=== PATIENT | male | born 1965 | race Caucasian/White ===

== ENCOUNTER 2020-06-22 07:13 | Inpatient (IN) | payer MEDICARE, MEDICAID, SELFPAY ==
[2020-06-22] VITALS (8 sets, daily range): BP systolic 101–136; BP diastolic 60–87; PULSE 72–104; RESP 16–34; TEMP 36.8–37.4; O2SAT 95–98; BMI 36.6
--- NOTE | 2020-06-22 | CT_ITS ---
EXAMINATION: CT ABDOMEN AND PELVIS WITH CONTRAST CLINICAL INFORMATION: Diffuse abdominal pain. History of diverticulosis COMPARISON: CT abdomen and pelvis 01/10/2014 and ultrasound abdomen 01/05/2014. TECHNIQUE: Multidetector volumetric images were obtained from the superior aspect of the liver through the pubic symphysis following administration 85 mL of Omnipaque 350 intravenous contrast. Sagittal and coronal reformatted images were obtained on the technologist's workstation. Oral contrast: No This CT examination was performed using dose optimization techniques as appropriate, variously including the following: *Automated exposure control *Adjustment of mA and/or kV according to patient size (this includes techniques or standardized protocols for targeted exams where dose is matched to indication/reason for exam; i.e. extremities or head) *Use of iterative reconstruction technique DLP: 841 mGy-cm FINDINGS: LUNG BASES: There is minimal bibasilar atelectasis LIVER, GALLBLADDER, AND BILIARY TREE: The liver is normal in size, shape, and attenuation. No focal hepatic lesion or biliary ductal dilatation is present. The gallbladder is distended with several septations seen 1.7 cm radiolucent calculi. A 2 mm radiolucency is seen in the fundus likely a small stone. PANCREAS: Unremarkable. SPLEEN: Unremarkable. ADRENAL GLANDS: Unremarkable. KIDNEYS AND URETERS: The kidneys are normal in size, shape, and attenuation. No hydronephrosis, hydroureter, or calculi seen. There is a 2.3 x 2.1 cm exophytic cyst upper/mid pole left kidney. There is mild bilateral perinephric stranding. BLADDER: Unremarkable. GASTROINTESTINAL TRACT: There is scattered stool and gas seen throughout the colon without any significant distention. The small bowel loops are normal caliber. The stomach there is mildly distended with oral fluid but appears unremarkable. ABDOMINAL WALL: No significant hernia is appreciated. LYMPH NODES: Normal. VASCULAR: Unremarkable. PELVIC VISCERA: There is moderate prostate enlargement extending into the base of bladder. OSSEOUS STRUCTURES: No lytic or sclerotic process seen. CT/CT abdomen pelvis w con IMPRESSION: No acute intra-abdominal process seen. Mild constipation. Moderate prostate enlargement extending into the base of bladder Radiolucent gallstones with the redundant gallbladder with septations. No radiopaque renal calculi or hydronephrosis. Bilateral perinephric stranding. Exophytic cyst upper mid pole left kidney.
--- NOTE | 2020-06-22 07:30 | XR_ITS ---
EXAMINATION: XR CHEST CLINICAL INFORMATION: Rule out free air.. Chest pain and abdominal pain. COMPARISON: None TECHNIQUE: Frontal view of the chest was obtained. FINDINGS: The lungs are hypoexpanded but clear of acute process. The heart size and pulmonary vascularity is normal. No gross bony abnormality seen. XR/XR chest 1V IMPRESSION: Hypoexpanded lungs without acute process.
--- NOTE | 2020-06-22 07:31 | ECG_ITS ---
Test Reason : ABDOMINAL PAIN Blood Pressure : / mmHG Vent. Rate : 077 BPM Atrial Rate : 077 BPM P-R Int : 172 ms QRS Dur : 096 ms QT Int : 374 ms P-R-T Axes : 050 -11 004 degrees QTc Int : 423 ms Normal sinus rhythm Normal ECG When compared with ECG of 14-MAY-2018 16:41, No significant change was found Referred By: Mary Christensen Electronically Signed By:Chico Roblero
--- NOTE | 2020-06-22 07:34 | ED_ITS ---
HPI - Abdominal Pain General Chief Complaint: Abdominal Pain Stated Complaint: ABD PAIN Time Seen by Provider: 06/22/20 07:25 Source: patient Mode of arrival: EMS Limitations: no limitations History of Present Illness HPI narrative: Patient comes to emergency room complaining of diffuse abdominal pain. Patient states he ate a soup at 23:00, since then he has been complaining of worsening pain. Patient states that his abdomen is very swollen, states he feels that there is a lot of air in it, unable to sit due to pain. Patient complaining of nausea, no vomiting or diarrhea, no fever. MD elicited complaint: abdominal pain Related Data Allergies Allergy/AdvReac Type Severity Reaction Status Date / Time olanzapine [From ZYPREXA] Allergy Unknown UNKNOWN Unverified 03/01/20 16:15 mirtazapine [From REMERON] AdvReac Unknown PAIN IN Unverified 03/01/20 16:15 LEGS sertraline [From ZOLOFT] AdvReac Unknown ANXIETY Unverified 03/01/20 16:15 Review of Systems Review of Systems Constitutional : No Weight loss, No Fever, No Chills, No Night Sweats, No Fatigue, No Malaise ENT/Mouth : No Hearing loss, No Ear Pain, No Nasal Congestion, No Sinus Pain, No Hoarseness, No sore throat, No Rhinorrhea, No Swallowing Difficulty Eyes: No Eye Pain, No Swelling, No Redness, No Foreign Body, No Discharge, No Vision Changes Cardiovascular : No Chest Pain, No SOB, No Dyspnea on Exertion, No Orthopnea, No Edema, No Palpitations Respiratory : No Cough, No Sputum, No Wheezing, No Smoke Exposure, No Dyspnea Gastrointestinal : Complaining of Nausea, No Vomiting, No Diarrhea, No Constipation, complaining of severe diffuse abdominal pain, No Hematochezia, No Melena Genitourinary : no irregular bleeding, No Dysuria, No Urinary Frequency, No Hematuria, No Urinary Incontinence, No Urgency, No Flank Pain, No Urinary Flow Changes, No Hesitancy Musculoskeletal : No joint pain, No Myalgias, No Joint Swelling Skin : No Skin Lesions, No rash Neuro : No Weakness, No Numbness, No Paresthesias, No Loss of Consciousness, No Dizziness, No Headache Psych : No Anxiety/Panic, No Depression, No SI/HI/AH/VH, No Social Issues, Heme/Lymph: No Bruising, No Bleeding,No Lymphadenopathy Endocrine : No Polyuria, No Polydipsia, No Temperature Intolerance Physical Exam Vital Signs: Vital Signs: Last Vital Signs Temp 98.5 F 06/22/20 10:33 Pulse 104 H 06/22/20 13:44 Resp 16 06/22/20 13:44 BP 101/68 06/22/20 13:44 Pulse Ox 96 06/22/20 13:44 Body Mass Index 36.6 Appearance: Alert. Oriented X3. Moderate distress due to pain Eyes: Pupils equal, round and reactive to light. ENT: Pharynx normal. Neck: Normal inspection. Neck supple. No lymph nodes noted. No crepitus CVS: Normal heart rate and rhythm. Pulses normal. Normal S1 and S2 Respiratory: No respiratory distress. Breath sounds normal. No Wheezing. No rales Abdomen: Soft, distended, diffuse tenderness in all quadrants Skin: Skin warm and dry. Mildly pale Extremities: No lower extremity edema. No lower extremity edema. No Lace rations. No Rash Neuro: Oriented X 3. No motor deficit. No sensory deficit. Moving all extermities. No slurred speech. Course Reevaluation(s) Reevaluation #1: Patient feeling much better at this time, still having mild diffuse abdominal pain. I discussed the patient with Dr. Ackerman, at this time, surgery is not indicated. Recommendations: Admission to the medical team I discussed the patient with CASIMIRO Lemon, patient being admitted Time: 10:49 [facility] - Abdominal Pain Lab Data Result diagrams: 06/22/20 07:40 06/22/20 07:40 Labs: Lab Results 06/22/20 06/22/20 06/22/20 Range/Units 07:40 07:40 07:40 WBC 10.3 (4.8-10.8) X10*3/uL RBC 4.94 (4.60-5.80) X10*6/uL Hgb 14.8 (14.0-18.0) g/dl Hct 45.4 (42-52) % MCV 91.9 (80-98) fL MCH 30.0 (27.0-33.0) pg MCHC 32.6 (31.0-36.0) g/dl RDW 11.9 (11.0-16.0) % Plt Count 222 (160-400) X10*3/uL MPV 10.0 (9.4-12.4) fL Immature Gran % (Auto) 0.4 (0.0-0.4) % Neut % (Auto) 66.1 (45-73) % Lymph % (Auto) 29.3 (20-40) % [place] % (Auto) 3.3 (2-11) % Eos % (Auto) 0.6 (0-4) % Baso % (Auto) 0.3 (0-2) % Lymph # (Auto) 3.0 (1.2-4.9) X10*3/uL [place] # (Auto) 0.3 (0.1-1.2) X10*3/uL Eos # (Auto) 0.1 (0.0-0.4) X10*3/uL Baso # (Auto) 0.0 (0.0-0.2) X10*3/uL Abs Immat Gran (auto) 0.04 H (0.00-0.03) X10*3/uL Absolute Neuts (auto) 6.8 (2.0-8.3) X10*3/uL Absolute Nucleated RBC 0.000 (0.0-0.012) X10*3/uL Nucleated RBC % (auto) 0.0 (0.0-0.2) /100WBC Sodium 139 (135-145) mmol/L Potassium 4.5 (3.3-5.1) mmol/l Chloride 103 (96-108) mmol/L Carbon Dioxide 26 (22-29) mmol/L Anion Gap 15 (12-20) BUN 14 (9-16) mg/dL Creatinine 1.07 (0.5-1.4) mg/dL Estim Creat Clear Calc 85.6 Estimated GFR > 60 Random Glucose 166 H (60-115) mg/dL Lactic Acid 1.6 (0.5-2.0) mmol/L Calcium 9.2 (8.4-10.2) mg/dL Total Bilirubin 1.1 H (0.0-1.0) mg/dL Direct Bilirubin 0.8 H (0.0-0.5) mg/dL AST 729 H (5-37) U/L ALT 352 H (0-40) U/L Alkaline Phosphatase 187 H (39-117) U/L Total Protein 7.3 (6.5-8.0) g/dL Albumin 4.4 (3.5-5.0) g/dL Lipase 32 (8-78) U/L Ethyl Alcohol mg/dL COVID-19 ([facility]) (Negative) COVID-19 Clin Com 06/22/20 06/22/20 Range/Units 07:40 08:19 WBC (4.8-10.8) X10*3/uL RBC (4.60-5.80) X10*6/uL Hgb (14.0-18.0) g/dl Hct (42-52) % MCV (80-98) fL MCH (27.0-33.0) pg MCHC (31.0-36.0) g/dl RDW (11.0-16.0) % Plt Count (160-400) X10*3/uL MPV (9.4-12.4) fL Immature Gran % (Auto) (0.0-0.4) % Neut % (Auto) (45-73) % Lymph % (Auto) (20-40) % [place] % (Auto) (2-11) % Eos % (Auto) (0-4) % Baso % (Auto) (0-2) % Lymph # (Auto) (1.2-4.9) X10*3/uL [place] # (Auto) (0.1-1.2) X10*3/uL Eos # (Auto) (0.0-0.4) X10*3/uL Baso # (Auto) (0.0-0.2) X10*3/uL Abs Immat Gran (auto) (0.00-0.03) X10*3/uL Absolute Neuts (auto) (2.0-8.3) X10*3/uL Absolute Nucleated RBC (0.0-0.012) X10*3/uL Nucleated RBC % (auto) (0.0-0.2) /100WBC Sodium (135-145) mmol/L Potassium (3.3-5.1) mmol/l Chloride (96-108) mmol/L Carbon Dioxide (22-29) mmol/L Anion Gap (12-20) BUN (9-16) mg/dL Creatinine (0.5-1.4) mg/dL Estim Creat Clear Calc Estimated GFR Random Glucose (60-115) mg/dL Lactic Acid (0.5-2.0) mmol/L Calcium (8.4-10.2) mg/dL Total Bilirubin (0.0-1.0) mg/dL Direct Bilirubin (0.0-0.5) mg/dL AST (5-37) U/L ALT (0-40) U/L Alkaline Phosphatase (39-117) U/L Total Protein (6.5-8.0) g/dL Albumin (3.5-5.0) g/dL Lipase (8-78) U/L Ethyl Alcohol < 10 mg/dL COVID-19 ([facility]HA) Negative (Negative) COVID-19 Clin Com See Note Imaging Data Chest x-ray: Radiologist's impression: FINDINGS: The lungs are hypoexpanded but clear of acute process. The heart size and pulmonary vascularity is normal. No gross bony abnormality seen. XR/XR chest 1V IMPRESSION: Hypoexpanded lungs without acute process. CT of the abdomen: Radiologist's impression: LUNG BASES: There is minimal bibasilar atelectasis LIVER, GALLBLADDER, AND BILIARY TREE: The liver is normal in size, shape, and attenuation. No focal hepatic lesion or biliary ductal dilatation is present. The gallbladder is distended with several septations seen 1.7 cm radiolucent calculi. A 2 mm radiolucency is seen in the fundus likely a small stone. PANCREAS: Unremarkable. SPLEEN: Unremarkable. ADRENAL GLANDS: Unremarkable. KIDNEYS AND URETERS: The kidneys are normal in size, shape, and attenuation. No hydronephrosis, hydroureter, or calculi seen. There is a 2.3 x 2.1 cm exophytic cyst upper/mid pole left kidney. There is mild bilateral perinephric stranding. BLADDER: Unremarkable. GASTROINTESTINAL TRACT: There is scattered stool and gas seen throughout the colon without any significant distention. The small bowel loops are normal caliber. The stomach there is mildly distended with oral fluid but appears unremarkable. ABDOMINAL WALL: No significant hernia is appreciated. LYMPH NODES: Normal. VASCULAR: Unremarkable. PELVIC VISCERA: There is moderate prostate enlargement extending into the base of bladder. OSSEOUS STRUCTURES: No lytic or sclerotic process seen. CT/CT abdomen pelvis w con IMPRESSION: No acute intra-abdominal process seen. Mild constipation. Moderate prostate enlargement extending into the base of bladder Radiolucent gallstones with the redundant gallbladder with septations. No radiopaque renal calculi or hydronephrosis. Bilateral perinephric stranding. Exophytic cyst upper mid pole left kidney. Abdominal ultrasound: Radiologist's impression: PANCREAS: Normal. LIVER: The liver is normal in size. The liver contour is normal. There is diffuse echogenic liver with areas of focal fatty sparing. There is mild intrahepatic biliary duct dilatation seen. GALLBLADDER: The gallbladder is moderately distended with echogenic stones and echogenic bile, but no wall thickening seen COMMON BILE DUCT: Normal in caliber measuring 0.42 cm in diameter. RIGHT KIDNEY: Normal. No hydronephrosis. No renal calculi or focal parenchymal lesions. The kidney measures 10.9 cm in maximum dimension. FREE FLUID: None. US/US abdomen limited IMPRESSION: Diffuse fatty infiltration of liver with areas of focal fatty sparing. Echogenic stones and echogenic bile but no wall thickening seen. CBD, right kidney and pancreas appears unremarkable. ECG Data Attestation: I personally reviewed and interpreted this ECG as follows: (Sinus rhythm, heart rate 77, no ST segment depressions or elevations, nonspecific T- wave inversions in lead III) Discharge Plan Discharge Clinical Impression: Abdominal pain, LFT elevation Patient Disposition: Admitted As Inpatient [facility] Past Medical History Medical History (Updated 06/22/20 @ 13:51 by Mary Christensen MD) Alcohol abuse Diverticulosis Suicidal ideation Social History Social History Smoked in Last 30 Days: No Use of substances other than those prescribed or required for medical reasons: No Advance Directives: No Advance Directives Information Provided: Yes
[2020-06-22] MEDS: HYDROmorphone HCl 1 MG/ML SYRINGE IVPUSH (07:46)
[2020-06-22] MEDS: ondansetron HCL 4 MG/2 ML VIAL IVPUSH (07:46)
[2020-06-22] MEDS: 0.9 % Sodium Chloride 1,000 ML 999 ML IVCONT (07:46)
[2020-06-22 07:47] LABS: Basophils Percent Auto 0.3 % (0-2); Eosinophils Absolute Auto 0.1 X10*3/uL (0.0-0.4); Eosinophils Percent Auto 0.6 % (0-4); Hematocrit 45.4 % (42-52); Hemoglobin 14.8 g/dl (14.0-18.0); Imm Gran Abs Auto 0.04 X10*3/uL (0.00-0.03); Imm Gran Pct Auto 0.4 % (0.0-0.4); Lymphocytes Percent Auto 29.3 % (20-40); MANUAL DIFF FLAG NO; Mean Corpuscular HGB Conc 32.6 g/dl (31.0-36.0); Mean Corpuscular Volume 91.9 fL (80-98); Monocytes Absolute Auto 0.3 X10*3/uL (0.1-1.2); Monocytes Percent Auto 3.3 % (2-11); Neutrophils Absolute Auto 6.8 X10*3/uL (2.0-8.3); Neutrophils Percent Auto 66.1 % (45-73); Platelet Count 222 X10*3/uL (160-400); Red Blood Count 4.94 X10*6/uL (4.60-5.80); Red Cell Distribution Width 11.9 % (11.0-16.0); White Blood Count 10.3 X10*3/uL (4.8-10.8)
[2020-06-22 08:06] LABS: Lactic Acid 1.6 mmol/L (0.5-2.0)
[2020-06-22 08:08] LABS: Ethanol < 10 mg/dL
[2020-06-22 08:14] LABS: Alanine Aminotransferase 352 U/L (0-40); Albumin Level 4.4 g/dL (3.5-5.0); Alkaline Phosphatase 187 U/L (39-117); Anion Gap 15 (12-20); Aspartate Amino Transferase 729 U/L (5-37); Bilirubin Direct 0.8 mg/dL (0.0-0.5); Bilirubin Total 1.1 mg/dL (0.0-1.0); Blood Urea Nitrogen 14 mg/dL (9-16); Calcium 9.2 mg/dL (8.4-10.2); Carbon Dioxide 26 mmol/L (22-29); Chloride 103 mmol/L (96-108); Creatinine Clr Calc Pharmacy 85.6; Estimated Glomerular Filt Rate > 60; Glucose Random 166 mg/dL (60-115); Lipase 32 U/L (8-78); Potassium 4.5 mmol/l (3.3-5.1); Sodium 139 mmol/L (135-145); Total Protein 7.3 g/dL (6.5-8.0)
[2020-06-22 08:38] LABS: COVID-19 Test Negative (Negative); IDNOW Serial# 9DD0AD1C
[2020-06-22] MEDS: iohexoL 350 MG/ML 100 ML INFUS..BTL 85 ML IV (09:36)
--- NOTE | 2020-06-22 09:53 | US_ITS ---
EXAMINATION: US ABDOMEN LIMITED CLINICAL INFORMATION: Right upper quadrant pain.. COMPARISON: None TECHNIQUE: Real-time imaging of the right upper quadrant abdominal viscera. FINDINGS: PANCREAS: Normal. LIVER: The liver is normal in size. The liver contour is normal. There is diffuse echogenic liver with areas of focal fatty sparing. There is mild intrahepatic biliary duct dilatation seen. GALLBLADDER: The gallbladder is moderately distended with echogenic stones and echogenic bile, but no wall thickening seen COMMON BILE DUCT: Normal in caliber measuring 0.42 cm in diameter. RIGHT KIDNEY: Normal. No hydronephrosis. No renal calculi or focal parenchymal lesions. The kidney measures 10.9 cm in maximum dimension. FREE FLUID: None. US/US abdomen limited IMPRESSION: Diffuse fatty infiltration of liver with areas of focal fatty sparing. Echogenic stones and echogenic bile but no wall thickening seen. CBD, right kidney and pancreas appears unremarkable.
[2020-06-22] MEDS: Prochlorperazine Edisylate 10 MG/2 ML VIAL IVPUSH (10:30)
--- NOTE | 2020-06-22 14:15 | PM.CNGS ---
History of Present Illness Consult details Consult date: 06/22/20 Narrative: 55M, here in the ED for abdominal pain. He says this started late yesterday afternoon. He described this near constant, mostly diffuse. He says this was not limited to the right upper quadrant or epigastric area. He says may have a little nausea. In view of the persistence of pain last night, he came to the ED. He says his pain has actually resolved. He says he no longer has abdominal pain. His AST and ALT were elevated here in the ED. Review of Systems Constitutional: Constitutional: Denies chills and Denies fever(s) Cardiovascular: Cardiovascular: Denies chest pain, Denies dyspnea and Denies dyspnea on exertion Respiratory: Respiratory: Denies cough, Denies dyspnea and Denies dyspnea on exertion Gastrointestinal: Gastrointestinal: Denies hematochezia and Denies change in bowel habits Genitourinary: Genitourinary: Denies hematuria and Denies difficulty urinating Musculoskeletal: Musculoskeletal: Denies back pain and Denies limited range of motion Neurologic: Denies focal weakness and Denies convulsions Psychiatric: Psychiatric: Denies depression and Denies mood swings PMF Past Medical History Medical History Alcohol abuse Diverticulosis Suicidal ideation Social History Social History Smoked in Last 30 Days: No Use of substances other than those prescribed or required for medical reasons: No Advance Directives: No Advance Directives Information Provided: Yes Meds Allergies Allergy/AdvReac Type Severity Reaction Status Date / Time olanzapine [From ZYPREXA] Allergy Unknown UNKNOWN Unverified 03/01/20 16:15 mirtazapine [From REMERON] AdvReac Unknown PAIN IN Unverified 03/01/20 16:15 LEGS sertraline [From ZOLOFT] AdvReac Unknown ANXIETY Unverified 03/01/20 16:15 Physical Exam Vital Signs: Vital Signs: Last Vital Signs Temp 98.5 F 06/22/20 10:33 Pulse 104 H 06/22/20 13:44 Resp 16 06/22/20 13:44 BP 101/68 06/22/20 13:44 Pulse Ox 96 06/22/20 13:44 Body Mass Index 36.6 Const: General: comfortable and no acute distress Orientation/consciousness: patient oriented x3 Neck: Neck: Yes no lymphadenopathy Resp: Auscultation: clear to auscultation bilaterally Cardio: Rhythm: regular rhythm GI: Palpation (GI): Soft to palpation, nontender and no guarding Neuro: General: patient oriented x3 Results Labs Result diagrams: 06/22/20 07:40 06/22/20 07:40 Labs: Abnormal lab results 06/22/20 06/22/20 Range/Units 07:40 07:40 Abs Immat Gran (auto) 0.04 H (0.00-0.03) X10*3/uL Random Glucose 166 H (60-115) mg/dL Total Bilirubin 1.1 H (0.0-1.0) mg/dL Direct Bilirubin 0.8 H (0.0-0.5) mg/dL AST 729 H (5-37) U/L ALT 352 H (0-40) U/L Alkaline Phosphatase 187 H (39-117) U/L Short CBC 06/22/20 Range/Units 07:40 WBC 10.3 (4.8-10.8) X10*3/uL Hgb 14.8 (14.0-18.0) g/dl Hct 45.4 (42-52) % Plt Count 222 (160-400) X10*3/uL BMP 06/22/20 07:40 Sodium 139 Potassium 4.5 Chloride 103 Carbon Dioxide 26 BUN 14 Creatinine 1.07 Calcium 9.2 Liver Function 06/22/20 Range/Units 07:40 Total Bilirubin 1.1 H (0.0-1.0) mg/dL Direct Bilirubin 0.8 H (0.0-0.5) mg/dL AST 729 H (5-37) U/L ALT 352 H (0-40) U/L Alkaline Phosphatase 187 H (39-117) U/L Albumin 4.4 (3.5-5.0) g/dL All other labs normal. Assessment and Plan (1) LFT elevation: Status: Acute Pattern of elevation suggestive more of liver parenchymal disease. The patient has gallstones but no cholecystitis. He currently does not have pain or tenderness anymore. I would recommend following his LFTs. He can have clear liquids and his diet may be advanced as tolerated. He looks well and has a very benign exam. He does not appear to require any surgical intervention at this time.
[2020-06-22 14:19] LABS: Acetaminophen LAB 2 mcg/mL (<30)
--- NOTE | 2020-06-22 15:16 | P.HPHOSP_ITS ---
History of Present Illness Date of Service: 06/22/20 <CASIMIRO Biggs - Last Filed: 06/22/20 15:28> Chief Complaint: Abdominal pain <CASIMIRO Biggs - Last Filed: 06/22/20 15:28> This is a 55-year-old Belarusian-speaking male who presents to the emergency department with abdominal pain. He reports this pain began last evening around 23:00 after eating Cream of Wheat. His pain was persistent and not localized to 1 specific area. He denies any associated nausea, vomiting, diarrhea, fever, chills. In the emergency department he received IV pain medication and his pain resolved. CT scan showed evidence of gallstones but no cholecystitis. He underwent ultrasound which again showed gallstones without cholecystitis as well as ICS fatty infiltration of the liver. LFTs were noted to be elevated. He was evaluated by General surgery who felt this elevation represented parenchymal disease and no urgent surgical intervention was required. Tylenol level was 2. Patient reports using Tylenol once last night otherwise does not use Tylenol on a regular basis. He drinks alcohol on the weekend but not during the week. He denies history of IV drug use or blood transfusion. <CASIMIRO Biggs - Last Filed: 06/22/20 15:28> Review of Systems Review of Systems: Yes all other systems are reviewed and are negative <CASIMIRO Biggs - Last Filed: 06/22/20 15:28> Constitutional: Constitutional: Denies chills and Denies fever(s) <CASIMIRO Biggs - Last Filed: 06/22/20 15:28> Cardiovascular: Cardiovascular: Denies chest pain <CASIMIRO Biggs Last Filed: 06/22/20 15:28> Respiratory: Respiratory: Denies cough <CASIMIRO Biggs Last Filed: 06/22/20 15:28> Gastrointestinal: Gastrointestinal: Reports abdominal pain, Denies diarrhea, Denies nausea and Denies vomiting <CASIMIRO Biggs Last Filed: 06/22/20 15:28> Neurologic: Denies focal weakness and Denies convulsions <CASIMIRO Biggs Last Filed: 06/22/20 15:28> [facility] Medical History: Medical History (Updated 06/23/20 @ 12:44 by CASIMIRO Ayala) Alcohol abuse Anxiety Asthma Diverticulosis GERD (gastroesophageal reflux disease) Hyperlipidemia Hypertension BRI (obstructive sleep apnea) Suicidal ideation <CASIMIRO Biggs - Last Filed: 06/22/20 15:28> Functional capacity: independent ambulation <CASIMIRO Biggs - Last Filed: 06/22/20 15:28> Family history: reviewed and not pertinent <CASIMIRO Biggs - Last Filed: 06/22/20 15:28> Social History: Social History (Updated 06/22/20 @ 15:22 by CASIMIRO Biggs) Household Members: Friend(s) Alcohol intake: current Alcohol intake frequency: does not drink Smoking Status: Former smoker Smoked in Last 30 Days: No Use of substances other than those prescribed or required for medical reasons: No Advance Directives: No Advance Directives Information Provided: Yes <CASIMIRO Biggs - Last Filed: 06/22/20 15:28> Meds Allergies/Adverse reactions: Allergies Allergy/AdvReac Type Severity Reaction Status Date / Time olanzapine [From ZYPREXA] Allergy Unknown UNKNOWN Unverified 03/01/20 16:15 mirtazapine [From REMERON] AdvReac Unknown PAIN IN Unverified 03/01/20 16:15 LEGS sertraline [From ZOLOFT] AdvReac Unknown ANXIETY Unverified 03/01/20 16:15 <CASIMIRO Biggs - Last Filed: 06/22/20 15:28> Home medications: Home Medications Medication Instructions Recorded Confirmed Type albuterol sulfate [Ventolin HFA] 2 puff INHALATION Q4H PRN 06/22/20 06/22/20 History budesonide-formoterol [Symbicort] 2 puff INHALATION BID 06/22/20 06/22/20 History clonazepam 2 mg PO BEDTIME 06/22/20 06/22/20 History dorzolamide-timolol [Cosopt] 1 drp OPHTHALMIC (EYE) BID 06/22/20 06/22/20 History duloxetine [Cymbalta] 60 mg PO DAILY 06/22/20 06/22/20 History glimepiride 1 mg PO DAILY 06/22/20 06/22/20 History ketoconazole 1 appl TOPICAL 2XW PRN 06/22/20 06/22/20 History loratadine 10 mg PO DAILY PRN 06/22/20 06/22/20 History montelukast [Singulair] 10 mg PO BEDTIME 06/22/20 06/22/20 History naltrexone 50 mg PO DAILY 06/22/20 06/22/20 History omeprazole [Prilosec] 20 mg PO BID 06/22/20 06/22/20 History rosuvastatin 40 mg PO DAILY 06/22/20 06/22/20 History tamsulosin [Flomax] 0.4 mg PO BEDTIME 06/22/20 06/22/20 History verapamil 100 mg PO BEDTIME 06/22/20 06/22/20 History <CASIMIRO Biggs - Last Filed: 06/22/20 15:28> Physical Exam Vital Signs and Narrative: Vital Signs: Last Vital Signs Temp 98.5 F 06/22/20 10:33 Pulse 104 H 06/22/20 13:44 Resp 20 06/22/20 14:54 BP 101/68 06/22/20 13:44 Pulse Ox 96 06/22/20 13:44 Body Mass Index 36.6 <CASIMIRO Biggs Last Filed: 06/22/20 15:28> Const: Nutritional Appearance: well nourished <CASIMIRO Biggs Last Filed: 06/22/20 15:28> Orientation/consciousness: patient oriented x3 <CASIMIRO Biggs Last Filed: 06/22/20 15:28> HENMT: Head: Yes normocephalic and Yes atraumatic <CASIMIRO Biggs Last Filed: 06/22/20 15:28> Eyes: Sclerae: sclerae normal <CASIMIRO Biggs Last Filed: 06/22/20 15:28> Chest: Chest palpation & inspection: normal inspection of the chest <CASIMIRO Biggs Last Filed: 06/22/20 15:28> Resp: Effort & Inspection: normal respiratory effort and no respiratory distress <CASIMIRO Biggs Last Filed: 06/22/20 15:28> Auscultation: clear to auscultation bilaterally <CASIMIRO Biggs - Last Filed: 06/22/20 15:28> Cardio: Rate: regular rate <CASIMIRO Biggs - Last Filed: 06/22/20 15:28> Rhythm: regular rhythm <CASIMIRO Biggs - Last Filed: 06/22/20 1 5:28> GI: Palpation (GI): Soft to palpation and nontender <CASIMIRO Biggs - Last Filed: 06/22/20 15:28> Skin: General skin exam: no rashes or lesions noted <CASIMIRO Biggs - Last Filed: 06/22/20 15:28> Neuro: General: patient oriented x3 <CASIMIRO Biggs - Last Filed: 06/22/20 15:28> Cranial nerves: Yes CN's II-XII intact bilaterally and Yes Bilaterally intact EOM present <CASIMIRO Biggs - Last Filed: 06/22/20 15:28> Extrem: General: Yes normal to inspection <CASIMIRO Biggs - Last Filed: 06/22/20 15:28> Results Labs CBC and Chem 7: : 06/22/20 07:40 06/23/20 06:05 <CASIMIRO Biggs - Last Filed: 06/22/20 15:28> Labs: Laboratory Results - last 24 hr 06/22/20 06/22/20 06/22/20 07:40 07:40 07:40 MCV 91.9 MCH 30.0 MCHC 32.6 RDW 11.9 Plt Count 222 MPV 10.0 Immature Gran % (Auto) 0.4 Neut % (Auto) 66.1 Lymph % (Auto) 29.3 [place] % (Auto) 3.3 Eos % (Auto) 0.6 Baso % (Auto) 0.3 Lymph # (Auto) 3.0 [place] # (Auto) 0.3 Eos # (Auto) 0.1 Baso # (Auto) 0.0 Abs Immat Gran (auto) 0.04 H Absolute Neuts (auto) 6.8 Absolute Nucleated RBC 0.000 Nucleated RBC % (auto) 0.0 Anion Gap 15 Estim Creat Clear Calc 85.6 Estimated GFR > 60 Random Glucose 166 H Lactic Acid 1.6 Calcium 9.2 Total Bilirubin 1.1 H Direct Bilirubin 0.8 H AST 729 H ALT 352 H Alkaline Phosphatase 187 H Total Protein 7.3 Albumin 4.4 Lipase 32 Acetaminophen Ethyl Alcohol COVID-19 ([facility]) COVID-19 Clin Com 06/22/20 06/22/20 06/22/20 07:40 08:19 13:51 MCV MCH MCHC RDW Plt Count MPV Immature Gran % (Auto) Neut % (Auto) Lymph % (Auto) [place] % (Auto) Eos % (Auto) Baso % (Auto) Lymph # (Auto) [place] # (Auto) Eos # (Auto) Baso # (Auto) Abs Immat Gran (auto) Absolute Neuts (auto) Absolute Nucleated RBC Nucleated RBC % (auto) Anion Gap Estim Creat Clear Calc Estimated GFR Random Glucose Lactic Acid Calcium Total Bilirubin Direct Bilirubin AST ALT Alkaline Phosphatase Total Protein Albumin Lipase Acetaminophen 2 Ethyl Alcohol < 10 COVID-19 ([facility]) Negative COVID-19 Clin Com See Note <CASIMIRO Biggs - Last Filed: 06/22/20 15:28> Imaging Radiologist's Impressions: Impressions Abdomen/Pelvis CT 06/22/20 00:00 IMPRESSION: No acute intra-abdominal process seen. Mild constipation. Moderate prostate enlargement extending into the base of bladder Radiolucent gallstones with the redundant gallbladder with septations. No radiopaque renal calculi or hydronephrosis. Bilateral perinephric stranding. Exophytic cyst upper mid pole left kidney. Chest X-Ray 06/22/20 07:30 IMPRESSION: Hypoexpanded lungs without acute process. Abdomen Ultrasound 06/22/20 09:53 IMPRESSION: Diffuse fatty infiltration of liver with areas of focal fatty sparing. Echogenic stones and echogenic bile but no wall thickening seen. CBD, right kidney and pancreas appears unremarkable. <CASIMIRO Biggs - Last Filed: 06/22/20 15:28> Assessment and Plan (1) LFT elevation: Problem details: No acute ABD pain. ABD soft, non, tender, no guarding. VSS. Tbili and ALT continue to elevate suggesting liver pathology. AST improving. <CASIMIRO Biggs - Last Filed: 06/22/20 15:28> Status: Acute <CASIMIRO Biggs - Last Filed: 06/22/20 15:28> This is a 55-year-old male with history of BRI, hypertension, dyslipidemia, anxiety, depression, asthma presents to the emergency department with abdominal pain found to have elevated LFTs Abdominal pain Resolved Elevated LFTs Gallstone seen on imaging but no obstruction evaluated by surgery who feels elevated LFTs are secondary to parenchymal disease Diffuse Fatty infiltration noted. Also reports alcohol use every weekend Tylenol level 2 Hepatitis panel pending -trend LFTs -clear liquid diet, advance as tolerated BRI CPAP The remainder of his home medications will be continued once med reconciliation has been completed DVT prophylaxis-Lovenox Code status-full code This case was discussed with Dr. Rivera <CASIMIRO Biggs - Last Filed: 06/22/20 15:28>
[2020-06-22] MEDS: Enoxaparin Sodium 40 MG/0.4 ML SYRINGE SUBCUT (18:45)
[2020-06-22] MEDS: 0.9 % Sodium Chloride Flush 3 ML SYRINGE IVFLUSH (18:45)
[2020-06-22 21:45] LABS: INTERNATIONAL NORM RATIO 1.1 (0.9-1.1); Prothrombin Time 13.2 SEC (10.8-13.0)
[2020-06-22 22:46] LABS: Glucose Urine UA NEG (NEG); Leukocyte Esterase Urine NEG (NEG); Nitrite Urine NEG (NEG); PH 6.5 (5.0-8.0); Urine Blood NEG (NEG); Urine Ketones NEG (NEG); Urine Protein NEG (NEG-TRACE)
[2020-06-22 22:55] LABS: Amphetamine Screen Urine Not Detected (Not Detect); Barbiturates, Urine Not Detected (Not Detect); Benzodiazepines Screen Urine Not Detected (Not Detect); Cannabinoid Screen Urine Not Detected (Not Detect); Cocaine Screen Urine Not Detected (Not Detect); Opiate Screen Urine Not Detected (Not Detect); Phencyclidine Screen Urine Not Detected (Not Detect)
[2020-06-22 23:33] LABS: Appearance Urine CLEAR; Color Urine YELLOW; UACC Culture Trigger NO
[2020-06-23] VITALS (8 sets, daily range): BP systolic 120–142; BP diastolic 73–90; PULSE 68–84; RESP 16–20; TEMP 36.7–37.2; O2SAT 96–98
[2020-06-23] MEDS: 0.9 % Sodium Chloride Flush 3 ML SYRINGE IVFLUSH ×4 (01:44→21:34)
[2020-06-23] MEDS: clonazePAM 1 MG TABLET PO ×2 (02:28→21:31)
[2020-06-23 06:40] LABS: Alanine Aminotransferase 528 U/L (0-40); Albumin Level 4.5 g/dL (3.5-5.0); Alkaline Phosphatase 185 U/L (39-117); Anion Gap 15 (12-20); Aspartate Amino Transferase 386 U/L (5-37); Bilirubin Direct 1.7 mg/dL (0.0-0.5); Bilirubin Total 2.6 mg/dL (0.0-1.0); Blood Urea Nitrogen 11 mg/dL (9-16); Carbon Dioxide 24 mmol/L (22-29); Chloride 104 mmol/L (96-108); Creatinine Clr Calc Pharmacy 105.3; Estimated Glomerular Filt Rate > 60; Glucose Random 110 mg/dL (60-115); Potassium 3.8 mmol/l (3.3-5.1); Sodium 139 mmol/L (135-145); Total Protein 7.2 g/dL (6.5-8.0)
[2020-06-23] MEDS: DULoxetine HCl 60 MG CAPSULE.DR PO (09:45)
[2020-06-23] MEDS: Naltrexone HCl 50 MG TABLET PO (09:45)
[2020-06-23] MEDS: Fluticasone/Vilanterol 100/25 BLST.W.DEV 1 PUFF INHALE (09:45)
[2020-06-23] MEDS: Dorzolamide/Timolo 2.23%/0.68% 10 ML DRBTL 1 DROP EYE-BOTH (09:45)
--- NOTE | 2020-06-23 11:26 | PM.PNGS ---
Subjective Subjective Date of Service: 06/23/20 <CASIMIRO Ayala - Last Filed: 06/23/20 14:16> 06/23/20 <Ann Marie Montero MD - Last Filed: 06/23/20 14:21> Patient reports: no new complaints <CASIMIRO Ayala - Last Filed: 06/23/20 14:16> Interval history: Patient seen in the ED. He is resting comfortably in bed. He denies any ongoing pain. No N/V/D. <CASIMIRO Ayala - Last Filed: 06/23/20 14:16> Physical Exam Vital Signs: Vital Signs: Last Vital Signs Temp 98.1 F 06/23/20 11:16 Pulse 68 06/23/20 11:16 Resp 17 06/23/20 11:16 BP 142/79 H 06/23/20 11:16 Pulse Ox 96 06/23/20 11:16 Body Mass Index 36.6 <CASIMIRO Ayala - Last Filed: 06/23/20 14:16> Const: General: no acute distress <CASIMIRO Ayala - Last Filed: 06/23/20 14:16> Nutritional Appearance: obese <CASIMIRO Ayala - Last Filed: 06/23/20 14:16> GI: Inspection: Yes normal to inspection and Yes Abdominal panniculus present <CASIMIRO Ayala - Last Filed: 06/23/20 14:16> Palpation (GI): Soft to palpation <CASIMIRO Ayala - Last Filed: 06/23/20 14:16> Skin: General skin exam: no rashes or lesions noted <CASIMIRO Ayala - Last Filed: 06/23/20 14:16> Extrem: General: Yes normal to inspection, Yes no clubbing, cyanosis or edema and Yes no calf tenderness <CASIMIRO Ayala - Last Filed: 06/23/20 14:16> Progress Note: A&P Assessment and plan (1) LFT elevation: Problem details: No acute ABD pain. ABD soft, non, tender, no guarding. VSS. Tbili and ALT continue to elevate suggesting liver pathology. AST improving. <CASIMIRO Ayala - Last Filed: 06/23/20 14:16> Status: Acute <CASIMIRO Ayala - Last Filed: 06/23/20 14:16> Assessment and Plan: Continue current care. Will continue to monitor No surgical intervention needed at this time Will consult GI for evaluation. <CASIMIRO Ayala - Last Filed: 06/23/20 14:16> . General Surgery Attending - Juwan Montero M.D. Patient was evaluated and examined at the bedside with Mr. Giorgio Jurado PA-C. I confirm above findings and plan as documented. He is comfortable today without abdominal pain. Non surgical as per DR. Ackerman. Will obtain GI consultation. <Ann Marie Montero MD - Last Filed: 06/23/20 14:21> Fall Risk Details Current Medications: Current Medications Generic Name Dose Route Start Last Admin Trade Name Freq PRN Reason Stop Dose Admin Clonazepam 1 mg 06/23/20 02:10 06/23/20 02:28 Clonazepam 1 Mg Tablet PO 1 mg BEDTIME HUMBERTO Administration Docusate Sodium 100 mg 06/22/20 15:13 Docusate Sodium 100 Mg Capsule PO DAILY PRN Constipation Dorzolamide/Timolol 1 drop 06/23/20 09:00 06/23/20 09:45 Dorzolamide/Timolo 2.23%/0.68% 10 Ml Drbtl EYE-BOTH 1 drop BID HUMBERTO Administration Duloxetine HCl 60 mg 06/23/20 09:00 06/23/20 09:45 Duloxetine Hcl 60 Mg Capsule.Dr PO 60 mg DAILY HUMBERTO Administration Enoxaparin Sodium 40 mg 06/22/20 15:15 06/22/20 18:45 Enoxaparin Sodium 40 Mg/0.4 Ml Syringe SUBCUT 40 mg Q24H HUMBERTO Administration Fluticasone/Vilanterol 1 puff 06/23/20 09:00 06/23/20 09:45 Fluticasone/Vilanterol 100/25 Blst.W.Dev INHALE 1 puff DAILY HUMBERTO Administration Montelukast Sodium 10 mg 06/23/20 21:00 Montelukast Sodium 10 Mg Tablet PO BEDTIME HUMBERTO Naltrexone HCl 50 mg 06/23/20 09:00 06/23/20 09:45 Naltrexone Hcl 50 Mg Tablet PO 50 mg DAILY HUMBERTO Administration Ondansetron HCl 4 mg 06/22/20 15:13 Ondansetron Hcl 4 Mg/2 Ml Vial IVPUSH Q8H PRN Nausea and Vomiting Pharmacy Consult 1 each 06/22/20 15:08 Consult Rx Perform Med Rec MISCELLANE ONCE PRN Consult order Sodium Chloride 3 ml 06/22/20 16:00 06/23/20 09:45 0.9 % Sodium Chloride Flush 3 Ml Syringe IVFLUSH 3 ml QSHIFT HUMBERTO Administration Tamsulosin HCl 0.4 mg 06/23/20 21:00 Tamsulosin Hcl 0.4 Mg Capsule PO BEDTIME HUMBERTO Verapamil HCl 100 mg 06/23/20 21:00 Verapamil Hcl Sr 100 Mg Cap24h.Pct PO BEDTIME HUMBERTO Protocol <CASIMIRO Ayala - Last Filed: 06/23/20 14:16> Time Spent With Patient Time: Total time spent is greater than 50% in coordination of care (as documented) at patient's floor/unit and/or counseling patient: <CASIMIRO Ayala - Last Filed: 06/23/20 14:16> Time with patient: less than 15 minutes <Ann Marie Montero MD - Last Filed: 06/23/20 14:21> Progress Note: Quality VTE Deep Vein Thrombosis/Pulmonary Embolism Present on Admission: No <CASIMIRO Ayala - Last Filed: 06/23/20 14:16>
--- NOTE | 2020-06-23 13:31 | P.CNGI_ITS ---
History of Present Illness Data of Consult Service Date: 06/23/20 Requesting physician: Giorgio Jurado Primary Care Provider: Unknown Physician HPI Reason for consult: Abdominal pain, elevated LFTs, gallstones. 55 year old Jordanian-speaking male [place] [facility] on morning of 06/22/2020 with 1 day history of sudden onset of diffuse abdominal pain: Patient comes to emergency room complaining of diffuse abdominal pain. Patient states he ate a soup at 23:00, since then he has been complaining of worsening pain. Patient states that his abdomen is very swollen, states he feels that there is a lot of air in it, unable to sit due to pain. Patient complaining of nausea, no vomiting or diarrhea, no fever. MD elicited complaint: abdominal pain Lab evaluation showed elevated LFTs. (of note patient had normal LFTs in Apr, 2018). IMAGING STUDIES: 06/22/[address] SCAN SHOWED: No acute intra-abdominal process seen. Mild constipation. Moderate prostate enlargement extending into the base of bladder Radiolucent gallstones with the redundant gallbladder with septations. No radiopaque renal calculi or hydronephrosis. Bilateral perinephric stranding. Exophytic cyst upper mid pole left kidney. 06/22/20 ABDOMINAL ULTRASOUND SHOWED: Diffuse fatty infiltration of liver with areas of focal fatty sparing. Echogenic stones and echogenic bile but no wall thickening seen. CBD, right kidney and pancreas appears unremarkable. Pt noted generalized abdominal pain 10-15 min after eating Cream of Wheat. Pain was throbbing in character and 10/10 in intensity. His pain was persistent and not localized to 1 specific area. He denies any associated nausea, vomiting, diarrhea, fever, chills or change in BMs. Patient denies symptoms of heartburn, dysphagia, recent change in appetite or weight. Denies recent change in bowel habits, constipation, diarrhea, black stools or rectal bleeding. Pain resolved after patient was given IV pain medication In the ER. Abd CT and US findings as noted above. Pt was evaluated by General surgery who felt this elevation represented parenchymal disease and no urgent surgical intervention was required. Tylenol level was 2. Patient reports using Tylenol once last night otherwise does not use Tylenol on a regular basis. He drinks alcohol on the weekend but not during the week. He denies history of IV drug use or blood transfusion. Patient denies major cardiac or pulmonary problems, He wears a CPAP machine at night for obstructive sleep apnea Denies problems with anesthesia in the past. Denies being on chronic anticoagulation. Patient denies known family history of liver disease, colon polyps, colon cancer or other GI malignancies. Pt has 3 children and is on disability. 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 PAST GI HISTORY BY REVIEW OF MEDICAL RECORDS: Jul 2012 colonoscopy was performed by Dr. Ackerman and showed internal and external hemorrhoids and no polyps Review of Systems Constitutional: Constitutional: Denies fever(s), Denies headache(s) and Denies weight loss Eyes: Eyes: Denies eye discharge and Denies irritation ENT: Reports Normal hearing present, Denies dysphagia, Denies dizziness and Denies headache(s) Cardiovascular: Cardiovascular: Denies chest pain, Denies leg edema, Reports dyspnea and Denies dyspnea on exertion Respiratory: Respiratory: Denies cough, Reports dyspnea and Denies dyspnea on exertion Gastrointestinal: Gastrointestinal: Reports abdominal pain, Denies change in bowel habits, Denies dysphagia and Denies heartburn Genitourinary: Genitourinary: Denies dysuria Musculoskeletal: Musculoskeletal: Denies back pain and Reports arthralgias Integumentary/Breasts: Skin/Breast: Denies pruritus, Denies rash and Denies jaundice Neurologic: Reports Normal hearing present, Denies dizziness, Denies headache(s), Denies focal weakness and Denies convulsions Psychiatric: Psychiatric: Denies anxiety, Reports depression and Denies panic attacks Endocrine: Endocrine: Denies cold intolerance, Denies flushing and Denies heat intolerance PMFSH Past Medical History Medical History Alcohol abuse Anxiety Asthma Diverticulosis GERD (gastroesophageal reflux disease) Hyperlipidemia Hypertension BRI (obstructive sleep apnea) Suicidal ideation Functional capacity: independent ambulation Family History Family history: reviewed and not pertinent Surgical History Surgical History History of laparoscopic cholecystectomy Social History Social History Household Members: Significant Other Housing: Apartment Alcohol intake: current Alcohol intake frequency: a few times a month Smoking Status: Former smoker service: No Current occupational status: disabled Meds Allergies Allergy/AdvReac Type Severity Reaction Status Date / Time olanzapine [From ZYPREXA] Allergy Unknown UNKNOWN Verified 07/04/20 11:28 mirtazapine [From REMERON] AdvReac Unknown PAIN IN Verified 07/04/20 11:28 LEGS sertraline [From ZOLOFT] AdvReac Unknown ANXIETY Verified 07/04/20 11:28 Home Medications Medication Instructions Recorded Confirmed Type albuterol sulfate [Ventolin HFA] 2 puff INHALATION Q4H PRN 06/22/20 07/04/20 History budesonide-formoterol [Symbicort] 2 puff INHALATION BID 06/22/20 07/04/20 Hi story clonazepam 2 mg PO BEDTIME 06/22/20 07/04/20 History dorzolamide-timolol [Cosopt] 1 drp OPHTHALMIC (EYE) BID 06/22/20 07/04/20 History duloxetine [Cymbalta] 60 mg PO DAILY 06/22/20 07/04/20 History glimepiride 1 mg PO DAILY 06/22/20 07/04/20 History ketoconazole 1 appl TOPICAL 2XW PRN 06/22/20 07/04/20 History loratadine 10 mg PO DAILY PRN 06/22/20 07/04/20 History montelukast [Singulair] 10 mg PO BEDTIME 06/22/20 07/04/20 History naltrexone 50 mg PO DAILY 06/22/20 07/04/20 History omeprazole 20 mg PO BID 06/22/20 07/04/20 History tamsulosin [Flomax] 0.4 mg PO BEDTIME 06/22/20 07/04/20 History verapamil 100 mg PO BEDTIME 06/22/20 07/04/20 History aripiprazole 2 mg PO DAILY 06/26/20 07/04/20 History aspirin 81 mg PO DAILY 06/26/20 07/04/20 History metformin 500 mg PO BID 06/26/20 07/04/20 History rosuvastatin 40 mg PO DAILY 06/26/20 07/04/20 History Physical Exam Vital Signs: Vital Signs: Last Vital Signs Temp 98.1 F 06/23/20 11:16 Pulse 68 06/23/20 11:16 Resp 17 06/23/20 11:16 BP 142/79 H 06/23/20 11:16 Pulse Ox 96 06/23/20 11:16 Body Mass Index 36.6 Const: General: no acute distress Nutritional Appearance: obese Orientation/consciousness: patient oriented x3 Limitations: no limitations HENMT: Head: Yes normal to inspection Ears: hearing grossly normal bilaterally Mouth: Normal oral and palatal mucosa present Eyes: Sclerae: sclerae normal Pupils: Equal, round and reactive pupils present Neck: Neck: Yes normal visual inspection Chest: Chest palpation & inspection: normal inspection of the chest Resp: Effort & Inspection: normal respiratory effort Auscultation: clear to auscultation bilaterally Cardio: Palpation: normal PMI Rate: regular rate Rhythm: regular rhythm Heart sounds: S1 normal heart sound present, S2 normal heart sound present and no murmurs GI: Inspection: Yes normal to inspection and Yes obesity Palpation (GI): Soft to palpation, nontender and No hepatosplenomegaly present Auscultation: normal bowel sounds Rectal Exam - Male: Yes deferred Skin: General skin exam: no rashes or lesions noted Neuro: General: patient oriented x3, gait normal and moves all extremities Cranial nerves: Yes Equal, round and reactive pupils present and Yes Normal hearing present Psych: Appearance: grossly normal Mental Status: mental status grossly normal Results Labs CBC & Chem 7: 06/25/20 09:52 06/23/20 06:05 Labs: BMP 06/23/20 06:05 Sodium 139 Potassium 3.8 Chloride 104 Carbon Dioxide 24 BUN 11 Creatinine 0.87 Calcium 9.0 Liver Function 06/23/20 Range/Units 06:05 Total Bilirubin 2.6 H (0.0-1.0) mg/dL Direct Bilirubin 1.7 H (0.0-0.5) mg/dL AST 386 H (5-37) U/L ALT 528 H (0-40) U/L Alkaline Phosphatase 185 H (39-117) U/L Albumin 4.5 (3.5-5.0) g/dL Urine 06/22/20 Range/Units 22:37 Urine Color YELLOW Urine Appearance CLEAR Urine pH 6.5 (5.0-8.0) Ur Specific [place] 1.020 (1.005-1.025) Urine Protein NEG (NEG-TRACE) MG/DL Urine Glucose (UA) NEG (NEG) MG/DL Microbiology Microbiology Results: Microbiology 06/22/20 07:52 Blood - Venous Blood Culture - Preliminary No growth after 24 hours. 06/22/20 07:40 Blood - Venous Blood Culture - Preliminary No growth after 24 hours. Assessment and Plan (1) Abdominal pain: Qualifiers: Abdominal location: unspecified location Qualified Code(s): R10.9 - Unspecified abdominal pain Status: Resolved (2) LFT elevation: Status: Acute (3) Gallstones: Status: Resolved 55 Jordanian-speaking male admitted with history of sudden onset generalized abdominal pain, elevated LFTs and gallstones on imaging studies without obvious biliary ductal dilation. His symptoms are suggestive of a biliary source of abd pain - likely due to passage of small stone or sludge into the bile duct. (CBD dilation may not be seen in early imaging studies) Acute viral hepatitis is less likely. RECOMMENDATIONS: 1. Monitor LFTs daily. 2. MRCP to rule out CBD stone or sludge. 3. Await results of hepatitis serologies. 4. If pt develops fever or chills, he can be started on IV antibiotics.
--- NOTE | 2020-06-23 13:45 | HO.PM.IMPN ---
Subjective Subjective Date of Service: 06/23/20 Interval History: Seen in f/u for abdominal pain and elevatd LFTs which seem worse today, and abdominal pain is better Constitutional Constitutional: Denies fever(s) Gastrointestinal Gastrointestinal: Reports abdominal pain, Denies diarrhea, Denies nausea and Denies vomiting Physical Exam Vital Signs: Vital Signs: Last Vital Signs Temp 98.1 F 06/23/20 11:16 Pulse 68 06/23/20 11:16 Resp 17 06/23/20 11:16 BP 142/79 H 06/23/20 11:16 Pulse Ox 96 06/23/20 11:16 Body Mass Index 36.6 Const: Nutritional Appearance: well nourished Orientation/consciousness: patient oriented x3 Eyes: Sclerae: sclerae normal Resp: Effort & Inspection: normal respiratory effort and no respiratory distress Auscultation: clear to auscultation bilaterally Cardio: Rate: regular rate Rhythm: regular rhythm GI: Palpation (GI): Soft to palpation and nontender Skin: General skin exam: no rashes or lesions noted Neuro: General: patient oriented x3 Objective Data Current Medications Generic Name Dose Route Start Last Admin Trade Name Freq PRN Reason Stop Dose Admin Clonazepam 1 mg 06/23/20 02:10 06/23/20 02:28 Clonazepam 1 Mg Tablet PO 1 mg BEDTIME HUMBERTO Administration Docusate Sodium 100 mg 06/22/20 15:13 Docusate Sodium 100 Mg Capsule PO DAILY PRN Constipation Dorzolamide/Timolol 1 drop 06/23/20 09:00 06/23/20 09:45 Dorzolamide/Timolo 2.23%/0.68% 10 Ml Drbtl EYE-BOTH 1 drop BID HUMBERTO Administration Duloxetine HCl 60 mg 06/23/20 09:00 06/23/20 09:45 Duloxetine Hcl 60 Mg Capsule.Dr PO 60 mg DAILY HUMBERTO Administration Enoxaparin Sodium 40 mg 06/22/20 15:15 06/22/20 18:45 Enoxaparin Sodium 40 Mg/0.4 Ml Syringe SUBCUT 40 mg Q24H HUMBERTO Administration Fluticasone/Vilanterol 1 puff 06/23/20 09:00 06/23/20 09:45 Fluticasone/Vilanterol 100/25 Blst.W.Dev INHALE 1 puff DAILY HUMBERTO Administration Montelukast Sodium 10 mg 06/23/20 21:00 Montelukast Sodium 10 Mg Tablet PO BEDTIME HUMBERTO Naltrexone HCl 50 mg 06/23/20 09:00 06/23/20 09:45 Naltrexone Hcl 50 Mg Tablet PO 50 mg DAILY HUMBERTO Administration Ondansetron HCl 4 mg 06/22/20 15:13 Ondansetron Hcl 4 Mg/2 Ml Vial IVPUSH Q8H PRN Nausea and Vomiting Pharmacy Consult 1 each 06/22/20 15:08 Consult Rx Perform Med Rec MISCELLANE ONCE PRN Consult order Sodium Chloride 3 ml 06/22/20 16:00 06/23/20 09:45 0.9 % Sodium Chloride Flush 3 Ml Syringe IVFLUSH 3 ml QSHIFT HUMBERTO Administration Tamsulosin HCl 0.4 mg 06/23/20 21:00 Tamsulosin Hcl 0.4 Mg Capsule PO BEDTIME HUMBERTO Verapamil HCl 100 mg 06/23/20 21:00 Verapamil Hcl Sr 100 Mg Cap24h.Pct PO BEDTIME [facility] Protocol Labs CBC & Chem 7: 06/22/20 07:40 06/23/20 06:05 Microbiology Microbiology Results: Microbiology 06/22/20 07:52 Blood - Venous Blood Culture - Preliminary No growth after 24 hours. 06/22/20 07:40 Blood - Venous Blood Culture - Preliminary No growth after 24 hours. Quality VTE Deep Vein Thrombosis/Pulmonary Embolism Present on Admission: No Assessment and Plan (1) LFT elevation: Problem details: No acute ABD pain. ABD soft, non, tender, no guarding. VSS. Tbili and ALT continue to elevate suggesting liver pathology. AST improving. Status: Acute Assessment and Plan: 55-year-old male with history of BRI, hypertension, dyslipidemia, anxiety, depression, asthma presents to the emergency department with abdominal pain found to have elevated LFTs Abdominal pain Resolved Elevated LFTs are worse, INR is within normal. Gallstone seen on imaging but no obstruction evaluated by surgery who feels elevated LFTs are secondary to parenchymal disease Diffuse Fatty infiltration noted. Also reports alcohol use every weekend up to 5 beers Tylenol level is within normal Hepatitis panel pending -trend LFTs -clear liquid diet, advance as tolerated -Seen by surgery and they are defering to GI, therefore GI consult BRI CPAP DVT prophylaxis-Lovenox Code status-full code This case was discussed with Dr. Rivera
[2020-06-23] MEDS: Enoxaparin Sodium 40 MG/0.4 ML SYRINGE SUBCUT (15:47)
--- NOTE | 2020-06-23 17:39 | PC.NURSE ---
Report called to [facility]. Nurse will call back for report on patient.
[2020-06-23 20:43] LABS: Glucose, Whole Blood 100 mg/dL (60-115)
[2020-06-23] MEDS: Tamsulosin HCL 0.4 MG CAPSULE PO (21:31)
[2020-06-23] MEDS: Montelukast Sodium 10 MG TABLET PO (21:31)
[2020-06-24] VITALS (8 sets, daily range): BP systolic 113–148; BP diastolic 73–96; PULSE 61–85; RESP 15–18; TEMP 36–36.9; O2SAT 94–97
[2020-06-24 08:40] LABS: Glucose, Whole Blood 107 mg/dL (60-115)
--- NOTE | 2020-06-24 09:01 | MHC.CM.PN ---
Addendum entered by Yesenia Medley 06/24/20 09:09: WITH ASSIST OF QUALITY CONTROL TESTER, PATIENT STATES THAT HE HAS NO FURTHER QUESTIONS. HE DOES TELL THIS AUT[employer]ICE C[employer] THAT HE DOES NOT DRIVE PROVIDES TRANSPORTATION WHERE NEEDED. Original Note: PATIENT LIVES WITH HIS /HCP (COPY NOW IN CHART) HILARIO MCCARTHY [phone] HE IS INDEPENDENT WITH HIS ADLS. NO DME OR VNA SERVICES. DISCHARGE PLAN TO BE DETERMINED CASE MANAGEMENT CURRENTLY AWAITING QUALITY CONTROL TESTER SERVICES
--- NOTE | 2020-06-24 09:15 | MHC.CM.PN ---
PATIENT STATES THAT HIS PCP IS AT THE [facility] LOCATION. UPDATE SENT TO CM OFFICE VIA [employer].
[2020-06-24] MEDS: 0.9 % Sodium Chloride Flush 3 ML SYRINGE IVFLUSH ×3 (09:18→23:23)
[2020-06-24] MEDS: DULoxetine HCl 60 MG CAPSULE.DR PO (09:18)
[2020-06-24] MEDS: Naltrexone HCl 50 MG TABLET PO (09:18)
[2020-06-24] MEDS: Dorzolamide/Timolo 2.23%/0.68% 10 ML DRBTL 1 DROP EYE-BOTH ×2 (09:18→19:47)
[2020-06-24] MEDS: Fluticasone/Vilanterol 100/25 BLST.W.DEV 1 PUFF INHALE (10:10)
--- NOTE | 2020-06-24 11:34 | HO.PM.IMPN ---
Subjective Subjective Date of Service: 06/24/20 Interval History: Seen in f/u for abdominal pain and elevatd LFTs which seem worse today, and abdominal pain is better Constitutional Constitutional: Denies fever(s) Gastrointestinal Gastrointestinal: Reports abdominal pain, Denies diarrhea, Denies nausea and Denies vomiting Physical Exam Vital Signs: Vital Signs: Last Vital Signs Temp 97.3 F 06/24/20 08:00 Pulse 85 06/24/20 08:00 Resp 16 06/24/20 07:28 BP 140/90 H 06/24/20 08:00 Pulse Ox 97 06/24/20 08:00 Body Mass Index 36.6 Const: Nutritional Appearance: well nourished Orientation/consciousness: patient oriented x3 Eyes: Sclerae: sclerae normal Resp: Effort & Inspection: normal respiratory effort and no respiratory distress Auscultation: clear to auscultation bilaterally Cardio: Rate: regular rate Rhythm: regular rhythm GI: Palpation (GI): Soft to palpation and nontender Skin: General skin exam: no rashes or lesions noted Neuro: General: patient oriented x3 Objective Data Current Medications Generic Name Dose Route Start Last Admin Trade Name Freq PRN Reason Stop Dose Admin Clonazepam 1 mg 06/23/20 02:10 06/23/20 21:31 Clonazepam 1 Mg Tablet PO 1 mg BEDTIME HUMBERTO Administration Docusate Sodium 100 mg 06/22/20 15:13 Docusate Sodium 100 Mg Capsule PO DAILY PRN Constipation Dorzolamide/Timolol 1 drop 06/23/20 09:00 06/24/20 09:18 Dorzolamide/Timolo 2.23%/0.68% 10 Ml Drbtl EYE-BOTH 1 drop BID HUMBERTO Administration Duloxetine HCl 60 mg 06/23/20 09:00 06/24/20 09:18 Duloxetine Hcl 60 Mg Capsule.Dr PO 60 mg DAILY HUMBERTO Administration Enoxaparin Sodium 40 mg 06/22/20 15:15 06/23/20 15:47 Enoxaparin Sodium 40 Mg/0.4 Ml Syringe SUBCUT 40 mg Q24H HUMBERTO Administration Fluticasone/Vilanterol 1 puff 06/23/20 09:00 06/24/20 10:10 Fluticasone/Vilanterol 100/25 Blst.W.Dev INHALE 1 puff DAILY HUMBERTO Administration Montelukast Sodium 10 mg 06/23/20 21:00 06/23/20 21:31 Montelukast Sodium 10 Mg Tablet PO 10 mg BEDTIME HUMBERTO Administration Naltrexone HCl 50 mg 06/23/20 09:00 06/24/20 09:18 Naltrexone Hcl 50 Mg Tablet PO 50 mg DAILY HUMBERTO Administration Ondansetron HCl 4 mg 06/22/20 15:13 Ondansetron Hcl 4 Mg/2 Ml Vial IVPUSH Q8H PRN Nausea and Vomiting Pharmacy Consult 1 each 06/22/20 15:08 Consult Rx Perform Med Rec MISCELLANE ONCE PRN Consult order Sodium Chloride 3 ml 06/22/20 16:00 06/24/20 09:18 0.9 % Sodium Chloride Flush 3 Ml Syringe IVFLUSH 3 ml QSHIFT HUMBERTO Administration Tamsulosin HCl 0.4 mg 06/23/20 21:00 06/23/20 21:31 Tamsulosin Hcl 0.4 Mg Capsule PO 0.4 mg BEDTIME HUMBERTO Administration Verapamil HCl 100 mg 06/23/20 21:00 06/23/20 21:31 Verapamil Hcl Sr 100 Mg Cap24h.Pct PO 100 mg BEDTIME HUMBERTO Administration Protocol Labs CBC & Chem 7: 06/22/20 07:40 06/23/20 06:05 Microbiology Microbiology Results: Microbiology 06/22/20 07:52 Blood - Venous Blood Culture - Preliminary No growth after 48 hours. 06/22/20 07:40 Blood - Venous Blood Culture - Preliminary No growth after 48 hours. Quality VTE Deep Vein Thrombosis/Pulmonary Embolism Present on Admission: No Assessment and Plan (1) LFT elevation: Status: Acute Assessment and Plan: 55-year-old male with history of BRI, hypertension, dyslipidemia, anxiety, depression, asthma presents to the emergency department with abdominal pain found to have elevated LFTs Abdominal pain Resolved Elevated LFTs are worse, INR is within normal. Gallstone seen on imaging but no obstruction evaluated by surgery who feels elevated LFTs are secondary to parenchymal disease Diffuse Fatty infiltration noted. Also reports alcohol use every weekend up to 5 beers Tylenol level is within normal Hepatitis panel pending -trend LFTs -clear liquid diet, advance as tolerated -GI recommend MRCP cannot be done till thursday -repeat LFTS BRI CPAP DVT prophylaxis-Lovenox Code status-full code This case was discussed with Dr. Rivera
[2020-06-24 13:21] LABS: Alanine Aminotransferase 338 U/L (0-40); Albumin Level 4.8 g/dL (3.5-5.0); Alkaline Phosphatase 165 U/L (39-117); Aspartate Amino Transferase 108 U/L (5-37); Bilirubin Direct 0.6 mg/dL (0.0-0.5); Bilirubin Total 1.2 mg/dL (0.0-1.0)
--- NOTE | 2020-06-24 14:47 | PM.PNGS ---
Subjective Subjective Date of Service: 06/24/20 Interval history: Patient without complaints. No abdominal complaint. Physical Exam Vital Signs: Vital Signs: Last Vital Signs Temp 96.8 F 06/24/20 12:00 Pulse 69 06/24/20 12:00 Resp 18 06/24/20 12:00 BP 147/96 H 06/24/20 12:00 Pulse Ox 97 06/24/20 12:00 Body Mass Index 36.6 GI: Inspection: Yes normal to inspection Palpation (GI): No hepatosplenomegaly present and Other GI palpation findings present (No tenderness on all four quadrants. RUQ without mass or tenderness.) Percussion: Yes tympanic to percussion Auscultation: normal bowel sounds Progress Note: A&P Assessment and plan (1) Abdominal pain: Status: Acute Assessment and Plan: Patient continues to show no signs of surgical condition on exam. GI has seen the patient and has recommended MRCP. Fall Risk Details Current Medications: Current Medications Generic Name Dose Route Start Last Admin Trade Name Freq PRN Reason Stop Dose Admin Clonazepam 1 mg 06/23/20 02:10 06/23/20 21:31 Clonazepam 1 Mg Tablet PO 1 mg BEDTIME HUMBERTO Administration Docusate Sodium 100 mg 06/22/20 15:13 Docusate Sodium 100 Mg Capsule PO DAILY PRN Constipation Dorzolamide/Timolol 1 drop 06/23/20 09:00 06/24/20 09:18 Dorzolamide/Timolo 2.23%/0.68% 10 Ml Drbtl EYE-BOTH 1 drop BID HUMBERTO Administration Duloxetine HCl 60 mg 06/23/20 09:00 06/24/20 09:18 Duloxetine Hcl 60 Mg Capsule.Dr PO 60 mg DAILY HUMBERTO Administration Enoxaparin Sodium 40 mg 06/22/20 15:15 06/23/20 15:47 Enoxaparin Sodium 40 Mg/0.4 Ml Syringe SUBCUT 40 mg Q24H HUMBERTO Administration Fluticasone/Vilanterol 1 puff 06/23/20 09:00 06/24/20 10:10 Fluticasone/Vilanterol 100/25 Blst.W.Dev INHALE 1 puff DAILY HUMBERTO Administration Montelukast Sodium 10 mg 06/23/20 21:00 06/23/20 21:31 Montelukast Sodium 10 Mg Tablet PO 10 mg BEDTIME HUMBERTO Administration Naltrexone HCl 50 mg 06/23/20 09:00 06/24/20 09:18 Naltrexone Hcl 50 Mg Tablet PO 50 mg DAILY HUMBERTO Administration Ondansetron HCl 4 mg 06/22/20 15:13 Ondansetron Hcl 4 Mg/2 Ml Vial IVPUSH Q8H PRN Nausea and Vomiting Pharmacy Consult 1 each 06/22/20 15:08 Consult Rx Perform Med Rec MISCELLANE ONCE PRN Consult order Sodium Chloride 3 ml 06/22/20 16:00 06/24/20 09:18 0.9 % Sodium Chloride Flush 3 Ml Syringe IVFLUSH 3 ml QSHIFT HUMBERTO Administration Tamsulosin HCl 0.4 mg 06/23/20 21:00 06/23/20 21:31 Tamsulosin Hcl 0.4 Mg Capsule PO 0.4 mg BEDTIME HUMBERTO Administration Verapamil HCl 100 mg 06/23/20 21:00 06/23/20 21:31 Verapamil Hcl Sr 100 Mg Cap24h.Pct PO 100 mg BEDTIME HUMBERTO Administration Protocol Time Spent With Patient Time: Total time spent is greater than 50% in coordination of care (as documented) at patient's floor/unit and/or counseling patient: Time with patient: less than 15 minutes Progress Note: Quality VTE Deep Vein Thrombosis/Pulmonary Embolism Present on Admission: No
[2020-06-24] MEDS: Enoxaparin Sodium 40 MG/0.4 ML SYRINGE SUBCUT (15:37)
[2020-06-24 16:28] LABS: Glucose, Whole Blood 110 mg/dL (60-115)
[2020-06-24] MEDS: Montelukast Sodium 10 MG TABLET PO (19:47)
[2020-06-24] MEDS: clonazePAM 1 MG TABLET PO (19:47)
[2020-06-24] MEDS: Tamsulosin HCL 0.4 MG CAPSULE PO (19:47)
[2020-06-24 20:59] LABS: Glucose, Whole Blood 125 mg/dL (60-115)
--- NOTE | 2020-06-25 | MR_ITS ---
EXAMINATION: MR ABDOMEN WITHOUT CONTRAST CLINICAL INFORMATION: Abdominal pain. Gallstones and elevated liver function tests. Evaluate for common bile duct stone. COMPARISON: Previous CT of the abdomen and pelvis and abdominal ultrasound 06/22/2019 TECHNIQUE: MR abdomen is performed without gadolinium contrast. MRCP sequences were also performed. FINDINGS: LUNG BASES: The visualized lung bases are unremarkable. LIVER, GALLBLADDER, AND BILIARY TREE: The liver is normal in size, smooth in contour, and normal in signal. No focal hepatic lesion. There is a large gallstone seen in the neck of the gallbladder. This measures 1.1 x 1.6 cm. The gallbladder is upper normal in size measuring 4 x 4.5 x 9.5 cm in dimension. There is a normal variant or phrygian cap. The gallbladder wall is slightly thickened measuring 5 mm and there is a question of mild increased signal in the gallbladder wall or gallbladder wall edema. There is no intra or extrahepatic biliary duct dilatation. No common bile duct stone is seen. PANCREAS: Unremarkable. The main pancreatic duct is normal. SPLEEN: Unremarkable. ADRENAL GLANDS: Unremarkable. KIDNEYS AND URETERS: The kidneys are normal in size and shape. There is a 2.2 cm cyst in the upper pole of the left kidney. No hydronephrosis. No perinephric stranding. GASTROINTESTINAL TRACT: No bowel obstruction. No ascites or fluid collection. ABDOMINAL WALL: No significant hernia is appreciated. LYMPH NODES: No lymphadenopathy. VASCULAR: Unremarkable. OSSEOUS STRUCTURES: Marrow signal normal. MR/MR MRCP IMPRESSION: Large gallstone in the neck of the gallbladder. Upper normal-size gallbladder. Mild gallbladder wall thickening and edema. Findings are questionable for acute cholecystitis. Normal caliber intrahepatic and extrahepatic bile ducts. No evidence of common bile duct stone. Left renal cyst.
[2020-06-25 03:58] VITALS: BP 139/86; PULSE 77; RESP 18; TEMP 36.5; O2SAT 96
[2020-06-25 04:07] LABS: HBS Num1 0.59 mIU/mL (0-7.99); HBc Num1 0.08 S/CO (0.00-0.79); Hepatitis B Core Antibody Nonreactive (Nonreactive); ~HepC Num1 0.09 S/CO (0.00-0.79); ~Hepatitis B Surface Antibody NONREACTIVE (Nonreactive); ~Hepatitis C Antibody Nonreactive (Nonreactive)
[2020-06-25 04:21] LABS: Hepatitis B Surface Antigen Negative (Negative)
[2020-06-25 07:32] VITALS: BP 122/86; PULSE 72; RESP 18; TEMP 36.8; O2SAT 94
[2020-06-25] MEDS: Fluticasone/Vilanterol 100/25 BLST.W.DEV 1 PUFF INHALE (07:49)
[2020-06-25 07:53] VITALS: PULSE 79; O2SAT 97
[2020-06-25] MEDS: Dorzolamide/Timolo 2.23%/0.68% 10 ML DRBTL 1 DROP EYE-BOTH (08:08)
[2020-06-25] MEDS: 0.9 % Sodium Chloride Flush 3 ML SYRINGE IVFLUSH (08:09)
--- NOTE | 2020-06-25 09:07 | PM.DS ---
DS: Providers Provider Date of Service: 07/16/20 Date of admission: 06/22/20 15:13 Primary care physician: Unknown Physician Consults: 06/23/20 12:45 Consult to Gastroenterology Routine Consulting Provider: [facility] Reason for consultation: Elevated EFT's. Has provider been notified: No 06/25/20 08:43 Consult to General Surgery Routine Consulting Provider: Kit Ackerman Reason for consultation: abdominal pain Has provider been notified: Yes DS: Diagnosis Discharge Diagnosis (1) Abdominal pain: Status: Resolved DS: Medications Discharge Medications Home Medications: Home Medications Medication Instructions Recorded Confirmed albuterol sulfate [Ventolin HFA] 2 puff INHALATION Q4H PRN 06/22/20 06/22/20 budesonide-formoterol [Symbicort] 2 puff INHALATION BID 06/22/20 06/22/20 clonazepam 2 mg PO BEDTIME 06/22/20 06/22/20 dorzolamide-timolol [Cosopt] 1 drp OPHTHALMIC (EYE) BID 06/22/20 06/22/20 duloxetine [Cymbalta] 60 mg PO DAILY 06/22/20 06/22/20 glimepiride 1 mg PO DAILY 06/22/20 06/22/20 ketoconazole 1 appl TOPICAL 2XW PRN 06/22/20 06/22/20 loratadine 10 mg PO DAILY PRN 06/22/20 06/22/20 montelukast [Singulair] 10 mg PO BEDTIME 06/22/20 06/22/20 naltrexone 50 mg PO DAILY 06/22/20 06/22/20 omeprazole [Prilosec] 20 mg PO BID 06/22/20 06/22/20 rosuvastatin 40 mg PO DAILY 06/22/20 06/22/20 tamsulosin [Flomax] 0.4 mg PO BEDTIME 06/22/20 06/22/20 verapamil 100 mg PO BEDTIME 06/22/20 06/22/20 DS: Summary Hospital Course Hospital Course: HPI:This is a 55-year-old Czech-speaking male who presents to the emergency department with abdominal pain. He reports this pain began last evening around 23:00 after eating Cream of [employer]. His pain was persistent and not localized to 1 specific area. He denies any associated nausea, vomiting, diarrhea, fever, chills. In the emergency department he received IV pain medication and his pain resolved. CT scan showed evidence of gallstones but no cholecystitis. He underwent ultrasound which again showed gallstones without cholecystitis as well as ICS fatty infiltration of the liver. LFTs were noted to be elevated. He was evaluated by General surgery who felt this elevation represented parenchymal disease and no urgent surgical intervention was required. Tylenol level was 2. Patient reports using Tylenol once last night otherwise does not use Tylenol on a regular basis. He drinks alcohol on the weekend but not during the week. He denies history of IV drug use or history of blood transfusion. HOspital course: Abdominal pain--Unclear etiology but likely related to inflmae liver and elevated LFTs. Pain has resolved Elevated LFTs etology unclear, Hepatitis B, C negative. Possible related to passed galstone. There are gallstone seen but no obstruction. LFTs peakd and are trending down. AST was 729 on June 22 and is 108 on June 24. Was 352 on June 22, 528 on June 23, and 338 on June 24. Alk phos was 187 on June 22 and now 165. Total bili was 1.1 peaked at 2.6 on June 23 and on June 24 T was 1.2. He likely had biliary coli. Will get surgery to see him for outpatient CCY.GI recommend MRCP which -- Time Spent with Patient Time attestation: Total time spent providing and/or coordinating discharge services: Discharge coordination time: Greater than 30 minutes Quality: VTE Deep Vein Thrombosis/Pulmonary Embolism Present on Admission: No Physical Exam Vital Signs: Vital Signs: Last Vital Signs Temp 98.3 F 06/25/20 07:32 Pulse 72 06/25/20 07:32 Resp 18 06/25/20 07:32 BP 122/86 06/25/20 07:32 Pulse Ox 94 06/25/20 07:32 Body Mass Index 36.6 DS: Data Data Completed and Pending Labs on day of discharge: Laboratory Tests 06/22/20 06/22/20 06/22/20 07:40 07:40 07:40 WBC 10.3 RBC 4.94 Hgb 14.8 Hct 45.4 MCV 91.9 MCH 30.0 MCHC 32.6 RDW 11.9 Plt Count 222 MPV 10.0 Immature Gran % (Auto) 0.4 Neut % (Auto) 66.1 Lymph % (Auto) 29.3 [place] % (Auto) 3.3 Eos % (Auto) 0.6 Baso % (Auto) 0.3 Lymph # (Auto) 3.0 [place] # (Auto) 0.3 Eos # (Auto) 0.1 Baso # (Auto) 0.0 Abs Immat Gran (auto) 0.04 H Absolute Neuts (auto) 6.8 Absolute Nucleated RBC 0.000 Nucleated RBC % (auto) 0.0 PT INR Sodium 139 Potassium 4.5 Chloride 103 Carbon Dioxide 26 Anion Gap 15 BUN 14 Creatinine 1.07 Estim Creat Clear Calc 85.6 Estimated GFR > 60 POC Glucose Random Glucose 166 H Lactic Acid 1.6 Calcium 9.2 Total Bilirubin 1.1 H Direct Bilirubin 0.8 H AST 729 H ALT 352 H Alkaline Phosphatase 187 H Total Protein 7.3 Albumin 4.4 Lipase 32 Urine Color Urine Appearance Urine pH Ur Specific [place] Urine Protein Urine Glucose (UA) Urine Ketones Urine Blood Urine Nitrite Ur Leukocyte Esterase Urine Opiates Screen Acetaminophen Ur Barbiturates Screen Ur Phencyclidine Scrn Ur Amphetamines Screen U Benzodiazepines Scrn Urine Cocaine Screen U Marijuana (THC) Screen Ethyl Alcohol COVID-19 (ALISHA) COVID-19 Clin Com Hep Bs Antigen Hep Bs Antibody Hep B Core Total Ab Hepatitis C Ab (EIA) 06/22/20 06/22/20 06/22/20 07:40 08:19 13:51 WBC RBC Hgb Hct MCV MCH MCHC RDW Plt Count MPV Immature Gran % (Auto) Neut % (Auto) Lymph % (Auto) [place] % (Auto) Eos % (Auto) Baso % (Auto) Lymph # (Auto) [place] # (Auto) Eos # (Auto) Baso # (Auto) Abs Immat Gran (auto) Absolute Neuts (auto) Absolute Nucleated RBC Nucleated RBC % (auto) PT INR Sodium Potassium Chloride Carbon Dioxide Anion Gap BUN Creatinine Estim Creat Clear Calc Estimated GFR POC Glucose Random Glucose Lactic Acid Calcium Total Bilirubin Direct Bilirubin AST ALT Alkaline Phosphatase Total Protein Albumin Lipase Urine Color Urine Appearance Urine pH Ur Specific [place] Urine Protein Urine Glucose (UA) Urine Ketones Urine Blood Urine Nitrite Ur Leukocyte Esterase Urine Opiates Screen Acetaminophen Ur Barbiturates Screen Ur Phencyclidine Scrn Ur Amphetamines Screen U Benzodiazepines Scrn Urine Cocaine Screen U Marijuana (THC) Screen Ethyl Alcohol < 10 COVID-19 (ALISHA) Negative COVID-19 Clin Com See Note Hep Bs Antigen Negative Hep Bs Antibody NONREACTIVE Hep B Core Total Ab Nonreactive Hepatitis C Ab (EIA) Nonreactive 06/22/20 06/22/20 06/22/20 13:51 21:29 22:37 WBC RBC Hgb Hct MCV MCH MCHC RDW Plt Count MPV Immature Gran % (Auto) Neut % (Auto) Lymph % (Auto) [place] % (Auto) Eos % (Auto) Baso % (Auto) Lymph # (Auto) [place] # (Auto) Eos # (Auto) Baso # (Auto) Abs Immat Gran (auto) Absolute Neuts (auto) Absolute Nucleated RBC Nucleated RBC % (auto) PT 13.2 H INR 1.1 Sodium Potassium Chloride Carbon Dioxide Anion Gap BUN Creatinine Estim Creat Clear Calc Estimated GFR POC Glucose Random Glucose Lactic Acid Calcium Total Bilirubin Direct Bilirubin AST ALT Alkaline Phosphatase Total Protein Albumin Lipase Urine Color YELLOW Urine Appearance CLEAR Urine pH 6.5 Ur Specific [place] 1.020 Urine Protein NEG Urine Glucose (UA) NEG Urine Ketones NEG Urine Blood NEG Urine Nitrite NEG Ur Leukocyte Esterase NEG Urine Opiates Screen Acetaminophen 2 Ur Barbiturates Screen Ur Phencyclidine Scrn Ur Amphetamines Screen U Benzodiazepines Scrn Urine Cocaine Screen U Marijuana (THC) Screen Ethyl Alcohol COVID-19 (ALISHA) COVID-19 Clin Com Hep Bs Antigen Hep Bs Antibody Hep B Core Total Ab Hepatitis C Ab (EIA) 06/22/20 06/23/20 06/23/20 22:37 06:05 20:34 WBC RBC Hgb Hct MCV MCH MCHC RDW Plt Count MPV Immature Gran % (Auto) Neut % (Auto) Lymph % (Auto) [place] % (Auto) Eos % (Auto) Baso % (Auto) Lymph # (Auto) [place] # (Auto) Eos # (Auto) Baso # (Auto) Abs Immat Gran (auto) Absolute Neuts (auto) Absolute Nucleated RBC Nucleated RBC % (auto) PT INR Sodium 139 Potassium 3.8 Chloride 104 Carbon Dioxide 24 Anion Gap 15 BUN 11 Creatinine 0.87 Estim Creat Clear Calc 105.3 Estimated GFR > 60 POC Glucose 100 Random Glucose 110 Lactic Acid Calcium 9.0 Total Bilirubin 2.6 H Direct Bilirubin 1.7 H AST 386 H ALT 528 H Alkaline Phosphatase 185 H Total Protein 7.2 Albumin 4.5 Lipase Urine Color Urine Appearance Urine pH Ur Specific [place] Urine Protein Urine Glucose (UA) Urine Ketones Urine Blood Urine Nitrite Ur Leukocyte Esterase Urine Opiates Screen Not Detected Acetaminophen Ur Barbiturates Screen Not Detected Ur Phencyclidine Scrn Not Detected Ur Amphetamines Screen Not Detected U Benzodiazepines Scrn Not Detected Urine Cocaine Screen Not Detected U Marijuana (THC) Screen Not Detected Ethyl Alcohol COVID-19 (ALISHA) COVID-19 Clin Com Hep Bs Antigen Hep Bs Antibody Hep B Core Total Ab Hepatitis C Ab (EIA) 06/24/20 06/24/20 06/24/20 07:27 12:26 16:24 WBC RBC Hgb Hct MCV MCH MCHC RDW Plt Count MPV Immature Gran % (Auto) Neut % (Auto) Lymph % (Auto) [place] % (Auto) Eos % (Auto) Baso % (Auto) Lymph # (Auto) [place] # (Auto) Eos # (Auto) Baso # (Auto) Abs Immat Gran (auto) Absolute Neuts (auto) Absolute Nucleated RBC Nucleated RBC % (auto) PT INR Sodium Potassium Chloride Carbon Dioxide Anion Gap BUN Creatinine Estim Creat Clear Calc Estimated GFR POC Glucose 107 110 Random Glucose Lactic Acid Calcium Total Bilirubin 1.2 H Direct Bilirubin 0.6 H AST 108 H ALT 338 H Alkaline Phosphatase 165 H Total Protein 8.0 Albumin 4.8 Lipase Urine Color Urine Appearance Urine pH Ur Specific [place] Urine Protein Urine Glucose (UA) Urine Ketones Urine Blood Urine Nitrite Ur Leukocyte Esterase Urine Opiates Screen Acetaminophen Ur Barbiturates Screen Ur Phencyclidine Scrn Ur Amphetamines Screen U Benzodiazepines Scrn Urine Cocaine Screen U Marijuana (THC) Screen Ethyl Alcohol COVID-19 (ALISHA) COVID-19 Clin Com Hep Bs Antigen Hep Bs Antibody Hep B Core Total Ab Hepatitis C Ab (EIA) 06/24/20 20:48 WBC RBC Hgb Hct MCV MCH MCHC RDW Plt Count MPV Immature Gran % (Auto) Neut % (Auto) Lymph % (Auto) [place] % (Auto) Eos % (Auto) Baso % (Auto) Lymph # (Auto) [place] # (Auto) Eos # (Auto) Baso # (Auto) Abs Immat Gran (auto) Absolute Neuts (auto) Absolute Nucleated RBC Nucleated RBC % (auto) PT INR Sodium Potassium Chloride Carbon Dioxide Anion Gap BUN Creatinine Estim Creat Clear Calc Estimated GFR POC Glucose 125 H Random Glucose Lactic Acid Calcium Total Bilirubin Direct Bilirubin AST ALT Alkaline Phosphatase Total Protein Albumin Lipase Urine Color Urine Appearance Urine pH Ur Specific [place] Urine Protein Urine Glucose (UA) Urine Ketones Urine Blood Urine Nitrite Ur Leukocyte Esterase Urine Opiates Screen Acetaminophen Ur Barbiturates Screen Ur Phencyclidine Scrn Ur Amphetamines Screen U Benzodiazepines Scrn Urine Cocaine Screen U Marijuana (THC) Screen Ethyl Alcohol COVID-19 (ALISHA) COVID-19 Clin Com Hep Bs Antigen Hep Bs Antibody Hep B Core Total Ab Hepatitis C Ab (EIA) Preliminary micro results at discharge 06/22/20 07:52 Blood Culture - Preliminary Blood - Venous No growth after 48 hours. 06/22/20 07:40 Blood Culture - Preliminary Blood - Venous No growth after 48 hours. Discharge Plan Discharge Anticipated Discharge Date/Time: 06/25/20 12:52 Patient Disposition: Home, Self-Care Referrals: Physician,Unknown [Primary Care Provider] - Discharge Medications: Continued glimepiride 1 mg Tablet 1 mg PO DAILY RF: 0 tamsulosin [Flomax] 0.4 mg Capsule 0.4 mg PO BEDTIME RF: 0 clonazepam 2 mg Tablet 2 mg PO BEDTIME RF: 0 omeprazole 20 mg Capsule,Delayed Release(Dr/Ec) 20 mg PO BID RF: 0 verapamil 100 mg Capsule, [address] 100 mg PO BEDTIME RF: 0 dorzolamide-timolol [Cosopt] 22.3-6.8 mg/mL Drops 1 drp OPHTHALMIC (EYE) BID RF: 0 montelukast [Singulair] 10 mg Tablet 10 mg PO BEDTIME RF: 0 albuterol sulfate [Ventolin HFA] 90 mcg/actuation Hfa Aerosol Inhaler 2 puff INHALATION Q4H PRN (Reason: Cough) RF: 0 duloxetine [Cymbalta] 60 mg Capsule,Delayed Release(Dr/Ec) 60 mg PO DAILY RF: 0 budesonide-formoterol [Symbicort] 80-4.5 mcg/actuation Hfa Aerosol Inhaler 2 puff INHALATION BID RF: 0 ketoconazole 2 % Shampoo 1 appl TOPICAL 2XW PRN (Reason: ITCHY SCALP) RF: 0 naltrexone 50 mg Tablet 50 mg PO DAILY RF: 0 Hold Instructions: Resume on 07/04/20. Until no longer requiring/taking percocet for pain. loratadine 10 mg Tablet 10 mg PO DAILY PRN (Reason: Allergy Symptoms) RF: 0 Discontinued rosuvastatin 40 mg Tablet 40 mg PO DAILY RF: 0 No Action oxycodone-acetaminophen [Percocet] 5-325 mg tablet 1 tab PO Q4-6H PRN (Reason: pain) Qty: 30 RF: 0 ibuprofen 600 mg tablet 600 mg PO TID PRN (Reason: pain) Qty: 30 RF: 1 metformin 500 mg tablet 500 mg PO BID RF: 0 aspirin 81 mg tablet,delayed release (DR/EC) 81 mg PO DAILY RF: 0 rosuvastatin 40 mg tablet 40 mg PO DAILY RF: 0 aripiprazole 2 mg tablet 2 mg PO DAILY RF: 0 oxycodone-acetaminophen [Percocet] 5-325 mg tablet 1 - 2 tab PO Q4-6H PRN (Reason: pain (scale score 7-10)) Qty: 16 RF: 0 Discharge Orders: Discharge Order (Routine); Ordered 06/25/20 Ordered By: Chris Rivera Diet: advance to usual diet and diabetic diet Activity on Discharge: As tolerated Visit Report Forms: Patient Portal Discharge page Care Plan Goals: Preventing rehospitalization. Health Concerns: Elevated liver enzymes and a gallstone. Plan of Treatment: Follow-up with Dr. Graff is to be evaluated for gallbladder surgery. Follow-up with your primary care doctor within a week. Call for appointment. Stop taking cholesterol medications such as rosuvastatin Discharge Date/Time: 06/25/20 15:10
[2020-06-25 10:18] LABS: Hematocrit 43.5 % (42-52); Hemoglobin 14.3 g/dl (14.0-18.0); Mean Corpuscular HGB Conc 32.9 g/dl (31.0-36.0); Mean Corpuscular Hemoglobin 29.7 pg (27.0-33.0); Mean Corpuscular Volume 90.4 fL (80-98); Mean Platelet Volume 10.2 fL (9.4-12.4); Platelet Count 212 X10*3/uL (160-400); Red Blood Count 4.81 X10*6/uL (4.60-5.80); Red Cell Distribution Width 12.1 % (11.0-16.0)
[2020-06-25 10:21] LABS: INTERNATIONAL NORM RATIO 1.1 (0.9-1.1); Prothrombin Time 12.7 SEC (10.8-13.0)
[2020-06-25 10:44] LABS: Alanine Aminotransferase 228 U/L (0-40); Albumin Level 4.3 g/dL (3.5-5.0); Alkaline Phosphatase 135 U/L (39-117); Aspartate Amino Transferase 52 U/L (5-37); Bilirubin Direct 0.5 mg/dL (0.0-0.5); Total Protein 7.1 g/dL (6.5-8.0)
--- NOTE | 2020-06-25 11:00 | MHC.CM.PN ---
PATIENT WILL DISCHARGE HOME WITH OUTPATIENT GASTRO. FOLLOW UP. TO PROVIDE TRANSPORT HOME. RN AWARE OF PLAN.
[2020-06-25 11:34] VITALS: BP 130/85; PULSE 70; RESP 18; TEMP 36.5; O2SAT 95
--- NOTE | 2020-06-25 13:29 | PM.PNGS ---
Subjective Subjective Date of Service: 06/25/20 Interval history: Denies any abdominal pain Tolerating diet Wants to go home No fever Physical Exam Vital Signs: Vital Signs: Last Vital Signs Temp 97.7 F 06/25/20 11:34 Pulse 70 06/25/20 11:34 Resp 18 06/25/20 11:34 BP 130/85 06/25/20 11:34 Pulse Ox 95 06/25/20 11:34 Body Mass Index 36.6 Const: General: comfortable and no acute distress Eyes: Sclerae: sclerae normal Resp: Effort & Inspection: normal respiratory effort Cardio: Rate: regular rate GI: Other: Protuberant, soft, no guarding, no rebound, tenderness, no Wilkins's sign Progress Note: A&P Assessment and plan (1) LFT elevation: Status: Acute Assessment and Plan: Abnormal LFTs, mostly AST and ALT Uncertain as to the etiology MRCP does not show CBD obstruction Okay to DC home Patient completely asymptomatic Clinical no cholecystitis Okay to follow up in the office as outpatient Fall Risk Details Current Medications: Current Medications Generic Name Dose Route Start Last Admin Trade Name Freq PRN Reason Stop Dose Admin Clonazepam 1 mg 06/23/20 02:10 06/24/20 19:47 Clonazepam 1 Mg Tablet PO 1 mg BEDTIME HUMBERTO Administration Docusate Sodium 100 mg 06/22/20 15:13 Docusate Sodium 100 Mg Capsule PO DAILY PRN Constipation Dorzolamide/Timolol 1 drop 06/23/20 09:00 06/25/20 08:08 Dorzolamide/Timolo 2.23%/0.68% 10 Ml Drbtl EYE-BOTH 1 drop BID HUMBERTO Administration Duloxetine HCl 60 mg 06/23/20 09:00 06/25/20 11:25 Duloxetine Hcl 60 Mg Capsule.Dr PO Not Given DAILY HUMBERTO Enoxaparin Sodium 40 mg 06/22/20 15:15 06/24/20 15:37 Enoxaparin Sodium 40 Mg/0.4 Ml Syringe SUBCUT 40 mg Q24H HUMBERTO Administration Fluticasone/Vilanterol 1 puff 06/23/20 09:00 06/25/20 07:49 Fluticasone/Vilanterol 100/25 Blst.W.Dev INHALE 1 puff DAILY HUMBERTO Administration Montelukast Sodium 10 mg 06/23/20 21:00 06/24/20 19:47 Montelukast Sodium 10 Mg Tablet PO 10 mg BEDTIME HUMBERTO Administration Naltrexone HCl 50 mg 06/23/20 09:00 06/25/20 11:25 Naltrexone Hcl 50 Mg Tablet PO Not Given DAILY HUMBERTO Ondansetron HCl 4 mg 06/22/20 15:13 Ondansetron Hcl 4 Mg/2 Ml Vial IVPUSH Q8H PRN Nausea and Vomiting Pharmacy Consult 1 each 06/22/20 15:08 Consult Rx Perform Med Rec MISCELLANE ONCE PRN Consult order Sodium Chloride 3 ml 06/22/20 16:00 06/25/20 08:09 0.9 % Sodium Chloride Flush 3 Ml Syringe IVFLUSH 3 ml QSHIFT HUMBERTO Administration Tamsulosin HCl 0.4 mg 06/23/20 21:00 06/24/20 19:47 Tamsulosin Hcl 0.4 Mg Capsule PO 0.4 mg BEDTIME HUMBERTO Administration Verapamil HCl 100 mg 06/23/20 21:00 06/24/20 19:46 Verapamil Hcl Sr 100 Mg Cap24h.Pct PO 100 mg BEDTIME HUMBERTO Administration Protocol Time Spent With Patient Time: Total time spent is greater than 50% in coordination of care (as documented) at patient's floor/unit and/or counseling patient: Time with patient: 15 - 24 minutes Progress Note: Quality VTE Deep Vein Thrombosis/Pulmonary Embolism Present on Admission: No
--- NOTE | 2020-06-25 14:42 | PC.NURSE ---
discharge instructions go over with girlfriend on phone. Pt okay with this. Awaiting mechanic recovery to give patient instructions.
[2020-06-27 07:32] LABS: HBsAGNum1 0.23 S/CO (0.00-0.99)
[2020-06-27 09:39] LABS: Hepatitis A Antibody IgM 0.45 Index (0-0.79); ~Hepatitis A Antibody IgM Nonreactive (Nonreactive)
== END 2020-06-25 15:10 | disposition home or self-care (01) | DRG 446 ==
LOC: HO.ED 13:50 → HO.S3 06-23 17:18
PROVIDERS: Physician Assistant Medical; Admitting Provider Internal Medicine; Emergency Provider Emergency Medicine; Visit Provider Internal Medicine
DX: K80.80 Other cholelithiasis without obstruction (principal); F41.9 Anxiety disorder, unspecified; K21.9 Gastro-esophageal reflux disease without esophagitis; E78.5 Hyperlipidemia, unspecified; G47.33 Obstructive sleep apnea (adult) (pediatric); Z99.89 Dependence on other enabling machines and devices; Z20.828 Contact with and (suspected) exposure to other viral communicable diseases; Z87.891 Personal history of nicotine dependence; Z79.899 Other long term (current) drug therapy
CPT/HCPCS: 36415; 71045; 74177; 74181; 76705; 80048; 80076; 80307; 80320; 81003; 82947; 83605; 83690; 85025; 85027; 85610; 86704; 86706; 86709; 86803; 87040; 87340; 87635; 93005; 96361; 96374; 96375; 99231; 99283; 99285; G0480; J1170; J1650; J2405; Q9967

== ENCOUNTER 2020-06-25 23:10 | Inpatient (IN) | payer MEDICARE, MEDICAID, SELFPAY ==
[2020-06-25 23:15] VITALS: PULSE 64; RESP 18; TEMP 37.1; O2SAT 98; BMI 38.7
[2020-06-26] VITALS (10 sets, daily range): BP systolic 114–162; BP diastolic 69–90; PULSE 18–129; RESP 16–20; TEMP 36.4–38.4; O2SAT 88–99; BMI 39.3
--- NOTE | 2020-06-26 02:36 | ED_ITS ---
HPI - Abdominal Pain General Chief Complaint: Abdominal Pain Stated Complaint: Abdominal Pain Time Seen by Provider: 06/26/20 02:27 Source: patient Mode of arrival: ambulatory Limitations: no limitations History of Present Illness HPI narrative: Patient comes to the emergency room complaining of abdominal pain. Patient states it is worse in the epigastric area. Patient was admitted from June 22 through yesterday, he was discharged home. When he arrived home, patient ate a burrito and 50 minutes later he started having excruciating pain in the epigastric area. Today prior to discharge, he had cholangiop ancreatography MRI that showed gallstone in the neck of the gallbladder, mild gallbladder wall thickening and edema findings questionable for acute cholecystitis. Denies vomiting, no diarrhea, complaining of nausea and epigastric pain MD elicited complaint: abdominal pain Related Data Home Medications Medication Instructions Recorded Confirmed albuterol sulfate [Ventolin HFA] 2 puff INHALATION Q4H PRN 06/22/20 06/22/20 budesonide-formoterol [Symbicort] 2 puff INHALATION BID 06/22/20 06/22/20 clonazepam 2 mg PO BEDTIME 06/22/20 06/22/20 dorzolamide-timolol [Cosopt] 1 drp OPHTHALMIC (EYE) BID 06/22/20 06/22/20 duloxetine [Cymbalta] 60 mg PO DAILY 06/22/20 06/22/20 glimepiride 1 mg PO DAILY 06/22/20 06/22/20 ketoconazole 1 appl TOPICAL 2XW PRN 06/22/20 06/22/20 loratadine 10 mg PO DAILY PRN 06/22/20 06/22/20 montelukast [Singulair] 10 mg PO BEDTIME 06/22/20 06/22/20 naltrexone 50 mg PO DAILY 06/22/20 06/22/20 omeprazole 20 mg PO BID 06/22/20 06/22/20 tamsulosin [Flomax] 0.4 mg PO BEDTIME 06/22/20 06/22/20 verapamil 100 mg PO BEDTIME 06/22/20 06/22/20 Allergies Allergy/AdvReac Type Severity Reaction Status Date / Time olanzapine [From ZYPREXA] Allergy Unknown UNKNOWN Verified 06/25/20 23:15 mirtazapine [From REMERON] AdvReac Unknown PAIN IN Verified 06/25/20 23:15 LEGS sertraline [From ZOLOFT] AdvReac Unknown ANXIETY Verified 06/25/20 23:15 Review of Systems Review of Systems Constitutional : No Weight loss, No Fever, No Chills, No Night Sweats, No Fatigue, No Malaise ENT/Mouth : No Hearing loss, No Ear Pain, No Nasal Congestion, No Sinus Pain, No Hoarseness, No sore throat, No Rhinorrhea, No Swallowing Difficulty Eyes: No Eye Pain, No Swelling, No Redness, No Foreign Body, No Discharge, No Vision Changes Cardiovascular : No Chest Pain, No SOB, No Dyspnea on Exertion, No Orthopnea, No Edema, No Palpitations Respiratory : No Cough, No Sputum, No Wheezing, No Smoke Exposure, No Dyspnea Gastrointestinal : Plan of nausea no vomiting no diarrhea, complaining of diffuse abdominal pain, worse in the epigastric area Genitourinary : no irregular bleeding, No Dysuria, No Urinary Frequency, No Hematuria, No Urinary Incontinence, No Urgency, No Flank Pain, No Urinary Flow Changes, No Hesitancy Musculoskeletal : No joint pain, No Myalgias, No Joint Swelling Skin : No Skin Lesions, No rash Neuro : No Weakness, No Numbness, No Paresthesias, No Loss of Consciousness, No Dizziness, No Headache Psych : No Anxiety/Panic, No Depression, No SI/HI/AH/VH, No Social Issues, Heme/Lymph: No Bruising, No Bleeding,No Lymphadenopathy Endocrine : No Polyuria, No Polydipsia, No Temperature Intolerance Physical Exam Vital Signs: Vital Signs: Last Vital Signs Temp 97.9 F 06/26/20 05:48 Pulse 53 06/26/20 05:48 Resp 16 06/26/20 05:48 BP 162/90 H 06/26/20 05:48 Pulse Ox 95 06/26/20 05:48 Body Mass Index 38.7 Appearance: Alert. Oriented X3. No acute distress. Eyes: Pupils equal, round and reactive to light. ENT: Pharynx normal. Neck: Normal inspection. Neck supple. No lymph nodes noted. No crepitus CVS: Normal heart rate and rhythm. Pulses normal. Normal S1 and S2 Respiratory: No respiratory distress. Breath sounds normal. No Wheezing. No rales Abdomen: Soft , tender to palpation over the epigastric area, + muphy's sign Skin: Skin warm and dry. Normal skin color. Normal skin turgor. Extremities: No lower extremity edema. No lower extremity edema. No Lacer ations. No Rash Neuro: Oriented X 3. No motor deficit. No sensory deficit. Moving all extermities. No slurred speech. Course Course Course Narrative: Patient continues having significant right upper quadrant pain. Patient had a positive sonographic Wilkins. I discussed the previous ultrasounds and MRI abdomen with Dr. Gaston from surgery. Patient will be admitted by the surgery team, states that she will inform Dr. Ackerman about the patient, I will go ahead and order a HIDA scan per Dr. Lyon recommendation MDM - Abdominal Pain Lab Data Result diagrams: 06/26/20 03:31 06/26/20 03:30 Labs: Lab Results 06/26/20 06/26/20 Range/Units 03:30 03:31 WBC 8.7 (4.8-10.8) X10*3/uL RBC 5.09 (4.60-5.80) X10*6/uL Hgb 14.9 (14.0-18.0) g/dl Hct 46.2 (42-52) % MCV 90.8 (80-98) fL MCH 29.3 (27.0-33.0) pg MCHC 32.3 (31.0-36.0) g/dl RDW 12.0 (11.0-16.0) % Plt Count 249 (160-400) X10*3/uL MPV 10.7 (9.4-12.4) fL Immature Gran % (Auto) 0.6 H (0.0-0.4) % Neut % (Auto) 59.8 (45-73) % Lymph % (Auto) 26.9 (20-40) % [place] % (Auto) 10.9 (2-11) % Eos % (Auto) 1.3 (0-4) % Baso % (Auto) 0.5 (0-2) % Lymph # (Auto) 2.4 (1.2-4.9) X10*3/uL [place] # (Auto) 1.0 (0.1-1.2) X10*3/uL Eos # (Auto) 0.1 (0.0-0.4) X10*3/uL Baso # (Auto) 0.0 (0.0-0.2) X10*3/uL Abs Immat Gran (auto) 0.05 H (0.00-0.03) X10*3/uL Absolute Neuts (auto) 5.2 (2.0-8.3) X10*3/uL Absolute Nucleated RBC 0.000 (0.0-0.012) X10*3/uL Nucleated RBC % (auto) 0.0 (0.0-0.2) /100WBC Sodium 141 (135-145) mmol/L Potassium 4.0 (3.3-5.1) mmol/l Chloride 103 (96-108) mmol/L Carbon Dioxide 26 (22-29) mmol/L Anion Gap 16 (12-20) BUN 13 (9-16) mg/dL Creatinine 0.97 (0.5-1.4) mg/dL Estim Creat Clear Calc 94.0 Estimated GFR > 60 Random Glucose 151 H D (60-115) mg/dL Calcium 9.5 (8.4-10.2) mg/dL Total Bilirubin 0.7 (0.0-1.0) mg/dL Direct Bilirubin 0.4 (0.0-0.5) mg/dL AST 39 H (5-37) U/L ALT 196 H (0-40) U/L Alkaline Phosphatase 136 H (39-117) U/L Total Protein 7.8 (6.5-8.0) g/dL Albumin 4.7 (3.5-5.0) g/dL Lipase 19 (8-78) U/L Discharge Plan Discharge Clinical Impression: Abdominal pain Patient Disposition: Admitted As Inpatient Prescriptions: No Action glimepiride 1 mg Tablet 1 mg PO DAILY RF: 0 tamsulosin [Flomax] 0.4 mg Capsule 0.4 mg PO BEDTIME RF: 0 clonazepam 2 mg Tablet 2 mg PO BEDTIME RF: 0 omeprazole 20 mg Capsule,Delayed Release(Dr/Ec) 20 mg PO BID RF: 0 verapamil 100 mg Capsule, [address] 100 mg PO BEDTIME RF: 0 dorzolamide-timolol [Cosopt] 22.3-6.8 mg/mL Drops 1 drp OPHTHALMIC (EYE) BID RF: 0 montelukast [Singulair] 10 mg Tablet 10 mg PO BEDTIME RF: 0 albuterol sulfate [Ventolin HFA] 90 mcg/actuation Hfa Aerosol Inhaler 2 puff INHALATION Q4H PRN (Reason: Cough) RF: 0 duloxetine [Cymbalta] 60 mg Capsule,Delayed Release(Dr/Ec) 60 mg PO DAILY RF: 0 budesonide-formoterol [Symbicort] 80-4.5 mcg/actuation Hfa Aerosol Inhaler 2 puff INHALATION BID RF: 0 ketoconazole 2 % Shampoo 1 appl TOPICAL 2XW PRN (Reason: ITCHY SCALP) RF: 0 naltrexone 50 mg Tablet 50 mg PO DAILY RF: 0 loratadine 10 mg Tablet 10 mg PO DAILY PRN (Reason: Allergy Symptoms) RF: 0 PMFSH Past Medical History Medical History Alcohol abuse Anxiety Asthma Diverticulosis GERD (gastroesophageal reflux disease) Hyperlipidemia Hypertension BRI (obstructive sleep apnea) Suicidal ideation Social History Social History Household Members: Friend(s) Alcohol intake: current Alcohol intake frequency: a few times a month Smoking Status: Former smoker Smoked in Last 30 Days: No Advance Directives: No service: No Current occupational status: unemployed
--- NOTE | 2020-06-26 02:40 | US_ITS ---
EXAMINATION: US ABDOMEN LIMITED CLINICAL INFORMATION: Possible acute cholecystitis on MRI from today.. COMPARISON: MRI dated 06/25/2020 and ultrasound from 06/22/2020 TECHNIQUE: Real-time imaging of the right upper quadrant abdominal viscera. FINDINGS: PANCREAS: Body and tail are largely obscured by bowel gas. Imaged portion of the pancreatic head and body are unremarkable. LIVER: Increased hepatic echogenicity is again noted, most consistent with steatosis. Focal hypoattenuation of the gallbladder fossa is most consistent with focal fatty sparing. No focal lesions are identified. No appreciable intrahepatic vessel dilatation. The liver is normal in size and contour. No focal lesions are identified. GALLBLADDER: Echogenic bile is seen within the gallbladder neck and is nonmobile. The gallstone seen on MRI is not well seen by ultrasound. The gallbladder is mildly distended with borderline wall thickening in a few areas. No pericholecystic fluid. No fluid within the wall. COMMON BILE DUCT: Borderline increased in caliber, measuring measured up to 0.66 cm in diameter. This was not apparent on the prior MRI and may be due to measuring of the cystic duct. RIGHT KIDNEY: Normal. No hydronephrosis. No renal calculi or focal parenchymal lesions. The kidney measures 11.9 cm in maximum dimension. FREE FLUID: None. US/US abdomen limited IMPRESSION: Mild nonspecific wall thickening at the gallbladder without additional sonographic findings of acute cholecystitis. The gallstone identified on MRI is not well seen by ultrasound, though a nonmobile focus of echogenic bile is seen. Overall, findings are not suggestive of acute cholecystitis. Consider correlation with a HIDA scan if there is a level of clinical concern.
[2020-06-26] MEDS: Morphine Sulfate 4 MG/ML CARTRIDGE IVPUSH ×2 (03:31→09:05)
[2020-06-26] MEDS: 0.9 % Sodium Chloride 1,000 ML 999 ML IVCONT (03:32)
[2020-06-26 04:28] LABS: MANUAL DIFF FLAG NO
[2020-06-26 04:29] LABS: Basophils Percent Auto 0.5 % (0-2); Eosinophils Absolute Auto 0.1 X10*3/uL (0.0-0.4); Eosinophils Percent Auto 1.3 % (0-4); Hematocrit 46.2 % (42-52); Hemoglobin 14.9 g/dl (14.0-18.0); Imm Gran Abs Auto 0.05 X10*3/uL (0.00-0.03); Imm Gran Pct Auto 0.6 % (0.0-0.4); Lymphocytes Absolute Auto 2.4 X10*3/uL (1.2-4.9); Lymphocytes Percent Auto 26.9 % (20-40); Mean Corpuscular HGB Conc 32.3 g/dl (31.0-36.0); Mean Corpuscular Hemoglobin 29.3 pg (27.0-33.0); Mean Corpuscular Volume 90.8 fL (80-98); Mean Platelet Volume 10.7 fL (9.4-12.4); Monocytes Percent Auto 10.9 % (2-11); Neutrophils Absolute Auto 5.2 X10*3/uL (2.0-8.3); Neutrophils Percent Auto 59.8 % (45-73); Platelet Count 249 X10*3/uL (160-400); Red Blood Count 5.09 X10*6/uL (4.60-5.80); White Blood Count 8.7 X10*3/uL (4.8-10.8)
[2020-06-26 04:55] LABS: Alanine Aminotransferase 196 U/L (0-40); Albumin Level 4.7 g/dL (3.5-5.0); Alkaline Phosphatase 136 U/L (39-117); Anion Gap 16 (12-20); Aspartate Amino Transferase 39 U/L (5-37); Bilirubin Direct 0.4 mg/dL (0.0-0.5); Bilirubin Total 0.7 mg/dL (0.0-1.0); Blood Urea Nitrogen 13 mg/dL (9-16); Calcium 9.5 mg/dL (8.4-10.2); Carbon Dioxide 26 mmol/L (22-29); Chloride 103 mmol/L (96-108); Estimated Glomerular Filt Rate > 60; Glucose Random 151 mg/dL (60-115); Lipase 19 U/L (8-78); Sodium 141 mmol/L (135-145); Total Protein 7.8 g/dL (6.5-8.0)
[2020-06-26] MEDS: HYDROmorphone HCl 1 MG/ML SYRINGE IVPUSH (05:54)
--- NOTE | 2020-06-26 06:04 | NM_ITS ---
EXAMINATION: BILIARY TRACT IMAGING STUDY CLINICAL INFORMATION: Rule out acute cholecystitis. Gallstones and abdominal pain and elevated LFT.. COMPARISON: No previous biliary scan is available for comparison. Abdominal ultrasound dated 06/26/2020, the same date as this lung scan, is available for comparison. The diagnostic CT scan of the abdomen and pelvis, dated 06/22/2020, is available for comparison.. TECHNIQUE: Serial gamma scintillation camera images were obtained over the abdomen for a total observation period 3.5 hours following the intravenous administration of 5 mCi Tc-99m Mebrofenin. FINDINGS: There is good concentration of activity in the liver by 5 minutes post injection. Biliary activity is visualized by 10 minutes. Small bowel is well visualized by 15 minutes. The gallbladder is is not visualized at any time during the study up to 3.5 hours post injection. At 1 hour there is good clearance of activity from the liver and a 3.5 hours the liver activity is not visualized. Diffuse small bowel activity is visualized at this time. NM/NM hepatobiliary wo pharm IMPRESSION: Nonvisualization the gallbladder is evidence of an obstructed cystic duct and strong evidence to suggest the diagnosis of acute cholecystitis. This can also be seen with chronic cholecystitis. The common bile duct is patent. Liver function appears normal.
--- NOTE | 2020-06-26 08:33 | P.HPGS_ITS ---
History of Present Illness History of Present Illness Date of Service: 06/26/20 <Tawny Delgado PA-C - Last Filed: 06/26/20 08:53> 06/26/20 <Kit Ackerman MD - Last Filed: 06/26/20 14:40> Chief complaint: Gallstones <Tawny Delgado PA-C - Last Filed: 06/26/20 08:53> Narrative: Milind Whitman is a 55 year old latvian speaking male with PMH including GERD, HLD, HTN, BRI, [place] the [place] [facility]. The patient was admitted 06/22/20 for abdominal pain, transaminitis. His abdominal pain resolved during the stay and his LFTs improved. Work up showed gallstones without signs of acute cholecystitis or biliary obstruction. His pain/transaminitis was felt to be parenchymal in nature or due to passed stone. Given his improvement and he was tolerating a solid diet, he was discharge to home yesterday with plan for outpatient surgical follow up. Last night, the patient ate soup and a burrito around 7pm and developed sharp, diffuse abdominal pain. He reports it is similar to the prior episode on Thursday. It is severe in nature. He denies nausea, vomiting, fevers or chills. Due to the severity and persistence of pain, he presented back to the ED for evaluation. ABD US was repeated and showed mild nonspecific wall thickening at the gallbladder without additional sonographic findings of acute cholecystitis, no gallstone seen but echogenic bile. LFTs continue to downtrend, alk phos remains around 137. WBC normal. <Tawny Delgado PA-C - Last Filed: 06/26/20 08:53> Review of Systems Constitutional: Constitutional: Denies fever(s) and Denies malaise <Tawny Delgado PA-C - Last Filed: 06/26/20 08:53> Eyes: Eyes: Denies blurry vision <ROMERO Ambrose Last Filed: 06/26/20 08:53> ENT: Denies dizziness <ROMERO Ambrose Last Filed: 06/26/20 08:53> Cardiovascular: Cardiovascular: Denies chest pain, Denies rapid heart rate and Denies dyspnea <Tawny Delgado PA-C Last Filed: 06/26/20 08:53> Respiratory: Respiratory: Denies cough and Denies dyspnea <Tawny Delgado PA-C Last Filed: 06/26/20 08:53> Gastrointestinal: Gastrointestinal: Reports abdominal pain, Denies diarrhea, Denies nausea and Denies vomiting <Tawny Delgado PA-C Last Filed: 06/26/20 08:53> Genitourinary: Genitourinary: Denies hematuria <Tawny Delgado PA-C Last Filed: 06/26/20 08:53> Musculoskeletal: Musculoskeletal: Denies back pain and Denies arthralgias <Tawny Delgado PA-C Last Filed: 06/26/20 08:53> Integumentary/Breasts: Skin/Breast: Denies jaundice <Tawny Delgado PA-C Last Filed: 06/26/20 08:53> Neurologic: Denies dizziness <Tawny Delgado PA-C Last Filed: 06/26/20 08:53> COUNT INCLUDES THE [facility] Past Medical History Medical History: Medical History Alcohol abuse Anxiety Asthma Diverticulosis GERD (gastroesophageal reflux disease) Hyperlipidemia Hypertension BRI (obstructive sleep apnea) Suicidal ideation <Tawny Delgado PA-C Last Filed: 06/26/20 08:53> Social History Social History: Social History Household Members: Friend(s) Alcohol intake: current Alcohol intake frequency: a few times a month Smoking Status: Former smoker Smoked in Last 30 Days: No Advance Directives: No service: No Current occupational status: disabled <ROMERO Ambrose Last Filed: 06/26/20 08:53> Meds Allergies/Adverse reactions: Allergies Allergy/AdvReac Type Severity Reaction Status Date / Time olanzapine [From ZYPREXA] Allergy Unknown UNKNOWN Verified 06/25/20 23:15 mirtazapine [From REMERON] AdvReac Unknown PAIN IN Verified 06/25/20 23:15 LEGS sertraline [From ZOLOFT] AdvReac Unknown ANXIETY Verified 06/25/20 23:15 <Tawny Delgado PA-C - Last Filed: 06/26/20 08:53> Home medications: Home Medications Medication Instructions Recorded Confirmed Type albuterol sulfate [Ventolin HFA] 2 puff INHALATION Q4H PRN 06/22/20 06/26/20 History budesonide-formoterol [Symbicort] 2 puff INHALATION BID 06/22/20 06/26/20 History clonazepam 2 mg PO BEDTIME 06/22/20 06/26/20 History dorzolamide-timolol [Cosopt] 1 drp OPHTHALMIC (EYE) BID 06/22/20 06/26/20 History duloxetine [Cymbalta] 60 mg PO DAILY 06/22/20 06/26/20 History glimepiride 1 mg PO DAILY 06/22/20 06/26/20 History ketoconazole 1 appl TOPICAL 2XW PRN 06/22/20 06/26/20 History loratadine 10 mg PO DAILY PRN 06/22/20 06/26/20 History montelukast [Singulair] 10 mg PO BEDTIME 06/22/20 06/26/20 History naltrexone 50 mg PO DAILY 06/22/20 06/26/20 History omeprazole 20 mg PO BID 06/22/20 06/26/20 History tamsulosin [Flomax] 0.4 mg PO BEDTIME 06/22/20 06/26/20 History verapamil 100 mg PO BEDTIME 06/22/20 06/26/20 History aripiprazole 2 mg PO DAILY 06/26/20 06/26/20 History aspirin 81 mg PO DAILY 06/26/20 06/26/20 History metformin 500 mg PO BID 06/26/20 06/26/20 History rosuvastatin 40 mg PO DAILY 06/26/20 06/26/20 History <Tawny Delgado PA-C - Last Filed: 06/26/20 08:53> Physical Exam Vital Signs: Vital Signs: Last Vital Signs Temp 97.9 F 06/26/20 05:48 Pulse 53 06/26/20 05:48 Resp 16 06/26/20 05:48 BP 162/90 H 06/26/20 05:48 Pulse Ox 95 06/26/20 05:48 Body Mass Index 38.7 <Tawny Perezdeau ROMERO Chaudhari Last Filed: 06/26/20 08:53> Const: General: no acute distress, alert and other (in pain) <Tawny RandleLORENA de guzmanYuki Chaudhari Last Filed: 06/26/20 08:53> Orientation/consciousness: patient oriented x3 <Tawny RandleCASIMIRO de guzmanYasmin Chaudhari Last Filed: 06/26/20 08:53> Eyes: Sclerae: sclerae normal <Tawny Perezdeau ROMERO Chaudhari Filed: 06/26/20 08:53> Resp: Effort & Inspection: normal respiratory effort <Tawny RandleCASIMIRO de guzmanYasmin Chaudhari Filed: 06/26/20 08:53> Auscultation: clear to auscultation bilaterally <Tawny RandleCASIMIRO de guzmanYasmin Chaudhari Filed: 06/26/20 08:53> Cardio: Rate: regular rate <Tawny RandleCASIMIRO de guzmanYasmin Chaduhari Filed: 06/26/20 08:53> Rhythm: regular rhythm <Tawny PerezdeauCASIMIROYasmin Chaudhari Last Filed: 06/26/20 08:53> GI: Inspection: No scar and Yes other (protuberant) <Tawny RandleCASIMIRO de guzmanYasmin Chaudhari Filed: 06/26/20 08:53> Palpation (GI): Soft to palpation, Tenderness to palpation present (GI) in the epigastrum, in the RUQ and Wilkins's sign positive; with no rebound tenderness and no guarding <Tawny RandleCASIMIRO de guzmanYasmin Chaudhari Last Filed: 06/26/20 08:53> Skin: Other: normal color, warm and dry <Tawny RandleCASIMIRO de guzmanYasmin Chaudhari Last Filed: 06/26/20 08:53> General skin exam: no rashes or lesions noted <Tawny RandleCASIMIRO de guzmanYasmin Chaudhari Filed: 06/26/20 08:53> Neuro: General: patient oriented x3 <Tawny RandleCASIMIRO de guzmanYasmin Chaudhari Last Filed: 06/26/20 08:53> Extrem: General: Yes no clubbing, cyanosis or edema <Tawny ROMERO Delgado - Last Filed: 06/26/20 08:53> Results Results Labs: Short CBC 06/26/20 Range/Units 03:31 WBC 8.7 (4.8-10.8) X10*3/uL Hgb 14.9 (14.0-18.0) g/dl Hct 46.2 (42-52) % Plt Count 249 (160-400) X10*3/uL BMP 06/26/20 03:30 Sodium 141 Potassium 4.0 Chloride 103 Carbon Dioxide 26 BUN 13 Creatinine 0.97 Calcium 9.5 Liver Function 06/26/20 Range/Units 03:30 Total Bilirubin 0.7 (0.0-1.0) mg/dL Direct Bilirubin 0.4 (0.0-0.5) mg/dL AST 39 H (5-37) U/L ALT 196 H (0-40) U/L Alkaline Phosphatase 136 H (39-117) U/L Albumin 4.7 (3.5-5.0) g/dL ABD US: Mild nonspecific wall thickening at the gallbladder without additional sonographic findings of acute cholecystitis. The gallstone identified on MRI is not well seen by ultrasound, though a nonmobile focus of echogenic bile is seen. Overall, findings are not suggestive of acute cholecystitis. <Tawny Delgado PA-C - Last Filed: 06/26/20 08:53> Assessment and Plan (1) Gallstones: Status: Acute <Tawny Delgado PA-C - Last Filed: 06/26/20 08:53> Mr. Whitman is a 55 year old male presenting with sharp, now diffuse abdominal pain following fatty food ingestion. ABD US shows echogenic bile, mild wall thickening of gallbladder without pericholecystic fluid. He will be admitted to the surgical service for further treatment of the symptomatic gallstones vs early acute cholecystitis. Given recurrence of pain, and nonspecific US findings, HIDA scan being obtained. Wall thickening without pericholecystic fluid suggestive of more chronic process. Await HIDA scan results. Likely benefit from CCY given severity of pain and recurrence. Will start on IVF, PRN analgesics. WBC normal therefore will hold off on antibiotics. Patient seen with mailing clerk. Case discussed with Dr. Ackerman. Will complete home medication resumption once reconciliation complete. <Tawny Delgado PA-C - Last Filed: 06/26/20 08:53> pt is wellknown to me admitted last Thursday for abnormal LFTs - mostly AST,ALT with episode of upper abdl pain gallstones on US w/o cholecystitis had been pain free over the weekend so discharged yesterday had burrito last night, subsequent RUQ pain no leukocytosis AST, ALT have continue to trend down HIDA started - GB not visualizing at this time but waiting for later films pain specific to RUQ MRI - no CBD obstruction, ? stone in neck no other identifiable etiology except for gallstone biliary colic vs cholecystitis? may have passed a small stone last week? explained pt option of proceeding with lap alison, poss. open reviewed technique explained risks incl but not limited to bleeding, infections, injury to bowel, liver, bile duct, retained stones, bile leak, as well as benefits and alternatives; small chance pain may persist plan to proceed with lap alison marivel follow LFTs <Kit Ackerman MD - Last Filed: 06/26/20 14:40> (2) Abdominal pain: Qualifiers: Abdominal location: right upper quadrant Qualified Code(s): R10.11 - Right upper quadrant pain <Tawny Delgado PA-C - Last Filed: 06/26/20 08:53> Status: Acute <Tawny Delgado PA-C - Last Filed: 06/26/20 08:53>
[2020-06-26] MEDS: 0.9 % Sodium Chloride 1,000 ML 100 ML IVCONT ×2 (11:27→22:41)
--- NOTE | 2020-06-26 12:50 | PC.NURSE ---
patient at [facility] scan
[2020-06-26] MEDS: Ketorolac Tromethamine 15 MG/ML VIAL 30 MG IV ×2 (13:30→20:30)
--- NOTE | 2020-06-26 14:12 | MHC.CM.PN ---
Met with patient and senior communications specialist in regards to discharge planning. Patient lives with his girlfriend, ambulates independently and had no services prior to coming to the hospital. No services anticipated to be needed because patient is not homebound. PCP verified as being at [facility]. HCP verified to be on file. IMM explained and signed. Patient's girlfriend will transport patient home when medically stable. Continue to monitor for d/c needs.
--- NOTE | 2020-06-26 14:24 | PC.NURSE ---
patient returned from HIDA scan, seen by Dr. Ackerman, patient given ice chips per Dr. Ackerman. continued abdominal pain. Patient going back to finish HIDA scan around 4pm, no narcotics to be given until later.
--- NOTE | 2020-06-26 15:57 | PC.NURSE ---
HUANG PAIGE AWARE OF PATIENT HIGH HEART RATE .
--- NOTE | 2020-06-26 18:11 | PC.NURSE ---
ADMITTING PROVIDER (CHET JASSO) THROUGH [employer] @[phone]. NO RESPONSE. SURGERY ON-CALL CONTACTED THROUGH [employer] @ [phone]. NO RESPONSE. SURGERY ON-CALL ANSWERING SERVICE CALLED AT [phone] @ [phone]. NO RESPONSE. SURGERY ON-CALL ANSWERING SERVICE CONTACTED AGAIN AT [phone] @[phone]. STILL AWAITING RESPONSE AT THIS TIME.
--- NOTE | 2020-06-26 18:26 | PC.NURSE ---
SURGEON ON-CALL (VIRIDIANA) CALLS BACK @ [phone]. CALL TRANSFERRED TO DR. RIOS.
[2020-06-26] MEDS: oxyCODONE HCl Immed Release 5 MG TABLET PO (18:52)
[2020-06-26] MEDS: 0.9 % Sodium Chloride Flush 3 ML SYRINGE IVFLUSH (18:53)
[2020-06-26 19:56] LABS: Glucose, Whole Blood 149 mg/dL (60-115)
[2020-06-26] MEDS: Tamsulosin HCL 0.4 MG CAPSULE PO (20:31)
[2020-06-26] MEDS: Montelukast Sodium 10 MG TABLET PO (20:31)
[2020-06-27] VITALS (16 sets, daily range): BP systolic 103–133; BP diastolic 61–79; PULSE 76–128; RESP 16–24; TEMP 36.4–37.6; O2SAT 92–96; BMI 39.3
--- NOTE | 2020-06-27 | ECG_ITS ---
Test Reason : PREOP Blood Pressure : / mmHG Vent. Rate : 120 BPM Atrial Rate : 120 BPM P-R Int : 150 ms QRS Dur : 092 ms QT Int : 284 ms P-R-T Axes : 041 -18 -18 degrees QTc Int : 401 ms Sinus tachycardia Possible Left atrial enlargement Left ventricular hypertrophy Nonspecific T wave abnormality Abnormal ECG When compared with ECG of 22-JUN-2020 07:37, Vent. rate has increased BY 43 BPM Nonspecific T wave abnormality, worse in Anterolateral leads Referred By: Tawny Delgado Electronically Signed By:ODIN CARBALLO MD
[2020-06-27] MEDS: Ketorolac Tromethamine 15 MG/ML VIAL 30 MG IV ×2 (00:57→07:15)
[2020-06-27] MEDS: Morphine Sulfate 4 MG/ML CARTRIDGE IVPUSH (04:22)
[2020-06-27] MEDS: 0.9 % Sodium Chloride 1,000 ML 100 ML IVCONT ×2 (05:41→16:30)
[2020-06-27] MEDS: Omeprazole 20 MG CAPSULE.DR PO ×2 (05:41→16:31)
[2020-06-27] MEDS: oxyCODONE HCl Immed Release 5 MG TABLET PO ×2 (07:15→20:27)
[2020-06-27] MEDS: 0.9 % Sodium Chloride Flush 3 ML SYRINGE IVFLUSH ×2 (07:15→16:30)
[2020-06-27 07:17] LABS: Alanine Aminotransferase 114 U/L (0-40); Alkaline Phosphatase 99 U/L (39-117); Anion Gap 17 (12-20); Aspartate Amino Transferase 24 U/L (5-37); Bilirubin Direct 0.9 mg/dL (0.0-0.5); Bilirubin Total 1.4 mg/dL (0.0-1.0); Blood Urea Nitrogen 9 mg/dL (9-16); Calcium 8.5 mg/dL (8.4-10.2); Carbon Dioxide 20 mmol/L (22-29); Chloride 108 mmol/L (96-108); Creatinine Clr Calc Pharmacy 82.1; Estimated Glomerular Filt Rate > 60; Glucose Fasting 122 mg/dL (60-99); Potassium 3.8 mmol/l (3.3-5.1); Sodium 141 mmol/L (135-145); Total Protein 6.7 g/dL (6.5-8.0)
[2020-06-27] MEDS: Piperacillin Sodium/Tazobactam 3.375 GM in 0.9 % Sodium Chloride 50 ML IV ×2 (08:15→16:30)
[2020-06-27] MEDS: DULoxetine HCl 60 MG CAPSULE.DR PO (08:16)
[2020-06-27] MEDS: ARIPiprazole 2 MG TABLET PO (08:16)
--- NOTE | 2020-06-27 08:19 | PM.EVENT ---
Event Note Date of Service: 06/27/20 Event Note: HIDA scan positive for acute cholecystitis. Plan for lap possible open CCY today. Plan discussed with patient and by Dr. Ackerman. Has been tachycardic, intermittently febrile overnight. IV zosyn initiated for acute cholecystitis. Will obtain pre op EKG. May be secondary to pain, infection or combination. On IVF.
--- NOTE | 2020-06-27 10:35 | P.CONAN_ITS ---
[facility] [place] Past Medical History Medical History Alcohol abuse Anxiety Asthma Diverticulosis GERD (gastroesophageal reflux disease) Hyperlipidemia Hypertension BRI (obstructive sleep apnea) Suicidal ideation Social History Social History Household Members: Significant Other Housing: Apartment Alcohol intake: current Alcohol intake frequency: a few times a month Smoking Status: Former smoker service: No Current occupational status: disabled Meds Allergies Allergy/AdvReac Type Severity Reaction Status Date / Time olanzapine [From ZYPREXA] Allergy Unknown UNKNOWN Verified 06/25/20 23:15 mirtazapine [From REMERON] AdvReac Unknown PAIN IN Verified 06/25/20 23:15 LEGS sertraline [From ZOLOFT] AdvReac Unknown ANXIETY Verified 06/25/20 23:15 Home Medications Medication Instructions Recorded Confirmed Type albuterol sulfate [Ventolin HFA] 2 puff INHALATION Q4H PRN 06/22/20 06/26/20 History budesonide-formoterol [Symbicort] 2 puff INHALATION BID 06/22/20 06/26/20 History clonazepam 2 mg PO BEDTIME 06/22/20 06/26/20 History dorzolamide-timolol [Cosopt] 1 drp OPHTHALMIC (EYE) BID 06/22/20 06/26/20 History duloxetine [Cymbalta] 60 mg PO DAILY 06/22/20 06/26/20 History glimepiride 1 mg PO DAILY 06/22/20 06/26/20 History ketoconazole 1 appl TOPICAL 2XW PRN 06/22/20 06/26/20 History loratadine 10 mg PO DAILY PRN 06/22/20 06/26/20 History montelukast [Singulair] 10 mg PO BEDTIME 06/22/20 06/26/20 History naltrexone 50 mg PO DAILY 06/22/20 06/26/20 History omeprazole 20 mg PO BID 06/22/20 06/26/20 History tamsulosin [Flomax] 0.4 mg PO BEDTIME 06/22/20 06/26/20 History verapamil 100 mg PO BEDTIME 06/22/20 06/26/20 History aripiprazole 2 mg PO DAILY 06/26/20 06/26/20 History aspirin 81 mg PO DAILY 06/26/20 06/26/20 History metformin 500 mg PO BID 06/26/20 06/26/20 History rosuvastatin 40 mg PO DAILY 06/26/20 06/26/20 History Exam Exam Date and Time: June 27, 2020 1035 Height,Weight and Vital Signs: Height 5 ft 5 in Weight 107.27 kg Last Vital Signs Temp 97.8 F 06/27/20 07:36 Pulse 128 H 06/27/20 07:36 Resp 24 H 06/27/20 07:36 BP 119/71 06/27/20 07:36 Pulse Ox 94 06/27/20 07:36 Pertinent Lab Results Pertinent Lab Results: Laboratory Tests 06/26/20 06/26/20 06/26/20 03:30 03:31 18:57 WBC 8.7 RBC 5.09 Hgb 14.9 Hct 46.2 MCV 90.8 MCH 29.3 MCHC 32.3 RDW 12.0 Plt Count 249 MPV 10.7 Immature Gran % (Auto) 0.6 H Neut % (Auto) 59.8 Lymph % (Auto) 26.9 Wells % (Auto) 10.9 Eos % (Auto) 1.3 Baso % (Auto) 0.5 Lymph # (Auto) 2.4 Wells # (Auto) 1.0 Eos # (Auto) 0.1 Baso # (Auto) 0.0 Abs Immat Gran (auto) 0.05 H Absolute Neuts (auto) 5.2 Absolute Nucleated RBC 0.000 Nucleated RBC % (auto) 0.0 Sodium 141 Potassium 4.0 Chloride 103 Carbon Dioxide 26 Anion Gap 16 BUN 13 Creatinine 0.97 Estim Creat Clear Calc 94.0 Estimated GFR > 60 POC Glucose 149 H Random Glucose 151 H D Fasting Glucose Calcium 9.5 Total Bilirubin 0.7 Direct Bilirubin 0.4 AST 39 H ALT 196 H Alkaline Phosphatase 136 H Total Protein 7.8 Albumin 4.7 Lipase 19 06/27/20 05:22 WBC RBC Hgb Hct MCV MCH MCHC RDW Plt Count MPV Immature Gran % (Auto) Neut % (Auto) Lymph % (Auto) Wells % (Auto) Eos % (Auto) Baso % (Auto) Lymph # (Auto) Wells # (Auto) Eos # (Auto) Baso # (Auto) Abs Immat Gran (auto) Absolute Neuts (auto) Absolute Nucleated RBC Nucleated RBC % (auto) Sodium 141 Potassium 3.8 Chloride 108 Carbon Dioxide 20 L Anion Gap 17 BUN 9 Creatinine 1.12 Estim Creat Clear Calc 82.1 Estimated GFR > 60 POC Glucose Random Glucose Fasting Glucose 122 H Calcium 8.5 D Total Bilirubin 1.4 H Direct Bilirubin 0.9 H AST 24 ALT 114 H Alkaline Phosphatase 99 D Total Protein 6.7 Albumin 4.0 Lipase Airway Mallampati Class: III TM Dist: >3cm Neck ROM: Full
[2020-06-27] MEDS: Lactated Ringers 1,000 ML 100 ML IVCONT (11:08)
--- NOTE | 2020-06-27 11:43 | MHC.SHP ---
Pre-Procedural Eval Section B Chief Complaint: Gallstones Allergies: Allergies Allergy/AdvReac Type Severity Reaction Status Date / Time olanzapine [From ZYPREXA] Allergy Unknown UNKNOWN Verified 06/25/20 23:15 mirtazapine [From REMERON] AdvReac Unknown PAIN IN Verified 06/25/20 23:15 LEGS sertraline [From ZOLOFT] AdvReac Unknown ANXIETY Verified 06/25/20 23:15 Plan I have reviewed the history and physical and performed a pertinent physical examination on my patient. No changes have occurred unless specified.
--- NOTE | 2020-06-27 14:13 | P.BOP_ITS ---
Brief Operative Note Date of Service: 06/27/20 Pre-op diagnosis: acute calculous cholecystitis Post-op diagnosis: same (gangrenous) Procedure: laparoscopic cholecystectomy Implants: No implants LIDA drain placed Surgeon: VICKI LYNN MD Anesthesia: ISABEL Mannequin Sander And Finisher: Tawny Delgado Estimated blood loss (mL): 100 Pathology: other (gallbladder) Condition: stable Disposition: PACU
--- NOTE | 2020-06-27 14:42 | MHC.CM.PN ---
dc plan [facility] no services
--- NOTE | 2020-06-27 14:46 | PC.NURSE ---
1440 DR LYNN SPEAKING WITH PT AT BS NO CONCERNS AT PRESENT FROM PT.
--- NOTE | 2020-06-27 15:37 | PM.EVENT ---
Event Note Date of Service: 06/27/20 Event Note: Seen postop Underwent laparoscopic cholecystectomy earlier, difficult in view of severe inflammation, induration and areas of gangrene on the wall of the gallbladder Looks comfortable Good pain control Stable vital signs Abdomen soft LIDA drain -minimal output, dark blood Pain management Antibiotics in view of presence of gallbladder wall gangrene Doing well otherwise Discussed with Ksenia
[2020-06-27] MEDS: Tamsulosin HCL 0.4 MG CAPSULE PO (20:24)
[2020-06-27] MEDS: Atorvastatin Calcium 80 MG TABLET PO (20:25)
[2020-06-27] MEDS: Montelukast Sodium 10 MG TABLET PO (20:25)
--- NOTE | 2020-06-27 21:22 | OP_ITS ---
SURGEON: Kit Ackerman MD INDICATIONS: The patient is a 55-year-old male, who was admitted yesterday because of episode of right upper quadrant pain. He had been admitted to the hospital the weekend because of elevated AST and ALT. He did not show any evidence of acute cholecystitis on imaging studies. However, he had another episode at home and was re-admitted yesterday morning. He was sent for a HIDA scan, which did show acute cholecystitis with non-visualizing gallbladder. I explained to the technique of laparoscopic cholecystectomy and possible open. I reviewed the risks including, but not limited to bleeding, infections, bowel injury, bile leak, retained stones, injury to the bile duct and liver, as well as benefits and alternatives and he had given consent. PREOPERATIVE DIAGNOSIS: Acute calculous cholecystitis. POSTOPERATIVE DIAGNOSIS: Acute calculous cholecystitis with gangrene with severe induration inflammation. PROCEDURE PERFORMED: Laparoscopic cholecystectomy. ESTIMATED BLOOD LOSS: COMPLICATIONS: ANESTHESIA: ASSISTANTS: Tawny Delgado PA-C. SPECIMENS: DESCRIPTION OF PROCEDURE: He was brought to the operating room, placed supine on the table under general anesthesia via endotracheal tube. The abdomen was prepped and draped in usual sterile fashion. A surgical time-out was done. The patient received Cefotan 2 g IV preoperatively. A small supraumbilical longitudinal incision was made in the skin using blade #15, this was carried down to full-thickness skin and subcutaneous fat down to the fascia. The fascia was incised. The peritoneum was entered and through this incision, a Kev port was introduced. Pneumoperitoneum was introduced to a pressure of 15 mmHg. From here on, the rest of procedure was done under vision with the laparoscope. We proceeded to then insert another 5/12 mm port in the epigastric area below the subcostal margin. 5 mm port was introduced through a small incision below the subcostal margin along the anterior axillary line and the midclavicular line. The patient was placed in head-up and [id number] position. Graspers were placed through the working ports. The examination of right upper quadrant revealed that the omentum was covering the entire subhepatic space. We had to do careful blunt dissection with the graspers to release this adherent omentum from the dome of the gallbladder and by doing so, we were able to at least visualize most of the top part of the gallbladder. The gallbladder was markedly distended and was tense with a very thickened wall, so we could not apply the graspers. We had to therefore decompress this using an aspirating needle from one of the epigastric ports. We decompressed the gallbladder and thick bile was evacuated. This allowed us to decompress the gallbladder enough and we were able to apply a grasper at the fundus. This was used to retract the the gallbladder cephalad. The rest of the gallbladder was covered with omentum and we could not visualize the anterior wall. We therefore proceeded to continue to separate omentum from the gallbladder gently using blunt dissection with the tip of the suction superannuation clerk as well as with the [place] dissector. We proceeded to continue to do this Dissect, but this did take a significant period of time before we were able to actually visualize the anterior wall. There was note of a very thickened, inflamed and severely edematous gallbladder wall. With retraction of the gallbladder cephalad, was able to apply another grasper at the anterior wall. This allowed us to retract the gallbladder into the field, but there was note of significant amount of thickened, adhered omentum towards the neck of the gallbladder. Furthermore, because of his habitus with morbid obesity, this did not allow us to get visualization with the flat scope, so we had to switch to a 30-degree 10 mm scope. This allowed us better visualization of the area of the neck of the gallbladder. Again, there was note of large amounts of omentum covering this area. We had to retract this to allow visualization, so we applied another 5 mm port on the left upper quadrant. We inserted a grasper through this and this grasper was used to retract the omentum away from the subhepatic space. By doing so, we had much better visualization of the approximate area of the neck of the gallbladder. Again, there was still a lot of densely adherent omentum, which we had to carefully dissect bluntly using the [place] dissector and after an extended period of time in dissection, we were able to eventually see what appeared to be the funneling of the neck of the gallbladder that represented the cystic duct. To be able to allow us to pull up the gallbladder into the field, we also had to do dissection of the medial aspect by removing all these thickened fibroareolar tissue using the [place] dissector. We stayed above the what appeared to be the lymph node of Calot and by staying above this, we continued to separate the gallbladder from the rest of the severely indurated fibroareolar tissue towards the neck. We were able to apply the other grasper more distal toward the neck and applied retraction laterally to put the approximate area of the cystic duct on stretch. We continued to bluntly dissect this area until we were able to see what appeared to be the transition of the neck toward the cystic duct. We continued to do a lot of gentle dissection with [place] dissector to carefully define this. We had to separate more of the thickened and inflamed fibroareolar tissue from the medial aspect to allow us good visualization of the triangle of Calot. We had to clip some of these bands as I was uncertain as to some of these were actually presented any of the cystic artery. It was difficult to clear the entire anterior wall and hepatocystic triangle in view of the severe induration, but eventually, Iwas able to expose the entire body and neck of gallbladder. The gallbladder was very long and markedly thickened. I continued to dissect the neck of the gallbladder until we were able to clearly define the funneling toward the cystic duct. I then proceeded to apply clips with 2 clips being applied distally and the cystic duct was transected between clips with Endo scissors. We proceeded to apply traction on the gallbladder away from the liver bed. We proceeded to continue to dissect all these fibrous bands and one of them appeared to be a remnant of the cystic artery, so this was carefully defined, and divided between the clips with Endo scissors as well. We continued to do dissection of the rest of the gallbladder off from the hilum and to ensure that we had good hemostasis, I had to apply clips multiple times and transected some of these fibrous bands with scissors to make sure that this area was hemostatic. Again, we stayed as close to the gallbladder as we could and we kept the dissection away from the portal structures. We continued to gently separate the gallbladder until we reached the interface of the gallbladder wall and the liver bed. At this point, I used the electrocautery spatula for the thickened peritoneum of the gallbladder. I gently cauterized the thickened gallbladder wall to define a plane of dissection between the gallbladder and liver bed. I had to alternate with an L-hook to separate the gallbladder wall from the liver bed. Again, the gallbladder had very poor planes because of this severe thickening and induration and there was a lot of oozing as well from the planes. Furthermore, as we dissected, we noted the posterior wall of the gallbladder had areas of gangrene. the gallbladder from the took an extended period of time because of the very poor planes, oozing, and thickening of the gallbladder wall. I proceeded to continue to dissect all the way to the fundus until the entire gallbladder was completely from the liver bed. The gallbladder was also intrahepatic towards the infundibulum and the fundus. The gallbladder was retrieved through an Endobag through the umbilical incision. There were large stones, so we had to lengthen the umbilical incision on the skin to allow us to retrieve the gallbladder. We reinserted the ports and re-insufflated. I did copious irrigation in view of some spillage of bile from the gallbladder. 2 L of irrigation fluid was done. I suctioned out the irrigant fluid. This was initially bloody, but there was note of significant oozing from the liver bed during the entire dissection. I therefore positioned a LIDA #7 drain through the epigastric port and this was pulled out through the one of the right-sided ports. We positioned the LIDA drain under the subhepatic space. I I then applied a Surgicel packing into the subhepatic space on the liver bed and observed for hemostasis. We observed for about 2 minutes after copious irrigation and suctioning. There was no pooling of blood and the subhepatic space now appeared hemostatic without significant bleeding. I observed all four quadrants and there was no other pathology or any evidence of any bowel injury or bile leak. We secured the LIDA drain to the skin with 3-0 nylon sutures. We then continued to observe the subhepatic space and this appeared hemostatic, so we desufflated the port sites and removed all ports under vision with the laparoscope. The umbilical port was removed last. The fascia of umbilical incision was closed with [id number] Dexon 0 stitch. Skin closure was achieved in all incisions using Dexon 4-0 subcuticular running sutures. Steri-Strips and dressings were applied. All incisions were infiltrated with Marcaine 0.5% for postop analgesia. The procedure was completed. The patient tolerated the procedure well. There were no complications noted. Initial and final counts of sponges and instruments were correct. Estimated blood loss about 200 mL. The patient was extubated without difficulty and transferred to recovery room with stable vital signs. MD LILLIAN Castillo/JEAN / [id number] SUNDEEP
[2020-06-27] MEDS: Dorzolamide/Timolo 2.23%/0.68% 10 ML DRBTL 1 DROP EYE-BOTH (21:51)
[2020-06-28] VITALS (9 sets, daily range): BP systolic 108–127; BP diastolic 66–75; PULSE 68–88; RESP 18–30; TEMP 36.2–37.1; O2SAT 90–96
[2020-06-28] MEDS: Piperacillin Sodium/Tazobactam 3.375 GM in 0.9 % Sodium Chloride 50 ML IV ×3 (00:21→15:42)
[2020-06-28] MEDS: oxyCODONE HCl Immed Release 5 MG TABLET PO ×3 (02:13→15:42)
[2020-06-28] MEDS: 0.9 % Sodium Chloride 1,000 ML 100 ML IVCONT (02:15)
[2020-06-28] MEDS: Omeprazole 20 MG CAPSULE.DR PO ×2 (06:31→15:42)
--- NOTE | 2020-06-28 07:55 | PM.PNGS ---
Subjective Subjective Date of Service: 06/28/20 <Tawny Delgado PA-C - Last Filed: 06/28/20 07:59> 06/28/20 <Kit Ackerman MD - Last Filed: 06/28/20 08:28> Interval history: Some incisional pain but feels much better. Tolerating clear liquids. <Tawny Delgado PA-C - Last Filed: 06/28/20 07:59> Physical Exam Vital Signs: Vital Signs: Last Vital Signs Temp 98.0 F 06/28/20 07:22 Pulse 75 06/28/20 07:22 Resp 30 H 06/28/20 07:22 BP 108/66 06/28/20 07:22 Pulse Ox 94 06/28/20 07:22 Body Mass Index 39.3 <ROMERO Ambrose Last Filed: 06/28/20 07:59> Const: General: comfortable, no acute distress and alert <Tawny Delgado PA-C - Last Filed: 06/28/20 07:59> Orientation/consciousness: patient oriented x3 <Tawny Delgado PA-C - Last Filed: 06/28/20 07:59> Eyes: Sclerae: sclerae normal <ROMERO Ambrose Last Filed: 06/28/20 07:59> Resp: Effort & Inspection: normal respiratory effort <Tawny Delgado PA-C - Last Filed: 06/28/20 07:59> Cardio: Rate: regular rate <ROMERO Ambrose Last Filed: 06/28/20 07:59> GI: Other: LIDA serosanguineous drainage <ROMERO Ambrose Last Filed: 06/28/20 07:59> Inspection: Yes incision (dressings clean) <ROMERO Ambrose Last Filed: 06/28/20 07:59> Palpation (GI): Soft to palpation, Tenderness to palpation present (GI) (mild, incisional), no guarding and not rigid <ROMERO Ambrose Last Filed: 06/28/20 07:59> Skin: General skin exam: no rashes or lesions noted <Tawny Delgado PA-C - Last Filed: 06/28/20 07:59> Neuro: General: patient oriented x3 <Tawny Delgado PA-C - Last Filed: 06/28/20 07:59> Extrem: General: Yes no clubbing, cyanosis or edema <Tawny Delgado PA-C - Last Filed: 06/28/20 07:59> Progress Note: A&P Assessment and plan (1) Acute cholecystitis due to biliary calculus: Status: Acute <Tawny Delgado PA-C - Last Filed: 06/28/20 07:59> Assessment and Plan: Status post lap cholecystectomy - difficult due to severe inflammation, patches of gangrene Feels much better Good pain control Abdomen soft LIDA scanty output with old blood Diet as tolerated Seen and examined - agree with CASIMIRO Delgado Marjorie updated <Kit Ackerman MD - Last Filed: 06/28/20 08:28> (2) S/P laparoscopic cholecystectomy: Problem details: POD #1 <Tawny Deglado PA-C - Last Filed: 06/28/20 07:59> Status: Acute <Tawny Delgado PA-C - Last Filed: 06/28/20 07:59> Assessment and Plan: Doing well post op, comfortable. VSS. Abd exam benign with appropriate post op tenderness, dressings C/D/I. LIDA drain serosanguineous, nonbilious output. Will advance to low fat diet today. Encouraged OOB/ambulation and IS use. D/c IVF. Home likely tomorrow if continues to do well. Keep LIDA in drain for now, possible removal tomorrow prior to d/c. Cont IV zosyn given gangrenous gallbladder. <ROMERO Ambrose Last Filed: 06/28/20 07:59> Fall Risk Details Current Medications: Current Medications Generic Name Dose Route Start Last Admin Trade Name Freq PRN Reason Stop Dose Admin Acetaminophen 650 mg 06/27/20 16:03 Acetaminophen 325 Mg Tablet PO Q6H PRN fever, abdominal pain Albuterol Sulfate 2 puff 06/26/20 08:24 Albuterol Sulfate 90 Mcg 8 Gm Inhaler INHALE Q4H PRN Shortness of Breath/Wheezing Aripiprazole 2 mg 06/27/20 09:00 06/27/20 08:16 Aripiprazole 2 Mg Tablet PO 2 mg DAILY HUMBERTO Administration Atorvastatin Calcium 80 mg 06/27/20 21:00 06/27/20 20:25 Atorvastatin Calcium 80 Mg Tablet PO 80 mg BEDTIME HUMBERTO Administration Docusate Sodium 100 mg 06/26/20 08:16 Docusate Sodium 100 Mg Capsule PO BID PRN Constipation Dorzolamide/Timolol 1 drop 06/27/20 09:00 06/27/20 21:51 Dorzolamide/Timolo 2.23%/0.68% 10 Ml Drbtl EYE-BOTH 1 drop BID HUMBERTO Administration Duloxetine HCl 60 mg 06/26/20 09:00 06/27/20 08:16 Duloxetine Hcl 60 Mg Capsule.Dr PO 60 mg DAILY HUMBERTO Administration Fluticasone/Vilanterol 1 puff 06/27/20 08:00 06/27/20 07:17 Fluticasone/Vilanterol 100/25 Blst.W.Dev INHALE Not Given RDAILY HUMBERTO Sodium Chloride 1,000 mls @ 100 mls/hr 06/26/20 08:30 06/28/20 02:15 Ns IVCONT 100 mls/hr .Q10H HUMBERTO Administration Piperacillin Sod/Tazobactam 50 mls @ 100 mls/hr 06/27/20 08:00 06/28/20 01:09 Sod 3.375 gm/ Sodium Chloride IV Infused Q8H HUMBERTO Infusion Montelukast Sodium 10 mg 06/26/20 21:00 06/27/20 20:25 Montelukast Sodium 10 Mg Tablet PO 10 mg BEDTIME HUMBERTO Administration Morphine Sulfate 4 mg 06/26/20 08:20 06/27/20 04:22 Morphine Sulfate 4 Mg/Ml Cartridge IVPUSH 4 mg Q4H PRN Administration Pain, Severe (Pain Scale 7-10) Omeprazole 20 mg 06/26/20 09:00 06/28/20 06:31 Omeprazole 20 Mg Capsule.Dr PO 20 mg BID@0630,1630 HUMBERTO Administration Ondansetron HCl 4 mg 06/26/20 08:16 Ondansetron Hcl 4 Mg/2 Ml Vial IVPUSH Q8H PRN Nausea and Vomiting Oxycodone HCl 5 mg 06/26/20 08:20 06/28/20 02:13 Oxycodone Hcl Immed Release 5 Mg Tablet PO 5 mg Q4H PRN Administration Pain, Moderate (Pain Scale 4-6 Oxycodone HCl 10 mg 06/27/20 16:03 Oxycodone Hcl Immed Release 5 Mg Tablet PO Q4H PRN Pain, Severe (Pain Scale 7-10) Sodium Chloride 3 ml 06/26/20 16:00 06/28/20 00:22 0.9 % Sodium Chloride Flush 3 Ml Syringe IVFLUSH Not Given QSHIFT HUMBERTO Tamsulosin HCl 0.4 mg 06/26/20 21:00 06/27/20 20:24 Tamsulosin Hcl 0.4 Mg Capsule PO 0.4 mg BEDTIME HUMBERTO Administration Verapamil HCl 100 mg 06/26/20 21:00 06/27/20 20:24 Verapamil Hcl Sr 100 Mg Cap24h.Pct PO 100 mg BEDTIME HUMBERTO Administration Protocol <Tawny Delgado PA-C - Last Filed: 06/28/20 07:59> Time Spent With Patient Time: Total time spent is greater than 50% in coordination of care (as documented) at patient's floor/unit and/or counseling patient: <Tawny Delgado PA-C - Last Filed: 06/28/20 07:59> Time with patient: 15 - 24 minutes <Tawny Delgado PA-C - Last Filed: 06/28/20 07:59>
[2020-06-28] MEDS: DULoxetine HCl 60 MG CAPSULE.DR PO (08:03)
[2020-06-28] MEDS: ARIPiprazole 2 MG TABLET PO (08:03)
[2020-06-28] MEDS: Fluticasone/Vilanterol 100/25 BLST.W.DEV 1 PUFF INHALE (08:17)
[2020-06-28] MEDS: Dorzolamide/Timolo 2.23%/0.68% 10 ML DRBTL 1 DROP EYE-BOTH ×2 (08:54→20:53)
--- NOTE | 2020-06-28 10:30 | HO.POSTANES ---
Post Anesthesia Evaluation Post Anesthesia Evaluation Vital Signs: Vital Signs Temp Pulse Resp BP Pulse Ox 06/28/20 07:22 98.0 F 75 30 H 108/66 94 06/28/20 03:46 97.1 F 80 18 120/71 96 06/27/20 23:48 98.2 F 76 24 H 117/66 96 Anesthesia: General Endotracheal-GETA Mental Status: Awake Pain Control: Satisfactory Nausea/Vomiting: None Hydration: Adequate Anesthesia-Related Issues: No Anes. Related Issues
--- NOTE | 2020-06-28 14:41 | P.DS_ITS ---
DS: Providers Provider Date of Service: 06/29/20 Date of admission: 06/26/20 08:17 Primary care physician: Unknown Physician DS: Diagnosis Discharge Diagnosis (1) Acute cholecystitis due to biliary calculus: Status: Acute (2) S/P laparoscopic cholecystectomy: Status: Acute Problem details: POD #2 DS: Medications Discharge Medications Home Medications: Home Medications Medication Instructions Recorded Confirmed albuterol sulfate [Ventolin HFA] 2 puff INHALATION Q4H PRN 06/22/20 06/26/20 budesonide-formoterol [Symbicort] 2 puff INHALATION BID 06/22/20 06/26/20 clonazepam 2 mg PO BEDTIME 06/22/20 06/26/20 dorzolamide-timolol [Cosopt] 1 drp OPHTHALMIC (EYE) BID 06/22/20 06/26/20 duloxetine [Cymbalta] 60 mg PO DAILY 06/22/20 06/26/20 glimepiride 1 mg PO DAILY 06/22/20 06/26/20 ketoconazole 1 appl TOPICAL 2XW PRN 06/22/20 06/26/20 loratadine 10 mg PO DAILY PRN 06/22/20 06/26/20 montelukast [Singulair] 10 mg PO BEDTIME 06/22/20 06/26/20 naltrexone 50 mg PO DAILY 06/22/20 06/26/20 omeprazole 20 mg PO BID 06/22/20 06/26/20 tamsulosin [Flomax] 0.4 mg PO BEDTIME 06/22/20 06/26/20 verapamil 100 mg PO BEDTIME 06/22/20 06/26/20 aripiprazole 2 mg PO DAILY 06/26/20 06/26/20 aspirin 81 mg PO DAILY 06/26/20 06/26/20 metformin 500 mg PO BID 06/26/20 06/26/20 rosuvastatin 40 mg PO DAILY 06/26/20 06/26/20 DS: Summary Hospital Course Hospital Course: BRIEF HPI: Milind Whitman is a 55 year old palauan speaking male with PMH including GERD, HLD, HTN, BRI, treated over the weekend at [facility] for abdominal pain. The patient was admitted 06/22/20 for abdominal pain, transaminitis. His abdominal pain resolved during the stay and his LFTs improved. Work up showed gallstones without signs of acute cholecystitis or biliary obstruction. His pain/transaminitis was felt to be parenchymal in nature or due to passed stone. Given his improvement and he was tolerating a solid diet, he was discharge to home yesterday with plan for outpatient surgical follow up. Last night, the patient ate soup and a burrito around 7pm and developed sharp, diffuse abdominal pain. He reports it is similar to the prior episode on Thursday. It is severe in nature. He denies nausea, vomiting, fevers or chills. Due to the severity and persistence of pain, he presented back to the ED for evaluation. ABD US was repeated and showed mild nonspecific wall thickening at the gallbladder without additional sonographic findings of acute cholecystitis, no gallstone seen but echogenic bile. LFTs continue to downtrend, alk phos remains around 137. WBC normal. HOSPITAL COURSE: The patient was admitted to the surgical service for further treatment of the symptomatic cholelithiasis versus acute cholecystitis. HIDA scan was obtained to further evaluate and showed nonvisualization the gallbladder consistent with acute cholecystitis. He was started on IV zosyn. It was recommended to proceed with laparoscopic cholecystectomy possible open given the HIDA scan results. He was added onto the OR schedule. On 06/27/20, a laparoscopic cholecystectomy was performed by Dr. Kit Ackerman without complication. The gallbladder had patches of gangrene and dense omental adhesions intraop. A jayant wells drain was placed. The patient tolerated the procedure well and was admitted back to [facility] for observation. He was continued on IV zosyn given the gangrene. The patient had an uncomplicated post operative course. He was doing well on POD #1. His pain had improved and he was comfortable. He was advanced to a solid diet. His LIDA drain was left in place. On POD #2, he continued to well and remained comfortable. He was tolerating a solid diet without nausea or vomiting. His abdominal exam was benign with clean incisions and appropriate post op tenderness. His LIDA drain had scanty serosanguineous drainage and was removed. He felt ready for discharge and was discharged to home on 06/29/20 in stable condition. He completed a 3 day course of IV zosyn. Status at Discharge Functional status at discharge: independent ambulation Overall status at discharge: patient is progressing back to baseline Time Spent with Patient Time attestation: Total time spent providing and/or coordinating discharge services: Discharge coordination time: Less than 30 minutes Physical Exam Vital Signs: Vital Signs: Last Vital Signs Temp 98.3 F 06/28/20 11:56 Pulse 78 06/28/20 11:56 Resp 28 H 06/28/20 11:56 BP 120/70 06/28/20 11:56 Pulse Ox 94 06/28/20 11:56 Body Mass Index 39.3 Const: General: comfortable, no acute distress and alert Orientation/consciousness: patient oriented x3 Eyes: Sclerae: sclerae normal Resp: Effort & Inspection: normal respiratory effort Cardio: Rate: regular rate GI: Inspection: Yes incision (clean) and Yes other (protuberant) Palpation (GI): Soft to palpation, Tenderness to palpation present (GI) (mild, incisional) and No Rebound tenderness present Skin: General skin exam: no rashes or lesions noted Neuro: General: patient oriented x3 Extrem: General: Yes no clubbing, cyanosis or edema DS: Data Data Completed and Pending Pending studies at discharge: Pending at discharge 06/27/20 14:00 Surgical [PTH] Routine Gallbladder, cholecystectomy: Acute gangrenous cholecystitis and cholelithiasis. Labs on day of discharge: Laboratory Tests 06/26/20 06/26/20 06/26/20 03:30 03:31 18:57 WBC 8.7 RBC 5.09 Hgb 14.9 Hct 46.2 MCV 90.8 MCH 29.3 MCHC 32.3 RDW 12.0 Plt Count 249 MPV 10.7 Immature Gran % (Auto) 0.6 H Neut % (Auto) 59.8 Lymph % (Auto) 26.9 [place] % (Auto) 10.9 Eos % (Auto) 1.3 Baso % (Auto) 0.5 Lymph # (Auto) 2.4 [place] # (Auto) 1.0 Eos # (Auto) 0.1 Baso # (Auto) 0.0 Abs Immat Gran (auto) 0.05 H Absolute Neuts (auto) 5.2 Absolute Nucleated RBC 0.000 Nucleated RBC % (auto) 0.0 Sodium 141 Potassium 4.0 Chloride 103 Carbon Dioxide 26 Anion Gap 16 BUN 13 Creatinine 0.97 Estim Creat Clear Calc 94.0 Estimated GFR > 60 POC Glucose 149 H Random Glucose 151 H D Fasting Glucose Calcium 9.5 Total Bilirubin 0.7 Direct Bilirubin 0.4 AST 39 H ALT 196 H Alkaline Phosphatase 136 H Total Protein 7.8 Albumin 4.7 Lipase 19 Blood Type Antibody Screen 06/27/20 06/27/20 05:22 09:50 WBC RBC Hgb Hct MCV MCH MCHC RDW Plt Count MPV Immature Gran % (Auto) Neut % (Auto) Lymph % (Auto) [place] % (Auto) Eos % (Auto) Baso % (Auto) Lymph # (Auto) [place] # (Auto) Eos # (Auto) Baso # (Auto) Abs Immat Gran (auto) Absolute Neuts (auto) Absolute Nucleated RBC Nucleated RBC % (auto) Sodium 141 Potassium 3.8 Chloride 108 Carbon Dioxide 20 L Anion Gap 17 BUN 9 Creatinine 1.12 Estim Creat Clear Calc 82.1 Estimated GFR > 60 POC Glucose Random Glucose Fasting Glucose 122 H Calcium 8.5 D Total Bilirubin 1.4 H Direct Bilirubin 0.9 H AST 24 ALT 114 H Alkaline Phosphatase 99 D Total Protein 6.7 Albumin 4.0 Lipase Blood Type O Positive Antibody Screen NEGATIVE Discharge Plan Discharge Anticipated Discharge Date/Time: 06/29/20 12:28 Patient Disposition: Home, Self-Care Referrals: Kit Ackerman MD [Physician] - 2 Weeks Physician,Unknown [Primary Care Provider] - Discharge Medications: New oxycodone-acetaminophen [Percocet] 5-325 mg tablet 1 - 2 tab PO Q4-6H PRN (Reason: pain (scale score 7-10)) Qty: 16 RF: 0 Continued metformin 500 mg tablet 500 mg PO BID RF: 0 aspirin 81 mg tablet,delayed release (DR/EC) 81 mg PO DAILY RF: 0 rosuvastatin 40 mg tablet 40 mg PO DAILY RF: 0 aripiprazole 2 mg tablet 2 mg PO DAILY RF: 0 glimepiride 1 mg Tablet 1 mg PO DAILY RF: 0 tamsulosin [Flomax] 0.4 mg Capsule 0.4 mg PO BEDTIME RF: 0 clonazepam 2 mg Tablet 2 mg PO BEDTIME RF: 0 omeprazole 20 mg Capsule,Delayed Release(Dr/Ec) 20 mg PO BID RF: 0 verapamil 100 mg Capsule, [address] 100 mg PO BEDTIME RF: 0 dorzolamide-timolol [Cosopt] 22.3-6.8 mg/mL Drops 1 drp OPHTHALMIC (EYE) BID RF: 0 montelukast [Singulair] 10 mg Tablet 10 mg PO BEDTIME RF: 0 albuterol sulfate [Ventolin HFA] 90 mcg/actuation Hfa Aerosol Inhaler 2 puff INHALATION Q4H PRN (Reason: Cough) RF: 0 duloxetine [Cymbalta] 60 mg Capsule,Delayed Release(Dr/Ec) 60 mg PO DAILY RF: 0 budesonide-formoterol [Symbicort] 80-4.5 mcg/actuation Hfa Aerosol Inhaler 2 puff INHALATION BID RF: 0 ketoconazole 2 % Shampoo 1 appl TOPICAL 2XW PRN (Reason: ITCHY SCALP) RF: 0 loratadine 10 mg Tablet 10 mg PO DAILY PRN (Reason: Allergy Symptoms) RF: 0 Held naltrexone 50 mg Tablet 50 mg PO DAILY RF: 0 Hold Instructions: Resume on 07/04/20. Until no longer requiring/taking percocet for pain. Discharge Orders: Discharge Order (Routine); Ordered 06/29/20 Ordered By: Tawny Delgado Diet: diabetic diet and low fat, low cholesterol Activity on Discharge: No heavy lifting Patient Instructions: Laparoscopic Cholecystectomy (DC) Activity Restrictions/Additional Instructions: If the incision area is tender, you may apply an ice pack for short intervals (No more than 20 minutes on, followed by at least 20 minutes off). Do not apply heat. Do not use creams, lotions, or topical antibiotics unless instructed to do so by your surgeon. These can cause infection or allergic reaction. Ok to shower. You have steri strips (small white cloth strips) covering your incision- these will fall off ~1 week. Call Your Doctor If: -Your temperature exceeds 101.5? F -You experience excessive pain or swelling -You have an unexpected reaction to medication -You have excessive bleeding -You experience continued vomiting/nausea -Your incision begins to separate -Your incision shows signs of infection such as increased redness, swelling, excessive pain, drainage (light blood or clear fluid is normal) or heat Visit Report Forms: Patient Portal Discharge page Care Plan Goals: Return to baseline health and activity following recovery period. Health Concerns: Hypertension, HLD, acute gangrenous cholecystitis s/p lap CCY Plan of Treatment: Discharge to home; f/u in office with Dr. Ackerman
[2020-06-28] MEDS: 0.9 % Sodium Chloride Flush 3 ML SYRINGE IVFLUSH ×2 (15:42→20:52)
[2020-06-28] MEDS: Montelukast Sodium 10 MG TABLET PO (20:53)
[2020-06-28] MEDS: Atorvastatin Calcium 80 MG TABLET PO (20:53)
[2020-06-28] MEDS: Tamsulosin HCL 0.4 MG CAPSULE PO (20:53)
[2020-06-29] MEDS: Piperacillin Sodium/Tazobactam 3.375 GM in 0.9 % Sodium Chloride 50 ML IV ×2 (00:23→09:03)
[2020-06-29] MEDS: oxyCODONE HCl Immed Release 5 MG TABLET PO (03:10)
[2020-06-29 03:44] VITALS: BP 132/76; PULSE 75; RESP 20; TEMP 37.3; O2SAT 94
[2020-06-29] MEDS: Omeprazole 20 MG CAPSULE.DR PO (05:19)
[2020-06-29 07:51] VITALS: BP 141/85; PULSE 81; RESP 18; TEMP 36.5; O2SAT 92
[2020-06-29 07:52] VITALS: PULSE 66; O2SAT 94
[2020-06-29] MEDS: Fluticasone/Vilanterol 100/25 BLST.W.DEV 1 PUFF INHALE (07:52)
[2020-06-29 07:54] LABS: Glucose, Whole Blood 130 mg/dL (60-115)
--- NOTE | 2020-06-29 08:08 | P.PNGS_ITS ---
Subjective Subjective Date of Service: 06/29/20 <Tawny Delgado PA-C - Last Filed: 06/29/20 08:15> 06/29/20 <Kit Ackerman MD - Last Filed: 06/29/20 13:26> Interval history: Feels better, pain well controlled. Tolerating solid diet. Wants to go home. <Tawny Delgado PA-C - Last Filed: 06/29/20 08:15> Physical Exam Vital Signs: Vital Signs: Last Vital Signs Temp 97.7 F 06/29/20 07:51 Pulse 81 06/29/20 07:51 Resp 18 06/29/20 07:51 BP 141/85 H 06/29/20 07:51 Pulse Ox 92 06/29/20 07:51 Body Mass Index 39.3 <ROMERO Ambrose Last Filed: 06/29/20 08:15> Const: General: comfortable, no acute distress and alert <Tawny Delgado PA-C - Last Filed: 06/29/20 08:15> Orientation/consciousness: patient oriented x3 <Tawny Delgado PA-C - Last Filed: 06/29/20 08:15> Eyes: Sclerae: sclerae normal <Tawny Delgado PA-C - Last Filed: 06/29/20 08:15> Resp: Effort & Inspection: normal respiratory effort <Tawny Delgado PA-C - Last Filed: 06/29/20 08:15> GI: Other: LIDA with scanty serosanguineous output- removed <Tawny Delgado PA-C - Last Filed: 06/29/20 08:15> Inspection: Yes incision (clean) and Yes other (protuberant) <ROMERO Corrigan Last Filed: 06/29/20 08:15> Palpation (GI): Soft to palpation, Tenderness to palpation present (GI) (mild, incisional), no guarding, not rigid and No Rebound tenderness present <ROMERO Ambrose Last Filed: 06/29/20 08:15> Skin: Other: normal color, warm and dry <ROMERO Ambrose Last Filed: 06/29/20 08:15> General skin exam: no rashes or lesions noted <Tawny Delgado PA-C - Last Filed: 06/29/20 08:15> Neuro: General: patient oriented x3 <Tawny Delgado PA-C - Last Filed: 06/29/20 08:15> Extrem: General: Yes no clubbing, cyanosis or edema <Tawny Delgado PA-C - Last Filed: 06/29/20 08:15> Progress Note: A&P Assessment and plan (1) Acute cholecystitis due to biliary calculus: Status: Acute <Tawny Delgado PA-C - Last Filed: 06/29/20 08:15> Assessment and Plan: S/P lap alison continues to do well tolerating diet no significant pain wants to go home LIDA dc'ed - scanty, old blood, no bile dc home seen and examined - agree with CASIMIRO Delgado <Kit Ackerman MD - Last Filed: 06/29/20 13:26> (2) S/P laparoscopic cholecystectomy: Problem details: POD #2 <Tawny Delgado PA-C - Last Filed: 06/29/20 08:15> Status: Acute <Tawny Delgado PA-C - Last Filed: 06/29/20 08:15> Assessment and Plan: Doing well, comfortable. VSS. Abd exam benign with appropriate post op tenderness. Incisions clean. LIDA scanty nonbilious drainage- removed. Patient stable and ready for discharge to home today. F/u in office with Dr. Ackerman in 2 weeks. <Tawny Delgado PA-C - Last Filed: 06/29/20 08:15> Fall Risk Details Current Medications: Current Medications Generic Name Dose Route Start Last Admin Trade Name Freq PRN Reason Stop Dose Admin Acetaminophen 650 mg 06/27/20 16:03 Acetaminophen 325 Mg Tablet PO Q6H PRN fever, abdominal pain Albuterol Sulfate 2 puff 06/26/20 08:24 Albuterol Sulfate 90 Mcg 8 Gm Inhaler INHALE Q4H PRN Shortness of Breath/Wheezing Aripiprazole 2 mg 06/27/20 09:00 06/28/20 08:03 Aripiprazole 2 Mg Tablet PO 2 mg DAILY HUMBERTO Administration Atorvastatin Calcium 80 mg 06/27/20 21:00 06/28/20 20:53 Atorvastatin Calcium 80 Mg Tablet PO 80 mg BEDTIME HUMBERTO Administration Docusate Sodium 100 mg 06/26/20 08:16 Docusate Sodium 100 Mg Capsule PO BID PRN Constipation Dorzolamide/Timolol 1 drop 06/27/20 09:00 06/28/20 20:53 Dorzolamide/Timolo 2.23%/0.68% 10 Ml Drbtl EYE-BOTH 1 drop BID HUMBERTO Administration Duloxetine HCl 60 mg 06/26/20 09:00 06/28/20 08:03 Duloxetine Hcl 60 Mg Capsule.Dr PO 60 mg DAILY HUMBERTO Administration Fluticasone/Vilanterol 1 puff 06/27/20 08:00 06/29/20 07:52 Fluticasone/Vilanterol 100/25 Blst.W.Dev INHALE 1 puff RDAILY HUMBERTO Administration Piperacillin Sod/Tazobactam 50 mls @ 100 mls/hr 06/27/20 08:00 06/29/20 01:08 Sod 3.375 gm/ Sodium Chloride IV Infused Q8H HUMBERTO Infusion Montelukast Sodium 10 mg 06/26/20 21:00 06/28/20 20:53 Montelukast Sodium 10 Mg Tablet PO 10 mg BEDTIME HUMBERTO Administration Morphine Sulfate 4 mg 06/26/20 08:20 06/27/20 04:22 Morphine Sulfate 4 Mg/Ml Cartridge IVPUSH 4 mg Q4H PRN Administration Pain, Severe (Pain Scale 7-10) Omeprazole 20 mg 06/26/20 09:00 06/29/20 05:19 Omeprazole 20 Mg Capsule.Dr PO 20 mg BID@0630,1630 HUMBERTO Administration Ondansetron HCl 4 mg 06/26/20 08:16 Ondansetron Hcl 4 Mg/2 Ml Vial IVPUSH Q8H PRN Nausea and Vomiting Oxycodone HCl 5 mg 06/26/20 08:20 06/29/20 03:10 Oxycodone Hcl Immed Release 5 Mg Tablet PO 5 mg Q4H PRN Administration Pain, Moderate (Pain Scale 4-6 Oxycodone HCl 10 mg 06/27/20 16:03 Oxycodone Hcl Immed Release 5 Mg Tablet PO Q4H PRN Pain, Severe (Pain Scale 7-10) Sodium Chloride 3 ml 06/26/20 16:00 06/28/20 20:52 0.9 % Sodium Chloride Flush 3 Ml Syringe IVFLUSH 3 ml QSHIFT HUMBERTO Administration Tamsulosin HCl 0.4 mg 06/26/20 21:00 06/28/20 20:53 Tamsulosin Hcl 0.4 Mg Capsule PO 0.4 mg BEDTIME HUMBERTO Administration Verapamil HCl 100 mg 06/26/20 21:00 06/28/20 20:53 Verapamil Hcl Sr 100 Mg Cap24h.Pct PO 100 mg BEDTIME HUMBERTO Administration Protocol <Tawny Delgado PA-C - Last Filed: 06/29/20 08:15> Time Spent With Patient Time: Total time spent is greater than 50% in coordination of care (as doc umented) at patient's floor/unit and/or counseling patient: <Tawny Delgado PA-C - Last Filed: 06/29/20 08:15> Time with patient: 15 - 24 minutes <Tawny Delgado PA-C - Last Filed: 06/29/20 08:15>
[2020-06-29] MEDS: DULoxetine HCl 60 MG CAPSULE.DR PO (09:03)
[2020-06-29] MEDS: ARIPiprazole 2 MG TABLET PO (09:04)
[2020-06-29] MEDS: 0.9 % Sodium Chloride Flush 3 ML SYRINGE IVFLUSH (09:04)
== END 2020-06-29 13:50 | disposition home or self-care (01) | DRG 419 ==
LOC: HO.ED 06-26 06:01 → HO.EDOVER 06-26 08:39 → HO.IMC 06-26 17:56
PROVIDERS: Physician Assistant Surgical; Admitting Provider Surgery; Emergency Provider Emergency Medicine; Visit Provider Surgery
PROC: 0FT44ZZ Resection of Gallbladder, Percutaneous Endoscopic Approach (ICD-10-PCS; CPT 47562; principal; 2020-06-27 11:30)
DX: K80.00 Calculus of gallbladder with acute cholecystitis without obstruction (principal); K82.8 Other specified diseases of gallbladder; K66.0 Peritoneal adhesions (postprocedural) (postinfection); K82.A1 Gangrene of gallbladder in cholecystitis; E66.01 Morbid (severe) obesity due to excess calories; Z68.39 Body mass index [BMI] 39.0-39.9, adult; Z79.82 Long term (current) use of aspirin; Z79.899 Other long term (current) drug therapy
CPT/HCPCS: 36415; 76705; 78226; 80048; 80076; 82947; 83690; 85025; 86850; 86900; 86901; 88304; 93005; 96361; 96374; 96375; 99285; A9537; J1100; J1170; J1885; J2250; J2270; J2405; J2543; J3010

== ENCOUNTER → 2020-07-04 10:49 | Outpatient (BNVA) | payer MEDICARE, MEDICAID, SELFPAY | PROVIDERS: Visit Provider Surgery | DX: Z90.49 Acquired absence of other specified parts of digestive tract (principal) | CPT/HCPCS: 99212 ==

== ENCOUNTER → 2020-08-06 13:31 | Outpatient (BNVA) | payer MEDICARE, MEDICAID, SELFPAY | PROVIDERS: Visit Provider Surgery | DX: Z90.49 Acquired absence of other specified parts of digestive tract (principal) | CPT/HCPCS: 99212 ==

== ENCOUNTER 2022-05-29 10:26 | Emergency (ER) | payer OTHER, SELFPAY ==
[2022-05-29 10:45] VITALS: BP 131/71; BP 133/81; PULSE 100; PULSE 110; RESP 34; TEMP 37.8; O2SAT 97; O2SAT 98; BMI 39.6
[2022-05-29 11:49] LABS: Influenza A PCR POSITIVE (Negative); Influenza B PCR NEGATIVE (Negative); Resp Syncy Virus RNA Qual PCR NEGATIVE (Negative); SARS COV2 PCR INHOUSE NEGATIVE (Negative)
--- NOTE | 2022-05-29 13:29 | ED.GENADULT ---
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 He reports positive sick contact from his kids. Patient does report that he went to stand up from bed and ?passed out? but did not hit his head. Related Data Home Medications Medication Instructions Recorded Confirmed albuterol sulfate 90 mcg/actuation 2 puff inhalation Q4H PRN Cough 06/22/20 04/23/22 aerosol inhaler (Ventolin HFA) budesonide-formoterol HFA 80 2 puff inhalation BID 06/22/20 04/23/22 mcg-4.5 mcg/actuation aerosol inhaler (Symbicort) clonazepam 2 mg tablet 2 mg PO BEDTIME 06/22/20 04/23/22 dorzolamide 22.3 mg-timolol 6.8 1 drp ophthalmic (eye) BID 06/22/20 04/23/22 mg/mL eye drops (Cosopt) duloxetine 60 mg capsule,delayed 60 mg PO DAILY 06/22/20 04/23/22 release (Cymbalta) glimepiride 1 mg tablet 1 mg PO DAILY 06/22/20 04/23/22 ketoconazole 2 % shampoo 1 appl topical 2XW PRN ITCHY SCALP 06/22/20 08/06/20 loratadine 10 mg tablet 10 mg PO DAILY PRN Allergy Symptoms 06/22/20 04/23/22 montelukast 10 mg tablet 10 mg PO BEDTIME 06/22/20 04/23/22 (Singulair) naltrexone 50 mg tablet 50 mg PO DAILY 06/22/20 08/06/20 omeprazole 20 mg capsule,delayed 20 mg PO BID 06/22/20 04/23/22 release tamsulosin 0.4 mg capsule (Flomax) 0.4 mg PO BEDTIME 06/22/20 04/23/22 verapamil 100 mg capsule 24hr 100 mg PO BEDTIME 06/22/20 04/23/[address],ext.release aripiprazole 2 mg tablet 2 mg PO DAILY 06/26/20 08/06/20 aspirin 81 mg tablet,delayed 81 mg PO DAILY 06/26/20 04/23/22 release metformin 500 mg tablet 500 mg PO BID 06/26/20 04/23/22 rosuvastatin 40 mg tablet 40 mg PO DAILY 06/26/20 04/23/22 fluticasone 250 mcg-salmeterol 50 1 inh inhalation BID 04/23/22 04/23/22 mcg/dose blistr powdr for inhalation ketorolac 0.5 % eye drops 1 drp ophthalmic (eye) BID 04/23/22 04/23/22 ropinirole 0.5 mg tablet 0.5 mg PO BEDTIME 04/23/22 04/23/22 trazodone 150 mg tablet 150 mg PO BEDTIME PRN 04/23/22 04/23/22 Previous Rx's Medication Instructions Recorded oxycodone-acetaminophen 5 mg-325 1 - 2 tab PO Q4-6H PRN pain (scale 06/29/20 mg tablet (Percocet) score 7-10) #16 tabs ibuprofen 600 mg tablet 600 mg PO TID PRN pain #30 tabs 07/02/20 oxycodone-acetaminophen 5 mg-325 1 tab PO Q4-6H PRN pain #30 tabs 07/02/20 mg tablet (Percocet) prednisone 20 mg tablet 60 mg PO DAILY #9 tabs 04/23/22 benzonatate 200 mg capsule 200 mg PO BID PRN cough #14 caps 05/29/22 Allergies Allergy/AdvReac Type Severity Reaction Status Date / Time olanzapine [From ZYPREXA] Allergy Unknown UNKNOWN Verified 04/23/22 16:29 mirtazapine [From REMERON] AdvReac Unknown PAIN IN Verified 04/23/22 16:29 LEGS sertraline [From ZOLOFT] AdvReac Unknown ANXIETY Verified 04/23/22 16:29 gabapentin AdvReac Unknown Verified 05/29/22 10:52 metformin AdvReac Unknown Verified 05/29/22 10:52 Review of Systems Review of Systems: Pertinent positives and negatives as stated in HPI 10 point review of systems is otherwise negative. [facility] Past Medical History Source: nursing notes reviewed Medical History Alcohol abuse Anxiety Asthma Diverticulosis GERD (gastroesophageal reflux disease) Hyperlipidemia Hypertension BRI (obstructive sleep apnea) Suicidal ideation Surgical History History of laparoscopic cholecystectomy Social History Social History Household Members: Significant Other Housing: Apartment Do you presently have visiting nurse or other home services: No Alcohol intake: current Alcohol intake frequency: a few times a month Advance Directives: No Advance Directives Information Provided: Yes service: No Current occupational status: disabled Physical Exam ED Vital Signs: Vital Signs - 24 hr 05/29/22 10:45 Temperature 100.1 F Pulse Rate 100 Respiratory Rate 34 H Blood Pressure 131/71 Pulse Oximetry 97 Oxygen Delivery Method Room Air BMI result Body Mass Index 39.6 VITAL SIGNS: Reviewed. GENERAL: Well developed, well nourished, in no acute distress. HEAD: Normocephalic/atraumatic EYES: PERRLA, EOMI EARS: Ext canals without abnormality, TMs non-bulging and non-erythematous NOSE: Nares patent bilateral OROPHARYNX: no oral lesions noted, posterior pharynx clear and non-erythematous without noted tonsillar enlargement/erythema/exudates NECK: Supple, no adenopathy LUNGS: Normal breath sounds, no wheeze/rhonchi/rales. SpO2<97> CARDIOVASCULAR: Regular rate and rhythm without noted murmurs, no JVD or lower extremity edema. ABDOMEN: Soft, non-tender, non-distended with bowel sounds. MUSCULOSKELETAL: No tenderness, deformities, or effusions noted on gross inspection. EXTREMITIES: No cyanosis, clubbing or edema. SKIN: Inspection of the skin reveals no rashes NEUROLOGIC: Alert and oriented x 4. Strength and sensation to light touch were grossly intact x 4. Course Course Course Narrative: 57-year-old male with history and clinical presentation inconsistent with syncopal episode, patient is oxygenating well and is afebrile. On review viral testing he is noted to be flu positive but is out of the window for initiation of Tamiflu. He is otherwise discharged home after receiving combination analgesics with instructions to remain well hydrated and continue with [id number] Tylenol/ibuprofen. Medical Decision Making Lab Data Labs: Lab Results 05/29/22 Range/Units 11:02 Influenza Type A (PCR) POSITIVE A (Negative) Influenza Type B (PCR) NEGATIVE (Negative) RSV RNA Qual (PCR) NEGATIVE (Negative) SARS-CoV-2 RNA (RT-PCR) NEGATIVE (Negative) Discharge Plan Discharge Clinical Impression: Viral syndrome, Influenza A Patient Disposition: Home, Self-Care Instructions: Influenza (ED), Viral Syndrome (ED) Additional Instructions: 1. Reanudar todos los medicamentos caseros seg?n lo prescrito. Mant?ngase ovidio hidratado con agua. Recomiende Tylenol/ibuprofeno de venta babak seg?n sea necesario para cale corporales, molestias en la pared tor?cica, cale de jennifer. 2. Le he dado kiley receta para medicamentos para la tos. 3. Seguimiento con craig proveedor de atenci?n primaria en los pr?ximos 1 a 2 d?as para kiley reevaluaci?n y manejo ambulatorio adicional Regrese a la sara de emergencias si los s?ntomas empeoran. 1. Resume all home medications as prescribed. Remain well hydrated with water. Recommend [id number] Tylenol/ibuprofen as needed for body aches, chest wall discomfort, headaches. 2. I have provided you with a prescription for cough medication. 3. Follow-up with your primary care provider in the next 1-2 days for re-evaluation and further outpatient management Return to the ER for worsening symptoms. Prescriptions: New benzonatate 200 mg capsule 200 mg PO BID PRN (Reason: cough) Qty: 14 0RF No Action oxycodone-acetaminophen [Percocet] 5-325 mg tablet 1 tab PO Q4-6H PRN (Reason: pain) Qty: 30 0RF ibuprofen 600 mg tablet 600 mg PO TID PRN (Reason: pain) Qty: 30 1RF metformin 500 mg tablet 500 mg PO BID aspirin 81 mg tablet,delayed release (DR/EC) 81 mg PO DAILY rosuvastatin 40 mg tablet 40 mg PO DAILY aripiprazole 2 mg tablet 2 mg PO DAILY oxycodone-acetaminophen [Percocet] 5-325 mg tablet 1 - 2 tab PO Q4-6H PRN (Reason: pain (scale score 7-10)) Qty: 16 0RF glimepiride 1 mg Tablet 1 mg PO DAILY tamsulosin [Flomax] 0.4 mg Capsule 0.4 mg PO BEDTIME clonazepam 2 mg Tablet 2 mg PO BEDTIME omeprazole 20 mg Capsule,Delayed Release(Dr/Ec) 20 mg PO BID verapamil 100 mg Capsule, [address] 100 mg PO BEDTIME dorzolamide-timolol [Cosopt] 22.3-6.8 mg/mL Drops 1 drp OPHTHALMIC (EYE) BID montelukast [Singulair] 10 mg Tablet 10 mg PO BEDTIME albuterol sulfate [Ventolin HFA] 90 mcg/actuation Hfa Aerosol Inhaler 2 puff INHALATION Q4H PRN (Reason: Cough) duloxetine [Cymbalta] 60 mg Capsule,Delayed Release(Dr/Ec) 60 mg PO DAILY budesonide-formoterol [Symbicort] 80-4.5 mcg/actuation Hfa Aerosol Inhaler 2 puff INHALATION BID ketoconazole 2 % Shampoo 1 appl TOPICAL 2XW PRN (Reason: ITCHY SCALP) naltrexone 50 mg Tablet 50 mg PO DAILY Hold Instructions: Resume on 07/04/20. Until no longer requiring/taking percocet for pain. loratadine 10 mg Tablet 10 mg PO DAILY PRN (Reason: Allergy Symptoms) ropinirole 0.5 mg tablet 0.5 mg PO BEDTIME Rx Instructions: administer 1-3 hours before bedtime trazodone 150 mg tablet 150 mg PO BEDTIME PRN fluticasone propion-salmeterol 250-50 mcg/dose blister with device 1 inh inhalation BID ketorolac 0.5 % drops 1 drp ophthalmic (eye) BID prednisone 20 mg tablet 60 mg PO DAILY Qty: 9 0RF Print Language: Cymraes
[2022-05-29] MEDS: Acetaminophen 325 MG TABLET 975 MG PO (13:37)
[2022-05-29] MEDS: Ibuprofen 400 MG TABLET PO (13:37)
[2022-05-29] MEDS: Benzonatate 100 MG CAPSULE 200 MG PO (13:37)
== END 2022-05-29 14:04 | disposition home or self-care (01) ==
PROVIDERS: Emergency Provider Student in an Organized Health Care Education/Training Program
DX: B34.9 Viral infection, unspecified (principal); R42 Dizziness and giddiness; J10.1 Influenza due to other identified influenza virus with other respiratory manifestations; R05.9 Cough, unspecified; M79.10 Myalgia, unspecified site; Z20.822 Contact with and (suspected) exposure to COVID-19; Z79.899 Other long term (current) drug therapy
CPT/HCPCS: 0241U; 99283; 99284

== ENCOUNTER 2023-01-20 01:35 | Emergency (ER) | payer OTHER, SELFPAY ==
[2023-01-20] VITALS (10 sets, daily range): BP systolic 121–170; BP diastolic 79–98; PULSE 78–105; RESP 16–18; TEMP 36.4–36.9; O2SAT 93–99; BMI 38.3
--- NOTE | 2023-01-20 02:20 | ED.PSYCH ---
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 He drank tonight and is asking for help. He has no medical complaints. MD complaint: suicidal ideation, feels depressed, homicidal ideation and anxiety Onset (ago): week(s) Duration: getting worse History of same: Yes Relieving factors: none Exacerbating factors: alcohol Context: recent alcohol abuse and significant life stressor Associated psychiatric symptoms: depression, suicidal ideation and homicidal ideation Associated symptoms: denies other symptoms Treatments prior to arrival: placed on mental health hold If self harm: admits thoughts of self harm Related Data Home Medications Medication Instructions Recorded Confirmed albuterol sulfate 90 mcg/actuation 2 puff inhalation Q4H PRN Cough 06/22/20 04/23/22 aerosol inhaler (Ventolin HFA) budesonide-formoterol HFA 80 2 puff inhalation BID 06/22/20 04/23/22 mcg-4.5 mcg/actuation aerosol inhaler (Symbicort) clonazepam 2 mg tablet 2 mg PO BEDTIME 06/22/20 04/23/22 dorzolamide 22.3 mg-timolol 6.8 1 drp ophthalmic (eye) BID 06/22/20 04/23/22 mg/mL eye drops (Cosopt) duloxetine 60 mg capsule,delayed 60 mg PO DAILY 06/22/20 04/23/22 release (Cymbalta) glimepiride 1 mg tablet 1 mg PO DAILY 06/22/20 04/23/22 ketoconazole 2 % shampoo 1 appl topical 2XW PRN ITCHY SCALP 06/22/20 08/06/20 loratadine 10 mg tablet 10 mg PO DAILY PRN Allergy Symptoms 06/22/20 04/23/22 montelukast 10 mg tablet 10 mg PO BEDTIME 06/22/20 04/23/22 (Singulair) naltrexone 50 mg tablet 50 mg PO DAILY 06/22/20 08/06/20 omeprazole 20 mg capsule,delayed 20 mg PO BID 06/22/20 04/23/22 release tamsulosin 0.4 mg capsule (Flomax) 0.4 mg PO BEDTIME 06/22/20 04/23/22 verapamil 100 mg capsule 24hr 100 mg PO BEDTIME 06/22/20 04/23/[address],ext[address]release aripiprazole 2 mg tablet 2 mg PO DAILY 06/26/20 08/06/20 aspirin 81 mg tablet,delayed 81 mg PO DAILY 06/26/20 04/23/22 release metformin 500 mg tablet 500 mg PO BID 06/26/20 04/23/22 rosuvastatin 40 mg tablet 40 mg PO DAILY 06/26/20 04/23/22 fluticasone 250 mcg-salmeterol 50 1 inh inhalation BID 04/23/22 04/23/22 mcg/dose blistr powdr for inhalation ketorolac 0.5 % eye drops 1 drp ophthalmic (eye) BID 04/23/22 04/23/22 ropinirole 0.5 mg tablet 0.5 mg PO BEDTIME 04/23/22 04/23/22 trazodone 150 mg tablet 150 mg PO BEDTIME PRN 04/23/22 04/23/22 Previous Rx's Medication Instructions Recorded oxycodone-acetaminophen 5 mg-325 1 - 2 tab PO Q4-6H PRN pain (scale 06/29/20 mg tablet (Percocet) score 7-10) #16 tabs ibuprofen 600 mg tablet 600 mg PO TID PRN pain #30 tabs 07/02/20 oxycodone-acetaminophen 5 mg-325 1 tab PO Q4-6H PRN pain #30 tabs 07/02/20 mg tablet (Percocet) prednisone 20 mg tablet 60 mg PO DAILY #9 tabs 04/23/22 benzonatate 200 mg capsule 200 mg PO BID PRN cough #14 caps 05/29/22 Allergies Allergy/AdvReac Type Severity Reaction Status Date / Time olanzapine [From ZYPREXA] Allergy Unknown UNKNOWN Verified 04/23/22 16:29 mirtazapine [From REMERON] AdvReac Unknown PAIN IN Verified 04/23/22 16:29 LEGS sertraline [From ZOLOFT] AdvReac Unknown ANXIETY Verified 04/23/22 16:29 gabapentin AdvReac Unknown Verified 05/29/22 10:52 metformin AdvReac Unknown Verified 05/29/22 10:52 Review of Systems Review of Systems: Constitutional : No Fever, No Chills ENT/Mouth : No Ear Pain, No Nasal Congestion, No sore throat Eyes: No Eye Pain, No Swelling, No Redness Cardiovascular : No Chest Pain, No SOB Respiratory : No Cough, No Sputum, No Dyspnea Gastrointestinal : No Nausea, No Vomiting, No Diarrhea, No Hematochezia, No Melena Genitourinary : No Dysuria, No Urinary Frequency, No Hematuria Musculoskeletal : No Myalgias Skin : No Skin Lesions, No rash Neuro : No Weakness, No Numbness, No Paresthesias, No Dizziness, No Headache Psych : positive Anxiety, positive Depression, positive SI/HI Heme/Lymph: No Lymphadenopathy Endocrine : No Polyuria, No Polydipsia All other systems reviewed and are negative [facility] Past Medical History Attestation statement: The following information was validated with the patient. Medical History Alcohol abuse Anxiety Asthma Diverticulosis GERD (gastroesophageal reflux disease) Hyperlipidemia Hypertension BRI (obstructive sleep apnea) Suicidal ideation Surgical History History of laparoscopic cholecystectomy Social History Social History Household Members: Significant Other Housing: Apartment Do you presently have visiting nurse or other home services: No Alcohol intake: current Alcohol intake frequency: a few times a month Advance Directives: No Advance Directives Information Provided: Yes service: No Current occupational status: disabled Physical Exam Vital Signs: Vital Signs: Last Vital Signs Temp 98.4 F 01/20/23 01:38 Pulse 105 H 01/20/23 01:38 Resp 16 01/20/23 01:38 BP 170/80 H 01/20/23 01:38 Pulse Ox 96 01/20/23 01:38 BMI result Body Mass Index 38.3 Appearance: Alert. Oriented X3. No acute distress. cooperative Eyes: Pupils equal, round and reactive to light. ENT: Pharynx normal. Neck: Normal inspection. Neck supple. CVS: Normal heart rate and rhythm. Pulses normal. Respiratory: No respiratory distress. Breath sounds normal. Abdomen: Soft and nontender. Skin: Skin warm and dry. Normal skin color. Normal skin turgor. Extremities: No lower extremity edema. Neuro: Oriented X 3. No motor deficit. No sensory deficit. CN2-12 intact Course Course Course Narrative: Physician observation started at 336am Patient placed in physician observation because the patient needed more time for CARE team to asses the need for psych admission. At the time observation was started the patient's vitals were stable, patient is alert and oriented, Neuro: nonfocal, CV RRR, Lungs clear Medications Administered Discontinued Medications Generic Name Dose Route Start Last Admin Trade Name Terrell PRN Reason Stop Dose Admin Lorazepam 2 mg 01/20/23 02:31 01/20/23 03:19 Lorazepam 1 Mg Tablet PO 01/20/23 02:32 2 mg ONCE ONE Administration Medical Decision Making Medical Decision Making MDM Narrative: 57 yo male with hx of DM, depression, HTN here with c/o SI and vague HI no medical complaints did drink tonight at this time given his threats of SI and passive HI will start on PO ativan for anxiety labs and S12 him until he sees care team. Differential Diagnosis Differential Diagnoses: The differential diagnosis associated with the presentation includes intoxication, SI/HI, depression Admission/Observation Consideration of admission/observation: Escalation of care including admission/observation considered Consult Healthcare Provider Management of the patient was discussed with: Behavioral Health Provider Lab Data [facility] Lab Attestation statement: I reviewed the patient's lab results. 01/20/23 03:05 01/20/23 03:05 Labs: Lab Results 01/20/23 01/20/23 Range/Units 03:05 03:05 WBC 5.6 (4.8-10.8) X10*3/uL RBC 4.90 (4.60-5.80) X10*6/uL Hgb 14.5 (14.0-18.0) g/dl Hct 43.3 (42.0-52.0) % MCV 88.4 (80.0-98.0) fL MCH 29.6 (27.0-33.0) pg MCHC 33.5 (31.0-36.0) g/dl RDW 12.7 (11.0-16.0) % Plt Count 265 (160-400) X10*3/uL MPV 9.5 (9.4-12.4) fL Immature Gran % (Auto) 0.4 (0.0-0.4) % Neut % (Auto) 21.9 L (45-73) % Lymph % (Auto) 64.1 H (20-40) % [place] % (Auto) 11.4 H (2-11) % Eos % (Auto) 1.1 (0-4) % Baso % (Auto) 1.1 (0-2) % Lymph # (Auto) 3.6 (1.2-4.9) X10*3/uL [place] # (Auto) 0.6 (0.1-1.2) X10*3/uL Eos # (Auto) 0.1 (0.0-0.4) X10*3/uL Baso # (Auto) 0.1 (0.0-0.2) X10*3/uL Abs Immat Gran (auto) 0.02 (0.00-0.03) X10*3/uL Absolute Neuts (auto) 1.2 L (2.0-8.3) x10*3/uL Absolute Nucleated RBC 0.000 (0.0-0.012) X10*3/uL Nucleated RBC % (auto) 0.0 (0.0-0.2) /100WBC Smear Tech's Comments VERIFIED Sodium 143 (135-145) mmol/L Potassium 4.2 (3.3-5.1) mmol/L Chloride 109 H (96-108) mmol/L Carbon Dioxide 24 (22-29) mmol/L Anion Gap 14 (12-20) BUN 10 (9-16) mg/dL Creatinine 1.05 (0.5-1.4) mg/dL Estim Creat Clear Calc 84.2 Estimated GFR > 60 Random Glucose 156 H (60-115) mg/dL Calcium 9.0 (8.4-10.2) mg/dL Magnesium 2.4 (1.6-2.6) mg/dL Total Bilirubin 0.3 (0.0-1.0) mg/dL Direct Bilirubin 0.2 (0.0-0.5) mg/dL AST 69 H (5-37) U/L ALT 53 H (0-40) U/L Alkaline Phosphatase 63 (39-117) U/L Total Protein 8.2 H (6.5-8.0) g/dL Albumin 4.6 (3.5-5.0) g/dL Ethyl Alcohol 261 mg/dL External Record Review External record reviewed: Inpatient record Social Determinants Patient?s care significantly limited by Social Determinants of Health including: Problems related to primary support group Discharge Plan Discharge Clinical Impression: Suicidal ideation, Alcohol intoxication Patient Disposition: Still a Patient Prescriptions: No Action oxycodone-acetaminophen [Percocet] 5-325 mg tablet 1 tab PO Q4-6H PRN (Reason: pain) Qty: 30 0RF ibuprofen 600 mg tablet 600 mg PO TID PRN (Reason: pain) Qty: 30 1RF metformin 500 mg tablet 500 mg PO BID aspirin 81 mg tablet,delayed release (DR/EC) 81 mg PO DAILY rosuvastatin 40 mg tablet 40 mg PO DAILY aripiprazole 2 mg tablet 2 mg PO DAILY oxycodone-acetaminophen [Percocet] 5-325 mg tablet 1 - 2 tab PO Q4-6H PRN (Reason: pain (scale score 7-10)) Qty: 16 0RF glimepiride 1 mg Tablet 1 mg PO DAILY tamsulosin [Flomax] 0.4 mg Capsule 0.4 mg PO BEDTIME clonazepam 2 mg Tablet 2 mg PO BEDTIME omeprazole 20 mg Capsule,Delayed Release(Dr/Ec) 20 mg PO BID verapamil 100 mg Capsule, [address] 100 mg PO BEDTIME dorzolamide-timolol [Cosopt] 22.3-6.8 mg/mL Drops 1 drp OPHTHALMIC (EYE) BID montelukast [Singulair] 10 mg Tablet 10 mg PO BEDTIME albuterol sulfate [Ventolin HFA] 90 mcg/actuation Hfa Aerosol Inhaler 2 puff INHALATION Q4H PRN (Reason: Cough) duloxetine [Cymbalta] 60 mg Capsule,Delayed Release(Dr/Ec) 60 mg PO DAILY budesonide-formoterol [Symbicort] 80-4.5 mcg/actuation Hfa Aerosol Inhaler 2 puff INHALATION BID ketoconazole 2 % Shampoo 1 appl TOPICAL 2XW PRN (Reason: ITCHY SCALP) naltrexone 50 mg Tablet 50 mg PO DAILY Hold Instructions: Resume on 07/04/20. Until no longer requiring/taking percocet for pain. loratadine 10 mg Tablet 10 mg PO DAILY PRN (Reason: Allergy Symptoms) benzonatate 200 mg capsule 200 mg PO BID PRN (Reason: cough) Qty: 14 0RF ropinirole 0.5 mg tablet 0.5 mg PO BEDTIME Rx Instructions: administer 1-3 hours before bedtime trazodone 150 mg tablet 150 mg PO BEDTIME PRN fluticasone propion-salmeterol 250-50 mcg/dose blister with device 1 inh inhalation BID ketorolac 0.5 % drops 1 drp ophthalmic (eye) BID prednisone 20 mg tablet 60 mg PO DAILY Qty: 9 0RF
--- NOTE | 2023-01-20 02:38 | PC.NURSE ---
Pt is a 57 y/o male who presents via EMS for evaluation of increasing anxiety and depression along with thoughts of harming himself and possibly others. Pt reports, if provoked, he will be violent. Pt is [place] speaking only and struggles significantly understanding, reading and writing Urdu. Pt presents calm and cooperative, but is very erratic with emotions and intermittently crying. Denies any other medical complaints, including recent illness/fever and any trauma. No abd pain, chest pain, or shortness of breath. Non compliant with all medications because he reports not understanding how to take them or when to take them. He reports feeling overwhelmed and lost with stuff. [place] living in [place] above [place] bar and never gets any piece, there is constant activity and noise. Food and fluid is WNL for pt and there is no problem with voiding. Was in-patient here approximately 1 month ago, and in-patient in [place] about 1 year ago. Does see a counselor and a Psychiatrist twice a month. Does consume alcohol occasionally, but denies any illicit drug use.
[2023-01-20 03:12] LABS: Basophils Absolute Auto 0.1 X10*3/uL (0.0-0.2); Basophils Percent Auto 1.1 % (0-2); Eosinophils Absolute Auto 0.1 X10*3/uL (0.0-0.4); Eosinophils Percent Auto 1.1 % (0-4); Hematocrit 43.3 % (42.0-52.0); Hemoglobin 14.5 g/dl (14.0-18.0); Imm Gran Abs Auto 0.02 X10*3/uL (0.00-0.03); Imm Gran Pct Auto 0.4 % (0.0-0.4); Lymphocytes Absolute Auto 3.6 X10*3/uL (1.2-4.9); Lymphocytes Percent Auto 64.1 % (20-40); MANUAL DIFF FLAG SCAN; Mean Corpuscular HGB Conc 33.5 g/dl (31.0-36.0); Mean Corpuscular Hemoglobin 29.6 pg (27.0-33.0); Mean Corpuscular Volume 88.4 fL (80.0-98.0); Mean Platelet Volume 9.5 fL (9.4-12.4); Monocytes Absolute Auto 0.6 X10*3/uL (0.1-1.2); Monocytes Percent Auto 11.4 % (2-11); Neutrophils Absolute Auto 1.2 x10*3/uL (2.0-8.3); Neutrophils Percent Auto 21.9 % (45-73); Platelet Count 265 X10*3/uL (160-400); Red Cell Distribution Width 12.7 % (11.0-16.0); SCAN SMEAR FLAG 1; White Blood Count 5.6 X10*3/uL (4.8-10.8)
[2023-01-20] MEDS: LORazepam 1 MG TABLET 2 MG PO ×2 (03:19→16:32)
[2023-01-20 03:24] LABS: Alanine Aminotransferase 53 U/L (0-40); Albumin Level 4.6 g/dL (3.5-5.0); Alkaline Phosphatase 63 U/L (39-117); Anion Gap 14 (12-20); Aspartate Amino Transferase 69 U/L (5-37); Bilirubin Direct 0.2 mg/dL (0.0-0.5); Bilirubin Total 0.3 mg/dL (0.0-1.0); Blood Urea Nitrogen 10 mg/dL (9-16); Carbon Dioxide 24 mmol/L (22-29); Chloride 109 mmol/L (96-108); Creatinine Clr Calc Pharmacy 84.2; Estimated Glomerular Filt Rate > 60; Ethanol 261 mg/dL; Glucose Random 156 mg/dL (60-115); Magnesium 2.4 mg/dL (1.6-2.6); Potassium 4.2 mmol/L (3.3-5.1); Sodium 143 mmol/L (135-145); Total Protein 8.2 g/dL (6.5-8.0)
[2023-01-20 03:31] LABS: SLIDE REVIEW VERIFIED
[2023-01-20] MEDS: HaloperidoL 5 MG TABLET PO ×2 (05:04→16:32)
[2023-01-20 08:06] LABS: Appearance Urine Clear; Color Urine Yellow; Glucose Urine UA Negative (Negative); Leukocyte Esterase Urine Negative (Negative); Nitrite Urine Negative (Negative); PH 5.5 (5.0-9.0); Urine Blood Negative (Negative); Urine Ketones Negative (Negative); Urine Protein Negative (Neg-Trace)
[2023-01-20 08:33] LABS: Amphetamine Screen Urine Not Detected (Not Detect); Barbiturates, Urine Not Detected (Not Detect); Benzodiazepines Screen Urine Not Detected (Not Detect); Cannabinoid Screen Urine Not Detected (Not Detect); Cocaine Screen Urine POSITIVE (Not Detect); Fentanyl, urine Not Detected (Not Detect); Opiate Screen Urine Not Detected (Not Detect); Phencyclidine Screen Urine Not Detected (Not Detect)
--- NOTE | 2023-01-20 10:00 | PC.NURSE ---
pt a&ox3, vss, pt verbalizing no pain. pt remaining calm and cooperative. resting with the lights dimmed. sitter present. call donahue placed within reach. will continue to monitor.
--- NOTE | 2023-01-20 11:50 | PC.NURSE ---
care team called about patient they were asked if they knew of a time that the patient will be seen by them, at this time they are unsure when they will be able to see him
--- NOTE | 2023-01-20 12:48 | PC.NURSE ---
pt requesting to go home but still has not seen care team.
--- NOTE | 2023-01-20 15:36 | PC.NURSE ---
pt a&ox3, vss, pt verbalizing 0/10 pain. denies SI/HI at this time. pt's daughter called on the phone to get an update on pt - daughter states that she will be visiting pt in the ED shortly. sitter present. call donahue placed within reach.
--- NOTE | 2023-01-20 16:34 | PC.NURSE ---
medication administered per provider order. tech/sitter states that pt became increasingly anxious and started having a panic attack. tech realized that pt was becoming increasingly shaky and started crying out of nowhere. tech also asked if there was something that triggered this feeling/sensation - pt denies. pt denies SI/HI at this time. call donahue placed within reach. 1:1 sitter present. will reassess anxiety level shortly and will continue to monitor.
--- NOTE | 2023-01-20 17:15 | PHA.MEDREC ---
Pharmacy Consult ? Medication Reconciliation Pharmacy has completed the medication reconciliation. patient unsure of medications. he was able to recognize the name of medications based off claim history. Joellen Ramon, TulioD
--- NOTE | 2023-01-20 17:53 | PC.NURSE ---
pt verbalizing that he wants to take a nap. pt states that he uses cpap machine at home. this nurse gave pt 2L O2 via nasal cannula for support.
--- NOTE | 2023-01-20 20:04 | PC.NURSE ---
pt a&ox3, vss, pt resting comfortably with the lights dimmed. 1:1 sitter present bedside. call donahue placed within reach. will continue to monitor.
[2023-01-20] MEDS: traZODone HCL 50 MG TABLET 150 MG PO (23:14)
[2023-01-20] MEDS: clonazePAM 1 MG TABLET 2 MG PO (23:15)
[2023-01-20] MEDS: Omeprazole 20 MG CAPSULE.DR PO (23:16)
[2023-01-20] MEDS: rOPINIRole HCL 0.5 MG TABLET PO (23:17)
[2023-01-20] MEDS: Montelukast Sodium 10 MG TABLET PO (23:17)
[2023-01-20] MEDS: Tamsulosin HCL 0.4 MG CAPSULE PO (23:17)
[2023-01-21 04:50] VITALS: BP 144/84; PULSE 82; RESP 17; TEMP 36.6; O2SAT 98
[2023-01-21] MEDS: Omeprazole 20 MG CAPSULE.DR PO (05:57)
--- NOTE | 2023-01-21 06:20 | PC.NURSE ---
pt slept during the shift, sitter present
[2023-01-21 07:51] VITALS: PULSE 81; RESP 16; TEMP 36.6; O2SAT 95
[2023-01-21] MEDS: Aspirin Enteric Coated 81 MG TABLET.DR PO (08:31)
[2023-01-21] MEDS: DULoxetine HCl 60 MG CAPSULE.DR PO (08:32)
[2023-01-21] MEDS: Cholecalciferol (Vitamin D3) 25 MCG TABLET 50 MCG PO (08:32)
[2023-01-21] MEDS: Atorvastatin Calcium 80 MG TABLET PO (08:32)
[2023-01-21] MEDS: Loratadine 10 MG TABLET PO (08:32)
--- NOTE | 2023-01-21 08:36 | PC.NURSE ---
alert and oriented, vss. patient observer at bedside. toast and coffee provider for pt, resting quietly in room watching tv with call donahue within reach. calm and cooperative at this time.
--- NOTE | 2023-01-21 09:05 | MHC.CM.ED ---
Received case management consult from Sharon KIRKPATRICK this morning. Patient came to the ER due to anxiety. Per Sharon KIRKPATRICK, patient was cleared by the Care Team and case management consult was recommended to arrange VNA. 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 Patient lives alone in an apartment above a bar. Patient had a walker/cane in the past. But no longer. Patient had no services prior to coming to the hospital PCP is at [facility]. Patient is in the process of trying to transfer to [facility] and is aware it will take 30 days. HCP verified to be on file. Patient received 4 Moderna vaccines and 1 Pfizer vaccine. Patient needs help with follow up for eye lid surgery and GI in regards to arranging appointemtns and transportation. Patient is active with [facility] [place]. T/W spoke with Aliza at [facility]. She will notify the patient's care aid about this. Patient's daughter will be at [facility] around 930 to transport patient home. Patient, Ada ENCINAS and Sharon KIRKPATRICK aware. Continue to monitor for d/c needs.
[2023-01-21] MEDS: glipiZIDE 5 MG TABLET 2.5 MG PO (09:08)
--- NOTE | 2023-01-21 09:11 | PC.NURSE ---
cleared by care team/case management. pt to be discharged home
== END 2023-01-21 09:35 | disposition home or self-care (01) ==
PROVIDERS: Emergency Provider Emergency Medicine
DX: F41.1 Generalized anxiety disorder (principal); F43.0 Acute stress reaction; R45.851 Suicidal ideations; F10.129 Alcohol abuse with intoxication, unspecified; Y90.8 Blood alcohol level of 240 mg/100 ml or more; Z79.899 Other long term (current) drug therapy
CPT/HCPCS: 36415; 80048; 80076; 80307; 81003; 83735; 85025; 99285; S9485

== ENCOUNTER 2023-01-23 15:08 | Outpatient (REF) | payer OTHER, MEDICAID, SELFPAY ==
--- NOTE | ~2023-01-23 | XR_ITS ---
EXAMINATION: XR ANKLE, RIGHT CLINICAL INFORMATION: Right ankle pain for one day COMPARISON: None available. TECHNIQUE: 4 views of the right ankle. FINDINGS: No fracture. Alignment is anatomic. No erosions. Joint spaces are maintained. Soft tissues are normal. Small plantar calcaneal spur. XR/XR ankle RT min 3V IMPRESSION: Normal right ankle.
== END 2023-01-23 15:09 | disposition home or self-care (01) ==
LOC: HO.HHCX 15:08
PROVIDERS: Visit Provider Optometrist
DX: M25.571 Pain in right ankle and joints of right foot (principal)
CPT/HCPCS: 73610

== ENCOUNTER 2023-02-09 12:44 | Emergency (ER) | payer OTHER, SELFPAY ==
[2023-02-09 12:56] VITALS: BP 160/80; PULSE 80; O2SAT 100
--- NOTE | 2023-02-09 12:58 | ED_ITS ---
HPI - General Adult General Chief complaint: Psychiatric Symptoms Stated complaint: ABD PAIN S/P TAKING MED WITHOUT FOOD PER EMS Time Seen by Provider: 02/09/23 13:25 Source: patient and RN notes reviewed Mode of arrival: ambulatory Limitations: no limitations History of Present Illness HPI narrative: This is a 58-year-old male, with a past medical history of diabetes, GERD, hyperlipidemia, hypertension, BRI, who presents to the emergency department for evaluation of worsening depression and epigastric pain. Patient reports that he took all of his normal medications on an empty stomach, and has had epigastric pain since. He describes this pain as a burning sensation. He also endorses worsening depression starting this morning. He states that he feels as though there is someone out to get him, and also endorses auditory hallucinations. Patient denies any headaches, dizziness, chest pain, shortness a breath, vomiting, diarrhea. He denies any suicidal or homicidal ideations. Denies visual hallucinations however endorses auditory hallucinations as stated above. Denies alcohol or drug use. No other complaints or concerns at this time. MD complaint: Epigastric pain, worsening depression Onset (ago): day(s) Severity: moderate Quality: aching Relieving factors: none Exacerbating factors: none Associated symptoms: denies other symptoms Treatments prior to arrival: none Related Data Home Medications Medication Instructions Recorded Confirmed albuterol sulfate 90 mcg/actuation 2 puff inhalation Q4H PRN 06/22/20 02/09/23 aerosol inhaler (Ventolin HFA) Shortness Of Breath clonazepam 2 mg tablet 2 mg PO BEDTIME 06/22/20 02/09/23 dorzolamide 22.3 mg-timolol 6.8 1 drp ophthalmic (eye) BID 06/22/20 02/09/23 mg/mL eye drops (Cosopt) duloxetine 60 mg capsule,delayed 60 mg PO DAILY 06/22/20 02/09/23 release (Cymbalta) glimepiride 1 mg tablet 1 mg PO DAILY 06/22/20 02/09/23 loratadine 10 mg tablet 10 mg PO DAILY 06/22/20 02/09/23 montelukast 10 mg tablet 10 mg PO BEDTIME 06/22/20 02/09/23 (Singulair) omeprazole 20 mg capsule,delayed 20 mg PO BID 06/22/20 02/09/23 release tamsulosin 0.4 mg capsule (Flomax) 0.4 mg PO BEDTIME 06/22/20 02/09/23 verapamil 100 mg capsule 24hr 100 mg PO BEDTIME 06/22/20 02/09/[address],ext.release aspirin 81 mg tablet,delayed 81 mg PO DAILY 06/26/20 02/09/23 release rosuvastatin 40 mg tablet 40 mg PO DAILY 06/26/20 02/09/23 ropinirole 0.5 mg tablet 0.5 mg PO BEDTIME 04/23/22 02/09/23 trazodone 150 mg tablet 150 mg PO BEDTIME 04/23/22 02/09/23 cholecalciferol (vitamin D3) 50 50 mcg PO DAILY 01/20/23 02/09/23 mcg (2,000 unit) capsule (Vitamin D3) fluticasone propionate 50 2 spray intranasal DAILY PRN 01/20/23 02/09/23 mcg/actuation nasal Allergy Symptoms spray,suspension Allergies Allergy/AdvReac Type Severity Reaction Status Date / Time olanzapine [From ZYPREXA] Allergy Unknown UNKNOWN Verified 02/09/23 13:00 mirtazapine [From REMERON] AdvReac Unknown PAIN IN Verified 02/09/23 13:00 LEGS sertraline [From ZOLOFT] AdvReac Unknown ANXIETY Verified 02/09/23 13:00 gabapentin AdvReac Unknown Verified 02/09/23 13:00 metformin AdvReac Unknown Verified 02/09/23 13:00 Review of Systems 2 Review of Systems: Yes all other systems are reviewed and are negative Constitutional: Constitutional: Reports as per [facility] Past Medical History Attestation statement: The following information was validated with the patient. Medical History Alcohol abuse Anxiety Asthma Diverticulosis GERD (gastroesophageal reflux disease) Hyperlipidemia Hypertension BRI (obstructive sleep apnea) Suicidal ideation Surgical History History of laparoscopic cholecystectomy Social History Social History Household Members: Significant Other Housing: Apartment Do you presently have visiting nurse or other home services: No Alcohol intake: current Alcohol intake frequency: a few times a month Advance Directives: No Advance Directives Information Provided: No service: No Current occupational status: disabled Physical Exam ED Vital Signs: Vital Signs - 24 hr 02/09/23 13:01 02/09/23 16:26 Temperature 98 F 97.4 F Pulse Rate 89 82 Respiratory Rate 18 18 Blood Pressure 150/92 H 158/86 H Pulse Oximetry 100 98 Oxygen Delivery Method Room Air Room Air BMI result Body Mass Index 36.1 Const General: cooperative, comfortable and no acute distress Orientation/consciousness: patient oriented x3 Limitations: no limitations HENMT Head: Yes normal to inspection, Yes normocephalic and Yes atraumatic Ears: hearing grossly normal bilaterally General nose exam: Normal external nose present Face and sinus: Yes normal facial exam Mouth: Normal oral and palatal mucosa present, oropharynx normal and moist mucous membranes Throat: Yes posterior oropharynx normal Eyes General: appearance normal, both eyes and all related structures Eyelids: Yes eyelids normal Conjunctivae: conjunctivae normal Sclerae: sclerae normal Pupils: Equal, round and reactive pupils present EOM: EOMs intact bilaterally Neck Neck: Yes normal visual inspection, Yes full ROM and Yes no lymphadenopathy Lymphatic: no lymphadenopathy noted Chest Chest palpation & inspection: normal inspection of the chest Resp Effort & Inspection: normal respiratory effort and able to speak in complete sentences Auscultation: clear to auscultation bilaterally, no crackles, no rales, no rhonchi and no wheezes Cardio Rate: regular rate Rhythm: regular rhythm Heart sounds: S1 normal heart sound present and S2 normal heart sound present GI Other: Abdomen is soft, nontender, nondistended, normoactive bowel sounds present in all 4 quadrants. Inspection: Yes normal to inspection Skin General skin exam: no rashes or lesions noted Trauma: no lacerations or abrasions Wounds: no wounds Neuro General: patient oriented x3 and moves all extremities Cranial nerves: Yes Equal, round and reactive pupils present Extrem General: Yes normal to inspection Right upper extremity: normal to inspection Left upper extremity: normal to inspection Right lower extremity: normal to inspection Left lower extremity: normal to inspection Psych Appearance: grossly normal Mental Status: mental status grossly normal Speech and movement: Normal speech and movement present Affect: Labile affect present and Sad affect present Attitude: Guarded attititude/behavior present and Avoids eye contact (attititude/behavior) Thought content: Paranoid delusions present Insight: Fair insight present (Psych) Judgement: Fair judgement present (Psych) Course Course Course Narrative: This is an RME: Additional HPI, ROS, PE not included below will be deferred to primary provider. Patient is a 58 year old male presenting with depression. Patient admits to intermittent suicidal ideations. Nauseous from anxiety and taking medications on an empty stomach. Reevaluation(s) Reevaluation #1: Patient was seen and evaluated, labs nondiagnostic. Abdomen is soft, nontender, nondistended. Patient will be medicated with GI cocktail. Time: 15:59 Reevaluation #2: A 58-year-old male came in for evaluation of depression, patient was evaluated by care team and patient is in a suicidal or homicidal with no visual or auditory hallucination patient be discharged home to his daughter, patient feels safe to be discharged no SI or HI at discharge. no CP, SOB, abdominal pain, nausea, vomiting, or diarrhea. Time: 21:11 Medications Administered Discontinued Medications Generic Name Dose Route Start Last Admin Trade Name Freq PRN Reason Stop Dose Admin Al Hydroxide/Mg Hydroxide 30 ml 02/09/23 15:52 02/09/23 16:28 Magnesium Hydrox/Alum Hydrox 30 Ml Oral.Susp PO 02/09/23 15:53 30 ml ONCE ONE Administration Lidocaine HCl 15 ml 02/09/23 15:52 02/09/23 16:28 Lidocaine Hcl Viscous 2 % 15 Ml Solution MUCOUS MEM 02/09/23 15:53 15 ml ONCE ONE Administration Lorazepam 1 mg 02/09/23 13:00 02/09/23 13:10 Lorazepam 1 Mg Tablet PO 02/09/23 13:01 1 mg ONCE ONE Administration Medical Decision Making Medical Decision Making [facility] Narrative: 58-year-old male presenting to the emergency department for evaluation of epigastric pain and worsening depression. Patient endorses epigastric pain which started after taking his medications on an empty stomach. On arrival, patient mildly hypertensive at 150/92. COVID negative. On examination, abdomen is soft, nontender, nondistended, no epigastric or right upper quadrant pain. Differential diagnoses include gastritis versus gastroenteritis versus GERD versus medication side effect. Less likely bowel obstruction, diverticulitis, diverticulosis. Plan: Labs, urine, COVID, Maalox and viscous lidocaine Differential Diagnosis Differential Diagnoses: The differential diagnosis associated with the presentation includes See above Lab Data [facility] Lab Attestation statement: I reviewed the patient's lab results. No leukocytosis, H and H stable. Point of care glucose mildly elevated 143, AST 66, ALT 60. 02/09/23 15:11 02/09/23 15:11 Labs: Lab Results 02/09/23 02/09/23 02/09/23 Range/Units 13:26 13:37 15:11 WBC 7.4 (4.8-10.8) X10*3/uL RBC 4.96 (4.60-5.80) X10*6/uL Hgb 14.6 (14.0-18.0) g/dl Hct 43.2 (42.0-52.0) % MCV 87.1 (80.0-98.0) fL MCH 29.4 (27.0-33.0) pg MCHC 33.8 (31.0-36.0) g/dl RDW 12.2 (11.0-16.0) % Plt Count 330 (160-400) X10*3/uL MPV 9.4 (9.4-12.4) fL Immature Gran % (Auto) 0.3 (0.0-0.4) % Neut % (Auto) 61.1 (45-73) % Lymph % (Auto) 26.3 (20-40) % [place] % (Auto) 11.5 H (2-11) % Eos % (Auto) 0.1 (0-4) % Baso % (Auto) 0.7 (0-2) % Lymph # (Auto) 1.9 (1.2-4.9) X10*3/uL [place]ama # (Auto) 0.9 (0.1-1.2) X10*3/uL Eos # (Auto) 0.0 (0.0-0.4) X10*3/uL Baso # (Auto) 0.1 (0.0-0.2) X10*3/uL Abs Immat Gran (auto) 0.02 (0.00-0.03) X10*3/uL Absolute Neuts (auto) 4.5 (2.0-8.3) x10*3/uL Absolute Nucleated RBC 0.000 (0.0-0.012) X10*3/uL Nucleated RBC % (auto) 0.0 (0.0-0.2) /100WBC Sodium (135-145) mmol/L Potassium (3.3-5.1) mmol/L Chloride (96-108) mmol/L Carbon Dioxide (22-29) mmol/L Anion Gap (12-20) BUN (9-16) mg/dL Creatinine (0.5-1.4) mg/dL Estim Creat Clear Calc Estimated GFR POC Glucose 143 H (60-115) mg/dL Random Glucose (60-115) mg/dL Calcium (8.4-10.2) mg/dL Total Bilirubin (0.0-1.0) mg/dL AST (5-37) U/L ALT (0-40) U/L Alkaline Phosphatase (39-117) U/L Total Protein (6.5-8.0) g/dL Albumin (3.5-5.0) g/dL Urine Color Urine Appearance Urine pH (5.0-9.0) Ur Specific [place] (1.005-1.025) Urine Protein (Neg-Trace) mg/dL Urine Glucose (UA) (Negative) mg/dL Urine Ketones (Negative) mg/dL Urine Blood (Negative) Urine Nitrite (Negative) Ur Leukocyte Esterase (Negative) Urine RBC (0-2) /HPF Urine WBC (0-5) /HPF Ur Squamous Epith Cells (0-2) /HPF Urine Bacteria (None Seen) Hyaline Casts (0-2) /LPF Salicylates (15-30) mg/dL Urine Opiates Screen (Not Detect) Urine Fentanyl Screen (Not Detect) Acetaminophen (<30) mcg/mL Ur Barbiturates Screen (Not Detect) Ur Phencyclidine Scrn (Not Detect) Ur Amphetamines Screen (Not Detect) U Benzodiazepines Scrn (Not Detect) Urine Cocaine Screen (Not Detect) U Marijuana (THC) Screen (Not Detect) Ethyl Alcohol mg/dL COVID-19 (ALISHA) Negative (Negative) COVID-19 Clin Com See Note 02/09/23 02/09/23 02/09/23 Range/Units 15:11 15:11 17:56 WBC (4.8-10.8) X10*3/uL RBC (4.60-5.80) X10*6/uL Hgb (14.0-18.0) g/dl Hct (42.0-52.0) % MCV (80.0-98.0) fL MCH (27.0-33.0) pg MCHC (31.0-36.0) g/dl RDW (11.0-16.0) % Plt Count (160-400) X10*3/uL MPV (9.4-12.4) fL Immature Gran % (Auto) (0.0-0.4) % Neut % (Auto) (45-73) % Lymph % (Auto) (20-40) % [place] % (Auto) (2-11) % Eos % (Auto) (0-4) % Baso % (Auto) (0-2) % Lymph # (Auto) (1.2-4.9) X10*3/uL [place]ama # (Auto) (0.1-1.2) X10*3/uL Eos # (Auto) (0.0-0.4) X10*3/uL Baso # (Auto) (0.0-0.2) X10*3/uL Abs Immat Gran (auto) (0.00-0.03) X10*3/uL Absolute Neuts (auto) (2.0-8.3) x10*3/uL Absolute Nucleated RBC (0.0-0.012) X10*3/uL Nucleated RBC % (auto) (0.0-0.2) /100WBC Sodium 140 (135-145) mmol/L Potassium 4.5 (3.3-5.1) mmol/L Chloride 105 (96-108) mmol/L Carbon Dioxide 26 (22-29) mmol/L Anion Gap 14 (12-20) BUN 8 L (9-16) mg/dL Creatinine 0.85 (0.5-1.4) mg/dL Estim Creat Clear Calc 99.6 Estimated GFR > 60 POC Glucose (60-115) mg/dL Random Glucose 133 H (60-115) mg/dL Calcium 9.2 (8.4-10.2) mg/dL Total Bilirubin 0.6 (0.0-1.0) mg/dL AST 66 H (5-37) U/L ALT 60 H (0-40) U/L Alkaline Phosphatase 75 (39-117) U/L Total Protein 7.7 (6.5-8.0) g/dL Albumin 4.3 (3.5-5.0) g/dL Urine Color Yellow Urine Appearance Clear Urine pH 7.0 (5.0-9.0) Ur Specific [place] 1.020 (1.005-1.025) Urine Protein Negative (Neg-Trace) mg/dL Urine Glucose (UA) Negative (Negative) mg/dL Urine Ketones Negative (Negative) mg/dL Urine Blood Negative (Negative) Urine Nitrite Negative (Negative) Ur Leukocyte Esterase Negative (Negative) Urine RBC 0-2 (0-2) /HPF Urine WBC 0-5 (0-5) /HPF Ur Squamous Epith Cells 0-2 (0-2) /HPF Urine Bacteria None Seen (None Seen) Hyaline Casts 0-2 (0-2) /LPF Salicylates < 5.0 L (15-30) mg/dL Urine Opiates Screen (Not Detect) Urine Fentanyl Screen (Not Detect) Acetaminophen < 17 (<30) mcg/mL Ur Barbiturates Screen (Not Detect) Ur Phencyclidine Scrn (Not Detect) Ur Amphetamines Screen (Not Detect) U Benzodiazepines Scrn (Not Detect) Urine Cocaine Screen (Not Detect) U Marijuana (THC) Screen (Not Detect) Ethyl Alcohol < 10 mg/dL COVID-19 (ALISHA) (Negative) COVID-19 Clin Com 02/09/23 Range/Units 17:56 WBC (4.8-10.8) X10*3/uL RBC (4.60-5.80) X10*6/uL Hgb (14.0-18.0) g/dl Hct (42.0-52.0) % MCV (80.0-98.0) fL MCH (27.0-33.0) pg MCHC (31.0-36.0) g/dl RDW (11.0-16.0) % Plt Count (160-400) X10*3/uL MPV (9.4-12.4) fL Immature Gran % (Auto) (0.0-0.4) % Neut % (Auto) (45-73) % Lymph % (Auto) (20-40) % [place] % (Auto) (2-11) % Eos % (Auto) (0-4) % Baso % (Auto) (0-2) % Lymph # (Auto) (1.2-4.9) X10*3/uL [place] # (Auto) (0.1-1.2) X10*3/uL Eos # (Auto) (0.0-0.4) X10*3/uL Baso # (Auto) (0.0-0.2) X10*3/uL Abs Immat Gran (auto) (0.00-0.03) X10*3/uL Absolute Neuts (auto) (2.0-8.3) x10*3/uL Absolute Nucleated RBC (0.0-0.012) X10*3/uL Nucleated RBC % (auto) (0.0-0.2) /100WBC Sodium (135-145) mmol/L Potassium (3.3-5.1) mmol/L Chloride (96-108) mmol/L Carbon Dioxide (22-29) mmol/L Anion Gap (12-20) BUN (9-16) mg/dL Creatinine (0.5-1.4) mg/dL Estim Creat Clear Calc Estimated GFR POC Glucose (60-115) mg/dL Random Glucose (60-115) mg/dL Calcium (8.4-10.2) mg/dL Total Bilirubin (0.0-1.0) mg/dL AST (5-37) U/L ALT (0-40) U/L Alkaline Phosphatase (39-117) U/L Total Protein (6.5-8.0) g/dL Albumin (3.5-5.0) g/dL Urine Color Urine Appearance Urine pH (5.0-9.0) Ur Specific [place] (1.005-1.025) Urine Protein (Neg-Trace) mg/dL Urine Glucose (UA) (Negative) mg/dL Urine Ketones (Negative) mg/dL Urine Blood (Negative) Urine Nitrite (Negative) Ur Leukocyte Esterase (Negative) Urine RBC (0-2) /HPF Urine WBC (0-5) /HPF Ur Squamous Epith Cells (0-2) /HPF Urine Bacteria (None Seen) Hyaline Casts (0-2) /LPF Salicylates (15-30) mg/dL Urine Opiates Screen Not Detected (Not Detect) Urine Fentanyl Screen POSITIVE H (Not Detect) Acetaminophen (<30) mcg/mL Ur Barbiturates Screen Not Detected (Not Detect) Ur Phencyclidine Scrn Not Detected (Not Detect) Ur Amphetamines Screen Not Detected (Not Detect) U Benzodiazepines Scrn Not Detected (Not Detect) Urine Cocaine Screen Not Detected (Not Detect) U Marijuana (THC) Screen Not Detected (Not Detect) Ethyl Alcohol mg/dL COVID-19 (ALISHA) (Negative) COVID-19 Clin Com Discharge Plan Discharge Clinical Impression: Acute anxiety, Depression Patient Disposition: Home, Self-Care Instructions: Anxiety (ED) Prescriptions: No Action aspirin 81 mg tablet,delayed release (DR/EC) 81 mg PO DAILY rosuvastatin 40 mg tablet 40 mg PO DAILY glimepiride 1 mg Tablet 1 mg PO DAILY tamsulosin [Flomax] 0.4 mg Capsule 0.4 mg PO BEDTIME clonazepam 2 mg Tablet 2 mg PO BEDTIME omeprazole 20 mg Capsule,Delayed Release(Dr/Ec) 20 mg PO BID verapamil 100 mg Capsule, [address] 100 mg PO BEDTIME dorzolamide-timolol [Cosopt] 22.3-6.8 mg/mL Drops 1 drp OPHTHALMIC (EYE) BID montelukast [Singulair] 10 mg Tablet 10 mg PO BEDTIME albuterol sulfate [Ventolin HFA] 90 mcg/actuation Hfa Aerosol Inhaler 2 puff INHALATION Q4H PRN (Reason: Shortness Of Breath) duloxetine [Cymbalta] 60 mg Capsule,Delayed Release(Dr/Ec) 60 mg PO DAILY loratadine 10 mg Tablet 10 mg PO DAILY fluticasone propionate 50 mcg/actuation spray,suspension 2 spray intranasal DAILY PRN (Reason: Allergy Symptoms) cholecalciferol (vitamin D3) [Vitamin D3] 50 mcg (2,000 unit) capsule 50 mcg PO DAILY ropinirole 0.5 mg tablet 0.5 mg PO BEDTIME Rx Instructions: administer 1-3 hours before bedtime trazodone 150 mg tablet 150 mg PO BEDTIME Interventions: [place]-Suicide Risk Severity Scale Last Done: 02/09/23 16:26 ED Discharge Assessment Last Done: 02/09/23 21:17 Discharge Date/Time: 02/09/23 21:26
[2023-02-09 13:01] VITALS: BP 150/92; PULSE 89; RESP 18; TEMP 36.6; O2SAT 100; BMI 36.1
[2023-02-09] MEDS: LORazepam 1 MG TABLET PO (13:10)
[2023-02-09 13:35] LABS: Glucose, Whole Blood 143 mg/dL (60-115)
[2023-02-09 14:02] LABS: COVID-19 Test Negative (Negative); IDNOW Serial# 08D9AD1C
[2023-02-09 15:17] LABS: MANUAL DIFF FLAG NO
[2023-02-09 15:18] LABS: Basophils Absolute Auto 0.1 X10*3/uL (0.0-0.2); Basophils Percent Auto 0.7 % (0-2); Eosinophils Percent Auto 0.1 % (0-4); Hematocrit 43.2 % (42.0-52.0); Hemoglobin 14.6 g/dl (14.0-18.0); Imm Gran Abs Auto 0.02 X10*3/uL (0.00-0.03); Imm Gran Pct Auto 0.3 % (0.0-0.4); Lymphocytes Absolute Auto 1.9 X10*3/uL (1.2-4.9); Lymphocytes Percent Auto 26.3 % (20-40); Mean Corpuscular HGB Conc 33.8 g/dl (31.0-36.0); Mean Corpuscular Hemoglobin 29.4 pg (27.0-33.0); Mean Corpuscular Volume 87.1 fL (80.0-98.0); Mean Platelet Volume 9.4 fL (9.4-12.4); Monocytes Absolute Auto 0.9 X10*3/uL (0.1-1.2); Monocytes Percent Auto 11.5 % (2-11); Neutrophils Absolute Auto 4.5 x10*3/uL (2.0-8.3); Neutrophils Percent Auto 61.1 % (45-73); Platelet Count 330 X10*3/uL (160-400); Red Blood Count 4.96 X10*6/uL (4.60-5.80); Red Cell Distribution Width 12.2 % (11.0-16.0); White Blood Count 7.4 X10*3/uL (4.8-10.8)
[2023-02-09 15:36] LABS: Acetaminophen LAB < 17 mcg/mL (<30); Alanine Aminotransferase 60 U/L (0-40); Albumin Level 4.3 g/dL (3.5-5.0); Alkaline Phosphatase 75 U/L (39-117); Anion Gap 14 (12-20); Aspartate Amino Transferase 66 U/L (5-37); Bilirubin Total 0.6 mg/dL (0.0-1.0); Blood Urea Nitrogen 8 mg/dL (9-16); Calcium 9.2 mg/dL (8.4-10.2); Carbon Dioxide 26 mmol/L (22-29); Chloride 105 mmol/L (96-108); Creatinine Clr Calc Pharmacy 99.6; Estimated Glomerular Filt Rate > 60; Ethanol < 10 mg/dL; Glucose Random 133 mg/dL (60-115); Potassium 4.5 mmol/L (3.3-5.1); Salicylate < 5.0 mg/dL (15-30); Sodium 140 mmol/L (135-145); Total Protein 7.7 g/dL (6.5-8.0)
[2023-02-09 16:26] VITALS: BP 158/86; PULSE 82; RESP 18; TEMP 36.3; O2SAT 98
[2023-02-09] MEDS: Magnesium Hydrox/Alum Hydrox 30 ML ORAL.SUSP PO (16:28)
[2023-02-09] MEDS: Lidocaine HCl Viscous 2 % 15 ML SOLUTION MUCOUS MEM (16:28)
--- NOTE | 2023-02-09 16:30 | PC.NURSE ---
patient has been resting in room, respirations equal and unlabored. patient having episodes of nausea and gagging
[2023-02-09 18:06] LABS: Appearance Urine Clear; Color Urine Yellow; Glucose Urine UA Negative (Negative); Leukocyte Esterase Urine Negative (Negative); Nitrite Urine Negative (Negative); Urine Blood Negative (Negative); Urine Ketones Negative (Negative); Urine Protein Negative (Neg-Trace)
[2023-02-09 18:08] LABS: Bacteria Urine None Seen (None Seen); Hyaline Casts Urine 0-2 /LPF (0-2); RBC Urine 0-2 /HPF (0-2); Squamous Epithelial Cell Urine 0-2 /HPF (0-2); WBC Urine 0-5 /HPF (0-5)
[2023-02-09 18:13] LABS: Amphetamine Screen Urine Not Detected (Not Detect); Barbiturates, Urine Not Detected (Not Detect); Benzodiazepines Screen Urine Not Detected (Not Detect); Cannabinoid Screen Urine Not Detected (Not Detect); Cocaine Screen Urine Not Detected (Not Detect); Fentanyl, urine POSITIVE (Not Detect); Opiate Screen Urine Not Detected (Not Detect); Phencyclidine Screen Urine Not Detected (Not Detect)
== END 2023-02-09 21:26 | disposition home or self-care (01) ==
PROVIDERS: Emergency Provider Emergency Medicine
DX: F33.1 Major depressive disorder, recurrent, moderate (principal); F41.1 Generalized anxiety disorder; F43.0 Acute stress reaction; Z20.822 Contact with and (suspected) exposure to COVID-19; Z20.828 Contact with and (suspected) exposure to other viral communicable diseases; Z79.899 Other long term (current) drug therapy
CPT/HCPCS: 36415; 80053; 80143; 80179; 80307; 81001; 82947; 85025; 87635; 99284; S9485

== ENCOUNTER 2023-03-26 02:08 | Emergency (ER) | payer OTHER, SELFPAY ==
[2023-03-26 02:17] VITALS: BP 160/82; PULSE 108; O2SAT 99
[2023-03-26 02:20] VITALS: BMI 33.3
[2023-03-26 03:04] LABS: Appearance Urine Clear; Color Urine Yellow; Glucose Urine UA Negative (Negative); Leukocyte Esterase Urine Negative (Negative); Nitrite Urine Negative (Negative); PH 5.5 (5.0-9.0); Specific Gravity - Urine <= 1.005 (1.005-1.025); Urine Blood Negative (Negative); Urine Ketones Negative (Negative); Urine Protein Negative (Neg-Trace)
[2023-03-26 03:16] LABS: Amphetamine Screen Urine Not Detected (Not Detect); Barbiturates, Urine Not Detected (Not Detect); Benzodiazepines Screen Urine Not Detected (Not Detect); Cannabinoid Screen Urine Not Detected (Not Detect); Cocaine Screen Urine Not Detected (Not Detect); Fentanyl, urine Not Detected (Not Detect); Opiate Screen Urine Not Detected (Not Detect); Phencyclidine Screen Urine Not Detected (Not Detect)
--- NOTE | 2023-03-26 03:22 | MHC.EDTECH ---
This tech assumed care of patient at 0300AM, patient already was in crisis attire and belongings list was completed by the previous tech and all belongings are in the Laundry Room in the pod. 1-1 sitter at bedside for safety
[2023-03-26 03:25] LABS: Basophils Absolute Auto 0.1 X10*3/uL (0.0-0.2); Basophils Percent Auto 0.9 % (0-2); Eosinophils Absolute Auto 0.1 X10*3/uL (0.0-0.4); Eosinophils Percent Auto 1.5 % (0-4); Hematocrit 44.8 % (42.0-52.0); Hemoglobin 15.6 g/dl (14.0-18.0); Imm Gran Abs Auto 0.03 X10*3/uL (0.00-0.03); Imm Gran Pct Auto 0.5 % (0.0-0.4); Lymphocytes Absolute Auto 3.4 X10*3/uL (1.2-4.9); Lymphocytes Percent Auto 53.1 % (20-40); MANUAL DIFF FLAG NO; Mean Corpuscular HGB Conc 34.8 g/dl (31.0-36.0); Mean Corpuscular Hemoglobin 29.6 pg (27.0-33.0); Mean Platelet Volume 9.1 fL (9.4-12.4); Monocytes Absolute Auto 0.7 X10*3/uL (0.1-1.2); Monocytes Percent Auto 10.2 % (2-11); Neutrophils Absolute Auto 2.2 x10*3/uL (2.0-8.3); Neutrophils Percent Auto 33.8 % (45-73); Platelet Count 308 X10*3/uL (160-400); Red Blood Count 5.27 X10*6/uL (4.60-5.80); Red Cell Distribution Width 12.3 % (11.0-16.0); White Blood Count 6.5 X10*3/uL (4.8-10.8)
--- NOTE | 2023-03-26 03:35 | ED.PSYCH ---
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 Related Data Home Medications Medication Instructions Recorded Confirmed albuterol sulfate 90 mcg/actuation 2 puff inhalation Q4H PRN 06/22/20 03/26/23 aerosol inhaler (Ventolin HFA) Shortness Of Breath omeprazole 20 mg capsule,delayed 20 mg PO BID 06/22/20 03/26/23 release tamsulosin 0.4 mg capsule (Flomax) 0.4 mg PO BEDTIME 06/22/20 03/26/23 clonazepam 2 mg tablet 2 mg PO BEDTIME 03/26/23 03/26/23 dorzolamide 22.3 mg-timolol 6.8 1 drp ophthalmic (eye) BID 03/26/23 03/26/23 mg/mL eye drops duloxetine 60 mg capsule,delayed 60 mg PO DAILY 03/26/23 03/26/23 release lisinopril 10 mg tablet 10 mg PO QAM 03/26/23 03/26/23 loratadine 10 mg tablet 10 mg PO QAM 03/26/23 03/26/23 trazodone 150 mg tablet 150 mg PO BEDTIME PRN insomnia 03/26/23 03/26/23 Allergies Allergy/AdvReac Type Severity Reaction Status Date / Time olanzapine [From ZYPREXA] Allergy Unknown UNKNOWN Verified 02/09/23 13:00 mirtazapine [From REMERON] AdvReac Unknown PAIN IN Verified 02/09/23 13:00 LEGS sertraline [From ZOLOFT] AdvReac Unknown ANXIETY Verified 02/09/23 13:00 gabapentin AdvReac Unknown Verified 02/09/23 13:00 metformin AdvReac Unknown Verified 02/09/23 13:00 Review of Systems Review of Systems: Pertinent positives and negatives as stated in HPI PMFSH Past Medical History Source: nursing notes reviewed Medical History GERD (gastroesophageal reflux disease) Asthma Anxiety Hyperlipidemia Hypertension BRI (obstructive sleep apnea) Alcohol abuse Suicidal ideation Diverticulosis Surgical History History of laparoscopic cholecystectomy Social History Social History Household Members: Significant Other Housing: Apartment Do you presently have visiting nurse or other home services: No Alcohol intake: current Alcohol intake frequency: a few times a month Advance Directives: No Advance Directives Information Provided: No service: No Current occupational status: disabled Physical Exam Vital Signs: Vital Signs: Last Vital Signs Temp 97.8 F 03/26/23 03:37 Pulse 105 H 03/26/23 03:37 Resp 18 03/26/23 03:37 BP 127/87 03/26/23 03:37 Pulse Ox 95 03/26/23 03:37 O2 Del Method Room Air 03/26/23 03:37 BMI result Body Mass Index 33.3 VITAL SIGNS: Reviewed. GENERAL: Well developed, well nourished, in no acute distress. HEAD: Normocephalic/atraumatic EYES: PERRLA, EOMI EARS: Ext canals without abnormality NOSE: Nares patent bilateral OROPHARYNX: no oral lesions noted, posterior pharynx clear NECK: Supple, no adenopathy LUNGS: Normal breath sounds. No adventitious sounds or accessory muscle use. SpO2<95> CARDIOVASCULAR: Regular rate and rhythm without noted murmurs ABDOMEN: Soft, non-tender, non-distended with bowel sounds. MUSCULOSKELETAL: No tenderness, deformities, or effusions noted on gross inspection. EXTREMITIES: No cyanosis, clubbing or edema. Bilateral upper extremities with superficial lacerations that are hemostatic. SKIN: Inspection of the skin reveals no rashes NEUROLOGIC: Alert and oriented x 4. Strength and sensation to light touch were grossly intact x 4, cranial nerves 2-12 are grossly intact. PSYCH: Tearful Medications Administered Discontinued Medications Generic Name Dose Route Start Last Admin Trade Name Freq PRN Reason Stop Dose Admin Lorazepam 0.5 mg 03/26/23 03:26 03/26/23 03:44 Lorazepam 0.5 Mg Tablet PO 03/26/23 03:27 0.5 mg ONCE ONE Administration Medical Decision Making Medical Decision Making [facility] Narrative: 58-year-old male with longstanding psychiatric history and presents with suicidal ideation depression with superficial lacerations. I reviewed all investigations and there is no leukocytosis or left shift, there is no anemia or thrombocytopenia. Chemistry indices are without evidence of IVETTE or electrolyte derangements. Patient has chronically elevated transaminases. Urinalysis negative for UTI or hematuria. Toxicology is negative for UDS and BAL-182. Patient is otherwise medically cleared for further evaluation by the care team. Patient placed in physician observation because the patient needed more time for evaluation by the care team. At the time observation was started the patient's vital signs were stable, patient is alert and oriented, neuro: Nonfocal, CV RRR, lungs clear Differential Diagnosis Differential Diagnoses: The differential diagnosis associated with the presentation includes Please see the discussion above Admission/Observation Consideration of admission/observation: Escalation of care including admission/observation considered Please see the discussion above Lab Data [facility] Lab Attestation statement: I reviewed the patient's lab results. Please see the discussion above 03/26/23 03:20 03/26/23 03:20 Labs: Lab Results 03/26/23 03/26/23 Range/Units 02:56 03:20 WBC 6.5 (4.8-10.8) X10*3/uL RBC 5.27 (4.60-5.80) X10*6/uL Hgb 15.6 (14.0-18.0) g/dl Hct 44.8 (42.0-52.0) % MCV 85.0 (80.0-98.0) fL MCH 29.6 (27.0-33.0) pg MCHC 34.8 (31.0-36.0) g/dl RDW 12.3 (11.0-16.0) % Plt Count 308 (160-400) X10*3/uL MPV 9.1 L (9.4-12.4) fL Immature Gran % (Auto) 0.5 H (0.0-0.4) % Neut % (Auto) 33.8 L (45-73) % Lymph % (Auto) 53.1 H (20-40) % Davis % (Auto) 10.2 (2-11) % Eos % (Auto) 1.5 (0-4) % Baso % (Auto) 0.9 (0-2) % Lymph # (Auto) 3.4 (1.2-4.9) X10*3/uL Davis # (Auto) 0.7 (0.1-1.2) X10*3/uL Eos # (Auto) 0.1 (0.0-0.4) X10*3/uL Baso # (Auto) 0.1 (0.0-0.2) X10*3/uL Abs Immat Gran (auto) 0.03 (0.00-0.03) X10*3/uL Absolute Neuts (auto) 2.2 (2.0-8.3) x10*3/uL Absolute Nucleated RBC 0.000 (0.0-0.012) X10*3/uL Nucleated RBC % (auto) 0.0 (0.0-0.2) /100WBC Sodium 139 (135-145) mmol/L Potassium 4.2 (3.3-5.1) mmol/L Chloride 105 (96-108) mmol/L Carbon Dioxide 20 L (22-29) mmol/L Anion Gap 18 (12-20) BUN 11 (9-16) mg/dL Creatinine 1.03 (0.5-1.4) mg/dL Estim Creat Clear Calc 78.9 Estimated GFR > 60 Random Glucose 145 H (60-115) mg/dL Calcium 9.7 (8.4-10.2) mg/dL Total Bilirubin 0.5 (0.0-1.0) mg/dL AST 56 H (5-37) U/L ALT 56 H (0-40) U/L Alkaline Phosphatase 72 (39-117) U/L Total Protein 8.6 H (6.5-8.0) g/dL Albumin 4.7 (3.5-5.0) g/dL Urine Color Yellow Urine Appearance Clear Urine pH 5.5 (5.0-9.0) Ur Specific [place] <= 1.005 (1.005-1.025) Urine Protein Negative (Neg-Trace) mg/dL Urine Glucose (UA) Negative (Negative) mg/dL Urine Ketones Negative (Negative) mg/dL Urine Blood Negative (Negative) Urine Nitrite Negative (Negative) Ur Leukocyte Esterase Negative (Negative) Urine Opiates Screen Not Detected (Not Detect) Urine Fentanyl Screen Not Detected (Not Detect) Ur Barbiturates Screen Not Detected (Not Detect) Ur Phencyclidine Scrn Not Detected (Not Detect) Ur Amphetamines Screen Not Detected (Not Detect) U Benzodiazepines Scrn Not Detected (Not Detect) Urine Cocaine Screen Not Detected (Not Detect) U Marijuana (THC) Screen Not Detected (Not Detect) Ethyl Alcohol 182 mg/dL External Record Review External record reviewed: Outpatient record, Prior outpatient labs and Prior outpatient radiology Chronic Conditions Patient?s care impacted by: Hypertension Critical Care Time Critical Care Time Critical Care Time: Yes Total Critical Care Time: 30 Attestation: I personally attest to this time spent taking care of the patient. Discharge Plan Discharge Clinical Impression: Suicidal ideation, Superficial laceration, Alcohol intoxication Patient Disposition: Still a Patient Prescriptions: No Action tamsulosin [Flomax] 0.4 mg Capsule 0.4 mg PO BEDTIME omeprazole 20 mg Capsule,Delayed Release(Dr/Ec) 20 mg PO BID albuterol sulfate [Ventolin HFA] 90 mcg/actuation Hfa Aerosol Inhaler 2 puff INHALATION Q4H PRN (Reason: Shortness Of Breath) trazodone 150 mg tablet 150 mg PO BEDTIME PRN (Reason: insomnia) clonazepam 2 mg tablet 2 mg PO BEDTIME duloxetine 60 mg capsule,delayed release(DR/EC) 60 mg PO DAILY lisinopril 10 mg tablet 10 mg PO QAM dorzolamide-timolol 22.3-6.8 mg/mL drops 1 drp ophthalmic (eye) BID loratadine 10 mg tablet 10 mg PO QAM Interventions: [place]-Suicide Risk Severity Scale Last Done: 03/26/23 04:44
[2023-03-26 03:37] VITALS: BP 127/87; PULSE 105; RESP 18; TEMP 36.6; O2SAT 95
[2023-03-26 03:39] LABS: Alanine Aminotransferase 56 U/L (0-40); Albumin Level 4.7 g/dL (3.5-5.0); Alkaline Phosphatase 72 U/L (39-117); Anion Gap 18 (12-20); Aspartate Amino Transferase 56 U/L (5-37); Bilirubin Total 0.5 mg/dL (0.0-1.0); Blood Urea Nitrogen 11 mg/dL (9-16); Calcium 9.7 mg/dL (8.4-10.2); Carbon Dioxide 20 mmol/L (22-29); Chloride 105 mmol/L (96-108); Creatinine Clr Calc Pharmacy 78.9; Estimated Glomerular Filt Rate > 60; Ethanol 182 mg/dL; Glucose Random 145 mg/dL (60-115); Potassium 4.2 mmol/L (3.3-5.1); Sodium 139 mmol/L (135-145); Total Protein 8.6 g/dL (6.5-8.0)
[2023-03-26] MEDS: LORazepam 0.5 MG TABLET PO (03:44)
--- NOTE | 2023-03-26 04:50 | MHC.EDTECH ---
Patient has superficial cuts to both arms,this tech provide wound care with normal saline and peroxide, telfa dressing applied with a cling wrap. bleeding is controlled
--- NOTE | 2023-03-26 04:56 | PC.NURSE ---
per provider pt can go to the pod.
--- NOTE | 2023-03-26 06:46 | PC.NURSE ---
pt no longer needs a 1:1.
--- NOTE | 2023-03-26 07:13 | PC.NURSE ---
Patient just got transferred from main ED, no distress observed/reported, mood depressed, care consult ordered/pending evaluation, med rec completed/pending provider's approval, lab completed/resulted, will continue to monitor.
--- NOTE | 2023-03-26 08:10 | PC.NURSE ---
Milind was OOB this morning and requested to be discharged as he has a cataract surgery scheduled for 3pm that he would like to be able to make. Milind denies SI/HI/AVH but is tearful reporting he is safe but sad. Care team notified and discharge entered.
== END 2023-03-26 08:50 | disposition home or self-care (01) ==
PROVIDERS: Emergency Provider Student in an Organized Health Care Education/Training Program
DX: R45.851 Suicidal ideations (principal); F10.10 Alcohol abuse, uncomplicated; Y90.6 Blood alcohol level of 120-199 mg/100 ml; S51.812A Laceration without foreign body of left forearm, initial encounter; S51.811A Laceration without foreign body of right forearm, initial encounter; F43.21 Adjustment disorder with depressed mood; F41.9 Anxiety disorder, unspecified; F32.A Depression, unspecified; Z91.52 Personal history of nonsuicidal self-harm; Z79.899 Other long term (current) drug therapy; E78.5 Hyperlipidemia, unspecified; X78.9XXA Intentional self-harm by unspecified sharp object, initial encounter; Y93.9 Activity, unspecified; Y92.9 Unspecified place or not applicable; Y99.9 Unspecified external cause status
CPT/HCPCS: 36415; 80053; 80307; 81003; 85025; 99285; S9485

== ENCOUNTER 2023-04-06 11:42 | Outpatient (REF) | payer OTHER, SELFPAY ==
--- NOTE | ~2023-04-06 | XR_ITS ---
EXAMINATION: XR RIBS, RIGHT CLINICAL INFORMATION: Fall 6 days ago. Right anterior chest wall pain. COMPARISON: Most recent chest radiograph dated 06/20/2020. TECHNIQUE: PA view of the chest as well as 3 views of the right ribs. FINDINGS: No airspace consolidation. No pleural effusion or pneumothorax. Stable cardiomediastinal silhouette. Mildly displaced, oblique fracture through the anterolateral aspect of the right 7th rib. No additional displaced fracture. No concerning lytic or blastic osseous lesion. No abnormal soft tissue calcification. XR/XR ribs RT min 3V w CXR1V IMPRESSION: Mildly displaced, oblique fracture through the anterolateral aspect of the right 7th rib.
== END 2023-04-06 11:43 | disposition home or self-care (01) ==
LOC: HO.HHCX 11:42
PROVIDERS: Visit Provider Emergency Medicine
DX: S29.9XXA Unspecified injury of thorax, initial encounter (principal)
CPT/HCPCS: 71101

== ENCOUNTER 2023-06-05 07:12 | Inpatient (IN) | payer OTHER, SELFPAY ==
--- NOTE | 2023-06-05 | ECG_ITS ---
Test Reason : check qt interval Blood Pressure : / mmHG Vent. Rate : 095 BPM Atrial Rate : 095 BPM P-R Int : 152 ms QRS Dur : 098 ms QT Int : 354 ms P-R-T Axes : 066 -08 -02 degrees QTc Int : 444 ms Normal sinus rhythm Normal ECG When compared with ECG of 27-JUN-2020 10:36, Nonspecific T wave abnormality no longer evident in Anterolateral leads Referred By: Rosario Sullivan Electronically Signed By:ODIN CARBALLO MD
[2023-06-05 07:31] VITALS: BP 150/81; BP 154/96; PULSE 108; PULSE 112; RESP 26; TEMP 36.8; O2SAT 100; O2SAT 96; BMI 37.4
--- NOTE | 2023-06-05 07:34 | ED_ITS ---
HPI - Psych General Chief Complaint: Psychiatric Symptoms Stated Complaint: SI Time Seen by Provider: 06/05/23 07:16 History of Present Illness HPI Narrative: Patient is a 58-year-old male presents today with having suicidal thoughts. Having thought about cutting his wrist. Positive history of EtOH. Positive auditory hallucination. Patient claims he is very anxious because he did not take any of his medications. No fever no chills no chest pain or shortness of breath no nausea no vomiting. No focal weakness. Related Data Home Medications Medication Instructions Recorded Confirmed albuterol sulfate 90 mcg/actuation 2 puff inhalation Q4H PRN 06/22/20 06/05/23 aerosol inhaler (Ventolin HFA) Shortness Of Breath omeprazole 20 mg capsule,delayed 20 mg PO BID@0630,1630 06/22/20 06/05/23 release tamsulosin 0.4 mg capsule (Flomax) 0.4 mg PO BEDTIME 06/22/20 06/05/23 clonazepam 2 mg tablet 2 mg PO BEDTIME 03/26/23 06/05/23 dorzolamide 22.3 mg-timolol 6.8 1 drp ophthalmic (eye) BID 03/26/23 06/05/23 mg/mL eye drops duloxetine 60 mg capsule,delayed 60 mg PO DAILY 03/26/23 06/05/23 release lisinopril 10 mg tablet 10 mg PO DAILY 03/26/23 06/05/23 loratadine 10 mg tablet 10 mg PO DAILY 03/26/23 06/05/23 trazodone 150 mg tablet 150 mg PO BEDTIME PRN insomnia 03/26/23 06/05/23 ascorbic acid (vitamin C) 1,000 mg 1,000 mg PO DAILY 06/05/23 06/05/23 tablet (Vitamin C) aspirin 81 mg tablet,delayed 81 mg PO DAILY 06/05/23 06/05/23 release cholecalciferol (vitamin D3) 50 50 mcg PO DAILY 06/05/23 06/05/23 mcg (2,000 unit) capsule (Vitamin D3) fluticasone 250 mcg-salmeterol 50 1 ea inhalation BID 06/05/23 06/05/23 mcg/dose blistr powdr for inhalation (Wixela Inhub) fluticasone propionate 50 2 spray intranasal DAILY PRN 06/05/23 06/05/23 mcg/actuation nasal Allergic Symptoms spray,suspension glimepiride 1 mg tablet 1 mg PO DAILY 06/05/23 06/05/23 montelukast 10 mg tablet 10 mg PO BEDTIME 06/05/23 06/05/23 ropinirole 0.5 mg tablet 0.5 mg PO BEDTIME 06/05/23 06/05/23 rosuvastatin 40 mg tablet 40 mg PO BEDTIME 06/05/23 06/05/23 verapamil 100 mg capsule 24hr 100 mg PO BEDTIME 06/05/23 06/05/[address],ext.release vitamin A 2,400 mcg capsule 2,400 mcg PO DAILY 06/05/23 06/05/23 vitamin E 268 mg (400 unit) capsule 268 mg PO DAILY 06/05/23 06/05/23 zinc acetate 50 mg (zinc) capsule 50 mg PO DAILY 06/05/23 06/05/23 Allergies Allergy/AdvReac Type Severity Reaction Status Date / Time olanzapine [From ZYPREXA] Allergy Unknown UNKNOWN Verified 06/05/23 07:24 mirtazapine [From REMERON] AdvReac Unknown PAIN IN Verified 06/05/23 07:24 LEGS sertraline [From ZOLOFT] AdvReac Unknown ANXIETY Verified 06/05/23 07:24 gabapentin AdvReac Unknown Verified 06/05/23 07:24 metformin AdvReac Unknown Verified 06/05/23 07:24 Review of Systems 2 Review of Systems: Positive suicidal thoughts Yes all other systems are reviewed and are negative PMFSH Past Medical History Attestation statement: The following information was validated with the patient. Medical History GERD (gastroesophageal reflux disease) Asthma Anxiety Hyperlipidemia Hypertension BRI (obstructive sleep apnea) Alcohol abuse Suicidal ideation Diverticulosis Surgical History History of laparoscopic cholecystectomy Social History Social History Household Members: Significant Other Housing: Apartment Do you presently have visiting nurse or other home services: No Alcohol intake: current Alcohol intake frequency: holidays/special occasions only Alcohol type: beer Comment: sleeping Patient Tobacco Use Status: Never used Tobacco Smoked in Last 30 Days: No Use of substances other than those prescribed or required for medical reasons: No Advance Directives: No Advance Directives Information Provided: No Healthcare Proxy: Yes (per record 07/06/12) Guardian: No Nutrition Risks: No Nutritional Risk service: No Current occupational status: disabled Physical Exam 2 Vital Signs: Vital Signs: Last Vital Signs Temp 98.2 F 06/05/23 13:06 Pulse 99 06/05/23 13:06 Resp 18 06/05/23 13:06 BP 142/87 H 06/05/23 13:06 Pulse Ox 99 06/05/23 13:06 O2 Del Method Room Air 06/05/23 13:06 BMI result Body Mass Index 37.4 Appearance: Alert. Oriented X3. No acute distress. Eyes: Pupils equal, round and reactive to light. ENT: Pharynx normal. Neck: Normal inspection. Neck supple. No lymph nodes noted. No crepitus CVS: Normal heart rate and rhythm. Pulses normal. Normal S1 and S2 Respiratory: No respiratory distress. Breath sounds normal. No Wheezing. No rales Abdomen: Soft and nontender. No rigidity. No distention. good BS x4 Skin: Skin warm and dry. Normal skin color. Normal skin turgor. Extremities: No lower extremity edema. Neurovascular intact to all extremities. No Lacerations. No Rash Neuro: Oriented X 3. No motor deficit. No sensory deficit. Moving all extermities. No slurred speech Medications Administered Discontinued Medications Generic Name Dose Route Start Last Admin Trade Name Freq PRN Reason Stop Dose Admin Clonazepam 2 mg 06/05/23 07:33 06/05/23 07:39 Clonazepam 1 Mg Tablet PO 06/05/23 07:34 2 mg ONCE ONE Administration Lorazepam 2 mg 06/05/23 13:22 06/05/23 13:37 Lorazepam 1 Mg Tablet PO 06/05/23 13:23 2 mg ONCE ONE Administration Ondansetron HCl 4 mg 06/05/23 08:46 06/05/23 08:53 Ondansetron Odt 4 Mg Tab.Rapdis TRANSLINGU 06/05/23 08:47 4 mg ONCE ONE Administration Ondansetron HCl 4 mg 06/05/23 13:22 06/05/23 13:37 Ondansetron Odt 4 Mg Tab.Rapdis TRANSLINGU 06/05/23 13:23 4 mg ONCE ONE Administration Medical Decision Making Medical Decision Making MDM Narrative: Patient awake alert oriented have thoughts about wanting to end his life. Has not been compliant with his medication. Came back in for further evaluation. Will get crisis to evaluate patient. 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 06/05/23 07:41 06/05/23 07:41 Labs: Lab Results 06/05/23 06/05/23 06/05/23 Range/Units 07:41 09:56 12:53 WBC 9.0 (4.8-10.8) X10*3/uL RBC 5.02 (4.60-5.80) X10*6/uL Hgb 14.8 (14.0-18.0) g/dl Hct 43.5 (42.0-52.0) % MCV 86.7 (80.0-98.0) fL MCH 29.5 (27.0-33.0) pg MCHC 34.0 (31.0-36.0) g/dl RDW 12.2 (11.0-16.0) % Plt Count 336 (160-400) X10*3/uL MPV 9.3 L (9.4-12.4) fL Immature Gran % (Auto) 0.4 (0.0-0.4) % Neut % (Auto) 38.0 L (45-73) % Lymph % (Auto) 47.7 H (20-40) % [place] % (Auto) 12.7 H (2-11) % Eos % (Auto) 0.6 (0-4) % Baso % (Auto) 0.6 (0-2) % Lymph # (Auto) 4.3 (1.2-4.9) X10*3/uL [place] # (Auto) 1.2 (0.1-1.2) X10*3/uL Eos # (Auto) 0.1 (0.0-0.4) X10*3/uL Baso # (Auto) 0.1 (0.0-0.2) X10*3/uL Abs Immat Gran (auto) 0.04 H (0.00-0.03) X10*3/uL Absolute Neuts (auto) 3.4 (2.0-8.3) x10*3/uL Absolute Nucleated RBC 0.000 (0.0-0.012) X10*3/uL Nucleated RBC % (auto) 0.0 (0.0-0.2) /100WBC Sodium 144 (135-145) mmol/L Potassium 3.9 (3.3-5.1) mmol/L Chloride 109 H (96-108) mmol/L Carbon Dioxide 23 (22-29) mmol/L Anion Gap 16 (12-20) BUN 14 (9-16) mg/dL Creatinine 1.26 (0.5-1.4) mg/dL Estim Creat Clear Calc 68.5 Estimated GFR 58 POC Glucose 127 H (60-115) mg/dL Random Glucose 164 H (60-115) mg/dL Calcium 9.4 (8.4-10.2) mg/dL Total Bilirubin 0.2 (0.0-1.0) mg/dL AST 41 H (5-37) U/L ALT 39 (0-40) U/L Alkaline Phosphatase 71 (39-117) U/L Total Protein 8.4 H (6.5-8.0) g/dL Albumin 4.7 (3.5-5.0) g/dL Urine Color Yellow Urine Appearance Clear Urine pH 7.5 (5.0-9.0) Ur Specific [place] 1.020 (1.005-1.025) Urine Protein Trace (Neg-Trace) mg/dL Urine Glucose (UA) Negative (Negative) mg/dL Urine Ketones Trace (Negative) mg/dL Urine Blood Negative (Negative) Urine Nitrite Negative (Negative) Ur Leukocyte Esterase Small (1+) H (Negative) Urine RBC 0-2 (0-2) /HPF Urine WBC 0-5 (0-5) /HPF Ur Squamous Epith Cells 0-2 (0-2) /HPF Urine Bacteria None Seen (None Seen) Hyaline Casts 0-2 (0-2) /LPF Urine Opiates Screen Not Detected (Not Detect) Urine Fentanyl Screen Not Detected (Not Detect) Ur Barbiturates Screen Not Detected (Not Detect) Ur Phencyclidine Scrn Not Detected (Not Detect) Ur Amphetamines Screen Not Detected (Not Detect) U Benzodiazepines Scrn Not Detected (Not Detect) Urine Cocaine Screen Not Detected (Not Detect) U Marijuana (THC) Screen Not Detected (Not Detect) Ethyl Alcohol 124 mg/dL COVID-19 (ALISHA) Negative (Negative) COVID-19 Clin Com See Note External Record Review External record reviewed: Inpatient record Previous inpatient record reviewed Chronic Conditions Depression anxiety alcohol abuse Social Determinants Patient?s care significantly limited by Social Determinants of Health including: Alcoholism and drug addiction in family Discharge Plan Discharge Clinical Impression: Depression, Anxiety Patient Disposition: Still a Patient Prescriptions: No Action tamsulosin [Flomax] 0.4 mg Capsule 0.4 mg PO BEDTIME omeprazole 20 mg Capsule,Delayed Release(Dr/Ec) 20 mg PO BID@0630,1630 albuterol sulfate [Ventolin HFA] 90 mcg/actuation Hfa Aerosol Inhaler 2 puff INHALATION Q4H PRN (Reason: Shortness Of Breath) trazodone 150 mg tablet 150 mg PO BEDTIME PRN (Reason: insomnia) clonazepam 2 mg tablet 2 mg PO BEDTIME duloxetine 60 mg capsule,delayed release(DR/EC) 60 mg PO DAILY lisinopril 10 mg tablet 10 mg PO DAILY dorzolamide-timolol 22.3-6.8 mg/mL drops 1 drp ophthalmic (eye) BID loratadine 10 mg tablet 10 mg PO DAILY fluticasone propion-salmeterol [Wixela Inhub] 250-50 mcg/dose blister with device 1 ea inhalation BID ascorbic acid (vitamin C) [Vitamin C] 1,000 mg Tablet 1,000 mg PO DAILY vitamin A 2,400 mcg Capsule 2,400 mcg PO DAILY zinc acetate 50 mg (zinc) Capsule 50 mg PO DAILY aspirin 81 mg tablet,delayed release (DR/EC) 81 mg PO DAILY glimepiride 1 mg tablet 1 mg PO DAILY ropinirole 0.5 mg tablet 0.5 mg PO BEDTIME verapamil 100 mg capsule, [address] 100 mg PO BEDTIME montelukast 10 mg tablet 10 mg PO BEDTIME fluticasone propionate 50 mcg/actuation spray,suspension 2 spray intranasal DAILY PRN (Reason: Allergic Symptoms) vitamin E 268 mg (400 unit) Capsule 268 mg PO DAILY rosuvastatin 40 mg tablet 40 mg PO BEDTIME cholecalciferol (vitamin D3) [Vitamin D3] 50 mcg (2,000 unit) capsule 50 mcg PO DAILY Interventions: [place]-Suicide Risk Severity Scale Last Done: 06/05/23 14:43
[2023-06-05] MEDS: clonazePAM 1 MG TABLET 2 MG PO ×2 (07:39→20:06)
[2023-06-05 07:45] LABS: MANUAL DIFF FLAG NO
[2023-06-05 07:47] LABS: Basophils Absolute Auto 0.1 X10*3/uL (0.0-0.2); Basophils Percent Auto 0.6 % (0-2); Eosinophils Absolute Auto 0.1 X10*3/uL (0.0-0.4); Eosinophils Percent Auto 0.6 % (0-4); Hematocrit 43.5 % (42.0-52.0); Hemoglobin 14.8 g/dl (14.0-18.0); Imm Gran Abs Auto 0.04 X10*3/uL (0.00-0.03); Imm Gran Pct Auto 0.4 % (0.0-0.4); Lymphocytes Absolute Auto 4.3 X10*3/uL (1.2-4.9); Lymphocytes Percent Auto 47.7 % (20-40); Mean Corpuscular Hemoglobin 29.5 pg (27.0-33.0); Mean Corpuscular Volume 86.7 fL (80.0-98.0); Mean Platelet Volume 9.3 fL (9.4-12.4); Monocytes Absolute Auto 1.2 X10*3/uL (0.1-1.2); Monocytes Percent Auto 12.7 % (2-11); Neutrophils Absolute Auto 3.4 x10*3/uL (2.0-8.3); Platelet Count 336 X10*3/uL (160-400); Red Blood Count 5.02 X10*6/uL (4.60-5.80); Red Cell Distribution Width 12.2 % (11.0-16.0)
--- NOTE | 2023-06-05 07:47 | PC.NURSE ---
patient a&o, speaking in full sentences, pt tearful upon speaking states he is very anxious and has not been taking his medication as he has a problem reading as well as vision issues. 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 pt medicated per order, labs drawn, covid swab obtained, rounding checks being performed, will continue to monitor.
[2023-06-05 08:01] LABS: Alanine Aminotransferase 39 U/L (0-40); Albumin Level 4.7 g/dL (3.5-5.0); Alkaline Phosphatase 71 U/L (39-117); Anion Gap 16 (12-20); Aspartate Amino Transferase 41 U/L (5-37); Bilirubin Total 0.2 mg/dL (0.0-1.0); Blood Urea Nitrogen 14 mg/dL (9-16); Calcium 9.4 mg/dL (8.4-10.2); Carbon Dioxide 23 mmol/L (22-29); Chloride 109 mmol/L (96-108); Creatinine Clr Calc Pharmacy 68.5; Estimated Glomerular Filt Rate 58; Ethanol 124 mg/dL; Glucose Random 164 mg/dL (60-115); Potassium 3.9 mmol/L (3.3-5.1); Sodium 144 mmol/L (135-145); Total Protein 8.4 g/dL (6.5-8.0)
[2023-06-05 08:05] LABS: COVID-19 Test Negative (Negative); IDNOW Serial# 6674DD1D
[2023-06-05] MEDS: Ondansetron ODT 4 MG TAB.RAPDIS TRANSLINGU ×2 (08:53→13:37)
--- NOTE | 2023-06-05 09:41 | PC.NURSE ---
patient is pacing throughout the unit and hyperventilating, dr meza was notified pt has not settled despite being medicated.
[2023-06-05 10:21] LABS: Amphetamine Screen Urine Not Detected (Not Detect); Barbiturates, Urine Not Detected (Not Detect); Benzodiazepines Screen Urine Not Detected (Not Detect); Cannabinoid Screen Urine Not Detected (Not Detect); Cocaine Screen Urine Not Detected (Not Detect); Fentanyl, urine Not Detected (Not Detect); Opiate Screen Urine Not Detected (Not Detect); Phencyclidine Screen Urine Not Detected (Not Detect)
[2023-06-05 10:22] LABS: Appearance Urine Clear; Color Urine Yellow; Glucose Urine UA Negative (Negative); Leukocyte Esterase Urine Small (1+) (Negative); Nitrite Urine Negative (Negative); PH 7.5 (5.0-9.0); UMIC TRIGGER UACC YES; Urine Blood Negative (Negative); Urine Ketones Trace mg/dL (Negative); Urine Protein Trace mg/dL (Neg-Trace)
--- NOTE | 2023-06-05 10:22 | PHA.MEDREC ---
Pharmacy Consult ? Medication Reconciliation Pharmacy has completed the medication reconciliation. List sent to pharmacy
[2023-06-05 10:34] LABS: Bacteria Urine None Seen (None Seen); Hyaline Casts Urine 0-2 /LPF (0-2); RBC Urine 0-2 /HPF (0-2); Squamous Epithelial Cell Urine 0-2 /HPF (0-2); UACC Culture Trigger YES; WBC Urine 0-5 /HPF (0-5)
--- NOTE | 2023-06-05 10:49 | PC.NURSE ---
care team spoke with patient, they requested an ekg for admission
--- NOTE | 2023-06-05 12:56 | MHC.EDTECH ---
pt refused lunch tray at this time stating I don't want it as the reason. HUANG Worley made aware
[2023-06-05 13:02] LABS: Glucose, Whole Blood 127 mg/dL (60-115)
[2023-06-05 13:06] VITALS: BP 142/87; PULSE 99; RESP 18; TEMP 36.8; O2SAT 99
[2023-06-05] MEDS: LORazepam 1 MG TABLET 2 MG PO (13:37)
--- NOTE | 2023-06-05 13:38 | PC.NURSE ---
pt medicated for ciwa of 14, pt willingly took medications to help, daughter briefly visited, pt became very tearful upon her leaving.
--- NOTE | 2023-06-05 14:42 | PC.NURSE ---
patient was moved from room 1 to room 8 for hospital convenience, pt calm and cooperative at this time.
--- NOTE | 2023-06-05 15:33 | PC.NURSE ---
report given to M3
[2023-06-05 16:15] VITALS: BP 158/82; PULSE 87; TEMP 36.2; O2SAT 97
--- NOTE | 2023-06-05 17:11 | PC.ADMIT ---
Addendum entered by Nuria Mcgee RN 06/05/23 17:59: CIWA assessed upon admission, pt scored a 6. Addendum entered by Nuria Mcgee RN 06/05/23 17:31: Pt denies alcohol use, states his last drink was 1-2 beers months ago. Pt was on a CIWA in the Pod and scored a 14. Original Note: Milind is a 58-year-old Syriac-speaking male admitted [place] [facility] to [facility] on a CV for treatment of SI with plan to cut himself. Tox screen negative, pt denies substance use. RN utilized bender machine for admission assessment. Pt is alert, oriented, pleasant and cooperative. Skin check complete, pt has superficial self-inflicted scars on his bilateral arms. Pt's mood is depressed with congruent affect and crying at times. Pt endorses both AH/VH of people who are passing by. Thought process is linear and organized. Pt currently denies SI/HI and feels safe on the unit but will reach out to staff if thoughts occur. Pt reports 29lb weight loss and did not want to order any food for his meals because I'm too anxious to eat. Pt reports medical hx of sleep apnea, asthma, diabetes, HTN, dizziness, and fell a month ago and fractured his ribs, pt still experiences chest discomfort. Pt placed on 15 minute safety checks.
--- NOTE | 2023-06-05 17:31 | PC.NURSE ---
Pt refused flu vaccine, stated he's already been vaccinated
--- NOTE | 2023-06-05 17:52 | PC.NURSE ---
Pt's daughter Eryn phone number: [phone]
[2023-06-05] MEDS: Omeprazole 20 MG CAPSULE.DR PO (18:34)
[2023-06-05 19:45] VITALS: BP 195/124; PULSE 97; TEMP 36.6; O2SAT 98
[2023-06-05] MEDS: Tamsulosin HCL 0.4 MG CAPSULE PO (20:06)
[2023-06-05] MEDS: Atorvastatin Calcium 80 MG TABLET PO (20:06)
[2023-06-05] MEDS: Montelukast Sodium 10 MG TABLET PO (20:06)
[2023-06-05] MEDS: rOPINIRole HCL 0.5 MG TABLET PO (20:06)
[2023-06-05 20:55] VITALS: BP 143/90; PULSE 68
[2023-06-05 23:32] VITALS: BP 138/81; PULSE 72; O2SAT 98
[2023-06-05 23:40] LABS: Glucose, Whole Blood 112 mg/dL (60-115)
[2023-06-05] MEDS: Albuterol Sulfate 90 MCG 8 GM INHALER 2 PUFF INHALE (23:42)
[2023-06-05] MEDS: traZODone HCL 50 MG TABLET 150 MG PO (23:43)
[2023-06-05] MEDS: Dorzolamide/Timolo 2.23%/0.68% 10 ML DRBTL 1 DROP EYE-BOTH (23:44)
[2023-06-06 03:05] VITALS: BP 139/79; PULSE 61; TEMP 36.3; O2SAT 95
[2023-06-06] MEDS: hydrOXYzine HCL 25 MG TABLET PO ×3 (03:07→22:31)
[2023-06-06] MEDS: traZODone HCL 50 MG TABLET PO (03:07)
[2023-06-06] MEDS: Acetaminophen 325 MG TABLET 650 MG PO ×2 (03:08→22:36)
[2023-06-06 07:56] LABS: Estimated Average Glucose 117 mg/dL; Hemoglobin A1c % 5.7 % (<6.0)
[2023-06-06 08:06] LABS: Cholesterol 132 mg/dL (<200); HDL Cholesterol 51 mg/dL (>40); LDL Cholesterol Calculated 56 mg/dL (<100); Triglycerides 126 mg/dL (<150)
[2023-06-06 08:24] LABS: Free T4 (Free Thyroxine) 0.77 ng/dL (0.71-1.85); Thyroid Stimulating Hormone 0.84 uIU/mL (0.32-4.0)
[2023-06-06 08:36] LABS: Folate 14.6 ng/mL (> or = 4.0); Vitamin B12 593 pg/mL (200-900)
[2023-06-06 09:14] LABS: Glucose, Whole Blood 143 mg/dL (60-115)
[2023-06-06 09:20] VITALS: BP 138/78; PULSE 76; RESP 16; TEMP 36.7; O2SAT 98
[2023-06-06] MEDS: lisinopriL 10 MG TABLET PO (09:22)
[2023-06-06] MEDS: DULoxetine HCl 60 MG CAPSULE.DR PO (09:22)
[2023-06-06] MEDS: Ascorbic Acid 500 MG TABLET 1000 MG PO (09:22)
[2023-06-06] MEDS: Cholecalciferol (Vitamin D3) 25 MCG TABLET 50 MCG PO (09:22)
[2023-06-06] MEDS: Loratadine 10 MG TABLET PO (09:22)
[2023-06-06] MEDS: Omeprazole 20 MG CAPSULE.DR PO ×2 (09:22→16:32)
[2023-06-06] MEDS: Aspirin Enteric Coated 81 MG TABLET.DR PO (09:23)
[2023-06-06] MEDS: glipiZIDE 5 MG TABLET 2.5 MG PO (09:23)
[2023-06-06] MEDS: Dorzolamide/Timolo 2.23%/0.68% 10 ML DRBTL 1 DROP EYE-BOTH ×2 (09:49→22:35)
[2023-06-06] MEDS: Fluticasone/Vilanterol 100/25 BLST.W.DEV 1 PUFF INHALE (09:49)
--- NOTE | 2023-06-06 12:08 | P.HPPS_ITS ---
HPI Date of Service: 06/06/23 Chief Complaint: Mental Health Crisis HPI Narrative: per CARE team eval, pt was BIBA from his apartment after c/o SI with plan to cut himself. he endorsed AVH, rib pain, worsened anxiety and depression in recent weeks, and lack of medication compliance for a month now. he had had a VNA, but she only spoke bangladeshi so he did not want her, and he recently lost his glasses so he is unable to read the prescription bottles. he described himself as a chronic worrier, with recent stressors of finding out his brother had been arrested and chronic conflict with his , from whom he is estranged; there are divorce proceedings scheduled for this October. he did acknowledge a specific trigger for his admission, but he was evasive in identifying it. he expressed the desire to get back on his prior medications regimen. pt seen with medical interpreter. on interview with MD, pt denied any alcohol use or any h/o alcohol use despite CARE team having documented h/o binge drinking. also, per ED records, pt's BAL in ED was 124 on presentation. just prior to interview he had experienced an episode of diarrhea, and his BPs had been elevated overnight. he was sparse in his answers and not forthcoming regarding traumatic experiences or his reported suicide attempts. on being asked his reason for asking for help in coming to the hospital, he variably said he had no problems to asking for help getting another VNA and new housing, to getting help with panic attacks and anxiety when he was focused to discuss symptom targets. he reported he is illiterate, and it appeared the gis scientist had some difficulty understanding his language at points. he requested to get back on his prior regimen, and plan was made to do so. Past Psychiatric History: hosps: 3 prior SA: x2 many years ago, declined to discuss method or circumstances SIB: h/o cutting. started a long time ago. HIB: denies outpt: reports treaters at [facility]. Dr. Buckley for meds (Q3m), radha for therapy (Q1-2 months). Medical Evaluation Reviewed: Yes [facility] Medical History (Updated 06/06/23 @ 21:52 by Ankit Leon MD) GERD (gastroesophageal reflux disease) Asthma Anxiety Hyperlipidemia Hypertension BRI (obstructive sleep apnea) Alcohol abuse Suicidal ideation Diverticulosis Surgical History History of laparoscopic cholecystectomy Family History: father - anxiety/depression. h/o inpatient care many times. brother - also like me Social History: lives alone in a room in a boarding home, where he shares a kitchen and bath with numerous other people. in the midst of divorce from his of 14 years, who reportedly left him about 5 months ago. hearing scheduled for Oct, 2023. has 3 adult children. his daughter brings him food at his boarding house. born in [place] and relocated to [facility] at 27 yo. has 16 brothers. reported good relationship with his parents and a good childhood. Substance History: tobacco - denies alcohol - h/o binge drinking, pt denies current consumption or any h/o problem. per ED notes, EtOH 124. cannabis - denies opioids - denies cocaine - denies denies the use of all substances Trauma History: no h/o physical or sexual abuse, no other traumas identified. he did describe learning of his nephew's being shot in [place] as being traumatic. Diagnostics Vital Signs (24Hr): Vital Signs - 24 hr 06/05/23 13:06 06/05/23 16:15 06/05/23 19:45 Temperature 98.2 F 97.1 F 97.8 F Pulse Rate 99 87 97 Respiratory Rate 18 Blood Pressure 142/87 H 158/82 H 195/124 H Pulse Oximetry 99 97 98 Oxygen Delivery Method Room Air Room Air Room Air 06/05/23 20:55 06/05/23 23:32 06/06/23 03:05 Temperature 97.4 F Pulse Rate 68 72 61 Respiratory Rate Blood Pressure 143/90 H 138/81 139/79 Pulse Oximetry 98 95 Oxygen Delivery Method Room Air Room Air 06/06/23 09:20 Temperature 98.0 F Pulse Rate 76 Respiratory Rate 16 Blood Pressure 138/78 Pulse Oximetry 98 Oxygen Delivery Method Room Air BMI result Body Mass Index 37.4 Labs 06/05/23 07:41 06/05/23 07:41 Labs: Laboratory Results - last 48 hr 06/05/23 06/05/23 06/05/23 07:41 09:56 12:53 WBC 9.0 RBC 5.02 Hgb 14.8 Hct 43.5 MCV 86.7 MCH 29.5 MCHC 34.0 RDW 12.2 Plt Count 336 MPV 9.3 L Immature Gran % (Auto) 0.4 Neut % (Auto) 38.0 L Lymph % (Auto) 47.7 H Am[place] % (Auto) 12.7 H Eos % (Auto) 0.6 Baso % (Auto) 0.6 Lymph # (Auto) 4.3 [place] # (Auto) 1.2 Eos # (Auto) 0.1 Baso # (Auto) 0.1 Abs Immat Gran (auto) 0.04 H Absolute Neuts (auto) 3.4 Absolute Nucleated RBC 0.000 Nucleated RBC % (auto) 0.0 Sodium 144 Potassium 3.9 Chloride 109 H Carbon Dioxide 23 Anion Gap 16 BUN 14 Creatinine 1.26 Estim Creat Clear Calc 68.5 Estimated GFR 58 POC Glucose 127 H Random Glucose 164 H Estimat Average Glucose Hemoglobin A1c % Calcium 9.4 Total Bilirubin 0.2 AST 41 H ALT 39 Alkaline Phosphatase 71 Total Protein 8.4 H Albumin 4.7 Triglycerides Cholesterol LDL Cholesterol, Calc HDL Cholesterol Vitamin B12 Folate TSH Free T4 Urine Color Yellow Urine Appearance Clear Urine pH 7.5 Ur Specific [place] 1.020 Urine Protein Trace Urine Glucose (UA) Negative Urine Ketones Trace Urine Blood Negative Urine Nitrite Negative Ur Leukocyte Esterase Small (1+) H Urine RBC 0-2 Urine WBC 0-5 Ur Squamous Epith Cells 0-2 Urine Bacteria None Seen Hyaline Casts 0-2 Urine Opiates Screen Not Detected Urine Fentanyl Screen Not Detected Ur Barbiturates Screen Not Detected Ur Phencyclidine Scrn Not Detected Ur Amphetamines Screen Not Detected U Benzodiazepines Scrn Not Detected Urine Cocaine Screen Not Detected U Marijuana (THC) Screen Not Detected Ethyl Alcohol 124 COVID-19 (ALISHA) Negative COVID-19 Clin Com See Note 06/05/23 06/06/23 06/06/23 23:35 07:24 09:09 WBC RBC Hgb Hct MCV MCH MCHC RDW Plt Count MPV Immature Gran % (Auto) Neut % (Auto) Lymph % (Auto) Am[place] % (Auto) Eos % (Auto) Baso % (Auto) Lymph # (Auto) [place] # (Auto) Eos # (Auto) Baso # (Auto) Abs Immat Gran (auto) Absolute Neuts (auto) Absolute Nucleated RBC Nucleated RBC % (auto) Sodium Potassium Chloride Carbon Dioxide Anion Gap BUN Creatinine Estim Creat Clear Calc Estimated GFR POC Glucose 112 143 H Random Glucose Estimat Average Glucose 117 Hemoglobin A1c % 5.7 Calcium Total Bilirubin AST ALT Alkaline Phosphatase Total Protein Albumin Triglycerides 126 Cholesterol 132 LDL Cholesterol, Calc 56 HDL Cholesterol 51 Vitamin B12 593 Folate 14.6 TSH 0.84 Free T4 0.77 Urine Color Urine Appearance Urine pH Ur Specific [place] Urine Protein Urine Glucose (UA) Urine Ketones Urine Blood Urine Nitrite Ur Leukocyte Esterase Urine RBC Urine WBC Ur Squamous Epith Cells Urine Bacteria Hyaline Casts Urine Opiates Screen Urine Fentanyl Screen Ur Barbiturates Screen Ur Phencyclidine Scrn Ur Amphetamines Screen U Benzodiazepines Scrn Urine Cocaine Screen U Marijuana (THC) Screen Ethyl Alcohol COVID-19 (ALISHA) COVID-19 Clin Com Meds/Allergies Meds Home Medications Medication Instructions Recorded Confirmed Type albuterol sulfate 90 mcg/actuation 2 puff inhalation Q4H PRN 06/22/20 06/05/23 History aerosol inhaler (Ventolin HFA) Shortness Of Breath omeprazole 20 mg capsule,delayed 20 mg PO BID@0630,1630 06/22/20 06/05/23 History release tamsulosin 0.4 mg capsule (Flomax) 0.4 mg PO BEDTIME 06/22/20 06/05/23 History clonazepam 2 mg tablet 2 mg PO BEDTIME 03/26/23 06/05/23 History dorzolamide 22.3 mg-timolol 6.8 1 drp ophthalmic (eye) BID 03/26/23 06/05/23 History mg/mL eye drops duloxetine 60 mg capsule,delayed 60 mg PO DAILY 03/26/23 06/05/23 History release lisinopril 10 mg tablet 10 mg PO DAILY 03/26/23 06/05/23 History loratadine 10 mg tablet 10 mg PO DAILY 03/26/23 06/05/23 History trazodone 150 mg tablet 150 mg PO BEDTIME PRN insomnia 03/26/23 06/05/23 History ascorbic acid (vitamin C) 1,000 mg 1,000 mg PO DAILY 06/05/23 06/05/23 History tablet (Vitamin C) aspirin 81 mg tablet,delayed 81 mg PO DAILY 06/05/23 06/05/23 History release cholecalciferol (vitamin D3) 50 50 mcg PO DAILY 06/05/23 06/05/23 History mcg (2,000 unit) capsule (Vitamin D3) fluticasone 250 mcg-salmeterol 50 1 ea inhalation BID 06/05/23 06/05/23 History mcg/dose blistr powdr for inhalation (Iman Inhub) fluticasone propionate 50 2 spray intranasal DAILY PRN 06/05/23 06/05/23 History mcg/actuation nasal Allergic Symptoms spray,suspension glimepiride 1 mg tablet 1 mg PO DAILY 06/05/23 06/05/23 History montelukast 10 mg tablet 10 mg PO BEDTIME 06/05/23 06/05/23 History ropinirole 0.5 mg tablet 0.5 mg PO BEDTIME 06/05/23 06/05/23 History rosuvastatin 40 mg tablet 40 mg PO BEDTIME 06/05/23 06/05/23 History verapamil 100 mg capsule 24hr 100 mg PO BEDTIME 06/05/23 06/05/[address],ext.release vitamin A 2,400 mcg capsule 2,400 mcg PO DAILY 06/05/23 06/05/23 History vitamin E 268 mg (400 unit) capsule 268 mg PO DAILY 06/05/23 06/05/23 History zinc acetate 50 mg (zinc) capsule 50 mg PO DAILY 06/05/23 06/05/23 History Allergies Allergies Allergy/AdvReac Type Severity Reaction Status Date / Time olanzapine [From ZYPREXA] Allergy Unknown UNKNOWN Verified 06/05/23 07:24 mirtazapine [From REMERON] AdvReac Unknown PAIN IN Verified 06/05/23 07:24 LEGS sertraline [From ZOLOFT] AdvReac Unknown ANXIETY Verified 06/05/23 07:24 gabapentin AdvReac Unknown Verified 06/05/23 07:24 metformin AdvReac Unknown Verified 06/05/23 07:24 Mental Status Exam Mental Status Exam Narrative: seen with medical interpreter. calm, cooperative. dressed in [facility]. cooperative, general PMR. speech decr in rate, amount, loudness. thoughts linear and logical. affect labile. mood better than yesterday. denies SI/HI/SIBI. endorses AVH of people he knows saying things he cannot understand. Assessment & Plan Assessment & Plan (1) Alcohol use disorder: Status: Acute Code(s): F10.90 - Alcohol use, unspecified, uncomplicated (2) Anxiety: Status: Acute Code(s): F41.9 - Anxiety disorder, unspecified (3) Depression: Status: Acute Code(s): F32.A - Depression, unspecified (4) BRI (obstructive sleep apnea): Status: Acute Code(s): G47.33 - Obstructive sleep apnea (adult) (pediatric) Plan restart home medications regimen, titrating up on meds as indicated. CIWA with ativan PRN for potential alcohol withdrawal syndrome. pt has not been at all forthcoming regarding his alcohol use. Patient educated on: diagnosis, medication risk/benefits and substance abuse Reason for continued inpatient stay Substantial Risk for: inability to function, rapid decompensation and med/psych decompensation Statement Statement: I have reviewed the history and physical and performed a pertinent examination on my patient. No changes have occurred unless specified. If the History and Physical was not performed prior to admission, the Hospitalist's service will be consulted for completing the admission physical. Time Spent With Patient Time: Total time managing care of this patient today __75__ minutes.
[2023-06-06 22:02] VITALS: BP 115/74; PULSE 71; RESP 16; TEMP 36.3; O2SAT 98
[2023-06-06 22:17] LABS: Glucose, Whole Blood 72 mg/dL (60-115)
[2023-06-06] MEDS: Montelukast Sodium 10 MG TABLET PO (22:30)
[2023-06-06] MEDS: rOPINIRole HCL 0.5 MG TABLET PO (22:30)
[2023-06-06] MEDS: Atorvastatin Calcium 80 MG TABLET PO (22:31)
[2023-06-06] MEDS: Tamsulosin HCL 0.4 MG CAPSULE PO (22:31)
[2023-06-06] MEDS: traZODone HCL 50 MG TABLET 150 MG PO (22:32)
[2023-06-06] MEDS: clonazePAM 1 MG TABLET 2 MG PO (22:32)
[2023-06-07] MEDS: Omeprazole 20 MG CAPSULE.DR PO ×2 (07:13→16:22)
[2023-06-07 08:05] LABS: Glucose, Whole Blood 127 mg/dL (60-115)
[2023-06-07 09:32] VITALS: BP 130/75; PULSE 67; RESP 16; TEMP 36.3; O2SAT 98
[2023-06-07] MEDS: Ascorbic Acid 500 MG TABLET 1000 MG PO (10:45)
[2023-06-07] MEDS: glipiZIDE 5 MG TABLET 2.5 MG PO (10:45)
[2023-06-07] MEDS: DULoxetine HCl 60 MG CAPSULE.DR PO (10:45)
[2023-06-07] MEDS: Cholecalciferol (Vitamin D3) 25 MCG TABLET 50 MCG PO (10:45)
[2023-06-07] MEDS: Aspirin Enteric Coated 81 MG TABLET.DR PO (10:45)
[2023-06-07] MEDS: Loratadine 10 MG TABLET PO (10:46)
[2023-06-07] MEDS: lisinopriL 10 MG TABLET PO (10:46)
[2023-06-07] MEDS: Dorzolamide/Timolo 2.23%/0.68% 10 ML DRBTL 1 DROP EYE-BOTH ×2 (10:46→20:40)
[2023-06-07] MEDS: Fluticasone/Vilanterol 100/25 BLST.W.DEV 1 PUFF INHALE (10:46)
[2023-06-07 10:52] VITALS: BP 124/78; PULSE 78
[2023-06-07 16:37] VITALS: BP 122/70; PULSE 67; O2SAT 98
--- NOTE | 2023-06-07 20:28 | P.PNPSI_ITS ---
Subjective Subjective Date of Service: 06/07/23 Reason For Visit: Mental Health Crisis Interim History: feeling good. denies SI/SIBI/AVH. would like to continue current mgmt. asks for CPAP. per staff, incontinent of stool yesterday. CIWAs 2, 3, 4. taking meds. dep 5, anx 7. no SI. isolative. slept 7-8 hrs. +AH eves, diminished. Mental Status Exam Mental Status Exam Narrative: seen with literature professor. calm, cooperative. dressed in [facility]. cooperative, general PMR. speech decr in rate, amount, loudness. thoughts linear and logical. affect labile. mood good. denies SI/HI/SIBI/AVH. Diagnostics Vital Signs (24Hr): Vital Signs - 24 hr 06/06/23 22:02 06/07/23 09:32 06/07/23 10:52 Temperature 97.3 F 97.4 F Pulse Rate 71 67 78 Respiratory Rate 16 16 Blood Pressure 115/74 130/75 124/78 Pulse Oximetry 98 98 Oxygen Delivery Method Room Air Room Air 06/07/23 16:37 Temperature Pulse Rate 67 Respiratory Rate Blood Pressure 122/70 Pulse Oximetry 98 Oxygen Delivery Method Room Air BMI result Body Mass Index 37.4 Labs 06/05/23 07:41 06/05/23 07:41 Labs: Laboratory Results - last 48 hr 06/05/23 06/06/23 06/06/23 23:35 07:24 09:09 POC Glucose 112 143 H Estimat Average Glucose 117 Hemoglobin A1c % 5.7 Triglycerides 126 Cholesterol 132 LDL Cholesterol, Calc 56 HDL Cholesterol 51 Vitamin B12 593 Folate 14.6 TSH 0.84 Free T4 0.77 06/06/23 06/07/23 22:06 07:21 POC Glucose 72 127 H Estimat Average Glucose Hemoglobin A1c % Triglycerides Cholesterol LDL Cholesterol, Calc HDL Cholesterol Vitamin B12 Folate TSH Free T4 Medications Medications Current Medications Acetaminophen (Acetaminophen 325 Mg Tablet) 650 mg PO Q6H PRN PRN Reason: Headache/Pain Mild Scale (1-3) Last Admin: 06/06/23 22:36 Dose: 650 mg Al Hydroxide/Mg Hydroxide (Magnesium Hydrox/Alum Hydrox 30 Ml Oral.Susp) 30 ml PO Q6H PRN PRN Reason: Heartburn/Nausea Albuterol Sulfate (Albuterol Sulfate 90 Mcg 8 Gm Inhaler) 2 puff INHALE Q4H PRN PRN Reason: Shortness Of Breath Last Admin: 06/05/23 23:42 Dose: 2 puff Ascorbic Acid (Ascorbic Acid 500 Mg Tablet) 1,000 mg PO DAILY [facility] Last Admin: 06/07/23 10:45 Dose: 1,000 mg Aspirin (Aspirin Enteric Coated 81 Mg Tablet.) 81 mg PO DAILY [facility] Last Admin: 06/07/23 10:45 Dose: 81 mg Atorvastatin Calcium (Atorvastatin Calcium 80 Mg Tablet) 80 mg PO BEDTIME [facility] Last Admin: 06/06/23 22:31 Dose: 80 mg Clonazepam (Clonazepam 1 Mg Tablet) 2 mg PO BEDTIME [facility] Last Admin: 06/06/23 22:32 Dose: 2 mg Dorzolamide/Timolol (Dorzolamide/Timolo 2.23%/0.68% 10 Ml Drbtl) 1 drop EYE- BOTH BID [facility] Last Admin: 06/07/23 10:46 Dose: 1 drop Duloxetine HCl (Duloxetine Hcl 60 Mg Capsule.) 60 mg PO DAILY [facility] Last Admin: 06/07/23 10:45 Dose: 60 mg Fluticasone Propionate (Fluticasone Propionate Nasal 16 Gm [place]) 2 spray NOSTRIL-B DAILY PRN PRN Reason: Allergic Symptoms Fluticasone/Vilanterol (Fluticasone/Vilanterol 100/25 Blst.W.Dev) 1 puff INHALE DAILY [facility] Last Admin: 06/07/23 10:46 Dose: 1 puff Glipizide (Glipizide 5 Mg Tablet) 2.5 mg PO DAILY [facility] Last Admin: 06/07/23 10:45 Dose: 2.5 mg Hydroxyzine HCl (Hydroxyzine Hcl 25 Mg Tablet) 25 mg PO Q6H PRN PRN Reason: Anxiety Last Admin: 06/06/23 22:31 Dose: 25 mg Lisinopril (Lisinopril 10 Mg Tablet) 10 mg PO DAILY [facility]; Protocol Last Admin: 06/07/23 10:46 Dose: 10 mg Loratadine (Loratadine 10 Mg Tablet) 10 mg PO DAILY [facility] Last Admin: 06/07/23 10:46 Dose: 10 mg Lorazepam (Lorazepam 1 Mg Tablet) 1 mg PO Q2H PRN PRN Reason: CIWA 8-11 Lorazepam (Lorazepam 1 Mg Tablet) 2 mg PO Q2H PRN PRN Reason: CIWA 12-15 Lorazepam (Lorazepam 1 Mg Tablet) 3 mg PO Q2H PRN PRN Reason: CIWA > 15; and call Magnesium Hydroxide (Milk Of Magnesia 30 Ml Oral.Susp) 30 ml PO DAILY PRN PRN Reason: Constipation Montelukast Sodium (Montelukast Sodium 10 Mg Tablet) 10 mg PO BEDTIME [facility] Last Admin: 06/06/23 22:30 Dose: 10 mg Nicotine Polacrilex (Nicotine Polacrilex 2 Mg Gum) 4 mg BUCCAL Q2H PRN PRN Reason: Nicotine Cravings Non-Formulary Medication (Vitamin A) 2,400 mcg PO DAILY [facility] Non-Formulary Medication (Vitamin E) 268 mg PO DAILY [facility] Non-Formulary Medication (Zinc Acetate) 50 mg PO DAILY [facility] Omeprazole (Omeprazole 20 Mg Capsule.Dr) 20 mg PO BID@0630,1630 [facility] Last Admin: 06/07/23 16:22 Dose: 20 mg Ropinirole HCl (Ropinirole Hcl 0.5 Mg Tablet) 0.5 mg PO BEDTIME [facility] Last Admin: 06/06/23 22:30 Dose: 0.5 mg Tamsulosin HCl (Tamsulosin Hcl 0.4 Mg Capsule) 0.4 mg PO BEDTIME [facility] Last Admin: 06/06/23 22:31 Dose: 0.4 mg Trazodone HCl (Trazodone Hcl 50 Mg Tablet) 150 mg PO BEDTIME PRN PRN Reason: insomnia Last Admin: 06/06/23 22:32 Dose: 150 mg Trazodone HCl (Trazodone Hcl 50 Mg Tablet) 50 mg PO BEDTIME MRX1 PRN PRN Reason: Insomnia Last Admin: 06/06/23 03:07 Dose: 50 mg Verapamil HCl (Verapamil Hcl Sr 100 Mg Cap24h.Pct) 100 mg PO BEDTIME [facility]; Protocol Last Admin: 06/06/23 22:31 Dose: 100 mg Vitamin D (Cholecalciferol (Vitamin D3) 25 Mcg Tablet) 50 mcg PO DAILY [facility] Last Admin: 06/07/23 10:45 Dose: 50 mcg Allergies Allergies Allergy/AdvReac Type Severity Reaction Status Date / Time olanzapine [From ZYPREXA] Allergy Unknown UNKNOWN Verified 06/05/23 07:24 mirtazapine [From REMERON] AdvReac Unknown PAIN IN Verified 06/05/23 07:24 LEGS sertraline [From ZOLOFT] AdvReac Unknown ANXIETY Verified 06/05/23 07:24 gabapentin AdvReac Unknown Verified 06/05/23 07:24 metformin AdvReac Unknown Verified 06/05/23 07:24 Assessment & Plan Assessment & Plan (1) Alcohol use disorder: Status: Acute Code(s): F10.90 - Alcohol use, unspecified, uncomplicated (2) Anxiety: Status: Acute Code(s): F41.9 - Anxiety disorder, unspecified (3) Depression: Status: Acute Code(s): F32.A - Depression, unspecified (4) BRI (obstructive sleep apnea): Status: Acute Code(s): G47.33 - Obstructive sleep apnea (adult) (pediatric) Plan 06/06: restart home medications regimen, titrating up on meds as indicated. CIWA with ativan PRN for potential alcohol withdrawal syndrome. pt has not been at all forthcoming regarding his alcohol use. 06/07: continue current mgmt. improving daily. CPAP at [facility]. Reason for continued inpatient stay Substantial Risk for: inability to function and rapid decompensation Time Spent With Patient Time: Total time managing care of this patient today ____ minutes.
[2023-06-07] MEDS: rOPINIRole HCL 0.5 MG TABLET PO (20:41)
[2023-06-07] MEDS: clonazePAM 1 MG TABLET 2 MG PO (20:41)
[2023-06-07] MEDS: hydrOXYzine HCL 25 MG TABLET PO (20:41)
[2023-06-07] MEDS: Montelukast Sodium 10 MG TABLET PO (20:41)
[2023-06-07] MEDS: Tamsulosin HCL 0.4 MG CAPSULE PO (20:41)
[2023-06-07] MEDS: Atorvastatin Calcium 80 MG TABLET PO (20:41)
[2023-06-07 20:45] VITALS: BP 126/69; PULSE 64; RESP 14; TEMP 36.2; O2SAT 99
[2023-06-07 21:11] LABS: Glucose, Whole Blood 87 mg/dL (60-115)
[2023-06-07 23:33] VITALS: PULSE 64; O2SAT 98
[2023-06-08] MEDS: Omeprazole 20 MG CAPSULE.DR PO ×2 (06:49→18:23)
[2023-06-08 08:55] VITALS: BP 123/73; PULSE 70; RESP 16; TEMP 36.1; O2SAT 98
[2023-06-08 08:59] LABS: Glucose, Whole Blood 118 mg/dL (60-115)
[2023-06-08] MEDS: DULoxetine HCl 60 MG CAPSULE.DR PO (09:06)
[2023-06-08] MEDS: Fluticasone/Vilanterol 100/25 BLST.W.DEV 1 PUFF INHALE (09:06)
[2023-06-08] MEDS: Cholecalciferol (Vitamin D3) 25 MCG TABLET 50 MCG PO (09:06)
[2023-06-08] MEDS: Dorzolamide/Timolo 2.23%/0.68% 10 ML DRBTL 1 DROP EYE-BOTH (09:06)
[2023-06-08] MEDS: Ascorbic Acid 500 MG TABLET 1000 MG PO (09:06)
[2023-06-08] MEDS: Aspirin Enteric Coated 81 MG TABLET.DR PO (09:07)
[2023-06-08] MEDS: glipiZIDE 5 MG TABLET 2.5 MG PO (09:07)
[2023-06-08] MEDS: Loratadine 10 MG TABLET PO (09:07)
[2023-06-08] MEDS: lisinopriL 10 MG TABLET PO (09:07)
--- NOTE | 2023-06-08 18:51 | P.PNPSI_ITS ---
Subjective Subjective Date of Service: 06/08/23 Reason For Visit: Mental Health Crisis Interim History: seen with film maker. calm, cooperative. denies safety concerns or psychotic Sx. states he feels ready to discharge tomorrow. used CPAP last night, which worked well. per staff, CIWA 3, 2, 4 yesterday, 1 yesterday ravinder. dep/anx 5. slept 6-7 hours. Mental Status Exam Mental Status Exam Narrative: seen with film maker. calm, cooperative. dressed in [facility]. cooperative, general PMR. speech decr in rate, amount, loudness. thoughts linear and logical. affect constricted, hypo-intense, non-labile. mood fine. denies SI/HI/SIBI/AVH. Diagnostics Vital Signs (24Hr): Vital Signs - 24 hr 06/07/23 20:45 06/08/23 08:55 Temperature 97.2 F 97.0 F Pulse Rate 64 70 Respiratory Rate 14 16 Blood Pressure 126/69 123/73 Pulse Oximetry 99 98 Oxygen Delivery Method Room Air Room Air BMI result Body Mass Index 37.4 Labs 06/05/23 07:41 06/05/23 07:41 Labs: Laboratory Results - last 48 hr 06/06/23 06/07/23 06/07/23 22:06 07:21 21:05 POC Glucose 72 127 H 87 06/08/23 08:53 POC Glucose 118 H Medications Medications Current Medications Acetaminophen (Acetaminophen 325 Mg Tablet) 650 mg PO Q6H PRN PRN Reason: Headache/Pain Mild Scale (1-3) Last Admin: 06/06/23 22:36 Dose: 650 mg Al Hydroxide/Mg Hydroxide (Magnesium Hydrox/Alum Hydrox 30 Ml Oral.Susp) 30 ml PO Q6H PRN PRN Reason: Heartburn/Nausea Albuterol Sulfate (Albuterol Sulfate 90 Mcg 8 Gm Inhaler) 2 puff INHALE Q4H PRN PRN Reason: Shortness Of Breath Last Admin: 06/05/23 23:42 Dose: 2 puff Ascorbic Acid (Ascorbic Acid 500 Mg Tablet) 1,000 mg PO DAILY [facility] Last Admin: 06/08/23 09:06 Dose: 1,000 mg Aspirin (Aspirin Enteric Coated 81 Mg Tablet.Dr) 81 mg PO DAILY [facility] Last Admin: 06/08/23 09:07 Dose: 81 mg Atorvastatin Calcium (Atorvastatin Calcium 80 Mg Tablet) 80 mg PO BEDTIME [facility] Last Admin: 06/07/23 20:41 Dose: 80 mg Clonazepam (Clonazepam 1 Mg Tablet) 2 mg PO BEDTIME [facility] Last Admin: 06/07/23 20:41 Dose: 2 mg Dorzolamide/Timolol (Dorzolamide/Timolo 2.23%/0.68% 10 Ml Drbtl) 1 drop EYE- BOTH BID [facility] Last Admin: 06/08/23 09:06 Dose: 1 drop Duloxetine HCl (Duloxetine Hcl 60 Mg Capsule.Dr) 60 mg PO DAILY [facility] Last Admin: 06/08/23 09:06 Dose: 60 mg Fluticasone Propionate (Fluticasone Propionate Nasal 16 Gm Zearing) 2 spray NOSTRIL-B DAILY PRN PRN Reason: Allergic Symptoms Fluticasone/Vilanterol (Fluticasone/Vilanterol 100/25 Blst.W.Dev) 1 puff INHALE DAILY [facility] Last Admin: 06/08/23 09:06 Dose: 1 puff Glipizide (Glipizide 5 Mg Tablet) 2.5 mg PO DAILY [facility] Last Admin: 06/08/23 09:07 Dose: 2.5 mg Hydroxyzine HCl (Hydroxyzine Hcl 25 Mg Tablet) 25 mg PO Q6H PRN PRN Reason: Anxiety Last Admin: 06/07/23 20:41 Dose: 25 mg Lisinopril (Lisinopril 10 Mg Tablet) 10 mg PO DAILY [facility]; Protocol Last Admin: 06/08/23 09:07 Dose: 10 mg Loratadine (Loratadine 10 Mg Tablet) 10 mg PO DAILY [facility] Last Admin: 06/08/23 09:07 Dose: 10 mg Magnesium Hydroxide (Milk Of Magnesia 30 Ml Oral.Susp) 30 ml PO DAILY PRN PRN Reason: Constipation Montelukast Sodium (Montelukast Sodium 10 Mg Tablet) 10 mg PO BEDTIME [facility] Last Admin: 06/07/23 20:41 Dose: 10 mg Nicotine Polacrilex (Nicotine Polacrilex 2 Mg Gum) 4 mg BUCCAL Q2H PRN PRN Reason: Nicotine Cravings Non-Formulary Medication (Vitamin A) 2,400 mcg PO DAILY [facility] Non-Formulary Medication (Vitamin E) 268 mg PO DAILY [facility] Non-Formulary Medication (Zinc Acetate) 50 mg PO DAILY [facility] Omeprazole (Omeprazole 20 Mg Capsule.Dr) 20 mg PO BID@0630,1630 HUMBERTO Last Admin: 06/08/23 18:23 Dose: 20 mg Ropinirole HCl (Ropinirole Hcl 0.5 Mg Tablet) 0.5 mg PO BEDTIME [facility]O Last Admin: 06/07/23 20:41 Dose: 0.5 mg Tamsulosin HCl (Tamsulosin Hcl 0.4 Mg Capsule) 0.4 mg PO BEDTIME [facility]ERT[facility] Last Admin: 06/07/23 20:41 Dose: 0.4 mg Trazodone HCl (Trazodone Hcl 50 Mg Tablet) 150 mg PO BEDTIME PRN PRN Reason: insomnia Last Admin: 06/06/23 22:32 Dose: 150 mg Trazodone HCl (Trazodone Hcl 50 Mg Tablet) 50 mg PO BEDTIME MRX1 PRN PRN Reason: Insomnia Last Admin: 06/06/23 03:07 Dose: 50 mg Verapamil HCl (Verapamil Hcl Sr 100 Mg Cap24h.Pct) 100 mg PO BEDTIME HUMBERTO; Protocol Last Admin: 06/07/23 20:40 Dose: 100 mg Vitamin D (Cholecalciferol (Vitamin D3) 25 Mcg Tablet) 50 mcg PO DAILY HUMBERTO Last Admin: 06/08/23 09:06 Dose: 50 mcg Allergies Allergies Allergy/AdvReac Type Severity Reaction Status Date / Time olanzapine [From ZYPREXA] Allergy Unknown UNKNOWN Verified 06/05/23 07:24 mirtazapine [From REMERON] AdvReac Unknown PAIN IN Verified 06/05/23 07:24 LEGS sertraline [From ZOLOFT] AdvReac Unknown ANXIETY Verified 06/05/23 07:24 gabapentin AdvReac Unknown Verified 06/05/23 07:24 metformin AdvReac Unknown Verified 06/05/23 07:24 Assessment & Plan Assessment & Plan (1) Alcohol use disorder: Status: Acute Code(s): F10.90 - Alcohol use, unspecified, uncomplicated (2) Anxiety: Status: Acute Code(s): F41.9 - Anxiety disorder, unspecified (3) Depression: Status: Acute Code(s): F32.A - Depression, unspecified (4) BRI (obstructive sleep apnea): Status: Acute Code(s): G47.33 - Obstructive sleep apnea (adult) (pediatric) Plan 06/06: restart home medications regimen, titrating up on meds as indicated. CIWA with ativan PRN for potential alcohol withdrawal syndrome. pt has not been at all forthcoming regarding his alcohol use. 06/07: continue current mgmt. improving daily. CPAP at [facility]. 06/08: reports he is fine and ready to discharge tomorrow. denies psychotic Sx. non-labile. CIWA DCed as pt was not scoring. plan to DC tomorrow or , once aftercare in place. Reason for continued inpatient stay Substantial Risk for: inability to function and rapid decompensation Time Spent With Patient Time: Total time managing care of this patient today ____ minutes.
[2023-06-08 20:00] VITALS: BP 124/67; PULSE 68; RESP 16; TEMP 36.2; O2SAT 97
[2023-06-08] MEDS: clonazePAM 1 MG TABLET 2 MG PO (20:35)
[2023-06-08] MEDS: Atorvastatin Calcium 80 MG TABLET PO (20:35)
[2023-06-08] MEDS: Tamsulosin HCL 0.4 MG CAPSULE PO (20:35)
[2023-06-08] MEDS: rOPINIRole HCL 0.5 MG TABLET PO (20:35)
[2023-06-08] MEDS: Montelukast Sodium 10 MG TABLET PO (20:35)
[2023-06-09] MEDS: Omeprazole 20 MG CAPSULE.DR PO ×2 (06:12→17:16)
[2023-06-09 07:41] LABS: Glucose, Whole Blood 101 mg/dL (60-115)
[2023-06-09 08:05] VITALS: BP 118/76; PULSE 84; RESP 16; TEMP 36.9
[2023-06-09] MEDS: Loratadine 10 MG TABLET PO (08:37)
[2023-06-09] MEDS: DULoxetine HCl 60 MG CAPSULE.DR PO (08:37)
[2023-06-09] MEDS: lisinopriL 10 MG TABLET PO (08:38)
[2023-06-09] MEDS: glipiZIDE 5 MG TABLET 2.5 MG PO (08:38)
[2023-06-09] MEDS: Cholecalciferol (Vitamin D3) 25 MCG TABLET 50 MCG PO (08:39)
[2023-06-09] MEDS: Ascorbic Acid 500 MG TABLET 1000 MG PO (08:39)
[2023-06-09] MEDS: Aspirin Enteric Coated 81 MG TABLET.DR PO (08:40)
[2023-06-09] MEDS: Fluticasone/Vilanterol 100/25 BLST.W.DEV 1 PUFF INHALE (08:41)
[2023-06-09] MEDS: Dorzolamide/Timolo 2.23%/0.68% 10 ML DRBTL 1 DROP EYE-BOTH ×2 (08:41→20:30)
[2023-06-09 12:38] LABS: COVID-19 Test Positive (Negative); IDNOW Serial# BCCEAD1C
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
[2023-06-09 20:15] VITALS: BP 118/78; PULSE 82; RESP 16; TEMP 37; O2SAT 97
[2023-06-09] MEDS: Montelukast Sodium 10 MG TABLET PO (20:29)
[2023-06-09] MEDS: Atorvastatin Calcium 80 MG TABLET PO (20:29)
[2023-06-09] MEDS: clonazePAM 1 MG TABLET 2 MG PO (20:29)
[2023-06-09] MEDS: Acetaminophen 325 MG TABLET 650 MG PO (20:29)
[2023-06-09] MEDS: Tamsulosin HCL 0.4 MG CAPSULE PO (20:29)
[2023-06-09] MEDS: rOPINIRole HCL 0.5 MG TABLET PO (20:29)
[2023-06-09 23:55] VITALS: PULSE 84; O2SAT 97
[2023-06-10 01:24] LABS: Glucose, Whole Blood 111 mg/dL (60-115)
[2023-06-10] MEDS: Acetaminophen 325 MG TABLET 650 MG PO ×2 (03:03→10:28)
[2023-06-10] MEDS: Omeprazole 20 MG CAPSULE.DR PO (06:22)
[2023-06-10 08:20] VITALS: BP 110/70; PULSE 82; RESP 18; TEMP 36; O2SAT 98
[2023-06-10 08:27] LABS: Glucose, Whole Blood 115 mg/dL (60-115)
[2023-06-10] MEDS: Albuterol Sulfate 90 MCG 8 GM INHALER 2 PUFF INHALE (09:06)
[2023-06-10] MEDS: Fluticasone Propionate Nasal 16 GM SPRAY 2 SPRAY NOSTRIL-B (09:06)
[2023-06-10] MEDS: Fluticasone/Vilanterol 100/25 BLST.W.DEV 1 PUFF INHALE (09:06)
[2023-06-10] MEDS: Dorzolamide/Timolo 2.23%/0.68% 10 ML DRBTL 1 DROP EYE-BOTH (09:06)
[2023-06-10] MEDS: Loratadine 10 MG TABLET PO (09:07)
[2023-06-10] MEDS: DULoxetine HCl 60 MG CAPSULE.DR PO (09:07)
[2023-06-10] MEDS: glipiZIDE 5 MG TABLET 2.5 MG PO (09:07)
[2023-06-10] MEDS: Cholecalciferol (Vitamin D3) 25 MCG TABLET 50 MCG PO (09:07)
[2023-06-10] MEDS: lisinopriL 10 MG TABLET PO (09:07)
[2023-06-10] MEDS: Ascorbic Acid 500 MG TABLET 1000 MG PO (09:07)
[2023-06-10] MEDS: Aspirin Enteric Coated 81 MG TABLET.DR PO (09:07)
== END 2023-06-10 10:50 | disposition home or self-care (01) | DRG 881 ==
LOC: HO.ED 15:48 → HO.PADLT16 15:49
PROVIDERS: Admitting Provider Psychiatry & Neurology Psychiatry; Emergency Provider Emergency Medicine Emergency Medical Services; Visit Provider Psychiatry & Neurology Psychiatry
DX: F32.A Depression, unspecified (principal); U07.1 COVID-19; R45.851 Suicidal ideations; E78.5 Hyperlipidemia, unspecified; F41.9 Anxiety disorder, unspecified; F10.10 Alcohol abuse, uncomplicated; Y90.6 Blood alcohol level of 120-199 mg/100 ml; Z91.148 Patient's other noncompliance with medication regimen for other reason; G47.33 Obstructive sleep apnea (adult) (pediatric); Z79.82 Long term (current) use of aspirin; Z79.51 Long term (current) use of inhaled steroids; Z79.84 Long term (current) use of oral hypoglycemic drugs; Z79.899 Other long term (current) drug therapy
CPT/HCPCS: 36415; 80053; 80061; 80307; 81001; 82607; 82746; 82947; 83036; 84439; 84443; 85025; 87086; 87147; 87635; 93005; 94660; 99285; S9485

== ENCOUNTER → 2023-06-05 11:02 | Outpatient (BNV) | payer OTHER, SELFPAY | PROVIDERS: Emergency Provider Emergency Medicine Emergency Medical Services; Visit Provider Internal Medicine Cardiovascular Disease | DX: I45.89 Other specified conduction disorders (principal) | CPT/HCPCS: 93010 ==

== ENCOUNTER → 2023-06-05 15:31 | Outpatient (BNV) | payer OTHER, SELFPAY | PROVIDERS: Admitting Provider Psychiatry & Neurology Psychiatry; Emergency Provider Emergency Medicine Emergency Medical Services; Visit Provider Psychiatry & Neurology Psychiatry | DX: F33.2 Major depressive disorder, recurrent severe without psychotic features (principal); F10.90 Alcohol use, unspecified, uncomplicated; F41.9 Anxiety disorder, unspecified; G47.33 Obstructive sleep apnea (adult) (pediatric) | CPT/HCPCS: 90792; 99231; 99239 ==

== ENCOUNTER 2023-06-18 13:24 | Outpatient (AMB) | payer OTHER, SELFPAY ==
[2023-06-18 14:07] VITALS: BP 120/84; PULSE 88; BMI 31.9
--- NOTE | 2023-06-18 14:07 | MHC.OFFVIS ---
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 [employer]/ [place]/ abnormal ekg Intake Note: New patient abnormal ekg feeling good Glass Block Installer Required: Yes Glass Block Installer Name: Ximena wise Allergies olanzapine [From ZYPREXA] Allergy (Unknown, Verified 06/05/23 07:24) UNKNOWN mirtazapine [From REMERON] Adverse Reaction (Unknown, Verified 06/05/23 07:24) PAIN IN LEGS sertraline [From ZOLOFT] Adverse Reaction (Unknown, Verified 06/05/23 07:24) ANXIETY gabapentin Adverse Reaction (Verified 06/05/23 07:24) Unknown metformin Adverse Reaction (Verified 06/05/23 07:24) Unknown Medication List - Last Reconciled 06/18/23 by Gavin Loera MD albuterol sulfate 90 mcg/actuation (Ventolin HFA) 2 puffs inhalation Q4H PRN ascorbic acid (vitamin C) (Vitamin C) 1,000 mg PO DAILY aspirin 81 mg PO DAILY cholecalciferol (vitamin D3) (Vitamin D3) 50 mcg PO DAILY clonazepam 2 mg PO BEDTIME dorzolamide-timolol 22.3-6.8 mg/mL 1 drp ophthalmic (eye) BID duloxetine 60 mg PO DAILY fluticasone propion-salmeterol 250-50 mcg/dose (Wixela Inhub) 1 ea inhalation BID fluticasone propionate 50 mcg/actuation 2 sprays intranasal DAILY PRN glipizide 2.5 mg (1/2 x 5 mg) PO DAILY 30 days lisinopril 10 mg PO DAILY loratadine 10 mg PO DAILY montelukast 10 mg PO BEDTIME omeprazole 20 mg PO BID@0630,1630 ropinirole 0.5 mg PO BEDTIME rosuvastatin 40 mg PO BEDTIME tamsulosin (Flomax) 0.4 mg PO BEDTIME trazodone 150 mg PO BEDTIME PRN verapamil ER 100 mg PO BEDTIME vitamin A 2,400 mcg PO DAILY vitamin E 268 mg PO DAILY zinc acetate 50 mg PO DAILY HPI HPI Comments History of Present Illness Details Milind as per the chart was referred here for abnormal EKG. History was obtained with help of print producer. After discussing patient patient not sure why he was referred here but he says to evaluate his heart. He is not sure to the exact reason. He has longstanding history of hypertension, alcohol use and obstructive sleep apnea. He also has history of question suicidal ideation and depression was admitted to the Behavioral Unit at [facility]. He had EKG done during the hospitalization which has shown no significant abnormality. Patient says he has had shortness of breath for many years. Says shortness of breath can happen with exertion and without exertion. Denies any chest pain. He denies any clear orthopnea, PND, leg edema. Takes all his medications. Blood pressure today is well controlled. [facility] Medical History GERD (gastroesophageal reflux disease) Asthma Anxiety Hyperlipidemia Hypertension BRI (obstructive sleep apnea) Alcohol abuse Suicidal ideation Diverticulosis Surgical History History of laparoscopic cholecystectomy Social History Household Members: None Housing: Apartment Do you presently have visiting nurse or other home services: No Alcohol intake: current Alcohol intake frequency: holidays/special occasions only Alcohol type: beer Comment: sleeping Patient Tobacco Use Status: Never used Tobacco service: No Current occupational status: disabled Sexual orientation: Straight/Heterosexual Review of Systems Const Denies chills, Denies daytime sleepiness, Denies fatigue, Denies fever(s), Denies frequent falls, Denies poor appetite, Denies snoring, Denies stops breathing during sleep, Denies weakness, Denies weight gain and Denies weight loss Eyes Denies loss of vision ENT Denies dizziness and Denies hearing loss Card Denies chest pain, Denies claudication, Denies leg edema, Denies lightheadedness, Denies palpitations, Denies dyspnea, Denies dyspnea on exertion and Denies orthopnea Resp Denies cough, Denies excessive phlegm production, Denies dyspnea, Denies dyspnea on exertion, Denies snoring and Denies wheezing GI Denies abdominal pain, Denies hematochezia, Denies change in bowel habits, Denies nausea and Denies vomiting Denies dysuria and Denies urinary frequency Musc Denies arthralgias, Denies muscle weakness, Denies numbness and Denies other (frequent falls) Skin/Breast Denies nail changes and Denies rash Neuro Denies Abnormal speech present, Denies dizziness, Denies frequent falls, Denies loss of vision, Denies memory loss, Denies numbness and Denies weakness Psych Denies depression and Denies memory loss Endo Denies fatigue and Denies palpitations Navneet/Lymph Reports easy bruising and Reports other (anemia) Aller/Immun Denies wheezing Physical Exam Vital Signs: Last Vital Signs Pulse 88 06/18/23 14:07 BP 120/84 06/18/23 14:07 BMI result Body Mass Index 31.9 Const General: cooperative, comfortable, no acute distress, alert and awake Nutritional Appearance: obese Orientation/consciousness: patient oriented x3 Limitations: no limitations HEENT Head: Yes normocephalic and Yes atraumatic Neck Neck: Yes trachea midline, Yes supple and Yes no JVD Resp Effort & Inspection: normal respiratory effort Auscultation: clear to auscultation bilaterally Cardio Jugular venous distension: no JVD Palpation: normal PMI Rate: regular rate Rhythm: regular rhythm Heart sounds: S1 normal heart sound present, S2 normal heart sound present, no click, no gallops and no murmurs GI Auscultation: normal bowel sounds Skin General skin exam: no rashes or lesions noted Neuro General: patient oriented x3 and no focal motor deficits Speech: No Abnormal speech present Extrem General: Yes no clubbing, cyanosis or edema Assessment & Plan Assessment & Plan (1) Hypertension: Code(s): I10 - Essential (primary) hypertension Plan: Patient with no significant abnormality of EKG. He does have longstanding history of hypertension symptoms of shortness of breath and also has prior history of alcohol use disorder and obstructive sleep apnea. Recommended echocardiogram to assess for LV systolic and diastolic function to evaluate for pulmonary hypertension as well as hypertensive heart disease. If the test is within acceptable limits, no further cardiac workup is indicated and continue treatment for his blood pressure. Discussed about complete cessation of alcohol use. Continue CPAP therapy for obstructive sleep apnea. Continue participate in regular physical activity and weight loss program. All findings were discussed with help of print producer. Will follow up in the clinic if need be. Thank you for allowing me to partake in his care Orders: Orders CA echo transthoracic complete Today I10 - Essential (primary) hypertension Coding Level of Care Code New Pt Level 3 (75001) Diagnoses Hypertension I10
== END 2023-06-18 14:37 | disposition home or self-care (01) ==
PROVIDERS: Visit Provider Internal Medicine Cardiovascular Disease
DX: I10 Essential (primary) hypertension (principal)
CPT/HCPCS: 99203

== ENCOUNTER → 2023-06-18 13:24 | Outpatient (BNVA) | payer OTHER, SELFPAY | PROVIDERS: Visit Provider Internal Medicine Cardiovascular Disease | DX: I10 Essential (primary) hypertension (principal) | CPT/HCPCS: 99202 ==

== ENCOUNTER 2023-06-25 10:29 | Outpatient (REF) | payer OTHER, SELFPAY ==
[2023-06-25 11:42] LABS: MANUAL DIFF FLAG NO
[2023-06-25 11:47] LABS: Basophils Absolute Auto 0.1 X10*3/uL (0.0-0.2); Basophils Percent Auto 1.7 % (0-2); Eosinophils Absolute Auto 0.1 X10*3/uL (0.0-0.4); Eosinophils Percent Auto 2.2 % (0-4); Hematocrit 44.5 % (42.0-52.0); Hemoglobin 14.5 g/dl (14.0-18.0); Imm Gran Abs Auto 0.01 X10*3/uL (0.00-0.03); Imm Gran Pct Auto 0.2 % (0.0-0.4); Lymphocytes Absolute Auto 1.6 X10*3/uL (1.2-4.9); Lymphocytes Percent Auto 38.7 % (20-40); Mean Corpuscular HGB Conc 32.6 g/dl (31.0-36.0); Mean Corpuscular Hemoglobin 29.1 pg (27.0-33.0); Mean Corpuscular Volume 89.2 fL (80.0-98.0); Mean Platelet Volume 10.1 fL (9.4-12.4); Monocytes Absolute Auto 0.5 X10*3/uL (0.1-1.2); Monocytes Percent Auto 11.9 % (2-11); Neutrophils Absolute Auto 1.8 x10*3/uL (2.0-8.3); Neutrophils Percent Auto 45.3 % (45-73); Platelet Count 253 X10*3/uL (160-400); Red Blood Count 4.99 X10*6/uL (4.60-5.80)
[2023-06-25 12:26] LABS: Alanine Aminotransferase 39 U/L (0-40); Albumin Level 4.3 g/dL (3.5-5.0); Alkaline Phosphatase 60 U/L (39-117); Anion Gap 11 (12-20); Aspartate Amino Transferase 35 U/L (5-37); Bilirubin Direct 0.2 mg/dL (0.0-0.5); Bilirubin Total 0.4 mg/dL (0.0-1.0); Blood Urea Nitrogen 15 mg/dL (9-16); Calcium 9.5 mg/dL (8.4-10.2); Carbon Dioxide 27 mmol/L (22-29); Chloride 107 mmol/L (96-108); Cholesterol 122 mg/dL (<200); Estimated Glomerular Filt Rate > 60; Glucose Random 112 mg/dL (60-115); HDL Cholesterol 50 mg/dL (>40); LDL Cholesterol Calculated 57 mg/dL (<100); Sodium 141 mmol/L (135-145); Total Protein 7.7 g/dL (6.5-8.0); Triglycerides 79 mg/dL (<150)
[2023-06-25 12:44] LABS: HIV AB/AG Nonreactive (Nonreactive); HIV Num 1 0.06 S/CO (0.00-0.99); ~HepC Num1 0.16 S/CO (0.00-0.79); ~Hepatitis C Antibody Nonreactive (Nonreactive)
[2023-06-25 12:52] LABS: Creatinine Urine 114.44 mg/dL; Microalbumin Urine < 5.0 mg/L
== END 2023-06-25 10:30 | disposition home or self-care (01) ==
LOC: HO.HHCL 10:29
PROVIDERS: Visit Provider Internal Medicine
DX: E11.65 Type 2 diabetes mellitus with hyperglycemia (principal); I10 Essential (primary) hypertension
CPT/HCPCS: 36415; 80048; 80061; 80076; 82043; 82570; 85025; 86803; 86901; 87389

== ENCOUNTER 2023-07-14 10:11 | Outpatient (REF) | payer OTHER, SELFPAY | END 2023-07-14 10:12 | disposition home or self-care (01) | LOC: HO.LAB 10:11 | PROVIDERS: Visit Provider Internal Medicine | DX: E11.65 Type 2 diabetes mellitus with hyperglycemia (principal) | CPT/HCPCS: 86900; 86901 ==

== ENCOUNTER 2023-07-18 02:41 | Emergency (ER) | payer OTHER, SELFPAY ==
[2023-07-18 03:26] VITALS: RESP 16; BMI 37.8
--- NOTE | 2023-07-18 03:31 | PC.NURSE ---
pt refusing to exchange operator completely; kept pants on. security able to empty pockets. belongings in linen closet. pt refusing vitals. took off hospital gown. pt refusing to stay in stretcher; standing beside stretcher. Dr. Ambrose aware.
--- NOTE | 2023-07-18 03:34 | ED.ALCOHOL ---
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 He finally gave his name. No SI does not want detox. He states he is fine and is upset he had to come here. He has been walking around talking and yelling steady gait. MD complaint: alcohol dependence Last drink: Hours (ago) Chronic alcohol use: Yes Previous visits for alcohol intoxication: Yes Recent trauma: No Associated symptoms: denies other symptoms Treatments prior to arrival: none Related Data Home Medications Medication Instructions Recorded Confirmed albuterol sulfate 90 mcg/actuation 2 puff inhalation Q4H PRN 06/22/20 06/18/23 aerosol inhaler (Ventolin HFA) Shortness Of Breath omeprazole 20 mg capsule,delayed 20 mg PO BID@0630,1630 06/22/20 06/18/23 release tamsulosin 0.4 mg capsule (Flomax) 0.4 mg PO BEDTIME 06/22/20 06/18/23 clonazepam 2 mg tablet 2 mg PO BEDTIME 03/26/23 06/18/23 dorzolamide 22.3 mg-timolol 6.8 1 drp ophthalmic (eye) BID 03/26/23 06/18/23 mg/mL eye drops duloxetine 60 mg capsule,delayed 60 mg PO DAILY 03/26/23 06/18/23 release lisinopril 10 mg tablet 10 mg PO DAILY 03/26/23 06/18/23 loratadine 10 mg tablet 10 mg PO DAILY 03/26/23 06/18/23 trazodone 150 mg tablet 150 mg PO BEDTIME PRN insomnia 03/26/23 06/18/23 ascorbic acid (vitamin C) 1,000 mg 1,000 mg PO DAILY 06/05/23 06/18/23 tablet (Vitamin C) aspirin 81 mg tablet,delayed 81 mg PO DAILY 06/05/23 06/18/23 release cholecalciferol (vitamin D3) 50 50 mcg PO DAILY 06/05/23 06/18/23 mcg (2,000 unit) capsule (Vitamin D3) fluticasone 250 mcg-salmeterol 50 1 ea inhalation BID 06/05/23 06/18/23 mcg/dose blistr powdr for inhalation (Iman Inhandra) fluticasone propionate 50 2 spray intranasal DAILY PRN 06/05/23 06/18/23 mcg/actuation nasal Allergic Symptoms spray,suspension montelukast 10 mg tablet 10 mg PO BEDTIME 06/05/23 06/18/23 ropinirole 0.5 mg tablet 0.5 mg PO BEDTIME 06/05/23 06/18/23 rosuvastatin 40 mg tablet 40 mg PO BEDTIME 06/05/23 06/18/23 verapamil 100 mg capsule 24hr 100 mg PO BEDTIME 06/05/23 06/18/[address],ext.release vitamin A 2,400 mcg capsule 2,400 mcg PO DAILY 06/05/23 06/18/23 vitamin E 268 mg (400 unit) capsule 268 mg PO DAILY 06/05/23 06/18/23 zinc acetate 50 mg (zinc) capsule 50 mg PO DAILY 06/05/23 06/18/23 Previous Rx's Medication Instructions Recorded glipizide 5 mg tablet 2.5 mg (1/2 x 5 mg) PO DAILY 30 06/09/23 days #15 tabs Allergies Allergy/AdvReac Type Severity Reaction Status Date / Time olanzapine [From ZYPREXA] Allergy Unknown UNKNOWN Verified 06/05/23 07:24 mirtazapine [From REMERON] AdvReac Unknown PAIN IN Verified 06/05/23 07:24 LEGS sertraline [From ZOLOFT] AdvReac Unknown ANXIETY Verified 06/05/23 07:24 gabapentin AdvReac Unknown Verified 06/05/23 07:24 metformin AdvReac Unknown Verified 06/05/23 07:24 Review of Systems Review of Systems: ROS unable to be obtained due to alcohol abuse FOR[facility]LY [facility], [facility] Past Medical History Attestation statement: The following information was validated with the patient. Source: old records reviewed Medical History GERD (gastroesophageal reflux disease) Asthma Anxiety Hyperlipidemia Hypertension BRI (obstructive sleep apnea) Alcohol abuse Suicidal ideation Diverticulosis Surgical History History of laparoscopic cholecystectomy Social History Social History Household Members: None Housing: Apartment Do you presently have visiting nurse or other home services: No Alcohol intake: current Alcohol intake frequency: holidays/special occasions only Alcohol type: beer Comment: sleeping Patient Tobacco Use Status: Never used Tobacco Advance Directives: No Advance Directives Information Provided: No service: No Current occupational status: disabled Sexual orientation: Straight/Heterosexual Physical Exam ED Vital Signs: Vital Signs - 24 hr 07/18/23 03:26 Respiratory Rate 16 BMI result Body Mass Index 37.8 Appearance: Alert. Oriented X3. No acute distress. steady gait does not appear intoxicated other than blood shot eyes, he is rude but having full conversations and walking around without issue Eyes: Pupils equal, round and reactive to light. injected sclera ENT: Pharynx normal. Atraumatic Neck: Normal inspection. Neck supple. CVS: Normal heart rate and rhythm. Pulses normal. Respiratory: No respiratory distress. Breath sounds normal. Abdomen: Soft and nontender. Skin: Skin warm and dry. Normal skin color. Normal skin turgor. Extremities: No lower extremity edema. No calf ttp Neuro: Oriented X 3. No motor deficit. No sensory deficit. Medical Decision Making Medical Decision Making MDM Narrative: 58 yo male with PMH of GERD, ETOh abuse here after given option for PC or ED he chose ED he is alert and oriented albeit rude and obnoxious but he has a steady gait and is not stumbling. He has no SI. He is refusing detox and will not stay in ED. No signs of head trauma at this time can be DC home Differential Diagnosis Differential Diagnoses: The differential diagnosis associated with the presentation includes ETOh abuse Admission/Observation Consideration of admission/observation: Escalation of care including admission/observation considered refuses Independent Historian Clinical information obtained from an independent historian. History obtained from or confirmed by: EMS External Record Review External record reviewed: Inpatient record Discharge Plan Discharge Clinical Impression: Alcohol use disorder Patient Disposition: Home, Self-Care Instructions: Abuse of Alcohol (ED) Additional Instructions: stop drinking. you are putting yourself at risk when you drink. follow up with your doctor luisanar flores. Te est?s poniendo en riesgo cuando bebes. vikas un seguimiento con craig m?dico Prescriptions: No Action tamsulosin [Flomax] 0.4 mg Capsule 0.4 mg PO BEDTIME omeprazole 20 mg Capsule,Delayed Release(Dr/Ec) 20 mg PO BID@0630,1630 albuterol sulfate [Ventolin HFA] 90 mcg/actuation Hfa Aerosol Inhaler 2 puff INHALATION Q4H PRN (Reason: Shortness Of Breath) trazodone 150 mg tablet 150 mg PO BEDTIME PRN (Reason: insomnia) clonazepam 2 mg tablet 2 mg PO BEDTIME duloxetine 60 mg capsule,delayed release(DR/EC) 60 mg PO DAILY lisinopril 10 mg tablet 10 mg PO DAILY dorzolamide-timolol 22.3-6.8 mg/mL drops 1 drp ophthalmic (eye) BID loratadine 10 mg tablet 10 mg PO DAILY fluticasone propion-salmeterol [Wixela Inhub] 250-50 mcg/dose blister with device 1 ea inhalation BID ascorbic acid (vitamin C) [Vitamin C] 1,000 mg Tablet 1,000 mg PO DAILY vitamin A 2,400 mcg Capsule 2,400 mcg PO DAILY zinc acetate 50 mg (zinc) Capsule 50 mg PO DAILY aspirin 81 mg tablet,delayed release (DR/EC) 81 mg PO DAILY ropinirole 0.5 mg tablet 0.5 mg PO BEDTIME verapamil 100 mg capsule, [address] 100 mg PO BEDTIME montelukast 10 mg tablet 10 mg PO BEDTIME fluticasone propionate 50 mcg/actuation spray,suspension 2 spray intranasal DAILY PRN (Reason: Allergic Symptoms) vitamin E 268 mg (400 unit) Capsule 268 mg PO DAILY rosuvastatin 40 mg tablet 40 mg PO BEDTIME cholecalciferol (vitamin D3) [Vitamin D3] 50 mcg (2,000 unit) capsule 50 mcg PO DAILY glipizide 5 mg Tablet 2.5 mg PO DAILY 30 Days Qty: 15 0RF
--- NOTE | 2023-07-18 04:48 | PC.NURSE ---
pt refusing to sign documents upon discharge. Notified HUANG Adams
== END 2023-07-18 04:59 | disposition home or self-care (01) ==
PROVIDERS: Emergency Provider Emergency Medicine
DX: F10.10 Alcohol abuse, uncomplicated (principal); Y90.9 Presence of alcohol in blood, level not specified; I10 Essential (primary) hypertension; E78.5 Hyperlipidemia, unspecified; Z79.82 Long term (current) use of aspirin; Z79.899 Other long term (current) drug therapy; Z79.02 Long term (current) use of antithrombotics/antiplatelets
CPT/HCPCS: 99282

== ENCOUNTER 2023-12-01 07:32 | Emergency (ER) | payer OTHER, SELFPAY ==
[2023-12-01 07:42] VITALS: BP 151/85; PULSE 85; RESP 16; TEMP 36.6; O2SAT 99
[2023-12-01 07:43] VITALS: BP 151/85; BP 200/110; PULSE 88; RESP 18; TEMP 36.6; O2SAT 97; O2SAT 99; BMI 31.7
--- NOTE | 2023-12-01 07:50 | ED.GENADULT ---
HPI - General Adult General Chief complaint: General Medical Stated complaint: SOB OVER NIGHT CPAP NOT ON IN AM PER EMS Time Seen by Provider: 12/01/23 07:34 Source: patient and EMS Mode of arrival: EMS Limitations: language barrier History of Present Illness HPI narrative: Patient is living in a hotel until he obtains housing. He lost his CPAP. last night he awoke anxious feeling short of breath. The ambulance found him to be anxious with stable vitals. Patient denies being suicidal or homicidal Onset (ago): hour(s) Related Data Home Medications ?Medication ?Instructions ?Recorded ?Confirmed albuterol sulfate 90 mcg/actuation 2 puff inhalation Q4H PRN 06/22/20 06/18/23 aerosol inhaler (Ventolin HFA) Shortness Of Breath omeprazole 20 mg capsule,delayed 20 mg PO BID@0630,1630 06/22/20 06/18/23 release tamsulosin 0.4 mg capsule (Flomax) 0.4 mg PO BEDTIME 06/22/20 06/18/23 clonazepam 2 mg tablet 2 mg PO BEDTIME 03/26/23 06/18/23 dorzolamide 22.3 mg-timolol 6.8 1 drp ophthalmic (eye) BID 03/26/23 06/18/23 mg/mL eye drops duloxetine 60 mg capsule,delayed 60 mg PO DAILY 03/26/23 06/18/23 release lisinopril 10 mg tablet 10 mg PO DAILY 03/26/23 06/18/23 loratadine 10 mg tablet 10 mg PO DAILY 03/26/23 06/18/23 trazodone 150 mg tablet 150 mg PO BEDTIME PRN insomnia 03/26/23 06/18/23 ascorbic acid (vitamin C) 1,000 mg 1,000 mg PO DAILY 06/05/23 06/18/23 tablet (Vitamin C) aspirin 81 mg tablet,delayed 81 mg PO DAILY 06/05/23 06/18/23 release cholecalciferol (vitamin D3) 50 50 mcg PO DAILY 06/05/23 06/18/23 mcg (2,000 unit) capsule (Vitamin D3) fluticasone 250 mcg-salmeterol 50 1 ea inhalation BID 06/05/23 06/18/23 mcg/dose blistr powdr for inhalation (Wixela Inhub) fluticasone propionate 50 2 spray intranasal DAILY PRN 06/05/23 06/18/23 mcg/actuation nasal Allergic Symptoms spray,suspension montelukast 10 mg tablet 10 mg PO BEDTIME 06/05/23 06/18/23 ropinirole 0.5 mg tablet 0.5 mg PO BEDTIME 06/05/23 06/18/23 rosuvastatin 40 mg tablet 40 mg PO BEDTIME 06/05/23 06/18/23 verapamil 100 mg capsule 24hr 100 mg PO BEDTIME 06/05/23 06/18/[address],ext.release vitamin A 2,400 mcg capsule 2,400 mcg PO DAILY 06/05/23 06/18/23 vitamin E 268 mg (400 unit) capsule 268 mg PO DAILY 06/05/23 06/18/23 zinc acetate 50 mg (zinc) capsule 50 mg PO DAILY 06/05/23 06/18/23 Previous Rx's ?Medication ?Instructions ?Recorded glipizide 5 mg tablet 2.5 mg (1/2 x 5 mg) PO DAILY 30 06/09/23 days #15 tabs Allergies Allergy/AdvReac Type Severity Reaction Status Date / Time olanzapine [From ZYPREXA] Allergy Unknown UNKNOWN Verified 12/01/23 07:49 mirtazapine [From REMERON] AdvReac Unknown PAIN IN Verified 12/01/23 07:49 LEGS sertraline [From ZOLOFT] AdvReac Unknown ANXIETY Verified 12/01/23 07:49 gabapentin AdvReac Unknown Verified 12/01/23 07:49 metformin AdvReac Unknown Verified 12/01/23 07:49 Review of Systems Review of Systems: Yes all other systems are reviewed and are negative Neurologic: Denies Sensory deficit (Neuro) [facility] Past Medical History Medical History GERD (gastroesophageal reflux disease) Asthma Anxiety Hyperlipidemia Hypertension BRI (obstructive sleep apnea) Alcohol abuse Suicidal ideation Diverticulosis Surgical History History of laparoscopic cholecystectomy Social History Social History Household Members: None Housing: Apartment Do you presently have visiting nurse or other home services: No Alcohol intake: current Alcohol intake frequency: holidays/special occasions only Alcohol type: beer Comment: sleeping Patient Tobacco Use Status: Never used Tobacco Advance Directives: No Advance Directives Information Provided: No Do you have a plan to hurt others: No Plan service: No Current occupational status: disabled Sexual orientation: Straight/Heterosexual Physical Exam ED Vital Signs: Vital Signs - 24 hr 12/01/23 07:42 12/01/23 07:43 12/01/23 10:46 Temperature 97.9 F 97.9 F Pulse Rate 85 88 73 Respiratory Rate 16 18 20 Blood Pressure 151/85 H 151/85 H 116/66 Pulse Oximetry 99 99 Oxygen Delivery Method Room Air Room Air Room Air 12/01/23 12:32 Temperature Pulse Rate 74 Respiratory Rate 20 Blood Pressure 128/75 Pulse Oximetry 97 Oxygen Delivery Method Room Air BMI result Body Mass Index 31.7 Const Other: anxious obese male in no acute distress Nutritional Appearance: obese Orientation/consciousness: oriented to person and patient oriented x3 Limitations: no limitations HENMT Head: Yes normal to inspection Ears: external ears normal General nose exam: Normal external nose present Mouth: Normal oral and palatal mucosa present and oropharynx normal Throat: Yes posterior oropharynx normal Eyes General: appearance normal, both eyes and all related structures Neck Neck: Yes normal visual inspection Chest Chest palpation & inspection: normal inspection of the chest Resp Auscultation: clear to auscultation bilaterally Cardio Jugular venous distension: no JVD Rate: regular rate Rhythm: regular rhythm Heart sounds: S1 normal heart sound present and S2 normal heart sound present GI Inspection: Yes normal to inspection Palpation (GI): Soft to palpation, nontender and No hepatosplenomegaly present Auscultation: normal bowel sounds General: Yes no CVA tenderness Back/Spine/Pelvis Back: no CVA tenderness Skin General skin exam: no rashes or lesions noted Neuro General: oriented to person and patient oriented x3 Cranial nerves: Yes CN's II-XII intact bilaterally Motor exam (neuro): 5/5 motor strength present throughout Sensory Exam: No Sensory deficit (Neuro) Extrem General: Yes normal to inspection Psych Appearance: grossly normal Course Reevaluation(s) Reevaluation #1: Held patient in order to try and obtain him a CPAP. Time: 13:05 Medications Administered Discontinued Medications Generic Name Dose Route Start Last Admin Trade Name Freq PRN Reason Stop Dose Admin Lorazepam 2 mg 06/18/24 07:50 12/01/23 08:13 Lorazepam 1 Mg Tablet PO 12/01/23 07:51 2 mg ONCE ONE Administration Medical Decision Making Differential Diagnosis Differential Diagnoses: The differential diagnosis associated with the presentation includes (anxiety, panic attack, sleep apnea) Independent Historian Clinical information obtained from an independent historian. History obtained from or confirmed by: EMS Tests considered The following testing was considered but not selected: Chest xray and EKG considered but patient symptom free and tearful Chronic Conditions Patient?s care impacted by: Other (anxiety and sleep apnea) Social Determinants Patient?s care significantly limited by Social Determinants of Health including: Inadequate housing and Low income Discharge Plan Discharge Clinical Impression: Anxiety Patient Disposition: Home, Self-Care Instructions: Anxiety (ED) Prescriptions: No Action tamsulosin [Flomax] 0.4 mg Capsule 0.4 mg PO BEDTIME omeprazole 20 mg Capsule,Delayed Release(Dr/Ec) 20 mg PO BID@0630,1630 albuterol sulfate [Ventolin HFA] 90 mcg/actuation Hfa Aerosol Inhaler 2 puff INHALATION Q4H PRN (Reason: Shortness Of Breath) trazodone 150 mg tablet 150 mg PO BEDTIME PRN (Reason: insomnia) clonazepam 2 mg tablet 2 mg PO BEDTIME duloxetine 60 mg capsule,delayed release(DR/EC) 60 mg PO DAILY lisinopril 10 mg tablet 10 mg PO DAILY dorzolamide-timolol 22.3-6.8 mg/mL drops 1 drp ophthalmic (eye) BID loratadine 10 mg tablet 10 mg PO DAILY fluticasone propion-salmeterol [Wixela Inhub] 250-50 mcg/dose blister with device 1 ea inhalation BID ascorbic acid (vitamin C) [Vitamin C] 1,000 mg Tablet 1,000 mg PO DAILY vitamin A 2,400 mcg Capsule 2,400 mcg PO DAILY zinc acetate 50 mg (zinc) Capsule 50 mg PO DAILY aspirin 81 mg tablet,delayed release (DR/EC) 81 mg PO DAILY ropinirole 0.5 mg tablet 0.5 mg PO BEDTIME verapamil 100 mg capsule, [address] 100 mg PO BEDTIME montelukast 10 mg tablet 10 mg PO BEDTIME fluticasone propionate 50 mcg/actuation spray,suspension 2 spray intranasal DAILY PRN (Reason: Allergic Symptoms) vitamin E 268 mg (400 unit) Capsule 268 mg PO DAILY rosuvastatin 40 mg tablet 40 mg PO BEDTIME cholecalciferol (vitamin D3) [Vitamin D3] 50 mcg (2,000 unit) capsule 50 mcg PO DAILY glipizide 5 mg Tablet 2.5 mg PO DAILY 30 Days Qty: 15 0RF Referrals: Physician,Unknown J [Primary Care Provider] - 5 days Print Language: Armenian
[2023-12-01] MEDS: LORazepam 1 MG TABLET 2 MG PO (08:13)
--- NOTE | 2023-12-01 08:18 | PC.NURSE ---
coming from [facility] where patient has been living while awaiting his housing. has been increasingly anxious, does not have access to his cpap machine. also reporting feeling stressed over potential court date. patient denies si/hi, awaiting consult from case management to see if they can assist with his cpap machine. patient was medicated per the MAR, resting in room with call donahue within reach.
[2023-12-01 10:46] VITALS: BP 116/66; PULSE 73; RESP 20
--- NOTE | 2023-12-01 11:50 | PC.NURSE ---
Spoke to patient with dramatic critic Luc, patient recently had left his home, the person he was living with put all his belongings on the curb, when the patient returned his CPAP machine was not there. Patient recently moved into a new apartment, did not have electricity until 5am this morning, does not know the company that services his CPAP, case management here in the ED does not facilitate oxygen related devices, [facility] does not give out new CPAP machines, called [facility], Aria at the [facility] will send message to Guerda relaying the message that the CPAP was lost, Guerda should reach back out to patient to follow up with him, provided Aria phone number of ED to give status update. Patient has no other medical complaints.
[2023-12-01 12:32] VITALS: BP 128/75; PULSE 74; RESP 20; O2SAT 97
--- NOTE | 2023-12-01 13:05 | MHC.CM.ED ---
Received case management consult from Dr Garcia. Patient came to the ER due to shortness of breath. Patient doesn't have his cpap. Patient is active with [facility]. Aliza from [facility] made aware and asked to notify patient's care consultant to assist patient in the community. Dr Garcia aware.
[2023-12-01 13:28] VITALS: BP 114/80; PULSE 82; RESP 20; TEMP 36.4; O2SAT 100
== END 2023-12-01 13:29 | disposition home or self-care (01) ==
PROVIDERS: Emergency Provider Emergency Medicine
DX: F41.9 Anxiety disorder, unspecified (principal); F32.A Depression, unspecified; I10 Essential (primary) hypertension; E78.5 Hyperlipidemia, unspecified; Z79.899 Other long term (current) drug therapy; Z79.02 Long term (current) use of antithrombotics/antiplatelets
CPT/HCPCS: 99284

== ENCOUNTER 2024-04-18 08:34 | Emergency (ER) | payer OTHER, SELFPAY ==
--- NOTE | 2024-04-18 08:47 | ED_ITS ---
HPI - General Adult General Chief complaint: General Medical Stated complaint: N/GUY/INSOMNIA PER EMS Time Seen by Provider: 04/18/24 08:47 Source: patient, EMS, RN notes reviewed and diplomatic interpreter Mode of arrival: EMS Limitations: language barrier History of Present Illness ED Provider: Miguel HPI narrative: Patient is a 59-year-old [place] Islander speaking male with history of schizophrenia, diabetes, GERD, hyperlipidemia, hypertension, BRI, asthma, LEEANNE, dissociative disorder, MDD, panic disorder presenting to the ED from [facility] housing with complaint of insomnia and anxiety for the past 5 days. He feels that he was given medications not belonging to him, but states that the name on the box said Milind Whitman. Patient has his medications shipped to him from [facility] in [place], [place]. He states that he does not read or speak Belarusian, so did not realize the medications were not his. He is somewhat of a poor historian, unable to state when he received the incorrect medications, or how he knew they were not his. His chief complaint is the insomnia and then states that he feeling anxious due to lack of sleep. MD complaint: insomnia, anxiety Onset (ago): day(s) Related Data Home Medications ?Medication ?Instructions ?Recorded ?Confirmed albuterol sulfate 90 mcg/actuation 2 puff inhalation Q4H PRN 06/22/20 06/18/23 aerosol inhaler (Ventolin HFA) Shortness Of Breath omeprazole 20 mg capsule,delayed 20 mg PO BID@0630,1630 06/22/20 06/18/23 release tamsulosin 0.4 mg capsule (Flomax) 0.4 mg PO BEDTIME 06/22/20 06/18/23 clonazepam 2 mg tablet 2 mg PO BEDTIME 03/26/23 06/18/23 dorzolamide 22.3 mg-timolol 6.8 1 drp ophthalmic (eye) BID 03/26/23 06/18/23 mg/mL eye drops duloxetine 60 mg capsule,delayed 60 mg PO DAILY 03/26/23 06/18/23 release lisinopril 10 mg tablet 10 mg PO DAILY 03/26/23 06/18/23 loratadine 10 mg tablet 10 mg PO DAILY 03/26/23 06/18/23 trazodone 150 mg tablet 150 mg PO BEDTIME PRN insomnia 03/26/23 06/18/23 ascorbic acid (vitamin C) 1,000 mg 1,000 mg PO DAILY 06/05/23 06/18/23 tablet (Vitamin C) aspirin 81 mg tablet,delayed 81 mg PO DAILY 06/05/23 06/18/23 release cholecalciferol (vitamin D3) 50 50 mcg PO DAILY 06/05/23 06/18/23 mcg (2,000 unit) capsule (Vitamin D3) fluticasone 250 mcg-salmeterol 50 1 ea inhalation BID 06/05/23 06/18/23 mcg/dose blistr powdr for inhalation (Wixela Inhub) fluticasone propionate 50 2 spray intranasal DAILY PRN 06/05/23 06/18/23 mcg/actuation nasal Allergic Symptoms spray,suspension montelukast 10 mg tablet 10 mg PO BEDTIME 06/05/23 06/18/23 ropinirole 0.5 mg tablet 0.5 mg PO BEDTIME 06/05/23 06/18/23 rosuvastatin 40 mg tablet 40 mg PO BEDTIME 06/05/23 06/18/23 verapamil 100 mg capsule 24hr 100 mg PO BEDTIME 06/05/23 06/18/[address],ext.release vitamin A 2,400 mcg capsule 2,400 mcg PO DAILY 06/05/23 06/18/23 vitamin E 268 mg (400 unit) capsule 268 mg PO DAILY 06/05/23 06/18/23 zinc acetate 50 mg (zinc) capsule 50 mg PO DAILY 06/05/23 06/18/23 Previous Rx's ?Medication ?Instructions ?Recorded glipizide 5 mg tablet 2.5 mg (1/2 x 5 mg) PO DAILY 30 06/09/23 days #15 tabs Allergies Allergy/AdvReac Type Severity Reaction Status Date / Time olanzapine [From ZYPREXA] Allergy Unknown UNKNOWN Verified 04/18/24 09:01 mirtazapine [From REMERON] AdvReac Unknown PAIN IN Verified 04/18/24 09:01 LEGS sertraline [From ZOLOFT] AdvReac Unknown ANXIETY Verified 04/18/24 09:01 gabapentin AdvReac Unknown Verified 04/18/24 09:01 metformin AdvReac Unknown Verified 04/18/24 09:01 Review of Systems 2 Review of Systems: As per HPI. Yes all other systems are reviewed and are negative Constitutional: Constitutional: Reports as per [facility] Past Medical History Medical History GERD (gastroesophageal reflux disease) Asthma Anxiety Hyperlipidemia Hypertension BRI (obstructive sleep apnea) Alcohol abuse Suicidal ideation Diverticulosis Surgical History History of laparoscopic cholecystectomy Social History Social History Household Members: None Housing: Apartment Do you presently have visiting nurse or other home services: No Alcohol intake: current Alcohol intake frequency: holidays/special occasions only Alcohol type: beer Comment: sleeping Patient Tobacco Use Status: Never used Tobacco Smoked in Last 30 Days: No Use of substances other than those prescribed or required for medical reasons: No Advance Directives: No Advance Directives Information Provided: Yes Do you have a plan to hurt others: No Plan service: No Current occupational status: disabled Sexual orientation: Straight/Heterosexual Physical Exam ED Vital Signs: Vital Signs - 24 hr 04/18/24 08:49 Temperature 98.5 F Pulse Rate 92 Respiratory Rate 18 Blood Pressure 143/87 H Pulse Oximetry 98 Oxygen Delivery Method Room Air BMI result Body Mass Index 37.4 Vital signs have been reviewed and appear to be correct. Blood pressure normal. Heart rate normal. Respiratory rate normal. Temperature normal. Oxygen saturation normal. Const General: cooperative, healthy appearing and no acute distress Orientation/consciousness: oriented to person, oriented to place, oriented to time and patient oriented x3 Limitations: no limitations [facility] Head: Yes normocephalic and Yes atraumatic Ears: external ears normal General nose exam: Normal external nose present Face and sinus: Yes face symmetric Mouth: oropharynx normal and moist mucous membranes Throat: Yes uvula midline Eyes Pupils: Equal, round and reactive pupils present Neck Neck: Yes normal visual inspection and Yes supple Resp Effort & Inspection: normal respiratory effort and able to speak in complete sentences Auscultation: clear to auscultation bilaterally Cardio Rate: regular rate Rhythm: regular rhythm Heart sounds: S1 normal heart sound present and S2 normal heart sound present GI Palpation (GI): Soft to palpation and nontender Auscultation: normoactive bowel sounds General: Yes no CVA tenderness Back/Spine/Pelvis Back: no CVA tenderness Skin General skin exam: elasticity normal and turgor normal Neuro General: oriented to person, oriented to place, oriented to time, patient oriented x3, moves all extremities, no focal motor deficits and CN's II-XI intact bilaterally Cranial nerves: Yes Equal, round and reactive pupils present Cognition (Neuro): normal cognition Extrem General: Yes full ROM, Yes no pedal edema and Yes no calf tenderness Psych Mental Status: mental status grossly normal Affect: normal affect Thought process: Normal thought process present Medications Administered Discontinued Medications Generic Name Dose Route Start Last Admin Trade Name Terrell PRN Reason Stop Dose Admin Acetaminophen 975 mg 04/18/24 11:17 04/18/24 11:26 Acetaminophen 325 Mg Tablet PO 04/18/24 11:18 975 mg ONCE ONE Administration Ibuprofen 600 mg 04/18/24 11:17 04/18/24 11:26 Ibuprofen 600 Mg Tablet PO 04/18/24 11:18 600 mg ONCE ONE Administration Medical Decision Making Medical Decision Making MDM Narrative: Patient is a 59-year-old [place] Islander speaking male with history of schizophrenia, diabetes, GERD, hyperlipidemia, hypertension, BRI, asthma, LEEANNE, dissociative disorder, MDD, panic disorder presenting to the ED from [facility] with complaint of insomnia and anxiety for the past 5 days. On exam patient is awake, A+Ox3, VS WNL, afebrile, normal neurological exam without focal deficits, physical exam findings as above. Given reported symptoms and physical exam findings, initial differential includes possible ingestion of unprescribed medications, electrolyte abnormality, cardiac arrhythmia, alcohol or drug ingestion. Labs notable for mildly elevated transaminases, negative ASA, tylenol levels. Urinalysis is without evidence of infection. Ethanol and urine drug screen negative. Called [facility], the company that fills patient's prescriptions and ships them to his home, spoke with [employer] who verified that patient has been receiving the same medications for several months. She does note that he received duloxetine from a different leasing machine tender than his box filled on 03/24, and that the capsules would have been a different color. Otherwise, all medications sent to the patient have been the same. In-person science interpreter was utilized for all interactions, assessments, and discussions. Differential Diagnosis Differential Diagnoses: The differential diagnosis associated with the presentation includes As per MDM Admission/Observation Consideration of admission/observation: Escalation of care including admission/observation considered Patient would have been admitted to the hospital had their work up had any findings where hospital admission was appropriate and their clinical presentation warranted hospital admission. Lab Data [facility] Lab Attestation statement: I reviewed the patient's lab results. As per [facility] 04/18/24 09:11 04/18/24 09:11 Labs: Lab Results 04/18/24 04/18/24 04/18/24 Range/Units 09:11 09:23 11:54 WBC 5.3 (4.8-10.8) X10*3/uL RBC 4.86 (4.60-5.80) X10*6/uL Hgb 14.9 (14.0-18.0) g/dl Hct 42.6 (42.0-52.0) % MCV 87.7 (80.0-98.0) fL MCH 30.7 (27.0-33.0) pg MCHC 35.0 (31.0-36.0) g/dl RDW 11.9 (11.0-16.0) % Plt Count 229 (160-400) X10*3/uL MPV 9.3 L (9.4-12.4) fL Immature Gran % (Auto) 0.4 (0.0-0.4) % Neut % (Auto) 37.5 L (45-73) % Lymph % (Auto) 47.8 H (20-40) % [place] % (Auto) 12.4 H (2-11) % Eos % (Auto) 1.1 (0-4) % Baso % (Auto) 0.8 (0-2) % Lymph # (Auto) 2.5 (1.2-4.9) X10*3/uL [place] # (Auto) 0.7 (0.1-1.2) X10*3/uL Eos # (Auto) 0.1 (0.0-0.4) X10*3/uL Baso # (Auto) 0.0 (0.0-0.2) X10*3/uL Abs Immat Gran (auto) 0.02 (0.00-0.03) X10*3/uL Absolute Neuts (auto) 2.0 (2.0-8.3) x10*3/uL Absolute Nucleated RBC 0.000 (0.0-0.012) X10*3/uL Nucleated RBC % (auto) 0.0 (0.0-0.2) /100WBC Sodium 137 (135-145) mmol/L Potassium 4.2 (3.3-5.1) mmol/L Chloride 105 (96-108) mmol/L Carbon Dioxide 23 (22-29) mmol/L Anion Gap 13 (12-20) BUN 14 (9-16) mg/dL Creatinine 1.02 (0.5-1.4) mg/dL Estim Creat Clear Calc 83.6 Estimated GFR > 60 Random Glucose 150 H (60-115) mg/dL Calcium 10.0 (8.4-10.2) mg/dL Total Bilirubin 0.6 (0.0-1.0) mg/dL AST 44 H (5-37) U/L ALT 63 H (0-40) U/L Alkaline Phosphatase 50 (39-117) U/L Total Protein 7.9 (6.5-8.0) g/dL Albumin 4.6 (3.5-5.0) g/dL Urine Color Yellow Urine Appearance Clear Urine pH 6.0 (5.0-9.0) Ur Specific [place] 1.015 (1.005-1.025) Urine Protein Negative (Neg-Trace) mg/dL Urine Glucose (UA) Negative (Negative) mg/dL Urine Ketones Negative (Negative) mg/dL Urine Blood Negative (Negative) Urine Nitrite Negative (Negative) Ur Leukocyte Esterase Negative (Negative) Salicylates < 5.0 L (15-30) mg/dL Urine Opiates Screen Not Detected (Not Detect) Ur Buprenorphine Scrn Not Detected (Not Detect) ng/mL Ur Oxycodone Screen Not Detected (Not Detect) ng/mL Urine Methadone Screen Not Detected (Not Detect) ng/mL Urine Fentanyl Screen Not Detected (Not Detect) Acetaminophen 3 (<30) mcg/mL Ur Barbiturates Screen Not Detected (Not Detect) Ur Phencyclidine Scrn Not Detected (Not Detect) Ur Amphetamines Screen Not Detected (Not Detect) U Benzodiazepines Scrn Not Detected (Not Detect) Urine Cocaine Screen Not Detected (Not Detect) U Marijuana (THC) Screen Not Detected (Not Detect) Ethyl Alcohol < 10 mg/dL Influenza Type A (PCR) NEGATIVE (Negative) Influenza Type B (PCR) NEGATIVE (Negative) RSV RNA Qual (PCR) NEGATIVE (Negative) SARS-CoV-2 RNA (RT-PCR) NEGATIVE (Negative) Independent Historian Clinical information obtained from an independent historian. History obtained from or confirmed by: Other (jacque Canrey tech from [facility]) External Record Review External record reviewed: Inpatient record, Office record and Outpatient record Discharge Plan Discharge Clinical Impression: Insomnia, Anxiety Patient Disposition: Home, Self-Care Instructions: Insomnia (ED), Anxiety (ED) Additional Instructions: You were evaluated in the emergency department today for insomnia, and anxiety related to concern that you were taking the wrong medications. Your medications were verified with the pharmacy to have been correct. One of your medications was filled from a different leasing machine tender, and was a different color than usual. This is likely why you thought they were not the correct medications. Your labs did not show evidence of any conditions requiring emergent treatment. Continue to take your medications as prescribed. Return with any new or concerning symptoms. Prescriptions: No Action tamsulosin [Flomax] 0.4 mg Capsule 0.4 mg PO BEDTIME omeprazole 20 mg Capsule,Delayed Release(Dr/Ec) 20 mg PO BID@0630,1630 albuterol sulfate [Ventolin HFA] 90 mcg/actuation Hfa Aerosol Inhaler 2 puff INHALATION Q4H PRN (Reason: Shortness Of Breath) trazodone 150 mg tablet 150 mg PO BEDTIME PRN (Reason: insomnia) clonazepam 2 mg tablet 2 mg PO BEDTIME duloxetine 60 mg capsule,delayed release(DR/EC) 60 mg PO DAILY lisinopril 10 mg tablet 10 mg PO DAILY dorzolamide-timolol 22.3-6.8 mg/mL drops 1 drp ophthalmic (eye) BID loratadine 10 mg tablet 10 mg PO DAILY fluticasone propion-salmeterol [Wixela Inhub] 250-50 mcg/dose blister with device 1 ea inhalation BID ascorbic acid (vitamin C) [Vitamin C] 1,000 mg Tablet 1,000 mg PO DAILY vitamin A 2,400 mcg Capsule 2,400 mcg PO DAILY zinc acetate 50 mg (zinc) Capsule 50 mg PO DAILY aspirin 81 mg tablet,delayed release (DR/EC) 81 mg PO DAILY ropinirole 0.5 mg tablet 0.5 mg PO BEDTIME verapamil 100 mg capsule, [address] 100 mg PO BEDTIME montelukast 10 mg tablet 10 mg PO BEDTIME fluticasone propionate 50 mcg/actuation spray,suspension 2 spray intranasal DAILY PRN (Reason: Allergic Symptoms) vitamin E 268 mg (400 unit) Capsule 268 mg PO DAILY rosuvastatin 40 mg tablet 40 mg PO BEDTIME cholecalciferol (vitamin D3) [Vitamin D3] 50 mcg (2,000 unit) capsule 50 mcg PO DAILY glipizide 5 mg Tablet 2.5 mg PO DAILY 30 Days Qty: 15 0RF Print Language: [place] Islander
[2024-04-18 08:48] VITALS: BP 154/73; PULSE 80; O2SAT 100
[2024-04-18 08:49] VITALS: BP 143/87; PULSE 92; RESP 18; TEMP 36.9; O2SAT 98; BMI 37.4
--- NOTE | 2024-04-18 09:11 | PC.NURSE ---
patient arrives via EMS from home, states he has been unable to sleep for the last 5 days, states he found out he picked up the wrong prescriptions at the pharmacy and has been taking them, patient states he has a nurse that is supposed to come help him once a week but he has not set up an appointment for him to come see him yet. patient states he has a headache and his eyes hurt secondary to no being able to sleep. he is alert and oriented, states he thinks he is nauseous due to taking the incorrect medications, but he is unable to tell this RN what medications he has been taking, and due to not speaking nepali has been unable to call the pharmacy to make them aware. patient ambulatory with steady gait to bathroom. calm and cooperative with plan of care at this time
[2024-04-18 09:16] LABS: MANUAL DIFF FLAG NO
[2024-04-18 09:18] LABS: Basophils Percent Auto 0.8 % (0-2); Eosinophils Absolute Auto 0.1 X10*3/uL (0.0-0.4); Eosinophils Percent Auto 1.1 % (0-4); Hematocrit 42.6 % (42.0-52.0); Hemoglobin 14.9 g/dl (14.0-18.0); Imm Gran Abs Auto 0.02 X10*3/uL (0.00-0.03); Imm Gran Pct Auto 0.4 % (0.0-0.4); Lymphocytes Absolute Auto 2.5 X10*3/uL (1.2-4.9); Lymphocytes Percent Auto 47.8 % (20-40); Mean Corpuscular Hemoglobin 30.7 pg (27.0-33.0); Mean Corpuscular Volume 87.7 fL (80.0-98.0); Mean Platelet Volume 9.3 fL (9.4-12.4); Monocytes Absolute Auto 0.7 X10*3/uL (0.1-1.2); Monocytes Percent Auto 12.4 % (2-11); Neutrophils Percent Auto 37.5 % (45-73); Platelet Count 229 X10*3/uL (160-400); Red Blood Count 4.86 X10*6/uL (4.60-5.80); Red Cell Distribution Width 11.9 % (11.0-16.0); White Blood Count 5.3 X10*3/uL (4.8-10.8)
[2024-04-18 09:33] LABS: Appearance Urine Clear; Color Urine Yellow; Glucose Urine UA Negative (Negative); Leukocyte Esterase Urine Negative (Negative); Nitrite Urine Negative (Negative); Specific Gravity - Urine 1.015 (1.005-1.025); Urine Blood Negative (Negative); Urine Ketones Negative (Negative); Urine Protein Negative (Neg-Trace)
[2024-04-18 09:40] LABS: Amphetamine Screen Urine Not Detected (Not Detect); Barbiturates, Urine Not Detected (Not Detect); Benzodiazepines Screen Urine Not Detected (Not Detect); Cannabinoid Screen Urine Not Detected (Not Detect); Cocaine Screen Urine Not Detected (Not Detect); Fentanyl, urine Not Detected (Not Detect); Methadone Screen, Urine Not Detected (Not Detect); Opiate Screen Urine Not Detected (Not Detect); Oxycodone Screen Urine Not Detected (Not Detect); Phencyclidine Screen Urine Not Detected (Not Detect)
[2024-04-18 09:41] LABS: Buprenorphine Scr Not Detected (Not Detect)
[2024-04-18 09:42] LABS: Alanine Aminotransferase 63 U/L (0-40); Albumin Level 4.6 g/dL (3.5-5.0); Alkaline Phosphatase 50 U/L (39-117); Anion Gap 13 (12-20); Aspartate Amino Transferase 44 U/L (5-37); Bilirubin Total 0.6 mg/dL (0.0-1.0); Blood Urea Nitrogen 14 mg/dL (9-16); Carbon Dioxide 23 mmol/L (22-29); Chloride 105 mmol/L (96-108); Creatinine Clr Calc Pharmacy 83.6; Estimated Glomerular Filt Rate > 60; Ethanol < 10 mg/dL; Glucose Random 150 mg/dL (60-115); Potassium 4.2 mmol/L (3.3-5.1); Sodium 137 mmol/L (135-145); Total Protein 7.9 g/dL (6.5-8.0)
[2024-04-18 10:01] LABS: Influenza A PCR NEGATIVE (Negative); Influenza B PCR NEGATIVE (Negative); Resp Syncy Virus RNA Qual PCR NEGATIVE (Negative); SARS COV2 PCR INHOUSE NEGATIVE (Negative)
[2024-04-18] MEDS: Ibuprofen 600 MG TABLET PO (11:26)
[2024-04-18] MEDS: Acetaminophen 325 MG TABLET 975 MG PO (11:26)
--- NOTE | 2024-04-18 11:53 | ECG_ITS ---
Test Reason : POSS INGESTION OF WRONG MEDICATION Blood Pressure : / mmHG Vent. Rate : 066 BPM Atrial Rate : 066 BPM P-R Int : 168 ms QRS Dur : 096 ms QT Int : 392 ms P-R-T Axes : 042 -18 -14 degrees QTc Int : 410 ms Normal sinus rhythm Minimal voltage criteria for LVH, may be normal variant ( R in aVL ) Nonspecific T wave abnormality Abnormal ECG When compared to the previous EKG of LVH is noted Referred By: Phuong Rivera Electronically Signed By:ODIN CARBALLO MD
[2024-04-18 12:28] LABS: Acetaminophen LAB 3 mcg/mL (<30); Salicylate < 5.0 mg/dL (15-30)
[2024-04-18 13:01] VITALS: BP 140/77; PULSE 71; RESP 18; TEMP 36.7; O2SAT 97
[2024-04-18 13:03] VITALS: BP 140/77; PULSE 71; RESP 18; TEMP 36.7; O2SAT 97
== END 2024-04-18 13:03 | disposition home or self-care (01) ==
PROVIDERS: Registered Nurse Emergency; Emergency Provider Student in an Organized Health Care Education/Training Program
DX: G47.00 Insomnia, unspecified (principal); F41.9 Anxiety disorder, unspecified; E11.9 Type 2 diabetes mellitus without complications; I10 Essential (primary) hypertension; E78.5 Hyperlipidemia, unspecified; F20.9 Schizophrenia, unspecified; Z79.899 Other long term (current) drug therapy; Z03.818 Encounter for observation for suspected exposure to other biological agents ruled out
CPT/HCPCS: 0241U; 36415; 80053; 80143; 80179; 80307; 81003; 85025; 93005; 99284; 99285

== ENCOUNTER → 2024-04-18 11:53 | Outpatient (BNV) | payer OTHER, SELFPAY | PROVIDERS: Emergency Provider Student in an Organized Health Care Education/Training Program; Visit Provider Internal Medicine Cardiovascular Disease | DX: R94.31 Abnormal electrocardiogram [ECG] [EKG] (principal); R51.9 Headache, unspecified | CPT/HCPCS: 93010 ==

== ENCOUNTER 2024-09-27 14:09 | Outpatient (REF) | payer OTHER, SELFPAY ==
[2024-09-27 16:13] LABS: MANUAL DIFF FLAG NO
[2024-09-27 16:31] LABS: Basophils Absolute Auto 0.1 X10*3/uL (0.0-0.2); Basophils Percent Auto 1.1 % (0-2); Eosinophils Absolute Auto 0.1 X10*3/uL (0.0-0.4); Eosinophils Percent Auto 1.1 % (0-4); Hematocrit 44.9 % (42.0-52.0); Hemoglobin 15.1 g/dl (14.0-18.0); Imm Gran Abs Auto 0.02 X10*3/uL (0.00-0.03); Imm Gran Pct Auto 0.4 % (0.0-0.4); Lymphocytes Percent Auto 34.8 % (20-40); Mean Corpuscular HGB Conc 33.6 g/dl (31.0-36.0); Mean Corpuscular Hemoglobin 30.1 pg (27.0-33.0); Mean Corpuscular Volume 89.4 fL (80.0-98.0); Mean Platelet Volume 10.9 fL (9.4-12.4); Monocytes Absolute Auto 0.6 X10*3/uL (0.1-1.2); Monocytes Percent Auto 11.4 % (2-11); Neutrophils Absolute Auto 2.9 x10*3/uL (2.0-8.3); Neutrophils Percent Auto 51.2 % (45-73); Platelet Count 281 X10*3/uL (160-400); Red Blood Count 5.02 X10*6/uL (4.60-5.80); Red Cell Distribution Width 11.9 % (11.0-16.0); White Blood Count 5.6 X10*3/uL (4.8-10.8)
--- OUTSIDE RECORDS SUMMARY | 2024-09-27 17:27 | XMS_ITS | Encounter Summary ---
Author Organization [employer] Address 75 [facility] 7t [place] [address] Care Team Providers Care Mesh Man Name Role Phone Kasey Rodriguez MD Primary Care Provide r Reason for Visit * Reason Onset Date Comments Care Coordination 09/27/2024 Encounter Details Date Type Department Care Team ([facility] st Contact Info) Description 09/27/2024 Telephone [facility] MEDICINE [address] [place] [address] Jennifer Quintero RN [address] [place] [address] Care Coordination Social History Tobacco Use Types Packs/Day Years Used Date Smoking Tobacco: Former Cigarettes Passive Smoke Exposure: Past Smokeless Tobacco: Never Alcohol Use Standard Drinks/Week Comments Never 0 (1 standard drink = 0.6 oz pur e alcohol) Depression Answer Date Recorded Patient Health Questionnaire-9 Score 4 03/16/2023 Housing Stability Answer Date Recorded What is your housing situation today? I do not have housing (Staying with others, in a hotel, in a retirement, living outside on the street, on a beach, in a car, or in a park 02/25/[address] you li ve. Do you have problems with any of the following? None of the above 02/25/2024 Food Insecurity Answer Date Recorded Within the past 12 months, y ou worried that your food would run out before you got money to buy more: Never True 04/01/2023 Within the past 12 months,th e food you bought just didn't last and you didn't have enough money to get more: Never True Transportation Answer Date Recorded In the past 12 months, has l ack of transportation kept you from medical appts, meetings, work or from getting things needed for daily living? No 02/25/2024 Utilities Answer Date Recorded In the past 12 months, has t he electric, gas, oil or water company threatened to shut off services in your home? No 04/01/2023 Depression Answer Date Recorded Patient Health Questionnaire-2 Score 2 03/16/2023 Internet Access Answer Date Recorded Internet Access Q1 Yes 02/25/2024 Internet Access Q2 Not on file 02/25/2024 Sex and Gender Information Value Date Recorded Sex Assigned at Male 04/14/2022 10:14 AM EDT Legal Sex Male 10:14 AM EDT Gender Identity Male 04/14/2022 10:14 AM EDT Sexual Orientation Straight 04/14/2022 10 :14 AM EDT documented as of this encounter Miscellaneous Notes * Telephone Encounter - Jennifer Quintero RN - 09/27/2024 2:51 PM EDT TC placed to pt.'s VNA agency and transferred to supervisor electronics assembly to request change to pt.'s VNA RN as ptreported during today's HDF that he does not always feel comfortable takings meds from his current nurse because she does not speak puerto rican. The supervisor electronics assembly reported that they do have some availability for pt. To see a puerto rican speaking nurse and they will work on having at least half of his visits with a nurse that speaks puerto rican. documented in this encounter Plan of Treatment Upcoming Encounters Date Type Department Care Team (Late st Contact Info) Description 10/10/2024 9:30 AM EDT Medication Management [facility] MEDICINE [address] [place] [address] 12/29/2024 9:15 AM EDT Office Visit [facility] MEDICINE [address] [place] [address] Kasey Rodriguez MD 230 [place] [address] 01/17/2025 1:00 PM EDT Office Visit [facility] ADULT DENTAL [address] [place] [address] Nupur Peraza documented as of this encounter Visit Diagnoses Not on filedocumented in this encounter Additional Health Concerns Assessment Noted Time PHQ-9 Depression Total Score: 4 03/16/20 23 9:21 AM EDT documented as of this encounter Care Teams Mesh Man Relationship Specialty Start Date End Date Kasey Rodriguez MD 230 [facility] [place] [address] PCP - General Internal Medicine 02/23/23 Robert [facility] 06/12/23 documented as of this encounter
--- OUTSIDE RECORDS SUMMARY | 2024-09-27 17:27 | XMS_ITS | Encounter Summary ---
Author Organization [employer] Address 75 [facility] 7t [place] [address] Care Team Providers Care Rn Clinical Documentation Name Role Phone Kasey Rodriguez MD Primary Care Provide r Reason for Visit * Reason Comments Med Refill Encounter Details Date Type Department Care Team ([facility] Contact Info) Description 09/21/2024 Refill [facility] MEDICINE [address] [place], [place] [phone] Kasey Rodriguez MD 230 [place], [place] [phone] Social History Tobacco Use Types Packs/Day Years [...] with others, in a hotel, in a senior living, living outside on the street, on a [...] AM EDT documented as of this encounter Plan of Treatment Upcoming Encounters Date Type Department Care Team (Late st Contact Info) Description 10/10/2024 9:30 AM EDT Medication Management [facility] MEDICINE [address] [place] [address] 12/29/2024 9:15 AM EDT Office Visit [facility] MEDICINE [address] [place] [address] Kasey Rodriguez MD [address] [place] [address] 01/17/2025 1:00 PM EDT Office Visit [facility] ADULT DENTAL [address] [place] [address] Nupur Peraza documented as of this encounter Visit Diagnoses Not on filedocumented in this encounter Additional Health Concerns Assessment Noted Time PHQ-9 Depression Total Score: 4 03/16/20 23 9:21 AM EDT documented as of this encounter Care Teams Rn Clinical Documentation Relationship Specialty Start Date End Date Kasey Rodriguez MD [address] [place] [address] PCP - General Internal Medicine 02/23/23 Robert Parkinson 06/12/23 documented as of this encounter
--- OUTSIDE RECORDS SUMMARY | 2024-09-27 17:27 | XMS_ITS | Encounter Summary ---
Author Organization [employer] Address 75 [facility] 7t [place] [address] Care Team Providers Care Stapler Machine Name Role Phone Kasey Rodriguez MD Primary Care Provide r Reason for Visit * Reason Comments Med Refill Encounter Details Date Type Department Care Team ([facility] Contact Info) Description 05/11/2024 Refill [facility] MEDICINE 230 [place], [place] [phone] Kasey Rodriguez MD 230 [place], [place] [phone] Type 2 diabetes mellitus with hyperglycemia, without long-term current use of insulin ([facility]); Chronic obstructive pulmonary disease, unspecified COPD type ([facility]/HCC) Social History Tobacco Use Types Packs/Day Years [...] with others, in a hotel, in a nursing home, living outside on the street, on a [...] 9:30 AM EDT Medication Management [facility] MEDICINE [address] [place] [address] 12/29/2024 9:15 AM EDT Office Visit [facility] MEDICINE [address] [place] [address] Kasey Rodriguez MD [address] [place] [address] 01/17/2025 1:00 PM EDT Office Visit [facility] ADULT DENTAL [address] [place] [address] Nupur Peraza documented as of this encounter Visit Diagnoses Diagnosis Type 2 diabetes mellitus with hyperglycemia, without long-term current use of insulin (CMS/HCC) Chronic obstructive pulmonary disease, unspecified COPD type (CMS/HCC) documented in this encounter Additional Health Concerns Assessment Noted Time PHQ-9 Depression Total Score: 4 03/16/20 23 9:21 AM EDT documented as of this encounter Care Teams Stapler Machine Relationship Specialty Start Date End Date Kasey Rodriguez MD [address] [place] [address] PCP - General Internal Medicine 02/23/23 Robert Parkinson 06/12/23 documented as of this encounter
--- OUTSIDE RECORDS SUMMARY | 2024-09-27 17:27 | XMS_ITS | Encounter Summary ---
Author Organization [employer] Address 75 [facility] 7t [place] [address] Care Team Providers Care Friction Welding Machine Operator Name Role Phone Kasey Rodriguez MD Primary Care Provide r Reason for Visit * Reason Comments Med Refill Encounter Details Date Type Department Care Team ([facility] Contact Info) Description 04/13/2024 Refill [facility] MEDICINE 230 [place], [place] [phone] Kasey Rodriguez MD 230 [place], [place] [phone] Social History Tobacco Use Types Packs/Day Years [...] with others, in a hotel, in a jail, living outside on the street, on a [...] Description 10/10/2024 9:30 AM EDT Medication Management [facility] MEDICINE [address] [place] [address] 12/29/2024 9:15 AM EDT Office Visit [facility] MEDICINE [address] [place] [address] Kasey Rodriguez MD 230 [place] [address] 01/17/2025 1:00 PM EDT Office Visit [facility] ADULT DENTAL [address] [place] [address] Nupur Peraza documented as of this encounter Visit Diagnoses Not on filedocumented in this encounter Additional Health Concerns Assessment Noted Time PHQ-9 Depression Total Score: 4 03/16/20 23 9:21 AM EDT documented as of this encounter Care Teams Friction Welding Machine Operator Relationship Specialty Start Date End Date Kasey Rodriguez MD [address] [place] [address] PCP - General Internal Medicine 02/23/23 Robert Parkinson 06/12/23 documented as of this encounter
--- OUTSIDE RECORDS SUMMARY | 2024-09-27 17:27 | XMS_ITS | Encounter Summary ---
Author Organization [employer] Address 75 [facility] 7t [place] [address] Care Team Providers Care Dinner Cook Name Role Phone Kasey Rodriguez MD Primary Care Provide r Reason for Visit * Reason Comments Med Refill Encounter Details Date Type Department Care Team ([facility] Contact Info) Description 04/15/[address] [facility] MEDICINE [address] [place], [place] [phone] Kasey Rodriguez MD 230 [place], [place] [phone] Social History Tobacco Use Types Packs/Day Years [...] with others, in a hotel, in a fci, living outside on the street, on a [...] Description 10/10/2024 9:30 AM EDT Medication Management [facility] MEDICINE [address] [place] [address] 12/29/2024 9:15 AM EDT Office Visit [facility] MEDICINE [address] [place] [address] Kasey Rodriguez MD [address] [place] [address] 01/17/2025 1:00 PM EDT Office Visit [facility] ADULT DENTAL [address] [place] [address] Nupur Peraza documented as of this encounter Visit Diagnoses Not on filedocumented in this encounter Additional Health Concerns Assessment Noted Time PHQ-9 Depression Total Score: 4 03/16/20 23 9:21 AM EDT documented as of this encounter Care Teams Dinner Cook Relationship Specialty Start Date End Date Kasey Rodriguez MD [address] [place] [address] PCP - General Internal Medicine 02/23/23 Robert Parkinson 06/12/23 documented as of this encounter
--- OUTSIDE RECORDS SUMMARY | 2024-09-27 17:27 | XMS_ITS ---
Author Organization [facility] Address [address] [place] [address] Care Team Providers Care Golf Ball Cover Treater Name Role Phone Chandni Ospina Primary Care Provider Torin Arroyo [phone] REASON FOR VISIT no show 07/08 Encounters Encounter Location Date Provider Diagnosis [facility] [address] [place] [address] 07/08/2023 Torin Jones Plan Of Treatment No Information Progress Notes * Claribel MITCHELLOB:1965 ( 58 yo M)Acc No.[id number]:07/08/2023 Patient:?Milind Mitchell :1965???Age:58 Y???Sex:Male Address:[address] [place] [address], [address] * true * Date:? Generated for Autumni shay/Ian/eTransmitting on:?09/27/2024 05:27 PM EDT
--- OUTSIDE RECORDS SUMMARY | 2024-09-27 17:27 | XMS_ITS | Encounter Summary ---
Author Organization [email or web address] Address [address] [facility] [address] 7t [place] [address] Care Team Providers Care Chemical Sales Representative Name Role Phone Kasey Rodriguez MD Primary Care Provide r Reason for Visit * Reason Comments Med Refill Encounter Details Date Type Department Care Team ([facility] Contact Info) Description 01/27/2024 Refill [facility] MEDICINE 230 [place], [place] [phone] Kasey Rodriguez MD 230 [place], [place] [phone] Chronic obstructive pulmonary disease, unspecified COPD type (CMS/HCC) Social History Tobacco Use Types Packs/Day Years Used Date Smoking Tobacco: Former Cigarettes Passive Smoke Exposure: Never Smokeless Tobacco: Never Depression Answer Date Recorded Patient Health Questionnaire-9 Score 4 03/16/2023 Housing Stability Answer Date Recorded What is your housing situation today? I have maryann espinoza 03/23/[address] you li ve. Do you have problems with any of the following? Oven or stove not working;Pests such as bugs, ants, or mice 03/23/2023 Food Insecurity Answer Date Recorded Within the [...] from getting things needed for daily living? Yes, it has kept me from medical appointments or getting medications. 03/23/2023 Utilities Answer Date Recorded In the past 12 months, has t he electric, gas, oil or water company threatened to shut off services in your home? No 04/01/2023 Depression Answer Date Recorded Patient Health Questionnaire-2 Score 2 03/16/2023 Sex and Gender Information Value Date Recorded Sex Assigned at Male 04/14/2022 10:14 AM EDT Legal Sex Male 10:14 AM EDT Gender Identity Male 04/14/2022 10:14 AM EDT Sexual Orientation Straight 04/14/2022 10 :14 AM EDT documented as of this encounter Plan of Treatment Upcoming Encounters Date Type Department Care Team (Late st Contact Info) Description 10/10/2024 9:30 AM EDT Medication Management [facility] MEDICINE [address] [place] [address] 12/29/2024 9:15 AM EDT Office Visit [facility] MEDICINE [address] [place] [address] Kasye Rodriguez MD [address] [place] [address] 01/17/2025 1:00 PM EDT Office Visit [facility] ADULT DENTAL [address] [place] [address] Nupur Peraza documented as of this encounter Visit Diagnoses Diagnosis Chronic obstructive pulmonary disease, unspecified COPD type (CMS/HCC) documented in this encounter Additional Health Concerns Assessment Noted Time PHQ-9 Depression Total Score: 4 03/16/20 23 9:21 AM EDT documented as of this encounter Care Teams Chemical Sales Representative Relationship Specialty Start Date End Date Kasey Rodriguez MD [address] [place] [address] PCP - General Internal Medicine 02/23/23 Robert Parkinson 06/12/23 documented as of this encounter
--- OUTSIDE RECORDS SUMMARY | 2024-09-27 17:27 | XMS_ITS | Encounter Summary ---
Author Organization [employer] Address 75 [facility] 7t [place] [address] Care Team Providers Care Apparatus Repair Mechanic Name Role Phone Kasey Rodriguez MD Primary Care Provide r Encounter Details Date Type Department Care Team (Latest Contact Info) Description 09/11/2021 Abstract [facility] CONVERSIONS Dental, Provider, DDS Social History Tobacco Use Types Packs/Day Years Used Date Smoking Tobacco: Never Assessed Sex and Gender Information Value Date Recorded Sex Assigned at Male 04/14/2022 10:14 AM EDT Legal Sex Male 10:14 AM EDT Gender Identity Male 04/14/2022 10:14 AM EDT Sexual Orientation Straight 04/14/2022 10 :14 AM EDT documented as of this encounter Plan of Treatment Upcoming Encounters Date Type Department Care Team (Late st Contact Info) Description 10/10/2024 9:30 AM EDT Medication Management [facility] MEDICINE [address] [place] [address] 12/29/2024 9:15 AM EDT Office Visit [facility] MEDICINE [address] [place] [address] Kasey Rodriguez MD [address] [place] [address] 01/17/2025 1:00 PM EDT Office Visit [facility] ADULT DENTAL [address] [place] [address] Nupur Peraza documented as of this encounter Procedures Procedure Name Priority Date/Time Associated Diagnosis Comments 2,3,5,8,9,12,14,15 PARTIAL DENTURE - CAST METAL Routine 09/11/2021 12:00 AM EDT documented in this encounter Visit Diagnoses Not on filedocumented in this encounter Care Teams Apparatus Repair Mechanic Relationship Specialty Start Date End Date Kasey Rodriguez MD [address] [place] [address] PCP - General Internal Medicine 02/23/23 Robert Parkinson 06/12/23 documented as of this encounter
--- OUTSIDE RECORDS SUMMARY | 2024-09-27 17:27 | XMS_ITS | Encounter Summary ---
Author Organization [employer] Address 75 [facility] 7t [place] [address] Care Team Providers Care Vp Software Support Name Role Phone Kasey Rodriguez MD Primary Care Provide r Reason for Visit * Reason Comments Med Refill Encounter Details Date Type Department Care Team ([facility] Contact Info) Description 04/13/2024 Refill [facility] MEDICINE 230 [place], [place] [phone] Kasey Rodriguez MD 230 [place], [place] [phone] Social History Tobacco Use Types Packs/Day Years [...] with others, in a hotel, in a skilled nursing, living outside on the street, on a [...] Description 10/10/2024 9:30 AM EDT Medication Management [facility] MEDICINE [address] [place] [address] 12/29/2024 9:15 AM EDT Office Visit [facility] MEDICINE [address] [place] [address] Kasey Rodriguez MD [address] [place] [address] 01/17/2025 1:00 PM EDT Office Visit [facility] ADULT DENTAL [address] [place] [address] Nupur Peraza documented as of this encounter Visit Diagnoses Not on filedocumented in this encounter Additional Health Concerns Assessment Noted Time PHQ-9 Depression Total Score: 4 03/16/20 23 9:21 AM EDT documented as of this encounter Care Teams Vp Software Support Relationship Specialty Start Date End Date Kasey Rodriguez MD [address] [place] [address] PCP - General Internal Medicine 02/23/23 Robert Parkinson 06/12/23 documented as of this encounter
--- OUTSIDE RECORDS SUMMARY | 2024-09-27 17:27 | XMS_ITS | Encounter Summary ---
Author Organization [employer] Address 75 [facility] 7t [place] [address] Care Team Providers Care Ferryboat Helper Name Role Phone Kasey Rodriguez MD Primary Care Provide r Encounter Details Date Type Department Care Team (Latest Contact Info) Description 10/22/2020 Abstract [facility] CONVERSIONS Dental, Provider, DDS Social History Tobacco [...] AM EDT Medication Management [facility] MEDICINE [address] [place] [address] 12/29/2024 9:15 AM EDT Office Visit [facility] MEDICINE [address] [place] [address] Kasey Rodriguez MD 230 [place] [address] 01/17/2025 1:00 PM EDT Office Visit [facility] ADULT DENTAL [address] [place] [address] Nupur Peraza documented as of this encounter Visit Diagnoses Not on filedocumented in this encounter Care Teams Ferryboat Helper Relationship Specialty Start Date End Date Kasey Rodriguez MD [address] [place] [address] PCP - General Internal Medicine 02/23/23 Robert Parkinson 06/12/23 documented as of this encounter
--- OUTSIDE RECORDS SUMMARY | 2024-09-27 17:27 | XMS_ITS | Encounter Summary ---
Author Organization [employer] Address [address] [facility] [address] 7t [place] [address] Care Team Providers Care Shopping Inspector Name Role Phone Kasey Rodriguez MD Primary Care Provide r Reason for Visit * Reason Comments Med Refill Encounter Details Date Type Department Care Team ([facility] Contact Info) Description 01/26/2024 Refill [facility] MEDICINE 230 [place], [place] [phone] Kasey Rodriguez MD 230 [place], [place] [phone] Chronic obstructive pulmonary disease, unspecified COPD type [...] Description 10/10/2024 9:30 AM EDT Medication Management [facility] MEDICINE [address] [place] [address] 12/29/2024 9:15 AM EDT Office Visit [facility] MEDICINE [address] [place] [address] Kasey Rodriguez MD [address] [place] [address] 01/17/2025 1:00 PM EDT Office Visit [facility] ADULT DENTAL [address] [place] [address] Nupur Peraza documented as of this encounter Visit Diagnoses Diagnosis Chronic obstructive pulmonary disease, unspecified COPD type (CMS/HCC) documented in this encounter Additional Health Concerns Assessment Noted Time PHQ-9 Depression Total Score: 4 03/16/20 23 9:21 AM EDT documented as of this encounter Care Teams Shopping Inspector Relationship Specialty Start Date End Date Kasey Rodriguez MD [address] [place] [address] PCP - General Internal Medicine 02/23/23 Robert Parkinson 06/12/23 documented as of this encounter
--- OUTSIDE RECORDS SUMMARY | 2024-09-27 17:27 | XMS_ITS | Encounter Summary ---
Author Organization [employer] Address 75 [facility] 7t [place] [address] Care Team Providers Care Academic Hospitalist Name Role Phone Kasey Rodriguez MD Primary Care Provide r Reason for Visit * Reason Comments Med Refill Encounter Details Date Type Department Care Team ([facility] Contact Info) Description 05/10/[address] [facility] MEDICINE [address] [place], [place] [phone] Kasey Rodriguez MD 230 [place], [place] [phone] Type 2 diabetes mellitus with hyperglycemia, without long-term current use of insulin ([facility]); Chronic obstructive pulmonary disease, unspecified COPD type ([facility]/HCC) Social History Tobacco Use Types Packs/Day Years [...] Description 10/10/2024 9:30 AM EDT Medication Management [facility] MEDICINE [address] [place] [address] 12/29/2024 9:15 AM EDT Office Visit [facility] MEDICINE [address] [place] [address] Kasey Rodriguez MD [address] [place] [address] 01/17/2025 1:00 PM EDT Office Visit [facility] ADULT DENTAL [address] [place] [address] 54775 Nupur Peraza documented as of this encounter Visit Diagnoses Diagnosis Type 2 diabetes mellitus with hyperglycemia, without long-term current use of insulin (CMS/HCC) Chronic obstructive pulmonary disease, unspecified COPD type (CMS/HCC) documented in this encounter Additional Health Concerns Assessment Noted Time PHQ-9 Depression Total Score: 4 03/16/20 23 9:21 AM EDT documented as of this encounter Care Teams Academic Hospitalist Relationship Specialty Start Date End Date Kasey Rodriguez MD [address] [place] [address] PCP - General Internal Medicine 02/23/23 Robert Parkinson 06/12/23 documented as of this encounter
--- OUTSIDE RECORDS SUMMARY | 2024-09-27 17:27 | XMS_ITS | Encounter Summary ---
Author Organization [employer] Address [address] [facility] [address] [place] [address] Care Team Providers Care Rooter Operator Name Role Phone Kasey Rodriguez MD Primary Care Provide r Encounter Details Date Type Department Care Team (Latest Contact Info) Description 10/01/2018 Abstract [facility] CONVERSIONS Dental, Provider, DDS Social History Tobacco [...] Upcoming Encounters Date Type Department Care Team ( st Contact Info) Description 10/10/2024 9:30 AM EDT Medication Management [facility] MEDICINE [address] [place] [phone] 12/29/2024 9:15 AM EDT Office Visit [facility] [address] [place] [phone] Kasey Rodriguez MD [address] [place] [phone] 01/17/2025 1:00 PM EDT Office Visit [facility] ADULT DENTAL [address] [place] [phone] Nupur Peraza documented as of this encounter Visit Diagnoses Not on filedocumented in this encounter Care Teams Rooter Operator Relationship Specialty Start Date End Date Kasey Rodriguez MD [address] [place] [phone] PCP - General Internal Medicine 02/23/23 Robert Parkinson 06/12/23 documented as of this encounter
--- OUTSIDE RECORDS SUMMARY | 2024-09-27 17:27 | XMS_ITS | Encounter Summary ---
Author Organization [employer] Address [address] [facility] [address] [place] [address] Care Team Providers Care Meal Packer Name Role Phone Kasey Rodriguez MD Primary Care Provide r Encounter Details Date Type Department Care Team ([facility] st Contact Info) Description 09/14/2024 Telephone [facility]INE [address] [place] [phone] Desiree Chan, PharmD [address] [place] [address] Social History Tobacco Use Types Packs/Day Years [...] with others, in a hotel, in a correction, living outside on the street, on a [...] Description 10/10/2024 9:30 AM EDT Medication Management [facility] [address] [place] [phone] 12/29/2024 9:15 AM EDT Office Visit [facility] [address] [place] [phone] Kasey Rodriguez MD [address] [place] [address] 01/17/2025 1:00 PM EDT Office Visit [facility] ADULT DENTAL [address] [place] [phone] Nupur Peraza documented as of this encounter Visit Diagnoses Not on filedocumented in this encounter Additional Health Concerns Assessment Noted Time PHQ-9 Depression Total Score: 4 03/16/20 23 9:21 AM EDT documented as of this encounter Care Teams Meal Packer Relationship Specialty Start Date End Date Kasey Rodriguez MD [address] [place] [address] PCP - General Internal Medicine 02/23/23 Robert Parkinson 06/12/23 documented as of this encounter
--- OUTSIDE RECORDS SUMMARY | 2024-09-27 17:27 | XMS_ITS | Clinical Summary ---
Author Organization [employer] Address [address] [place] [address] Care Team Providers Care Rodeo Clown Name Role Phone Kasey Rodriguez MD Primary Care Provide r Allergies Active Allergy Reactions Criticality Noted Date Comments Gabapentin 03/05/2023 Other reaction(s): Unknown Metformin 05/28/2020 Other reaction(s): OTHER Stomach ache and acid reflex Other reaction(s): Unknown Mirtazapine 08/12/2013 Other reaction(s): OTHER Pain in legs Other reaction(s): Unknown Olanzapine 08/12/2013 Other reaction(s): OTHER akathisia Other reaction(s): Unknown Sertraline Other 08/12/2013 Increase anxiety Other reaction(s): Unknown Medications clonazePAM (KlonoPIN) 2 MG tablet Take 2 mg by mouth at bedtime. 3 Active DULoxetine (Cymbalta) [address] capsule Take 60 mg by mouth in the morning. 3 Active montelukast (Singulair) 10 MG tablet Take 10 mg by mouth at bedtime. 2 Active omeprazole (PriLOSEC) [address] capsule Take 20 mg by mouth. 2 Active rOPINIRole (Requip) 0.5 MG tablet TAKE 1 TABLET BY MOUTH DAILY BEFORE DINNER 2 Active tamsulosin (Flomax) 0.4 MG 24 hr capsule TAKE 1 CAPSULE BY MOUTH EVERY DAY 30 MINUTES AFTER THE SAME MEAL 2 Active traZODone (Desyrel) 150 MG tablet Take 150 mg by mouth if needed at bedtime. 3 Active Blood Pressure Monitor kit Check blood pressure twice a wee. Dx hypertension 1 kit 3 Active Magdalena Delica Lancets 33G miscIndications: Type 2 diabetes mellitus with hyperglycemia, without long-term current use of insulin ([facility]) Use 1 lancet to monitor blood glucose twice daily 100 each 3 3 Active ibuprofen 400 MG tablet TAKE 1 TABLET BY MOUTH EVERY 6 HOURS NEEDED FOR PAIN OR FEVER 20 tablet 3 Active Blood Glucose Monitoring Suppl (ONE TOUCH ULTRA 2) w/Device kitIndications:T ype 2 diabetes mellitus with hyperglycemia, without long-term current use of insulin ([facility]) Use to test blood sugar two times daily 1 kit 3 Active dorzolamide-stephanie lol (Cosopt) 2-0.5 % ophthalmic solution INSTILL 1 DROP IN EACH EYE TWICE DAILY 3 Active fluticasone (Flonase) 50 MCG/ACT nasal spray INSTILL 2 SPRAYS IN EACH NOSTRIL ONCE DAILY NEEDED 3 Active verapamil ER (Verelan PM) 100 MG 24 hr capsule Take 1 capsule by mouth at bedtime. 3 Active D3 Super Strength 50 MCG (2000 UT) capsule TAKE 1 CAPSULE BY MOUTH EVERY DAY 90 capsule 4 Active loratadine (Claritin) 10 MG tablet TAKE ONE TABLET BY MOUTH EVERY MORNING ^1R1 90 tablet 3 4 Active rosuvastatin (Crestor) 40 MG tabletIndication s:Essential hypertension TAKE ONE TABLET BY MOUTH AT BEDTIME ^1R4 30 tablet 11 4 Active lisinopril 10 MG tabletIndication s:Essential hypertension TAKE ONE TABLET BY MOUTH EVERY MORNING ^1R1 30 tablet 11 4 Active Aspirin Low Dose 81 MG EC tablet TAKE ONE TABLET BY MOUTH EVERY DAY ^1R1 90 tablet 1 4 Active Ventolin HFA 108 (90 Base) MCG/ACT inhalerIndicatio ns:Asthma, unspecified asthma severity, unspecified whether complicated, unspecified whether persistent INHALE 2 PUFFS BY MOUTH EVERY 6 HOURS NEEDED FOR WHEEZING (BULK) 18 g 6 4 Active Fluticasone-Salm eterol 250-50 MCG/ACT aerosol powderIndication s:Chronic obstructive pulmonary disease, unspecified COPD type ([facility]) INHALE ONE PUFF BY MOUTH TWICE A DAY RINSE MOUTH AFTER USING (BULK) 60 each 11 4 Active glipiZIDE XL (Glucotrol XL) 2.5 MG 24 hr tabletIndication s:Type 2 diabetes mellitus with hyperglycemia, without long-term current use of insulin (CMS/HCC) TAKE ONE TABLET BY MOUTH EVERY MORNING DO NOT BREAK, CRUSH, DISSOLVE OR CHEW ^1R1 30 tablet 11 4 Active Lancets (OneTouch Delica Plus Dejqku50M) miscIndications: Type 2 diabetes mellitus with hyperglycemia, without long-term current use of insulin (CMS/HCC) USE DIRECTED TWO TIMES A DAY (BULK) 100 each 11 4 Active OneTouch Ultra Test test stripIndications :Type 2 diabetes mellitus with hyperglycemia, without long-term current use of insulin (CMS/HCC) USE DIRECTED TWO TIMES A DAY (BULK) 100 strip 11 4 Active QUEtiapine (SEROquel) 50 MG tablet Take 1 tablet by mouth at bedtime. 5 Active Diclofenac Sodium 1 % gelIndications:C hronic pain of both knees Apply 1 Application topically every 12 (twelve) hours if needed (apply on affected area). 150 g 1 5 Active Active Problems Problem Noted Date Diagnosed Date Major depressive disorder with current active ep isode 09/27/2024 Assessment & Plan (09/27/2024 2:53 PM EDT): Continue same medications prescribed Hospital discharge Do not miss appointment with psychiatrist Dr. Buckley, patient reports he has an appointment on September 29, 2024 Continue to follow-up with therapist Chronic pain of both knees 09/27/2024 Assessment & Plan (09/27/2024 2:52 PM EDT): I will prescribe diclofenac gel to apply twice daily if needed On combination antipsychotic drug therapy 2024 Assessment & Plan (09/27/2024 2:56 PM EDT): EKG done today in light patient is on trazodone and quetiapine Normal sinus rhythm, heart rate is 61, QTc is 406/409, ST inversions in aVF and III, no ST changes Erectile dysfunction 09/27/2024 Assessment & Plan (09/27/2024 2:56 PM EDT): I refer patient to urology History of psychosis 06/23/2024 Neutropenia 06/23/2024 Partial edentulism 06/23/2024 Missing teeth, acquired 06/14/2024 Periodontal disease 05/06/2023 Dental plaque 05/06/2023 Type 2 diabetes mellitus wit h hyperglycemia, without long-term current use of insulin 03/16/2023 Assessment & Plan (09/27/2024 2:53 PM EDT): Diabetes is: controlled - Lab Results Component Value Date HGBA1C 6.6 (A) 09/27/2024 HGBA1C 6.3 (A) 03/04/2024 HGBA1C 6.0 06/25/2023 - Lab Results Component Value Date MICROALBUR <5.0 06/25/2023 CREATININE 0.99 06/25/2023 -Changes: None - Diabetic eye exam: Up-to-date - Diabetic foot exam: Pending - Continue lifestyle modifications - Continue current medications - Follow up: 3 months Assessment & Plan (03/04/2024 10:50 AM EDT): Diabetes is: controlled - Lab Results Component Value Date HGBA1C 6.3 (A) 03/04/2024 HGBA1C 6.0 06/25/2023 HGBA1C 6.7 (A) 03/16/2023 - Lab Results Component Value Date MICROALBUR <5.0 06/25/2023 CREATININE 0.99 06/25/2023 -Changes: none - Diabetic eye exam:up to date - Diabetic foot exam:pending - Continue lifestyle modifications - Continue current medications - Follow up: 3 months Assessment & Plan (06/25/2023 12:16 PM EST): - Lab Results Component Value Date HGBA1C 6.0 06/25/2023 HGBA1C 6.7 (A) 03/16/2023 - Lab Results Component Value Date CREATININE 1.03 03/26/2023 - Diabetic eye exam:referral done - Diabetic foot exam:pending - Continue lifestyle modifications - Continue current medications Assessment & Plan (03/16/2023 9:58 AM EDT): - Lab Results Component Value Date HGBA1C 6.7 (A) 03/16/2023 -No results found for: GLUF, MICROALBUR, LDLCALC, CREATININE - Diabetic eye exam:Patient reports he is up to date and follow by ophthalmology - Diabetic foot exam: pending - Continue lifestyle modifications - Continue current medications - BRI (obstructive sleep apnea) 03/16/2023 Assessment & Plan (09/27/2024 2:51 PM EDT): I ordered for him again his sleep studies Assessment & Plan (03/04/2024 10:50 AM EDT): Information about sleep study for him to book it was given Assessment & Plan (12/05/2023 9:14 AM EDT): Not using CPAP for few months as it was stolen, needs a new CPAP. He needs to restart CPAP use to decrease sxs, decrease morbidity and mortality Order sleep study and fu w PCP Assessment & Plan (03/16/2023 9:55 AM EDT): Patient needs supplies for his CPAP machine, prescription will be generated Colon cancer screening 03/16/2023 Chest pain 03/06/2023 Assessment & Plan (03/06/2023 6:14 AM EDT): 3 wk of chest pain at rest, but worsened w movement of L arm. Pain is reproduced w palpation. -EKG done today - noted TWI in lead III and aVF, NSR, HR 83, qTC 449 ms. Current Sx seem to be related to musculoskeletal etiology. -Warm compresses advised. -Tylenol PRN. -Ibuprofen PRN for moderate pain. -Pt does have abnormal EKG - cannot find previous EKG to compare, but current Sx are not suggestive of cardiac etiology. However, I referred today to cardiology to address abnormal EKG findings. -Pt taking daily ASA. -Alarm signs and Sx discussed w pt. 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 -Prescribed Triamcinolone cream. -Loratadine PRN. Primary hypertension 01/23/2023 Assessment & Plan (03/04/2024 10:49 AM EDT): Slightly elevated today , I advise low Na diet and weight reduction Monitor blood pressure C/w lisinopril 10mg, verapamil 100mg Assessment & Plan (03/06/2023 6:16 AM EDT): Elevated BP today. Manually checked 160/90. -Pt reports being compliant w meds. -Prescribed today BP machine to check daily BP and bring readings to apt w PCP, already scheduled for 10 days to see if he needs to adjust meds. Assessment & Plan (01/23/2023 2:59 PM EDT): I advise low Na diet and weight reduction I went up on his verapamil form 100mg to 180mg daily F/u with PCP Acute right ankle pain 01/23/2023 Assessment & Plan (01/23/2023 3:04 PM EDT): Elevate ankle apply ice and rest Open-angle glaucoma 05/02/2021 Peripheral neuropathy 03/06/2021 Overview (06/23/2024): [facility] Aortic dilatation 06/21/2020 Overview (06/23/2024): 3.1 cm noted on echo 05/2020 DM (diabetes mellitus), type 2 with neurological complications 04/29/2019 Overview (06/23/2024): A1C on 04/29 7.3 Severe obesity with body mas s index (BMI) of 35.0 to 39.9 with comorbidity 03/11/2019 Restrictive pattern present on pulmonary functio n testing 10/28/2017 Recurrent major depressive disorder 05/05/2017 Suicidal ideation 05/05/2017 Nocturia 01/20/2017 Vitamin D deficiency 01/20/2017 Mild persistent asthma without complication 12/13 Leukopenia 05/03/2013 Overview (06/23/2024): S/p bone marrow biopsy was normal, followed by Dr Farrell Obstructive sleep apnea 03/25/2013 Overview (06/23/2024): [facility] Polysomnogram: Date 06/22/2013; Wt 225# SE 40%; SM 65%; REM 10%; RDI 9 HI 8, worse in REM (RDI 51 AHI 48) Central apneas 0 Obstructive apneas 0 Mixed apneas 0 hypopneas 22; RERAs 5 ;average oxygen saturation 95% (lowest 77% - without saturations <88% for 5% or more of study); PLMs 9. [facility] Polysomnogram treatment study. Date 07/21/2013. SE 61 % SM 71 %; spent 11 % of the study in REM. At the optimal pressure of 12; RDI 0 (AHI 0), average oxygen saturation was 93%. For the entire study, PLMs ~0. Hemorrhoids 10/12/2012 Adjustment disorder with depressed mood 05/21/20 12 Hyperlipidemia 05/21/2012 Essential hypertension, benign 05/21/2012 Allergic rhinitis 02/11/2012 Anxiety state 12/04/2011 Asthma 12/04/2011 Assessment & Plan (12/05/2023 9:15 AM EDT): Had a recent exacerbation, resolved now. Advised to use albuterol prn for acute episodes of OB, cough. Chronic obstructive lung disease 12/04/2011 Depressive disorder 12/04/2011 Assessment & Plan (06/25/2023 12:17 PM EST): Continue to follow with psychiatrist and therapist Gastroesophageal reflux disease 12/04/2011 Impotence of organic origin 12/04/2011 Essential hypertension 12/04/2011 Assessment & Plan (09/27/2024 2:51 PM EDT): Today his blood pressure is high, I advised low-sodium diet and to take his medications every day Advised to monitor his blood pressure at home and if it persists in the autoflow more than 140/90 to report back to me Assessment & Plan (06/25/2023 12:16 PM EST): Maintenance: BMP: labs reprint today Lipid Panel: as above ASCVD Risk:on rosuvastatin 40mg (today we talk abut importance of be compliant with medications) - Aerobic exercise to reduce BP. Initial goal of 30 min walk 3-5x/week. Increase as tolerated. - low-sodium diet (goal: <2g/day) and heart healthy diet such as DASH to reduce BP and prevent ASCVD. - Home BP monitoring 1-2 x day with goal of <140/90. - Seek immediate medical attention for chest pain, palpitations, SOB, syncope, or sudden changes in mental status. - Do not change or discontinue current prescriptions without first consulting health care provider Assessment & Plan (03/16/2023 9:57 AM EDT): Maintenance: BMP: ordered Lipid Panel: ordered ASCVD Risk: Calculate pending updated labs EKG:already done - I added today lisinopril 10mg plan is if BP not at goal at nurse visit to go up to 40mg - Aerobic exercise to reduce BP. Initial goal of 30 min walk 3-5x/week. Increase as tolerated. - low-sodium diet (goal: <2g/day) and heart healthy diet such as DASH to reduce BP and prevent ASCVD. - Home BP monitoring 1-2 x day with goal of <140/90. - Seek immediate medical attention for chest pain, palpitations, SOB, syncope, or sudden changes in mental status. - Do not change or discontinue current prescriptions without first consulting health care provider Pure hypercholesterolemia 12/04/2011 Encounters Date Type Department Care Team Description 09/27/2024 1:15 PM EDT Office Visit [facility] [address] [place] [id number] Kasey Rodriguez MD Type 2 diabetes mellitus with hyperglycemia, without long-term current use of insulin ([facility]); Major depressive disorder with current active episode, unspecified depression episode severity, unspecified whether recurrent; Essential hypertension; BRI (obstructive sleep apnea); Chronic pain of both knees; On combination antipsychotic drug therapy; Erectile dysfunction, unspecified erectile dysfunction type 09/27/2024 Telephone [facility] [address] [place] [address] Jennifer Quintero RN Care Coordination 09/27/2024 Travel 09/23/2024 Telephone [facility] [address] [place] [phone] Elizabeth Rob MD No Show 09/21/2024 Refill [facility] [address] [place] [address] Kasey Rodriguez MD 09/16/2024 3:30 PM EDT Office Visit [facility] [address] [place] [address] AmericoTiffany diaz, OD Diabetes type 2, no ocular involvement (CMS/HCC) (Primary Dx); 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, partial; Epiretinal membrane (ERM) of right eye; Right posterior capsular opacification; Combined forms of age-related cataract of left eye; Dry eye syndrome of both eyes; Presbyopia 09/16/2024 Travel 09/14/2024 Telephone [facility] [address] [place] [address] Desiree Chan, PharmD 09/09/2024 Patient Outreach [facility] [address] [place] [address] Kasey Rodriguez MD Transition Of Care (Tcm) (HDF-Scheduled (Direct)) 07/26/2024 Telephone [facility] [address] [place] [address] Kasey Rodriguez MD Med Refill from Last 3 Months Immunizations Name Administration Dates Next Due INFLUENZA INJECTABLE QUADRIV ALANT CCIIV4 MDCK Multi-dose vial 03/24/2018 Influenza Injectable Quadriv alant Preservative Free IIV4 MDCK 04/19/2021,04/17/2020,04/28/2019 Influenza injectable quadriv alent preservative free 03/16/2023,03/27/2017 Influenza, High Dose Seasona l, Preservative Free 03/21/2015,05/08/2014,04/01/2013,03/07,06/07/2005 Influenza, IIV3, injectable 04/19/2021,1 ,03/21/2015,05/08,04/01/2013,02/11/2012,03/07/2011 ,06/07/2005 Influenza, Split (incl. matteo fied surface antigen) 02/11/2012 Influenza, Unspecified 03/26/2017 Influenza, seasonal, injecta ble, preservative free 07/02/2012 Pfizer Covid-19 Vaccine 12+ 09/07/2023 Pfizer Covid-19 Vaccine 12+ Bivalent 03/28/2022 Pneumococcal Conjugate PCV 20 03/04/2024 Pneumococcal Polysaccharide PPSV23 03/27/2017,,07/24/2010 RSV Bivalent 06/24/2023 TD (adult), 2 Lf tetanus tox oid, preservative free, adsorbed 03/10/2008,12/21/1997 Td, Adsorbed, Preservative F ree, Adult Use, Lf Unspecified 03/10/2008,12/21/1997 Tdap 12/15/2023,10/10/2013 Zoster, Recombinant 07/18/2021,05/15/2021 Social History Tobacco Use Types Packs/Day Years Used Date Smoking Tobacco: Former Cigarettes Passive Smoke Exposure: Past Smokeless Tobacco: Never Tobacco Cessation:Counseling Given: Not Answered Alcohol Use Standard Drinks/Week Comments Never 0 (1 standard drink = 0.6 oz pur e alcohol) Depression Answer Date Recorded Patient Health Questionnaire-9 Score 4 03/16/2023 Housing Stability Answer Date Recorded What is your housing situation today? I do not have housing (Staying with others, in a hotel, in a half-way, living outside on the street, on a [...] Orientation Straight 04/14/2022 10 :14 AM EDT Last Filed Vital Signs Vital Sign Reading Time Taken Comments Blood Pressure 152/80 09/27/2024 2:17 PM EDT Pulse 65 09/27/2024 1:08 PM EDT Temperature 37.1 ??C (98.7 ??F) 09/27/2024 1:08 PM ED T Respiratory Rate 20 09/27/2024 1:08 PM EDT Oxygen Saturation 99% 09/27/2024 1:08 PM EDT Inhaled Oxygen Concentration - - Weight 102 kg (225 lb 6.4 oz) 09/27/2024 1:08 PM EDT Height 165.1 cm (5' 5 ) 09/27/2024 1:08 PM EDT Body Mass Index 37.51 09/27/2024 1:08 PM EDT Plan of Treatment Upcoming Encounters Date Type Department Care Team (Late st Contact Info) Description 10/10/2024 9:30 AM EDT Medication Management [facility] [address] [place] [phone] 12/29/2024 9:15 AM EDT Office Visit [facility] [address] [place] [phone] Kasey Rodriguez MD [address] [place] [phone] 01/17/2025 1:00 PM EDT Office Visit [facility] [address] [place] [phone] Nupur Peraza Health Maintenance Due Date Last Done Comments CT Colonography 1963 Colonoscopy 1963 Colorectal Cancer Screening 1963 FIT DNA/Cologuard 1963 FIT 1963 FOBT 1963 Sigmoidoscopy 1963 Diabetes: Foot Exam 1973 Alcohol/Substance Use Screening 1975 COVID-19 Vaccine ( season) 2024 09/07/2023, 03/28/2022, 10/30/2021, Additional history exists Influenza Vaccine (#1) 2024 , 04/19/2021, 04/19/2021, Additional history exists Depression Screening 03/16/2024 03/16/2023, 03/16/20 23 Diabetes: Urine Protein Screening 06/25/2024 06/25/2023 Lipid Panel 06/25/2024 06/25/2023 Dental X-Ray: Bitewings 11/12/2024 11/12/2023, 03/10 Dental Oral Exam 12/13/2024 06/14/2024, , 09/09/2022 Dental Prophylaxis 12/13/2024 06/14/2024, 0 11/12/2023, 09/09/2022 SDOH Screening 02/24/2025 02/25/2024 Diabetes: Hemoglobin A1C 03/29/2025 025, 03/04/2024, 06/25/2023, Additional history exists Tobacco Screening 09/27/2025 09/27/2024 Eye Exam 09/16/2026 09/16/2024, 04/0 09/2024, 09/16/2024, Additional history exists Dental X-Ray: Full Mouth 11/12/2026 11/12/2023, 10/14 DTaP/Tdap/Td Vaccines (3 - Td or Tdap) 12/14/2033 12/15/2023, 10/10/2013, 03/10/2008, Additional history exists Zoster Vaccines Completed 07/18/2021, 05/15/2021 RSV Patients and Patients Aged 60 years or older Completed 06/24/2023 HIV Screening Completed 06/25/2023 Hepatitis C Screening Completed 06/25/2023 Pneumococcal Vaccine: 50+ Years Completed 03/04/2024, 03/27/2017, 10/10/2013, Additional history exists HIB Vaccines Aged Out No longer eligi ble based on patient's age to complete this topic HPV Vaccines Aged Out No longer eligi ble based on patient's age to complete this topic Hepatitis A Vaccines Aged Out No long er eligible based on patient's age to complete this topic Hepatitis B Vaccines Aged Out No long er eligible based on patient's age to complete this topic IPV Vaccines Aged Out No longer eligi ble based on patient's age to complete this topic Meningococcal Vaccine Aged Out No anmol lisa eligible based on patient's age to complete this topic RSV under 20 months Aged Out No longe r eligible based on patient's age to complete this topic Rotavirus Vaccines Aged Out No longer eligible based on patient's age to complete this topic Procedures Procedure Name Priority Date/Time Associated Diagnosis Comments CBC WITH AUTO DIFFERENTIAL Routine 09/27/2024 2:12 PM EDT Type 2 diabetes mellitus with hyperglycemia, without long-term current use of insulin ([facility]) Major depressive disorder with current active episode, unspecified depression episode severity, unspecified whether recurrent POCT GLUCOSE Routine 09/27/2024 1:10 PM EDT Type 2 diabetes mellitus with hyperglycemia, without long-term current use of insulin ([facility]) POCT GLYCATED HEMOGLOBIN, TOTAL Routine 09/27/2024 1:10 PM EDT Type 2 diabetes mellitus with hyperglycemia, without long-term current use of insulin ([facility]) OCT, RETINA - OU - BOTH EYES Routine 09/16/2024 4:59 PM EDT Epiretinal membrane (ERM) of right eye PROPHYLAXIS - ADULT Routine 06/14/2024 8 :00 AM EST Dental calculus Dental plaque PERIODIC ORAL EVALUATION - ESTABLISHED PATIENT Routine 06/14/2024 8:00 AM EST INTRAORAL - COMPLETE SERIES OF RADIOGRAPHIC IMAGES Routine 11/12/2023 10:00 AM EDT ALBUMIN, RANDOM URINE W/CREATININE Routine 06/25/2023 10:37 AM EST HEPATITIS C AB W/REFL TO HCV RNA, QN, PCR Routine 06/25/2023 10:34 AM EST Essential hypertension HIV 1/2 ANTIGEN/ANTIBODY, FOURTH GENERATION W/RFL Routine 06/25/2023 10:34 AM EST Essential hypertension LIPID PANEL, STANDARD Routine 06/25/2023 10:34 AM EST Essential hypertension from Last 3 Months or Most Recently Relevant to Health Maintenance Results * (ABNORMAL) CBC auto differential (09/27/2024 2:12 PM EDT) White Blood Count 5.6 4.8 - 10.8 X10*3/uL [facility] Red Blood Count 5.02 4.60 - 5.80 X10*6/uL [facility] Hemoglobin 15.1 14.0 - 18.0 g/dl [facility] Hematocrit 44.9 42.0 - 52.0 % [facility] Mean Corpuscular Volume 89.4 80.0 - 98.0 fL [facility] Mean Corpuscular Hemoglobin 30.1 27.0 - 33.0 pg [facility] Mean Corpuscular HGB Conc 33.6 31.0 - 36.0 g/dl [facility] Red Cell Distribution Width 11.9 11.0 - 16.0 % [facility] Platelet Count 281 160 - 400 X10*3/uL [facility] Mean Platelet Volume 10.9 9.4 - 12.4 fL [facility] Neutrophils Percent Auto 51.2 45 - 73 % [facility] Imm Gran Pct Auto 0.4 0.0 - 0.4 % [facility] Lymphocytes Percent Auto 34.8 20 - 40 % [facility] Monocytes Percent Auto 11.4(H) 2 - 11 % [facility] Eosinophils Percent Auto 1.1 0 - 4 % [facility] Basophils Percent Auto 1.1 0 - 2 % [facility] NRBC Pct Auto 0.0 0.0 - 0.2 /100WBC [facility] Neutrophils Absolute Auto 2.9 2.0 - 8.3 x10*3/uL [facility] Imm Gran Abs Auto 0.02 0.00 - 0.03 X10*3/uL [facility] Lymphocytes Absolute Auto 2.0 1.2 - 4.9 X10*3/uL [facility] Monocytes Absolute Auto 0.6 0.1 - 1.2 X10*3/uL [facility] Eosinophils Absolute Auto 0.1 0.0 - 0.4 X10*3/uL [facility] Basophils Absolute Auto 0.1 0.0 - 0.2 X10*3/uL [facility] NRBC Abs Auto 0.000 0.0 - 0.012 X10*3/uL [facility] Blood Venous blood specimen / Unknown 09/27/2024 2:12 PM EDT 09/27/2024 4:10 PM EDT Kasey Menjivar MD LAB BLOOD ORDERABLES Final Result [facility] [address] [place] [phone] * (ABNORMAL) POCT HGB A1C (09/27/2024 1:10 PM EDT) Pathologist [facility] Hemoglobin A1C 6.6(A) 4.0 - 6.0 % QC Media Lot # [id number] Lot# Expiration Date Blood 09/27/2024 1:10 PM EDT us Kasey Menjivar MD POINT OF CARE TEST EN TER/EDIT ORDERABLES Final Result * POCT Glucose (09/27/2024 1:10 PM EDT) Glucose Blood, POC 120 60 - 200 mg/dL Blood Capillary blood specimen / Unknown 09/27/2024 1:10 PM EDT Kasey Menjivar MD POINT OF CARE TEST EN TER/EDIT ORDERABLES Final Result * Albumin, Random Urine W/Creatinine (06/25/2023 10:37 AM EST) Creatinine, Urine 114.44 mg/dL [facility] Microalbumin Urine <5.0 mg/L [facility] [facility] Microalbum Creatinine Ratio Ur TNP <30 ug/mg cr [facility] Comment:Unable to calculate albumin/creatinine ratio due to lowmicroalbumin or creatinine result. 06/25/2023 10:3 7 AM EST 06/25/2023 11:42 AM EST Kasey Menjivar MD LAB URINE ORDERABLES Final Result Performing Organization Address [facility] Co de Phone Number [facility] [address] [place] [phone] * Hepatitis C Antibody with Reflex to HCV, RNA, Quantitative, Real-Time PCR (06/25/2023 10:34 AM EST) Hepatitis C Antibody Nonreactive Nonreactive [facility] Comment:Antibodies to HCV no t detected; does not exclude early acuteHCV infection. Blood Venous blood specimen / Unknown 06/25/2023 10:34 AM EST 06/25/2023 11:39 AM EST Kasey Menjivar MD LAB BLOOD ORDERABLES Final Result Performing Organization Address [facility] Co de Phone Number [facility] [address] [place] [phone] * HIV-1/2 Antigen and Antibodies, Fourth Generation, with Reflexes (06/25/2023 10:34 AM EST) HIV AB/AG Nonreactive Nonreactive [facility] Comment:HIV-1 p24 Ag and/or HIV-1/HIV-2 Ab not detected.A test result that is nonreactive does not exclude thepossibility of exposure to or infection with HIV-1 and/orHIV-2. Nonreactive results in this assay for individualswith prior exposure to HIV-1 and/or HIV-2 may be due toantigen and antibody levels that are below the limit ofdetection of this assay.The [employer] HIV Ag/Ab Combo assay result andsupplemental assay results should be interpreted inconjunction with the patient's clinical presentation,history and other laboratory results. If the results areinconsistent with clinical evidence, additional testing issuggested to confirm the result. Blood Venous blood specimen / Unknown 06/25/2023 10:34 AM EST 06/25/2023 11:39 AM EST us Kasey Menjivar MD LAB BLOOD ORDERABLES Final Result [facility] [address] [place] [phone] * Lipid Panel, Standard (06/25/2023 10:34 AM EST) Triglycerides 79 <150 mg/dL [facility] Comment:Desirable Triglyceri de: less than 150 mg/dLBorderline High Triglyceride 150-199 mg/dLHigh Triglyceride: 200-499 mg/dLVery High Triglyceride: greater than or equal to 5OO mg/dL Cholesterol 122 <200 mg/dL [facility] Comment:Desirable Cholestero l: less than 200 mg/dLBorderline High Cholesterol: 200-239 mg/dLHigh Cholesterol: greater than 239 mg/dL LDL Cholesterol Calculated 57 <100 mg/dL [facility] Comment:Desirable LDL: less than 100 mg/dLNear Optimal/Above Optimal LDL: 110- 129 mg/dLBorderline High LDL: 130-159 mg/dLHigh LDL: 160-189 mg/dLVery High LDL: greater than or equal to 190 mg/dL HDL Cholesterol 50 >40 mg/dL [facility] Comment:Desirable HDL: great er than 40 mg/dL Note: This HDL assay may give artificially low results in patients with liver disease. Blood Venous blood specimen / Unknown 06/25/2023 10:34 AM EST 06/25/2023 11:39 AM EST Kasey Menjivar MD LAB BLOOD ORDERABLES Final Result [facility] [address] [place] [phone] from Last 3 Months or Most Recently Relevant to Health Maintenance Insurance [facility] [place] [place] [address] [employer]ANDARD [facility] CARE < 65 DENTAL - [facility] * Guarantor: Milind Whitman Account Type Relation to Patient Date of Phone Billing Address Personal/Family Self [facility] [address] Care Teams [employer] Relationship Specialty Start Date End Date Kasey Rodriguez MD [address] [place] [address] PCP - General Internal Medicine 02/23/23 Robert Parkinson 06/12/23
--- OUTSIDE RECORDS SUMMARY | 2024-09-27 17:27 | XMS_ITS ---
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 Medications Medication SIG (Take, Route, Frequency, Duration) Notes Start Date End Date Status clonazePAM 2 MG 1 tablet Orally Once a day Active Dorzolamide HCl 2 % 1 drop into affected eye Ophthalmic Three times a day Active DULoxetine HCl 60 MG 1 capsule Orally On ce a day for 30 day(s) Active Extra Depth Diabetic Shoes with 3 Pair Custom heat-molded multi-density innersoles for 1 year Dx: Active Dry Eye Relief Drops Active Night Splint AFO - L1930 as directed 01/23/2021 Active Custom Orthotics as directed A ctive Extra Depth Diabetic Shoes with 3 Pair Custom heat-molded multi-density innersoles for 1 year Dx: 01/23/2021 Not-Taking Aspir-81 Active Zinc Active Verapamil HCl Active Ventolin HFA 108 (90 Base) MCG/ACT 1 puff as needed Inhalation every 4 hrs Active Vitamin A Active Vitamin C Active Vitamin E Active Omeprazole 20 MG 1 capsule 30 minutes before morning meal Orally Once a day for 30 day(s) Active rOPINIRole HCl 0.5 MG 1 tablet 1 to 3 ho urs before bedtime Orally Once a day for 30 day(s) Active Rosuvastatin Calcium 40 MG 1 tablet Orally Once a day for 30 day(s) Active Tamsulosin HCl Activ e traZODone HCl 150 MG 1 tablet at bedtime Orally Once a day for 30 day(s) Active Loratadine 10 MG 1 tablet Orally Once a day for 30 day(s) Active Montelukast Sodium 10 MG 1 tablet Orally Once a day for 30 day(s) Active glipiZIDE Active Glimepiride 1 MG 1 tablet with breakf ast or the first main meal of the day Orally Once a day for 30 day(s) Active Ketoconazole 2 % as directed Externally Active Fish Oil Active Fluticasone Propionate 50 MCG/ACT 1 spray in each nostril Nasally Once a day for 30 day(s) Active Encounters Encounter Location Date Provider Diagnosis [facility] [address] [place] [address] 07/08/2023 Torin Jones Type 2 diabetes mellitus with diabetic polyneuropathy E11.42 ; Pain in right toe(s) M79.674 ; Tinea unguium B35.1 ; Pain in left toe(s) M79.675 ; Plantar fascial fibromatosis M72.2 ; Hallux valgus (acquired), left foot M20.12 and Hallux valgus (acquired), right foot M20.11 Assessments Encounter Date Diagnosis (ICD Code) Assessment Notes Treatment Notes Treatment Clinical Notes Section Notes 07/08/2023 Type 2 diabetes mellitus with diabetic polyneuropathy (ICD-10 - E11.42) 07/08/2023 Pain in right toe(s) (ICD-10 - M79.674) 07/08/2023 Tinea unguium (ICD-10 - B35.1) 07/08/2023 Pain in left toe(s) (ICD-10 - M79.675) 07/08/2023 Plantar fascial fibromatosis (ICD-10 - M72.2) 07/08/2023 Hallux valgus (acquired), left foot (ICD-10 - M20.12) 07/08/2023 Hallux valgus (acquired), right foot (ICD-10 - M20.11) Plan Of Treatment Medication Medication Name Sig Start Date Stop Date Notes Extra Depth Diabetic Shoes w ith 3 Pair Custom heat-molded multi-density innersoles for 1 year Dx: Next Appt Details Follow Up: 3 Months, Reason: Procedure Notes * Category Sub-Category Detail Notes Debride Nail 6-10 Nail debridement Nail debridem ent performed extensively to reduce/remove overall nail length and girth, subungual debris, and necrotic tissue, by manual and electrical means with use of a nail nipper and/or dremel, to more viable healthy nail plate or bed tissue 6-10. Silver nitrate used for any petechial bleeding as necessary. Patient chooses, no pharmaceutical tx (55238) Keratoma Treatment Parring or Cutting o f Benign Hyperkeratotic Lesion(s) 63146 ( >4 Lesions) - The Benign hyperkeratotic lesions, as described above were pared, and/or cut utilizing a sterile #15 blade, tissue nippers, and/or dremel Progress Notes * Ayuhs MITCHELLArnoldOB:1965 ( 59 yo M)Acc No.[id number]:07/08/2023 Progress Note Patient:?Milind MITCHELL Provider:?Torin Jones DPM :1965???Age:58 Y???Sex:Male Danyel e:07/08/2023 Address:[address] [place], [place] [id number] Pcp:Chandni Ospina Subjective: * Chief Complaints: * ???1. Painful nail(s) aggrev ated by shoes and causing difficulty standing/walking.. * HPI: ???At Risk footcare:?Pt States Last PCP Visit:?Date?07/16/2022 ???Heel pain:?Location:?Proximal plantar aspect of Heel, plantar, Arch, B/L.?Duration:?a year .?Onset/Cause:?unknown, denies trauma.?Course:?resolved.?Aggravated:?walking first thing in the morning/after rest.?Treatments:?AFO-nightsplint, innersoles/orthotics.?Severity/Quality:?considered 1 out of 10.? * ROS:?General/Constitutional:?Nausea?denies.?Vomiting?denies.?Hunger Thirst?denies.?Loss appetite?denies.?Chills?denies.?Fatigue?denies.?Fever?denies.?Night Sweats?denies.?Unexplained weight loss?denies.?Unexplained weight gain?denies.?HEENTM:?Dentures?denies.?Dizziness?denies.?Glasses/contacts?denies.?Retinopathy?de nies.?Blurred/double vision?denies.?TMJ?denies.?Discharge/drainage?denies.?Implants?denies.?Sore throat?denies.?Dental implants?denies.?Hard of hearing ?denies.?Difficulty chewing/swallowing/speaking?denies.?Nose bleeds?denies.?Sore mouth?denies.?Respiratory:?On Oxygen?denies.?Pneumonia/pleurisy?denies.?Bronchitis?denies.?Emphysema?denies.?C oughing?denies.?Cough blood?denies.?Shortness of breath?admits.?Wheezing?denies.?Cardiovascular:?Pacemaker?denies.?MVP?denies.?WPW?denies.?CHF?denies.?Heart attack?denies.?Septal defect?denies.?Rapid beat?denies.?Chest pain ?denies.?Atrial Fib.?denies.?Murmur/Palpitations?denies.?Gastrointestinal:?Hemorrhoids?denies.?Stomach/Abdominal pain?denies.?Dark blood stool?denies.?Irritable bowel ?denies.?Constipation?denies.?Diarrhea?denies.?Hematology:?Swelling?denies.?Clots?denies.?Varicose Veins?denies.?Bruising?denies.?Bleeding problem?denies.?Genitourinary:?Blood urine?denies.?Frequent/Painfu/urination/bladder control?denies.?Kidney stones?denies.?Infection (UTI)?denies.?Nephropathy?denies.?sex trans dis (STD)?denies.?Prostate?denies.?Musculoskeletal:?Hammertoes?denies.?Bunions?denies.?Back Pain?admits.?Muscle Cramps/ Resting?denies.?Muscle cramps / walking?admits.?Generalized aches and pains?denies.?Weakness?denies.?Integ.:?Wright?denies.?Scars?denies.?Corns/calluses?denies.?Ingrown nails?denies.?Painful nails?admits.?Open Sores?denies.?Rashes?denies.?Neurologic:?Difficulty sleeping?denies.?Brain disorder?denies.?Numbness?denies.?Balance trouble?admits.?Confusion?denies.?Fainting/blackouts?denies.?Tingling?denies.?Tr emors?denies.? * Medical History:? * Medications:?Taking Extra De pth Diabetic Shoes with 3 Pair Custom heat-molded multi-density innersoles for 1 year Dx: , Taking Aspir-81 , Taking clonazePAM 2 MG Tablet 1 tablet Orally Once a day , Taking Dorzolamide HCl 2 % Solution 1 drop into affected eye Ophthalmic Three times a day , Taking DULoxetine HCl 60 MG Capsule Delayed Release Sprinkle 1 capsule Orally Once a day , Taking Dry Eye Relief Drops , Taking Fish Oil , Taking Fluticasone Propionate 50 MCG/ACT Suspension 1 spray in each nostril Nasally Once a day , Taking glipiZIDE , Taking Glimepiride 1 MG Tablet 1 tablet with breakfast or the first main meal of the day Orally Once a day , Taking Ketoconazole 2 % Shampoo as directed Externally , Taking Loratadine 10 MG Tablet 1 tablet Orally Once a day , Taking Montelukast Sodium 10 MG Tablet 1 tablet Orally Once a day , Taking Omeprazole 20 MG Capsule Delayed Release 1 capsule 30 minutes before morning meal Orally Once a day , Taking rOPINIRole HCl 0.5 MG Tablet 1 tablet 1 to 3 hours before bedtime Orally Once a day , Taking Rosuvastatin Calcium 40 MG Tablet 1 tablet Orally Once a day , Taking Tamsulosin HCl , Taking traZODone HCl 150 MG Tablet 1 tablet at bedtime Orally Once a day , Taking Verapamil HCl , Taking Ventolin HFA 108 (90 Base) MCG/ACT Aerosol Solution 1 puff as needed Inhalation every 4 hrs , Taking Vitamin A , Taking Vitamin C , Taking Vitamin E , Taking Zinc , Taking Night Splint AFO - L1930 as directed , Taking Custom Orthotics as directed , Not-Taking/PRN Extra Depth Diabetic Shoes with 3 Pair Custom heat-molded multi-density innersoles for 1 year Dx: Objective: * Vitals:? * Examination: ???Ophthalmology Referral: ?DIABETES EYE EXAM?Diabetic Retinopathy Screening:?Yes 08/15/2021?Neurological: ?SENSORY:? Neurological exam demonstrates, reduced vibration sensation, B/L, at Forefoot, 5.07 monofilament test performed at plantar aspects of 5 varied sites per foot shows sensation, reduced , B/L, Neurological exam demonstrates pop of entire PF sheila feet.?TINEL'S COMPRESSION:?Negative tarsal tunnel, gokul pedis, and medial calcaneal nerves, B/L.?BABINSKI REFLEX:?Absent, B/L.?Vascular: ?DP PULSES (B):? 2/4, B/L.?PT PULSES (B):? 2/4, B/L.?CAPILLARY FILL TIME:?3 secs. per digit, B/L.?TROPHIC CONDITION-TEXTURE/ELASTICITY/TURGOR/HAIR GROWTH (B):?normal, B/L.?TEMPERTURE GRADIENT (C):?warm to cool, proximal to distal, B/L.?EDEMA (C):?no edema.?Nails: ?NAILS are:?Elongated, overgrown, dystrophic, lytic, greater than 3mm thick, discolored and friable with crumbly malodorous subungual debris, with dull to no pain on palpation due to neuropathy, 1-5 B/L.?Dermatologic: ?SKIN FINDINGS:? Skin exam reveals Keratotic lesion(s) located at, Medial plantar, IPJ, TA, T5, SUB MTH (s), 1, Heel(s), B/L .?General Examination: ?GENERAL APPEARANCE:?pleasant, alert, well nourished, well developed, well hydrated, with good attention to hygene/body habitus, and in no acute distress.?ORIENTED:?person,place, and time.?FOOT EXAM:?Lower Extremity Neurological Exam performed:?Yes ?Visual exam of foot performed:?Yes ?Date?01/07/2023 ?Sensory testing performed:?sensations diminished ?Pedal pulse taking performed:?2+?Orthopedic: ?MUSCLE STRENGTH:?5/5 all groups in a symmetrical fashion B/L.?FOOT MORPHOLOGY:? rf cavus with excess midfoot pronation.?BUNION:? Medially prominent 1st MPJ, B/L, Lateral tracking 1st MPJ incompletely reducable.? Assessment: * Assessment: 1.?Type 2 diabetes mellitus with diabetic polyneuropathy - E11.42???2.?Pain in right toe(s) - M79.674???3.?Tinea unguium - B35.1 (Primary)???4.?Pain in left toe(s) - M79.675???5.?Plantar fascial fibromatosis - M72.2???6.?Hallux valgus (acquired), left foot - M20.12???7.?Hallux valgus (acquired), right foot - M20.11??? Plan: * Treatment: * Procedures:?Debride Nail 6-10:?Nail debridement?Nail debridement performed extensively to reduce/remove overall nail length and girth, subungual debris, and necrotic tissue, by manual and electrical means with use of a nail nipper and/or dremel, to more viable healthy nail plate or bed tissue 6-10. Silver nitrate used for any petechial bleeding as necessary. Patient chooses, no pharmaceutical tx (38000).?Keratoma Treatment:?Parring or Cutting of Benign Hyperkeratotic Lesion(s)?73076 ( >4 Lesions) - The Benign hyperkeratotic lesions, as described above were pared, and/or cut utilizing a sterile #15 blade, tissue nippers, and/or dremel.? * Procedure Codes:?53642 DEBRI DE NAIL, 6 OR MORE, Modifiers: XS , 27396 TRIM SKIN LESIONS, OVER 4, Modifiers: XS * Follow Up:?3 Months * Images: * The named appointment provid er may or may not be the originator of this progress note, and it is not deemed complete until electronically signed by the appointment provider. Sign off status: Pending * Provider:?Torin Jones DPM Date:? 024 Generated for Hansa day/Ian/Izzy on:?09/27/2024 05:27 PM EDT History and Physical Notes * HPI (History of Present Illness) Category Sub-Category Detail Notes Category Not es Heel pain Duration: a year Severity/Quality: considered 1 out of 10 Location: Proximal plantar asp ect of Heel, plantar, Arch, B/L Onset/Cause: unknown, denies trau elliot Aggravated: walking first thing in the morning/after rest Course: resolved Treatments: AFO-nightsplint, inn ersoles/orthotics At Risk footcare Pt States Last PCP Visit: Date: 3 Examination Category Sub-Category Detail Notes Category Not es Neurological SENSORY: Neurological exa m demonstrates, reduced vibration sensation, B/L, at Forefoot, 5.07 monofilament test performed at plantar aspects of 5 varied sites per foot shows sensation, reduced , B/L, Neurological exam demonstrates pop of entire PF sheila feet BABINSKI REFLEX: Absent, B/L TINEL'S COMPRESSION: Negative tarsal [place] daksha, gokul pedis, and medial calcaneal nerves, B/L Dermatologic SKIN FINDINGS: Skin exam reveal s Keratotic lesion(s) located at, Medial plantar, IPJ, TA, T5, SUB MTH (s), 1, Heel(s), B/L Orthopedic FOOT MORPHOLOGY: rf cavus with excess mid foot pronation BUNION: Medially prominent 1 st MPJ, B/L, Lateral tracking 1st MPJ incompletely reducable MUSCLE STRENGTH: 5/5 all groups in a symmetrical fashion B/L General Examination GENERAL APPEARANCE: pleasant , alert, well nourished, well developed, well hydrated, with good attention to hygene/body habitus, and in no acute distress FOOT EXAM: Lower Extremity Neurological Exa m performed:: Yes Visual exam of foot performed:: Yes Date: 01/07/2023 Sensory testing performed:: sensations d iminished Pedal pulse taking performed:: 2+ ORIENTED: person,place, and ti me Ophthalmology Referral DIABETES EYE EXAM Diabeti c Retinopathy Screening:: Yes 08/15/2021 Vascular DP PULSES (B): 2/4, B/L PT PULSES (B): 2/4, B/L CAPILLARY FILL TIME: 3 secs. per digit, B/L TEMPERTURE GRADIENT (C): warm to cool, p roximal to distal, B/L TROPHIC CONDITION-TEXTURE/ELASTICITY/TURGOR/HAIR GROWTH (B): normal, B/L EDEMA (C): no edema Nails NAILS are: Elongated, overg rown, dystrophic, lytic, greater than 3mm thick, discolored and friable with crumbly malodorous subungual debris, with dull to no pain on palpation due to neuropathy, 1-5 B/L
--- OUTSIDE RECORDS SUMMARY | 2024-09-27 17:27 | XMS_ITS | Patient Health Record ---
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 Role Phone Chandni Ospina Primary Care Provider Torin Arroyo Unavailable [phone] Allergies Allergen (clinical drug ingredient) Drug/Non Drug Allergy documented on EMR Reaction Allergy Type Onset Date Status gabapentin Gabapentin Unknown Drug Allergy Activ e metformin Metformin Unknown Drug Allergy Active mirtazapine Mirtazapine Unknown Drug Allergy Act juan olanzapine Olanzapine Unknown Drug Allergy Activ e sertraline Sertraline Unknown Drug Allergy Activ e Reason For Referral No Information Medications Medication SIG (Take, Route, Frequency, Duration) Notes Start Date End Date Status Aspir-81 Active clonazePAM 2 MG 1 tablet Orally Once a day Active Dorzolamide HCl 2 % 1 drop into affected eye Ophthalmic Three times a day Active DULoxetine HCl 60 MG 1 capsule Orally On ce a day for 30 day(s) Active Night Splint AFO - L1930 as directed 01/23/2021 Active Custom Orthotics as directed A ctive Extra Depth Diabetic Shoes with 3 Pair Custom heat-molded multi-density innersoles for 1 year Dx: 01/23/2021 Not-Taking Dry Eye Relief Drops Active Fish Oil Active Fluticasone Propionate 50 MCG/ACT 1 spray in each nostril Nasally Once a day for 30 day(s) Active glipiZIDE Active Glimepiride 1 MG 1 tablet with breakf ast or the first main meal of the day Orally Once a day for 30 day(s) Active Ketoconazole 2 % as directed Externally Active Vitamin C Active Vitamin E Active Zinc Active Loratadine 10 MG 1 tablet Orally Once a day for 30 day(s) Active Montelukast Sodium 10 MG 1 tablet Orally Once a day for 30 day(s) Active Omeprazole 20 MG 1 capsule 30 minutes before morning meal Orally Once a day for 30 day(s) Active rOPINIRole HCl 0.5 MG 1 tablet 1 to 3 ho urs before bedtime Orally Once a day for 30 day(s) Active Rosuvastatin Calcium 40 MG 1 tablet Orally Once a day for 30 day(s) Active Extra Depth Diabetic Shoes with 3 Pair Custom heat-molded multi-density innersoles for 1 year Dx: Active Tamsulosin HCl Activ e traZODone HCl 150 MG 1 tablet at bedtime Orally Once a day for 30 day(s) Active Verapamil HCl Active Ventolin HFA 108 (90 Base) MCG/ACT 1 puff as needed Inhalation every 4 hrs Active Vitamin A Active Immunizations Vaccine Route Administration Date Status Comme nts COVID-19 Moderna Vaccine Unknown 05/10/2021 Administered 1st 10/08/20 4th 2021 2nd 11/05/20 3rd 05/08/21 Influenza Unknown 04/18/2022 Administered Social History Tobacco Use: Social History Observation Description Date Details (start date - stop date) Former Smoker NA - 06/15/1993 Tobacco Use/Smoking Question Answer Notes Are you a: former smoker When did you stop smoking? 06/15/1993 Additional Findings: Tobacco Non-User Ex-cigaret te smoker Alcohol Screen Question Answer Notes Did you have a drink containing alcohol in the p ast year? No Points 0 Interpretation Negative Tobacco use other than smoking: Question Answer Notes Are you an other tobacco user? No Problems Problem Type SNOMED Code ICD Code Onset Dates Problem Status W/U Status Risk Notes Problem Acquired hallux valgus (15122835) Hallux valgus (acquired), left foot (M20.12) Active confirmed Problem Acquired hallux valgus (83098414) Hallux valgus (acquired), right foot (M20.11) Active confirmed Problem Polyneuropathy due to type 2 diabetes mellitus (134299525) Type 2 diabetes mellitus with diabetic polyneuropathy (E11.42) Active confirmed Problem Polyneuropathy due to diabetes mellitus type I (976865145) Type 1 diabetes mellitus with diabetic polyneuropathy (E10.42) Active confirmed Plan Of Treatment Pending Test Test Name Order Date X ray : Foot, left 3V 01/23/2021 X ray : Foot, right 3V 01/23/2021 42885-[id number] SKIN LESIONS, OVER 4 01/24/20 21 [id number] SKIN LESIONS, OVER 4 05/13/20 21 89348-[id number] SKIN LESIONS, OVER 4 08/12/19 22 Insurance Providers Payer Name Payer Address Payer Phone Subscriber Number Group Number Insured Name Patient Relationship to Insured Coverage Start Date Coverage End Date [facility] [employer] Claims [address] [place] [phone] [id number] Milind Wihtman Self - patient is the insured Medical (General) History Medical History History ICD Code Anxiety Arthritis asthma Depression Gall bladder problems Glaucoma High blood pressure leg pain balance trouble type II diabetes Cataracts Surgical History Surgery Date(Month/Year) gall bladder removal 06/27/2020 R eye surgery cataract/glaucoma 09/2021 Hospitalization History Reason Date(Month/Year) Gall bladder 7 days stay 06/27/2020
--- OUTSIDE RECORDS SUMMARY | 2024-09-27 17:27 | XMS_ITS | Clinical Summary ---
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 Name Role Phone HOMAR BALLARD MD, SERJIO Unavailable Clover SALCIDO RN, ARIANNA Unavailable Unavailable Payers Payer Name Policy Type Policy Number Effective Date Expira tion Date [facility] [id number] MEDICAID [facility] [id number] MEDICARE - [facility] [id number] Problems Condition Name Condition Details Condition Category Status Onset Date Resolution Date Last Treatment Date Treating Clinician Comments ALCOHOL USE, UNSPECIFIED, UNCOMPLICATE D Active 2022-06 00:00: 00 ANXIETY DISORDER, UNSPECIFIED Active 2022-06 00:00: 00 DEPRESSION, UNSPECIFIED Active 2022-06 00:00: 00 TYPE 2 DIABETES MELLITUS WITH UNSPECIFIED COMPLICATION S Active 2022-06 00:00: 00 Allergies, Adverse Reactions, Alerts Allergy Name Allergy Type Status Severity Reaction(s) Onset Date Inactive Date Treating Clinician Comments ZOLOFT Propensity to adverse reactions Active 06-15 23:55: 16 REMERON Propensity to adverse reactions Active 06-15 23:55: 51 ZYPREXA Propensity to adverse reactions Active 06-15 23:56: 10 GABAPENTIN CONTAINING COMPOUND Propensity to adverse reactions Active 06-15 23:55: 00 METFORMIN HCL/ER Propensity to adverse reactions Active 06-15 23:54: 37 Medications Ordered Medication Name Filled Medication Name Start Date Stop Date Current Medication? Ordering Clinician Indication Dosage Frequency Signature (SIG) Comments Components dorzolamide 22.3 mg-timolol 6.8 mg/mL eye drops 2022-06 00:00: 00 Yes [id number] 1 drops TWICE DAILY 1 drops TWICE DAILY (route: ophthalmic (eye)) Med Classific ation: Ophthalmi c Agents Ventolin HFA 90 mcg/actuati on aerosol inhaler 2022-06 00:00: 00 Yes [id number] Unavailable 2 puff EVERY 4 HOURS 2 puff EVERY 4 HOURS (route: inhalation ) Med Classific ation: Respirato ry Therapy Agents lisinopril 10 mg tablet 2022-06 00:00: 00 Yes [id number] Unavailable 10 mg EVERY DAY 10 mg EVERY DAY (route: oral) Med Classific ation: Cardiovas cular Therapy Agents verapamil ER (PM) 100 mg capsule 24hr pellet CT,ext.rele ase 2022-06 00:00: 00 09-13 23:59 :00 No [id number] 100 mg AT BEDTIME 100 mg AT BEDTIME (route: oral) Med Classific ation: Cardiovas cular Therapy Agents clonazepam 2 mg tablet 2022-06 00:00: 00 Yes [id number] 2 mg AT BEDTIME 2 mg AT BEDTIME (route: oral) Med Classific ation: Central Nervous System Agents duloxetine 60 mg capsule,del ayed release 2022-06 00:00: 00 Yes [id number] 60 mg EVERY AM 60 mg EVERY AM (route: oral) Med Classific ation: Central Nervous System Agents trazodone 150 mg tablet 2022-06 00:00: 00 Yes [id number] 150 mg AT BEDTIME NEEDED 150 mg AT BEDTIME NEEDED (route: oral) Med Classific ation: Central Nervous System Agents aspirin 81 mg tablet,yaa yed release 2022-06 00:00: 00 Yes [id number] 81 mg EVERY AM 81 mg EVERY AM (route: oral) Med Classific ation: Hematolog ical Agents Flomax 0.4 mg capsule 2022-06 00:00: 00 Yes [id number] 0.4 mg BEDTIME 0.4 mg BEDTIME (route: oral) Med Classific ation: Genitouri nary Therapy Galzin 50 mg (zinc) capsule 2022-06 00:00: 00 09-13 23:59 :00 No [id number] 50 mg DAILY 50 mg DAILY (route: oral) Med Classific ation: Antidotes and other Reversal Agents glipizide 5 mg tablet 2022-06 00:00: 00 Yes [id number] 5 mg EVERY AM 5 mg EVER Y AM (route: oral) Med Classific ation: Endocrine loratadine 10 mg tablet 2022-06 00:00: 00 Yes [id number] 10 mg EVERY AM 10 mg EVERY AM (route: oral) Med Classific ation: Respirato ry Therapy Agents montelukast 10 mg tablet 2022-06 00:00: 00 09-13 23:59 :00 No [id number] 10 mg BEDTIME 10 mg BEDTIME (route: oral) Med Classific ation: Respirato ry Therapy Agents omeprazole 20 mg tablet,yaa yed release 2022-06 00:00: 00 09-13 23:59 :00 No [id number] 20 mg 2 TIMES DAILY 20 mg 2 TIMES DAILY (route: oral) Med Classific ation: Gastroint estinal Therapy Agents ropinirole 0.5 mg tablet 2022-06 00:00: 00 09-13 23:59 :00 No [id number] 0.5 mg BEDTIME 0.5 mg BEDTIME (route: oral) Med Classific ation: Central Nervous System Agents rosuvastati n 40 mg tablet 2022-06 00:00: 00 Yes [id number] 40 mg BEDTIME 40 mg BEDTIME (route: oral) Med Classific ation: Cardiovas cular Therapy Agents vitamin A 2,400 mcg capsule 2022-06 00:00: 00 09-13 23:59 :00 No [id number] 2400 mcg DAILY 2400 mcg DAILY (route: oral) Med Classific ation: Electroly te Balance-N utritiona l Products Vitamin C 1,000 mg tablet 2022-06 00:00: 00 09-13 23:59 :00 No [id number] 1000 mg EVERY AM 1000 mg EVERY AM (route: oral) Med Classific ation: Electroly te Balance-N utritiona l Products Vitamin D3 50 mcg (2,000 unit) capsule 2022-06 00:00: 00 09-13 23:59 :00 No [id number] 50 mcg EVERY AM 50 mcg EVERY AM (route: oral) Med Classific ation: Electroly te Balance-N utritiona l Products vitamin E 268 mg (400 unit) capsule 2022-06 00:00: 00 09-13 23:59 :00 No [id number] 268 mg DAILY 268 mg DAILY (route: oral) Med Classific ation: Electroly te Balance-N utritiona l Products quetiapine 50 mg tablet 09-13 00:00: 00 Yes [id number] 50 mg BEDTIME 50 mg BEDTIME (route: oral) Med Classific ation: Central Nervous System Agents Vital Signs Vital Name Observation Time Observation Value Commen ts Temperature 2024-09-26 10:19:00.000 98.1 [degF] Temperature 2024-09-25 09:46:00.000 97.8 [degF] Temperature 2024-09-24 10:33:00.000 98.2 [degF] Temperature 2024-09-23 10:22:00.000 97.5 [degF] Temperature 2024-09-22 09:26:00.000 97.5 [degF] Temperature 2024-09-21 23:04:00.000 97.4 [degF] Temperature 2024-09-20 09:57:00.000 98 [degF] Temperature 2024-09-19 10:17:00.000 97.5 [degF] Temperature 2024-09-18 09:38:00.000 97.5 [degF] Temperature 2024-09-17 09:30:00.000 97.6 [degF] Temperature 2024-09-16 10:23:00.000 97.5 [degF] Temperature 2024-09-15 12:36:00.000 97.5 [degF] Temperature 2024-09-15 10:11:00.000 97.4 [degF] Temperature 2024-09-14 12:21:00.000 97.5 [degF] Temperature 2024-09-02 10:24:00.000 98 [degF] Temperature 2024-09-02 10:24:00.000 98 [degF] Temperature 2024-09-01 10:25:00.000 98.1 [degF] Temperature 2024-08-31 10:36:00.000 97.5 [degF] Temperature 2024-08-30 09:56:00.000 97.7 [degF] Temperature 2024-08-29 10:43:00.000 98.1 [degF] Temperature 2024-08-28 08:45:00.000 97.5 [degF] Temperature 2024-08-27 10:07:00.000 98 [degF] Temperature 2024-08-26 11:02:00.000 98.1 [degF] Temperature 2024-08-25 10:13:00.000 98 [degF] Temperature 2024-08-24 10:05:00.000 98 [degF] Temperature 2024-08-23 10:38:00.000 98.1 [degF] Temperature 2024-08-22 10:24:00.000 97.5 [degF] Temperature 2024-08-21 09:59:00.000 97.7 [degF] Temperature 2024-08-20 09:33:00.000 98 [degF] Temperature 2024-08-19 10:00:00.000 97.8 [degF] Temperature 2024-08-18 10:11:00.000 98 [degF] Temperature 2024-08-17 10:26:00.000 98 [degF] Temperature 2024-08-16 10:48:00.000 97.5 [degF] Temperature 2024-08-15 10:09:00.000 98.1 [degF] Temperature 2024-08-14 09:48:00.000 98.1 [degF] Temperature 2024-08-13 10:46:00.000 98 [degF] Temperature 2024-08-12 10:01:00.000 97.4 [degF] Temperature 2024-08-11 09:45:00.000 98 [degF] Temperature 2024-08-10 10:17:00.000 97.4 [degF] Temperature 2024-08-09 09:33:00.000 98.1 [degF] Temperature 2024-08-08 09:38:00.000 98.1 [degF] Temperature 2024-08-07 10:06:00.000 98.4 [degF] Temperature 2024-08-06 09:53:00.000 98.1 [degF] Temperature 2024-08-05 10:15:00.000 98 [degF] BMI (%) 2024-09-13 13:50:55.000 31 kg/m2 Height 2024-09-13 13:50:46.000 65 [in_us] Pulse 2024-09-14 12:21:00.000 72 /min Respirations 2024-09-14 12:21:00.000 20 /min Weight (lbs) 2024-09-13 13:50:55.000 190 [lb_av] Systolic Blood Pressure 2024-09-14 12:21:00.000 122 mm [Hg] Diastolic Blood Pressure 2024-09-14 12:21:00.000 64 mm [Hg] Plan of Treatment Planned Activity Planned Date Details Comments Future Scheduled Test SKILLED NU RSE TO EVALUATE PATIENT, IDENTIFY PRIMARY AND CO-MORBID CONDITIONS CODED PER CODING GUIDELINES, AND DEVELOP PATIENT SPECIFIC PLAN OF CARE THAT INCLUDES PATIENT GOAL FOR HOME HEALTH. [code = SKILLED NURSE TO EVALUATE PATIENT, IDENTIFY PRIMARY AND CO-MORBID CONDITIONS CODED PER CODING GUIDELINES, AND DEVELOP PATIENT SPECIFIC PLAN OF CARE THAT INCLUDES PATIENT GOAL FOR HOME HEALTH.] Future Scheduled Test SKILLED NU RSE TO PERFORM HOME SAFETY AND FALL ASSESSMENT AND PROVIDE INSTRUCTION TO IMPLEMENT HOME SAFETY AND FALL PREVENTION STRATEGIES. [code = SKILLED NURSE TO PERFORM HOME SAFETY AND FALL ASSESSMENT AND PROVIDE INSTRUCTION TO IMPLEMENT HOME SAFETY AND FALL PREVENTION STRATEGIES.] Future Scheduled Test PATIENT GUY S A RISK OF HOSPITALIZATION AND ED USE. SKILLED NURSE TO ESTABLISH SUPPORT MEASURES TO MINIMIZE RISK OF HOSPITALIZATION AND ED USE, AND INSTRUCT PATIENT/CAREGIVER ON METHODS TO REDUCE AVOIDABLE HOSPITALIZATION AND ED USE. [code = PATIENT HAS A RISK OF HOSPITALIZATION AND ED USE. SKILLED NURSE TO ESTABLISH SUPPORT MEASURES TO MINIMIZE RISK OF HOSPITALIZATION AND ED USE, AND INSTRUCT PATIENT/CAREGIVER ON METHODS TO REDUCE AVOIDABLE HOSPITALIZATION AND ED USE.] Future Scheduled Test SKILLED NU RSE TO PROVIDE INSTRUCTION TO PATIENT/CAREGIVER RELATED TO DISCHARGE PLANNING. [code = SKILLED NURSE TO PROVIDE INSTRUCTION TO PATIENT/CAREGIVER RELATED TO DISCHARGE PLANNING.] Future Scheduled Test SKILLED NU RSE TO O/A OF PATIENTS MENTAL/BEHAVIORAL STATUS, ASSESS VITAL SIGNS DAILY [code = SKILLED NURSE TO O/A OF PATIENTS MENTAL/BEHAVIORAL STATUS, ASSESS VITAL SIGNS DAILY ] Future Scheduled Test CLINICAL S UMMARY (SOC/RECERT, 10 DAY, 60 DAY): THE PATIENT IS RECEIVING HOMECARE DUE TO NEW ONSET/EXACERBATION OF: YES RECENT HOSPITALIZATION/INPATIENT ADMISSION RELATED TO: NO NEW OR CHANGED MEDICATIONS PERTINENT TO THE PLAN OF CARE: YES PATIENT LIVING SITUATION/CAREGIVER STATUS: ALONE SUMMARIZE SKILLED NEED: MEDICATION MANAGEMENT, VITAL SIGN ASSESSMENT, MENTAL STATUS ASSESSMENT AND DIAGNOSIS MANAGEMENT [code = CLINICAL SUMMARY (SOC/RECERT, 10 DAY, 60 DAY): THE PATIENT IS RECEIVING HOMECARE DUE TO NEW ONSET/EXACERBATION OF: YES RECENT HOSPITALIZATION/INPATIENT ADMISSION RELATED TO: NO NEW OR CHANGED MEDICATIONS PERTINENT TO THE PLAN OF CARE: YES PATIENT LIVING SITUATION/CAREGIVER STATUS: ALONE SUMMARIZE SKILLED NEED: MEDICATION MANAGEMENT, VITAL SIGN ASSESSMENT, MENTAL STATUS ASSESSMENT AND DIAGNOSIS MANAGEMENT ] Future Scheduled Test SKILLED NU RSE WILL MAINTAIN SITUATIONAL AWARENESS FOR SAFETY AND WILL NOTIFY CLINICAL QUENCHING MACHINE OPERATOR AND PHYSICIAN/PROVIDER WITH ANY CHANGE IN CONDITION. [code = SKILLED NURSE WILL MAINTAIN SITUATIONAL AWARENESS FOR SAFETY AND WILL NOTIFY CLINICAL QUENCHING MACHINE OPERATOR AND PHYSICIAN/PROVIDER WITH ANY CHANGE IN CONDITION.] Future Scheduled Test SKILLED NU RSE FOR MEDICATION ADMINISTRATION PER MEDICATION LIST TO BE PERFORMED DAILY [code = SKILLED NURSE FOR MEDICATION ADMINISTRATION PER MEDICATION LIST TO BE PERFORMED DAILY ] Future Scheduled Test SKILLED NU RSE TO PRE-POUR MEDICATION PER MEDICATION LIST TILL NEXT LONG-TERM VISIT [code = SKILLED NURSE TO PRE-POUR MEDICATION PER MEDICATION LIST TILL NEXT LONG-TERM VISIT ] Future Scheduled Test SKILLED NU RSE FOR O/A AND SKILLED TEACHING RELATED TO MANAGEMENT OF DEPRESSIVE SYMPTOMS AND/OR DEPRESSION. SN TO REPORT SIGNIFICANT CHANGE IN DEPRESSIVE SYMPTOMS TO CLINICAL PROVIDER FOR EARLY INTERVENTION. [code = SKILLED NURSE FOR O/A AND SKILLED TEACHING RELATED TO MANAGEMENT OF DEPRESSIVE SYMPTOMS AND/OR DEPRESSION. SN TO REPORT SIGNIFICANT CHANGE IN DEPRESSIVE SYMPTOMS TO CLINICAL PROVIDER FOR EARLY INTERVENTION.] Future Scheduled Test SKILLED NU RSE FOR O/A OF PATIENT'S RISK FOR VIOLENCE (TOWARD SELF OR OTHERS) AND TO PROVIDE INTERVENTION TECHNIQUES TO PROMOTE SAFETY TO PATIENT AND OTHERS [code = SKILLED NURSE FOR O/A OF PATIENT'S RISK FOR VIOLENCE (TOWARD SELF OR OTHERS) AND TO PROVIDE INTERVENTION TECHNIQUES TO PROMOTE SAFETY TO PATIENT AND OTHERS] Future Scheduled Test SKILLED NU RSE FOR O/A AND SKILLED TEACHING OF COPING SKILLS TO MANAGE ANXIETY AND MAINTAIN SAFETY. [code = SKILLED NURSE FOR O/A AND SKILLED TEACHING OF COPING SKILLS TO MANAGE ANXIETY AND MAINTAIN SAFETY.] Future Scheduled Test SKILLED NU RSE FOR O/A OF ALTERED MOOD [code = SKILLED NURSE FOR O/A OF ALTERED MOOD] Future Scheduled Test SKILLED NU RSE TO ASSESS PATIENTS PSYCHOSOCIAL STATUS TO IDENTIFY POTENTIAL ISSUES THAT MAY COMPLICATE THE PROVISION OF THE PLAN OF CARE INCLUDING THE PATIENTS ABILITY TO ACCESS COMMUNITY RESOURCES AND PSYCHOSOCIAL SUPPORT SERVICES. [code = SKILLED NURSE TO ASSESS PATIENTS PSYCHOSOCIAL STATUS TO IDENTIFY POTENTIAL ISSUES THAT MAY COMPLICATE THE PROVISION OF THE PLAN OF CARE INCLUDING THE PATIENTS ABILITY TO ACCESS COMMUNITY RESOURCES AND PSYCHOSOCIAL SUPPORT SERVICES.] Future Scheduled Test SKILLED NU RSE FOR O/A OF CLIENT'S SOCIAL ISOLATION AND PROVIDE ASSISTANCE TO CLIENT IN DEVELOPMENT OF PLANNED ACTIVITIES [code = SKILLED NURSE FOR O/A OF CLIENT'S SOCIAL ISOLATION AND PROVIDE ASSISTANCE TO CLIENT IN DEVELOPMENT OF PLANNED ACTIVITIES] Goal 2023-08-06 Patient Goal - T AKING MY MEDS AND NO DRINKING ALCOHOL Goal 2023-10-05 Patient Goal - T AKING MY MEDS AND NO DRINKING ALCOHOL Goal 2023-12-04 Patient Goal - T AKING MY MEDS AND NO DRINKING ALCOHOL Goal 2024-02-02 Patient Goal - T AKING MY MEDS AND NO DRINKING ALCOHOL Goal 2024-04-04 Patient Goal - T AKING MY MEDS AND NO DRINKING ALCOHOL Goal 2024-06-01 Patient Goal - T AKING MY MEDS AND NO DRINKING ALCOHOL Goal 2024-08-01 Patient Goal - T AKING MY MEDS AND NO DRINKING ALCOHOL Goal Patient Goal - T AKING MY MEDS AND NO DRINKING ALCOHOL Goal Provider Goal - A PLAN OF CARE WILL BE ESTABLISHED THAT MEETS PATIENT'S LONG-TERM NEEDS AND INCLUDES PATIENT GOAL FOR HOME HEALTH. Goal Provider Goal - PATIENT/CAREGIVER WILL VERBALIZE/DEMONSTRATE EFFECTIVE HOME SAFETY AND FALL PREVENTION STRATEGIES THROUGHOUT CERTIFICATION PERIOD. Goal Provider Goal - PATIENT WILL HAVE SUPPORT MEASURES ESTABLISHED TO PREVENT HOSPITALIZATION AND ED USE AND PATIENT/CAREGIVER WILL VERBALIZE/DEMONSTRATE METHODS TO REDUCE AVOIDABLE HOSPITALIZATION AND ED USE BY END OF EPISODE. Goal Provider Goal - PATIENT/CAREGIVER WILL VERBALIZE UNDERSTANDING OF DISCHARGE PLANNING INSTRUCTIONS BY DATE OF DISCHARGE. Goal Provider Goal - ALTERED MENTAL/BEHAVIORAL STATUS WILL BE IDENTIFIED PROMPTLY AND INTERVENTION INITIATED QUICKLY TO MINIMIZE ASSOCIATED RISKS THROUGHOUT CERTIFICATION PERIOD. Goal Provider Goal - PATIENT WILL REMAIN SAFE, FREE FROM HOSPITALIZATION, AND ADHERE TO THE SKILLED NURSES PLAN OF CARE THROUGHOUT THE CERTIFICATION PERIOD. Goal Provider Goal - PATIENT WILL REMAIN SAFE IN THE COMMUNITY AND WILL BE FREE OF DANGER TO SELF AND OTHERS THROUGHOUT THE CERTIFICATION PERIOD. Goal Provider Goal - PATIENT WILL COMPLY WITH MEDICATION WHEN NURSE ADMINISTERS THROUGHOUT CERTIFICATION PERIOD. Goal Provider Goal - PATIENT WILL COMPLY WITH MEDICATION WHEN SKILLED NURSE PRE-POURS MEDICATION THROUGHOUT CERTIFICATION PERIOD. Goal Provider Goal - PATIENT WILL REMAIN SAFE WITHOUT DECOMPENSATION IN DEPRESSIVE CONDITION, WHILE MAINTAINING OPTIMAL LEVEL OF MENTAL HEALTH AND WELL BEING THROUGHOUT CERTIFICATION PERIOD. Goal Provider Goal - PATIENT WILL REMAIN SAFE IN COMMUNITY WITHOUT EVIDENCE OF INJURY/HARM TO SELF OR OTHERS THROUGHOUT CERTIFICATION PERIOD. Goal Provider Goal - PATIENT WILL BE ABLE TO PERFORM DAILY FUNCTIONS AND HAVE OPTIMAL IMPROVEMENT IN LEVEL OF ANXIETY THROUGHOUT CERTIFICATION PERIOD. Goal Provider Goal - PATIENT WILL BE ABLE TO PERFORM DAILY FUNCTIONS AND HAVE OPTIMAL IMPROVEMENT IN MOOD STABILITY THROUGHOUT CERTIFICATION PERIOD. Goal Provider Goal - PSYCHOSOCIAL NEEDS WILL BE IDENTIFIED AND PLAN IMPLEMENTED TO MINIMIZE RISK THROUGHOUT CERTIFICATION PERIOD. Goal Provider Goal - PATIENT WILL DEMONSTRATE AN INCREASED INTEREST IN SOCIALIZATION AND ACTIVITIES BY THE END OF THE CERTIFICATION PERIOD. Progress Notes Progress Notes <paragraph>[Visit Date: 2024 by ARIANNA SALCIDO RN]:</paragraph><paragraph>PATIENT EDUCATED ABOUT IMPORTANCE OF DENTAL CARE, INCLUDING BRUSHING TEETH/FLOSSING DAILY AND HAVING ROUTINE CLEANINGS TO PROMOTE HEALTH, PATIENT VERBALIZED UNDERSTANDING.</paragraph> <paragraph>[Visit Date: 2024 by ARIANNA SALCIDO RN]:</paragraph><paragraph>SN EDUCATED PATIENT THAT WAYS TO PROMOTE SLEEP INCLUDE NOT WATCHING TV/USING CELL PHONE WHILE IN BED, PRACTICING MEDITATION/RELAXING ACTIVITIES PRIOR TO GOING TO BED, AND NOT EATING/DRINKING A FEW HOURS BEFORE BED TO REDUCE THE RISK OF NEEDING TO USE THE BATHROOM THROUGHOUT THE NIGHT, PATIENT VERBALIZED UNDERSTANDING.</paragraph> <paragraph>[Visit Date: 2024 by ARIANNA SALCIDO RN]:</paragraph><paragraph>PATIENT EDUCATED ON IMPORTANCE OF HAVING A HEALTH CARE PROXY; A HEALTH CARE PROXY ALLOWS YOU TO DECIDE WHO WILL MAKE DECISIONS FOR YOU IF AN ACCIDENT OR ILLNESS PREVENTED YOU FROM BEING UNABLE TO, PATIENT VERBALIZED UNDERSTANDING.</paragraph> <paragraph>[Visit Date: 2024 by ARIANNA SALCIDO RN]:</paragraph><paragraph>PATIENT EDUCATED THAT LACK OF AMBULATION/ACTIVITY INCREASES THE RISK FOR SKIN BREAKDOWN/OPEN AREAS, WAYS TO REDUCE SKIN IMPAIRMENT INCLUDE CHANGING POSITIONS OFTEN, SUPPORTING SELF WITH PILLOWS, AND EATING A WELL BALANCED DIET, PATIENT VERBALIZED UNDERSTANDING.</paragraph> <paragraph>[Visit Date: 2024 by ARIANNA SALCIDO RN]:</paragraph><paragraph>SN EDUCATED PATIENT ABOUT REMOVING/USING CAUTION AROUND FALL HAZARDS FROM AROUND THE HOME, FALL HAZARDS INCLUDE CLUTTER IN THE WALK WAY, OVERLAPPING RUGS, AND STAIRS, PATIENT VERBALIZED UNDERSTANDING.</paragraph> <paragraph>[Visit Date: 2024 by ARIANNA SALCIDO RN]:</paragraph><paragraph>PATIENT EDUCATED ABOUT A WELL BALANCED DIET INCLUDING FRESH FRUITS/VEGETABLES, WHOLE GRAINS, AND LIMITING FRIED/SUGARY FOODS, A BALANCED DIET PREVENTS OR TREATS OTHER DISEASE PROCESSES SUCH DIABETES OR HYPERTENSION, PATIENT VERBALIZED UNDERSTANDING.</paragraph> Encounters Start Date/Time End Date/Time Encounter Type Admission Type Attending [facility] Care Department Encounter ID Discharge Date Discharge Status Discharge Condition Discharge Reason Percent Goals Met 2023-06-12 00:00:00 2024-10-03 00:00:00 Outpatient RECERTIFIC ARIANNA [facility] [id number]
--- OUTSIDE RECORDS SUMMARY | 2024-09-27 17:27 | XMS_ITS | Encounter Summary ---
Author Organization [employer] Address [address] [facility] [address] [place] [address] Care Team Providers Care Sewing Machines Salesperson Name Role Phone Kasey Rodriguez MD Primary Care Provide r Reason for Referral * Consultation (Routine) - Authorized Specialty Diagnoses / Procedures Referred By Mike mckinley Referred To Contact Pharmacy Diagnoses Type 2 diabetes mellitus with hyperglycemia, without long-term current use of insulin (CMS/[facility]) Major depressive disorder with current active episode, unspecified depression episode severity, unspecified whether recurrent Essential hypertension Kasey Rodriguez MD [address] [place] [address] Phone: tel: fax: Referral ID Status Reason Start Date Expiration Date Visits Requested Visits Authorized [id number] Authorized Continuity of Care 09/27/2024 09/27/2025 6 6 * Consultation (Routine) - Pending Review Specialty Diagnoses / Procedures Referred By Mike mckinley Referred To Contact Urology Diagnoses Erectile dysfunction, unspecified erectile dysfunction type Kasey Rodriguez MD [address] [place] [phone] Phone: tel: fax: Referral ID Status Reason Start Date Expiration Date Visits Requested Visits Authorized [id number] Pending Review Specialty Services Required 09/27/2024 09/27/2025 1 1 * Hospital - Outpatient (Routine) - Pending Review Specialty Diagnoses / Procedures Referred By Contac t Referred To Contact Diagnoses BRI (obstructive sleep apnea) Procedures Polysomnography Kasey Rodriguez MD [address] [place] [address] Phone: tel: fax: [address] Phone: tel: fax: Referral ID Status Reason Start Date Expiration Date V isits Requested Visits Authorized [id number] Pending Review 09/27/2024 09/27/2025 1 1 Reason for Visit * Reason Comments Hospital follow up Encounter Details Date Type Department Care Team (Latest Contact Info) Description 09/27/2024 1:15 PM EDT Office Visit [facility] [address] [place] [address] Kasey Rodriguez MD [address] [place] [address] Type 2 diabetes mellitus with hyperglycemia, without long-term current use of insulin ([facility]); Major depressive disorder with current active episode, unspecified depression episode severity, unspecified whether recurrent; Essential hypertension; BRI (obstructive sleep apnea); Chronic pain of both knees; On combination antipsychotic drug therapy; Erectile dysfunction, unspecified erectile dysfunction type Social History Tobacco Use Types Packs/Day Years [...] AM EDT documented as of this encounter Last Filed Vital Signs Vital Sign Reading [...] Mass Index 37.51 09/27/2024 1:08 PM EDT documented in this encounter Progress Notes * Kasey Menjivar MD - 09/27/2024 1:15 PM EDT SUBJECTIVE: Milind Whitman is a 59 y.o. year old male who presents for [facility] (09/04/2024 - 09/13/2024) Patient presented for admission following being found in the community with AMS. Patient reported auditory hallucinations which have been ongoing for an indeterminate amount of time. Treatment focused on decreasing depression and SI ideation, as well as symptoms of withdrawal. Once stable discharged home. Medication changes that occurred during hospitalization include: Added Quetiapine 50 mg by mouth at bedtime (for depression) Changed: none Discontinued: none Acute Concerns: Patient continues to complain of insomnia, reports he only slept today 2 hours, he has VNA servicesbut he only speak [place] and he cannot communicate with them regarding which medications are for sleeping, he would like for me to let them know that if it is possible for him to have to [place]-speaking visiting nurse Patient reports he still has not being called for his sleep studies and he has not been able to usehis CPAP machine because of this Patient today also complains of erectile dysfunction, he reports he does not have any erections in the mornings, he would like to be seen by a specialist Social History Social History Narrative Not on file Patient Active Problem List Diagnosis Primary hypertension Acute right ankle pain Chest pain Skin rash Allergic rhinitis Anxiety state Asthma Chronic obstructive lung disease (CMS/HCC) Depressive disorder Gastroesophageal reflux disease Hemorrhoids Impotence of organic origin Essential hypertension Type 2 diabetes mellitus with hyperglycemia, without long-term current use of insulin (CMS/HCC) BRI (obstructive sleep apnea) Colon cancer screening Periodontal disease Dental plaque Missing teeth, acquired Aortic dilatation (CMS/HCC) Adjustment disorder with depressed mood History of psychosis Hyperlipidemia Leukopenia Mild persistent asthma without complication Neutropenia (CMS/HCC) Nocturia Open-angle glaucoma Peripheral neuropathy Pure hypercholesterolemia Recurrent major depressive disorder (CMS/HCC) Restrictive pattern present on pulmonary function testing Severe obesity with body mass index (BMI) of 35.0 to 39.9 with comorbidity (CMS/HCC) Suicidal ideation Essential hypertension, benign Vitamin D deficiency Obstructive sleep apnea DM (diabetes mellitus), type 2 with neurological complications (CMS/HCC) Partial edentulism Major depressive disorder with current active episode Chronic pain of both knees On combination antipsychotic drug therapy Erectile dysfunction No family history on file. Review of Systems Constitutional: Negative. HENT: Negative. Respiratory: Negative. Cardiovascular: Negative. Psychiatric/Behavioral: Positive for sleep disturbance. The patient is nervous/anxious. Patient OBJECTIVE: Vitals: 09/27/24 1308 09/27/24 1417 BP: (!) 148/85 (!) 152/80 BP Location: Left arm Patient Position: Sitting BP Cuff Size: Large adult Pulse: 65 Resp: 20 Temp: 98.7 ??F (37.1 ??C) TempSrc: Temporal SpO2: 99% Weight: 225 lb 6.4 oz (102 kg) Height: 5' 5 (1.651 m) Physical Exam Constitutional: Appearance: Normal appearance. Cardiovascular: Rate and Rhythm: Normal rate and regular rhythm. Pulmonary: Effort: Pulmonary effort is normal. Breath sounds: Normal breath sounds. Abdominal: General: Abdomen is flat. Palpations: Abdomen is soft. Musculoskeletal: Right lower leg: No edema. Left lower leg: No edema. Neurological: Mental Status: He is alert. Follow Up: Follow up in about 3 months (around 12/27/2024) for Chronic conditions. Current Outpatient Medications on File Prior to Visit Medication Sig Dispense Refill Aspirin Low Dose 81 MG EC tablet TAKE ONE TABLET BY MOUTH EVERY DAY ^1R1 90 tablet 1 Blood Glucose Monitoring Suppl ([employer] ULTRA 2) w/Device kit Use to test blood sugar two times daily 1 kit 0 Blood Pressure Monitor kit Check blood pressure twice a wee. Dx hypertension 1 kit 0 clonazePAM (KlonoPIN) 2 MG tablet Take 2 mg by mouth at bedtime. D3 Super Strength 50 MCG (2000 UT) capsule TAKE 1 CAPSULE BY MOUTH EVERY DAY 90 capsule 0 dorzolamide-timolol (Cosopt) 2-0.5 % ophthalmic solution INSTILL 1 DROP IN EACH EYE TWICE DAILY DULoxetine (Cymbalta) [address] capsule Take 60 mg by mouth in the morning. fluticasone (Flonase) 50 MCG/ACT nasal spray INSTILL 2 SPRAYS IN EACH NOSTRIL ONCE DAILY NEEDED Fluticasone-Salmeterol 250-50 MCG/ACT aerosol powder INHALE ONE PUFF BY MOUTH TWICE A DAY RINSE MOUTH AFTER USING (BULK) 60 each 11 glipiZIDE XL (Glucotrol XL) 2.5 MG 24 hr tablet TAKE ONE TABLET BY MOUTH EVERY MORNING DO NOT BREAK, CRUSH, DISSOLVE OR CHEW ^1R1 30 tablet 11 ibuprofen 400 MG tablet TAKE 1 TABLET BY MOUTH EVERY 6 HOURS NEEDED FOR PAIN OR FEVER 20 tablet 0 Lancets ([employer]uch Del[employer] Innovate Plus Vitwiv14T) misc USE DIRECTED TWO TIMES A DAY (BULK) 100 each 11 lisinopril 10 MG tablet TAKE ONE TABLET BY MOUTH EVERY MORNING ^1R1 30 tablet 11 loratadine (Claritin) 10 MG tablet TAKE ONE TABLET BY MOUTH EVERY MORNING ^1R1 90 tablet 3 montelukast (Singulair) 10 MG tablet Take 10 mg by mouth at bedtime. omeprazole (PriLOSEC) [address] capsule Take 20 mg by mouth. OneTouch Delica Lancets 33G [facility] Use 1 lancet to monitor blood glucose twice daily 100 each 3 OneTouch Ultra Test test strip USE DIRECTED TWO TIMES A DAY (BULK) 100 strip 11 QUEtiapine (SEROquel) 50 MG tablet Take 1 tablet by mouth at bedtime. rOPINIRole (Requip) 0.5 MG tablet TAKE 1 TABLET BY MOUTH DAILY BEFORE DINNER rosuvastatin (Crestor) 40 MG tablet TAKE ONE TABLET BY MOUTH AT BEDTIME ^1R4 30 tablet 11 tamsulosin (Flomax) 0.4 MG 24 hr capsule TAKE 1 CAPSULE BY MOUTH EVERY DAY 30 MINUTES AFTER THE SAME MEAL traZODone (Desyrel) 150 MG tablet Take 150 mg by mouth if needed at bedtime. Ventolin HFA 108 (90 Base) MCG/ACT inhaler INHALE 2 PUFFS BY MOUTH EVERY 6 HOURS NEEDED FOR WHEEZING (BULK) 18 g 6 verapamil ER (Verelan PM) 100 MG 24 hr capsule Take 1 capsule by mouth at bedtime. No current facility-administered medications on file prior to visit. Problem List Items Addressed This Visit Type 2 diabetes mellitus with hyperglycemia, without long-term current use of insulin ([facility]) Diabetes is: controlled - Lab Results Component Value Date HGBA1C 6.6 (A) 09/27/2024 HGBA1C 6.3 (A) 03/04/2024 HGBA1C 6.0 06/25/2023 - Lab Results Component Value Date MICROALBUR <5.0 06/25/2023 CREATININE 0.99 06/25/2023 -Changes: None - Diabetic eye exam: Up-to-date - Diabetic foot exam: Pending - Continue lifestyle modifications - Continue current medications - Follow up: 3 months Relevant Orders POCT HGB A1C (Completed) POCT Glucose (Completed) CBC auto differential Comprehensive Metabolic Panel HIV-1/2 Antigen and Antibodies, Fourth Generation, with Reflexes Hepatitis C Antibody with Reflex to HCV, RNA, Quantitative, Real-Time PCR Lipid Panel, Standard Vitamin D, 25-Hydroxy, Total, Immunoassay TSH with Reflex to Free T4 Referral to Pharmacy [place] Major depressive disorder with current active episode Continue same medications prescribed Hospital discharge Do not miss appointment with psychiatrist Dr. Buckley, patient reports he has an appointment on September 29, 2024 Continue to follow-up with therapist Relevant Orders CBC auto differential Comprehensive Metabolic Panel HIV-1/2 Antigen and Antibodies, Fourth Generation, with Reflexes Hepatitis C Antibody with Reflex to HCV, RNA, Quantitative, Real-Time PCR Lipid Panel, Standard Vitamin D, 25-Hydroxy, Total, Immunoassay TSH with Reflex to Free T4 Referral to Pharmacy [place] Essential hypertension Today his blood pressure is high, I advised low-sodium diet and to take his medications every day Advised to monitor his blood pressure at home and if it persists in the autoflow more than 140/90 to report back to me Relevant Orders Referral to Pharmacy [place] BRI (obstructive sleep apnea) I ordered for him again his sleep studies Relevant Orders Polysomnography Chronic pain of both knees I will prescribe diclofenac gel to apply twice daily if needed Relevant Medications Diclofenac Sodium 1 % gel On combination antipsychotic drug therapy EKG done today in light patient is on trazodone and quetiapine Normal sinus rhythm, heart rate is 61, QTc is 406/409, ST inversions in aVF and III, no ST changes Relevant Orders ECG 12 lead Erectile dysfunction I refer patient to urology Relevant Orders Referral to Urology documented in this encounter Miscellaneous Notes * Assessment & Plan Note - Kasey Menjivar MD - 09/27/2024 2:56 PM EDT Associated Problem(s): On combination antipsychotic drug therapy EKG done today in light patient is on trazodone and quetiapine Normal sinus rhythm, heart rate is 61, QTc is 406/409, ST inversions in aVF and III, no ST changes * Assessment & Plan Note - Kasey Menjivar MD - 09/27/2024 2:53 PM EDT Associated Problem(s): Major depressive disorder with current active episode Continue same medications prescribed Hospital discharge Do not miss appointment with psychiatrist Dr. Buckley, patient reports he has an appointment on September 29, 2024 Continue to follow-up with therapist * Assessment & Plan Note - Kasey Menjivar MD - 09/27/2024 2:53 PM EDT Associated Problem(s): Type 2 diabetes mellitus with hyperglycemia, without long-term current use of insulin ([facility]) Diabetes is: controlled - Lab Results Component Value Date HGBA1C 6.6 (A) 09/27/2024 HGBA1C 6.3 (A) 03/04/2024 HGBA1C 6.0 06/25/2023 - Lab Results Component Value Date MICROALBUR <5.0 06/25/2023 CREATININE 0.99 06/25/2023 -Changes: None - Diabetic eye exam: Up-to-date - Diabetic foot exam: Pending - Continue lifestyle modifications - Continue current medications - Follow up: 3 months * Assessment & Plan Note - Kasey Menjivar MD - 09/27/2024 2:52 PM EDT Associated Problem(s): Chronic pain of both knees I will prescribe diclofenac gel to apply twice daily if needed * Assessment & Plan Note - Kasey Menjivar MD - 09/27/2024 2:51 PM EDT Associated Problem(s): Erectile dysfunction I refer patient to urology * Assessment & Plan Note - Kasey Menjivar MD - 09/27/2024 2:51 PM EDT Associated Problem(s): Essential hypertension Today his blood pressure is high, I advised low-sodium diet and to take his medications every day Advised to monitor his blood pressure at home and if it persists in the autoflow more than 140/90 to report back to me * Assessment & Plan Note - Kasey Menjivar MD - 09/27/2024 2:51 PM EDT Associated Problem(s): BRI (obstructive sleep apnea) I ordered for him again his sleep studies documented in this encounter Plan of Treatment Upcoming Encounters Date Type Department Care Team (Late st Contact Info) Description 10/10/2024 9:30 AM EDT Medication Management [facility] [address] [place] [address] 12/29/2024 9:15 AM EDT Office Visit [facility] [address] [place] [phone] Kasey Rodriguez MD [address] [place] [address] 01/17/2025 1:00 PM EDT Office Visit [facility] [address] [place] [address] Nupur Peraza Pending Results Name Type Priority Associated Diagnoses Date /Time ECG 12 lead ECG Routine On combination antipsychotic drug therapy 09/27/2024 3:56 PM EDT Scheduled Orders Name Type Priority Associated Diagnoses Orde r Schedule Comprehensive Metabolic Panel Lab Routine Type 2 diabetes mellitus with hyperglycemia, without long-term current use of insulin ([facility]) Major depressive disorder with current active episode, unspecified depression episode severity, unspecified whether recurrent Expected: 09/27/2024 (Approximate), Expires: 09/27/2025 HIV-1/2 Antigen and Antibodies, Fourth Generation, with Reflexes Lab Routine Type 2 diabetes mellitus with hyperglycemia, without long-term current use of insulin ([facility]) Major depressive disorder with current active episode, unspecified depression episode severity, unspecified whether recurrent Expected: 09/27/2024 (Approximate), Expires: 09/27/2025 Hepatitis C Antibody with Reflex to HCV, RNA, Quantitative, Real-Time PCR Lab Routine Type 2 diabetes mellitus with hyperglycemia, without long-term current use of insulin ([facility]) Major depressive disorder with current active episode, unspecified depression episode severity, unspecified whether recurrent Expected: 09/27/2024, Expires: 09/27/2025 Lipid Panel, Standard Lab Routine Type 2 diabetes mellitus with hyperglycemia, without long-term current use of insulin ([facility]) Major depressive disorder with current active episode, unspecified depression episode severity, unspecified whether recurrent Expected: 09/27/2024 (Approximate), Expires: 09/27/2025 Vitamin D, 25-Hydroxy, Total, Immunoassay Lab Routine Type 2 diabetes mellitus with hyperglycemia, without long-term current use of insulin ([facility]) Major depressive disorder with current active episode, unspecified depression episode severity, unspecified whether recurrent Expected: 09/27/2024 (Approximate), Expires: 09/27/2025 TSH with Reflex to Free T4 Lab Routine Type 2 diabetes mellitus with hyperglycemia, without long-term current use of insulin ([facility]) Major depressive disorder with current active episode, unspecified depression episode severity, unspecified whether recurrent Expected: 09/27/2024 (Approximate), Expires: 09/27/2025 Polysomnography [facility] Routine BRI (obstructive sleep apnea) Expected: 09/27/2024 (Approximate), Expires: 09/27/2025 Scheduled Referrals Name Type Priority Associated Diagnoses Orde r Schedule Referral to Urology Outpatient Referral Routine Erectile dysfunction, unspecified erectile dysfunction type Expected: 09/27/2024 (Approximate), Expires: 09/27/2025 Referral to Pharmacy [place] Outpatient Referral Routine Type 2 diabetes mellitus with hyperglycemia, without long-term current use of insulin ([facility]) Major depressive disorder with current active episode, unspecified depression episode severity, unspecified whether recurrent Essential hypertension Ordered: 09/27/2024 documented as of this encounter Procedures Procedure Name Priority Date/Time Associated Diagnosis Comments CBC WITH AUTO DIFFERENTIAL Routine 09/27/2024 2:12 PM EDT Type 2 diabetes mellitus with hyperglycemia, without long-term current use of insulin ([facility]) Major depressive disorder with current active episode, unspecified depression episode severity, unspecified whether recurrent POCT GLYCATED HEMOGLOBIN, TOTAL Routine 09/27/2024 1:10 PM EDT Type 2 diabetes mellitus with hyperglycemia, without long-term current use of insulin ([facility]) POCT GLUCOSE Routine 09/27/2024 1:10 PM EDT Type 2 diabetes mellitus with hyperglycemia, without long-term current use of insulin ([facility]) documented in this encounter Results * (ABNORMAL) CBC auto differential (09/27/2024 2:12 PM EDT) White Blood Count 5.6 4.8 - 10.8 X10*3/uL [facility] Red Blood Count 5.02 4.60 - 5.80 X10*6/uL [facility] Hemoglobin 15.1 14.0 - 18.0 g/dl [facility] Hematocrit 44.9 42.0 - 52.0 % [facility] Mean Corpuscular Volume 89.4 80.0 - 98.0 fL [facility] Mean Corpuscular Hemoglobin 30.1 27.0 - 33.0 pg [facility] Mean Corpuscular HGB Conc 33.6 31.0 - 36.0 g/dl [facility] Red Cell Distribution Width 11.9 11.0 - 16.0 % [facility] Platelet Count 281 160 - 400 X10*3/uL [facility] Mean Platelet Volume 10.9 9.4 - 12.4 fL [facility] Neutrophils Percent Auto 51.2 45 - 73 % [facility] Imm Gran Pct Auto 0.4 0.0 - 0.4 % [facility] Lymphocytes Percent Auto 34.8 20 - 40 % [facility] Monocytes Percent Auto 11.4(H) 2 - 11 % [facility] Eosinophils Percent Auto 1.1 0 - 4 % [facility] Basophils Percent Auto 1.1 0 - 2 % [facility] NRBC Pct Auto 0.0 0.0 - 0.2 /100WBC [facility] Neutrophils Absolute Auto 2.9 2.0 - 8.3 x10*3/uL [facility] Imm Gran Abs Auto 0.02 0.00 - 0.03 X10*3/uL [facility] Lymphocytes Absolute Auto 2.0 1.2 - 4.9 X10*3/uL [facility] Monocytes Absolute Auto 0.6 0.1 - 1.2 X10*3/uL [facility] Eosinophils Absolute Auto 0.1 0.0 - 0.4 X10*3/uL [facility] Basophils Absolute Auto 0.1 0.0 - 0.2 X10*3/uL [facility] NRBC Abs Auto 0.000 0.0 - 0.012 X10*3/uL [facility] Blood Venous blood specimen / Unknown 09/27/2024 2:12 PM EDT 09/27/2024 4:10 PM EDT Kasey Menjivar MD LAB BLOOD ORDERABLES Final Result Performing Organization Address City/State/[facility] Co de Phone Number [facility] [address] [place] [phone] * POCT Glucose (09/27/2024 1:10 PM EDT) Glucose Blood, POC 120 60 - 200 mg/dL Blood Capillary blood specimen / Unknown 09/27/2024 1:10 PM EDT Kasey Menjivar MD POINT OF CARE TEST EN TER/EDIT ORDERABLES Final Result * (ABNORMAL) POCT HGB A1C (09/27/2024 1:10 PM EDT) Hemoglobin A1C 6.6(A) 4.0 - 6.0 % QC Media Lot # [id number] Lot# Expiration Date Blood 09/27/2024 1:10 PM EDT Kasey Menjivar MD POINT OF CARE TEST EN TER/EDIT ORDERABLES Final Result documented in this encounter Visit Diagnoses Diagnosis Type 2 diabetes mellitus with hyperglycemia, without long-term current use of insulin ([facility]) Major depressive disorder with current active episode, unspecified depression episode severity, unspecified whether recurrent Essential hypertension Unspecified essential hypertension BRI (obstructive sleep apnea) Obstructive sleep apnea (adult) (pediatric) Chronic pain of both knees On combination antipsychotic drug therapy Erectile dysfunction, unspecified erectile dysfunction type documented in this encounter Additional Health Concerns Assessment Noted Time PHQ-9 Depression Total Score: 4 03/16/20 23 9:21 AM EDT documented as of this encounter Care Teams Sewing Machines Salesperson Relationship Specialty Start Date End Date Kasey Rodriguez MD [address] [place] [address] PCP - General Internal Medicine 02/23/23 Robert Parkinson 06/12/23 documented as of this encounter
--- OUTSIDE RECORDS SUMMARY | 2024-09-27 17:27 | XMS_ITS | Encounter Summary ---
Author Organization [employer] Address [address] [place] [address] Care Team Providers Care Business Development Professional Name Role Phone Kasey Rodriguez MD Primary Care Provide r Encounter Details Date Type Department Care Team (Latest Contact Info) Description 09/27/2024 Travel Social History Tobacco Use Types Packs/Day Years [...] Description 10/10/2024 9:30 AM EDT Medication Management [facility] [address] [place] [phone] 12/29/2024 9:15 AM EDT Office Visit [facility] [address] [place] [phone] Kasey Rodriguez MD [address] [place] [phone] 01/17/2025 1:00 PM EDT Office Visit [facility] AD[facility] [address] [place] [phone] Nupur Peraza documented as of this encounter Visit Diagnoses Not on filedocumented in this encounter Additional Health Concerns Assessment Noted Time PHQ-9 Depression Total Score: 4 03/16/20 23 9:21 AM EDT documented as of this encounter Care Teams Business Development Professional Relationship Specialty Start Date End Date Kasey Rodriguez MD [address] [place] [phone] PCP - General Internal Medicine 02/23/23 Robert Caring 06/12/23 documented as of this encounter
--- OUTSIDE RECORDS SUMMARY | 2024-09-27 17:27 | XMS_ITS ---
Author Organization [facility] Address [address] [place] [phone] Care Team Providers Care Photoengraving Proofer Name Role Phone Chandni Ospina Primary Care Provider Torin Arroyo [phone] REASON FOR VISIT for sooner apt Encounters Encounter Location Date Provider Diagnosis [address] [id number] 01/11/2024 Torin Jones Plan Of Treatment No Information Progress Notes * Ayush MITCHELLArnoldOB:1965 ( 59 yo M)Acc No.[id number]:01/11/2024 Progress Note Patient:?Milind MITCHELL Provider:Manolo Jones DPM :1965???Age:58 Y???Sex:Male Danyel e:01/11/2024 Address:[address] [place], [place] [id number] Pcp:Chandni Ospina Subjective: * Chief Complaints: * ???1. For sooner apt. * Medical History:? Objective: * Vitals:? Assessment: Plan: * Treatment: * Images: * The named appointment provid er may or may not be the originator of this progress note, and it is not deemed complete until electronically signed by the appointment provider. Sign off status: Pending * Provider:Manolo Jones DPM Date:? 024 Generated for Printi ng/Faxing/eTransmitting on:?09/27/2024 12:48 PM EDT
--- OUTSIDE RECORDS SUMMARY | 2024-09-27 17:27 | XMS_ITS | Encounter Summary ---
Author Organization [employer] Address [address] [facility] 7t [place] [address] Care Team Providers Care Photoresist Contact Printer Name Role Phone Kasey Rodriguez MD Primary Care Provide r Reason for Visit * Reason Comments Med Refill Encounter Details Date Type Department Care Team ([facility] Contact Info) Description 04/14/2024 Refill [facility] [address] [place], [place] [phone] Kasey Rodriguez MD [address] [place], [place] [phone] Social History Tobacco Use Types Packs/Day Years [...] with others, in a hotel, in a penitentiary, living outside on the street, on a [...] 10/10/2024 9:30 AM EDT Medication Management [facility] [address] [place] [phone] 12/29/2024 9:15 AM EDT Office Visit [facility] [address] [place] [address] Kasey Rodriguez MD [address] [place] [address] 01/17/2025 1:00 PM EDT Office Visit [facility] ADULT DENTAL [address] [place] [address] Nupur Peraza documented as of this encounter Visit Diagnoses Not on filedocumented in this encounter Additional Health Concerns Assessment Noted Time PHQ-9 Depression Total Score: 4 03/16/20 23 9:21 AM EDT documented as of this encounter Care Teams Photoresist Contact Printer Relationship Specialty Start Date End Date Kasey Rodriguez MD [address] [place] [phone] PCP - General Internal Medicine 02/23/23 Robert Parkinson 06/12/23 documented as of this encounter
--- OUTSIDE RECORDS SUMMARY | 2024-09-27 17:27 | XMS_ITS | Encounter Summary ---
Author Organization [employer] Address [address] [facility] 7t [place] [address] Care Team Providers Care Division Operations Manager Name Role Phone Kasey Rodriguez MD Primary Care Provide r Reason for Visit * Reason Onset Date Comments No Show 09/23/2024 Encounter Details Date Type Department Care Team ([facility] st Contact Info) Description 09/23/2024 Telephone [facility] [address] [place], [place] [phone] Elizabeth Rob MD [address] [place], [place] [phone] No Show Social History Tobacco Use Types Packs/Day Years [...] with others, in a hotel, in a prison, living outside on the street, on a [...] Telephone Encounter - Jennifer Quintero RN - 09/23/2024 2:02 PM EDT TC placed to pt., pt. Reports today's appt. Conflicted with another one he had, but agrees to r/s to 09/27/24 at 1:15pm with PCP * Telephone Encounter - Viridiana Martínez - 09/23/2024 1:30 PM EDT Pt no showed to appt on 09/23/24 hospital fu documented in this encounter Plan of Treatment Upcoming Encounters Date Type Department Care Team (Late st Contact Info) Description 10/10/2024 9:30 AM EDT Medication Management [facility] [address] [place] [address] 12/29/2024 9:15 AM EDT Office Visit [facility] [address] [place] [address] Kasey Rodriguez MD [address] [place] [address] 01/17/2025 1:00 PM EDT Office Visit [facility] ADULT DENTAL [address] [place] [address] Nupur Peraza documented as of this encounter Visit Diagnoses Not on filedocumented in this encounter Additional Health Concerns Assessment Noted Time PHQ-9 Depression Total Score: 4 03/16/20 23 9:21 AM EDT documented as of this encounter Care Teams Division Operations Manager Relationship Specialty Start Date End Date Kasey Rodriguez MD [address] [place] [address] PCP - General Internal Medicine 02/23/23 Robert Parkinson 06/12/23 documented as of this encounter
--- OUTSIDE RECORDS SUMMARY | 2024-09-27 17:28 | XMS_ITS | Encounter Summary ---
Author Organization [employer] Address [address] [facility] [address] 7[address] [place] [address] Care Team Providers Care Recovery Operator Name Role Phone Kasey Rodriguez MD Primary Care Provide r Reason for Visit * Reason Comments Med Refill Encounter Details Date Type Department Care Team ([facility] Contact Info) Description 01/03/2024 Refill [facility] [address] [place], [place] [phone] Kasey Rodriguez MD [address] [place], [place] [phone] Chronic obstructive pulmonary disease, unspecified COPD type [...] Description 10/10/2024 9:30 AM EDT Medication Management [facility] [address] [place] [phone] 12/29/2024 9:15 AM EDT Office Visit [facility] [address] [place] [phone] Kasey Rodriguez MD [address] [place] [address] 01/17/2025 1:00 PM EDT Office Visit [facility] ADULT DENTAL [address] [place] [address] Nupur Peraza documented as of this encounter Visit Diagnoses Diagnosis Chronic obstructive pulmonary disease, unspecified COPD type (CMS/HCC) documented in this encounter Additional Health Concerns Assessment Noted Time PHQ-9 Depression Total Score: 4 03/16/20 23 9:21 AM EDT documented as of this encounter Care Teams Recovery Operator Relationship Specialty Start Date End Date Kasey Rodriguez MD [address] [place] [phone] PCP - General Internal Medicine 02/23/23 Robert Parkinson 06/12/23 documented as of this encounter
--- OUTSIDE RECORDS SUMMARY | 2024-09-27 17:28 | XMS_ITS | Encounter Summary ---
Author Organization [employer] Address [address] [facility] [address] 7t [place] [address] Care Team Providers Care Machine Operator Hop Worker Name Role Phone Kasey Rodriguez MD Primary Care Provide r Reason for Visit * Reason Comments Med Refill Encounter Details Date Type Department Care Team ([facility] st Contact Info) Description 03/16/2024 Refill [facility] [address] [place], [place] [phone] Kasey Rodriguez MD [address] [place], [place] [phone] Essential hypertension Social History Tobacco Use Types Packs/Day Years [...] 10/10/2024 9:30 AM EDT Medication Management [facility] [address] [place] [address] 12/29/2024 9:15 AM EDT Office Visit [facility] [address] [place] [address] Kasey Rodriguez MD [address] [place] [address] 01/17/2025 1:00 PM EDT Office Visit [facility] ADULT DENTAL [address] [place] [address] Nupur Peraza documented as of this encounter Visit Diagnoses Diagnosis Essential hypertension Unspecified essential hypertension documented in this encounter Additional Health Concerns Assessment Noted Time PHQ-9 Depression Total Score: 4 03/16/20 23 9:21 AM EDT documented as of this encounter Care Teams Machine Operator Hop Worker Relationship Specialty Start Date End Date Kasey Rodriguez MD [address] [place] [phone] PCP - General Internal Medicine 02/23/23 Robert Parkinson 06/12/23 documented as of this encounter
[2024-09-27 18:03] LABS: Alanine Aminotransferase 55 U/L (0-40); Albumin Level 4.8 g/dL (3.5-5.0); Alkaline Phosphatase 57 U/L (39-117); Anion Gap 13 (12-20); Aspartate Amino Transferase 34 U/L (5-37); Bilirubin Total 0.5 mg/dL (0.0-1.0); Blood Urea Nitrogen 11 mg/dL (9-16); Calcium 10.2 mg/dL (8.4-10.2); Carbon Dioxide 26 mmol/L (22-29); Chloride 108 mmol/L (96-108); Cholesterol 99 mg/dL (<200); Estimated Glomerular Filt Rate > 60; Glucose Random 109 mg/dL (60-115); HDL Cholesterol 40 mg/dL (>40); LDL Cholesterol Calculated 43 mg/dL (<100); Potassium 4.2 mmol/L (3.3-5.1); Sodium 143 mmol/L (135-145); TSH reflex Free T4 0.88 uIU/mL (0.32-4.0); Total Protein 7.9 g/dL (6.5-8.0); Triglycerides 84 mg/dL (<150)
[2024-09-28 08:18] LABS: HIV AB/AG Nonreactive (Nonreactive); HIV Num 1 0.07 S/CO (0.00-0.99); ~HepC Num1 0.18 S/CO (0.00-0.79); ~Hepatitis C Antibody Nonreactive (Nonreactive)
== END 2024-09-27 14:10 | disposition home or self-care (01) ==
LOC: HO.HHCL 14:09
PROVIDERS: Visit Provider Internal Medicine
DX: F32.9 Major depressive disorder, single episode, unspecified (principal); E11.65 Type 2 diabetes mellitus with hyperglycemia
CPT/HCPCS: 36415; 80053; 80061; 82306; 84443; 85025; 86803; 87389

== ENCOUNTER → 2024-10-20 19:30 | Outpatient (REF) | payer OTHER, SELFPAY | LOC: HO.SL 19:30 | PROVIDERS: PCP Internal Medicine; Visit Provider Internal Medicine | DX: Z13.89 Encounter for screening for other disorder (principal) ==

== ENCOUNTER 2024-12-23 22:46 | Emergency (ER) | payer OTHER, SELFPAY ==
[2024-12-23 22:58] VITALS: BP 143/62; BP 144/80; PULSE 74; PULSE 76; RESP 16; TEMP 36.6; O2SAT 98; BMI 31.4
--- OUTSIDE RECORDS SUMMARY | 2024-12-24 02:00 | XMS_ITS | Encounter Summary ---
Author Organization [facility] [employer] Address [address] [facility] 7t [place] [address] Care Team Providers Care Supervisor Trust Accounts Name Role Phone Kasey Rodriguez MD Primary Care Provide r Reason for Visit * Reason Comments Med Refill Encounter Details Date Type Department Care Team ([facility] Contact Info) Description 04/14/[address] [facility] [address] [place], [place] [phone] Kasey Rodriguez MD 230 [place], [place] [phone] Social History Tobacco Use Types Packs/Day Years [...] with others, in a hotel, in a custodial, living outside on the street, on a [...] Care Team (Late st Contact Info) Description 12/29/2024 9:15 AM EDT Office Visit [facility] [address] [place] [address] Kasey Rodriguez MD [address] [place] [address] 01/17/2025 1:00 PM EDT Office Visit [facility] ADULT DENTAL [address] [place] [address] Nupur Peraza documented as of this encounter Visit Diagnoses Not on filedocumented in this encounter Additional Health Concerns Assessment Noted Time PHQ-9 Depression Total Score: 4 03/16/20 23 9:21 AM EDT documented as of this encounter Care Teams Supervisor Trust Accounts Relationship Specialty Start Date End Date Kasey Rodriguez MD [address] [place] [address] PCP - General Internal Medicine 02/23/23 Robert Parkinson 06/12/23 documented as of this encounter
--- NOTE | 2024-12-24 02:01 | ED.GENADULT ---
HPI - General Adult General Chief complaint: General Medical Stated complaint: Pins & needles feeling on top of head Time Seen by Provider: 12/24/24 01:51 Source: patient Mode of arrival: ambulatory Limitations: no limitations History of Present Illness ED Provider: Dr. Mary Christensen HPI narrative: patient comes to the emergency room complaining of 1 month and 2 days of itching around his head neck shoulders arms and unable to sleep. Patient denies any actual rash. Related Data Home Medications ?Medication ?Instructions ?Recorded ?Confirmed albuterol sulfate 90 mcg/actuation 2 puff inhalation Q4H PRN 06/22/20 06/18/23 aerosol inhaler (Ventolin HFA) Shortness Of Breath omeprazole 20 mg capsule,delayed 20 mg PO BID@0630,1630 06/22/20 06/18/23 release tamsulosin 0.4 mg capsule (Flomax) 0.4 mg PO BEDTIME 06/22/20 06/18/23 clonazepam 2 mg tablet 2 mg PO BEDTIME 03/26/23 06/18/23 dorzolamide 22.3 mg-timolol 6.8 1 drp ophthalmic (eye) BID 03/26/23 06/18/23 mg/mL eye drops duloxetine 60 mg capsule,delayed 60 mg PO DAILY 03/26/23 06/18/23 release lisinopril 10 mg tablet 10 mg PO DAILY 03/26/23 06/18/23 loratadine 10 mg tablet 10 mg PO DAILY 03/26/23 06/18/23 trazodone 150 mg tablet 150 mg PO BEDTIME PRN insomnia 03/26/23 06/18/23 ascorbic acid (vitamin C) 1,000 mg 1,000 mg PO DAILY 06/05/23 06/18/23 tablet (Vitamin C) aspirin 81 mg tablet,delayed 81 mg PO DAILY 06/05/23 06/18/23 release cholecalciferol (vitamin D3) 50 50 mcg PO DAILY 06/05/23 06/18/23 mcg (2,000 unit) capsule (Vitamin D3) fluticasone 250 mcg-salmeterol 50 1 ea inhalation BID 06/05/23 06/18/23 mcg/dose blistr powdr for inhalation (Wixela Inhub) fluticasone propionate 50 2 spray intranasal DAILY PRN 06/05/23 06/18/23 mcg/actuation nasal Allergic Symptoms spray,suspension montelukast 10 mg tablet 10 mg PO BEDTIME 06/05/23 06/18/23 ropinirole 0.5 mg tablet 0.5 mg PO BEDTIME 06/05/23 06/18/23 rosuvastatin 40 mg tablet 40 mg PO BEDTIME 06/05/23 06/18/23 verapamil 100 mg capsule 24hr 100 mg PO BEDTIME 06/05/23 06/18/[address],ext.release vitamin A 2,400 mcg capsule 2,400 mcg PO DAILY 06/05/23 06/18/23 vitamin E 268 mg (400 unit) capsule 268 mg PO DAILY 06/05/23 06/18/23 zinc acetate 50 mg (zinc) capsule 50 mg PO DAILY 06/05/23 06/18/23 Previous Rx's ?Medication ?Instructions ?Recorded glipizide 5 mg tablet 2.5 mg (1/2 x 5 mg) PO DAILY 30 06/09/23 days #15 tabs diphenhydramine HCl 25 mg tablet 25 mg PO BEDTIME PRN itching #14 12/24/24 (Benadryl Allergy) tabs hydroxyzine HCl 25 mg tablet 25 mg PO BID PRN itching #14 tabs 12/24/24 Allergies Allergy/AdvReac Type Severity Reaction Status Date / Time olanzapine (From ZYPREXA) Allergy Unknown UNKNOWN Verified 12/23/24 23:02 mirtazapine (From REMERON) AdvReac Unknown PAIN IN Verified 12/23/24 23:02 LEGS sertraline (From ZOLOFT) AdvReac Unknown ANXIETY Verified 12/23/24 23:02 gabapentin AdvReac Unknown Verified 12/23/24 23:02 metformin AdvReac Unknown Verified 12/23/24 23:02 Review of Systems Review of Systems: Constitutional : No Weight loss, No Fever, No Chills, No Night Sweats, No Fatigue, No Malaise ENT/Mouth : No Hearing loss, No Ear Pain, No Nasal Congestion, No Sinus Pain, No Hoarseness, No sore throat, No Rhinorrhea, No Swallowing Difficulty Eyes: No Eye Pain, No Swelling, No Redness, No Foreign Body, No Discharge, No Vision Changes Cardiovascular : No Chest Pain, No SOB, No Dyspnea on Exertion, No Orthopnea, No Edema, No Palpitations Respiratory : No Cough, No Sputum, No Wheezing, No Smoke Exposure, No Dyspnea Gastrointestinal : No Nausea, No Vomiting, No Diarrhea, No Constipation, No abdominal Pain, No Hematochezia, No Melena Genitourinary : no irregular bleeding, No Dysuria, No Urinary Frequency, No Hematuria, No Urinary Incontinence, No Urgency, No Flank Pain, No Urinary Flow Changes, No Hesitancy Musculoskeletal : No joint pain, No Myalgias, No Joint Swelling Skin : Complaining of itchy skin for 1 month and 2 days Neuro : No Weakness, No Numbness, No Paresthesias, No Loss of Consciousness, No Dizziness, No Headache Psych : No Anxiety/Panic, No Depression, No SI/HI/AH/VH, No Social Issues, Heme/Lymph: No Bruising, No Bleeding,No Lymphadenopathy Endocrine : No Polyuria, No Polydipsia, No Temperature Intolerance [facility] Past Medical History Medical History GERD (gastroesophageal reflux disease) Asthma Anxiety Hyperlipidemia Hypertension BRI (obstructive sleep apnea) Alcohol abuse Suicidal ideation Diverticulosis Surgical History History of laparoscopic cholecystectomy Social History Social History Household Members: None Housing: Apartment Do you presently have visiting nurse or other home services: No Alcohol intake: current Alcohol intake frequency: holidays/special occasions only Alcohol type: beer Comment: sleeping Patient Tobacco Use Status: Never used Tobacco Advance Directives: No Advance Directives Information Provided: Yes service: No Current occupational status: disabled Sexual orientation: Straight/Heterosexual Physical Exam ED Vital Signs: Vital Signs - 24 hr 12/23/24 22:58 Temperature 97.9 F Pulse Rate 74 Respiratory Rate 16 Blood Pressure 143/62 H Pulse Oximetry 98 Oxygen Delivery Method Room Air BMI result Body Mass Index 31.4 Const Other: Appearance: Alert. Oriented X3. No acute distress. Eyes: Pupils equal, round and reactive to light. ENT: Pharynx normal. Neck: Normal inspection. Neck supple. No lymph nodes noted. No crepitus CVS: Normal heart rate and rhythm. Pulses normal. Normal S1 and S2 Respiratory: No respiratory distress. Breath sounds normal. No Wheezing. No rales Abdomen: Soft and nontender. No rigidity. No distention. Skin: Skin warm and dry. Normal skin color. Normal skin turgor. Extremities: No lower extremity edema. No Lacerations. No Rash Neuro: Oriented X 3. No motor deficit. No sensory deficit. Moving all extremities. No slurred speech. CN 2 through 12 grossly intact Psych: calm, cooperative, normal affect Medical Decision Making Medical Decision Making MDM Narrative: I discussed the patient's physical exam with the. No obvious rash. Patient asked to try hydroxyzine during the day p.r.n.. Benadryl PRN at bedtime. Discharge Plan Discharge Clinical Impression: Itchy skin Patient Disposition: Home, Self-Care Instructions: Itchy Skin (ED) Additional Instructions: Please follow-up with your primary care physician tomorrow. If you have any worsening or new symptoms, please return to the emergency room or call 911 Prescriptions: New hydroxyzine HCl 25 mg tablet 25 mg PO BID PRN (Reason: itching) Qty: 14 0RF diphenhydramine HCl [Benadryl Allergy] 25 mg tablet 25 mg PO BEDTIME PRN (Reason: itching) Qty: 14 0RF No Action tamsulosin [Flomax] 0.4 mg Capsule 0.4 mg PO BEDTIME omeprazole 20 mg Capsule,Delayed Release(Dr/Ec) 20 mg PO BID@0630,1630 albuterol sulfate [Ventolin HFA] 90 mcg/actuation Hfa Aerosol Inhaler 2 puff INHALATION Q4H PRN (Reason: Shortness Of Breath) trazodone 150 mg tablet 150 mg PO BEDTIME PRN (Reason: insomnia) clonazepam 2 mg tablet 2 mg PO BEDTIME duloxetine 60 mg capsule,delayed release(DR/EC) 60 mg PO DAILY lisinopril 10 mg tablet 10 mg PO DAILY dorzolamide-timolol 22.3-6.8 mg/mL drops 1 drp ophthalmic (eye) BID loratadine 10 mg tablet 10 mg PO DAILY fluticasone propion-salmeterol [Wixela Inhub] 250-50 mcg/dose blister with device 1 ea inhalation BID ascorbic acid (vitamin C) [Vitamin C] 1,000 mg Tablet 1,000 mg PO DAILY vitamin A 2,400 mcg Capsule 2,400 mcg PO DAILY zinc acetate 50 mg (zinc) Capsule 50 mg PO DAILY aspirin 81 mg tablet,delayed release (DR/EC) 81 mg PO DAILY ropinirole 0.5 mg tablet 0.5 mg PO BEDTIME verapamil 100 mg capsule, [address] 100 mg PO BEDTIME montelukast 10 mg tablet 10 mg PO BEDTIME fluticasone propionate 50 mcg/actuation spray,suspension 2 spray intranasal DAILY PRN (Reason: Allergic Symptoms) vitamin E 268 mg (400 unit) Capsule 268 mg PO DAILY rosuvastatin 40 mg tablet 40 mg PO BEDTIME cholecalciferol (vitamin D3) [Vitamin D3] 50 mcg (2,000 unit) capsule 50 mcg PO DAILY glipizide 5 mg Tablet 2.5 mg PO DAILY 30 Days Qty: 15 0RF Print Language: Estonian
[2024-12-24 02:36] VITALS: BP 132/79; PULSE 83; RESP 16; TEMP 36.8; O2SAT 97
--- OUTSIDE RECORDS SUMMARY | 2025-01-30 20:00 | XMS_ITS | Clinical Summary ---
Author Organization Unknown Care Team Providers Care Reviewer Sales Name Role Phone HOMAR BALLARD MD, SERJIO Unavailable Clover SALCIDO RN, ARIANNA Unavailable Unavailable STEPHEN ENCINAS, DAVID Unavailable Unavailable Payers Payer Name Policy Type Policy Number Effective Date Expira tion Date [facility] [id number] [place] [id number] MEDICARE - [facility] - [facility] [id number] Problems Condition Name Condition Details Condition Category [...] mg/mL eye drops 2022-06 00:00: 00 Yes [id number] 1 drops TWICE DAILY 1 drops TWICE DAILY (route: ophthalmic (eye)) Med Classific ation: Ophthalmi c Agents Ventolin HFA 90 mcg/actuati on aerosol inhaler 2022-06 00:00: 00 Yes [id number] Unavailable 2 puff EVERY 4 HOURS 2 puff EVERY 4 HOURS (route: inhalation ) Med Classific ation: Respirato ry Therapy Agents lisinopril 10 mg tablet 2022-06 00:00: 00 Yes [id number] Unavailable 10 mg EVERY DAY 10 mg EVERY DAY (route: oral) Med Classific ation: Cardiovas cular Therapy Agents verapamil ER (PM) 100 mg capsule 24hr pellet CT,ext.rele ase 2022-06 00:00: 00 09-13 23:59 :00 No [id number] 100 mg AT BEDTIME 100 mg AT BEDTIME (route: oral) Med Classific ation: Cardiovas cular Therapy Agents clonazepam 2 mg tablet 2022-06 00:00: 00 Yes [id number] 2 mg AT BEDTIME 2 mg AT BEDTIME (route: oral) Med Classific ation: Central Nervous System Agents duloxetine 60 mg capsule,del ayed release 2022-06 00:00: 00 Yes [id number] 60 mg EVERY AM 60 mg EVERY AM (route: oral) Med Classific ation: Central Nervous System Agents trazodone 150 mg tablet 2022-06 00:00: 00 Yes [id number] 150 mg AT BEDTIME NEEDED 150 mg AT BEDTIME NEEDED (route: oral) Med Classific ation: Central Nervous System Agents aspirin 81 mg tablet,yaa yed release 2022-06 00:00: 00 Yes [id number] 81 mg EVERY AM 81 mg EVERY AM (route: oral) Med Classific ation: Hematolog ical Agents Flomax 0.4 mg capsule 2022-06 00:00: 00 Yes [id number] 0.4 mg BEDTIME 0.4 mg BEDTIME (route: oral) Med Classific ation: Genitouri nary Therapy Galzin 50 mg (zinc) capsule 2022-06 00:00: 00 09-13 23:59 :00 No [id number] 50 mg DAILY 50 mg DAILY (route: oral) Med Classific ation: Antidotes and other Reversal Agents glipizide 5 mg tablet 2022-06 00:00: 00 Yes [id number] 5 mg EVERY AM 5 mg EVER Y AM (route: oral) Med Classific ation: Endocrine loratadine 10 mg tablet 2022-06 00:00: 00 Yes [id number] 10 mg EVERY AM 10 mg EVERY AM (route: oral) Med Classific ation: Respirato ry Therapy Agents montelukast 10 mg tablet 2022-06 00:00: 00 09-13 23:59 :00 No [id number] 10 mg BEDTIME 10 mg BEDTIME (route: oral) Med Classific ation: Respirato ry Therapy Agents omeprazole 20 mg tablet,yaa yed release 2022-06 00:00: 00 09-13 23:59 :00 No [id number] 20 mg 2 TIMES DAILY 20 mg 2 TIMES DAILY (route: oral) Med Classific ation: Gastroint estinal Therapy Agents ropinirole 0.5 mg tablet 2022-06 00:00: 00 09-13 23:59 :00 No [id number] 0.5 mg BEDTIME 0.5 mg BEDTIME (route: oral) Med Classific ation: Central Nervous System Agents rosuvastati n 40 mg tablet 2022-06 00:00: 00 Yes [id number] 40 mg BEDTIME 40 mg BEDTIME (route: oral) Med Classific ation: Cardiovas cular Therapy Agents vitamin A 2,400 mcg capsule 2022-06 00:00: 00 09-13 23:59 :00 No [id number] 2400 mcg DAILY 2400 mcg DAILY (route: oral) Med Classific ation: Electroly te Balance-N utritiona l Products Vitamin C 1,000 mg tablet 2022-06 00:00: 00 09-13 23:59 :00 No [id number] 1000 mg EVERY AM 1000 mg EVERY AM (route: oral) Med Classific ation: Electroly te Balance-N utritiona l Products Vitamin D3 50 mcg (2,000 unit) capsule 2022-06 00:00: 00 09-13 23:59 :00 No [id number] 50 mcg EVERY AM 50 mcg EVERY AM (route: oral) Med Classific ation: Electroly te Balance-N utritiona l Products vitamin E 268 mg (400 unit) capsule 2022-06 00:00: 00 09-13 23:59 :00 No [id number] 268 mg DAILY 268 mg DAILY (route: oral) Med Classific ation: Electroly te Balance-N utritiona l Products quetiapine 50 mg tablet 09-13 00:00: 00 Yes [id number] 50 mg BEDTIME 50 mg BEDTIME (route: oral) Med Classific ation: Central Nervous System Agents Vital Signs Vital Name Observation Time Observation Value Commen ts Temperature 2024-12-23 17:48:00.000 98.6 [degF] Temperature 2024-12-22 [...] [degF] Temperature 2024-12-05 10:14:00.000 98.6 [degF] Pulse 2024-12-23 17:48:00.000 88 /min Pulse 2024-12-22 [...] 82 /min Pulse 2024-12-05 10:14:00.000 82 /min Respirations 2024-12-23 17:48:00.000 20 /min Respirations [...] 2024-12-05 10:14:00.000 20 /min Systolic Blood Pressure 2024-12-23 17:48:00.000 140 mm [...] 10:14:00.000 129 mm [Hg] Diastolic Blood Pressure 2024-12-23 17:48:00.000 [...] AWARENESS FOR SAFETY AND WILL NOTIFY CLINICAL TOOLING SUPERVISOR AND PHYSICIAN/PROVIDER WITH ANY CHANGE IN CONDITION. [code = SKILLED NURSE WILL MAINTAIN SITUATIONAL AWARENESS FOR SAFETY AND WILL NOTIFY CLINICAL TOOLING SUPERVISOR AND PHYSICIAN/PROVIDER WITH ANY CHANGE IN CONDITION.] [...] CARE WILL BE ESTABLISHED THAT MEETS PATIENT'S [facility] NEEDS AND INCLUDES PATIENT GOAL FOR HOME [...] End Date/Time Encounter Type Admission Type Attending [facility] Care Department Encounter ID Discharge Date Discharge Status Discharge Condition Discharge Reason Percent Goals Met 2024-12-03 00:00:00 2025-01-31 00:00:00 Outpatient RECERTIFIC DAVID GENTILE [facility] [id number] .00
== END 2024-12-24 02:37 | disposition home or self-care (01) ==
PROVIDERS: Emergency Provider Emergency Medicine
DX: L29.9 Pruritus, unspecified (principal)
CPT/HCPCS: 99283; 99284

== ENCOUNTER 2024-12-29 10:03 | Outpatient (REF) | payer OTHER, SELFPAY ==
--- OUTSIDE RECORDS SUMMARY | 2024-01-11 05:00 | XMS_ITS ---
Author Organization [facility] Address [address] [place] [phone] Care Team Providers Care Improvement Lead Name Role Phone Chandni Ospina Primary Care Provider Torin Arroyo [phone] REASON FOR VISIT for sooner apt Encounters Encounter Location Date Provider Diagnosis [address] [address] 01/11/2024 Torin Jones Plan Of Treatment No Information Progress Notes * Claribel MITCHELLOB:1965 ( 59 yo M)Acc No.[id number]:01/11/2024 Progress Note Patient: Germán GANDHImael Provider: Georgina Jones DPM :1965 A ge:58 Y S ex:Male Date:01/11/2024 Address:[address] [place], [place] [phone] Pcp:Chandni Ospina Subjective: * Chief Complaints: * [...] Jones DPM Date: 01/11/2024 Generated for Autumni shay/Faamandag/eTransmitting on: 12/29/2024 09:02 AM EDT
--- OUTSIDE RECORDS SUMMARY | 2024-12-29 10:29 | XMS_ITS | Encounter Summary ---
Author Organization [employer] Address [address] [facility] 7t [place] [address] Care Team Providers Care Carton Stenciler Name Role Phone Kasey Rodriguez MD Primary Care Provide r Reason for Visit * Reason Comments Med Refill Encounter Details Date Type Department Care Team ([facility] Contact Info) Description 04/14/2024 Refill [facility] MED[facility]INE [address] [place], [place] [phone] Kasey Rodriguez MD [address] [place], [place] [phone] Social History Tobacco Use Types Packs/Day Years [...] Care Team (Late st Contact Info) Description 01/17/2025 1:00 PM EDT Office Visit [facility] ADULT DENTAL [address] [place] [address] Nupur Peraza documented as of this encounter Visit Diagnoses Not on filedocumented in this encounter Additional Health Concerns Assessment Noted Time PHQ-9 Depression Total Score: 4 03/16/20 23 9:21 AM EDT documented as of this encounter Care Teams Carton Stenciler Relationship Specialty Start Date End Date Kasey Rodriguez MD [address] [place] [address] PCP - General Internal Medicine 02/23/23 Robert Parkinson 06/12/23 documented as of this encounter
[2024-12-29 11:38] LABS: Alanine Aminotransferase 58 U/L (0-40); Albumin Level 4.8 g/dL (3.5-5.0); Alkaline Phosphatase 58 U/L (39-117); Anion Gap 11 (12-20); Aspartate Amino Transferase 39 U/L (5-37); Blood Urea Nitrogen 11 mg/dL (9-16); Calcium 9.4 mg/dL (8.4-10.2); Carbon Dioxide 26 mmol/L (22-29); Chloride 106 mmol/L (96-108); Estimated Glomerular Filt Rate > 60; Potassium 4.4 mmol/L (3.3-5.1); Sodium 139 mmol/L (135-145); Total Protein 7.7 g/dL (6.5-8.0)
[2024-12-29 12:05] LABS: Microalbum/Creatinine Ratio Ur 10.6 ug/mg cr (<30)
--- OUTSIDE RECORDS SUMMARY | 2025-01-30 20:00 | XMS_ITS | Clinical Summary ---
Author Organization Unknown Care Team Providers Care Termite Control Representative Name Role Phone HOMAR BALLARD MD, SERJIO Unavailable Clover SALCIDO RN, ARIANNA Unavailable Unavailable STEPHEN ENCINAS, DAVID Unavailable Unavailable Payers Payer Name Policy Type Policy Number Effective Date Expira tion Date [facility] [id number] [place] [id number] MEDICARE - [facility]/OR - [facility] [id number] Problems Condition Name Condition Details Condition Category [...] mg/mL eye drops 2022-06 00:00: 00 Yes [id number] 1 drops TWICE DAILY 1 drops TWICE DAILY (route: ophthalmic (eye)) Med Classific ation: Ophthalmi c Agents Ventolin HFA 90 mcg/actuati on aerosol inhaler 2022-06 00:00: 00 Yes [id number] Unavailable 2 puff EVERY 4 HOURS 2 puff EVERY 4 HOURS (route: inhalation ) Med Classific ation: Respirato ry Therapy Agents lisinopril 10 mg tablet 2022-06 00:00: 00 Yes [id number] Unavailable 10 mg EVERY DAY 10 mg EVERY DAY (route: oral) Med Classific ation: Cardiovas cular Therapy Agents verapamil ER (PM) 100 mg capsule 24hr pellet CT,ext.rele ase 2022-06 00:00: 00 09-13 23:59 :00 No [id number] 100 mg AT BEDTIME 100 mg AT BEDTIME (route: oral) Med Classific ation: Cardiovas cular Therapy Agents clonazepam 2 mg tablet 2022-06 00:00: 00 Yes [id number] 2 mg AT BEDTIME 2 mg AT BEDTIME (route: oral) Med Classific ation: Central Nervous System Agents duloxetine 60 mg capsule,del ayed release 2022-06 00:00: 00 Yes [id number] 60 mg EVERY AM 60 mg EVERY AM (route: oral) Med Classific ation: Central Nervous System Agents trazodone 150 mg tablet 2022-06 00:00: 00 Yes [id number] 150 mg AT BEDTIME NEEDED 150 mg AT BEDTIME NEEDED (route: oral) Med Classific ation: Central Nervous System Agents aspirin 81 mg tablet,yaa yed release 2022-06 00:00: 00 Yes [id number] 81 mg EVERY AM 81 mg EVERY AM (route: oral) Med Classific ation: Hematolog ical Agents Flomax 0.4 mg capsule 2022-06 00:00: 00 Yes [id number] 0.4 mg BEDTIME 0.4 mg BEDTIME (route: oral) Med Classific ation: Genitouri nary Therapy Galzin 50 mg (zinc) capsule 2022-06 00:00: 00 09-13 23:59 :00 No [id number] 50 mg DAILY 50 mg DAILY (route: oral) Med Classific ation: Antidotes and other Reversal Agents glipizide 5 mg tablet 2022-06 00:00: 00 Yes [id number] 5 mg EVERY AM 5 mg EVER Y AM (route: oral) Med Classific ation: Endocrine loratadine 10 mg tablet 2022-06 00:00: 00 Yes [id number] 10 mg EVERY AM 10 mg EVERY AM (route: oral) Med Classific ation: Respirato ry Therapy Agents montelukast 10 mg tablet 2022-06 00:00: 00 09-13 23:59 :00 No [id number] 10 mg BEDTIME 10 mg BEDTIME (route: oral) Med Classific ation: Respirato ry Therapy Agents omeprazole 20 mg tablet,yaa yed release 2022-06 00:00: 00 09-13 23:59 :00 No [id number] 20 mg 2 TIMES DAILY 20 mg 2 TIMES DAILY (route: oral) Med Classific ation: Gastroint estinal Therapy Agents ropinirole 0.5 mg tablet 2022-06 00:00: 00 09-13 23:59 :00 No [id number] 0.5 mg BEDTIME 0.5 mg BEDTIME (route: oral) Med Classific ation: Central Nervous System Agents rosuvastati n 40 mg tablet 2022-06 00:00: 00 Yes [id number] 40 mg BEDTIME 40 mg BEDTIME (route: oral) Med Classific ation: Cardiovas cular Therapy Agents vitamin A 2,400 mcg capsule 2022-06 00:00: 00 09-13 23:59 :00 No [id number] 2400 mcg DAILY 2400 mcg DAILY (route: oral) Med Classific ation: Electroly te Balance-N utritiona l Products Vitamin C 1,000 mg tablet 2022-06 00:00: 00 09-13 23:59 :00 No [id number] 1000 mg EVERY AM 1000 mg EVERY AM (route: oral) Med Classific ation: Electroly te Balance-N utritiona l Products Vitamin D3 50 mcg (2,000 unit) capsule 2022-06 00:00: 00 09-13 23:59 :00 No [id number] 50 mcg EVERY AM 50 mcg EVERY AM (route: oral) Med Classific ation: Electroly te Balance-N utritiona l Products vitamin E 268 mg (400 unit) capsule 2022-06 00:00: 00 09-13 23:59 :00 No [id number] 268 mg DAILY 268 mg DAILY (route: oral) Med Classific ation: Electroly te Balance-N utritiona l Products quetiapine 50 mg tablet 09-13 00:00: 00 Yes [id number] 50 mg BEDTIME 50 mg BEDTIME (route: oral) Med Classific ation: Central Nervous System Agents Vital Signs Vital Name Observation Time Observation Value Commen ts Temperature 2024-12-28 11:32:00.000 98.6 [degF] Temperature 2024-12-27 21:19:00.000 98.6 [degF] Temperature 2024-12-26 11:31:00.000 98.6 [degF] Temperature 2024-12-23 17:48:00.000 98.6 [degF] Temperature 2024-12-22 12:40:00.000 98.6 [degF] Temperature 2024-12-21 13:20:00.000 98 [degF] Temperature 2024-12-20 13:53:00.000 98.6 [degF] Temperature 2024-12-19 09:11:00.000 98.6 [degF] Temperature 2024-12-15 13:13:00.000 98.6 [degF] Temperature 2024-12-14 19:49:00.000 98.6 [degF] Temperature 2024-12-13 10:30:00.000 98.6 [degF] Temperature 2024-12-12 15:51:00.000 98.7 [degF] Temperature 2024-12-09 14:36:00.000 98.6 [degF] Temperature 2024-12-08 10:18:00.000 98.6 [degF] Temperature 2024-12-07 09:54:00.000 98.6 [degF] Temperature 2024-12-06 08:27:00.000 98.6 [degF] Temperature 2024-12-05 10:14:00.000 98.6 [degF] Pulse 2024-12-28 11:32:00.000 82 /min Pulse 2024-12-27 21:19:00.000 82 /min Pulse 2024-12-26 11:31:00.000 82 /min Pulse 2024-12-23 17:48:00.000 88 /min Pulse 2024-12-22 12:40:00.000 82 /min Pulse 2024-12-21 13:20:00.000 82 /min Pulse 2024-12-20 13:53:00.000 72 /min Pulse 2024-12-19 09:11:00.000 87 /min Pulse 2024-12-15 13:13:00.000 82 /min Pulse 2024-12-14 19:49:00.000 82 /min Pulse 2024-12-13 10:30:00.000 82 /min Pulse 2024-12-12 15:51:00.000 82 /min Pulse 2024-12-09 14:36:00.000 82 /min Pulse 2024-12-08 10:18:00.000 85 /min Pulse 2024-12-07 09:54:00.000 82 /min Pulse 2024-12-06 08:27:00.000 82 /min Pulse 2024-12-05 10:14:00.000 82 /min O2 Saturation (%) 2024-12-28 11:33:00.000 98 % Respirations 2024-12-28 11:32:00.000 20 /min Respirations 2024-12-27 21:19:00.000 20 /min Respirations 2024-12-26 11:31:00.000 20 /min Respirations 2024-12-23 17:48:00.000 20 /min Respirations 2024-12-22 12:40:00.000 20 /min Respirations 2024-12-21 13:20:00.000 20 /min Respirations 2024-12-20 13:53:00.000 20 /min Respirations 2024-12-19 09:11:00.000 20 /min Respirations 2024-12-15 13:13:00.000 20 /min Respirations 2024-12-14 19:49:00.000 20 /min Respirations 2024-12-13 10:30:00.000 20 /min Respirations 2024-12-12 15:51:00.000 20 /min Respirations 2024-12-09 14:36:00.000 20 /min Respirations 2024-12-08 10:18:00.000 20 /min Respirations 2024-12-07 09:54:00.000 20 /min Respirations 2024-12-06 08:27:00.000 20 /min Respirations 2024-12-05 10:14:00.000 20 /min Systolic Blood Pressure 2024-12-28 11:32:00.000 132 mm [Hg] Systolic Blood Pressure 2024-12-27 21:19:00.000 142 mm [Hg] Systolic Blood Pressure 2024-12-26 11:31:00.000 132 mm [Hg] Systolic Blood Pressure 2024-12-23 17:48:00.000 140 mm [Hg] Systolic Blood Pressure 2024-12-22 12:40:00.000 130 mm [Hg] Systolic Blood Pressure 2024-12-21 13:20:00.000 132 mm [Hg] Systolic Blood Pressure 2024-12-20 13:53:00.000 118 mm [Hg] Systolic Blood Pressure 2024-12-19 09:11:00.000 137 mm [Hg] Systolic Blood Pressure 2024-12-15 13:13:00.000 129 mm [Hg] Systolic Blood Pressure 2024-12-14 19:49:00.000 142 mm [Hg] Systolic Blood Pressure 2024-12-13 10:30:00.000 142 mm [Hg] Systolic Blood Pressure 2024-12-12 15:51:00.000 139 mm [Hg] Systolic Blood Pressure 2024-12-09 14:36:00.000 142 mm [Hg] Systolic Blood Pressure 2024-12-08 10:18:00.000 138 mm [Hg] Systolic Blood Pressure 2024-12-07 09:54:00.000 142 mm [Hg] Systolic Blood Pressure 2024-12-06 08:27:00.000 135 mm [Hg] Systolic Blood Pressure 2024-12-05 10:14:00.000 129 mm [Hg] Diastolic Blood Pressure 2024-12-28 11:32:00.000 76 mm [Hg] Diastolic Blood Pressure 2024-12-27 21:19:00.000 88 mm [Hg] Diastolic Blood Pressure 2024-12-26 11:31:00.000 78 mm [Hg] Diastolic Blood Pressure 2024-12-23 17:48:00.000 88 mm [Hg] Diastolic Blood Pressure 2024-12-22 12:40:00.000 88 mm [Hg] Diastolic Blood Pressure 2024-12-21 13:20:00.000 79 mm [Hg] Diastolic Blood Pressure 2024-12-20 13:53:00.000 70 mm [Hg] Diastolic Blood Pressure 2024-12-19 09:11:00.000 82 mm [Hg] Diastolic Blood Pressure 2024-12-15 13:13:00.000 72 mm [Hg] Diastolic Blood Pressure 2024-12-14 19:49:00.000 78 mm [Hg] Diastolic Blood Pressure 2024-12-13 10:30:00.000 78 mm [Hg] Diastolic Blood Pressure 2024-12-12 15:51:00.000 81 mm [Hg] Diastolic Blood Pressure 2024-12-09 14:36:00.000 72 mm [Hg] Diastolic Blood Pressure 2024-12-08 10:18:00.000 87 mm [Hg] Diastolic Blood Pressure 2024-12-07 09:54:00.000 78 mm [Hg] Diastolic Blood Pressure 2024-12-06 08:27:00.000 72 mm [Hg] Diastolic Blood Pressure 2024-12-05 10:14:00.000 82 mm [Hg] Plan of Treatment Planned Activity [...] AND FALL PREVENTION STRATEGIES.] Future Scheduled Test SKILLED NU RSE TO O/A OF PATIENTS MENTAL/BEHAVIORAL STATUS, ASSESS VITAL SIGNS EVERY VISIT ALLOW 2 PRNS FOR MEDICATION MANAGEMENT. [code = SKILLED NURSE TO O/A OF PATIENTS MENTAL/BEHAVIORAL STATUS, ASSESS VITAL SIGNS EVERY VISIT ALLOW 2 PRNS FOR MEDICATION MANAGEMENT.] Future Scheduled Test SKILLED NU RSE FOR [...] SAFETY.] Future Scheduled Test SKILLED NU RSE MAY PICKUP AND TRANSPORT MEDICATIONS [code = SKILLED NURSE MAY PICKUP AND TRANSPORT MEDICATIONS] Future Scheduled Test SKILLED NU RSE FOR O/A AND TEACHING OF ENDOCRINE SYSTEM TO IDENTIFY CHANGES ASSOCIATED WITH EXACERBATION FOR EARLY INTERVENTION OF COMPLICATIONS. [code = SKILLED NURSE FOR O/A AND TEACHING OF ENDOCRINE SYSTEM TO IDENTIFY CHANGES ASSOCIATED WITH EXACERBATION FOR EARLY INTERVENTION OF COMPLICATIONS.] Future Scheduled Test SKILLED NU RSE FOR O/A AND TEACHING OF DIABETIC MANAGEMENT INCLUDING BLOOD SUGAR MONITORING/USE OF GLUCOMETER, DIABETIC DIET, LOWER EXTREMITY SKIN INSPECTION, PROPER SKIN/FOOT CARE, AND SIGNS AND SYMPTOMS HYPO/HYPERGLYCEMIA TO REPORT. [code = SKILLED NURSE FOR O/A AND TEACHING OF DIABETIC MANAGEMENT INCLUDING BLOOD SUGAR MONITORING/USE OF GLUCOMETER, DIABETIC DIET, LOWER EXTREMITY SKIN INSPECTION, PROPER SKIN/FOOT CARE, AND SIGNS AND SYMPTOMS HYPO/HYPERGLYCEMIA TO REPORT.] Future Scheduled Test SKILLED NU RSE TO PERFORM AND RECORD BLOOD SUGAR READING , AND PRN FOR SIGNS AND SYMPTOMS OF HYPO/HYPERGLYCEMIA. [code = SKILLED NURSE TO PERFORM AND RECORD BLOOD SUGAR READING , AND PRN FOR SIGNS AND SYMPTOMS OF HYPO/HYPERGLYCEMIA.] Future Scheduled Test SKILLED NU RSE FOR O/A OF ALTERED THOUGHT PROCESS AND/OR DISRUPTION IN COGNITIVE OPERATIONS AND ACTIVITIES [code = SKILLED NURSE FOR O/A OF ALTERED THOUGHT PROCESS AND/OR DISRUPTION IN COGNITIVE OPERATIONS AND ACTIVITIES ] Future Scheduled Test SKILLED NU RSE TO REVIEW PATIENT MEDICATIONS. INSTRUCT PATIENT/CAREGIVER ON MONITORING OF EFFECTIVENESS, ADVERSE DRUG REACTIONS, SIDE EFFECTS OF ALL MEDICATIONS (PRESCRIPTION/-OTC), AND HOW AND WHEN TO REPORT PROBLEMS. [code = SKILLED NURSE TO REVIEW PATIENT MEDICATIONS. INSTRUCT PATIENT/CAREGIVER ON MONITORING OF EFFECTIVENESS, ADVERSE DRUG REACTIONS, SIDE EFFECTS OF ALL MEDICATIONS (PRESCRIPTION/-OTC), AND HOW AND WHEN TO REPORT PROBLEMS.] Future Scheduled Test SKILLED NU RSE FOR O/A OF GENERAL HEALTH STATUS OF PAIN, CARDIAC, RESPIRATORY, GASTROINTESTINAL, GENITOURINARY, SKIN, NEUROLOGIC, ENDOCRINE SYSTEMS TO IDENTIFY CHANGES ASSOCIATED WITH EXACERBATION FOR EARLY INTERVENTION OF COMPLICATIONS . [code = SKILLED NURSE FOR O/A OF GENERAL HEALTH STATUS OF PAIN, CARDIAC, RESPIRATORY, GASTROINTESTINAL, GENITOURINARY, SKIN, NEUROLOGIC, ENDOCRINE SYSTEMS TO IDENTIFY CHANGES ASSOCIATED WITH EXACERBATION FOR EARLY INTERVENTION OF COMPLICATIONS .] Future Scheduled Test SKILLED NU RSE FOR O/A AND SKILLED TEACHING RELATED TO SIGNS AND SYMPTOMS AND MANAGEMENT OF DIABETIC NUEROPATHIES AFFECT MUSCULOSKELETAL SYSTEM. [code = SKILLED NURSE FOR O/A AND SKILLED TEACHING RELATED TO SIGNS AND SYMPTOMS AND MANAGEMENT OF DIABETIC NUEROPATHIES AFFECT MUSCULOSKELETAL SYSTEM. ] Future Scheduled Test SKILLED NU RSE [...] SERVICES.] Future Scheduled Test SKILLED NU RSE WILL MAINTAIN SITUATIONAL AWARENESS FOR SAFETY AND WILL NOTIFY CLINICAL KEYBOARDING CLERK AND PHYSICIAN/PROVIDER WITH ANY CHANGE IN CONDITION. [code = SKILLED NURSE WILL MAINTAIN SITUATIONAL AWARENESS FOR SAFETY AND WILL NOTIFY CLINICAL KEYBOARDING CLERK AND PHYSICIAN/PROVIDER WITH ANY CHANGE IN CONDITION.] Goal 2023-08-06 Patient Goal - T AKING [...] MY MEDS AND NO DRINKING ALCOHOL Goal 2024-09-29 Patient Goal - T AKING MY MEDS AND NO DRINKING ALCOHOL Goal 2024-11-28 Patient Goal - T AKING MY MEDS AND NO DRINKING ALCOHOL Goal Patient Goal - T AKING MY MEDS AND NO DRINKING ALCOHOL Goal Provider Goal - A PLAN OF CARE WILL BE ESTABLISHED THAT MEETS PATIENT'S INTERMEDIATE NEEDS AND INCLUDES PATIENT GOAL FOR HOME HEALTH. Goal Provider Goal - PATIENT/CAREGIVER WILL VERBALIZE/DEMONSTRATE EFFECTIVE HOME SAFETY AND FALL PREVENTION STRATEGIES THROUGHOUT CERTIFICATION PERIOD. Goal Provider Goal - ALTERED MENTAL/BEHAVIORAL STATUS [...] THROUGHOUT CERTIFICATION PERIOD. Goal Provider Goal - SKILLED NURSE PICKED UP AND TRANSPORTED MEDICATIONS FOR SAFETY. Goal Provider Goal - PATIENT/CAREGIVER WILL VERBALIZE SIGNS AND SYMPTOMS OF EXACERBATION OF HYPO/HYPERGLYCEMIA TO REPORT TO NURSE/PHYSICIAN THROUGHOUT THE CERTIFICATION PERIOD. Goal Provider Goal - PATIENT/CAREGIVER WILL VERBALIZE/DEMONSTRATE KNOWLEDGE OF DIABETIC MANAGEMENT. CHANGES IN DIABETIC STATUS WILL BE IDENTIFIED AND REPORTED TO PHYSICIAN FOR PROMPT INTERVENTION THROUGHOUT THE CERTIFICATION PERIOD. Goal Provider Goal - BLOOD SUGAR READING WILL BE OBTAINED ORDERED THROUGHOUT CERTIFICATION PERIOD. Goal Provider Goal - PATIENT WILL BE ABLE TO PERFORM DAILY FUNCTIONS AND HAVE OPTIMAL IMPROVEMENT IN THOUGHT PROCESS THROUGHOUT CERTIFICATION PERIOD. Goal Provider Goal - PATIENT/CAREGIVER WILL VERBALIZE UNDERSTANDING OF EDUCATION PROVIDED ON MEDICATIONS BY THE END OF THE CERTIFICATION PERIOD. Goal Provider Goal - CHANGE IN GENERAL HEALTH STATUS WILL BE IDENTIFIED AND REPORTED TO PHYSICIAN FOR PROMPT INTERVENTION TO MINIMIZE ASSOCIATED RISKS THROUGHOUT CERTIFICATION PERIOD. Goal Provider Goal - PATIENT/CAREGIVER WILL VERBALIZE UNDERSTANDING OF MUSCULOSKELETAL DISEASE INCLUDING SIGNS AND SYMPTOMS, MANAGEMENT, AND PRESCRIBED TREATMENT REGIMEN BY END OF EPISODE. Goal Provider Goal - PSYCHOSOCIAL NEEDS WILL BE IDENTIFIED AND PLAN IMPLEMENTED TO MINIMIZE RISK THROUGHOUT CERTIFICATION PERIOD. Goal Provider Goal - PATIENT WILL REMAIN SAFE IN THE COMMUNITY AND WILL BE FREE OF DANGER TO SELF AND OTHERS THROUGHOUT THE CERTIFICATION PERIOD. Encounters Start Date/Time End Date/Time Encounter Type Admission Type Attending [facility] Care Facility Care Department Encounter ID Discharge Date Discharge Status Discharge Condition Discharge Reason Percent Goals Met 2024-12-03 00:00:00 2025-01-31 00:00:00 Outpatient RECERTIFIC DAVID GENTILE [facility] [id number] .00
== END 2024-12-29 10:04 | disposition home or self-care (01) ==
LOC: HO.HHCL 10:03
PROVIDERS: PCP Internal Medicine; Visit Provider Internal Medicine
DX: E11.49 Type 2 diabetes mellitus with other diabetic neurological complication (principal)
CPT/HCPCS: 36415; 80053; 82043; 82570

== ENCOUNTER 2025-03-09 08:29 | Outpatient (AMB) | payer OTHER, SELFPAY ==
--- OUTSIDE RECORDS SUMMARY | 2024-01-11 05:00 | XMS_ITS ---
Author Organization [facility] Address [address] [place] [phone] Care Team Providers Care Bread And Pastry Baker Name Role Phone Chandni Ospina Primary Care Provider Torin Arroyo [phone] REASON FOR VISIT for sooner apt Encounters Encounter Location Date Provider Diagnosis [address] [address] 01/11/2024 Torin Jones Plan Of Treatment No Information Progress Notes * Claribel MITCHELLOB:1965 ( 60 yo M)Acc No.[id number]:01/11/2024 Progress Note Patient: Ayush GANDHIel Provider: Georgina Jones DPM :1965 A ge:58 Y S ex:Male Date:01/11/2024 Address:[address] [place], [place] [phone] Pcp:Chandni Ospina Subjective: * Chief Complaints: * [...] Pending * Provider: Georgina Jones DPM Date: 01/11/2024 Generated for Autumni ng/Faamandag/eTransmitting on: 03/09/2025 09:01 AM EDT
--- NOTE | 2025-03-09 08:35 | MHC.OFFVIS ---
Intake Visit Reasons: Erectile dysfunction Intake Note: Patient is present for ERECTILE DYSFUNCTION Urology Medication:TAMSULSOIN Antibiotic Allergy:GABAPENTIN Blood Thinner:ASPIRIN Seed Service Advisor Required: No Seed Service Advisor Services: Seed Service Advisor Present Seed Service Advisor Name: JESSICA ARTISFara HEADLEY Allergies olanzapine (From ZYPREXA) Allergy (Unknown, Verified 03/09/25 10:43) UNKNOWN mirtazapine (From REMERON) Adverse Reaction (Unknown, Verified 03/09/25 10:43) PAIN IN LEGS sertraline (From ZOLOFT) Adverse Reaction (Unknown, Verified 03/09/25 10:43) ANXIETY gabapentin Adverse Reaction (Verified 03/09/25 10:43) Unknown metformin Adverse Reaction (Verified 03/09/25 10:43) Unknown Medication List - Last Reconciled 03/09/25 by MARTIN Naranjo albuterol sulfate 90 mcg/actuation (Ventolin HFA) 2 puffs inhalation Q4H PRN ascorbic acid (vitamin C) (Vitamin C) 1,000 mg PO DAILY aspirin 81 mg PO DAILY cholecalciferol (vitamin D3) (Vitamin D3) 50 mcg PO DAILY clonazepam 2 mg PO BEDTIME diphenhydramine HCl (Benadryl Allergy) 25 mg PO BEDTIME PRN dorzolamide-timolol 22.3-6.8 mg/mL 1 drp ophthalmic (eye) BID duloxetine 60 mg PO DAILY fluticasone propion-salmeterol 250-50 mcg/dose (Wixela Inhub) 1 ea inhalation BID fluticasone propionate 50 mcg/actuation 2 sprays intranasal DAILY PRN glipizide 2.5 mg (1/2 x 5 mg) PO DAILY 30 days hydroxyzine HCl 25 mg PO BID PRN lisinopril 10 mg PO DAILY loratadine 10 mg PO DAILY montelukast 10 mg PO BEDTIME omeprazole 20 mg PO BID@0630,1630 ropinirole 0.5 mg PO BEDTIME rosuvastatin 40 mg PO BEDTIME tamsulosin (Flomax) 0.4 mg PO BEDTIME trazodone 150 mg PO BEDTIME PRN verapamil ER 100 mg PO BEDTIME vitamin A 2,400 mcg PO DAILY vitamin E 268 mg PO DAILY zinc acetate 50 mg PO DAILY HPI Comments Details: Milind is a 60-year-old Fijian-speaking male patient of Dr. Menjivar. He has a past medical history of GERD, asthma, anxiety, hyperlipidemia, hypertension, obstructive sleep apnea, alcohol abuse, suicidal ideation, and diverticulosis. He presents to the office today as a new patient for erectile dysfunction. He reports having followed up with his PCP in discussing his ongoing issues with erectile dysfunction at which time urology referral was made for further assessment evaluation. In discussion with the patient today he reports symptoms of erectile dysfunction have been present for over a year. He is able to obtain an erection however feels maintaining erections adequate for penetration is difficult. We did discussed at length potential causes of ED as well as further treatment options and risks and benefits of these treatment options. He discusses having previously had a sleep apnea machine however moved in some how misplaced his machine. He reports having had a recent sleep study however does not recall where and or results of sleep study. He reports having followed up with his PCP regarding this issue and recommendations were made for referral to sleep medicine however he continues to await call for appointment. He also reports having followed up with ophthalmology. He denies any bothersome urinary issues. He denies urinary urgency, urinary frequency, incontinence, nocturia, hematuria, dysuria, foul smelling urine, changes to urinary stream, flank pain, fever, and or chills. He is happy with his current voiding parameters. Unable to obtain urine for urinalysis as patient unable to void. We did discuss importance of lifestyle modifications to assist with ED as well as overall health and well-being. All questions were answered. He otherwise offers no other issues or concerns at this time. [facility] Medical History GERD (gastroesophageal reflux disease) Asthma Anxiety Hyperlipidemia Hypertension BRI (obstructive sleep apnea) Alcohol abuse Suicidal ideation Diverticulosis Surgical History History of laparoscopic cholecystectomy Social History Household Members: None Housing: Apartment Do you presently have visiting nurse or other home services: No Alcohol intake: current Alcohol intake frequency: holidays/special occasions only Alcohol type: beer Comment: sleeping Patient Tobacco Use Status: Never used Tobacco service: No Current occupational status: disabled Sexual orientation: Straight/Heterosexual Review of Systems Const All systems reviewed & are unremarkable except as noted in HPI and below Physical Exam Const General: cooperative, healthy appearing, comfortable, no acute distress, well developed, alert and awake Nutritional Appearance: overweight Orientation/consciousness: patient oriented x3 Limitations: language barrier HEENT Head: Yes normal to inspection, Yes normocephalic and Yes atraumatic Ears: hearing grossly normal bilaterally Eyes General: appearance normal, both eyes and all related structures Neck Neck: Yes normal visual inspection and Yes trachea midline Chest Chest palpation & inspection: normal inspection of the chest Resp Effort & Inspection: normal respiratory effort and able to speak in complete sentences Cardio Rate: regular rate GI Inspection: Yes normal to inspection General: Yes no CVA tenderness Back/Spine/Pelvis Back: no CVA tenderness Skin General skin exam: no rashes or lesions noted Neuro General: patient oriented x3 Extrem General: Yes normal to inspection Psych Appearance: grossly normal and well kempt Mental Status: mental status grossly normal Speech and movement: Normal speech and movement present and Clear speech present Affect: normal affect Attitude: cooperative Thought process: Normal thought process present Thought content: Normal thought content present Assessment & Plan Assessment & Plan (1) Erectile dysfunction: Code(s): N52.9 - Male erectile dysfunction, unspecified Category: Medical Plan Unable to obtain urine for urinalysis as patient unable to void. We did discussed at length potential causes of ED as well as further treatment options and risks and benefits of these treatment options. He currently denies any bothersome urinary issues or concerns. He reports be happy with current voiding parameters. We discussed the importance of lifestyle modifications to assist with ED as well as overall health and well-being. Start low-dose Cialis as discussed and prescribed. Prescription provided for p.r.n. dosing prior to sexual activity. Will refer to sleep medicine. All questions were answered. Will obtain PSA and testosterone for further assessment evaluation Follow-up in 3 months with labs; or sooner with any issues, concerns, and or questions. Orders: Referrals Sleep Medicine Referral G47.00 - Insomnia, unspecified Medications: New tadalafil (Cialis) [id number] [facility] Group[facility] Member [id number] 5 mg PO DAILY 90 tabs 0RF 90 days tadalafil Take 1 tablet 1 hour prior to sexual activity not to exceed more than 3 times per week [id number] [facility] Group[facility] Member [id number] 10 mg PO .on demand PRN 10 tabs 3RF sexual activity 30 days N52.9 - Male erectile dysfunction, unspecified Patient Instructions: The patient had an opportunity to ask questions regarding the treatment plan. All questions were answered. Physical exam, labs, and imaging were discussed and reviewed in detail. As well as risks, benefits, and discussion of treatment choices. No major barriers to understanding were identified. The patient expressed understanding and agreement with the above treatment plan. The patient was made aware they should contact our office by phone for worsening of their current condition, the appearance of new symptoms, or with any questions or concerns. Compliance is encouraged with any medications and follow up testing that is ordered. It is a privilege to be allowed the opportunity to participate in? your urological care.? Again, if you have any questions or concerns If you have any questions or concerns please do not hesitate to contact me. The office is [phone]. This note is constructed using voice recognition software. While every effort has been made to ensure accuracy hands parter errors may have been included. Yours sincerely, MARTIN Naranjo Coding Level of Care Code New Pt Level 4 (49384) Diagnoses Erectile dysfunction N52.9
--- OUTSIDE RECORDS SUMMARY | 2025-03-09 09:02 | XMS_ITS | Encounter Summary ---
Author Organization [employer] Address [address] [facility] 7t [place] [address] Care Team Providers Care Traffic Court Magistrate Name Role Phone Kasey Rodriguez MD Primary Care Provide r Reason for Visit * Reason Comments Med Refill Encounter Details Date Type Department Care Team ([facility] st Contact Info) Description 09/21/2024 Refill [facility] MEDICINE [address] [place], [place] [phone] Kasey Rodriguez MD [address] [place], [place] [phone] Social History Tobacco Use Types Packs/Day Years [...] Care Team (Late st Contact Info) Description 04/11/2025 9:00 AM EDT Office Visit [facility] MEDICINE [address] [place] [address] Kasey Rodriguez MD [address] [place] [address] documented as of this encounter Visit Diagnoses Not on filedocumented in this encounter Additional Health Concerns Assessment Noted Time PHQ-9 Depression Total Score: 4 03/16/20 23 9:21 AM EDT documented as of this encounter Care Teams Traffic Court Magistrate Relationship Specialty Start Date End Date Kasey Rodriguez MD [address] [place] [id number] PCP - General Internal Medicine 02/23/23 Robert Caring 06/12/23 documented as of this encounter
--- OUTSIDE RECORDS SUMMARY | 2025-03-09 09:02 | XMS_ITS | Encounter Summary ---
Author Organization [employer] Address [address] [facility] 7t [place] [address] Care Team Providers Care Material Cutter Name Role Phone Kasey Rodriguez MD Primary Care Provide r Reason for Visit * Reason Comments Med Refill Encounter Details Date Type Department Care Team ([facility] Contact Info) Description 04/13/2024 Refill [facility] MEDICINE [address] [place], [place] [phone] Kasey Rodriguez MD [address] [place], [place] [phone] Social History Tobacco Use Types Packs/Day Years [...] Description 04/11/2025 9:00 AM EDT Office Visit [facility] MEDICINE [address] [place] [address] Kasey Rodriguez MD [address] [place] [address] documented as of this encounter Visit Diagnoses Not on filedocumented in this encounter Additional Health Concerns Assessment Noted Time PHQ-9 Depression Total Score: 4 03/16/20 23 9:21 AM EDT documented as of this encounter Care Teams Material Cutter Relationship Specialty Start Date End Date Kasey Rodriguez MD [address] [place] [id number] PCP - General Internal Medicine 02/23/23 Robert Caring 06/12/23 documented as of this encounter
--- OUTSIDE RECORDS SUMMARY | 2025-03-09 09:02 | XMS_ITS | Patient Health Record ---
Author Organization [facility] Address [address] [place] [address] Care Team Providers Care Scallop Cutter Machine Name Role Phone Chandni Ospina Primary Care Provider Torin Arroyo Unavailable [phone] Allergies Allergen (clinical drug ingredient) Drug/Non Drug [...] MG 1 capsule Orally On ce a day; Duration: 30 day(s) Active Night Splint AFO - L1930 as directed 01/23/2021 Active Custom Orthotics as directed A ctive Extra Depth Diabetic Shoes with 3 Pair Custom heat-molded multi-density innersoles for 1 year Dx: 01/23/2021 Not-Taking Dry Eye Relief Drops Active Fish Oil Active Fluticasone Propionate 50 MCG/ACT 1 spray in each nostril Nasally Once a day; Duration: 30 day(s) Active glipiZIDE Active Glimepiride 1 MG 1 tablet with breakf ast or the first main meal of the day Orally Once a day; Duration: 30 day(s) Active Ketoconazole 2 % as directed Externally Active Vitamin C Active Vitamin E Active Zinc Active Loratadine 10 MG 1 tablet Orally Once a day; Duration: 30 day(s) Active Montelukast Sodium 10 MG 1 tablet Orally Once a day; Duration: 30 day(s) Active Omeprazole 20 MG 1 capsule 30 minutes before morning meal Orally Once a day; Duration: 30 day(s) Active rOPINIRole HCl 0.5 MG 1 tablet 1 to 3 ho urs before bedtime Orally Once a day; Duration: 30 day(s) Active Rosuvastatin Calcium 40 MG 1 tablet Orally Once a day; Duration: 30 day(s) Active Extra Depth Diabetic Shoes with 3 Pair Custom heat-molded multi-density innersoles for 1 year Dx: Active Tamsulosin HCl Activ e traZODone HCl 150 MG 1 tablet at bedtime Orally Once a day; Duration: 30 day(s) Active Verapamil HCl Active Ventolin HFA 108 (90 Base) MCG/ACT 1 puff as needed Inhalation every 4 hrs Active Vitamin A Active Immunizations Vaccine Route Administration Date Status Comme nts Influenza Unknown 04/18/2022 Administered COVID-19 Moderna Vaccine Unknown 05/10/2021 Administered 1st 10/08/202021 2nd 11/05/20 3rd 05/08/21 Social History Tobacco Use: Social History Observation [...] Status Risk Notes Problem Acquired hallux valgus (72123587) Hallux valgus (acquired), left foot (M20.12) Active confirmed Problem Acquired hallux valgus (48198224) Hallux valgus (acquired), right foot (M20.11) Active confirmed Problem Polyneuropathy due to type 2 diabetes mellitus (330387337) Type 2 diabetes mellitus with diabetic polyneuropathy (E11.42) Active confirmed Problem Polyneuropathy due to diabetes mellitus type I (494807231) Type 1 diabetes mellitus with diabetic polyneuropathy (E10.42) Active confirmed Plan Of Treatment Pending Test Test Name Order Date X ray : Foot, left 3V 01/23/2021 X ray : Foot, right 3V 01/23/2021 [id number] SKIN LESIONS, OVER 4 01/24/20 21 [id number] SKIN LESIONS, OVER 4 05/13/20 21 [id number] SKIN LESIONS, OVER 4 08/12/19 22 Insurance Providers Payer Name Payer Address Payer Phone Subscriber Number Group Number Insured Name Patient Relationship to Insured Coverage Start Date Coverage End Date [facility] [employer] Claims [address] [place] [id number] Milind Whitman Self - patient is the insured Medical (General) History Medical History History ICD Code Anxiety Arthritis asthma Depression Gall bladder problems Glaucoma High blood pressure leg pain balance trouble type II diabetes Cataracts Surgical History Surgery Date(Month/Year) gall bladder removal 06/27/2020 R eye surgery cataract/glaucoma 09/2021 Hospitalization History Reason Date(Month/Year) Gall bladder 7 days stay 06/27/2020
--- OUTSIDE RECORDS SUMMARY | 2025-03-09 09:02 | XMS_ITS | Encounter Summary ---
Author Organization [facility] Address [address] [facility] 7t [place] [address] Care Team Providers Care Head Knitting Machine Fixer Name Role Phone Kasey Rodriguez MD Primary Care Provide r Encounter Details Date Type Department Care Team (Latest Contact Info) Description 10/22/2020 Abstract [facility] CONVERSIONS Dental, Provider, DDS Social History Tobacco [...] Description 04/11/2025 9:00 AM EDT Office Visit [facility] MEDICINE [address] [place] [address] Kasey Rodriguez MD [address] [place] [address] documented as of this encounter Visit Diagnoses Not on filedocumented in this encounter Care Teams Head Knitting Machine Fixer Relationship Specialty Start Date End Date Kasey Rodriguez MD [address] [place] [address] [phone] PCP - General Internal Medicine 02/23/23 Robert Parkinson 06/12/23 documented as of this encounter
--- OUTSIDE RECORDS SUMMARY | 2025-03-09 09:02 | XMS_ITS | Encounter Summary ---
Author Organization [employer] Address [address] [facility] 7t [place] [address] Care Team Providers Care Driveway Attendant Name Role Phone Kasey Rodriguez MD Primary Care Provide r Reason for Visit * Reason Comments Med Refill Encounter Details Date Type Department Care Team ([facility] Contact Info) Description 05/11/2024 Refill [facility] MEDICINE [address] [place], [place] [phone] Kasey Rodriguez MD [address] [place], [place] [phone] Type 2 diabetes mellitus with hyperglycemia, without long-term current use of insulin ([facility]); Chronic obstructive pulmonary disease, unspecified COPD type ([facility]) Social History Tobacco Use Types Packs/Day Years [...] with others, in a hotel, in a assisted, living outside on the street, on a [...] Description 04/11/2025 9:00 AM EDT Office Visit [facility] MEDICINE [address] [place] [address] Kasey Rodriguez MD [address] [place] [address] documented as of this encounter Visit Diagnoses Diagnosis Type 2 diabetes mellitus with hyperglycemia, without long-term current use of insulin (CMS/HCC) Chronic obstructive pulmonary disease, unspecified COPD type (CMS/HCC) documented in this encounter Additional Health Concerns Assessment Noted Time PHQ-9 Depression Total Score: 4 03/16/20 23 9:21 AM EDT documented as of this encounter Care Teams Driveway Attendant Relationship Specialty Start Date End Date Kasey Rodriguez MD [address] [place] [address] PCP - General Internal Medicine 02/23/23 Robert Parkinson 06/12/23 documented as of this encounter
--- OUTSIDE RECORDS SUMMARY | 2025-03-09 09:02 | XMS_ITS | Encounter Summary ---
Author Organization [employer] Address [address] [facility] 7t [place] [address] Care Team Providers Care Warehouse Shipping Receiving Clerk Name Role Phone Kasey Rodriguez MD Primary Care Provide r Encounter Details Date Type Department Care Team ([facility] st Contact Info) Description 09/14/2024 Telephone [facility] MEDICINE [address] [place] [address] Desiree Chan, PharmD [address] [place] [address] Social History Tobacco Use Types Packs/Day Years [...] with others, in a hotel, in a intermediate, living outside on the street, on a [...] Upcoming Encounters Date Type Department Care Team ([facility] st Contact Info) Description 04/11/2025 9:00 AM EDT Office Visit [facility] MEDICINE [address] [place] [phone] Kasey Rodriguez MD [address] [place] [phone] documented as of this encounter Visit Diagnoses Not on filedocumented in this encounter Additional Health Concerns Assessment Noted Time PHQ-9 Depression Total Score: 4 03/16/20 23 9:21 AM EDT documented as of this encounter Care Teams Warehouse Shipping Receiving Clerk Relationship Specialty Start Date End Date Kasey Rodriguez MD [address] [place] [phone] PCP - General Internal Medicine 02/23/23 Robert Caring 06/12/23 documented as of this encounter
--- OUTSIDE RECORDS SUMMARY | 2025-03-09 09:02 | XMS_ITS | Encounter Summary ---
Author Organization [facility] Address [address] [facility] 7t [place] [address] Care Team Providers Care Thermoscrew Operator Name Role Phone Kasey Rodriguez MD Primary Care Provide r Encounter Details Date Type Department Care Team (Latest Contact Info) Description 10/01/2018 Abstract [facility] CONVERSIONS Dental, Provider, DDS Social History [...] Description 04/11/2025 9:00 AM EDT Office Visit [facility] MEDICINE [address] [place] [address] Kasey Rodriguez MD [address] [place] [address] documented as of this encounter Visit Diagnoses Not on filedocumented in this encounter Care Teams Thermoscrew Operator Relationship Specialty Start Date End Date Kasey Rodriguez MD [address] [place] [address] [phone] PCP - General Internal Medicine 02/23/23 Robert Parkinson 06/12/23 documented as of this encounter
--- OUTSIDE RECORDS SUMMARY | 2025-03-09 09:02 | XMS_ITS | Encounter Summary ---
Author Organization [employer] [facility] Address [address] [facility] 7t [place] [address] Care Team Providers Care Biological Lab Technician Name Role Phone Kasey Rodriguez MD Primary Care Provide r Encounter Details Date Type Department Care Team (Latest Contact Info) Description 09/11/2021 Abstract [facility] CONVERSIONS Dental, Provider, DDS Social History Tobacco [...] Description 04/11/2025 9:00 AM EDT Office Visit [facility] MEDICINE [address] [place] [address] Kasey Rodriguez MD [address] [place] [address] documented as of this encounter Procedures Procedure Name Priority Date/Time Associated Diagnosis Comments 2,3,5,8,9,12,14,15 PARTIAL DENTURE - CAST METAL Routine 09/11/2021 12:00 AM EDT documented in this encounter Visit Diagnoses Not on filedocumented in this encounter Care Teams Biological Lab Technician Relationship Specialty Start Date End Date Kasey Rodriguez MD [address] [place] [address] [phone] PCP - General Internal Medicine 02/23/23 Robert Parkinson 06/12/23 documented as of this encounter
--- OUTSIDE RECORDS SUMMARY | 2025-03-09 09:02 | XMS_ITS | Encounter Summary ---
Author Organization [employer] Address [address] [facility] 7t [place] [address] Care Team Providers Care Lab Support Technician Name Role Phone Kasey Rodriguez MD Primary Care Provide r Reason for Visit * Reason Comments Med Refill Encounter Details Date Type Department Care Team ([facility] Contact Info) Description 04/15/2024 Refill [facility] MEDICINE [address] [place], [place] [phone] Kasey Rodriguez MD [address] [place], [place] [phone] Social History Tobacco Use Types Packs/Day Years [...] Description 04/11/2025 9:00 AM EDT Office Visit [facility] MEDICINE [address] [place] [address] Kasey Rodriguez MD [address] [place] [address] documented as of this encounter Visit Diagnoses Not on filedocumented in this encounter Additional Health Concerns Assessment Noted Time PHQ-9 Depression Total Score: 4 03/16/20 23 9:21 AM EDT documented as of this encounter Care Teams Lab Support Technician Relationship Specialty Start Date End Date Kasey Rodriguez MD [address] [place] [phone] PCP - General Internal Medicine 02/23/23 Robert Caring 06/12/23 documented as of this encounter
--- OUTSIDE RECORDS SUMMARY | 2025-03-09 09:02 | XMS_ITS | Encounter Summary ---
Author Organization [employer] Address [address] [facility] 7t [place] [address] Care Team Providers Care Pre Press Operator Name Role Phone Kasey Rodriguez MD Primary Care Provide r Reason for Visit * Reason Comments Med Refill Encounter Details Date Type Department Care Team ([facility] Contact Info) Description 04/13/2024 Refill [facility] MEDICINE [address] [place], [place] [phone] Kasey Rodriguez MD [address] [place], [place] [phone] Social History Tobacco Use Types Packs/Day Years [...] Description 04/11/2025 9:00 AM EDT Office Visit [facility] MEDICINE [address] [place] [address] Kasey Rodriguez MD [address] [place] [address] documented as of this encounter Visit Diagnoses Not on filedocumented in this encounter Additional Health Concerns Assessment Noted Time PHQ-9 Depression Total Score: 4 03/16/20 23 9:21 AM EDT documented as of this encounter Care Teams Pre Press Operator Relationship Specialty Start Date End Date Kasey Rodriguez MD [address] [place] [id number] PCP - General Internal Medicine 02/23/23 Robert Caring 06/12/23 documented as of this encounter
--- OUTSIDE RECORDS SUMMARY | 2025-03-09 09:02 | XMS_ITS | Encounter Summary ---
Author Organization [employer] Address [address] [facility] [address] [place] [address] Care Team Providers Care Power Generation Plant Operator Name Role Phone Kasey Rodriguez MD Primary Care Provide r Reason for Visit * Reason Comments Med Refill Encounter Details Date Type Department Care Team ([facility] Contact Info) Description 04/14/2024 Refill [facility] MEDICINE [address] [place], [place] [phone] Kasey Rodriguez MD [address] [place], [place] [phone] Social History Tobacco Use Types Packs/Day Years [...] with others, in a hotel, in a usp, living outside on the street, on a [...] Description 04/11/2025 9:00 AM EDT Office Visit [facility] [address] [place] [address] Kasey Rodriguez MD [address] [place] [address] documented as of this encounter Visit Diagnoses Not on filedocumented in this encounter Additional Health Concerns Assessment Noted Time PHQ-9 Depression Total Score: 4 03/16/20 23 9:21 AM EDT documented as of this encounter Care Teams Power Generation Plant Operator Relationship Specialty Start Date End Date Kasey Rodriguez MD [address] [place] [id number] PCP - General Internal Medicine 02/23/23 Robert Caring 06/12/23 documented as of this encounter
--- OUTSIDE RECORDS SUMMARY | 2025-03-09 09:02 | XMS_ITS | Encounter Summary ---
Author Organization [employer] Address [address] [facility] 7t [place] [address] Care Team Providers Care Hand Upper And Bottom Lacer Name Role Phone Kasey Rodriguez MD Primary Care Provide r Reason for Visit * Reason Comments Med Refill Encounter Details Date Type Department Care Team ([facility] Contact Info) Description 05/10/2024 Refill [facility] MEDICINE [address] [place], [place] [phone] Kasey Rodriguez MD [address] [place], [place] [phone] Type 2 diabetes mellitus with hyperglycemia, without long-term current use of insulin ([facility]); Chronic obstructive pulmonary disease, unspecified COPD type ([facility]) Social History Tobacco Use Types Packs/Day [...] with others, in a hotel, in a [facility], living outside on the street, on a [...] Description 04/11/2025 9:00 AM EDT Office Visit [facility] MEDICINE [address] [place] [address] Kasey Rodriguez MD [address] [place] [address] documented as of this encounter Visit Diagnoses Diagnosis Type 2 diabetes mellitus with hyperglycemia, without long-term current use of insulin (CMS/HCC) Chronic obstructive pulmonary disease, unspecified COPD type (CMS/HCC) documented in this encounter Additional Health Concerns Assessment Noted Time PHQ-9 Depression Total Score: 4 03/16/20 23 9:21 AM EDT documented as of this encounter Care Teams Hand Upper And Bottom Lacer Relationship Specialty Start Date End Date Kasey Rodriguez MD [address] [place] [address] PCP - General Internal Medicine 02/23/23 Robert Parkinson 06/12/23 documented as of this encounter
--- OUTSIDE RECORDS SUMMARY | 2025-03-09 09:03 | XMS_ITS | Encounter Summary ---
Author Organization [employer] Address [address] [facility] 7t [place] [address] Care Team Providers Care Supervisor Conditioning Yard Name Role Phone Kasey Rodriguez MD Primary Care Provide r Reason for Visit * Reason Comments Med Refill Encounter Details Date Type Department Care Team ([facility] Contact Info) Description 01/03/2024 Refill [facility] [address] [place], [place] [phone] Kasey Rodriguez MD [address] [place], [place] [phone] Chronic obstructive pulmonary disease, unspecified COPD type [...] 9:00 AM EDT Office Visit [facility] MED[facility]INE [address] [place] [address] Kasey Rodriguez MD [address] [place] [address] documented as of this encounter Visit Diagnoses Diagnosis Chronic obstructive pulmonary disease, unspecified COPD type (CMS/HCC) documented in this encounter Additional Health Concerns Assessment Noted Time PHQ-9 Depression Total Score: 4 03/16/20 9:21 AM EDT documented as of this encounter Care Teams Supervisor Conditioning Yard Relationship Specialty Start Date End Date Kasey Rodriguez MD [address] [place] [id number] PCP - General Internal Medicine 02/23/23 Robert Parkinson 06/12/23 documented as of this encounter
--- OUTSIDE RECORDS SUMMARY | 2025-03-09 09:03 | XMS_ITS | Encounter Summary ---
Author Organization [employer] Address [address] [facility] [address] [place] [address] Care Team Providers Care Balance And Hairspring Assembler Name Role Phone Kasey Rodriguez MD Primary Care Provide r Reason for Visit * Reason Comments Med Refill Encounter Details Date Type Department Care Team ([facility] Contact Info) Description 01/27/2024 Refill [facility] MEDICINE [address] [place], [place] [phone] Kasey Rodriguez MD [address] [place], [place] [phone] Chronic obstructive pulmonary disease, unspecified COPD type [...] Description 04/11/2025 9:00 AM EDT Office Visit [facility] MED[facility]INE [address] [place] [address] Kasey Rodriguez MD [address] [place] [address] documented as of this encounter Visit Diagnoses Diagnosis Chronic obstructive pulmonary disease, unspecified COPD type (CMS/HCC) documented in this encounter Additional Health Concerns Assessment Noted Time PHQ-9 Depression Total Score: 4 03/16/20 9:21 AM EDT documented as of this encounter Care Teams Balance And Hairspring Assembler Relationship Specialty Start Date End Date Kasey Rodriguez MD [address] [place] [id number] PCP - General Internal Medicine 02/23/23 Robert Parkinson 06/12/23 documented as of this encounter
--- OUTSIDE RECORDS SUMMARY | 2025-03-09 09:03 | XMS_ITS | Clinical Summary ---
Author Organization [employer] Address [address] [facility] 7t [place] [address] Care Team Providers Care Diesel Plant Operator Name Role Phone Kasey Rodriguez [...] 08/12/2013 Increase anxiety Other reaction(s): Unknown Medications DULoxetine (Cymbalta) [address] capsule Take 60 mg by mouth in the morning. 023 Active traZODone (Desyrel) 150 MG tablet Take 150 mg by mouth if needed at bedtime. 023 Active Blood Pressure Monitor kit Check blood pressure twice a wee. Dx hypertension 1 kit 023 Active OneTouch Delica Lancets 33G miscIndications :Type 2 diabetes mellitus with hyperglycemia, without long-term current use of insulin ([facility]) Use 1 lancet to monitor blood glucose twice daily 100 each 3 023 Active ibuprofen 400 MG tablet TAKE 1 TABLET BY MOUTH EVERY 6 HOURS NEEDED FOR PAIN OR FEVER 20 tablet 023 Active Blood Glucose Monitoring Suppl (ONE TOUCH ULTRA 2) w/Device kitIndications: Type 2 diabetes mellitus with hyperglycemia, without long-term current use of insulin ([facility]) Use to test blood sugar two times daily 1 kit 023 Active Fluticasone-Ben meterol 250-50 MCG/ACT aerosol powderIndicatio ns:Chronic obstructive pulmonary disease, unspecified COPD type ([facility]/HCC) INHALE ONE PUFF BY MOUTH TWICE A DAY RINSE MOUTH AFTER USING (BULK) 60 each 11 024 Active glipiZIDE XL (Glucotrol XL) 2.5 MG 24 hr tabletIndicatio ns:Type 2 diabetes mellitus with hyperglycemia, without long-term current use of insulin ([facility]) TAKE ONE TABLET BY MOUTH EVERY MORNING DO NOT BREAK, CRUSH, DISSOLVE OR CHEW ^1R1 30 tablet 11 024 Active Lancets (My Point...ExactlyTouch Delica Plus [id number]) miscIndications :Type 2 diabetes mellitus with hyperglycemia, without long-term current use of insulin ([facility]) USE DIRECTED TWO TIMES A DAY (BULK) 100 each 11 024 Active OneTouch Ultra Test test stripIndication s:Type 2 diabetes mellitus with hyperglycemia, without long-term current use of insulin ([facility]) USE DIRECTED TWO TIMES A DAY (BULK) 100 strip 11 024 Active Diclofenac Sodium 1 % gelIndications: Chronic pain of both knees Apply 1 Application topically every 12 (twelve) hours if needed (apply on affected area). 150 g 1 025 Active aspirin (Aspirin Low Dose) 81 MG EC tablet TAKE ONE TABLET BY MOUTH EVERY DAY 90 tablet 3 025 Active Ventolin HFA 108 (90 Base) MCG/ACT inhalerIndicati ons:Asthma, unspecified asthma severity, unspecified whether complicated, unspecified whether persistent INHALE 2 PUFFS BY MOUTH EVERY 6 HOURS NEEDED FOR WHEEZING (BULK) 18 g 6 025 Active loratadine (Claritin) 10 MG tablet TAKE ONE TABLET BY MOUTH EVERY MORNING ^1R1 90 tablet 3 025 Active fluticasone (Flonase) 50 MCG/ACT nasal sprayIndication s:Allergic rhinitis, unspecified seasonality, unspecified trigger Administer 1-2 sprays into each nostril Once per day. Shake gently. Before first use, prime pump. After use, clean tip and replace cap. 16 g 2 025 08/29/ 2026 Active rosuvastatin (Crestor) 40 MG tabletIndicatio ns:Essential hypertension TAKE ONE TABLET BY MOUTH AT BEDTIME 30 tablet 11 025 Active lisinopril 10 MG tabletIndicatio ns:Essential hypertension TAKE ONE TABLET BY MOUTH EVERY MORNING 30 tablet 11 025 Active rosuvastatin (Crestor) 40 MG tabletIndicatio ns:Essential hypertension TAKE ONE TABLET BY MOUTH AT BEDTIME ^1R4 30 tablet 11 024 2024 Discontinued(R eorder (will not trigger notification to Pharmacy)) lisinopril 10 MG tabletIndicatio ns:Essential hypertension TAKE ONE TABLET BY MOUTH EVERY MORNING ^1R1 30 tablet 11 024 2024 Discontinued(R eorder (will not trigger notification to Pharmacy)) Active Problems Problem Noted Date Diagnosed Date [...] 05/02/2021 Peripheral neuropathy 03/06/2021 Overview (06/23/2024): Of feet, [facility] Aortic dilatation 06/21/2020 Overview (06/23/2024): 3.1 cm noted on echo 05/2020 DM (diabetes mellitus), type 2 with neurological complications 04/29/2019 Overview (06/23/2024): A1C on 04/29 7.3 Assessment & Plan (12/29/2024 12:08 PM EDT): Diabetes is: almost at goal - Lab Results Component Value Date HGBA1C 7.3 (A) 12/29/2024 HGBA1C 6.6 (A) 09/27/2024 HGBA1C 6.3 (A) 03/04/2024 - Lab Results Component Value Date MICROALBUR 15.0 12/29/2024 CREATININE 1.05 12/29/2024 -Changes: Counseling about frequent meals high in protein and vegetables and low in carbs and sugars was done today to prevent hypoglycemia - Diabetic eye exam: Up-to-date - Diabetic foot exam: Pending - Continue lifestyle modifications - Continue current medications - Follow up: 3 months Severe obesity with body mas s index (BMI) of 35.0 to 39.9 with comorbidity 03/11/2019 Assessment & Plan (12/29/2024 12:09 PM EDT): Extensive counseling about healthy diet and exercise done today Restrictive pattern present on pulmonary functio n testing 10/28/2017 Recurrent major depressive disorder 05/05/2017 Suicidal ideation 05/05/2017 Nocturia 01/20/2017 Vitamin D deficiency 01/20/2017 Mild persistent asthma without complication 12/13 Leukopenia 05/03/2013 Overview (06/23/2024): S/p bone marrow biopsy was normal, followed by Dr Farrell Obstructive sleep apnea 03/25/2013 Overview (06/23/2024): [facility]: Date 06/22/2013; Wt 225# SE 40%; SM 65%; REM 10%; RDI 9 HI 8, worse in REM (RDI 51 AHI 48) Central apneas 0 Obstructive apneas 0 Mixed apneas 0 hypopneas 22; RERAs 5 ;average oxygen saturation 95% (lowest 77% - without saturations <88% for 5% or more of study); PLMs 9. [facility] Polysomnogram treatment study. Date 07/21/2013. SE 61 [...] OB, cough. Chronic obstructive lung disease 12/04/2011 Assessment & Plan (12/29/2024 12:11 PM EDT): Stable continue with same interventions Depressive disorder 12/04/2011 Assessment & Plan (06/25/2023 12:17 PM EST): Continue to follow with psychiatrist and therapist Gastroesophageal reflux disease 12/04/2011 Impotence of organic origin 12/04/2011 Essential hypertension 12/04/2011 Assessment & Plan (12/29/2024 12:07 PM EDT): Advised: - Aerobic exercise to reduce BP. Initial [...] consulting health care provider Assessment & Plan (09/27/2024 2:51 PM EDT): [...] Encounters Date Type Department Care Team Description 02/28/2025 Refill [facility] [address] [place] [address] Kasey Rodriguez MD Essential hypertension 02/10/2025 Orders Only [facility] [address] [place] [phone] Kasey Rodriguez MD Allergic rhinitis, unspecified seasonality, unspecified trigger (Primary Dx) 02/10/2025 Telephone [facility] [address] [place] [address] Kasey Rodriguez MD Med Refill 02/07/2025 Refill [facility] [address] [place] [address] Kasey Rodriguez MD Essential hypertension 01/26/2025 Telephone [facility] [address] [place], [place] [phone] Kasey Rodriguez MD OCT RECALL 01/17/2025 Telephone [facility] [address] [place] [address] Kasey Rodriguez MD FYI 01/11/2025 Telephone [facility] [address] [place] [address] Nupur Peraza 01/09/2025 Orders Only [facility] [address] [place] [address] Kasey Rodriguez MD Loud snoring (Primary Dx) 01/03/[address] [address] Kasey Rodriguez MD 01/02/[address] [phone] Kasey Rodriguez MD Durable Medical Equipment 12/30/2024 Patient Outreach [address] [phone] Kasey Rodriguez MD Care Coordination (CHW outreach for SDOH housing search-referral completed ) 12/29/2024 9:15 AM EDT Office Visit [address] [address] Kasey Rodriguez MD Essential hypertension (Primary Dx); Chronic obstructive pulmonary disease, unspecified COPD type (CMS/HCC); Severe obesity with body mass index (BMI) of 35.0 to 39.9 with comorbidity (CMS/HCC); DM (diabetes mellitus), type 2 with neurological complications (CMS/HCC) 12/29/2024 Travel 12/20/2024 Patient Outreach [address] [phone] Kasey Rodriguez MD Care Coordination (CHW outreach for SDOH housing search-referral completed ) 12/20/2024 Patient Outreach [address] [phone] Kasey Rodriguez MD Pre-visit Planning (SDOH screening negative and tobacco screening negative) 12/13/2024 Travel from Last 3 Months Immunizations Immunization Administration Dates Next Due HepB-CpG 12/13/2024,10/31/2024 INFLUENZA INJECTABLE QUADRIV ALANT CCIIV4 MDCK Multi-dose [...] Answer Date Recorded Patient Health Questionnaire-9 Score 2 12/29/2024 Patient Health Questionnaire-9 Score 2 12/29/2024 Last PHQ-9: Questionnaire Data Not on file 0 12/29/2024 Housing Stability Answer Date Recorded What is your housing situati on today? I have housing today, but I am worried about losing housing in the future 12/29/[address] you li ve. Do you have problems with any of the following? No or not working smoke detectors 12/29/2024 Food Insecurity Answer Date Recorded Within the past 12 months, y ou worried that your food would run out before you got money to buy more: Often true 2024 Within the past 12 months,th e food you bought just didn't last and you didn't have enough money to get more: Sometimes True 12/29/2024 Transportation Answer Date Recorded In the past 12 months, has l ack of transportation kept you from medical appts, meetings, work or from getting things needed for daily living? Yes, it has kept me from medical appointments or getting medications. 12/29/2024 Utilities Answer Date Recorded In the past 12 months, has t he electric, gas, oil or water company threatened to shut off services in your home? No 04/01/2023 Depression Answer Date Recorded Patient Health Questionnaire-2 Score 0 12/29/2024 Internet Access Answer Date Recorded Internet Access Q1 I am not sure 12/29/2024 Internet Access Q2 I do not want or need it 12/13 Sex and Gender Information Value Date Recorded Sex Assigned at Male 04/14/2022 10:14 AM EDT Legal Sex Male 10:14 AM EDT Gender Identity Male 04/14/2022 10:14 AM EDT Sexual Orientation Straight 04/14/2022 10 :14 AM EDT Last Filed Vital Signs Vital Sign Reading Time Taken Comments Blood Pressure 128/80 12/29/2024 9:17 AM EDT Pulse 96 12/29/2024 9:17 AM EDT Temperature 36.2 C (97.2 F) 12/29/2024 9:17 AM EDT Respiratory Rate 19 12/29/2024 9:17 AM EDT Oxygen Saturation 99% 09/27/2024 1:08 PM EDT Inhaled Oxygen Concentration - - Weight 102 kg (224 lb 2 oz) 12/29/2024 9:17 AM E DT Height 165.1 cm (5' 5 ) 12/29/2024 9:17 AM EDT Body Mass Index 37.3 12/29/2024 9:17 AM EDT Plan of Treatment Upcoming Encounters Date Type Department Care Team (Late st Contact Info) Description 04/11/2025 9:00 AM EDT Office Visit [facility] [address] [place] [address] Kasey Rodriguez MD [address] [place] [phone] Health Maintenance Due Date Last Done Comments CT Colonography 1963 Colonoscopy 1963 Colorectal Cancer Screening 1963 FIT DNA/Cologuard 1963 FIT 1963 FOBT 1963 Sigmoidoscopy 1963 Diabetes: Foot Exam 1973 Dental X-Ray: Bitewings 11/12/2024 11/12/2023, 03/10 Dental Oral Exam 12/13/2024 06/14/2024, , 09/09/2022 Dental Prophylaxis 12/13/2024 06/14/2024, 0 11/12/2023, 09/09/2022 COVID-19 Vaccine ( season) 2025 09/07/2023, 03/28/2022, 10/30/2021, Additional history exists Influenza Vaccine (#1) 2025 , 04/19/2021, 04/19/2021, Additional history exists Diabetes: Hemoglobin A1C 03/31/2025 025, 09/27/2024, 03/04/2024, Additional history exists Lipid Panel 09/27/2025 09/27/2024, 06/25/2023 Alcohol/Substance Use Screening 12/29/2025 12/29/2024 Depression Screening 12/29/2025 12/29/2024, 12/30/19 Diabetes: Urine Protein Screening 12/29/2025 12/29/2024, 06/25/2023 Disability Screening 12/29/2025 12/29/2024 SDOH Screening 12/29/2025 12/29/2024 Tobacco Screening 12/29/2025 12/29/2024 Eye Exam 09/16/2026 09/16/2024, 04/0 09/2024, 09/16/2024, Additional history exists Dental X-Ray: Full Mouth 11/12/2026 11/12/2023, 10/14 DTaP/Tdap/Td Vaccines (3 - Td or Tdap) 12/14/2033 12/15/2023, 10/10/2013, 03/10/2008, Additional history exists Zoster Vaccines Completed 07/18/2021, 05/15/2021 RSV Patients and Patients Aged 60 years or older Completed 06/24/2023 Pneumococcal Vaccine: 50+ Years Completed 03/04/2024, 03/27/2017, 10/10/2013, Additional history exists HIV Screening Completed 09/27/2024, 06/25/2023 Hepatitis C Screening Completed 09/27/2024, 024 Hepatitis B Vaccines Completed 12/13/2024, 11/01/19 25 HIB Vaccines Aged Out No longer eligi [...] patient's age to complete this topic Meningococcal B Vaccine Aged Out No l onger eligible based on patient's age to complete [...] Procedure Name Priority Date/Time Associated Diagnosis Comments COMPREHENSIVE METABOLIC PANEL Routine 12/29/2024 10:18 AM EDT DM (diabetes mellitus), type 2 with neurological complications (CMS/HCC) ALBUMIN, RANDOM URINE W/CREATININE Routine 12/29/2024 10:18 AM EDT DM (diabetes mellitus), type 2 with neurological complications (CMS/HCC) POCT GLYCATED HEMOGLOBIN, TOTAL Routine 12/29/2024 9:26 AM EDT DM (diabetes mellitus), type 2 with neurological complications (CMS/HCC) POCT GLUCOSE Routine 12/29/2024 9:25 AM EDT DM (diabetes mellitus), type 2 with neurological complications (CMS/HCC) HEPATITIS C AB W/REFL TO HCV RNA, QN, PCR Routine 09/27/2024 2:12 PM EDT Type 2 diabetes mellitus with hyperglycemia, without long-term current use of insulin (CMS/HCC) Major depressive disorder with current active episode, unspecified depression episode severity, unspecified whether recurrent HIV 1/2 ANTIGEN/ANTIBODY, FOURTH GENERATION W/RFL Routine 09/27/2024 2:12 PM EDT Type 2 diabetes mellitus with hyperglycemia, without long-term current use of insulin ([facility]) Major depressive disorder with current active episode, unspecified depression episode severity, unspecified whether recurrent LIPID PANEL, STANDARD Routine 09/27/2024 2:12 PM EDT Type 2 diabetes mellitus with hyperglycemia, without long-term current use of insulin ([facility]) Major depressive disorder with current active episode, unspecified depression episode severity, unspecified whether recurrent PROPHYLAXIS - ADULT Routine 06/14/2024 8 :00 AM EST Dental calculus Dental plaque PERIODIC ORAL EVALUATION - ESTABLISHED PATIENT Routine 06/14/2024 8:00 AM EST INTRAORAL - COMPLETE SERIES OF RADIOGRAPHIC IMAGES Routine 11/12/2023 10:00 AM EDT from Last 3 Months or Most Recently Relevant to Health Maintenance Results * Albumin, Random Urine W/Creatinine (12/29/2024 10:18 AM EDT) Creatinine, Urine 141.17 mg/dL [facility] Microalbumin Urine 15.0 mg/L [facility] Microalbum Creatinine Ratio Ur 10.6 <30 ug/mg cr [facility] Comment:Albumin/Creatinine R atio Reference Ranges: Normal: < 30 ug/mg creatinine Microalbuminuria: 30 - 300 ug/mg creatinineClinical Albuminuria: > 300 ug/mg creatinine Urine (Urine, Random) 12/29/2024 10:18 AM EDT 12/29/2024 11:17 AM EDT us Kasey Menjivar MD LAB URINE ORDERABLES Final Result [facility] [address] [place] [phone] * (ABNORMAL) Comprehensive Metabolic Panel (12/29/2024 10:18 AM EDT) Sodium 139 135 - 145 mmol/L [facility] Potassium 4.4 3.3 - 5.1 mmol/L [facility] Chloride 106 96 - 108 mmol/L [facility] Carbon Dioxide 26 22 - 29 mmol/L [facility] Anion Gap 11(L) 12 - 20 [facility] Urea Nitrogen (BUN) 11 9 - 16 mg/dL [facility] Creatinine, Serum 1.05 0.5 - 1.4 mg/dL [facility] Estimated Glomerular Filt Rate >60 [facility] Comment:Chronic Kidney Disea se: Estimated GFR < 60 mL/min/1.05q4Juyyhd Kidney Disease: Estimated GFR < 15 mL/min/1.73m2 Glucose 185(H) 60 - 115 mg/dL [facility] Calcium 9.4 8.4 - 10.2 mg/dL [facility] Bilirubin, Total 0.4 0.0 - 1.0 mg/dL [facility] Aspartate Amino Transferase 39(H) 5 - 37 U/L [facility] Alanine Aminotransferase 58(H) 0 - 40 U/L [facility] Total Protein 7.7 6.5 - 8.0 g/dL [facility] Albumin Level 4.8 3.5 - 5.0 g/dL [facility] Alkaline Phosphatase 58 39 - 117 U/L [facility] Blood Venous blood specimen / Unknown 12/29/2024 10:18 AM EDT 12/29/2024 11:09 AM EDT us Kasey Menjivar MD LAB BLOOD ORDERABLES Final Result [facility] [address] [place] [phone] * (ABNORMAL) POCT HGB A1C (12/29/2024 9:26 AM EDT) Pathologist [facility] Hemoglobin A1C 7.3(A) 4.0 - 5.7 % QC Media Lot # [id number] Lot# Expiration Date Blood 12/29/2024 9:26 AM EDT Result Zana Menjivar MD POINT OF CARE TEST ENTER/EDIT ORDERABLES Edited Result - Final * (ABNORMAL) POCT Glucose (12/29/2024 9:25 AM EDT) Pathologist [facility] Glucose Blood, POC 236(A) 60 - 200 mg/dL Comment:Fasting QC Media Lot # [id number] Lot# Expiration Date Blood Capillary blood specimen / Unknown 12/29/2024 9:25 AM EDT us Kasey Menjivar MD POINT OF CARE TEST ENTER/EDIT ORDERABLES Edited Result - Final * Hepatitis C Antibody with Reflex to HCV, RNA, Quantitative, Real-Time PCR (09/27/2024 2:12 PM EDT) [facility] Hepatitis C Antibody Nonreactive Nonreactive [facility] Comment:Antibodies to HCV no t detected; does not exclude early acuteHCV infection. Blood Venous blood specimen / Unknown 09/27/2024 2:12 PM EDT 09/27/2024 4:10 PM EDT Result Zana Menjivar MD LAB BLOOD ORDERABLES Final Result [facility] [address] [place] [phone] * HIV-1/2 Antigen and Antibodies, Fourth Generation, with Reflexes (09/27/2024 2:12 PM EDT) [facility] HIV AB/AG Nonreactive Nonreactive [facility] Comment:HIV-1 p24 Ag and/or HIV-1/HIV-2 Ab not detected.A test result that is nonreactive does not exclude thepossibility of exposure to or infection with HIV-1 and/orHIV-2. Nonreactive results in this assay for individualswith prior exposure to HIV-1 and/or HIV-2 may be due toantigen and antibody levels that are below the limit ofdetection of this assay.The [employer] HIV Ag/Ab Combo assay result andsupplemental assay results should be interpreted inconjunction with the patient's clinical presentation,history and other laboratory results. If the results areinconsistent with clinical evidence, additional testing issuggested to confirm the result. Blood Venous blood specimen / Unknown 09/27/2024 2:12 PM EDT 09/27/2024 4:10 PM EDT us Kasey Menjivar MD LAB BLOOD ORDERABLES Final Result [facility] [address] [place] [phone] * (ABNORMAL) Lipid Panel, Standard (09/27/2024 2:12 PM EDT) Triglycerides 84 <150 mg/dL [facility] Comment:Desirable Triglyceri de: less than 150 mg/dLBorderline High Triglyceride 150-199 mg/dLHigh Triglyceride: 200-499 mg/dLVery High Triglyceride: greater than or equal to 5OO mg/dL Cholesterol 99 <200 mg/dL [facility] Comment:Desirable Cholestero l: less than 200 mg/dLBorderline High Cholesterol: 200-239 mg/dLHigh Cholesterol: greater than 239 mg/dL LDL Cholesterol Calculated 43 <100 mg/dL [facility] Comment:Desirable LDL: less than 100 mg/dLNear Optimal/Above Optimal LDL: 110- 129 mg/dLBorderline High LDL: 130-159 mg/dLHigh LDL: 160-189 mg/dLVery High LDL: greater than or equal to 190 mg/dL HDL Cholesterol 40(L) >40 mg/dL [facility] Comment:Desirable HDL: great er than 40 mg/dL Note: This HDL assay may give artificially low results in patients with liver disease. Blood Venous blood specimen / Unknown 09/27/2024 2:12 PM EDT 09/27/2024 4:10 PM EDT Kasey Menjivar MD LAB BLOOD ORDERABLES Final Result [facility] [address] [place] [phone] from Last 3 Months or Most Recently Relevant to Health Maintenance Insurance [facility] < 65 [facility] Care Teams Diesel Plant Operator Relationship Specialty Start Date End Date Kaesy Rodriguez MD [address] [place] [address] PCP - General Internal Medicine 02/23/23 Robert Parkinson 06/12/23
--- OUTSIDE RECORDS SUMMARY | 2025-03-09 09:03 | XMS_ITS | Encounter Summary ---
Author Organization [employer] Address [address] [facility] [address] [place] [address] Care Team Providers Care Materials Planner Name Role Phone Kasey Rodriguez MD Primary Care Provide r Reason for Visit * Reason Comments Med Refill Encounter Details Date Type Department Care Team ([facility] Contact Info) Description 01/26/2024 Refill [facility] [address] [place], [place] [phone] Kasey Rodriguez MD [address] [place], [place] [phone] Chronic obstructive pulmonary disease, unspecified COPD type [...] Description 04/11/2025 9:00 AM EDT Office Visit [facility] [address] [place] [address] Kasey Rodriguez MD [address] [place] [address] documented as of this encounter Visit Diagnoses Diagnosis Chronic obstructive pulmonary disease, unspecified COPD type (CMS/HCC) documented in this encounter Additional Health Concerns Assessment Noted Time PHQ-9 Depression Total Score: 4 03/16/20 9:21 AM EDT documented as of this encounter Care Teams Materials Planner Relationship Specialty Start Date End Date Kasey Rodriguez MD [address] [place] [phone] PCP - General Internal Medicine 02/23/23 Robert Parkinson 06/12/23 documented as of this encounter
--- OUTSIDE RECORDS SUMMARY | 2025-03-09 09:03 | XMS_ITS | Encounter Summary ---
Author Organization [employer] Address [address] [facility] [address] [place] [address] Care Team Providers Care Gospel Worker Name Role Phone Kasey Rodriguez MD Primary Care Provide r Reason for Visit * Reason Comments Med Refill Encounter Details Date Type Department Care Team ([facility] Contact Info) Description 02/07/2025 Refill [facility] [address] [place], [place] [phone] Kasey Rodriguez MD [address] [place], [place] [phone] Essential hypertension Social History Tobacco Use Types [...] Description 04/11/2025 9:00 AM EDT Office Visit [facility] [address] [place] [address] Kasey Rodriguez MD [address] [place] [address] documented as of this encounter Visit Diagnoses Diagnosis Essential hypertension Unspecified essential hypertension documented in this encounter Additional Health Concerns Assessment Noted Time PHQ-9 Depression Total Score: 2 12/30/19 25 9:22 AM EDT documented as of this encounter Care Teams Gospel Worker Relationship Specialty Start Date End Date Kasey Rodriguez MD [address] [place] [address] PCP - General Internal Medicine 02/23/23 Robert Parkinson 06/12/23 documented as of this encounter
--- OUTSIDE RECORDS SUMMARY | 2025-03-09 09:03 | XMS_ITS | Encounter Summary ---
Author Organization [employer] Address [address] [facility] 7t [place] [address] Care Team Providers Care Maintenance Of Way Foreman Name Role Phone aKsey Rodriguez MD Primary Care Provide r Reason for Visit * Reason Onset Date Comments Med Refill 02/10/2025 Encounter Details Date Type Department Care Team ([facility] st Contact Info) Description 02/10/2025 Telephone [facility] MEDICINE [address] [place], [place] [phone] Kasey Rodriguez MD [address] [place] [address] Med Refill Social History Tobacco Use Types Packs/Day Years [...] encounter Miscellaneous Notes * Telephone Encounter - Patricia Hebert LPN - 02/10/2025 12:01 PM EDT Please review request medication not on active med list. * Telephone Encounter - Marilee Dial - 02/10/2025 11:55 AM EDT TC from pt requesting medication refill. Medications needing refill : - Flupcasone prop 50 mcg nasal pray To be sent to: - [facility] - [place], [place] - [address] [place] [address] [facility] contact at [phone] documented in this encounter Plan of Treatment Upcoming Encounters Date Type Department Care Team ([facility] st Contact Info) Description 04/11/2025 9:00 AM EDT Office Visit [facility] MEDICINE [address] [place] [phone] Kasey Rodriguez MD [address] [place] [address] documented as of this encounter Visit Diagnoses Not on filedocumented in this encounter Additional Health Concerns Assessment Noted Time PHQ-9 Depression Total Score: 2 12/30/19 25 9:22 AM EDT documented as of this encounter Care Teams Maintenance Of Way Foreman Relationship Specialty Start Date End Date Kasey Rodriguez MD [address] [place] [address] PCP - General Internal Medicine 02/23/23 Robert Parkinson 06/12/23 documented as of this encounter
--- OUTSIDE RECORDS SUMMARY | 2025-03-09 09:03 | XMS_ITS | Encounter Summary ---
Author Organization [employer] Address [address] [facility] 7t [place] [address] Care Team Providers Care Sub Assembly Team Worker Name Role Phone Kasey Rodriguez MD Primary Care Provide r Reason for Visit * Reason Comments Med Refill Encounter Details Date Type Department Care Team ([facility] st Contact Info) Description 03/16/2024 Refill [facility] MEDICINE [address] [place], [place] [phone] Kasey Rodriguez MD [address] [place], [place] [phone] Essential hypertension Social History Tobacco Use Types [...] Description 04/11/2025 9:00 AM EDT Office Visit [facility] MEDICINE [address] [place] [address] Kasey Rodriguez MD [address] [place] [address] documented as of this encounter Visit Diagnoses Diagnosis Essential hypertension Unspecified essential hypertension documented in this encounter Additional Health Concerns Assessment Noted Time PHQ-9 Depression Total Score: 4 03/16/20 23 9:21 AM EDT documented as of this encounter Care Teams Sub Assembly Team Worker Relationship Specialty Start Date End Date Kasey Rodriguez MD [address] [place] [id number] PCP - General Internal Medicine 02/23/23 Robert Caring 06/12/23 documented as of this encounter
--- OUTSIDE RECORDS SUMMARY | 2025-03-31 20:00 | XMS_ITS | Clinical Summary ---
Author Organization Unknown Care Team Providers Care Step Finisher Name Role Phone HOMAR BALLARD MD, SERJIO Unavailable Clover SALCIDO RN, ARIANNA Unavailable Unavailable STEPHEN ENCINAS, DAVID Unavailable Unavailable Payers Payer Name Policy Type Policy Number Effective Date Expira tion Date [facility] [id number] MEDICAID [place] - AB[place] [id number] MEDICARE - [facility]/[place] - [facility] [id number] Problems Condition Name Condition Details Condition Category [...] mg/mL eye drops 2022-06 00:00: 00 Yes [id number] 1 drops TWICE DAILY 1 drops TWICE DAILY (route: ophthalmic (eye)) Med Classific ation: Ophthalmi c Agents Ventolin HFA 90 mcg/actuati on aerosol inhaler 2022-06 00:00: 00 Yes [id number] Unavailable 2 puff EVERY 4 HOURS 2 puff EVERY 4 HOURS (route: inhalation ) Med Classific ation: Respirato ry Therapy Agents lisinopril 10 mg tablet 2022-06 00:00: 00 Yes [id number] Unavailable 10 mg EVERY DAY 10 mg EVERY DAY (route: oral) Med Classific ation: Cardiovas cular Therapy Agents verapamil ER (PM) 100 mg capsule 24hr pellet CT,ext.rele ase 2022-06 00:00: 00 09-13 23:59 :00 No [id number] 100 mg AT BEDTIME 100 mg AT BEDTIME (route: oral) Med Classific ation: Cardiovas cular Therapy Agents clonazepam 2 mg tablet 2022-06 00:00: 00 01-30 23:59 :00 No [id number] 2 mg AT BEDTIME 2 mg AT BEDTIME (route: oral) Med Classific ation: Central Nervous System Agents duloxetine 60 mg capsule,del ayed release 2022-06 00:00: 00 Yes [id number] 60 mg EVERY AM 60 mg EVERY AM (route: oral) Med Classific ation: Central Nervous System Agents trazodone 150 mg tablet 2022-06 00:00: 00 Yes [id number] 150 mg AT BEDTIME NEEDED 150 mg AT BEDTIME NEEDED (route: oral) Med Classific ation: Central Nervous System Agents aspirin 81 mg tablet,yaa yed release 2022-06 00:00: 00 Yes [id number] 81 mg EVERY AM 81 mg EVERY AM (route: oral) Med Classific ation: Hematolog ical Agents Flomax 0.4 mg capsule 2022-06 00:00: 00 01-30 23:59 :00 No [id number] 0.4 mg BEDTIME 0.4 mg BEDTIME (route: oral) Med Classific ation: Genitouri nary Therapy Galzin 50 mg (zinc) capsule 2022-06 00:00: 00 09-13 23:59 :00 No [id number] 50 mg DAILY 50 mg DAILY (route: oral) Med Classific ation: Antidotes and other Reversal Agents glipizide 5 mg tablet 2022-06 00:00: 00 Yes [id number] 5 mg EVERY AM 5 mg EVER Y AM (route: oral) Med Classific ation: Endocrine loratadine 10 mg tablet 2022-06 00:00: 00 Yes [id number] 10 mg EVERY AM 10 mg EVERY AM (route: oral) Med Classific ation: Respirato ry Therapy Agents montelukast 10 mg tablet 2022-06 00:00: 00 09-13 23:59 :00 No [id number] 10 mg BEDTIME 10 mg BEDTIME (route: oral) Med Classific ation: Respirato ry Therapy Agents omeprazole 20 mg tablet,yaa yed release 2022-06 00:00: 00 09-13 23:59 :00 No [id number] 20 mg 2 TIMES DAILY 20 mg 2 TIMES DAILY (route: oral) Med Classific ation: Gastroint estinal Therapy Agents ropinirole 0.5 mg tablet 2022-06 00:00: 00 09-13 23:59 :00 No [id number] 0.5 mg BEDTIME 0.5 mg BEDTIME (route: oral) Med Classific ation: Central Nervous System Agents rosuvastati n 40 mg tablet 2022-06 00:00: 00 Yes [id number] 40 mg BEDTIME 40 mg BEDTIME (route: oral) Med Classific ation: Cardiovas cular Therapy Agents vitamin A 2,400 mcg capsule 2022-06 00:00: 00 09-13 23:59 :00 No [id number] 2400 mcg DAILY 2400 mcg DAILY (route: oral) Med Classific ation: Electroly te Balance-N utritiona l Products Vitamin C 1,000 mg tablet 2022-06 00:00: 00 09-13 23:59 :00 No [id number] 1000 mg EVERY AM 1000 mg EVERY AM (route: oral) Med Classific ation: Electroly te Balance-N utritiona l Products Vitamin D3 50 mcg (2,000 unit) capsule 2022-06 00:00: 09-13 23:59 :00 No [id number] 50 mcg EVERY AM 50 mcg EVERY AM (route: oral) Med Classific ation: Electroly te Balance-N utritiona l Products vitamin E 268 mg (400 unit) capsule 2022-06 00:00: 00 09-13 23:59 :00 No [id number] 268 mg DAILY 268 mg DAILY (route: oral) Med Classific ation: Electroly te Balance-N utritiona l Products quetiapine 50 mg tablet 09-13 00:00: 00 01-30 23:59 :00 No [id number] 50 mg BEDTIME 50 mg BEDTIME (route: oral) Med Classific ation: Central Nervous System Agents fluticasone propionate 250 mcg/actuati on blister powder for inhalation 02-28 00:00: 00 Yes [id number] 1 inhalat ion 2 TIMES DAILY 1 inhalation 2 TIMES DAILY (route: inhalation ) Med Classific ation: Respirato ry Therapy Agents Vital Signs Vital Name Observation Time Observation Value Commen ts Temperature 2025-03-08 09:09:00.000 98.6 [degF] Temperature 2025-03-07 09:09:00.000 98.6 [degF] Temperature 2025-03-06 17:38:00.000 98.6 [degF] Temperature 2025-03-03 16:18:00.000 98.6 [degF] Temperature 2025-03-02 11:18:00.000 98.6 [degF] Temperature 2025-03-01 10:49:00.000 98.6 [degF] Temperature 2025-02-28 08:40:00.000 98.6 [degF] Temperature 2025-02-27 09:42:00.000 98.6 [degF] Temperature 2025-02-24 21:19:00.000 98.6 [degF] Temperature 2025-02-23 17:42:00.000 98.6 [degF] Temperature 2025-02-22 12:29:00.000 98.6 [degF] Temperature 2025-02-21 12:05:00.000 98.6 [degF] Temperature 2025-02-20 12:46:00.000 98.6 [degF] Temperature 2025-02-17 11:21:00.000 98.6 [degF] Temperature 2025-02-16 12:01:00.000 98.6 [degF] Temperature 2025-02-15 12:41:00.000 98.6 [degF] Temperature 2025-02-14 14:52:00.000 98.6 [degF] Temperature 2025-02-10 11:42:00.000 98.6 [degF] Temperature 2025-02-09 11:22:00.000 98.6 [degF] Temperature 2025-02-08 11:06:00.000 98.6 [degF] Temperature 2025-02-07 11:05:00.000 98.6 [degF] Temperature 2025-02-06 11:07:00.000 98.6 [degF] Temperature 2025-02-03 11:16:00.000 98.6 [degF] Temperature 2025-02-02 19:56:00.000 98.6 [degF] Temperature 2025-02-01 11:17:00.000 98.6 [degF] Pulse 2025-03-08 09:09:00.000 79 /min Pulse 2025-03-07 09:09:00.000 88 /min Pulse 2025-03-06 17:38:00.000 82 /min Pulse 2025-03-03 16:18:00.000 81 /min Pulse 2025-03-02 11:18:00.000 72 /min Pulse 2025-03-01 10:49:00.000 82 /min Pulse 2025-02-28 08:40:00.000 82 /min Pulse 2025-02-27 09:42:00.000 82 /min Pulse 2025-02-24 21:19:00.000 82 /min Pulse 2025-02-23 17:42:00.000 82 /min Pulse 2025-02-22 12:29:00.000 82 /min Pulse 2025-02-21 12:05:00.000 88 /min Pulse 2025-02-20 12:46:00.000 82 /min Pulse 2025-02-17 11:21:00.000 82 /min Pulse 2025-02-16 12:01:00.000 88 /min Pulse 2025-02-15 12:41:00.000 78 /min Pulse 2025-02-14 14:52:00.000 82 /min Pulse 2025-02-10 11:42:00.000 82 /min Pulse 2025-02-09 11:22:00.000 76 /min Pulse 2025-02-08 11:06:00.000 82 /min Pulse 2025-02-07 11:05:00.000 82 /min Pulse 2025-02-06 11:07:00.000 82 /min Pulse 2025-02-03 11:16:00.000 82 /min Pulse 2025-02-02 19:56:00.000 82 /min Pulse 2025-02-01 11:17:00.000 73 /min O2 Saturation (%) 2025-03-03 16:18:00.000 98 % O2 Saturation (%) 2025-02-27 09:42:00.000 98 % Respirations 2025-03-08 09:09:00.000 20 /min Respirations 2025-03-07 09:09:00.000 20 /min Respirations 2025-03-06 17:38:00.000 20 /min Respirations 2025-03-03 16:18:00.000 20 /min Respirations 2025-03-02 11:18:00.000 20 /min Respirations 2025-03-01 10:49:00.000 20 /min Respirations 2025-02-28 08:40:00.000 20 /min Respirations 2025-02-27 09:42:00.000 20 /min Respirations 2025-02-24 21:19:00.000 20 /min Respirations 2025-02-23 17:43:00.000 20 /min Respirations 2025-02-22 12:29:00.000 20 /min Respirations 2025-02-21 12:05:00.000 20 /min Respirations 2025-02-20 12:46:00.000 20 /min Respirations 2025-02-17 11:21:00.000 20 /min Respirations 2025-02-16 12:02:00.000 20 /min Respirations 2025-02-15 12:41:00.000 20 /min Respirations 2025-02-14 14:52:00.000 20 /min Respirations 2025-02-10 11:42:00.000 20 /min Respirations 2025-02-09 11:22:00.000 20 /min Respirations 2025-02-08 11:06:00.000 20 /min Respirations 2025-02-07 11:05:00.000 20 /min Respirations 2025-02-06 11:07:00.000 20 /min Respirations 2025-02-03 11:16:00.000 20 /min Respirations 2025-02-02 19:56:00.000 20 /min Respirations 2025-02-01 11:17:00.000 20 /min Weight (lbs) 2025-02-27 09:42:00.000 224 [lb_av] Weight (lbs) 2025-02-21 12:13:00.000 224 [lb_av] Weight (lbs) 2025-02-01 11:20:00.000 224 [lb_av] Systolic Blood Pressure 2025-03-08 09:09:00.000 122 mm [Hg] Systolic Blood Pressure 2025-03-07 09:09:00.000 142 mm [Hg] Systolic Blood Pressure 2025-03-06 17:38:00.000 142 mm [Hg] Systolic Blood Pressure 2025-03-03 16:18:00.000 127 mm [Hg] Systolic Blood Pressure 2025-03-02 11:18:00.000 119 mm [Hg] Systolic Blood Pressure 2025-03-01 10:49:00.000 138 mm [Hg] Systolic Blood Pressure 2025-02-28 08:40:00.000 117 mm [Hg] Systolic Blood Pressure 2025-02-27 09:42:00.000 119 mm [Hg] Systolic Blood Pressure 2025-02-24 21:19:00.000 142 mm [Hg] Systolic Blood Pressure 2025-02-23 17:42:00.000 142 mm [Hg] Systolic Blood Pressure 2025-02-22 12:29:00.000 138 mm [Hg] Systolic Blood Pressure 2025-02-21 12:05:00.000 127 mm [Hg] Systolic Blood Pressure 2025-02-20 12:46:00.000 142 mm [Hg] Systolic Blood Pressure 2025-02-17 11:21:00.000 142 mm [Hg] Systolic Blood Pressure 2025-02-16 12:01:00.000 140 mm [Hg] Systolic Blood Pressure 2025-02-15 12:41:00.000 120 mm [Hg] Systolic Blood Pressure 2025-02-14 14:52:00.000 142 mm [Hg] Systolic Blood Pressure 2025-02-10 11:42:00.000 172 mm [Hg] Systolic Blood Pressure 2025-02-09 11:22:00.000 172 mm [Hg] Systolic Blood Pressure 2025-02-08 11:06:00.000 142 mm [Hg] Systolic Blood Pressure 2025-02-07 11:05:00.000 142 mm [Hg] Systolic Blood Pressure 2025-02-06 11:07:00.000 128 mm [Hg] Systolic Blood Pressure 2025-02-03 11:16:00.000 172 mm [Hg] Systolic Blood Pressure 2025-02-02 19:56:00.000 142 mm [Hg] Systolic Blood Pressure 2025-02-01 11:17:00.000 136 mm [Hg] Diastolic Blood Pressure 2025-03-08 09:09:00.000 76 mm [Hg] Diastolic Blood Pressure 2025-03-07 09:09:00.000 89 mm [Hg] Diastolic Blood Pressure 2025-03-06 17:38:00.000 88 mm [Hg] Diastolic Blood Pressure 2025-03-03 16:18:00.000 74 mm [Hg] Diastolic Blood Pressure 2025-03-02 11:18:00.000 78 mm [Hg] Diastolic Blood Pressure 2025-03-01 10:49:00.000 78 mm [Hg] Diastolic Blood Pressure 2025-02-28 08:40:00.000 75 mm [Hg] Diastolic Blood Pressure 2025-02-27 09:42:00.000 74 mm [Hg] Diastolic Blood Pressure 2025-02-24 21:19:00.000 82 mm [Hg] Diastolic Blood Pressure 2025-02-23 17:42:00.000 82 mm [Hg] Diastolic Blood Pressure 2025-02-22 12:29:00.000 88 mm [Hg] Diastolic Blood Pressure 2025-02-21 12:05:00.000 76 mm [Hg] Diastolic Blood Pressure 2025-02-20 12:46:00.000 88 mm [Hg] Diastolic Blood Pressure 2025-02-17 11:21:00.000 78 mm [Hg] Diastolic Blood Pressure 2025-02-16 12:01:00.000 78 mm [Hg] Diastolic Blood Pressure 2025-02-15 12:41:00.000 75 mm [Hg] Diastolic Blood Pressure 2025-02-14 14:52:00.000 78 mm [Hg] Diastolic Blood Pressure 2025-02-10 11:42:00.000 72 mm [Hg] Diastolic Blood Pressure 2025-02-09 11:22:00.000 78 mm [Hg] Diastolic Blood Pressure 2025-02-08 11:06:00.000 78 mm [Hg] Diastolic Blood Pressure 2025-02-07 11:05:00.000 82 mm [Hg] Diastolic Blood Pressure 2025-02-06 11:07:00.000 78 mm [Hg] Diastolic Blood Pressure 2025-02-03 11:16:00.000 78 mm [Hg] Diastolic Blood Pressure 2025-02-02 19:56:00.000 88 mm [Hg] Diastolic Blood Pressure 2025-02-01 11:17:00.000 80 mm [Hg] Plan of Treatment Planned Activity [...] SKILLED NU RSE TO PRE-POUR MEDICATION PER MD MEDICATION LIST. [code = SKILLED NURSE TO PRE-POUR MEDICATION PER MD MEDICATION LIST.] Future Scheduled Test SKILLED NU RSE TO O/A OF PATIENTS MENTAL/BEHAVIORAL STATUS, ASSESS VITAL SIGNS EVERY VISIT ALLOW 2 PRNS FOR MEDICATION MANAGEMENT. [code = SKILLED NURSE TO O/A OF PATIENTS MENTAL/BEHAVIORAL STATUS, ASSESS VITAL SIGNS EVERY VISIT ALLOW 2 PRNS FOR MEDICATION MANAGEMENT.] Future Scheduled Test SKILLED NU RSE FOR O/A OF ALTERED THOUGHT PROCESS AND/OR DISRUPTION IN COGNITIVE OPERATIONS AND ACTIVITIES. [code = SKILLED NURSE FOR O/A OF ALTERED THOUGHT PROCESS AND/OR DISRUPTION IN COGNITIVE OPERATIONS AND ACTIVITIES.] Future Scheduled Test SKILLED NU RSE FOR O/A OF GENERAL HEALTH STATUS OF PAIN, CARDIAC, RESPIRATORY, GASTROINTESTINAL, GENITOURINARY, SKIN, NEUROLOGIC, ENDOCRINE SYSTEMS TO IDENTIFY CHANGES ASSOCIATED WITH EXACERBATION FOR EARLY INTERVENTION OF COMPLICATIONS EVERY VISIT [code = SKILLED NURSE FOR O/A OF GENERAL HEALTH STATUS OF PAIN, CARDIAC, RESPIRATORY, GASTROINTESTINAL, GENITOURINARY, SKIN, NEUROLOGIC, ENDOCRINE SYSTEMS TO IDENTIFY CHANGES ASSOCIATED WITH EXACERBATION FOR EARLY INTERVENTION OF COMPLICATIONS EVERY VISIT] Future Scheduled Test SKILLED NU RSE FOR [...] REPORT.] Future Scheduled Test SKILLED NU RSE FOR O/A OF RESPIRATORY SYSTEM TO IDENTIFY CHANGES ASSOCIATED WITH EXACERBATION AND TO PROVIDE SKILLED TEACHING ON MANAGEMENT OF ASTHMA RESPIRATORY DISEASE PROCESS. [code = SKILLED NURSE FOR O/A OF RESPIRATORY SYSTEM TO IDENTIFY CHANGES ASSOCIATED WITH EXACERBATION AND TO PROVIDE SKILLED TEACHING ON MANAGEMENT OF ASTHMA RESPIRATORY DISEASE PROCESS.] Future Scheduled Test SKILLED NU RSE FOR O/A, TEACHING RELATED TO GERD CONSTIPATION(SPECIFY GASTROINTESTINAL DISEASE) FOR EARLY IDENTIFICATION OF EXACERBATION OF DISEASE PROCESS. [code = SKILLED NURSE FOR O/A, TEACHING RELATED TO GERD CONSTIPATION(SPECIFY GASTROINTESTINAL DISEASE) FOR EARLY IDENTIFICATION OF EXACERBATION OF DISEASE PROCESS.] Future Scheduled Test PATIENT GUY S A [...] PROBLEMS.] Future Scheduled Test SKILLED NU RSE TO ASSESS PATIENT S PSYCHOSOCIAL STATUS TO IDENTIFY POTENTIAL ISSUES THAT MAY COMPLICATE THE PROVISION OF THE PLAN OF CARE INCLUDING THE PATIENT S ABILITY TO ACCESS COMMUNITY RESOURCES AND PSYCHOSOCIAL SUPPORT SERVICES. [code = SKILLED NURSE TO ASSESS PATIENT S PSYCHOSOCIAL STATUS TO IDENTIFY POTENTIAL ISSUES THAT MAY COMPLICATE THE PROVISION OF THE PLAN OF CARE INCLUDING THE PATIENT S ABILITY TO ACCESS COMMUNITY RESOURCES AND PSYCHOSOCIAL SUPPORT SERVICES.] Future Scheduled Test SKILLED NU RSE WILL MAINTAIN SITUATIONAL AWARENESS FOR SAFETY AND WILL NOTIFY CLINICAL VICE PRESIDENT CORPORATE COMMUNICATIONS AND PHYSICIAN/PROVIDER WITH ANY CHANGE IN CONDITION. [code = SKILLED NURSE WILL MAINTAIN SITUATIONAL AWARENESS FOR SAFETY AND WILL NOTIFY CLINICAL VICE PRESIDENT CORPORATE COMMUNICATIONS AND PHYSICIAN/PROVIDER WITH ANY CHANGE IN CONDITION.] Future Scheduled Test MEDICATION S WILL BE HELD AND STORED IN MEDICATION SAFE. [code = MEDICATIONS WILL BE HELD AND STORED IN MEDICATION SAFE.] Goal 2023-08-06 Patient Goal - T AKING [...] MY MEDS AND NO DRINKING ALCOHOL Goal 2025-01-30 Patient Goal - T AKING MY MEDS [...] CARE WILL BE ESTABLISHED THAT MEETS PATIENT'S ASSISTED NEEDS AND INCLUDES PATIENT GOAL FOR HOME HEALTH. Goal Provider Goal - PATIENT WILL COMPLY [...] THROUGHOUT CERTIFICATION PERIOD. Goal Provider Goal - CHANGE [...] Goal Provider Goal - PATIENT/CAREGIVER WILL VERBALIZE/DEMONSTRATE MANAGEMENT OF RESPIRATORY DISEASE PROCESS. CHANGES IN RESPIRATORY STATUS WILL BE IDENTIFIED AND REPORTED TO PHYSICIAN FOR PROMPT INTERVENTION THROUGHOUT THE CERTIFICATION PERIOD. Goal Provider Goal - EXACERBATIONS OF GASTROINTESTINAL DISEASE WILL BE PROMPTLY IDENTIFIED AND INTERVENTIONS IMPLEMENTED TO MINIMIZE RISKS TO PATIENT BY END OF EPISODE. Goal Provider Goal - PATIENT WILL HAVE SUPPORT MEASURES ESTABLISHED TO PREVENT HOSPITALIZATION AND ED USE AND PATIENT/CAREGIVER WILL VERBALIZE/DEMONSTRATE METHODS TO REDUCE AVOIDABLE HOSPITALIZATION AND ED USE BY END OF EPISODE. Goal Provider Goal - PATIENT/CAREGIVER WILL VERBALIZE UNDERSTANDING OF EDUCATION PROVIDED ON MEDICATIONS BY THE END OF THE CERTIFICATION PERIOD. Goal Provider Goal - PSYCHOSOCIAL NEEDS WILL BE IDENTIFIED AND PLAN IMPLEMENTED TO MINIMIZE RISK THROUGHOUT CERTIFICATION PERIOD. Goal Provider Goal - PATIENT WILL REMAIN SAFE IN THE COMMUNITY AND WILL BE FREE OF DANGER TO SELF AND OTHERS THROUGHOUT THE CERTIFICATION PERIOD. Goal Provider Goal - MEDICATIONS WILL BE STORED IN MEDICATION SAFE FOR SAFETY. Encounters Start Date/Time End Date/Time Encounter Type Admission Type Attending [facility] Care Department Encounter ID Discharge Date Discharge Status Discharge Condition Discharge Reason Percent Goals Met 2025-02-01 00:00:00 2025-04-01 00:00:00 Outpatient RECERTIFIC [facility] [id number] [id number]
== END 2025-03-09 09:12 | disposition home or self-care (01) ==
LOC: HO.HUSH 08:29
PROVIDERS: PCP Internal Medicine; Visit Provider Nurse Practitioner Family
DX: N52.9 Male erectile dysfunction, unspecified (principal)
CPT/HCPCS: 99204

== ENCOUNTER → 2025-03-09 08:29 | Outpatient (BNVA) | payer OTHER, SELFPAY | PROVIDERS: PCP Internal Medicine; Visit Provider Nurse Practitioner Family | DX: N52.9 Male erectile dysfunction, unspecified (principal) | CPT/HCPCS: 99202 ==

== ENCOUNTER 2025-04-17 07:32 | Outpatient (AMB) | payer OTHER, SELFPAY ==
--- OUTSIDE RECORDS SUMMARY | 2024-01-11 04:00 | XMS_ITS ---
Author Organization [facility] Address [address] [place] [phone] Care Team Providers Care Cheese Weigher Name Role Phone Chandni Ospina Primary Care Provider Torin Sarmiento Unavailable [phone] REASON FOR VISIT for sooner apt Encounters Encounter Location Date Provider Diagnosis [address] [address] 01/11/2024 Torin Acosta Plan Of Treatment No Information Progress Notes * Claribel MITCHELLOB:1965 ( 60 yo M)Acc No.[id number]:01/11/2024 Progress Note Patient: Milind GANDHI Provider: Georgina Jones DPM :1965 A ge:58 Y S ex:Male Date:01/11/2024 Address:[address] [place], [place] [id number] Pcp:Chandni Ospina Subjective: * Chief Complaints: * [...] 0 01/11/2024 Generated for Autumni ng/Faamandag/eTransmitting on: 06/17/2024 07:34 AM EST
--- OUTSIDE RECORDS SUMMARY | 2025-04-17 07:34 | XMS_ITS | Encounter Summary ---
Author Organization [email or web address] [facility] Address [address] [facility] 7t [place] [address] Care Team Providers Care Supervisor Beam Department Name Role Phone Kasey Rodriguez MD Primary Care Provide r Encounter Details Date Type Department Care Team (Latest Contact Info) Description 10/22/2020 Abstract [facility] CONVERSIONS Dental, Provider, DDS Social History Tobacco [...] Care Team (Late st Contact Info) Description 07/05/2025 9:00 AM EST Office Visit [facility] MEDICINE [address] [place] [address] Kasey Rodriguez MD [address] [place] [address] documented as of this encounter Visit Diagnoses Not on filedocumented in this encounter Care Teams Supervisor Beam Department Relationship Specialty Start Date End Date Kasey Rodriguez MD [address] [place] [address] [phone] PCP - General Internal Medicine 02/23/23 Robert Parkinson 06/12/23 documented as of this encounter
--- OUTSIDE RECORDS SUMMARY | 2025-04-17 07:34 | XMS_ITS | Encounter Summary ---
Author Organization [employer] [facility] Address [address] [facility] 7t [place] [address] Care Team Providers Care Buggyman Name Role Phone Kasey Rodriguez MD Primary Care Provide r Encounter Details Date Type Department Care Team (Latest Contact Info) Description 10/01/2018 Abstract [facility] CONVERSIONS Dental, Provider, DDS Social History Tobacco [...] Description 07/05/2025 9:00 AM EST Office Visit [facility] MEDICINE [address] [place] [address] Kasey Rodriguez MD [address] [place] [address] documented as of this encounter Visit Diagnoses Not on filedocumented in this encounter Care Teams Buggyman Relationship Specialty Start Date End Date Kasey Rodriguez MD [address] [place] [address] [phone] PCP - General Internal Medicine 02/23/23 Robert Parkinson 06/12/23 documented as of this encounter
--- OUTSIDE RECORDS SUMMARY | 2025-04-17 07:34 | XMS_ITS | Encounter Summary ---
Author Organization [email or web address] Address [address] [facility] [address] [facility] [address] [place] [address] Care Team Providers Care Book Agent Name Role Phone Kasey Rodriguez MD Primary Care Provide r Reason for Visit * Reason Comments [facility] Encounter Details Date Type Department Care Team ([facility] st Contact Info) Description 04/13/2025 Patient Outreach [facility] MEDICINE [address] [place] [address] Kavon Trejo Recovery Supports Social History Tobacco Use Types Packs/Day Years [...] AM EDT documented as of this encounter Progress Notes * Kavon Trejo - 04/13/2025 2:24 PM EDT I met with Milind today. Setting: in person at [facility] Recovery Wellness Goals worked on: Social Stability Action taken/next steps: Attended alcohol and drug free activity Additional comments: Kavon Trejo documented in this encounter Plan of Treatment Upcoming Encounters Date Type Department Care Team (Late st Contact Info) Description 07/05/2025 9:00 AM EST Office Visit [facility] MEDICINE [address] [place] [phone] Kasey Rodriguez MD [address] [place] [address] documented as of this encounter Visit Diagnoses Not on filedocumented in this encounter Additional Health Concerns Assessment Noted Time PHQ-9 Depression Total Score: 2 12/30/19 25 9:22 AM EDT documented as of this encounter Care Teams Book Agent Relationship Specialty Start Date End Date Kasey Rodriguez MD [address] [place] [phone] PCP - General Internal Medicine 02/23/23 Robert Parkinson 06/12/23 documented as of this encounter
--- OUTSIDE RECORDS SUMMARY | 2025-04-17 07:34 | XMS_ITS | Encounter Summary ---
Author Organization [employer] Address [address] [facility] 7t [place] [address] Care Team Providers Care Log Deck Tender Name Role Phone Kasey Rodriguez MD Primary Care Provide r Reason for Visit * Reason Comments Med Refill Encounter Details Date Type Department Care Team ([facility] Contact Info) Description 05/10/[address] [facility] MEDICINE [address] [place], [place] [phone] Kasey Rodriguez MD [address] [place], [place] [phone] Type 2 diabetes mellitus with hyperglycemia, without long-term current use of insulin ([facility]); Chronic obstructive pulmonary disease, unspecified COPD type ([facility]) Social History Tobacco Use Types Packs/Day Years [...] with others, in a hotel, in a chcf, living outside on the street, on a [...] Description 07/05/2025 9:00 AM EST Office Visit [facility] MEDICINE [address] [place] [address] Kasey Rodriguez MD [address] [place] [address] documented as of this encounter Visit Diagnoses Diagnosis Type 2 diabetes mellitus with hyperglycemia, without long-term current use of insulin (HCC) Chronic obstructive pulmonary disease, unspecified COPD type (CMS/HCC) (HCC) documented in this encounter Additional Health Concerns Assessment Noted Time PHQ-9 Depression Total Score: 4 03/16/20 23 9:21 AM EDT documented as of this encounter Care Teams Log Deck Tender Relationship Specialty Start Date End Date Kasey Rodriguez MD [address] [place] [address] PCP - General Internal Medicine 02/23/23 Robert Parkinson 06/12/23 documented as of this encounter
--- OUTSIDE RECORDS SUMMARY | 2025-04-17 07:34 | XMS_ITS | Encounter Summary ---
Author Organization [employer] Address [address] [facility] 7t [place] [address] Care Team Providers Care Sealing Machine Operator Name Role Phone Kasey Rodriguez MD Primary Care Provide r Reason for Visit * Reason Comments Med Refill Encounter Details Date Type Department Care Team ([facility] Contact Info) Description 05/11/2024 Refill [facility] MEDICINE [address] [place], [place] [phone] Kasey Rodriguez MD [address] [place], [place] [phone] Type 2 diabetes mellitus with hyperglycemia, without long-term current use of insulin ([facility]); Chronic obstructive pulmonary disease, unspecified COPD type ([facility]) Social History Tobacco Use Types Packs/Day Years [...] Description 07/05/2025 9:00 AM EST Office Visit [facility] MEDICINE [address] [place] [address] Kasey Rodriguez MD [address] [place] [address] documented as of this encounter Visit Diagnoses Diagnosis Type 2 diabetes mellitus with hyperglycemia, without long-term current use of insulin (HCC) Chronic obstructive pulmonary disease, unspecified COPD type (CMS/HCC) (HCC) documented in this encounter Additional Health Concerns Assessment Noted Time PHQ-9 Depression Total Score: 4 03/16/20 23 9:21 AM EDT documented as of this encounter Care Teams Sealing Machine Operator Relationship Specialty Start Date End Date Kasey Rodriguez MD [address] [place] [address] PCP - General Internal Medicine 02/23/23 Robert Parkinson 06/12/23 documented as of this encounter
--- OUTSIDE RECORDS SUMMARY | 2025-04-17 07:34 | XMS_ITS | Encounter Summary ---
Author Organization [employer] Address [address] [facility] 7t [place] [address] Care Team Providers Care Geriatric Care Manager Name Role Phone Kasey Rodriguez MD Primary Care Provide r Reason for Visit * Reason Comments Med Refill Encounter Details Date Type Department Care Team ([facility] Contact Info) Description 04/15/2024 Refill [facility] MEDICINE [address] [place], [place] [phone] Kasey Rodriguez MD [address] [place], [place] [phone] Social History Tobacco Use Types Packs/Day Years [...] Description 07/05/2025 9:00 AM EST Office Visit [facility] MEDICINE [address] [place] [phone] Ksaey Rodriguez MD [address] [place] [address] documented as of this encounter Visit Diagnoses Not on filedocumented in this encounter Additional Health Concerns Assessment Noted Time PHQ-9 Depression Total Score: 4 03/16/20 23 9:21 AM EDT documented as of this encounter Care Teams Geriatric Care Manager Relationship Specialty Start Date End Date Kasey Rodriguez MD [address] [place] [id number] PCP - General Internal Medicine 02/23/23 Robert Parkinson 06/12/23 documented as of this encounter
--- OUTSIDE RECORDS SUMMARY | 2025-04-17 07:34 | XMS_ITS | Encounter Summary ---
Author Organization [employer] Address [address] [facility] 7t [place] [address] Care Team Providers Care Puff Iron Operator Name Role Phone Kasey Rodriguez MD Primary Care Provide r Reason for Visit * Reason Comments Med Refill Encounter Details Date Type Department Care Team ([facility] Contact Info) Description 04/13/2024 Refill [facility] MEDICINE [address] [place], [place] [phone] Kasey Rodriguez MD [address] [place], [place] [phone] Social History Tobacco Use Types Packs/Day Years [...] with others, in a hotel, in a residential, living outside on the street, on a [...] Description 07/05/2025 9:00 AM EST Office Visit [facility] MEDICINE [address] [place] [phone] Kasey Rodriguez MD [address] [place] [address] documented as of this encounter Visit Diagnoses Not on filedocumented in this encounter Additional Health Concerns Assessment Noted Time PHQ-9 Depression Total Score: 4 03/16/20 23 9:21 AM EDT documented as of this encounter Care Teams Puff Iron Operator Relationship Specialty Start Date End Date Kasey Rodriguez MD [address] [place] [id number] PCP - General Internal Medicine 02/23/23 Robert Parkinson 06/12/23 documented as of this encounter
--- OUTSIDE RECORDS SUMMARY | 2025-04-17 07:34 | XMS_ITS | Encounter Summary ---
Author Organization [employer] Address [address] [facility] 7t [place] [address] Care Team Providers Care Supervisor Customer Complaint Service Name Role Phone Kasey Rodriguez MD Primary Care Provide r Reason for Visit * Reason Comments Med Refill Encounter Details Date Type Department Care Team ([facility] Contact Info) Description 04/13/2024 Refill [facility] MEDICINE [address] [place], [place] [phone] Kasey Rodriguez MD [address] [place], [place] [phone] Social History Tobacco Use Types Packs/Day Years [...] with others, in a hotel, in a long term, living outside on the street, on a [...] Description 07/05/2025 9:00 AM EST Office Visit [facility] MEDICINE [address] [place] [address] Kasey Rodriguez MD [address] [place] [address] documented as of this encounter Visit Diagnoses Not on filedocumented in this encounter Additional Health Concerns Assessment Noted Time PHQ-9 Depression Total Score: 4 03/16/20 23 9:21 AM EDT documented as of this encounter Care Teams Supervisor Customer Complaint Service Relationship Specialty Start Date End Date Kasey Rodriguez MD [address] [place] [phone] PCP - General Internal Medicine 02/23/23 Robert Parkinson 06/12/23 documented as of this encounter
--- OUTSIDE RECORDS SUMMARY | 2025-04-17 07:34 | XMS_ITS | Encounter Summary ---
Author Organization [employer] Address [address] [facility] 7t [place] [address] Care Team Providers Care Screen Printing Stencil Preparer Name Role Phone Kasey Rodriguez MD Primary Care Provide r Reason for Visit * Reason Comments Med Refill Encounter Details Date Type Department Care Team ([facility] Contact Info) Description 04/14/2024 Refill [facility] MEDICINE [address] [place], [place] [phone] Kasey Rodriguez MD [address] [place], [place] [phone] Social History Tobacco Use Types Packs/Day Years [...] others, in a hotel, in a senior care, living outside on the street, on a [...] Description 07/05/2025 9:00 AM EST Office Visit [facility] MEDICINE [address] [place] [phone] Kasey Rodriguez MD [address] [place] [address] documented as of this encounter Visit Diagnoses Not on filedocumented in this encounter Additional Health Concerns Assessment Noted Time PHQ-9 Depression Total Score: 4 03/16/20 23 9:21 AM EDT documented as of this encounter Care Teams Screen Printing Stencil Preparer Relationship Specialty Start Date End Date Kasey Rodriguez MD [address] [place] [phone] PCP - General Internal Medicine 02/23/23 Robert Parkinson 06/12/23 documented as of this encounter
--- OUTSIDE RECORDS SUMMARY | 2025-04-17 07:35 | XMS_ITS | Encounter Summary ---
Author Organization [employer] Address [address] [facility] 7t [place] [address] Care Team Providers Care Soybean Grower Name Role Phone Kasey Rodriguez MD Primary Care Provide r Reason for Visit * Reason Comments Med Refill Encounter Details Date Type Department Care Team ([facility] Contact Info) Description 01/27/2024 Refill [facility] MEDICINE [address] [place], [place] [phone] Kasey Rodriguez MD [address] [place], [place] [phone] Chronic obstructive pulmonary disease, unspecified COPD type [...] Description 07/05/2025 9:00 AM EST Office Visit [facility] MEDICINE [address] [place] [phone] Kasey Rodriguez MD [address] [place] [address] documented as of this encounter Visit Diagnoses Diagnosis Chronic obstructive pulmonary disease, unspecified COPD type (CMS/HCC) (HCC) documented in this encounter Additional Health Concerns Assessment Noted Time PHQ-9 Depression Total Score: 4 03/16/20 23 9:21 AM EDT documented as of this encounter Care Teams Soybean Grower Relationship Specialty Start Date End Date Kasey Rodriguez MD [address] [place] [id number] PCP - General Internal Medicine 02/23/23 Robert Parkinson 06/12/23 documented as of this encounter
--- OUTSIDE RECORDS SUMMARY | 2025-04-17 07:35 | XMS_ITS | Encounter Summary ---
Author Organization [employer] [facility] Address [address] [facility] 7t [place] [address] Care Team Providers Care Fishing Gear Mechanic Name Role Phone Kasey Rodriguez MD Primary Care Provide r Encounter Details Date Type Department Care Team (Latest Contact Info) Description 09/11/2021 Abstract [facility] CONVERSIONS Dental, Provider, DDS Social [...] Description 07/05/2025 9:00 AM EST Office Visit [facility] MEDICINE [address] [place] [address] Kasey Rodriguez MD [address] [place] [address] documented as of this encounter Procedures Procedure Name Priority Date/Time Associated Diagnosis Comments 2,3,5,8,9,12,14,15 PARTIAL DENTURE - CAST METAL Routine 09/11/2021 12:00 AM EDT documented in this encounter Visit Diagnoses Not on filedocumented in this encounter Care Teams Fishing Gear Mechanic Relationship Specialty Start Date End Date Kasey Rodriguez MD [address] [place] [phone] PCP - General Internal Medicine 02/23/23 Robert Parkinson 06/12/23 documented as of this encounter
--- OUTSIDE RECORDS SUMMARY | 2025-04-17 07:35 | XMS_ITS | Patient Health Record ---
Author Organization [facility] Address [address] [place] [address] Care Team Providers Care Data Warehousing Engineer Name Role Phone Chandni Ospina Primary Care Provider Torin Sarmiento Unavailable [phone] Allergies Allergen (clinical drug ingredient) Drug/Non Drug [...] Duration) Notes Start Date End Date Status -81 Active clonazePAM 2 MG 1 tablet Orally [...] Status Risk Notes Problem Acquired hallux valgus (92216177) Hallux valgus (acquired), left foot (M20.12) Active confirmed Problem Acquired hallux valgus (07594874) Hallux valgus (acquired), right foot (M20.11) Active confirmed Problem Polyneuropathy due to type 2 diabetes mellitus (497931066) Type 2 diabetes mellitus with diabetic polyneuropathy (E11.42) Active confirmed Problem Polyneuropathy due to diabetes mellitus type I (442041956) Type 1 diabetes mellitus with diabetic polyneuropathy (E10.42) Active confirmed Plan Of Treatment Pending Test Test Name Order Date X ray : Foot, left 3V 01/23/2021 X ray : Foot, right 3V 01/23/2021 [id number] SKIN LESIONS, OVER 4 01/24/20 21 [id number] SKIN LESIONS, OVER 4 05/13/20 21 [id number] SKIN LESIONS, OVER 4 08/12/19 22 Insurance Providers Payer Name Payer Address Payer Phone Subscriber Number Group Number Insured Name Patient Relationship to Insured Coverage Start Date Coverage End Date [facility] S[employer] Claims [address] [place] [id number] Milind Whitman Self - patient is the [...]
--- OUTSIDE RECORDS SUMMARY | 2025-04-17 07:35 | XMS_ITS | Clinical Summary ---
Author Organization [employer] Address [address] [facility] 7t [place] [address] Care Team Providers Care Supervisor Hanging And Trimming Name Role Phone Kasey Rodriguez MD Primary [...] by mouth in the morning. 3 Active traZODone (Desyrel) 150 MG tablet Take 150 mg by mouth if needed at bedtime. 3 Active Blood Pressure Monitor kit Check blood pressure twice a wee. Dx hypertension 1 kit 3 Active OneTouch Delica Lancets 33G miscIndications: Type 2 diabetes mellitus with hyperglycemia, without long-term current use of insulin (HCC) Use 1 lancet to monitor blood glucose twice daily 100 each 3 3 Active ibuprofen 400 MG tablet TAKE 1 TABLET BY MOUTH EVERY 6 HOURS NEEDED FOR PAIN OR FEVER 20 tablet 3 Active Blood Glucose Monitoring Suppl (ONE TOUCH ULTRA 2) w/Device kitIndications:T ype 2 diabetes mellitus with hyperglycemia, without long-term current use of insulin (HCC) Use to test blood sugar two times daily 1 kit 3 Active Fluticasone-Salm eterol 250-50 MCG/ACT aerosol powderIndication s:Chronic obstructive pulmonary disease, unspecified COPD type (CMS/HCC) (HCC) INHALE ONE PUFF BY MOUTH TWICE A DAY RINSE MOUTH AFTER USING (BULK) 60 each 11 4 Active glipiZIDE XL (Glucotrol XL) 2.5 MG 24 hr tabletIndication s:Type 2 diabetes mellitus with hyperglycemia, without long-term current use of insulin ([facility]) TAKE ONE TABLET BY MOUTH EVERY MORNING DO NOT BREAK, CRUSH, DISSOLVE OR CHEW ^1R1 30 tablet 11 4 Active Lancets (OneTouch Delica Plus [id number]) miscIndications: Type 2 diabetes mellitus with hyperglycemia, without long-term current use of insulin ([facility]) USE DIRECTED TWO TIMES A DAY (BULK) 100 each 11 4 Active OneTouch Ultra Test test stripIndications :Type 2 diabetes mellitus with hyperglycemia, without long-term current use of insulin ([facility]) USE DIRECTED TWO TIMES A DAY (BULK) 100 strip 11 4 Active Diclofenac Sodium 1 % gelIndications:C hronic pain of both knees Apply 1 Application topically every 12 (twelve) hours if needed (apply on affected area). 150 g 1 5 Active aspirin (Aspirin Low Dose) 81 MG EC tablet TAKE ONE TABLET BY MOUTH EVERY DAY 90 tablet 3 5 Active Ventolin HFA 108 (90 Base) MCG/ACT inhalerIndicatio ns:Asthma, unspecified asthma severity, unspecified whether complicated, unspecified whether persistent INHALE 2 PUFFS BY MOUTH EVERY 6 HOURS NEEDED FOR WHEEZING (BULK) 18 g 6 5 Active loratadine (Claritin) 10 MG tablet TAKE ONE TABLET BY MOUTH EVERY MORNING ^1R1 90 tablet 3 5 Active fluticasone (Flonase) 50 MCG/ACT nasal sprayIndications :Allergic rhinitis, unspecified seasonality, unspecified trigger Administer 1-2 sprays into each nostril Once per day. Shake gently. Before first use, prime pump. After use, clean tip and replace cap. 16 g 2 5 026 Active rosuvastatin (Crestor) 40 MG tabletIndication s:Essential hypertension TAKE ONE TABLET BY MOUTH AT BEDTIME 30 tablet Active lisinopril 10 MG tabletIndication s:Essential hypertension TAKE ONE TABLET BY MOUTH EVERY MORNING 30 tablet Active Tirzepatide (Mounjaro) 2.5 MG/0.5ML solution auto-injectorInd ications:Type 2 diabetes mellitus with hyperglycemia, without long-term current use of insulin (HCC) Inject 2.5 mg under the skin 1 (one) time per week. 2 mL 2 Active Active Problems Problem Noted Date Diagnosed Date Onychomycosis 04/11/2025 Major depressive disorder with current active ep [...] Peripheral neuropathy 03/06/2021 Overview (06/23/2024): Of feet, [facility] Aortic dilatation 06/21/2020 Overview (06/23/2024): [...] Farrell Obstructive sleep apnea 03/25/2013 [place] (06/23/2024[place] [facility]: Date 06/22/2013; Wt 225# SE 40%; SM 65%; REM 10%; RDI 9 HI 8, worse in REM (RDI 51 AHI 48) Central apneas 0 Obstructive apneas 0 Mixed apneas 0 hypopneas 22; RERAs 5 ;average oxygen saturation 95% (lowest 77% - without saturations <88% for 5% or more of study); PLMs 9. [facility] Polysomnogram treatment study. Date 07/21/2013. SE 61 [...] Encounters Date Type Department Care Team Description 04/13/2025 Patient Outreach [address] [address] Kavon Trejo Recovery Supports 04/11/2025 9:00 AM EDT Office Visit [address] [address] Kasey Rodriguez MD Type 2 diabetes mellitus with hyperglycemia, without long-term current use of insulin (HCC) (Primary Dx); Essential hypertension; Severe obesity with body mass index (BMI) of 35.0 to 39.9 with comorbidity (HCC); Screening for colon cancer; Onychomycosis; Dietary counseling; Exercise counseling; Encounter for immunization; Encounter for vaccination 04/11/2025 Travel 04/10/[address] [address] Kasey Rodriguez MD Chart Prep 04/04/2025 Refill [facility] [address] [place] [address] [phone] Kasey Rodriguez MD Allergic rhinitis, unspecified seasonality, unspecified trigger; Type 2 diabetes mellitus with hyperglycemia, without long-term current use of insulin (HCC) 02/28/2025 Refill [facility] [address] [place] [address] [phone] Kasey Rodriguez MD Essential hypertension 02/10/2025 Orders Only [facility] [address] [place] [phone] Kasey Rodriguez MD Allergic rhinitis, unspecified seasonality, unspecified trigger (Primary Dx) 02/10/[address] [place] [address] Kasey Rodriguez MD Med Refill 02/07/2025 Refill [facility] [address] [place] [address] Kasey Rodriguez MD Essential hypertension 01/26/2025 Telephone [facility] [address] [place] [address] Kasey Rodriguez MD OCT RECALL 01/17/2025 Telephone [facility] [address] [place] [address] Kasey Rodriguez MD FYI from Last 3 Months Immunizations Immunization Administration [...] 03/26/2017 Influenza, seasonal, injecta ble, preservative free 04/11/2025,07/02/2012 Pfizer Covid-19 Vaccine 12+ 04/11/2025, Pfizer Covid-19 Vaccine 12+ Bivalent 03/28/2022 Pneumococcal [...] the past 12 months, has t he [employer], gas, oil or water [employer] threatened to shut off services in your [...] Sign Reading Time Taken Comments Blood Pressure 120/74 04/11/2025 8:59 AM EDT Pulse 64 04/11/2025 8:59 AM EDT Temperature 36.3 C (97.3 F) 04/11/2025 8:59 AM EDT Respiratory Rate 19 04/11/2025 8:59 AM EDT Oxygen Saturation 99% 09/27/2024 1:08 PM EDT Inhaled Oxygen Concentration - - Weight 102 kg (224 lb 2 oz) 04/11/2025 8:59 AM E DT Height 165.1 cm (5' 5 ) 04/11/2025 8:59 AM EDT Body Mass Index 37.3 04/11/2025 8:59 AM EDT Plan of Treatment Upcoming Encounters Date Type Department Care Team (Late st Contact Info) Description 07/05/2025 9:00 AM EST Office Visit [facility] [address] [place] [address] Kasey Rodriguez MD [address] [place] [address] Health Maintenance Due Date Last Done Comments CT Colonography 1963 Colonoscopy 1963 Colorectal Cancer Screening 1963 FIT DNA/Cologuard 1963 FIT 1963 FOBT 1963 Sigmoidoscopy 1963 Diabetes: Foot Exam 1973 Dental X-Ray: [facility]wings 11/12/2024 11/12/2023, 03/10 Dental Oral Exam 12/13/2024 06/14/2024, , 09/09/2022 Dental Prophylaxis 12/13/2024 06/14/2024, 0 11/12/2023, 09/09/2022 Diabetes: Hemoglobin A1C 07/12/202504/11/ 025, 12/29/2024, 09/27/2024, Additional history exists Lipid Panel 09/27/2025 09/27/2024, 06/25/2023 Alcohol/Substance Use Screening 12/29/2025 12/29/2024 Depression Screening 12/29/2025 12/29/2024, 12/30/19 Diabetes: Urine Protein Screening 12/29/2025 12/29/2024, 06/25/2023 Disability Screening 12/29/2025 12/29/2024 SDOH Screening 12/29/2025 12/29/2024 Tobacco Screening 04/11/2026 04/11/2025 Eye Exam 09/16/2026 09/16/2024, 09/2024, 09/16/2024, Additional history exists Dental X-Ray: [...] Hepatitis B Vaccines Completed 12/13/2024, 11/01/19 25 COVID-19 Vaccine Completed 04/11/2025, , 03/28/2022, Additional history exists Influenza Vaccine Completed 04/11/2025, , 04/19/2021, Additional history exists HIB Vaccines Aged Out [...] Procedure Name Priority Date/Time Associated Diagnosis Comments POCT GLYCATED HEMOGLOBIN, TOTAL Routine 04/11/2025 9:03 AM EDT Type 2 diabetes mellitus with hyperglycemia, without long-term current use of insulin (HCC) POCT GLUCOSE Routine 04/11/2025 9:01 AM EDT Type 2 diabetes mellitus with hyperglycemia, without long-term current use of insulin (HCC) ALBUMIN, RANDOM URINE W/CREATININE Routine 12/29/2024 10:18 AM EDT DM (diabetes mellitus), type 2 with neurological complications (CMS/HCC) HEPATITIS C AB W/REFL TO HCV RNA, QN, PCR Routine 09/27/2024 2:12 PM EDT Type 2 diabetes mellitus with hyperglycemia, without long-term current use of insulin ([facility]/HCC) Major depressive disorder with current active episode, [...] hyperglycemia, without long-term current use of insulin ([facility]/HCC) Major depressive disorder with current active episode, [...] Relevant to Health Maintenance Results * (ABNORMAL) POCT Hgb A1c (04/11/2025 9:03 AM EDT) Hemoglobin A1C 9.4(A) 4.0 - 5.7 % QC Media Lot # [id number] Lot# Expiration Date ,027 Blood 04/11/2025 9:03 AM EDT Kasey Menjivar MD POINT OF CARE TEST EN TER/EDIT ORDERABLES Final Result * (ABNORMAL) POCT Glucose (04/11/2025 9:01 AM EDT) [facility] Glucose Blood, POC 334(A) 60 - 200 mg/dL QC Media Lot # [id number] Lot# Expiration Date Blood Capillary blood specimen / Unknown 04/11/2025 9:01 AM EDT Kasey Menjivar MD POINT OF CARE TEST EN TER/EDIT ORDERABLES Final Result * Albumin, Random Urine W/Creatinine (12/29/2024 10:18 AM EDT) [facility] Creatinine, Urine 141.17 mg/dL [facility] Microalbumin Urine 15.0 mg/L [facility] Microalbum Creatinine Ratio Ur 10.6 <30 ug/mg cr [facility] Comment:Albumin/Creatinine R atio Reference Ranges: Normal: < 30 ug/mg creatinine Microalbuminuria: 30 - 300 ug/mg creatinineClinical Albuminuria: > 300 ug/mg creatinine Urine (Urine, Random) 12/29/2024 10:18 AM EDT 12/29/2024 11:17 AM EDT Kasey Menjivar MD LAB URINE ORDERABLES Final Result [facility] [address] [place] [phone] * Hepatitis C Antibody with Reflex to HCV, RNA, Quantitative, Real-Time PCR (09/27/2024 2:12 PM EDT) [facility] Hepatitis C Antibody Nonreactive Nonreactive [facility] Comment:Antibodies to HCV no t detected; does not exclude early acuteHCV infection. Blood Venous blood specimen / Unknown 09/27/2024 2:12 PM EDT 09/27/2024 4:10 PM EDT Kasey Menjivar MD LAB BLOOD ORDERABLES Final Result Performing Organization Address City/[facility]/ZIP Co de Phone Number [facility] [address] [place] [phone] * HIV-1/2 Antigen and Antibodies, Fourth Generation, with Reflexes (09/27/2024 2:12 PM EDT) [facility] HIV AB/AG Nonreactive Nonreactive [facility] Comment:HIV-1 p24 Ag and/or HIV-1/HIV-2 Ab not detected.A test result that is nonreactive does not exclude thepossibility of exposure to or infection with HIV-1 and/orHIV-2. Nonreactive results in this assay for individualswith prior exposure to HIV-1 and/or HIV-2 may be due toantigen and antibody levels that are below the limit ofdetection of this assay.The [employer] HIV Ag/Ab Combo assay result andsupplemental assay results should be interpreted inconjunction with the patient's clinical presentation,history and other laboratory results. If the results areinconsistent with clinical evidence, additional testing issuggested to confirm the result. Blood Venous blood specimen / Unknown 09/27/2024 2:12 PM EDT 09/27/2024 4:10 PM EDT us Kasey Menjivar MD LAB BLOOD ORDERABLES Final Result Performing Organization Address City/[facility]/ZIP Co de Phone Number [facility] [address] [place] [phone] * (ABNORMAL) Lipid Panel, Standard (09/27/2024 2:12 PM EDT) [facility] Triglycerides 84 <150 mg/dL [facility] Comment:Desirable Triglyceri de: less than 150 mg/dLBorderline High Triglyceride 150-199 mg/dLHigh Triglyceride: 200-499 mg/dLVery High Triglyceride: greater than or equal to 5OO mg/dL Cholesterol 99 <200 mg/dL [facility] Comment:Desirable Cholestero l: less than 200 mg/dLBorderline High Cholesterol: 200-239 mg/dLHigh Cholesterol: greater than 239 mg/dL LDL Cholesterol Calculated 43 <100 mg/dL [facility] Comment:Desirable LDL: less than 100 mg/dLNear Optimal/Above Optimal LDL: 110- 129 mg/dLBorderline High LDL: 130-159 mg/dLHigh LDL: 160-189 mg/dLVery High LDL: greater than or equal to 190 mg/dL HDL Cholesterol 40(L) >40 mg/dL [facility] Comment:Desirable HDL: great er than 40 mg/dL Note: This HDL assay may give artificially low results in patients with liver disease. Blood Venous blood specimen / Unknown 09/27/2024 2:12 PM EDT 09/27/2024 4:10 PM EDT us Kasey Menjivar MD LAB BLOOD ORDERABLES Final Result [facility] [address] [place] [phone] from Last 3 Months or Most Recently Relevant to Health Maintenance [place] [address] [place] [address] STANDARD [facility] ONE CARE < 65 DENTAL - [facility] Care Teams Supervisor Hanging And Trimming Relationship Specialty Start Date End Date Kasey Rodriguez MD [address] [place] [address] PCP - General Internal Medicine 02/23/23 Robert Parkinson 06/12/23
--- OUTSIDE RECORDS SUMMARY | 2025-04-17 07:35 | XMS_ITS | Encounter Summary ---
Author Organization [employer] Address [address] [facility] 7t [place] [address] Care Team Providers Care Edge Bander Operator Name Role Phone Kasey Rodriguez MD Primary Care Provide r Reason for Visit * Reason Comments Med Refill Encounter Details Date Type Department Care Team ([facility] Contact Info) Description 01/26/2024 Refill [facility] [address] [place], [place] [phone] Kasey Rodriguez MD [address] [place], [place] [phone] Chronic obstructive pulmonary disease, unspecified COPD type [...] Description 07/05/2025 9:00 AM EST Office Visit [facility] [address] [place] [address] [phone] Kasey Rodriguez MD [address] [place] [address] documented as of this encounter Visit Diagnoses Diagnosis Chronic obstructive pulmonary disease, unspecified COPD type (CMS/HCC) (HCC) documented in this encounter Additional Health Concerns Assessment Noted Time PHQ-9 Depression Total Score: 4 03/16/20 23 9:21 AM EDT documented as of this encounter Care Teams Edge Bander Operator Relationship Specialty Start Date End Date Kasey Rodriguez MD [address] [place] [phone] PCP - General Internal Medicine 02/23/23 Robert Parkinson 06/12/23 documented as of this encounter
--- OUTSIDE RECORDS SUMMARY | 2025-04-17 07:35 | XMS_ITS | Encounter Summary ---
Author Organization [employer] Address [address] [facility] 7t [place] [address] Care Team Providers Care Business Coordinator Name Role Phone Kasey Rodriguez MD Primary Care Provide r Reason for Visit * Reason Comments Med Refill Encounter Details Date Type Department Care Team ([facility] st Contact Info) Description 03/16/2024 Refill [facility] [address] [place], [place] [phone] Kasey Rodriguez MD [address] [place], [place] [phone] Essential hypertension Social History Tobacco Use Types [...] Description 07/05/2025 9:00 AM EST Office Visit [facility] [address] [place] [address] Kasey Rodriguez MD [address] [place] [address] documented as of this encounter Visit Diagnoses Diagnosis Essential hypertension Unspecified essential hypertension documented in this encounter Additional Health Concerns Assessment Noted Time PHQ-9 Depression Total Score: 4 03/16/20 23 9:21 AM EDT documented as of this encounter Care Teams Business Coordinator Relationship Specialty Start Date End Date Kasey Rodriguez MD [address] [place] [phone] PCP - General Internal Medicine 02/23/23 Robert Caring 06/12/23 documented as of this encounter
--- OUTSIDE RECORDS SUMMARY | 2025-04-17 07:35 | XMS_ITS | Encounter Summary ---
Author Organization [employer] Address [address] [facility] [address] 7t [place] [address] Care Team Providers Care Cps Team Lead Name Role Phone Kasey Rodriguez MD Primary Care Provide r Reason for Visit * Reason Comments Med Refill Encounter Details Date Type Department Care Team ([facility] Contact Info) Description 02/07/2025 Refill [facility] [address] [place], [place] [phone] Kasey Rodriguez MD [address] [place], [place] [phone] Essential hypertension Social History Tobacco Use Types [...] Description 07/05/2025 9:00 AM EST Office Visit [facility] [address] [place] [phone] Kasey Rodriguez MD [address] [place] [address] documented as of this encounter Visit Diagnoses Diagnosis Essential hypertension Unspecified essential hypertension documented in this encounter Additional Health Concerns Assessment Noted Time PHQ-9 Depression Total Score: 2 12/30/19 25 9:22 AM EDT documented as of this encounter Care Teams Cps Team Lead Relationship Specialty Start Date End Date Kasey Rodriguez MD [address] [place] [phone] PCP - General Internal Medicine 02/23/23 Robert Parkinson 06/12/23 documented as of this encounter
--- OUTSIDE RECORDS SUMMARY | 2025-04-17 07:35 | XMS_ITS | Encounter Summary ---
Author Organization [employer] Address [address] [facility] 7t [place] [address] Care Team Providers Care Site Physician Name Role Phone Kasey Rodriguez MD Primary Care Provide r Reason for Visit * Reason Comments Med Refill Encounter Details Date Type Department Care Team ([facility] st Contact Info) Description 09/21/2024 Refill [facility] [address] [place], [place] [phone] Kasey Rodriguez MD [address] [place], [place] [phone] Social History Tobacco Use Types Packs/Day Years [...] Description 07/05/2025 9:00 AM EST Office Visit [facility] [address] [place] [phone] Kasey Rodriguez MD [address] [place] [address] documented as of this encounter Visit Diagnoses Not on filedocumented in this encounter Additional Health Concerns Assessment Noted Time PHQ-9 Depression Total Score: 4 03/16/20 23 9:21 AM EDT documented as of this encounter Care Teams Site Physician Relationship Specialty Start Date End Date Kasey Rodriguez MD [address] [place] [phone] PCP - General Internal Medicine 02/23/23 Robert Parkinson 06/12/23 documented as of this encounter
--- OUTSIDE RECORDS SUMMARY | 2025-04-17 07:35 | XMS_ITS | Encounter Summary ---
Author Organization [employer] Address [address] [facility] 7t [place] [address] Care Team Providers Care Corrosion Control Fitter Name Role Phone Kasey Rodriguez MD Primary Care Provide r Encounter Details Date Type Department Care Team ([facility] st Contact Info) Description 09/14/2024 Telephone [facility] [address] [place] [address] Desiree Chan, PharmD [address] [place] [address] Social History Tobacco Use Types Packs/Day Years [...] 9:00 AM EST Office Visit [facility] [address] [place] [phone] Kasey Rodriguez MD [address] [place] [phone] documented as of this encounter Visit Diagnoses Not on filedocumented in this encounter Additional Health Concerns Assessment Noted Time PHQ-9 Depression Total Score: 4 03/16/20 23 9:21 AM EDT documented as of this encounter Care Teams Corrosion Control Fitter Relationship Specialty Start Date End Date Kasey Rodriguez MD [address] [place] [phone] PCP - General Internal Medicine 02/23/23 Robert Parkinson 06/12/23 documented as of this encounter
--- OUTSIDE RECORDS SUMMARY | 2025-04-17 07:35 | XMS_ITS | Encounter Summary ---
Author Organization [employer] Address [address] [facility] 7t [place] [address] Care Team Providers Care Gericare Aide Teacher Name Role Phone Kasey Rodriguez MD Primary Care Provide r Reason for Visit * Reason Comments Med Refill Encounter Details Date Type Department Care Team ([facility] Contact Info) Description 01/03/2024 Refill [facility] [address] [place], [place] [phone] Kasey Rodriguez MD [address] [place], [place] [phone] Chronic obstructive pulmonary disease, unspecified COPD type [...] Description 07/05/2025 9:00 AM EST Office Visit [facility] [address] [place] [address] [phone] Kasey Rodriguez MD [address] [place] [address] documented as of this encounter Visit Diagnoses Diagnosis Chronic obstructive pulmonary disease, unspecified COPD type (CMS/HCC) (HCC) documented in this encounter Additional Health Concerns Assessment Noted Time PHQ-9 Depression Total Score: 4 03/16/20 23 9:21 AM EDT documented as of this encounter Care Teams Gericare Aide Teacher Relationship Specialty Start Date End Date Kasey Rodriguez MD [address] [place] [phone] PCP - General Internal Medicine 02/23/23 Robert Parkinson 06/12/23 documented as of this encounter
--- OUTSIDE RECORDS SUMMARY | 2025-04-17 07:35 | XMS_ITS | Encounter Summary ---
Author Organization [employer] Address [address] [facility] [address] 7[address] [place] [address] Care Team Providers Care Dinkey Motor Operator Name Role Phone Kasey Rodriguez MD Primary Care Provide r Reason for Visit * Reason Comments Med Refill Encounter Details Date Type Department Care Team ([facility] st Contact Info) Description 04/04/2025 Refill [facility] [address] [place], [place] [phone] Kasey Rodriguez MD [address] [place], [place] [phone] Allergic rhinitis, unspecified seasonality, unspecified trigger; Type 2 diabetes mellitus with hyperglycemia, without long-term current use of insulin (HCC) Social History Tobacco Use Types Packs/Day Years [...] 9:00 AM EST Office Visit [facility] [address] [place] [phone] Kasey Rodriguez MD [address] [place] [address] documented as of this encounter Visit Diagnoses Diagnosis Allergic rhinitis, unspecified seasonality, unspecified trigger Type 2 diabetes mellitus with hyperglycemia, without long-term current use of insulin (HCC) documented in this encounter Additional Health Concerns Assessment Noted Time PHQ-9 Depression Total Score: 2 12/30/19 25 9:22 AM EDT documented as of this encounter Care Teams Dinkey Motor Operator Relationship Specialty Start Date End Date Kasey Rodriguez MD [address] [place] [phone] PCP - General Internal Medicine 02/23/23 Robert Parkinson 06/12/23 documented as of this encounter
--- NOTE | 2025-04-17 07:57 | MHC.OFFVIS ---
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 Previously had a sleep apnea machine however moved and some how misplaced his machine. He reports having had a recent sleep study however does not recall where and or results of sleep study(PSG done through us 10/2024-results in chart) Creative Guru Required: Yes Creative Guru Services: Creative Guru Offered & Declined Creative Guru Name: friend Information Interpreted: non-clinical & clinical Accompanied by: Friend Allergies olanzapine (From ZYPREXA) Allergy (Unknown, Verified 04/17/25 08:05) UNKNOWN mirtazapine (From REMERON) Adverse Reaction (Unknown, Verified 04/17/25 08:05) PAIN IN LEGS sertraline (From ZOLOFT) Adverse Reaction (Unknown, Verified 04/17/25 08:05) ANXIETY gabapentin Adverse Reaction (Verified 04/17/25 08:05) Unknown metformin Adverse Reaction (Verified 04/17/25 08:05) Unknown HPI Comments Details: 60 year old Bengali speaking male is referred to us for evalauation of BRI. His friend Guadalupe helps with history taking and interpretation today. PSG c/w 874 Primary Limb Movements for an index of 176/hr. Snoring is 79% of sleep with oxygen desaturation to 80% and REM AHI is 45.7/hr. His sleep efficiency is 56% and the study may be under estimated due to poor sleep efficiency. Total REM sleep is 3.5% will refer him to ENT for snoring and evaluation of obstruction or h/o deviated septum. He does not know how to read and write, so he describes medications with color shape and size. He goes to bed at 11pm and it takes about 2 hours for him to fall asleep after taking trazadone. Pt had a [facility]ap machine and [facility], he does not know what happened to his machine some where and has never found it. He has morning headaches daily. He snores loudly, gasps for air has frequent arousals. He has bruxism, wakes up clenching his jaw. He moves his feet all night long with entire body jumping. He has fallen out of the bed. He yells and screams at night. He denies parasomnia. He has depression and anxiety so gets overwhelmed easily. His daughters visit at least once a week and bring him groceries. His memory is poor, he forgets many tasks, forgets to turn the microwave after placing coffee cup inside. He walks daily, diet is good, drinks plenty of water. He does not smoke cigarette and does not drink alcohol. His fh + for dad having dementia at an early age of 43. [facility] Medical History GERD (gastroesophageal reflux disease) Asthma Anxiety Hyperlipidemia Hypertension BRI (obstructive sleep apnea) Alcohol abuse Suicidal ideation Diverticulosis Surgical History History of laparoscopic cholecystectomy Social History Household Members: None Housing: Apartment Do you presently have visiting nurse or other home services: No Alcohol intake: current Alcohol intake frequency: holidays/special occasions only Alcohol type: beer Comment: sleeping Patient Tobacco Use Status: Never used Tobacco service: No Current occupational status: disabled Sexual orientation: Straight/Heterosexual Physical Exam Vital Signs: Last Vital Signs Pulse 64 04/17/25 07:58 BP 110/66 04/17/25 07:58 Pulse Ox 97 04/17/25 07:58 Oxygen Delivery Method Room Air 04/17/25 07:58 BMI result Body Mass Index 37.3 Const General: cooperative, comfortable and no acute distress Nutritional Appearance: obese and overweight Orientation/consciousness: patient oriented x3 Limitations: language barrier HEENT Face and sinus: Yes face symmetric Teeth and gingiva: other (mallampti score is 4) Eyes Pupils: Equal, round and reactive pupils present Neck Neck: Yes full ROM Resp Effort & Inspection: normal respiratory effort and able to speak in complete sentences Neuro General: patient oriented x3 and moves all extremities Cranial nerves: Yes Equal, round and reactive pupils present, Yes Normal accommodation reflex present, Yes Normal facial strength present, Yes Midline tongue present, Yes Ability to bilaterally rotate head present and Yes Ability to bilaterally elevate shoulders present Cognition (Neuro): normal cognition Gait exam (Neuro): Normal gait present Motor exam (neuro): 5/5 motor strength present throughout and Normal motor muscle tone present throughout Deep tendon reflexes (DTR's): Right triceps reflex intensity grade: 2+, Left triceps reflex intensity grade: 2+, Rt Biceps (C5, C6): 2+, Left biceps reflex intensity grade: 2+, Right brachioradialis reflex intensity grade: 2+, Left brachioradialis reflex intensity grade: 2+, Right patellar reflex intensity grade: 2+, Left patellar reflex intensity grade: 2+, Right ankle reflex intensity grade: 2+ and Left ankle reflex intensity grade: 2+ Psych Appearance: grossly normal Affect: normal affect Thought process: Normal thought process present Thought content: Normal thought content present Insight: Good insight present (Psych) Results Reviewed Results Reviewed: PSG reviewed with pt labs reviewed with pt Assessment & Plan Assessment & Plan (1) Excessive daytime sleepiness: Code(s): G47.19 - Other hypersomnia Category: Medical (2) Loud snoring: Code(s): R06.83 - Snoring Category: Medical (3) History of deviated nasal septum: Code(s): Z87.09 - Personal history of other diseases of the respiratory system Category: Medical (4) Periodic limb movements of sleep: Code(s): G47.61 - Periodic limb movement disorder Category: Medical (5) RLS (restless legs syndrome): Code(s): G25.81 - Restless legs syndrome Category: Medical (6) Anemia: Code(s): D64.9 - Anemia, unspecified Category: Medical Qualifiers: Anemia type: iron deficiency Iron deficiency anemia type: unspecified iron deficiency Qualified Code(s): D50.9 - Iron deficiency anemia, unspecified Plan Excessive Daytime Sleepiness PSG c/w REM AHI is 45.7 and 79% of sleep c/w snoring start cpap therapy at [id number] and f/u for compliance, [facility] and thinks [facility] stole his machine. PLMD with index of 176 /hr with RLS magnesium 400mg po daily at bedtime- allergies to Gabapentin H/O Deviated Septum ENT referral Labs to r/o deficiencies F/u in 3 months Orders: Orders Ferritin Today D64.9 - Anemia, unspecified Methylmalonic Acid Today D64.9 - Anemia, unspecified, G47.9 - Sleep disorder, unspecified, R53.83 - Other fatigue Homocysteine Today D64.9 - Anemia, unspecified, G47.9 - Sleep disorder, unspecified, R53.83 - Other fatigue Vitamin B12 and Folate Today D64.9 - Anemia, unspecified Referrals Ear/Nose/Throat Referral R06.83 - Snoring, Z87.09 - Personal history of other diseases of the respiratory system Medications: New magnesium 200 mg PO DAILY 90 tabs 3RF restless legs 3 months MDD 200mg po G25.81 - Restless legs syndrome, G47.19 - Other hypersomnia Patient Instructions: Sleep Hygiene provided: set a scheduled bedtime and wake time to help regulate the circadian rhythm and balance the release of pituitary hormones. Sleep in a dark room, temperatures below 68 degrees, and no devices n bed. Limit caffeinated products 6 hours prior to bed, and limit fluids 2-4 hours prior to bed. Gentle night yoga, diffusing essential oils, and playing soft music can be relaxing. Ask pt if he would like a dopamine agonist to help with PLMD index is 176/hr. Coding Level of Care Code New Pt Level 4 (40468) Diagnoses Excessive daytime sleepiness G47.19 Loud snoring R06.83 History of deviated nasal septum Z87.09 Periodic limb movements of sleep G47.61 RLS (restless legs syndrome) G25.81 Iron deficiency anemia, unspecified iron deficiency anemia type D50.9 Anemia type: iron deficiency Iron deficiency anemia type: unspecified iron deficiency
[2025-04-17 07:58] VITALS: BP 110/66; PULSE 64; O2SAT 97; BMI 37.3
--- OUTSIDE RECORDS SUMMARY | 2025-05-30 19:00 | XMS_ITS | Clinical Summary ---
Author Organization Unknown Care Team Providers Care Steel Post Installer Name Role Phone HOMAR BALLARD MD, SERJIO Unavailable Clover SALCIDO RN, ARIANNA Unavailable Unavailable STEPHEN ENCINAS, DAIVD Unavailable Unavailable Payers Payer Name Policy Type Policy Number Effective Date Expira tion Date [facility] [id number] [place] [id number] MEDICARE - [facility] [facility] [id number] Problems Condition Name Condition Details Condition Category [...] 2022-06 00:00: 00 04-11 23:59 :00 No [id number] 1 drops TWICE DAILY 1 drops TWICE DAILY (route: ophthalmic (eye)) Med Classific ation: Ophthalmi c Agents Ventolin HFA 90 mcg/actuati on aerosol inhaler 2022-06 00:00: 00 04-11 23:59 :00 No [id number] Unavailable 2 puff EVERY 4 HOURS 2 puff EVERY 4 HOURS (route: inhalation ) Med Classific ation: Respirato ry Therapy Agents lisinopril 10 mg tablet 2022-06 00:00: 00 04-11 23:59 :00 No [id number] Unavailable 10 mg EVERY DAY 10 mg EVERY DAY (route: oral) Med Classific ation: Cardiovas cular Therapy Agents verapamil ER (PM) 100 mg capsule 24hr pellet CT,ext.rele ase 2022-06 00:00: 00 09-13 23:59 :00 No [id number] 100 mg AT BEDTIME 100 mg AT BEDTIME (route: oral) Med Classific ation: Cardiovas cular Therapy Agents clonazepam 2 mg tablet 2022-06 00:00: 00 01-30 23:59 :00 No [id number] 2 mg AT BEDTIME 2 mg AT BEDTIME (route: oral) Med Classific ation: Central Nervous System Agents duloxetine 60 mg capsule,del ayed release 2022-06 00:00: 00 04-11 23:59 :00 No [id number] 60 mg EVERY AM 60 mg EVERY AM (route: oral) Med Classific ation: Central Nervous System Agents trazodone 150 mg tablet 2022-06 00:00: 00 04-11 23:59 :00 No [id number] 150 mg AT BEDTIME NEEDED 150 mg AT BEDTIME NEEDED (route: oral) Med Classific ation: Central Nervous System Agents aspirin 81 mg tablet,yaa yed release 2022-06 00:00: 00 04-11 23:59 :00 No [id number] 81 mg EVERY AM 81 mg EVERY AM (route: oral) Med Classific ation: Hematolog ical Agents Flomax 0.4 mg capsule 2022-06 00:00: 00 01-30 23:59 :00 No [id number] 0.4 mg BEDTIME 0.4 mg BEDTIME (route: oral) Med Classific ation: Genitouri nary Therapy Galzin 50 mg (zinc) capsule 2022-06 00:00: 00 09-13 23:59 :00 No [id number] 50 mg DAILY 50 mg DAILY (route: oral) Med Classific ation: Antidotes and other Reversal Agents glipizide 5 mg tablet 2022-06 00:00: 00 04-11 23:59 :00 No [id number] 5 mg EVERY AM 5 mg EVERY AM (route: oral) Med Classific ation: Endocrine loratadine 10 mg tablet 2022-06 00:00: 00 04-11 23:59 :00 No [id number] 10 mg EVERY AM 10 mg EVERY AM (route: oral) Med Classific ation: Respirato ry Therapy Agents montelukast 10 mg tablet 2022-06 00:00: 00 09-13 23:59 :00 No [id number] 10 mg BEDTIME 10 mg BEDTIME (route: oral) Med Classific ation: Respirato ry Therapy Agents omeprazole 20 mg tablet,yaa yed release 2022-06 00:00: 00 09-13 23:59 :00 No [id number] 20 mg 2 TIMES DAILY 20 mg 2 TIMES DAILY (route: oral) Med Classific ation: Gastroint estinal Therapy Agents ropinirole 0.5 mg tablet 2022-06 00:00: 00 09-13 23:59 :00 No [id number] 0.5 mg BEDTIME 0.5 mg BEDTIME (route: oral) Med Classific ation: Central Nervous System Agents rosuvastati n 40 mg tablet 2022-06 00:00: 00 04-11 23:59 :00 No [id number] 40 mg BEDTIME 40 mg BEDTIME (route: oral) Med Classific ation: Cardiovas cular Therapy Agents vitamin A 2,400 mcg capsule 2022-06 00:00: 00 09-13 23:59 :00 No [id number] 2400 mcg DAILY 2400 mcg DAILY (route: oral) Med Classific ation: Electroly te Balance-N utritiona l Products Vitamin C 1,000 mg tablet 2022-06 00:00: 00 09-13 23:59 :00 No [id number] 1000 mg EVERY AM 1000 mg EVERY AM (route: oral) Med Classific ation: Electroly te Balance-N utritiona l Products Vitamin D3 50 mcg (2,000 unit) capsule 2022-06 00:00: 00 09-13 23:59 :00 No [id number] 50 mcg EVERY AM 50 mcg EVERY AM (route: oral) Med Classific ation: Electroly te Balance-N utritiona l Products vitamin E 268 mg (400 unit) capsule 2022-06 00:00: 00 09-13 23:59 :00 No [id number] 268 mg DAILY 268 mg DAILY (route: oral) Med Classific ation: Electroly te Balance-N utritiona l Products quetiapine 50 mg tablet 09-13 00:00: 00 01-30 23:59 :00 No [id number] 50 mg BEDTIME 50 mg BEDTIME (route: oral) Med Classific ation: Central Nervous System Agents fluticasone propionate 250 mcg/actuati on blister powder for inhalation 02-28 00:00: 00 04-11 23:59 :00 No [id number] 1 inhalat ion 2 TIMES DAILY 1 inhalation 2 TIMES DAILY (route: inhalation ) Med Classific ation: Respirato ry Therapy Agents aspirin 81 mg tablet,yaa yed release 2024-06 00:00: 00 Yes [id number] 81 mg EVERY AM 81 mg EVERY AM (route: oral) Med Classific ation: Hematolog ical Agents dorzolamide 22.3 mg-timolol 6.8 mg/mL eye drops 2024-06 00:00: 00 Yes [id number] 1 drops EVERY AM 1 drops EVERY AM (route: ophthalmic (eye)) Med Classific ation: Ophthalmi c Agents duloxetine 60 mg capsule,del ayed release 2024-06 00:00: 00 Yes [id number] 60 mg BEDTIME 60 mg BEDTIME (route: oral) Med Classific ation: Central Nervous System Agents fluticasone propionate 250 mcg/actuati on blister powder for inhalation 2024-06 00:00: 00 Yes [id number] 1 inhalat ion 2 TIMES DAILY 1 inhalation 2 TIMES DAILY (route: inhalation ) Med Classific ation: Respirato ry Therapy Agents glipizide 5 mg tablet 2024-06 00:00: 00 Yes [id number] 5 mg EVERY AM 5 mg EVER Y AM (route: oral) Med Classific ation: Endocrine lisinopril 10 mg tablet 2024-06 00:00: 00 Yes [id number] 10 mg EVERY AM 10 mg EVERY AM (route: oral) Med Classific ation: Cardiovas cular Therapy Agents loratadine 10 mg tablet 2024-06 00:00: 00 Yes [id number] 10 mg EVERY AM 10 mg EVERY AM (route: oral) Med Classific ation: Respirato ry Therapy Agents rosuvastati n 40 mg tablet 2024-06 00:00: 00 Yes [id number] 40 mg BEDTIME 40 mg BEDTIME (route: oral) Med Classific ation: Cardiovas cular Therapy Agents trazodone 150 mg tablet 2024-06 00:00: 00 Yes [id number] 150 mg BEDTIME 150 mg BEDTIME (route: oral) Med Classific ation: Central Nervous System Agents Ventolin HFA 90 mcg/actuati on aerosol inhaler 2024-06 00:00: 00 Yes [id number] 2 puff EVERY 4-6 HOURS NEEDED 2 puff EVERY 4-6 HOURS NEEDED (route: inhalation ) Med Classific ation: Respirato ry Therapy Agents Vital Signs Vital Name Observation Time Observation Value Commen ts Temperature 2025-04-14 07:43:00.000 98.6 [degF] Temperature 2025-04-13 07:57:00.000 98.6 [degF] Temperature 2025-04-12 07:41:00.000 98.6 [degF] Temperature 2025-04-11 08:15:00.000 98.6 [degF] Temperature 2025-04-10 07:53:00.000 98.6 [degF] Temperature 2025-04-07 07:38:00.000 98.6 [degF] Temperature 2025-04-06 08:07:00.000 98.6 [degF] Temperature 2025-04-05 08:05:00.000 98.6 [degF] Temperature 2025-04-04 07:35:00.000 98.6 [degF] Temperature 2025-04-03 08:03:00.000 98.6 [degF] Pulse 2025-04-14 07:43:00.000 82 /min Pulse 2025-04-13 07:57:00.000 82 /min Pulse 2025-04-12 07:41:00.000 82 /min Pulse 2025-04-11 08:15:00.000 82 /min Pulse 2025-04-10 07:53:00.000 82 /min Pulse 2025-04-07 07:38:00.000 88 /min Pulse 2025-04-06 08:07:00.000 69 /min Pulse 2025-04-05 08:05:00.000 82 /min Pulse 2025-04-04 07:35:00.000 69 /min Pulse 2025-04-03 08:03:00.000 78 /min O2 Saturation (%) 2025-04-12 07:47:00.000 98 % O2 Saturation (%) 2025-04-07 07:38:00.000 95 % O2 Saturation (%) 2025-04-06 08:08:00.000 98 % O2 Saturation (%) 2025-04-05 08:06:00.000 98 % O2 Saturation (%) 2025-04-03 08:04:00.000 98 % Respirations 2025-04-14 07:43:00.000 20 /min Respirations 2025-04-13 [...] 2025-04-05 08:06:00.000 224 [lb_av] Systolic Blood Pressure 2025-04-14 07:43:00.000 138 mm [...] 08:03:00.000 142 mm [Hg] Diastolic Blood Pressure 2025-04-14 07:43:00.000 [...] AWARENESS FOR SAFETY AND WILL NOTIFY CLINICAL COMMUNICATION CENTER COORDINATOR AND PHYSICIAN/PROVIDER WITH ANY CHANGE IN CONDITION. [code = SKILLED NURSE WILL MAINTAIN SITUATIONAL AWARENESS FOR SAFETY AND WILL NOTIFY CLINICAL COMMUNICATION CENTER COORDINATOR AND PHYSICIAN/PROVIDER WITH ANY CHANGE IN CONDITION.] [...] CARE WILL BE ESTABLISHED THAT MEETS PATIENT'S FCI NEEDS AND INCLUDES PATIENT GOAL FOR HOME [...] End Date/Time Encounter Type Admission Type Attending [facility] Care Department Encounter ID Discharge Date Discharge Status Discharge Condition Discharge Reason Percent Goals Met 2025-04-02 00:00:00 2025-05-31 00:00:00 Outpatient RECERTIFIC DAVID GENTILE [facility] [id number] 0.00
== END 2025-04-17 09:12 | disposition home or self-care (01) ==
PROVIDERS: PCP Internal Medicine; Visit Provider Physician Assistant Medical
DX: G47.19 Other hypersomnia (principal); R06.83 Snoring; Z87.09 Personal history of other diseases of the respiratory system; G47.61 Periodic limb movement disorder; G25.81 Restless legs syndrome; D50.9 Iron deficiency anemia, unspecified
CPT/HCPCS: 99204

== ENCOUNTER → 2025-04-17 07:32 | Outpatient (BNVA) | payer OTHER, SELFPAY | PROVIDERS: PCP Internal Medicine; Visit Provider Physician Assistant Medical | DX: G47.19 Other hypersomnia (principal); R06.83 Snoring; G47.61 Periodic limb movement disorder; G25.81 Restless legs syndrome; D50.9 Iron deficiency anemia, unspecified; Z87.09 Personal history of other diseases of the respiratory system; Z55.0 Illiteracy and low-level literacy | CPT/HCPCS: 99202 ==

== ENCOUNTER 2025-04-18 08:29 | Outpatient (REF) | payer OTHER, SELFPAY ==
--- OUTSIDE RECORDS SUMMARY | 2024-01-11 04:00 | XMS_ITS ---
Author Organization [facility] Address [address] [place] [phone] Care Team Providers Care Hospital Plan Administrator Name Role Phone Chandni Ospina Primary Care Provider Torin Sarmiento Unavailable [phone] REASON FOR VISIT for sooner apt Encounters Encounter Location Date Provider Diagnosis [address] [address] 01/11/2024 Torin Acosta Plan Of Treatment No Information Progress Notes * Claribel MITCHELLOB:1965 ( 60 yo M)Acc No.[id number]:01/11/2024 Progress Note Patient: Milind GANDHI Provider: Georgina Jones DPM :1965 A ge:58 Y S ex:Male Date:01/11/2024 Address:[address] [place], [place] [id number] Pcp:Chandni Ospina Subjective: * Chief Complaints: * [...] Jones DPM Date: 0 01/11/2024 Generated for Autumni ng/Faamandag/eTransmitting on: 06/18/2024 08:54 AM EST
--- OUTSIDE RECORDS SUMMARY | 2025-04-18 08:54 | XMS_ITS | Encounter Summary ---
Author Organization [employer] Address [address] [facility] 7t [place] [address] Care Team Providers Care Hospice Volunteer Coordinator Name Role Phone Kasey Rodriguez MD Primary Care Provide r Reason for Visit * Reason Comments Med Refill Encounter Details Date Type Department Care Team ([facility] Contact Info) Description 04/14/2024 Refill [facility] MEDICINE [address] [place], [place] [phone] Kasey Rodriguez MD 230 [place], [place] [phone] Social History Tobacco Use Types Packs/Day Years [...] with others, in a hotel, in a [place], living outside on the street, on a [...] Description 07/05/2025 9:00 AM EST Office Visit [facility] [address] [place] [phone] Kasey Rodriguez MD 230 [place] [address] documented as of this encounter Visit Diagnoses Not on filedocumented in this encounter Additional Health Concerns Assessment Noted Time PHQ-9 Depression Total Score: 4 03/16/20 23 9:21 AM EDT documented as of this encounter Care Teams Hospice Volunteer Coordinator Relationship Specialty Start Date End Date Kasey Rodriguez MD [address] [place] [phone] PCP - General Internal Medicine 02/23/23 Robert Parkinson 06/12/23 documented as of this encounter
--- OUTSIDE RECORDS SUMMARY | 2025-04-18 08:54 | XMS_ITS | Encounter Summary ---
Author Organization [employer] Address [address] 7t [place] [address] Care Team Providers Care Investment Associate Name Role Phone Kasey Rodriguez MD Primary Care Provide r Reason for Visit * Reason Comments [facility] Recovery Supports Encounter Details Date Type Department Care Team ([facility] st Contact Info) Description 04/13/2025 Patient Outreach [facility] MEDICINE [address] [place] [address] Kavon Trejo Recovery Supports Social History Tobacco [...] with Milind today. Setting: in person at [facility] Recovery Wellness Goals worked on: Social Stability Action taken/next steps: Attended alcohol and drug free activity Additional comments: Kavon Trejo documented in this encounter Plan of Treatment Upcoming Encounters Date Type Department Care Team (Late st Contact Info) Description 07/05/2025 9:00 AM EST Office Visit [facility] MED[facility]INE [address] [place] [address] Kasey Rodriguez MD 230 [place] [address] documented as of this encounter Visit Diagnoses Not on filedocumented in this encounter Additional Health Concerns Assessment Noted Time PHQ-9 Depression Total Score: 2 12/30/19 25 9:22 AM EDT documented as of this encounter Care Teams Investment Associate Relationship Specialty Start Date End Date Kasey Rodriguez MD [address] [place] [phone] PCP - General Internal Medicine 02/23/23 Robert Parkinson 06/12/23 documented as of this encounter
--- OUTSIDE RECORDS SUMMARY | 2025-04-18 08:54 | XMS_ITS | Encounter Summary ---
Author Organization [employer] Address [address] [facility] 7t [place] [address] Care Team Providers Care Wood Sawyer Name Role Phone Kasey Rodriguez MD Primary Care Provide r Reason for Visit * Reason Comments Med Refill Encounter Details Date Type Department Care Team ([facility] Contact Info) Description 04/15/2024 Refill [facility] MED[facility]INE 230 [place], [place] [phone] Kasey Rodriguez MD 230 [place], [place] [phone] Social History Tobacco Use Types Packs/Day Years [...] EST Office Visit [facility] [address] [place] [phone] Kasey Rodriguez MD 230 [place] [address] documented as of this encounter Visit Diagnoses Not on filedocumented in this encounter Additional Health Concerns Assessment Noted Time PHQ-9 Depression Total Score: 4 03/16/20 23 9:21 AM EDT documented as of this encounter Care Teams Wood Sawyer Relationship Specialty Start Date End Date Kasey Rodriguez MD [address] [place] [phone] PCP - General Internal Medicine 02/23/23 Robert Parkinson 06/12/23 documented as of this encounter
--- OUTSIDE RECORDS SUMMARY | 2025-04-18 08:55 | XMS_ITS | Encounter Summary ---
Author Organization [employer] Address [address] [facility] 7t [place] [address] Care Team Providers Care Potable Water Treatment Operator Name Role Phone Kasey Rodriguez MD Primary Care Provide r Encounter Details Date Type Department Care Team ([facility] st Contact Info) Description 09/14/2024 Telephone [facility] MED[facility]INE 230 [place] [address] Desiree Chan, PharmD 230 [place] [address] Social History Tobacco Use Types Packs/Day Years [...] Description 07/05/2025 9:00 AM EST Office Visit [facility] [address] [place] [phone] Kasey Rodriguez MD [address] [place] [phone] documented as of this encounter Visit Diagnoses Not on filedocumented in this encounter Additional Health Concerns Assessment Noted Time PHQ-9 Depression Total Score: 4 03/16/20 23 9:21 AM EDT documented as of this encounter Care Teams Potable Water Treatment Operator Relationship Specialty Start Date End Date Kasey Rodriguez MD [address] [place] [phone] PCP - General Internal Medicine 02/23/23 Robert Parkinson 06/12/23 documented as of this encounter
--- OUTSIDE RECORDS SUMMARY | 2025-04-18 08:55 | XMS_ITS | Encounter Summary ---
Author Organization [id number] Address [address] [facility] [address] 7t [place] [address] Care Team Providers Care Chemical Preparer Name Role Phone Kasey Rodriguez MD Primary Care Provide r Reason for Visit * Reason Comments Med Refill Encounter Details Date Type Department Care Team ([facility] Contact Info) Description 02/07/2025 Refill [facility] 230 [place], [place] [phone] Kasey Rodriguez MD 230 [place], [place] [phone] Essential hypertension Social History Tobacco Use Types [...] Description 07/05/2025 9:00 AM EST Office Visit [facility] [address] [place] [address] Kasey Rodriguez MD 230 [place] [address] documented as of this encounter Visit Diagnoses Diagnosis Essential hypertension Unspecified essential hypertension documented in this encounter Additional Health Concerns Assessment Noted Time PHQ-9 Depression Total Score: 2 12/30/19 25 9:22 AM EDT documented as of this encounter Care Teams Chemical Preparer Relationship Specialty Start Date End Date Kasey Rodriguez MD [address] [place] [phone] PCP - General Internal Medicine 02/23/23 Robert Parkinson 06/12/23 documented as of this encounter
--- OUTSIDE RECORDS SUMMARY | 2025-04-18 08:55 | XMS_ITS | Encounter Summary ---
Author Organization [employer] Address [address] [facility] 7t [place] [address] Care Team Providers Care Account Consultant Name Role Phone Kasey Rodriguez MD Primary Care Provide r Reason for Visit * Reason Comments Med Refill Encounter Details Date Type Department Care Team ([facility] Contact Info) Description 04/13/2024 Refill [facility]INE 230 [place], [place] [phone] Kasey Rodriguez MD 230 [place], [place] [phone] Social History Tobacco Use Types Packs/Day Years [...] with others, in a hotel, in a long-term, living outside on the street, on a [...] 9:00 AM EST Office Visit [facility] [address] [place] [phone] Kasey Rodriguez MD 230 [place] [address] documented as of this encounter Visit Diagnoses Not on filedocumented in this encounter Additional Health Concerns Assessment Noted Time PHQ-9 Depression Total Score: 4 03/16/20 23 9:21 AM EDT documented as of this encounter Care Teams Account Consultant Relationship Specialty Start Date End Date Kasey Rodriguez MD [address] [place] [phone] PCP - General Internal Medicine 02/23/23 Robert Parkinson 06/12/23 documented as of this encounter
--- OUTSIDE RECORDS SUMMARY | 2025-04-18 08:55 | XMS_ITS | Encounter Summary ---
Author Organization [employer] [facility] Address [address] [facility] 7t [place] [address] Care Team Providers Care Printmaker Name Role Phone Kasey Rodriguez MD Primary Care Provide r Encounter Details Date Type Department Care Team (Latest Contact Info) Description 09/11/2021 Abstract [facility] CONVERSIONS Dental, Provider, DDS Social History [...] Description 07/05/2025 9:00 AM EST Office Visit [facility] MEDICINE [address] [place] [address] Kasey Rodriguez MD 230 [place] [address] documented as of this encounter Procedures Procedure Name Priority Date/Time Associated Diagnosis Comments 2,3,5,8,9,12,14,15 PARTIAL DENTURE - CAST METAL Routine 09/11/2021 12:00 AM EDT documented in this encounter Visit Diagnoses Not on filedocumented in this encounter Care Teams Printmaker Relationship Specialty Start Date End Date Kasey Rodriguez MD [address] [place] [address] [phone] PCP - General Internal Medicine 02/23/23 Robert Parkinson 06/12/23 documented as of this encounter
--- OUTSIDE RECORDS SUMMARY | 2025-04-18 08:55 | XMS_ITS | Encounter Summary ---
Author Organization [employer] Address [address] [facility] 7t [place] [address] Care Team Providers Care Brim Pouncer Name Role Phone Kasey Rodriguez MD Primary Care Provide r Reason for Visit * Reason Comments Med Refill Encounter Details Date Type Department Care Team ([facility] st Contact Info) Description 03/16/2024 Refill [facility] MEDICINE 230 [place], [place] [phone] Kasey Rodriguez MD [address] [place], [place] [phone] Essential hypertension Social History Tobacco Use Types [...] with others, in a hotel, in a group home, living outside on the street, on [...] 07/05/2025 9:00 AM EST Office Visit [facility] MEDICINE [address] [place] [address] Kasey Rodriguez MD 230 [place] [address] documented as of this encounter Visit Diagnoses Diagnosis Essential hypertension Unspecified essential hypertension documented in this encounter Additional Health Concerns Assessment Noted Time PHQ-9 Depression Total Score: 4 03/16/20 23 9:21 AM EDT documented as of this encounter Care Teams Brim Pouncer Relationship Specialty Start Date End Date Kasey Rodriguez MD [address] [place] [phone] PCP - General Internal Medicine 02/23/23 Robert Caring 06/12/23 documented as of this encounter
--- OUTSIDE RECORDS SUMMARY | 2025-04-18 08:55 | XMS_ITS | Encounter Summary ---
Author Organization [employer] Address [address] [facility] 7t [place] [address] Care Team Providers Care Call Specialist Name Role Phone Kasey Rodriguez MD Primary Care Provide r Reason for Visit * Reason Comments Med Refill Encounter Details Date Type Department Care Team ([facility] st Contact Info) Description 09/21/2024 Refill [facility] MEDICINE 230 [place], [place] [phone] Kasey Rodriguez MD 230 [place], [place] [phone] Social History Tobacco Use Types Packs/Day Years [...] with others, in a hotel, in a detention, living outside on the street, on a [...] Description 07/05/2025 9:00 AM EST Office Visit [facility] MEDICINE [address] [place] [phone] Kasey Rodriguez MD [address] [place] [address] documented as of this encounter Visit Diagnoses Not on filedocumented in this encounter Additional Health Concerns Assessment Noted Time PHQ-9 Depression Total Score: 4 03/16/20 23 9:21 AM EDT documented as of this encounter Care Teams Call Specialist Relationship Specialty Start Date End Date Kasey Rodriguez MD [address] [place] [phone] PCP - General Internal Medicine 02/23/23 Robert Parkinson 06/12/23 documented as of this encounter
--- OUTSIDE RECORDS SUMMARY | 2025-04-18 08:55 | XMS_ITS | Encounter Summary ---
Author Organization [employer] Address [address] [facility] 7t [place] [address] Care Team Providers Care Public Health Microbiologist Name Role Phone Kasey Rodriguez MD Primary Care Provide r Reason for Visit * Reason Comments Med Refill Encounter Details Date Type Department Care Team ([facility] Contact Info) Description 01/03/2024 Refill [facility]INE 230 [place], [place] [phone] Kasey Rodriguez MD 230 [place], [place] [phone] Chronic obstructive pulmonary disease, unspecified COPD type [...] 9:00 AM EST Office Visit [facility] MEDICINE [address] [place] [address] [phone] Kasey Rodriguez MD 230 [place] [address] documented as of this encounter Visit Diagnoses Diagnosis Chronic obstructive pulmonary disease, unspecified COPD type (CMS/HCC) (HCC) documented in this encounter Additional Health Concerns Assessment Noted Time PHQ-9 Depression Total Score: 4 03/16/20 23 9:21 AM EDT documented as of this encounter Care Teams Public Health Microbiologist Relationship Specialty Start Date End Date Kasey Rodriguez MD [address] [place] [phone] PCP - General Internal Medicine 02/23/23 Robert Parkinson 06/12/23 documented as of this encounter
--- OUTSIDE RECORDS SUMMARY | 2025-04-18 08:55 | XMS_ITS | Encounter Summary ---
Author Organization [employer] [facility] Address [address] [facility] 7t [place] [address] Care Team Providers Care Funeral Home Associate Name Role Phone Kasey Rodriguez MD Primary Care Provide r Encounter Details Date Type Department Care Team (Latest Contact Info) Description 10/01/2018 Abstract [facility] CONVERSIONS Dental, Provider, DDS Social History [...] Description 07/05/2025 9:00 AM EST Office Visit [facility] MEDICINE 230 [place] [address] Kasey Rodriguez MD 230 [place] [address] documented as of this encounter Visit Diagnoses Not on filedocumented in this encounter Care Teams Funeral Home Associate Relationship Specialty Start Date End Date Kasey Rodriguez MD [address] [place] [address] [phone] PCP - General Internal Medicine 02/23/23 Robert Parkinson 06/12/23 documented as of this encounter
--- OUTSIDE RECORDS SUMMARY | 2025-04-18 08:55 | XMS_ITS | Encounter Summary ---
Author Organization [employer] Address [address] [facility] 7t [place] [address] Care Team Providers Care Animal Herder Name Role Phone Kasey Rodriguez MD Primary Care Provide r Reason for Visit * Reason Comments Med Refill Encounter Details Date Type Department Care Team ([facility] Contact Info) Description 01/27/2024 Refill [facility] MEDICINE 230 [place], [place] [phone] Kasey Rodriguez MD 230 [place], [place] [phone] Chronic obstructive pulmonary disease, unspecified COPD type [...] Description 07/05/2025 9:00 AM EST Office Visit [facility] MED[facility]INE [address] [place] [address] [phone] Kasey Rodriguez MD 230 [place] [address] documented as of this encounter Visit Diagnoses Diagnosis Chronic obstructive pulmonary disease, unspecified COPD type (CMS/HCC) (HCC) documented in this encounter Additional Health Concerns Assessment Noted Time PHQ-9 Depression Total Score: 4 03/16/20 23 9:21 AM EDT documented as of this encounter Care Teams Animal Herder Relationship Specialty Start Date End Date Kasey Rodriguez MD [address] [place] [phone] PCP - General Internal Medicine 02/23/23 Robert Parkinson 06/12/23 documented as of this encounter
--- OUTSIDE RECORDS SUMMARY | 2025-04-18 08:55 | XMS_ITS | Clinical Summary ---
Author Organization [employer] Address [address] [facility] 7t [place] [address] Care Team Providers Care Engine Head Repairer Name Role Phone Kasey Rodriguez MD Primary [...] hyperglycemia, without long-term current use of insulin ([facility]) TAKE ONE TABLET BY MOUTH EVERY MORNING DO NOT BREAK, CRUSH, DISSOLVE OR CHEW ^1R1 30 tablet 11 4 Active Lancets (OneTouch Delica Plus [id number]) miscIndications: Type 2 diabetes mellitus with hyperglycemia, without long-term current use of insulin ([facility]) USE DIRECTED TWO TIMES A DAY (BULK) 100 each 11 4 Active OneTouch Ultra Test test stripIndications :Type 2 diabetes mellitus with hyperglycemia, without long-term current use of insulin ([facility]) USE DIRECTED TWO TIMES A DAY (BULK) [...] Peripheral neuropathy 03/06/2021 Overview (06/23/2024): Of feet, [facility] Aortic dilatation 06/21/2020 Overview (06/23/2024): [...] Farrell Obstructive sleep apnea 03/25/2013 Overview (06/23/2024): [facility] Polysomnogram: Date 06/22/2013; Wt 225# SE 40%; SM 65%; REM 10%; RDI 9 HI 8, worse in REM (RDI 51 AHI 48) Central apneas 0 Obstructive apneas 0 Mixed apneas 0 hypopneas 22; RERAs 5 ;average oxygen saturation 95% (lowest 77% - without saturations <88% for 5% or more of study); PLMs 9. [facility] Polysomnogram treatment study. Date 07/21/2013. SE 61 [...] Department Care Team Description 04/13/2025 Patient Outreach [address] [address] Kavon Trejo Recovery Supports 04/11/2025 9:00 AM EDT Office Visit [address] [address] Kasey Rodriguez MD Type 2 diabetes mellitus with hyperglycemia, without long-term current use of insulin (HCC) (Primary Dx); Essential hypertension; Severe obesity with body mass index (BMI) of 35.0 to 39.9 with comorbidity (HCC); Screening for colon cancer; Onychomycosis; Dietary counseling; Exercise counseling; Encounter for immunization; Encounter for vaccination 04/11/2025 Travel 04/10/[address] [address] Kasey Rodriguez MD Chart Prep 04/04/2025 Refill [facility] MEDICINE [address] [place] [address] [phone] Kasey Rodriguez MD Allergic rhinitis, unspecified seasonality, unspecified trigger; Type 2 diabetes mellitus with hyperglycemia, without long-term current use of insulin (HCC) 02/28/2025 Refill [facility] MEDICINE [address] [place] [address] [phone] Kasey Rodriguez MD Essential hypertension 02/10/2025 Orders Only [facility] MEDICINE [address] [place] [phone] Kasey Rodriguez MD Allergic rhinitis, unspecified seasonality, unspecified trigger (Primary Dx) 02/10/[address] [place] [address] Kasey Rodriguez MD Med Refill 02/07/2025 Refill [facility] MEDICINE [address] [place] [address] Kasey Rodriguez MD Essential hypertension 01/26/2025 Telephone [facility] MED & PEDS [address] [place] [address] Kasey Rodriguez MD OCT RECALL 01/17/2025 Telephone [facility] MEDICINE [address] [place] [address] Kasey Rodriguez MD FYI from Last 3 [...] the past 12 months, has t he [employer], gas, oil or water [employer] threatened to shut off services in your [...] 9:00 AM EST Office Visit [facility] MEDICINE [address] [place] [address] Kasey Rodriguez MD [address] [place] [address] Health Maintenance Due Date Last Done Comments [...] of insulin ([facility]/HCC) Major depressive disorder with current active episode, [...] of insulin ([facility]/HCC) Major depressive disorder with current active episode, [...] [facility] Creatinine, Urine 141.17 mg/dL [facility] Microalbumin Urine 15.0 mg/L [facility] Microalbum Creatinine Ratio Ur 10.6 <30 ug/mg cr [facility] Comment:Albumin/Creatinine R atio Reference Ranges: Normal: < 30 ug/mg creatinine Microalbuminuria: 30 - 300 ug/mg creatinineClinical Albuminuria: > 300 ug/mg creatinine Urine (Urine, Random) 12/29/2024 10:18 AM EDT 12/29/2024 11:17 AM EDT Kasey Menjivar MD LAB URINE ORDERABLES Final Result [facility] [address] [place] [phone] * Hepatitis C Antibody with Reflex to HCV, RNA, Quantitative, Real-Time PCR (09/27/2024 2:12 PM EDT) [facility] Hepatitis C Antibody Nonreactive Nonreactive [facility] Comment:Antibodies to HCV no t detected; does not exclude early acuteHCV infection. Blood Venous blood specimen / Unknown 09/27/2024 2:12 PM EDT 09/27/2024 4:10 PM EDT Kasey Menjivar MD LAB BLOOD ORDERABLES Final Result Performing Organization Address City/[facility]/ZIP Co de Phone Number [facility] [address] [place] [phone] * HIV-1/2 Antigen and Antibodies, Fourth Generation, with Reflexes (09/27/2024 2:12 PM EDT) [facility] HIV AB/AG Nonreactive Nonreactive [facility] Comment:HIV-1 p24 Ag and/or HIV-1/HIV-2 Ab not detected.A test result that is nonreactive does not exclude thepossibility of exposure to or infection with HIV-1 and/orHIV-2. Nonreactive results in this assay for individualswith prior exposure to HIV-1 and/or HIV-2 may be due toantigen and antibody levels that are below the limit ofdetection of this assay.The [employer] HIV Ag/Ab Combo assay result andsupplemental assay results should be interpreted inconjunction with the patient's clinical presentation,history and other laboratory results. If the results areinconsistent with clinical evidence, additional testing issuggested to confirm the result. Blood Venous blood specimen / Unknown 09/27/2024 2:12 PM EDT 09/27/2024 4:10 PM EDT us Kasey Menjivar MD LAB BLOOD ORDERABLES Final Result Performing Organization Address City/[facility]/ZIP Co de Phone Number [facility] [address] [place] [phone] * (ABNORMAL) Lipid Panel, Standard (09/27/2024 2:12 PM EDT) [facility] Triglycerides 84 <150 mg/dL [facility] Comment:Desirable Triglyceri de: less than 150 mg/dLBorderline High Triglyceride 150-199 mg/dLHigh Triglyceride: 200-499 mg/dLVery High Triglyceride: greater than or equal to 5OO mg/dL Cholesterol 99 <200 mg/dL [facility] Comment:Desirable Cholestero l: less than 200 mg/dLBorderline High Cholesterol: 200-239 mg/dLHigh Cholesterol: greater than 239 mg/dL LDL Cholesterol Calculated 43 <100 mg/dL [facility] Comment:Desirable LDL: less than 100 mg/dLNear Optimal/Above Optimal LDL: 110- 129 mg/dLBorderline High LDL: 130-159 mg/dLHigh LDL: 160-189 mg/dLVery High LDL: greater than or equal to 190 mg/dL HDL Cholesterol 40(L) >40 mg/dL [facility] Comment:Desirable HDL: great er than 40 mg/dL Note: This HDL assay may give artificially low results in patients with liver disease. Blood Venous blood specimen / Unknown 09/27/2024 2:12 PM EDT 09/27/2024 4:10 PM EDT us Kasey Menjivar MD LAB BLOOD ORDERABLES Final Result [facility] [address] [place] [phone] from Last 3 Months or Most Recently Relevant to Health Maintenance [place] [address] [place] [address] STANDARD [facility] ONE CARE < 65 DENTAL - [facility] Care Teams Engine Head Repairer Relationship Specialty Start Date End Date Kasey Rodriguez MD [address] [place] [address] PCP - General Internal Medicine 02/23/23 Robert Parkinson 06/12/23
--- OUTSIDE RECORDS SUMMARY | 2025-04-18 08:55 | XMS_ITS | Encounter Summary ---
Author Organization [employer] Address [address] [facility] [address] 7t [place] [address] Care Team Providers Care Garment Parts Cutter Hand Name Role Phone Kasey Rodriguez MD Primary Care Provide r Reason for Visit * Reason Comments Med Refill Encounter Details Date Type Department Care Team ([facility] st Contact Info) Description 04/04/2025 Refill [facility] MEDICINE [address] [place], [place] [phone] Kasey Rodriguez MD 230 [place], [place] [phone] Allergic rhinitis, unspecified seasonality, unspecified trigger; Type [...] Description 07/05/2025 9:00 AM EST Office Visit [facility] MEDICINE [address] [place] [phone] Kasey Rodriguez MD 230 [place] [address] documented as of this encounter Visit Diagnoses Diagnosis Allergic rhinitis, unspecified seasonality, unspecified trigger Type 2 diabetes mellitus with hyperglycemia, without long-term current use of insulin (HCC) documented in this encounter Additional Health Concerns Assessment Noted Time PHQ-9 Depression Total Score: 2 12/30/19 25 9:22 AM EDT documented as of this encounter Care Teams Garment Parts Cutter Hand Relationship Specialty Start Date End Date Kasey Rodriguez MD [address] [place] [phone] PCP - General Internal Medicine 02/23/23 Robert Parkinson 06/12/23 documented as of this encounter
--- OUTSIDE RECORDS SUMMARY | 2025-04-18 08:55 | XMS_ITS | Encounter Summary ---
Author Organization [employer] Address [address] [facility] 7t [place] [address] Care Team Providers Care Fast Food Worker Name Role Phone Kasey Rodriguez MD Primary Care Provide r Reason for Visit * Reason Comments Med Refill Encounter Details Date Type Department Care Team ([facility] Contact Info) Description 05/10/2024 Refill [facility] MEDICINE [address] [place], [place] [phone] Kasey Rodriguez MD 230 [place], [place] [phone] Type 2 diabetes mellitus with hyperglycemia, without long-term current use of insulin ([facility]); Chronic obstructive pulmonary disease, unspecified COPD type ([facility]) Social History Tobacco Use Types Packs/Day [...] Description 07/05/2025 9:00 AM EST Office Visit [facility] MEDICINE [address] [place] [address] Kasey Rodriguez MD [address] [place] [address] documented as of this encounter Visit Diagnoses Diagnosis Type 2 diabetes mellitus with hyperglycemia, without long-term current use of insulin (HCC) Chronic obstructive pulmonary disease, unspecified COPD type (CMS/HCC) (HCC) documented in this encounter Additional Health Concerns Assessment Noted Time PHQ-9 Depression Total Score: 4 03/16/20 23 9:21 AM EDT documented as of this encounter Care Teams Fast Food Worker Relationship Specialty Start Date End Date Kasey Rodriguez MD [address] [place] [address] PCP - General Internal Medicine 02/23/23 Robert Parkinson 06/12/23 documented as of this encounter
--- OUTSIDE RECORDS SUMMARY | 2025-04-18 08:55 | XMS_ITS | Patient Health Record ---
Author Organization [facility] Address [address] [place] [address] Care Team Providers Care Pharmacist In Charge Owner Name Role Phone Chandni Ospina Primary Care Provider Torin Sarmiento Unavailable [phone] Allergies Allergen (clinical drug ingredient) Drug/Non Drug [...] Status Risk Notes Problem Acquired hallux valgus (70754439) Hallux valgus (acquired), left foot (M20.12) Active confirmed Problem Acquired hallux valgus (70611984) Hallux valgus (acquired), right foot (M20.11) Active confirmed Problem Polyneuropathy due to type 2 diabetes mellitus (267464972) Type 2 diabetes mellitus with diabetic polyneuropathy (E11.42) Active confirmed Problem Polyneuropathy due to diabetes mellitus type I (532461049) Type 1 diabetes mellitus with diabetic polyneuropathy (E10.42) Active confirmed Plan Of Treatment Pending Test Test Name Order Date X ray : Foot, left 3V 01/23/2021 X ray : Foot, right 3V 01/23/2021 [id number] SKIN LESIONS, OVER 4 01/24/20 21 [id number] SKIN LESIONS, OVER 4 05/13/20 21 [id number] SKIN LESIONS, OVER 4 08/12/19 22 Insurance Providers Payer Name Payer Address Payer Phone Subscriber Number Group Number Insured Name Patient Relationship to Insured Coverage Start Date Coverage End Date [facility] [employer] Claims [address] [place] [id number] Milind Whitman Self - patient is the [...]
--- OUTSIDE RECORDS SUMMARY | 2025-04-18 08:55 | XMS_ITS | Encounter Summary ---
Author Organization [employer] Address [address] [facility] 7t [place] [address] Care Team Providers Care Emergency Medicine Name Role Phone Kasey Rodriguez MD Primary Care Provide r Reason for Visit * Reason Comments Med Refill Encounter Details Date Type Department Care Team ([facility] Contact Info) Description 05/11/2024 Refill [facility] MEDICINE [address] [place], [place] [phone] Kasey Rodriguez MD [address] [place], [place] [phone] Type 2 diabetes mellitus with hyperglycemia, without long-term current use of insulin ([facility]); Chronic obstructive pulmonary disease, unspecified COPD type ([facility]) Social History Tobacco Use Types Packs/Day Years [...] EST Office Visit [facility] MEDICINE [address] [place] [address] Kasey Rodriguez MD [address] [place] [address] documented as of this encounter Visit Diagnoses Diagnosis Type 2 diabetes mellitus with hyperglycemia, without long-term current use of insulin (HCC) Chronic obstructive pulmonary disease, unspecified COPD type (CMS/HCC) (HCC) documented in this encounter Additional Health Concerns Assessment Noted Time PHQ-9 Depression Total Score: 4 03/16/20 23 9:21 AM EDT documented as of this encounter Care Teams Emergency Medicine Relationship Specialty Start Date End Date Kasey Rodriguez MD [address] [place] [address] PCP - General Internal Medicine 02/23/23 Robert Parkinson 06/12/23 documented as of this encounter
--- OUTSIDE RECORDS SUMMARY | 2025-04-18 08:55 | XMS_ITS | Encounter Summary ---
Author Organization [employer] [facility] Address [address] [facility] 7t [place] [address] Care Team Providers Care Floating Labor Gang Supervisor Name Role Phone Kasey Rodriguez MD Primary Care Provide r Encounter Details Date Type Department Care Team (Latest Contact Info) Description 10/22/2020 Abstract [facility] CONVERSIONS Dental, Provider, DDS Social History Tobacco [...] Description 07/05/2025 9:00 AM EST Office Visit [facility] MEDICINE [address] [place] [address] Kasey Rodriguez MD 230 [place] [address] documented as of this encounter Visit Diagnoses Not on filedocumented in this encounter Care Teams Floating Labor Gang Supervisor Relationship Specialty Start Date End Date Kasey Rodriguez MD [address] [place] [address] [phone] PCP - General Internal Medicine 02/23/23 Robert Parkinson 06/12/23 documented as of this encounter
--- OUTSIDE RECORDS SUMMARY | 2025-04-18 08:55 | XMS_ITS | Encounter Summary ---
Author Organization [employer] Address [address] [facility] 7t [place] [address] Care Team Providers Care Behavioral Therapist Name Role Phone Kasey Rodriguez MD Primary Care Provide r Reason for Visit * Reason Comments Med Refill Encounter Details Date Type Department Care Team ([facility] Contact Info) Description 01/26/2024 Refill [facility] MEDICINE [address] [place], [place] [phone] Kasey Rodriguez MD 230 [place], [place] [phone] Chronic obstructive pulmonary disease, unspecified COPD type [...] Description 07/05/2025 9:00 AM EST Office Visit [facility] MEDICINE [address] [place] [address] [phone] Kasey Rodriguez MD [address] [place] [address] documented as of this encounter Visit Diagnoses Diagnosis Chronic obstructive pulmonary disease, unspecified COPD type (CMS/HCC) (HCC) documented in this encounter Additional Health Concerns Assessment Noted Time PHQ-9 Depression Total Score: 4 03/16/20 23 9:21 AM EDT documented as of this encounter Care Teams Behavioral Therapist Relationship Specialty Start Date End Date Kasey Rodriguez MD [address] [place] [phone] PCP - General Internal Medicine 02/23/23 Robert Parkinson 06/12/23 documented as of this encounter
--- OUTSIDE RECORDS SUMMARY | 2025-04-18 08:55 | XMS_ITS | Encounter Summary ---
Author Organization [employer] Address [address] [facility] 7t [place] [address] Care Team Providers Care Scarfer Operator Name Role Phone Kasey Rodriguez MD Primary Care Provide r Reason for Visit * Reason Comments Med Refill Encounter Details Date Type Department Care Team ([facility] Contact Info) Description 04/13/2024 Refill [facility] MEDICINE [address] [place], [place] [phone] Kasey Rodriguez MD 230 [place], [place] [phone] Social History Tobacco Use Types Packs/Day Years [...] Description 07/05/2025 9:00 AM EST Office Visit [facility] MEDICINE [address] [place] [phone] Kasey Rodriguez MD [address] [place] [address] documented as of this encounter Visit Diagnoses Not on filedocumented in this encounter Additional Health Concerns Assessment Noted Time PHQ-9 Depression Total Score: 4 03/16/20 23 9:21 AM EDT documented as of this encounter Care Teams Scarfer Operator Relationship Specialty Start Date End Date Kasey Rodriguez MD [address] [place] [phone] PCP - General Internal Medicine 02/23/23 Robert Parkinson 06/12/23 documented as of this encounter
[2025-04-18 09:18] LABS: Ferritin 164 ng/mL (20-250)
[2025-04-18 09:33] LABS: Folate 10.7 ng/mL (> or = 4.0); Vitamin B12 537 pg/mL (200-900)
--- OUTSIDE RECORDS SUMMARY | 2025-05-30 19:00 | XMS_ITS | Clinical Summary ---
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 Name Role Phone HOMAR BALLARD MD, SERJIO Unavailable Clover SALCIDO RN, ARIANNA Unavailable Unavailable STEPHEN ENCINAS, DAVID Unavailable Unavailable Payers Payer Name Policy Type Policy Number Effective Date Expira tion Date [facility] [id number] MEDICAID [place] - [place] [id number] MEDICARE - [facility] - [facility] [id number] Problems Condition Name Condition Details Condition Category [...] 6.8 mg/mL eye drops 2022-06 00:00: 00 04-11 23:59 :00 No [id number] 1 drops TWICE DAILY 1 drops TWICE DAILY (route: ophthalmic (eye)) Med Classific ation: Ophthalmi c Agents Ventolin HFA 90 mcg/actuati on aerosol inhaler 2022-06 00:00: 00 04-11 23:59 :00 No [id number] Unavailable 2 puff EVERY 4 HOURS 2 puff EVERY 4 HOURS (route: inhalation ) Med Classific ation: Respirato ry Therapy Agents lisinopril 10 mg tablet 2022-06 00:00: 00 04-11 23:59 :00 No [id number] Unavailable 10 mg EVERY DAY 10 mg EVERY DAY (route: oral) Med Classific ation: Cardiovas cular Therapy Agents verapamil ER (PM) 100 mg capsule 24hr pellet CT,ext.rele ase 2022-06 00:00: 00 09-13 23:59 :00 No [id number] 100 mg AT BEDTIME 100 mg AT BEDTIME (route: oral) Med Classific ation: Cardiovas cular Therapy Agents clonazepam 2 mg tablet 2022-06 00:00: 00 01-30 23:59 :00 No [id number] 2 mg AT BEDTIME 2 mg AT BEDTIME (route: oral) Med Classific ation: Central Nervous System Agents duloxetine 60 mg capsule,del ayed release 2022-06 00:00: 00 04-11 23:59 :00 No [id number] 60 mg EVERY AM 60 mg EVERY AM (route: oral) Med Classific ation: Central Nervous System Agents trazodone 150 mg tablet 2022-06 00:00: 00 04-11 23:59 :00 No [id number] 150 mg AT BEDTIME NEEDED 150 mg AT BEDTIME NEEDED (route: oral) Med Classific ation: Central Nervous System Agents aspirin 81 mg tablet,yaa yed release 2022-06 00:00: 00 04-11 23:59 :00 No [id number] 81 mg EVERY AM 81 mg EVERY AM (route: oral) Med Classific ation: Hematolog ical Agents Flomax 0.4 mg capsule 2022-06 00:00: 00 01-30 23:59 :00 No [id number] 0.4 mg BEDTIME 0.4 mg BEDTIME (route: oral) Med Classific ation: Genitouri nary Therapy Galzin 50 mg (zinc) capsule 2022-06 00:00: 00 09-13 23:59 :00 No [id number] 50 mg DAILY 50 mg DAILY (route: oral) Med Classific ation: Antidotes and other Reversal Agents glipizide 5 mg tablet 2022-06 00:00: 00 04-11 23:59 :00 No [id number] 5 mg EVERY AM 5 mg EVERY AM (route: oral) Med Classific ation: Endocrine loratadine 10 mg tablet 2022-06 00:00: 00 04-11 23:59 :00 No [id number] 10 mg EVERY AM 10 mg EVERY AM (route: oral) Med Classific ation: Respirato ry Therapy Agents montelukast 10 mg tablet 2022-06 00:00: 00 09-13 23:59 :00 No [id number] 10 mg BEDTIME 10 mg BEDTIME (route: oral) Med Classific ation: Respirato ry Therapy Agents omeprazole 20 mg tablet,yaa yed release 2022-06 00:00: 00 09-13 23:59 :00 No [id number] 20 mg 2 TIMES DAILY 20 mg 2 TIMES DAILY (route: oral) Med Classific ation: Gastroint estinal Therapy Agents ropinirole 0.5 mg tablet 2022-06 00:00: 00 09-13 23:59 :00 No [id number] 0.5 mg BEDTIME 0.5 mg BEDTIME (route: oral) Med Classific ation: Central Nervous System Agents rosuvastati n 40 mg tablet 2022-06 00:00: 00 04-11 23:59 :00 No [id number] 40 mg BEDTIME 40 mg BEDTIME (route: oral) Med Classific ation: Cardiovas cular Therapy Agents vitamin A 2,400 mcg capsule 2022-06 00:00: 00 09-13 23:59 :00 No [id number] 2400 mcg DAILY 2400 mcg DAILY (route: oral) Med Classific ation: Electroly te Balance-N utritiona l Products Vitamin C 1,000 mg tablet 2022-06 00:00: 00 09-13 23:59 :00 No [id number] 1000 mg EVERY AM 1000 mg EVERY AM (route: oral) Med Classific ation: Electroly te Balance-N utritiona l Products Vitamin D3 50 mcg (2,000 unit) capsule 2022-06 00:00: 00 09-13 23:59 :00 No [id number] 50 mcg EVERY AM 50 mcg EVERY AM (route: oral) Med Classific ation: Electroly te Balance-N utritiona l Products vitamin E 268 mg (400 unit) capsule 2022-06 00:00: 00 09-13 23:59 :00 No [id number] 268 mg DAILY 268 mg DAILY (route: oral) Med Classific ation: Electroly te Balance-N utritiona l Products quetiapine 50 mg tablet 09-13 00:00: 00 01-30 23:59 :00 No [id number] 50 mg BEDTIME 50 mg BEDTIME (route: oral) Med Classific ation: Central Nervous System Agents fluticasone propionate 250 mcg/actuati on blister powder for inhalation 02-28 00:00: 00 04-11 23:59 :00 No [id number] 1 inhalat ion 2 TIMES DAILY 1 inhalation 2 TIMES DAILY (route: inhalation ) Med Classific ation: Respirato ry Therapy Agents aspirin 81 mg tablet,yaa yed release 2024-06 00:00: 00 Yes [id number] 81 mg EVERY AM 81 mg EVERY AM (route: oral) Med Classific ation: Hematolog ical Agents dorzolamide 22.3 mg-timolol 6.8 mg/mL eye drops 2024-06 00:00: 00 Yes [id number] 1 drops EVERY AM 1 drops EVERY AM (route: ophthalmic (eye)) Med Classific ation: Ophthalmi c Agents duloxetine 60 mg capsule,del ayed release 2024-06 00:00: 00 Yes [id number] 60 mg BEDTIME 60 mg BEDTIME (route: oral) Med Classific ation: Central Nervous System Agents fluticasone propionate 250 mcg/actuati on blister powder for inhalation 2024-06 00:00: 00 Yes [id number] 1 inhalat ion 2 TIMES DAILY 1 inhalation 2 TIMES DAILY (route: inhalation ) Med Classific ation: Respirato ry Therapy Agents glipizide 5 mg tablet 2024-06 00:00: 00 Yes [id number] 5 mg EVERY AM 5 mg EVER Y AM (route: oral) Med Classific ation: Endocrine lisinopril 10 mg tablet 2024-06 00:00: 00 Yes [id number] 10 mg EVERY AM 10 mg EVERY AM (route: oral) Med Classific ation: Cardiovas cular Therapy Agents loratadine 10 mg tablet 2024-06 00:00: 00 Yes [id number] 10 mg EVERY AM 10 mg EVERY AM (route: oral) Med Classific ation: Respirato ry Therapy Agents rosuvastati n 40 mg tablet 2024-06 00:00: 00 Yes [id number] 40 mg BEDTIME 40 mg BEDTIME (route: oral) Med Classific ation: Cardiovas cular Therapy Agents trazodone 150 mg tablet 2024-06 00:00: 00 Yes [id number] 150 mg BEDTIME 150 mg BEDTIME (route: oral) Med Classific ation: Central Nervous System Agents Ventolin HFA 90 mcg/actuati on aerosol inhaler 2024-06 00:00: 00 Yes [id number] 2 puff EVERY 4-6 HOURS NEEDED 2 puff EVERY 4-6 HOURS NEEDED (route: inhalation ) Med Classific ation: Respirato ry Therapy Agents Vital Signs Vital Name Observation Time Observation Value Commen ts Temperature 2025-04-17 18:56:00.000 98.6 [degF] Temperature 2025-04-14 07:43:00.000 98.6 [degF] Temperature 2025-04-13 07:57:00.000 98.6 [degF] Temperature 2025-04-12 07:41:00.000 98.6 [degF] Temperature 2025-04-11 08:15:00.000 98.6 [degF] Temperature 2025-04-10 07:53:00.000 98.6 [degF] Temperature 2025-04-07 07:38:00.000 98.6 [degF] Temperature 2025-04-06 08:07:00.000 98.6 [degF] Temperature 2025-04-05 08:05:00.000 98.6 [degF] Temperature 2025-04-04 07:35:00.000 98.6 [degF] Temperature 2025-04-03 08:03:00.000 98.6 [degF] Pulse 2025-04-17 18:56:00.000 85 /min Pulse 2025-04-14 07:43:00.000 82 /min Pulse 2025-04-13 07:57:00.000 82 /min Pulse 2025-04-12 07:41:00.000 82 /min Pulse 2025-04-11 08:15:00.000 82 /min Pulse 2025-04-10 07:53:00.000 82 /min Pulse 2025-04-07 07:38:00.000 88 /min Pulse 2025-04-06 08:07:00.000 69 /min Pulse 2025-04-05 08:05:00.000 82 /min Pulse 2025-04-04 07:35:00.000 69 /min Pulse 2025-04-03 08:03:00.000 78 /min O2 Saturation (%) 2025-04-17 19:02:00.000 98 % O2 Saturation (%) 2025-04-12 07:47:00.000 98 % O2 Saturation (%) 2025-04-07 07:38:00.000 95 % O2 Saturation (%) 2025-04-06 08:08:00.000 98 % O2 Saturation (%) 2025-04-05 08:06:00.000 98 % O2 Saturation (%) 2025-04-03 08:04:00.000 98 % Respirations 2025-04-17 18:56:00.000 20 /min Respirations 2025-04-14 07:43:00.000 20 /min Respirations 2025-04-13 07:57:00.000 20 /min Respirations 2025-04-12 07:41:00.000 20 /min Respirations 2025-04-11 08:15:00.000 20 /min Respirations 2025-04-10 07:53:00.000 20 /min Respirations 2025-04-07 07:38:00.000 20 /min Respirations 2025-04-06 08:07:00.000 20 /min Respirations 2025-04-05 08:05:00.000 20 /min Respirations 2025-04-04 07:35:00.000 20 /min Respirations 2025-04-03 08:03:00.000 20 /min Weight (lbs) 2025-04-12 07:47:00.000 224 [lb_av] Weight (lbs) 2025-04-07 07:38:00.000 224 [lb_av] Weight (lbs) 2025-04-06 08:08:00.000 224 [lb_av] Weight (lbs) 2025-04-05 08:06:00.000 224 [lb_av] Systolic Blood Pressure 2025-04-17 18:56:00.000 132 mm [Hg] Systolic Blood Pressure 2025-04-14 07:43:00.000 138 mm [Hg] Systolic Blood Pressure 2025-04-13 07:57:00.000 130 mm [Hg] Systolic Blood Pressure 2025-04-12 07:41:00.000 127 mm [Hg] Systolic Blood Pressure 2025-04-11 08:15:00.000 140 mm [Hg] Systolic Blood Pressure 2025-04-10 07:53:00.000 138 mm [Hg] Systolic Blood Pressure 2025-04-07 07:38:00.000 138 mm [Hg] Systolic Blood Pressure 2025-04-06 08:07:00.000 130 mm [Hg] Systolic Blood Pressure 2025-04-05 08:05:00.000 148 mm [Hg] Systolic Blood Pressure 2025-04-04 07:35:00.000 123 mm [Hg] Systolic Blood Pressure 2025-04-03 08:03:00.000 142 mm [Hg] Diastolic Blood Pressure 2025-04-17 18:56:00.000 88 mm [Hg] Diastolic Blood Pressure 2025-04-14 07:43:00.000 72 mm [Hg] Diastolic Blood Pressure 2025-04-13 07:57:00.000 85 mm [Hg] Diastolic Blood Pressure 2025-04-12 07:41:00.000 77 mm [Hg] Diastolic Blood Pressure 2025-04-11 08:15:00.000 78 mm [Hg] Diastolic Blood Pressure 2025-04-10 07:53:00.000 78 mm [Hg] Diastolic Blood Pressure 2025-04-07 07:38:00.000 72 mm [Hg] Diastolic Blood Pressure 2025-04-06 08:07:00.000 77 mm [Hg] Diastolic Blood Pressure 2025-04-05 08:05:00.000 72 mm [Hg] Diastolic Blood Pressure 2025-04-04 07:35:00.000 75 mm [Hg] Diastolic Blood Pressure 2025-04-03 08:03:00.000 78 mm [Hg] Plan of Treatment Planned Activity [...] GOAL FOR HOME HEALTH.] Future Scheduled Test PATIENT GUY S A [...] MANAGEMENT.] Future Scheduled Test SKILLED NU RSE WILL MAINTAIN SITUATIONAL AWARENESS FOR SAFETY AND WILL NOTIFY CLINICAL OUTSOLE COMPRESSOR AND PHYSICIAN/PROVIDER WITH ANY CHANGE IN CONDITION. [code = SKILLED NURSE WILL MAINTAIN SITUATIONAL AWARENESS FOR SAFETY AND WILL NOTIFY CLINICAL OUTSOLE COMPRESSOR AND PHYSICIAN/PROVIDER WITH ANY CHANGE IN CONDITION.] Future Scheduled Test SKILLED NU RSE FOR O/A OF GENERAL HEALTH STATUS OF PAIN, CARDIAC, RESPIRATORY, GASTROINTESTINAL, GENITOURINARY, SKIN, NEUROLOGIC, ENDOCRINE SYSTEMS TO IDENTIFY CHANGES ASSOCIATED WITH EXACERBATION FOR EARLY INTERVENTION OF COMPLICATIONS. [code = SKILLED NURSE FOR O/A OF GENERAL HEALTH STATUS OF PAIN, CARDIAC, RESPIRATORY, GASTROINTESTINAL, GENITOURINARY, SKIN, NEUROLOGIC, ENDOCRINE SYSTEMS TO IDENTIFY CHANGES ASSOCIATED WITH EXACERBATION FOR EARLY INTERVENTION OF COMPLICATIONS.] Future Scheduled Test SKILLED NU RSE TO PRE-POUR MEDICATION PER MEDICATION LIST [code = SKILLED NURSE TO PRE-POUR MEDICATION PER MEDICATION LIST] Future Scheduled Test SKILLED NU RSE FOR [...] PROCESS AND/OR DISRUPTION IN COGNITIVE OPERATIONS AND ACTIVITIES] Future Scheduled Test SKILLED NU RSE FOR [...] SYSTEM TO IDENTIFY CHANGES ASSOCIATED WITH EXACERBATION OF DIABETES) FOR EARLY INTERVENTION OF COMPLICATIONS. [code = SKILLED NURSE FOR O/A AND TEACHING OF ENDOCRINE SYSTEM TO IDENTIFY CHANGES ASSOCIATED WITH EXACERBATION OF DIABETES) FOR EARLY INTERVENTION OF COMPLICATIONS.] Future Scheduled [...] ACCESS COMMUNITY RESOURCES AND PSYCHOSOCIAL SUPPORT SERVICES.] Goal 2023-08-06 Patient Goal - T AKING [...] Patient Goal - T AKING MY MEDS KNOWLEDGE ABOUT MEDICATION AND IDENTIFIED HEALTH ISSUES Goal 2025-03-28 Patient Goal - T AKING MY MEDS [...] CARE WILL BE ESTABLISHED THAT MEETS PATIENT'S [facility] NEEDS AND INCLUDES PATIENT GOAL FOR HOME HEALTH. Goal Provider Goal - PATIENT WILL HAVE SUPPORT MEASURES ESTABLISHED TO PREVENT HOSPITALIZATION AND ED USE AND PATIENT/CAREGIVER WILL VERBALIZE/DEMONSTRATE METHODS TO REDUCE AVOIDABLE HOSPITALIZATION AND ED USE BY END OF EPISODE. Goal Provider Goal - ALTERED MENTAL/BEHAVIORAL STATUS [...] Goal - PATIENT/CAREGIVER WILL VERBALIZE/DEMONSTRATE MANAGEMENT OF ASTHMA RESPIRATORY DISEASE PROCESS. CHANGES IN RESPIRATORY STATUS WILL BE IDENTIFIED AND REPORTED TO PHYSICIAN FOR PROMPT INTERVENTION THROUGHOUT THE CERTIFICATION PERIOD. Goal Provider Goal - PATIENT/CAREGIVER WILL VERBALIZE SIGNS AND SYMPTOMS OF EXACERBATION OF DIABETES ENDOCRINE DIAGNOSIS) TO REPORT TO NURSE/PHYSICIAN THROUGHOUT THE CERTIFICATION PERIOD. Goal Provider Goal - PATIENT/CAREGIVER WILL VERBALIZE/DEMONSTRATE KNOWLEDGE OF DIABETIC MANAGEMENT. CHANGES IN DIABETIC STATUS WILL BE IDENTIFIED AND REPORTED TO PHYSICIAN FOR PROMPT INTERVENTION THROUGHOUT THE CERTIFICATION PERIOD. Goal Provider Goal - PSYCHOSOCIAL NEEDS WILL BE IDENTIFIED AND PLAN IMPLEMENTED TO MINIMIZE RISK THROUGHOUT CERTIFICATION PERIOD. Encounters Start Date/Time End Date/Time Encounter Type Admission Type Attending [facility] Care Department Encounter ID Discharge Date Discharge Status Discharge Condition Discharge Reason Percent Goals Met 2025-04-02 00:00:00 2025-05-31 00:00:00 Outpatient RECERTIFIC DAVID GENT[facility] [id number] [id number]
--- OUTSIDE RECORDS SUMMARY | 2025-05-30 19:00 | XMS_ITS | Clinical Summary ---
Author Organization Unknown Care Team Providers Care Senior Mobile Solutions Architect Name Role Phone HOMAR BALLARD MD, SERJIO Unavailable Clover SALCIDO RN, ARIANNA Unavailable Unavailable STEPHEN ENCINAS, DAVID Unavailable Unavailable Payers Payer Name Policy Type Policy Number Effective Date Expira tion Date [facility] [id number] [place] [id number] MEDIC[place] - [facility] [facility] [id number] Problems Condition Name Condition Details Condition Category [...] 2022-06 00:00: 00 04-11 23:59 :00 No [id number] 1 drops TWICE DAILY 1 drops TWICE DAILY (route: ophthalmic (eye)) Med Classific ation: Ophthalmi c Agents Ventolin HFA 90 mcg/actuati on aerosol inhaler 2022-06 00:00: 00 04-11 23:59 :00 No [id number] Unavailable 2 puff EVERY 4 HOURS 2 puff EVERY 4 HOURS (route: inhalation ) Med Classific ation: Respirato ry Therapy Agents lisinopril 10 mg tablet 2022-06 00:00: 00 04-11 23:59 :00 No [id number] Unavailable 10 mg EVERY DAY 10 mg EVERY DAY (route: oral) Med Classific ation: Cardiovas cular Therapy Agents verapamil ER (PM) 100 mg capsule 24hr pellet CT,ext.rele ase 2022-06 00:00: 00 09-13 23:59 :00 No [id number] 100 mg AT BEDTIME 100 mg AT BEDTIME (route: oral) Med Classific ation: Cardiovas cular Therapy Agents clonazepam 2 mg tablet 2022-06 00:00: 00 01-30 23:59 :00 No [id number] 2 mg AT BEDTIME 2 mg AT BEDTIME (route: oral) Med Classific ation: Central Nervous System Agents duloxetine 60 mg capsule,del ayed release 2022-06 00:00: 00 04-11 23:59 :00 No [id number] 60 mg EVERY AM 60 mg EVERY AM (route: oral) Med Classific ation: Central Nervous System Agents trazodone 150 mg tablet 2022-06 00:00: 00 04-11 23:59 :00 No [id number] 150 mg AT BEDTIME NEEDED 150 mg AT BEDTIME NEEDED (route: oral) Med Classific ation: Central Nervous System Agents aspirin 81 mg tablet,yaa yed release 2022-06 00:00: 00 04-11 23:59 :00 No [id number] 81 mg EVERY AM 81 mg EVERY AM (route: oral) Med Classific ation: Hematolog ical Agents Flomax 0.4 mg capsule 2022-06 00:00: 00 01-30 23:59 :00 No [id number] 0.4 mg BEDTIME 0.4 mg BEDTIME (route: oral) Med Classific ation: Genitouri nary Therapy Galzin 50 mg (zinc) capsule 2022-06 00:00: 00 09-13 23:59 :00 No [id number] 50 mg DAILY 50 mg DAILY (route: oral) Med Classific ation: Antidotes and other Reversal Agents glipizide 5 mg tablet 2022-06 00:00: 00 04-11 23:59 :00 No [id number] 5 mg EVERY AM 5 mg EVERY AM (route: oral) Med Classific ation: Endocrine loratadine 10 mg tablet 2022-06 00:00: 00 04-11 23:59 :00 No [id number] 10 mg EVERY AM 10 mg EVERY AM (route: oral) Med Classific ation: Respirato ry Therapy Agents montelukast 10 mg tablet 2022-06 00:00: 00 09-13 23:59 :00 No [id number] 10 mg BEDTIME 10 mg BEDTIME (route: oral) Med Classific ation: Respirato ry Therapy Agents omeprazole 20 mg tablet,yaa yed release 2022-06 00:00: 00 09-13 23:59 :00 No [id number] 20 mg 2 TIMES DAILY 20 mg 2 TIMES DAILY (route: oral) Med Classific ation: Gastroint estinal Therapy Agents ropinirole 0.5 mg tablet 2022-06 00:00: 00 09-13 23:59 :00 No [id number] 0.5 mg BEDTIME 0.5 mg BEDTIME (route: oral) Med Classific ation: Central Nervous System Agents rosuvastati n 40 mg tablet 2022-06 00:00: 00 04-11 23:59 :00 No [id number] 40 mg BEDTIME 40 mg BEDTIME (route: oral) Med Classific ation: Cardiovas cular Therapy Agents vitamin A 2,400 mcg capsule 2022-06 00:00: 00 09-13 23:59 :00 No [id number] 2400 mcg DAILY 2400 mcg DAILY (route: oral) Med Classific ation: Electroly te Balance-N utritiona l Products Vitamin C 1,000 mg tablet 2022-06 00:00: 00 09-13 23:59 :00 No [id number] 1000 mg EVERY AM 1000 mg EVERY AM (route: oral) Med Classific ation: Electroly te Balance-N utritiona l Products Vitamin D3 50 mcg (2,000 unit) capsule 2022-06 00:00: 00 09-13 23:59 :00 No [id number] 50 mcg EVERY AM 50 mcg EVERY AM (route: oral) Med Classific ation: Electroly te Balance-N utritiona l Products vitamin E 268 mg (400 unit) capsule 2022-06 00:00: 00 09-13 23:59 :00 No [id number] 268 mg DAILY 268 mg DAILY (route: oral) Med Classific ation: Electroly te Balance-N utritiona l Products quetiapine 50 mg tablet 09-13 00:00: 00 01-30 23:59 :00 No [id number] 50 mg BEDTIME 50 mg BEDTIME (route: oral) Med Classific ation: Central Nervous System Agents fluticasone propionate 250 mcg/actuati on blister powder for inhalation 02-28 00:00: 00 04-11 23:59 :00 No [id number] 1 inhalat ion 2 TIMES DAILY 1 inhalation 2 TIMES DAILY (route: inhalation ) Med Classific ation: Respirato ry Therapy Agents aspirin 81 mg tablet,yaa yed release 2024-06 00:00: 00 Yes [id number] 81 mg EVERY AM 81 mg EVERY AM (route: oral) Med Classific ation: Hematolog ical Agents dorzolamide 22.3 mg-timolol 6.8 mg/mL eye drops 2024-06 00:00: 00 Yes [id number] 1 drops EVERY AM 1 drops EVERY AM (route: ophthalmic (eye)) Med Classific ation: Ophthalmi c Agents duloxetine 60 mg capsule,del ayed release 2024-06 00:00: 00 Yes [id number] 60 mg BEDTIME 60 mg BEDTIME (route: oral) Med Classific ation: Central Nervous System Agents fluticasone propionate 250 mcg/actuati on blister powder for inhalation 2024-06 00:00: 00 Yes [id number] 1 inhalat ion 2 TIMES DAILY 1 inhalation 2 TIMES DAILY (route: inhalation ) Med Classific ation: Respirato ry Therapy Agents glipizide 5 mg tablet 2024-06 00:00: 00 Yes [id number] 5 mg EVERY AM 5 mg EVER Y AM (route: oral) Med Classific ation: Endocrine lisinopril 10 mg tablet 2024-06 00:00: 00 Yes [id number] 10 mg EVERY AM 10 mg EVERY AM (route: oral) Med Classific ation: Cardiovas cular Therapy Agents loratadine 10 mg tablet 2024-06 00:00: 00 Yes [id number] 10 mg EVERY AM 10 mg EVERY AM (route: oral) Med Classific ation: Respirato ry Therapy Agents rosuvastati n 40 mg tablet 2024-06 00:00: 00 Yes [id number] 40 mg BEDTIME 40 mg BEDTIME (route: oral) Med Classific ation: Cardiovas cular Therapy Agents trazodone 150 mg tablet 2024-06 00:00: 00 Yes [id number] 150 mg BEDTIME 150 mg BEDTIME (route: oral) Med Classific ation: Central Nervous System Agents Ventolin HFA 90 mcg/actuati on aerosol inhaler 2024-06 00:00: 00 Yes [id number] 2 puff EVERY 4-6 HOURS NEEDED 2 [...] AWARENESS FOR SAFETY AND WILL NOTIFY CLINICAL INSPECTOR AIDE AND PHYSICIAN/PROVIDER WITH ANY CHANGE IN CONDITION. [code = SKILLED NURSE WILL MAINTAIN SITUATIONAL AWARENESS FOR SAFETY AND WILL NOTIFY CLINICAL INSPECTOR AIDE AND PHYSICIAN/PROVIDER WITH ANY CHANGE IN CONDITION.] [...] CARE WILL BE ESTABLISHED THAT MEETS PATIENT'S PENITENTIARY NEEDS AND INCLUDES PATIENT GOAL FOR HOME [...] End Date/Time Encounter Type Admission Type Attending [facility] Care Department Encounter ID Discharge Date Discharge Status Discharge Condition Discharge Reason Percent Goals Met 2025-04-02 00:00:00 2025-05-31 00:00:00 Outpatient RECERTIFIC DAVID GENTILE [facility] [id number] 0.00
== END 2025-04-18 08:30 | disposition home or self-care (01) ==
LOC: HO.LAB 08:29
PROVIDERS: PCP Internal Medicine; Visit Provider Physician Assistant Medical
DX: R53.83 Other fatigue (principal); D64.9 Anemia, unspecified; G47.9 Sleep disorder, unspecified
CPT/HCPCS: 36415; 82607; 82728; 82746; 83090; 83921

== ENCOUNTER 2025-05-15 08:23 | Outpatient (REF) | payer OTHER, SELFPAY ==
--- OUTSIDE RECORDS SUMMARY | 2024-01-11 04:00 | XMS_ITS ---
Author Organization [facility] Address [address] [place] [phone] Care Team Providers Care Echocardiograph Technician Name Role Phone Chandni Ospina Primary Care Provider Torin Sarmiento Unavailable [phone] REASON FOR VISIT for sooner apt Encounters Encounter Location Date Provider Diagnosis [address] [address] 01/11/2024 Torin Acosta Plan Of Treatment No Information Progress Notes * Claribel MITCHELLOB:1965 ( 60 yo M)Acc No.[id number]:01/11/2024 Progress Note Patient: Milind GANDHI Provider: Georgina Jones DPM :1965 A ge:58 Y S ex:Male Date:01/11/2024 Address:[address] [place], [place] [phone] Pcp:Chandni Ospina Subjective: * Chief Complaints: * [...] 0 01/11/2024 Generated for Autumni ng/Faamandag/eTransmitting on: 07/16/2024 08:40 AM EST
--- OUTSIDE RECORDS SUMMARY | 2025-05-15 08:40 | XMS_ITS | Encounter Summary ---
Author Organization [employer] Address [address] [facility] 7t [place] [address] Care Team Providers Care Sales Associate Cashier Name Role Phone Kasey Rodriguez MD Primary Care Provide r Reason for Visit * Reason Comments Med Refill Encounter Details Date Type Department Care Team ([facility] Contact Info) Description 04/14/2024 Refill [facility] MEDICINE [address] [place], [place] [phone] Kasey Rodriguez MD [address] [place], [place] [phone] Social History Tobacco Use Types Packs/Day Years [...] Description 07/05/2025 9:00 AM EST Office Visit [facility] MEDICINE [address] [place] [phone] Kasey Rodriguez MD 230 [place] [address] documented as of this encounter Visit Diagnoses Not on filedocumented in this encounter Additional Health Concerns Assessment Noted Time PHQ-9 Depression Total Score: 4 03/16/20 23 9:21 AM EDT documented as of this encounter Care Teams Sales Associate Cashier Relationship Specialty Start Date End Date Kasey Rodriguez MD [address] [place] [phone] PCP - General Internal Medicine 02/23/23 Robret Parkinson 06/12/23 documented as of this encounter
--- OUTSIDE RECORDS SUMMARY | 2025-05-15 08:40 | XMS_ITS | Encounter Summary ---
Author Organization [employer] [facility] Address [address] [facility] 7t [place] [address] Care Team Providers Care Tape Weaver Name Role Phone Kasey Rodriguez MD Primary Care Provide r Encounter Details Date Type Department Care Team (Latest Contact Info) Description 10/01/2018 Abstract [facility] CONVERSIONS Dental, Provider, DDS Social History Tobacco [...] 9:00 AM EST Office Visit [facility] MEDICINE [address] [place] [address] Kasey Rodriguez MD [address] [place] [address] documented as of this encounter Visit Diagnoses Not on filedocumented in this encounter Care Teams Tape Weaver Relationship Specialty Start Date End Date Kasey Rodriguez MD [address] [place] [address] [phone] PCP - General Internal Medicine 02/23/23 Robert Parkinson 06/12/23 documented as of this encounter
--- OUTSIDE RECORDS SUMMARY | 2025-05-15 08:40 | XMS_ITS | Encounter Summary ---
Author Organization [employer] Address [address] [facility] 7t [place] [address] Care Team Providers Care Application Counselor Name Role Phone Kasey Rodriguez MD Primary Care Provide r Reason for Visit * Reason Comments Med Refill Encounter Details Date Type Department Care Team ([facility] Contact Info) Description 05/11/2024 Refill [facility] MEDICINE 230 [place], [place] [phone] Kasey Rodriguez MD 230 [place], [place] [phone] Type 2 diabetes mellitus with hyperglycemia, without long-term current use of insulin ([facility]); Chronic obstructive pulmonary disease, unspecified COPD type ([facility]) Social History Tobacco Use Types Packs/Day Years [...] with others, in a hotel, in a snf, living outside on the street, on a [...] Description 07/05/2025 9:00 AM EST Office Visit [facility] MEDICINE [address] [place] [address] Kasey Rodriguez MD [address] [place] [address] documented as of this encounter Visit Diagnoses Diagnosis Type 2 diabetes mellitus with hyperglycemia, without long-term current use of insulin (HCC) Chronic obstructive pulmonary disease, unspecified COPD type (CMS/HCC) (HCC) documented in this encounter Additional Health Concerns Assessment Noted Time PHQ-9 Depression Total Score: 4 03/16/20 23 9:21 AM EDT documented as of this encounter Care Teams Application Counselor Relationship Specialty Start Date End Date Kasey Rodriguez MD [address] [place] [address] PCP - General Internal Medicine 02/23/23 Robert Parkinson 06/12/23 documented as of this encounter
--- OUTSIDE RECORDS SUMMARY | 2025-05-15 08:40 | XMS_ITS | Encounter Summary ---
Author Organization [employer] [facility] Address [address] [facility] 7t [place] [address] Care Team Providers Care Shaker Repairer Name Role Phone Kasey Rodriguez MD Primary Care Provide r Encounter Details Date Type Department Care Team (Latest Contact Info) Description 09/11/2021 Abstract [facility] CONVERSIONS Dental, Provider, DDS Social History Tobacco [...] Office Visit [facility] MEDICINE [address] [place] [address] Kasey Rodriguez MD [address] [place] [address] documented as of this encounter Procedures Procedure Name Priority Date/Time Associated Diagnosis Comments 2,3,5,8,9,12,14,15 PARTIAL DENTURE - CAST METAL Routine 09/11/2021 12:00 AM EDT documented in this encounter Visit Diagnoses Not on filedocumented in this encounter Care Teams Shaker Repairer Relationship Specialty Start Date End Date Kasey Rodriguez MD [address] [place] [address] [phone] PCP - General Internal Medicine 02/23/23 Robert Parkinson 06/12/23 documented as of this encounter
--- OUTSIDE RECORDS SUMMARY | 2025-05-15 08:40 | XMS_ITS | Encounter Summary ---
Author Organization [employer] [facility] Address [address] [facility] 7t [place] [address] Care Team Providers Care Named Account Executive Name Role Phone Kasey Rodriguez MD Primary Care Provide r Encounter Details Date Type Department Care Team (Latest Contact Info) Description 10/22/2020 Abstract [facility] CONVERSIONS Dental, Provider, DDS [...] 9:00 AM EST Office Visit [facility] [address] [place] [address] Kasey Rodriguez MD [address] [place] [address] documented as of this encounter Visit Diagnoses Not on filedocumented in this encounter Care Teams Named Account Executive Relationship Specialty Start Date End Date Kasey Rodriguez MD [address] [place] [address] [phone] PCP - General Internal Medicine 02/23/23 Robert Parkinson 06/12/23 documented as of this encounter
--- OUTSIDE RECORDS SUMMARY | 2025-05-15 08:40 | XMS_ITS | Encounter Summary ---
Author Organization [employer] Address 75 [facility] 7t [place] [address] Care Team Providers Care Tableau Developer Name Role Phone Kasey Rodriguez MD Primary Care Provide r Reason for Visit * Reason Comments Med Refill Encounter Details Date Type Department Care Team ([facility] Contact Info) Description 04/13/2024 Refill [facility] MEDICINE [address] [place], [place] [phone] Kasey Rodriguez MD 230 [place], [place] [phone] Social History Tobacco Use Types Packs/Day Years [...] Description 07/05/2025 9:00 AM EST Office Visit [facility] MEDICINE [address] [place] [phone] Kasey Rodriguez MD 230 [place] [address] documented as of this encounter Visit Diagnoses Not on filedocumented in this encounter Additional Health Concerns Assessment Noted Time PHQ-9 Depression Total Score: 4 03/16/20 23 9:21 AM EDT documented as of this encounter Care Teams Tableau Developer Relationship Specialty Start Date End Date Kasey Rodriguez MD [address] [place] [id number] PCP - General Internal Medicine 02/23/23 Robert Parkinson 06/12/23 documented as of this encounter
--- OUTSIDE RECORDS SUMMARY | 2025-05-15 08:40 | XMS_ITS | Encounter Summary ---
Author Organization [employer] Address 75 [facility] 7t [place] [address] Care Team Providers Care Pharmacognosy Teacher Name Role Phone Kasey Rodriguez MD Primary Care Provide r Reason for Visit * Reason Comments Med Refill Encounter Details Date Type Department Care Team ([facility] Contact Info) Description 04/15/2024 Refill [facility] MEDICINE 230 [place], [place] [phone] Kasey Rodriguez MD 230 [place], [place] [phone] Social History Tobacco Use Types Packs/Day Years [...] with others, in a hotel, in a fdc, living outside on the street, on a [...] Description 07/05/2025 9:00 AM EST Office Visit [facility] MEDICINE [address] [place] [phone] Kasey Rodriguez MD 230 [place] [address] documented as of this encounter Visit Diagnoses Not on filedocumented in this encounter Additional Health Concerns Assessment Noted Time PHQ-9 Depression Total Score: 4 03/16/20 23 9:21 AM EDT documented as of this encounter Care Teams Pharmacognosy Teacher Relationship Specialty Start Date End Date Kasey Rodriguez MD [address] [place] [id number] PCP - General Internal Medicine 02/23/23 Robert Parkinson 06/12/23 documented as of this encounter
--- OUTSIDE RECORDS SUMMARY | 2025-05-15 08:40 | XMS_ITS | Encounter Summary ---
Author Organization [employer] Address 75 [facility] 7t [place] [address] Care Team Providers Care Supervisor White Sugar Name Role Phone Kasey Rodriguez MD Primary Care Provide r Reason for Visit * Reason Comments Med Refill Encounter Details Date Type Department Care Team ([facility] Contact Info) Description 04/13/2024 Refill [facility] MEDICINE [address] [place], [place] [phone] Kasey Rodriguez MD 230 [place], [place] [phone] Social History Tobacco Use Types Packs/Day Years [...] Description 07/05/2025 9:00 AM EST Office Visit [facility] MEDICINE [address] [place] [phone] Kasey Rodriguez MD 230 [place] [address] documented as of this encounter Visit Diagnoses Not on filedocumented in this encounter Additional Health Concerns Assessment Noted Time PHQ-9 Depression Total Score: 4 03/16/20 23 9:21 AM EDT documented as of this encounter Care Teams Supervisor White Sugar Relationship Specialty Start Date End Date Kaesy Rodriguez MD [address] [place] [phone] PCP - General Internal Medicine 02/23/23 Robert Parkinson 06/12/23 documented as of this encounter
--- OUTSIDE RECORDS SUMMARY | 2025-05-15 08:40 | XMS_ITS | Encounter Summary ---
Author Organization [employer] Address 75 [facility] 7t [place] [address] Care Team Providers Care Castings Trimmer Name Role Phone Kasey Rodriguez MD Primary Care Provide r Reason for Visit * Reason Comments Med Refill Encounter Details Date Type Department Care Team ([facility] Contact Info) Description 05/05/2025 Refill [facility] MEDICINE 230 [place], [place] [phone] Kasey Rodriguez MD 230 [place], [place] [phone] Chronic obstructive pulmonary disease, unspecified COPD type (CMS/HCC) (HCC); Asthma, unspecified asthma severity, unspecified whether complicated, unspecified whether persistent Social History Tobacco Use Types Packs/Day Years [...] 07/05/2025 9:00 AM EST Office Visit [facility] MEDICINE [address] [place] [address] Kasey Rodriguez MD 230 [place] [address] documented as of this encounter Visit Diagnoses Diagnosis Chronic obstructive pulmonary disease, unspecified COPD type (CMS/HCC) ([facility]) Asthma, unspecified asthma severity, unspecified whether complicated, unspecified whether persistent documented in this encounter Additional Health Concerns Assessment Noted Time PHQ-9 Depression Total Score: 2 12/30/19 25 9:22 AM EDT documented as of this encounter Care Teams Castings Trimmer Relationship Specialty Start Date End Date Kasey Rodriguez MD 230 [place] [address] PCP - General Internal Medicine 02/23/23 Robert Parkinson 06/12/23 documented as of this encounter
--- OUTSIDE RECORDS SUMMARY | 2025-05-15 08:40 | XMS_ITS | Encounter Summary ---
Author Organization [employer] Address [address] [facility] [address] 7t [place] [address] Care Team Providers Care Ophthalmologist Name Role Phone Kasey Rodriguez MD Primary Care Provide r Reason for Visit * Reason Comments Med Refill Encounter Details Date Type Department Care Team ([facility] st Contact Info) Description 04/04/2025 Refill [facility] MEDICINE 230 [place], [place] [phone] Kasey Rodriguez MD 230 [place], [place] [phone] Allergic rhinitis, unspecified seasonality, unspecified trigger; Type [...] 9:00 AM EST Office Visit [facility] MEDICINE [address] [place] [phone] Kasey Rodriguez MD 230 [place] [address] documented as of this encounter Visit Diagnoses Diagnosis Allergic rhinitis, unspecified seasonality, unspecified trigger Type 2 diabetes mellitus with hyperglycemia, without long-term current use of insulin (HCC) documented in this encounter Additional Health Concerns Assessment Noted Time PHQ-9 Depression Total Score: 2 12/30/19 25 9:22 AM EDT documented as of this encounter Care Teams Ophthalmologist Relationship Specialty Start Date End Date Kasey Rodriguez MD [address] [place] [id number] PCP - General Internal Medicine 02/23/23 Robert Parkinson 06/12/23 documented as of this encounter
--- OUTSIDE RECORDS SUMMARY | 2025-05-15 08:40 | XMS_ITS | Encounter Summary ---
Author Organization [employer] Address 75 [facility] 7t [place] [address] Care Team Providers Care Steamtable Worker Name Role Phone Kasey Rodriguez MD Primary Care Provide r Reason for Visit * Reason Comments Med Refill Encounter Details Date Type Department Care Team ([facility] Contact Info) Description 05/10/2024 Refill [facility] MEDICINE 230 [place], [place] [phone] Kasey Rodriguez MD 230 [place], [place] [phone] Type 2 diabetes mellitus with hyperglycemia, without long-term current use of insulin ([facility]); Chronic obstructive pulmonary disease, unspecified COPD type ([facility]) Social History Tobacco Use Types Packs/Day Years [...] [facility] [address] [place] [address] Kasey Rodriguez MD 230 [place] [address] documented as of this encounter Visit Diagnoses Diagnosis Type 2 diabetes mellitus with hyperglycemia, without long-term current use of insulin (HCC) Chronic obstructive pulmonary disease, unspecified COPD type (CMS/HCC) (HCC) documented in this encounter Additional Health Concerns Assessment Noted Time PHQ-9 Depression Total Score: 4 03/16/20 23 9:21 AM EDT documented as of this encounter Care Teams Steamtable Worker Relationship Specialty Start Date End Date Kasey Rodriguez MD 230 [place] [address] PCP - General Internal Medicine 02/23/23 Robert Parkinson 06/12/23 documented as of this encounter
--- OUTSIDE RECORDS SUMMARY | 2025-05-15 08:41 | XMS_ITS | Encounter Summary ---
Author Organization [employer] Address 75 [facility] 7t [place] [address] Care Team Providers Care Upholstery Covers Inspector Name Role Phone Kasey Rodriguez MD Primary Care Provide r Reason for Visit * Reason Comments Med Refill Encounter Details Date Type Department Care Team ([facility] Contact Info) Description 01/03/2024 Refill [facility] MEDICINE 230 [place], [place] [phone] Kasey Rodriguez MD 230 [place], [place] [phone] Chronic obstructive pulmonary disease, unspecified COPD type [...] Description 07/05/2025 9:00 AM EST Office Visit [facility] MEDICINE [address] [place] [address] [phone] Kasey Rodriguez MD 230 [place] [address] documented as of this encounter Visit Diagnoses Diagnosis Chronic obstructive pulmonary disease, unspecified COPD type (CMS/HCC) (HCC) documented in this encounter Additional Health Concerns Assessment Noted Time PHQ-9 Depression Total Score: 4 03/16/20 23 9:21 AM EDT documented as of this encounter Care Teams Upholstery Covers Inspector Relationship Specialty Start Date End Date Kasey Rodriguez MD [address] [place] [address] PCP - General Internal Medicine 02/23/23 Robert Parkinson 06/12/23 documented as of this encounter
--- OUTSIDE RECORDS SUMMARY | 2025-05-15 08:41 | XMS_ITS | Encounter Summary ---
Author Organization [employer] Address 75 [facility] 7t [place] [address] Care Team Providers Care Chief Maintenance Supervisor Name Role Phone Kasey Rodriguez MD Primary Care Provide r Encounter Details Date Type Department Care Team ([facility] st Contact Info) Description 09/14/2024 Telephone [facility] MEDICINE 230 [place] [address] Desiree Chan, PharmD 230 [place] [address] Social History Tobacco Use Types Packs/Day Years [...] 9:00 AM EST Office Visit [facility] MED[facility] [address] [place] [phone] Kasey Rodriguez MD [address] [place] [address] documented as of this encounter Visit Diagnoses Not on filedocumented in this encounter Additional Health Concerns Assessment Noted Time PHQ-9 Depression Total Score: 4 03/16/20 23 9:21 AM EDT documented as of this encounter Care Teams Chief Maintenance Supervisor Relationship Specialty Start Date End Date Kasey Rodriguez MD [address] [place] [phone] PCP - General Internal Medicine 02/23/23 Robert Parkinson 06/12/23 documented as of this encounter
--- OUTSIDE RECORDS SUMMARY | 2025-05-15 08:41 | XMS_ITS | Encounter Summary ---
Author Organization [employer] Address [address] [facility] [address] 7t [place] [address] Care Team Providers Care Carbon Furnace Operator Name Role Phone Kasey Rodriguez MD Primary Care Provide r Reason for Visit * Reason Comments Med Refill Encounter Details Date Type Department Care Team ([facility] Contact Info) Description 02/07/2025 Refill [facility] MEDICINE 230 [place], [place] [phone] Kasey Rodriguez MD 230 [place], [place] [phone] Essential hypertension Social History Tobacco Use Types [...] 07/05/2025 9:00 AM EST Office Visit [facility] MEDICINE 230 [place] [address] Kasey Rodirguez MD 230 [place] [address] documented as of this encounter Visit Diagnoses Diagnosis Essential hypertension Unspecified essential hypertension documented in this encounter Additional Health Concerns Assessment Noted Time PHQ-9 Depression Total Score: 2 12/30/19 25 9:22 AM EDT documented as of this encounter Care Teams Carbon Furnace Operator Relationship Specialty Start Date End Date Kasey Rodriguez MD [address] [place] [address] PCP - General Internal Medicine 02/23/23 Robert Parkinson 06/12/23 documented as of this encounter
--- OUTSIDE RECORDS SUMMARY | 2025-05-15 08:41 | XMS_ITS | Patient Health Record ---
Author Organization [facility] Address [address] [place] [address] Care Team Providers Care Field Installer Name Role Phone Chandni Ospina Primary Care Provider Torin Sarmiento Unavailable [phone] Allergies Allergen (clinical drug ingredient) Drug/Non Drug [...] Status Risk Notes Problem Acquired hallux valgus (51365568) Hallux valgus (acquired), left foot (M20.12) Active confirmed Problem Acquired hallux valgus (79008787) Hallux valgus (acquired), right foot (M20.11) Active confirmed Problem Polyneuropathy due to type 2 diabetes mellitus (046829440) Type 2 diabetes mellitus with diabetic polyneuropathy (E11.42) Active confirmed Problem Polyneuropathy due to diabetes mellitus type I (022739552) Type 1 diabetes mellitus with diabetic polyneuropathy (E10.42) Active confirmed Plan Of Treatment Pending Test Test Name Order Date X ray : Foot, left 3V 01/23/2021 X ray : Foot, right 3V 01/23/2021 [id number] SKIN LESIONS, OVER 4 01/24/20 21 [id number] SKIN LESIONS, OVER 4 05/13/20 21 [id number] SKIN LESIONS, OVER 4 08/12/19 22 Insurance Providers Payer Name Payer Address Payer Phone Subscriber Number Group Number Insured Name Patient Relationship to Insured Coverage Start Date Coverage End Date [facility] [employer] Claims [address] [place] [id number] Milind Whitman Self - patient is the [...]
--- OUTSIDE RECORDS SUMMARY | 2025-05-15 08:41 | XMS_ITS | Encounter Summary ---
Author Organization [employer] Address 75 [facility] 7t [place] [address] Care Team Providers Care Tombstone Carver Name Role Phone Kasey Rodriguez MD Primary Care Provide r Reason for Visit * Reason Comments Med Refill Encounter Details Date Type Department Care Team ([facility] st Contact Info) Description 09/21/2024 Refill [facility] MEDICINE 230 [place], [place] [phone] Kasey Rodriguez MD 230 [place], [place] [phone] Social History Tobacco Use Types Packs/Day Years [...] Description 07/05/2025 9:00 AM EST Office Visit [facility] MEDICINE [address] [place] [address] Kasey Rodriguez MD 230 [place] [address] documented as of this encounter Visit Diagnoses Not on filedocumented in this encounter Additional Health Concerns Assessment Noted Time PHQ-9 Depression Total Score: 4 03/16/20 23 9:21 AM EDT documented as of this encounter Care Teams Tombstone Carver Relationship Specialty Start Date End Date Kasey Rodriguez MD [address] [place] [address] PCP - General Internal Medicine 02/23/23 Robert Parkinson 06/12/23 documented as of this encounter
--- OUTSIDE RECORDS SUMMARY | 2025-05-15 08:41 | XMS_ITS | Encounter Summary ---
Author Organization [employer] Address 75 [facility] 7t [place] [address] Care Team Providers Care German Instructor Name Role Phone Kasey Rodriguez MD Primary Care Provide r Reason for Visit * Reason Comments Med Refill Encounter Details Date Type Department Care Team ([facility] Contact Info) Description 01/26/2024 Refill [facility] MEDICINE 230 [place], [place] [phone] Kasey Rodriguez MD 230 [place], [place] [phone] Chronic obstructive pulmonary disease, unspecified COPD type [...] [facility] [address] [place] [address] [phone] Kasey Rodriguez MD 230 [place] [address] documented as of this encounter Visit Diagnoses Diagnosis Chronic obstructive pulmonary disease, unspecified COPD type (CMS/HCC) (HCC) documented in this encounter Additional Health Concerns Assessment Noted Time PHQ-9 Depression Total Score: 4 03/16/20 23 9:21 AM EDT documented as of this encounter Care Teams German Instructor Relationship Specialty Start Date End Date Kasey Rodriguez MD [address] [place] [address] PCP - General Internal Medicine 02/23/23 Robert Parkinson 06/12/23 documented as of this encounter
--- OUTSIDE RECORDS SUMMARY | 2025-05-15 08:41 | XMS_ITS | Clinical Summary ---
Author Organization [employer] Address [address] [facility] 7[address] [place] [address] Care Team Providers Care Semiconductor Wafers Saw Operator Name Role Phone Kasey Rodriguez MD [...] ns:Chronic obstructive pulmonary disease, unspecified COPD type (CMS/HCC) (HCC) INHALE ONE PUFF BY MOUTH TWICE A DAY RINSE MOUTH AFTER USING (BULK) 60 each 11 024 Active Lancets (OneTouch Delica Plus [id number]) miscIndications :Type 2 diabetes mellitus with hyperglycemia, without long-term current use of insulin ([facility]) USE DIRECTED TWO TIMES A DAY (BULK) 100 each 11 024 Active OneTouch Ultra Test test stripIndication s:Type 2 diabetes mellitus with hyperglycemia, without long-term current use of insulin ([facility]) USE DIRECTED TWO TIMES A DAY [...] MORNING ^1R1 90 tablet 3 025 Active rosuvastatin (Crestor) 40 MG tabletIndicatio ns:Essential hypertension TAKE ONE TABLET BY MOUTH AT BEDTIME 30 tablet 11 025 Active lisinopril 10 MG tabletIndicatio ns:Essential hypertension TAKE ONE TABLET BY MOUTH EVERY MORNING 30 tablet 11 025 Active fluticasone (Flonase) 50 MCG/ACT nasal sprayIndication s:Allergic rhinitis, unspecified seasonality, unspecified trigger Administer 1-2 sprays into each nostril Once per day. Shake gently. Before first use, prime pump. After use, clean tip and replace cap. 16 g 2 025 2025 Active glipiZIDE XL (Glucotrol XL) 2.5 MG 24 hr tabletIndicatio ns:Type 2 diabetes mellitus with hyperglycemia, without long-term current use of insulin ([facility]) Take 1 tablet (2.5 mg) by mouth Once per day. Do not crush, chew, or split.TAKE ONE TABLET BY MOUTH EVERY MORNING DO NOT BREAK, CRUSH, DISSOLVE OR CHEW ^1R1 30 tablet 11 025 Active Mounjaro 5 MG/0.5ML solution auto-injectorIn dications:Type 2 diabetes mellitus with hyperglycemia, without long-term current use of insulin ([facility]) INJECT 5MG UNDER THE SKIN ONCE PER WEEK; START AFTER FINISHING 4 WEEKS OF 2.5MG DOSE 2 mL 2 Active glipiZIDE XL (Glucotrol XL) 2.5 MG 24 hr tabletIndicatio ns:Type 2 diabetes mellitus with hyperglycemia, without long-term current use of insulin (HCC) TAKE ONE TABLET BY MOUTH EVERY MORNING DO NOT BREAK, CRUSH, DISSOLVE OR CHEW ^1R1 30 tablet 11 024 2024 Discontinued(R eorder (will not trigger notification to Pharmacy)) fluticasone (Flonase) 50 MCG/ACT nasal sprayIndication s:Allergic rhinitis, unspecified seasonality, unspecified trigger Administer 1-2 sprays into each nostril Once per day. Shake gently. Before first use, prime pump. After use, clean tip and replace cap. 16 g 2 025 2024 Discontinued(R eorder (will not trigger notification to Pharmacy)) Tirzepatide (Mounjaro) 2.5 MG/0.5ML solution auto-injectorIn dications:Type 2 diabetes mellitus with hyperglycemia, without long-term current use of insulin ([facility]) Inject 2.5 mg under the skin 1 (one) time per week. 2 mL 2 025 2024 Discontinued Active Problems Problem Noted Date Diagnosed Date [...] Peripheral neuropathy 03/06/2021 Overview (06/23/2024): Of feet, [facility] Aortic dilatation 06/21/2020 Overview (06/23/2024): [...] 5% or more of study); [facility]. Date 07/21/2013. SE [address] [...] Encounters Date Type Department Care Team Description 05/08/2025 Telephone [facility] OPTOMETRY [address] [place] [address] Tiffany Driscoll, KENNA 05/05/2025 Refill [facility] MEDICINE [address] [place] [address] Kasey Rodriguez MD Chronic obstructive pulmonary disease, unspecified COPD type ([facility]/HCC) (HCC); Asthma, unspecified asthma severity, unspecified whether complicated, unspecified whether persistent 05/02/2025 Refill [facility] MEDICINE [address] [place] [phone] Kasey Rodriguez MD Type 2 diabetes mellitus with hyperglycemia, without long-term current use of insulin (HCC) 04/20/2025 Refill [facility] MEDICINE [address] [place] [phone] Kasey Rodriguez MD Allergic rhinitis, unspecified seasonality, unspecified trigger; Type 2 diabetes mellitus with hyperglycemia, without long-term current use of insulin (HCC) 04/18/2025 Orders Only GENERIC EXTERNAL DATA DEPARTMENT Provider, Generic External Data 04/13/2025 Patient Outreach [address] [address] Kavon Trejo Recovery Supports 04/11/2025 9:00 AM EDT Office Visit [address] [address] Kasey Rodriguez MD Type 2 diabetes mellitus with hyperglycemia, without long-term current use of insulin (HCC) (Primary Dx); Essential hypertension; Severe obesity with body mass index (BMI) of 35.0 to 39.9 with comorbidity (HCC); Screening for colon cancer; Onychomycosis; Dietary counseling; Exercise counseling; Encounter for immunization; Encounter for vaccination 04/11/2025 Travel 04/10/2025 Telephone [facility] MEDICINE [address] [place] [phone] Kasey Rodriguez MD Chart Prep 04/04/2025 Refill [facility] MED[facility]INE [address] [place] [phone] Kasey Rodriguez MD Allergic rhinitis, unspecified seasonality, unspecified trigger; Type 2 diabetes mellitus with hyperglycemia, without long-term current use of insulin (HCC) 02/28/2025 Refill [facility] MEDICINE [address] [place] [address] Kasey Rodriguez MD Essential hypertension from Last 3 Months Immunizations Immunization Administration [...] Description 07/05/2025 9:00 AM EST Office Visit [facility] [address] [facility] [place] [address] Kasey Rdoriguez MD [address] [place] [address] Health Maintenance Due Date Last Done Comments CT Colonography 1963 Colonoscopy 1963 FIT 1963 Sigmoidoscopy 1963 Diabetes: Foot Exam 1973 Dental X-Ray: Bitewings 11/12/2024 11/12/2023, 03/10 Dental Oral Exam 12/13/2024 06/14/2024, , 09/09/2022 Dental Prophylaxis 12/13/2024 06/14/2024, 0 11/12/2023, 09/09/2022 Diabetes: Hemoglobin A1C 07/12/2025 025, 12/29/2024, 09/27/2024, Additional history exists Lipid Panel 09/27/2025 09/27/2024, 06/25/2023 Alcohol/Substance Use Screening 12/29/2025 12/29/2024 Depression Screening 12/29/2025 12/29/2024, 12/30/19 25 Diabetes: Urine Protein Screening 12/29/2025 12/29/2024, 06/25/2023 Disability Screening 12/29/2025 12/29/2024 SDOH Screening 12/29/2025 12/29/2024 Tobacco Screening 04/11/2026 04/11/2025 FOBT 04/17/2026 04/17/2025 Eye Exam 09/16/2026 09/16/2024, 04/0 09/2024, 09/16/2024, Additional history exists Dental X-Ray: Full Mouth 11/12/2026 11/12/2023, 10/14 Colorectal Cancer Screening 04/17/2028 FIT DNA/Cologuard 04/17/2028 04/17/2025 DTaP/Tdap/Td Vaccines (3 - Td or Tdap) 12/14/2033 12/15/2023, 10/10/2013, 03/10/2008, Additional history exists Zoster Vaccines Completed 07/18/2021, 05/15/2021 RSV Patients and Patients Aged 60 years or older Completed 06/24/2023 Pneumococcal Vaccine: 50+ Years Completed 03/04/2024, 03/27/2017, 10/10/2013, Additional history exists HIV Screening Completed 09/27/2024, 06/25/2023 Hepatitis C Screening Completed 09/27/2024, 024 Hepatitis B Vaccines Completed 12/13/2024, 11/01/19 COVID-19 Vaccine Completed 04/11/2025, , 03/28/2022, Additional [...] on patient's age to complete this topic Goals Goal Patient Goal Type Associated Problems Recent Progress Patient-Stated? Author Help patients manage their type 2 diabetes Care Plan Help patients manage their type 2 diabetes No Yesenia Jeffery Weekly blood pressure task Care Plan Weekly blood pressure task No Yesenia Jeffery Help patients manage their type 2 diabetes Care Plan Help patients manage their type 2 diabetes No Yesenia Jeffery Patient has chronic kidney disease Care Plan Patient has chronic kidney disease No Yesenia Jeffery Weekly blood pressure task Care Plan Weekly blood pressure task No Yesenia Jeffery Patient has chronic kidney disease Care Plan Patient has chronic kidney disease No Yesenia Jeffery Procedures Procedure Name Priority Date/Time Associated Diagnosis Comments METHYLMALONIC ACID Routine 04/18/2025 8: 34 AM EST HOMOCYSTEINE Routine 04/18/2025 8:34 AM EST VITAMIN B12/FOLATE, SERUM PANEL Routine 04/18/2025 8:34 AM EST FERRITIN Routine 04/18/2025 8:34 AM EST LAB COLOGUARD COLON CANCER SCREEN Routine 04/17/2025 9:39 AM EST Screening for colon cancer POCT GLYCATED HEMOGLOBIN, TOTAL Routine 04/11/2025 9:03 [...] Recently Relevant to Health Maintenance Results * Vitamin B12 (Cobalamin) and Folate Panel, Serum (04/18/2025 8:34 AM EST) Vitamin B12 537 200 - 900 pg/mL [facility] Comment:NORMAL 200-900 PG/ML INDETERMINATE 160-199 PG/ML DEFICIENT < 160 PG/ML Folate 10.7 > or = 4.0 ng/mL [facility] Comment:Reference Values:> o r = 4.0 ng/mL< 4.0 ng/mL suggests folate deficiency Methotrexate, aminopterin and folinic acid(leucovorin) are chemotherapeutic agents whose molecularstructures are similar to folate; therefore, the Architectfolate assay cannot be used for patients using these drugs. 04/18/2025 8:34 AM EST 04/18/2025 8:40 AM EST us Generic External Data Provider LAB BLOOD ORDERAB LES Final Result [facility] [address] [place] [phone] * Methylmalonic Acid (04/18/2025 8:34 AM EST) Methylmalonic Acid 141 69 - 390 nmol/L [facility] Comment: Serum methylmalonic acid (MMA) levels are used todiagnose and monitor several rare inborn errors ofmetabolism, including methylmalonic aciduria. Theenzymatic conversion of MMA to succinic acid requiresvitamin B12 (adenosyl-cobalamin) as a cofactor. SerumMMA levels are also used for assessing functionalvitamin B12 deficiency. Vitamin B12 is essential forfetal neurodevelopment, particularly early inpregnancy. Undiagnosed maternal vitamin B12 deficiencymay be associated with adverse / outcomes,such as neural tube defects and intrauterine growthrestriction.[facility] utilized Multi-Modal Decomposition(MMD) analysis to establish first and second trimester-specific MMA reference intervals in , as givenbelow:MMA, First trimester (<13 wks gestation): 58-167 nmol/LMMA, Second trimester (13-23 wks gestation):63-241 nmol/LThis test was developed and its analytical performancecharacteristics have been determined by [employer]. It has not been cleared or approved by theA. This assay has been validated pursuant to the CLIAregulations and is used for clinical purposes.THIS TEST WAS PERFORMED AT:[facility]/[id number] [place] [address]PJTXYWLHERNANDEZ CASEY MD,PHD 04/18/2025 8:34 AM EST 04/18/2025 8:40 AM EST Generic External Data Provider LAB BLOOD ORDERAB LES Final Result Performing Organization Address [facility] de Phone Number [facility] [address] [place] [phone] * Homocysteine (04/18/2025 8:34 AM EST) Homocysteine 10.5 < or = 15.2 umol/L [facility] Comment:Homocysteine is incr eased by functional deficiency offolate or vitamin B12. Testing for methylmalonic aciddifferentiates between these deficiencies. Other causesof increased homocysteine include renal failure, folateantagonists such as methotrexate and phenytoin, andexposure to nitrous oxide.Cassi Sloan, et al., Claudia [facility] Hand Med. 1999;131(5):331-9.THIS TEST WAS PERFORMED AT:[facility] [address] [id number] MENG MD 04/18/2025 8:34 AM EST 04/18/2025 8:40 AM EST us Generic External Data Provider LAB BLOOD ORDERAB LES Final Result Performing Organization Address [facility] Co de Phone Number [facility] [address] [place] [address] [phone] * Ferritin (04/18/2025 8:34 AM EST) Ferritin 164 20 - 250 ng/mL [facility] 04/18/2025 8:34 AM EST 04/18/2025 8:40 AM EST us Generic External Data Provider LAB BLOOD ORDERAB LES Final Result [facility] [address] [place] [phone] * Cologuard?? colon cancer screening (04/17/2025 9:39 AM EST) Cologuard Result Negative Negative 04/21/20 7:58 AM EST [facility] [facility] (CLIA #:[id number]) Comment: The Cologuard (TM) test was performed on this specimen. NEGATIVE TEST RESULT. A negative Cologuard result indicates a low likelihood that a colorectal cancer (CRC) or advanced adenoma (adenomatous polyps with more advanced pre-malignant features) is present. The chance that a person with a negative Cologuard test has a colorectal cancer is less than 1 in 1500 (negative predictive value >99.9%) or has an advanced adenoma is less than 5.3% (negative predictive value 94.7%). These data are based on a prospective cross-sectional study of 10,000 individuals at average risk for colorectal cancer who were screened with both Cologuard and colonoscopy. (Toyin Morris al, N Engl J Med 2014;370(14):1286- 1297) The normal value (reference range) for this assay is negative. COLOGUARD RE-SCREENING RECOMMENDATION: Periodic colorectal cancer screening is an important part of preventive healthcare for asymptomatic individuals at average risk for colorectal cancer. Following a negative Cologuard result, the [employer] Cancer Society and U.S. Multi-Society Task Force screening guidelines recommend a Cologuard re-screening interval of 3 years. References: [employer] Cancer Society Guideline for Colorectal Cancer Screening: https://www.cancer.org/cancer/kmzrg-ycuzdg-tredku/qgvykhhrk-pjjqmwqes-tanrptt/ac s-rec ommendations.html.; Sandeep DK, Giselle CR, Saskia SloanK, Colorectal Cancer Screening: Recommendations for Physicians and Patients from the U.S. Multi-Society Task Force on Colorectal Cancer Screening , Am J Gastroenterology 2017; 112:2310-6409. TEST DESCRIPTION: Composite algorithmic analysis of stool DNA-biomarkers with hemoglobin immunoassay. Quantitative values of individual biomarkers are not reportable and are not associated with individual biomarker result reference ranges. Cologuard is intended for colorectal cancer screening of adults of either sex, 45 years or older, who are at average-risk for colorectal cancer (CRC). Cologuard has been approved for use by the U.S. FDA. The performance of Cologuard was established in a cross sectional study of average-risk adults aged 50-84. Cologuard performance in patients ages 45 to 49 years was estimated by sub-group analysis of near-age groups. Colonoscopies performed for a positive result may find as the most clinically significant lesion: colorectal cancer [4.0%], advanced adenoma (including sessile serrated polyps greater than or equal to 1cm diameter) [20%] or non- advanced adenoma [31%]; or no colorectal neoplasia [45%]. These estimates are derived from a prospective cross-sectional screening study of 10,000 individuals at average risk for colorectal cancer who were screened with both Cologuard and colonoscopy. (Toyin Ruiz et al, N Engl J Med 2014;370(14):6408-4453.) Cologuard may produce a false negative or false positive result (no colorectal cancer or precancerous polyp present at colonoscopy follow up). A negative Cologuard test result does not guarantee the absence of CRC or advanced adenoma (pre-cancer). The current Cologuard screening interval is every 3 years. ([employer] Cancer Society and U.S. Multi-Society Task Force). Cologuard performance data in a 10,000 patient pivotal study using colonoscopy as the reference method can be accessed at the following location: [email or web address].CruiseWise/results. Additional description of the Cologuard test process, warnings and precautions can be found at [email or web address].com. Stool specimen (specimen) 04/17/2025 9:39 AM EST 04/18/2025 10:49 AM EST us Kasey Menjivar MD LAB MOLECULAR DIAGNOS TICS ORDERABLES Final Result [facility] [facility] (CLIA #:[id number]) [address] [place] [address], * (ABNORMAL) POCT Hgb A1c (04/11/2025 9:03 AM EDT) Hemoglobin A1C 9.4(A) 4.0 - 5.7 % QC Media Lot # [id number] Lot# Expiration Date Blood 04/11/2025 9:03 AM EDT us Kasey Menjivar MD POINT OF CARE TEST EN TER/EDIT ORDERABLES Final Result * (ABNORMAL) POCT Glucose (04/11/2025 9:01 AM EDT) Glucose Blood, POC 334(A) 60 - 200 mg/dL QC Media Lot # [id number] Lot# Expiration Date Blood Capillary blood specimen / Unknown 04/11/2025 9:01 AM EDT us Kasey Menjivar MD POINT OF CARE TEST EN TER/EDIT ORDERABLES Final Result * Albumin, Random Urine W/Creatinine (12/29/2024 10:18 AM EDT) Creatinine, Urine 141.17 mg/dL [facility] Microalbumin Urine 15.0 mg/L [facility] Microalbum Creatinine Ratio Ur 10.6 <30 ug/mg cr [facility] Comment:Albumin/Creatinine R atio Reference Ranges: Normal: < 30 ug/mg creatinine Microalbuminuria: 30 - 300 ug/mg creatinineClinical Albuminuria: > 300 ug/mg creatinine Urine (Urine, Random) 12/29/2024 10:18 AM EDT 12/29/2024 11:17 AM EDT Kasey Menjivar MD LAB URINE ORDERABLES Final Result Performing Organization Address [facility]/ZIP Co de Phone Number [facility] [address] [place] [phone] * Hepatitis C Antibody with Reflex to HCV, RNA, Quantitative, Real-Time PCR (09/27/2024 2:12 PM EDT) Hepatitis C Antibody Nonreactive Nonreactive [facility] Comment:Antibodies to HCV no t detected; does not exclude early acuteHCV infection. Blood Venous blood specimen / Unknown 09/27/2024 2:12 PM EDT 09/27/2024 4:10 PM EDT Kasey Menjivar MD LAB BLOOD ORDERABLES Final Result Performing Organization Address [facility] Co de Phone Number [facility] [address] [place] [phone] [phone] * HIV-1/2 Antigen and Antibodies, Fourth Generation, with Reflexes (09/27/2024 2:12 PM EDT) HIV AB/AG Nonreactive Nonreactive [facility] Comment:HIV-1 p24 Ag and/or HIV-1/HIV-2 Ab not detected.A test result that is nonreactive does not exclude thepossibility of exposure to or infection with HIV-1 and/orHIV-2. Nonreactive results in this assay for individualswith prior exposure to HIV-1 and/or HIV-2 may be due toantigen and antibody levels that are below the limit ofdetection of this assay.The [email or web address] HIV Ag/Ab Combo assay result andsupplemental assay results should be interpreted inconjunction with the patient's clinical presentation,history and other laboratory results. If the results areinconsistent with clinical evidence, additional testing issuggested to confirm the result. Blood Venous blood specimen / Unknown 09/27/2024 2:12 PM EDT 09/27/2024 4:10 PM EDT us Kasey Menjivar MD LAB BLOOD ORDERABLES Final Result Performing Organization Address [facility] Co de Phone Number [facility] [address] [place] [phone] * (ABNORMAL) Lipid Panel, Standard (09/27/2024 2:12 PM EDT) Triglycerides 84 <150 mg/dL [facility] Comment:Desirable Triglyceri de: less than 150 mg/dLBorderline High Triglyceride 150-199 mg/dLHigh Triglyceride: 200-499 mg/dLVery High Triglyceride: greater than or equal to 5OO mg/dL Cholesterol 99 <200 mg/dL [facility] Comment:Desirable Cholestero l: less than 200 mg/dLBorderline High Cholesterol: 200-239 mg/dLHigh Cholesterol: greater than 239 mg/dL LDL Cholesterol Calculated 43 <100 mg/dL [facility] Comment:Desirable LDL: less than 100 mg/dLNear Optimal/Above Optimal LDL: 110- 129 mg/dLBorderline High LDL: 130-159 mg/dLHigh LDL: 160-189 mg/dLVery High LDL: greater than or equal to 190 mg/dL HDL Cholesterol 40(L) >40 mg/dL [facility] Comment:Desirable HDL: great er than 40 mg/dL Note: This HDL assay may give artificially low results in patients with liver disease. Blood Venous blood specimen / Unknown 09/27/2024 2:12 PM EDT 09/27/2024 4:10 PM EDT us Kasey Menjivar MD LAB BLOOD ORDERABLES Final Result Performing Organization Address [facility]/ZIP Co de Phone Number [facility] [address] [place] [phone] from Last 3 Months or Most Recently Relevant to Health Maintenance Additional Health Concerns Active Problems Noted Date Diagnosed Date Help patients manage their type 2 diabetes 05/08 Weekly blood pressure task 05/08/2025 Help patients manage their type 2 diabetes 05/08 Patient has chronic kidney disease 05/08/2025 Weekly blood pressure task 05/08/2025 Patient has chronic kidney disease 05/08/2025 Insurance [facility] [id number] [facility] Care Teams Semiconductor Wafers Saw Operator Relationship Specialty Start Date End Date Kasey Rodriguez MD [address] [place] [address] PCP - General Internal Medicine 02/23/23 Robert Parkinson 06/12/23
--- OUTSIDE RECORDS SUMMARY | 2025-05-15 08:41 | XMS_ITS | Encounter Summary ---
Author Organization [employer] Address [address] [facility] [address] [place] [address] Care Team Providers Care Labor Operator Name Role Phone Kasey Rodriguez MD Primary Care Provide r Reason for Visit * Reason Comments Med Refill Encounter Details Date Type Department Care Team ([facility] st Contact Info) Description 03/16/2024 Refill [facility] MEDICINE [address] [place], [place] [phone] Kasey Rodriguez MD [address] [place], [place] [phone] Essential hypertension Social History Tobacco Use Types [...] Visit [facility] MEDICINE [address] [place] [address] Kasey Rodriguez MD [address] [place] [address] documented as of this encounter Visit Diagnoses Diagnosis Essential hypertension Unspecified essential hypertension documented in this encounter Additional Health Concerns Assessment Noted Time PHQ-9 Depression Total Score: 4 03/16/20 23 9:21 AM EDT documented as of this encounter Care Teams Labor Operator Relationship Specialty Start Date End Date Kasey Rodriguez MD [address] [place] [phone] PCP - General Internal Medicine 02/23/23 Robert Caring 06/12/23 documented as of this encounter
--- OUTSIDE RECORDS SUMMARY | 2025-05-15 08:41 | XMS_ITS | Encounter Summary ---
Author Organization [employer] Address [address] [facility] [address] [place] [address] Care Team Providers Care Weigher Operator Name Role Phone Kasey Rodriguez MD Primary Care Provide r Reason for Visit * Reason Comments Med Refill Encounter Details Date Type Department Care Team ([facility] Contact Info) Description 01/27/2024 Refill [facility] MEDICINE [address] [place], [place] [phone] Kasey Rodriguez MD [address] [place], [place] [phone] Chronic obstructive pulmonary disease, unspecified COPD type [...] Description 07/05/2025 9:00 AM EST Office Visit [facility] MED[facility]INE [address] [place] [address] [phone] Kasey Rodriguez MD [address] [place] [address] documented as of this encounter Visit Diagnoses Diagnosis Chronic obstructive pulmonary disease, unspecified COPD type (CMS/HCC) (HCC) documented in this encounter Additional Health Concerns Assessment Noted Time PHQ-9 Depression Total Score: 4 03/16/20 23 9:21 AM EDT documented as of this encounter Care Teams Weigher Operator Relationship Specialty Start Date End Date Kasey Rodriguez MD [address] [place] [phone] PCP - General Internal Medicine 02/23/23 Robert Parkinson 06/12/23 documented as of this encounter
[2025-05-15 09:57] LABS: Prostate Specific Antigen 1.18 ng/mL (<0.05-4.0)
[2025-05-20 16:08] LABS: Testosterone, Free 49.1 pg/mL (35.0-155.0)
== END 2025-05-15 08:24 | disposition home or self-care (01) ==
LOC: HO.LAB 08:23
PROVIDERS: PCP Internal Medicine; Visit Provider Nurse Practitioner Family
DX: Z12.5 Encounter for screening for malignant neoplasm of prostate (principal); N52.9 Male erectile dysfunction, unspecified
CPT/HCPCS: 36415; 84153; 84402; 84403

== ENCOUNTER 2025-06-01 07:34 | Outpatient (AMB) | payer OTHER, SELFPAY ==
--- OUTSIDE RECORDS SUMMARY | 2024-01-11 04:00 | XMS_ITS ---
Author Organization [facility] Address [address] [place] [id number] Care Team Providers Care Hairspring Ii Inspector Name Role Phone Chandni Ospina Primary Care Provider Torin Sarmiento Unavailable [phone] REASON FOR VISIT for sooner apt Encounters Encounter Location Date Provider Diagnosis [address] [address] 01/11/2024 Torin Acosta Plan Of Treatment No Information Progress Notes * STEPHEN ClaribelOB:1965 ( 60 yo M)Acc No.[id number]:01/11/2024 Progress Note Patient: Milind GANDHI Provider: Georgina Jones DPM :1965 A ge:58 Y S ex:Male Date:01/11/2024 Address:[address] [place], [place] [id number] Pcp:Chandni Ospina Subjective: * Chief Complaints: * 1 . For sooner apt. * Medical History: Objective: * Vitals: Assessment: Plan: * Treatment: * Images: * The named appointment provid er may or may not be the originator of this progress note, and it is not deemed complete until electronically signed by the appointment provider. Sign off status: Pending * Provider: Georgina Jones DPM Date: 0 01/11/2024 Generated for Printi ng/Faxing/eTransmitting on: 1 08/02/2024 07:35 AM EST
--- OUTSIDE RECORDS SUMMARY | 2025-05-30 19:00 | XMS_ITS | Clinical Summary ---
Author Organization Unknown Care Team Providers Care Take Up Operator Name Role Phone HOMAR BALLARD MD, SERJIO Unavailable Clover SALCIDO RN, ARIANNA Unavailable Unavailable STEPHEN ENCINAS, DAVID Unavailable Unavailable Payers Payer Name Policy Type Policy Number Effective Date Expira tion Date [facility] [id number] MEDICA[place] [id number] MEDICARE - [facility] - [facility] [id number] Problems Condition Name Condition Details Condition Category [...] 2022-06 00:00: 00 04-11 23:59 :00 No [id number] 1 drops TWICE DAILY 1 drops TWICE DAILY (route: ophthalmic (eye)) Med Classific ation: Ophthalmi c Agents Ventolin HFA 90 mcg/actuati on aerosol inhaler 2022-06 00:00: 00 04-11 23:59 :00 No [id number] Unavailable 2 puff EVERY 4 HOURS 2 puff EVERY 4 HOURS (route: inhalation ) Med Classific ation: Respirato ry Therapy Agents lisinopril 10 mg tablet 2022-06 00:00: 00 04-11 23:59 :00 No [id number] Unavailable 10 mg EVERY DAY 10 mg EVERY DAY (route: oral) Med Classific ation: Cardiovas cular Therapy Agents verapamil ER (PM) 100 mg capsule 24hr pellet CT,ext.rele ase 2022-06 00:00: 00 09-13 23:59 :00 No [id number] 100 mg AT BEDTIME 100 mg AT BEDTIME (route: oral) Med Classific ation: Cardiovas cular Therapy Agents clonazepam 2 mg tablet 2022-06 00:00: 00 01-30 23:59 :00 No [id number] 2 mg AT BEDTIME 2 mg AT BEDTIME (route: oral) Med Classific ation: Central Nervous System Agents duloxetine 60 mg capsule,del ayed release 2022-06 00:00: 00 04-11 23:59 :00 No [id number] 60 mg EVERY AM 60 mg EVERY AM (route: oral) Med Classific ation: Central Nervous System Agents trazodone 150 mg tablet 2022-06 00:00: 00 04-11 23:59 :00 No [id number] 150 mg AT BEDTIME NEEDED 150 mg AT BEDTIME NEEDED (route: oral) Med Classific ation: Central Nervous System Agents aspirin 81 mg tablet,yaa yed release 2022-06 00:00: 00 04-11 23:59 :00 No [id number] 81 mg EVERY AM 81 mg EVERY AM (route: oral) Med Classific ation: Hematolog ical Agents Flomax 0.4 mg capsule 2022-06 00:00: 00 01-30 23:59 :00 No [id number] 0.4 mg BEDTIME 0.4 mg BEDTIME (route: oral) Med Classific ation: Genitouri nary Therapy Galzin 50 mg (zinc) capsule 2022-06 00:00: 00 09-13 23:59 :00 No [id number] 50 mg DAILY 50 mg DAILY (route: oral) Med Classific ation: Antidotes and other Reversal Agents glipizide 5 mg tablet 2022-06 00:00: 00 04-11 23:59 :00 No [id number] 5 mg EVERY AM 5 mg EVERY AM (route: oral) Med Classific ation: Endocrine loratadine 10 mg tablet 2022-06 00:00: 00 04-11 23:59 :00 No [id number] 10 mg EVERY AM 10 mg EVERY AM (route: oral) Med Classific ation: Respirato ry Therapy Agents montelukast 10 mg tablet 2022-06 00:00: 00 09-13 23:59 :00 No [id number] 10 mg BEDTIME 10 mg BEDTIME (route: oral) Med Classific ation: Respirato ry Therapy Agents omeprazole 20 mg tablet,yaa yed release 2022-06 00:00: 00 09-13 23:59 :00 No [id number] 20 mg 2 TIMES DAILY 20 mg 2 TIMES DAILY (route: oral) Med Classific ation: Gastroint estinal Therapy Agents ropinirole 0.5 mg tablet 2022-06 00:00: 00 09-13 23:59 :00 No [id number] 0.5 mg BEDTIME 0.5 mg BEDTIME (route: oral) Med Classific ation: Central Nervous System Agents rosuvastati n 40 mg tablet 2022-06 00:00: 00 04-11 23:59 :00 No [id number] 40 mg BEDTIME 40 mg BEDTIME (route: oral) Med Classific ation: Cardiovas cular Therapy Agents vitamin A 2,400 mcg capsule 2022-06 00:00: 00 09-13 23:59 :00 No [id number] 2400 mcg DAILY 2400 mcg DAILY (route: oral) Med Classific ation: Electroly te Balance-N utritiona l Products Vitamin C 1,000 mg tablet 2022-06 00:00: 00 09-13 23:59 :00 No [id number] 1000 mg EVERY AM 1000 mg EVERY AM (route: oral) Med Classific ation: Electroly te Balance-N utritiona l Products Vitamin D3 50 mcg (2,000 unit) capsule 2022-06 00:00: 00 09-13 23:59 :00 No [id number] 50 mcg EVERY AM 50 mcg EVERY AM (route: oral) Med Classific ation: Electroly te Balance-N utritiona l Products vitamin E 268 mg (400 unit) capsule 2022-06 00:00: 00 09-13 23:59 :00 No [id number] 268 mg DAILY 268 mg DAILY (route: oral) Med Classific ation: Electroly te Balance-N utritiona l Products quetiapine 50 mg tablet 09-13 00:00: 00 01-30 23:59 :00 No [id number] 50 mg BEDTIME 50 mg BEDTIME (route: oral) Med Classific ation: Central Nervous System Agents fluticasone propionate 250 mcg/actuati on blister powder for inhalation 02-28 00:00: 00 04-11 23:59 :00 No [id number] 1 inhalat ion 2 TIMES DAILY 1 inhalation 2 TIMES DAILY (route: inhalation ) Med Classific ation: Respirato ry Therapy Agents aspirin 81 mg tablet,aya yed release 2024-06 00:00: 00 Yes [id number] 81 mg EVERY AM 81 mg EVERY AM (route: oral) Med Classific ation: Hematolog ical Agents dorzolamide 22.3 mg-timolol 6.8 mg/mL eye drops 2024-06 00:00: 00 Yes [id number] 1 drops EVERY AM 1 drops EVERY AM (route: ophthalmic (eye)) Med Classific ation: Ophthalmi c Agents duloxetine 60 mg capsule,del ayed release 2024-06 00:00: 00 Yes [id number] 60 mg BEDTIME 60 mg BEDTIME (route: oral) Med Classific ation: Central Nervous System Agents fluticasone propionate 250 mcg/actuati on blister powder for inhalation 2024-06 00:00: 00 Yes [id number] 1 inhalat ion 2 TIMES DAILY 1 inhalation 2 TIMES DAILY (route: inhalation ) Med Classific ation: Respirato ry Therapy Agents glipizide 5 mg tablet 2024-06 00:00: 00 Yes [id number] 5 mg EVERY AM 5 mg EVER Y AM (route: oral) Med Classific ation: Endocrine lisinopril 10 mg tablet 2024-06 00:00: 00 Yes [id number] 10 mg EVERY AM 10 mg EVERY AM (route: oral) Med Classific ation: Cardiovas cular Therapy Agents loratadine 10 mg tablet 2024-06 00:00: 00 Yes [id number] 10 mg EVERY AM 10 mg EVERY AM (route: oral) Med Classific ation: Respirato ry Therapy Agents rosuvastati n 40 mg tablet 2024-06 00:00: 00 Yes [id number] 40 mg BEDTIME 40 mg BEDTIME (route: oral) Med Classific ation: Cardiovas cular Therapy Agents trazodone 150 mg tablet 2024-06 00:00: 00 Yes [id number] 150 mg BEDTIME 150 mg BEDTIME (route: oral) Med Classific ation: Central Nervous System Agents Ventolin HFA 90 mcg/actuati on aerosol inhaler 2024-06 00:00: 00 Yes [id number] 2 puff EVERY 4-6 HOURS NEEDED 2 puff EVERY 4-6 HOURS NEEDED (route: inhalation ) Med Classific ation: Respirato ry Therapy Agents Vital Signs Vital Name Observation Time Observation Value Commen ts Temperature 2025-05-31 07:30:00.000 98.6 [degF] Temperature 2025-05-31 06:43:00.000 98.6 [degF] Temperature 2025-05-30 15:07:00.000 98.6 [degF] Temperature 2025-05-25 10:38:00.000 98.6 [degF] Temperature 2025-05-24 07:30:00.000 98.6 [degF] Temperature 2025-05-23 22:17:00.000 98.6 [degF] Temperature 2025-05-19 17:49:00.000 98.6 [degF] Temperature 2025-05-18 07:47:00.000 98.6 [degF] Temperature 2025-05-17 16:42:00.000 98.6 [degF] Temperature 2025-05-09 08:00:00.000 98.6 [degF] Temperature 2025-05-08 15:00:00.000 98.6 [degF] Temperature 2025-05-05 07:35:00.000 98.6 [degF] Temperature 2025-05-04 17:09:00.000 98.6 [degF] Temperature 2025-05-03 07:19:00.000 98.6 [degF] Temperature 2025-05-02 07:37:00.000 98.6 [degF] Temperature 2025-05-01 07:12:00.000 98.6 [degF] Temperature 2025-04-28 13:37:00.000 98.6 [degF] Temperature 2025-04-27 07:53:00.000 98.6 [degF] Temperature 2025-04-26 11:16:00.000 98 [degF] Temperature 2025-04-25 12:31:00.000 98.6 [degF] Temperature 2025-04-24 13:24:00.000 98.6 [degF] Temperature 2025-04-21 10:10:00.000 98.6 [degF] Temperature 2025-04-20 07:49:00.000 98.6 [degF] Temperature 2025-04-19 08:24:00.000 98.3 [degF] Temperature 2025-04-18 10:44:00.000 98.6 [degF] Temperature 2025-04-17 18:56:00.000 98.6 [degF] Temperature 2025-04-14 07:43:00.000 98.6 [degF] Temperature 2025-04-13 07:57:00.000 98.6 [degF] Temperature 2025-04-12 07:41:00.000 98.6 [degF] Temperature 2025-04-11 08:15:00.000 98.6 [degF] Temperature 2025-04-10 07:53:00.000 98.6 [degF] Temperature 2025-04-07 07:38:00.000 98.6 [degF] Temperature 2025-04-06 08:07:00.000 98.6 [degF] Temperature 2025-04-05 08:05:00.000 98.6 [degF] Temperature 2025-04-04 07:35:00.000 98.6 [degF] Temperature 2025-04-03 08:03:00.000 98.6 [degF] Pulse 2025-05-31 07:30:00.000 78 /min Pulse 2025-05-31 06:43:00.000 82 /min Pulse 2025-05-30 15:07:00.000 82 /min Pulse 2025-05-25 10:38:00.000 66 /min Pulse 2025-05-24 07:30:00.000 82 /min Pulse 2025-05-23 22:17:00.000 88 /min Pulse 2025-05-19 17:49:00.000 82 /min Pulse 2025-05-18 07:47:00.000 88 /min Pulse 2025-05-17 16:42:00.000 82 /min Pulse 2025-05-09 08:00:00.000 88 /min Pulse 2025-05-08 15:00:00.000 82 /min Pulse 2025-05-05 07:35:00.000 71 /min Pulse 2025-05-04 17:09:00.000 82 /min Pulse 2025-05-03 07:19:00.000 68 /min Pulse 2025-05-02 07:37:00.000 82 /min Pulse 2025-05-01 07:12:00.000 75 /min Pulse 2025-04-28 13:37:00.000 82 /min Pulse 2025-04-27 07:53:00.000 82 /min Pulse 2025-04-26 11:16:00.000 82 /min Pulse 2025-04-25 12:31:00.000 82 /min Pulse 2025-04-24 13:24:00.000 78 /min Pulse 2025-04-21 10:10:00.000 82 /min Pulse 2025-04-20 07:49:00.000 88 /min Pulse 2025-04-19 08:25:00.000 82 /min Pulse 2025-04-18 10:44:00.000 82 /min Pulse 2025-04-17 18:56:00.000 85 /min Pulse 2025-04-14 07:43:00.000 82 /min Pulse 2025-04-13 07:57:00.000 82 /min Pulse 2025-04-12 07:41:00.000 82 /min Pulse 2025-04-11 08:15:00.000 82 /min Pulse 2025-04-10 07:53:00.000 82 /min Pulse 2025-04-07 07:38:00.000 88 /min Pulse 2025-04-06 08:07:00.000 69 /min Pulse 2025-04-05 08:05:00.000 82 /min Pulse 2025-04-04 07:35:00.000 69 /min Pulse 2025-04-03 08:03:00.000 78 /min O2 Saturation (%) 2025-05-31 07:30:00.000 98 % O2 Saturation (%) 2025-05-31 06:43:00.000 98 % O2 Saturation (%) 2025-05-30 15:10:00.000 98 % O2 Saturation (%) 2025-05-19 17:50:00.000 98 % O2 Saturation (%) 2025-05-09 08:00:00.000 98 % O2 Saturation (%) 2025-05-08 15:00:00.000 98 % O2 Saturation (%) 2025-05-05 07:44:00.000 98 % O2 Saturation (%) 2025-05-03 07:21:00.000 98 % O2 Saturation (%) 2025-05-02 07:37:00.000 98 % O2 Saturation (%) 2025-05-01 07:16:00.000 98 % O2 Saturation (%) 2025-04-27 07:54:00.000 98 % O2 Saturation (%) 2025-04-24 13:25:00.000 98 % O2 Saturation (%) 2025-04-21 10:11:00.000 98 % O2 Saturation (%) 2025-04-17 19:02:00.000 98 % O2 Saturation (%) 2025-04-12 07:47:00.000 98 % O2 Saturation (%) 2025-04-07 07:38:00.000 95 % O2 Saturation (%) 2025-04-06 08:08:00.000 98 % O2 Saturation (%) 2025-04-05 08:06:00.000 98 % O2 Saturation (%) 2025-04-03 08:04:00.000 98 % Respirations 2025-05-31 07:30:00.000 20 /min Respirations 2025-05-31 06:43:00.000 20 /min Respirations 2025-05-30 15:07:00.000 20 /min Respirations 2025-05-25 10:38:00.000 20 /min Respirations 2025-05-24 07:30:00.000 20 /min Respirations 2025-05-23 22:17:00.000 20 /min Respirations 2025-05-19 17:49:00.000 20 /min Respirations 2025-05-18 07:47:00.000 20 /min Respirations 2025-05-17 16:42:00.000 20 /min Respirations 2025-05-09 08:00:00.000 20 /min Respirations 2025-05-08 15:00:00.000 20 /min Respirations 2025-05-05 07:35:00.000 20 /min Respirations 2025-05-04 17:09:00.000 20 /min Respirations 2025-05-03 07:19:00.000 20 /min Respirations 2025-05-02 07:37:00.000 20 /min Respirations 2025-05-01 07:12:00.000 20 /min Respirations 2025-04-28 13:37:00.000 20 /min Respirations 2025-04-27 07:53:00.000 20 /min Respirations 2025-04-26 11:16:00.000 20 /min Respirations 2025-04-25 12:31:00.000 20 /min Respirations 2025-04-24 13:24:00.000 20 /min Respirations 2025-04-21 10:10:00.000 20 /min Respirations 2025-04-20 07:49:00.000 20 /min Respirations 2025-04-19 08:24:00.000 20 /min Respirations 2025-04-18 10:44:00.000 20 /min Respirations 2025-04-17 18:56:00.000 20 /min Respirations 2025-04-14 07:43:00.000 20 /min Respirations 2025-04-13 07:57:00.000 20 /min Respirations 2025-04-12 07:41:00.000 20 /min Respirations 2025-04-11 08:15:00.000 20 /min Respirations 2025-04-10 07:53:00.000 20 /min Respirations 2025-04-07 07:38:00.000 20 /min Respirations 2025-04-06 08:07:00.000 20 /min Respirations 2025-04-05 08:05:00.000 20 /min Respirations 2025-04-04 07:35:00.000 20 /min Respirations 2025-04-03 08:03:00.000 20 /min Weight (lbs) 2025-05-25 10:40:00.000 224 [lb_av] Weight (lbs) 2025-04-12 07:47:00.000 224 [lb_av] Weight (lbs) 2025-04-07 07:38:00.000 224 [lb_av] Weight (lbs) 2025-04-06 08:08:00.000 224 [lb_av] Weight (lbs) 2025-04-05 08:06:00.000 224 [lb_av] Systolic Blood Pressure 2025-05-31 07:30:00.000 122 mm [Hg] Systolic Blood Pressure 2025-05-31 06:43:00.000 128 mm [Hg] Systolic Blood Pressure 2025-05-30 15:07:00.000 142 mm [Hg] Systolic Blood Pressure 2025-05-25 10:38:00.000 119 mm [Hg] Systolic Blood Pressure 2025-05-24 07:30:00.000 138 mm [Hg] Systolic Blood Pressure 2025-05-23 22:17:00.000 140 mm [Hg] Systolic Blood Pressure 2025-05-19 17:49:00.000 132 mm [Hg] Systolic Blood Pressure 2025-05-18 07:47:00.000 130 mm [Hg] Systolic Blood Pressure 2025-05-17 16:42:00.000 138 mm [Hg] Systolic Blood Pressure 2025-05-09 08:00:00.000 132 mm [Hg] Systolic Blood Pressure 2025-05-08 15:00:00.000 127 mm [Hg] Systolic Blood Pressure 2025-05-05 07:35:00.000 130 mm [Hg] Systolic Blood Pressure 2025-05-04 17:09:00.000 142 mm [Hg] Systolic Blood Pressure 2025-05-03 07:19:00.000 125 mm [Hg] Systolic Blood Pressure 2025-05-02 07:37:00.000 130 mm [Hg] Systolic Blood Pressure 2025-05-01 07:12:00.000 142 mm [Hg] Systolic Blood Pressure 2025-04-28 13:37:00.000 142 mm [Hg] Systolic Blood Pressure 2025-04-27 07:53:00.000 142 mm [Hg] Systolic Blood Pressure 2025-04-26 11:16:00.000 127 mm [Hg] Systolic Blood Pressure 2025-04-25 12:31:00.000 132 mm [Hg] Systolic Blood Pressure 2025-04-24 13:24:00.000 132 mm [Hg] Systolic Blood Pressure 2025-04-21 10:10:00.000 132 mm [Hg] Systolic Blood Pressure 2025-04-20 07:49:00.000 138 mm [Hg] Systolic Blood Pressure 2025-04-19 08:24:00.000 138 mm [Hg] Systolic Blood Pressure 2025-04-18 10:44:00.000 138 mm [Hg] Systolic Blood Pressure 2025-04-17 18:56:00.000 132 mm [...] 08:03:00.000 142 mm [Hg] Diastolic Blood Pressure 2025-05-31 07:30:00.000 74 mm [Hg] Diastolic Blood Pressure 2025-05-31 06:43:00.000 88 mm [Hg] Diastolic Blood Pressure 2025-05-30 15:07:00.000 78 mm [Hg] Diastolic Blood Pressure 2025-05-25 10:38:00.000 67 mm [Hg] Diastolic Blood Pressure 2025-05-24 07:30:00.000 88 mm [Hg] Diastolic Blood Pressure 2025-05-23 22:17:00.000 78 mm [Hg] Diastolic Blood Pressure 2025-05-19 17:49:00.000 72 mm [Hg] Diastolic Blood Pressure 2025-05-18 07:47:00.000 82 mm [Hg] Diastolic Blood Pressure 2025-05-17 16:42:00.000 78 mm [Hg] Diastolic Blood Pressure 2025-05-09 08:00:00.000 78 mm [Hg] Diastolic Blood Pressure 2025-05-08 15:00:00.000 75 mm [Hg] Diastolic Blood Pressure 2025-05-05 07:35:00.000 80 mm [Hg] Diastolic Blood Pressure 2025-05-04 17:09:00.000 70 mm [Hg] Diastolic Blood Pressure 2025-05-03 07:19:00.000 84 mm [Hg] Diastolic Blood Pressure 2025-05-02 07:37:00.000 81 mm [Hg] Diastolic Blood Pressure 2025-05-01 07:12:00.000 85 mm [Hg] Diastolic Blood Pressure 2025-04-28 13:37:00.000 78 mm [Hg] Diastolic Blood Pressure 2025-04-27 07:53:00.000 78 mm [Hg] Diastolic Blood Pressure 2025-04-26 11:16:00.000 78 mm [Hg] Diastolic Blood Pressure 2025-04-25 12:31:00.000 78 mm [Hg] Diastolic Blood Pressure 2025-04-24 13:24:00.000 78 mm [Hg] Diastolic Blood Pressure 2025-04-21 10:10:00.000 83 mm [Hg] Diastolic Blood Pressure 2025-04-20 07:49:00.000 84 mm [Hg] Diastolic Blood Pressure 2025-04-19 08:24:00.000 78 mm [Hg] Diastolic Blood Pressure 2025-04-18 10:44:00.000 72 mm [Hg] Diastolic Blood Pressure 2025-04-17 18:56:00.000 [...] AWARENESS FOR SAFETY AND WILL NOTIFY CLINICAL ELECTRIC CLOCK MECHANIC AND PHYSICIAN/PROVIDER WITH ANY CHANGE IN CONDITION. [code = SKILLED NURSE WILL MAINTAIN SITUATIONAL AWARENESS FOR SAFETY AND WILL NOTIFY CLINICAL ELECTRIC CLOCK MECHANIC AND PHYSICIAN/PROVIDER WITH ANY CHANGE IN CONDITION.] [...] MY MEDS AND NO DRINKING ALCOHOL Goal 2025-03-28 Patient Goal - T AKING MY MEDS AND NO DRINKING ALCOHOL Goal 2025-05-29 Patient Goal - T AKING MY MEDS KNOWLEDGE ABOUT MEDICATION AND IDENTIFIED HEALTH ISSUES Goal Patient Goal - T AKING MY MEDS KNOWLEDGE ABOUT MEDICATION AND IDENTIFIED HEALTH ISSUES Goal Provider Goal - A PLAN OF [...] IMPLEMENTED TO MINIMIZE RISK THROUGHOUT CERTIFICATION PERIOD. Progress Notes Progress Notes <paragraph>[Visit Date: 2024 by DAVID MITCHELL RN]:</paragraph><paragraph>SN RECERTIFICATION VISIT (05/29/2025)THIS IS A 59 YEAR OLD YI SPEAKING MALE WITH PRIMARY DIAGNOSIS ALCOHOL USE UNSPECIFIED, PMH, INCLUDES ANXIETY DISORDER, DEPRESSION AND TYPE 2 DIABETES, SEEN FOR SN RECERTIFICATION ASSESSMENT. PATIENT CONTINUES TO NEED MEDICATION MANAGEMENT AND SN TEACHING ON IDENTIFIED DIAGNOSIS DISEASE PROCESS TREATMENT AND MANAGEMENT.PATIENT CLINICAL SYMPTOMS RELATED TO DEPRESSIVE DISORDER ,RESULTS IN ANHEDONIA SOCIAL ISOLATION, POOR COPING SKILLS, HIS MENTAL HEALTH SYMPTOMS CONTROLLED WITH DIFFICULTY, ONGOING MEDICATION EVALUATION AND ASSESSMENT, JUST SAW PSYCHIATRIST, AND C/O OF SEDATION RELATED TO SLEEP MEDICATION, TRAZODONE DOSE DECREASED. </paragraph><paragraph>SN PERFORMED SUICIDE ASSESSMENT CONTRACTS FOR SAFETY DENIED HAVING ANY SUICIDAL OR HOMICIDAL PLANS, NO AUDITORY OR VISUAL HALLUCINATIONS. PATIENT CONTINUES C/O OF INSOMNIA, CHRONIC GENERALIZED JOINT PAIN AND DISCOMFORT, IS STOIC ABOUT PAIN, FORGETS TO ADDRESS PAIN.PATIENT IS NOT HOMEBOUND. PATIENT RESIDES ALONE , NO CAREGIVER, BUT HIS ADULT DAUGHTER PROVIDES SOME EMOTIONAL SUPPORT. PATIENT CONTINUES TO FORGET PRE-POURED MEDICATION AND NON-ADHERENCE WITH DIABETIC MEALS AND SNACKS. HE IS UNSAFE WITH SHARPS.NO DME SUPPLIES. PATIENT REQUIRES ASSISTED VISITS 5 X PER WEEK, FOR MEDICATION MANAGEMENT, MEDICATION PREPOURS SN TEACHING ON IDENTIFIED DIAGNOSIS DISEASE PROCESS TREATMENT AND MANAGEMENT. SN ASSESSMENT MENTAL HEALTH AND GENERAL HEALTH, DIABETES MANAGEMENT AND MONITORING, SN TEACHING ON IDENTIFIED KNOWLEDGE DEFICITS. SN SUICIDE ASSESSMENT, COORDINATION OF CARE WITH PROVIDERS, AND SN ASSESSMENT AND TEACHING ON SAFETY WITH ADLS/IADLS. SN CONTACTED PCP FOR MEDICATION RECONCILLIATION AND PATIENTS POC.</paragraph> <paragraph>[Visit Date: 2024 by DAVID MITCHELL RN]:</paragraph><paragraph>SN VISIT (05/31/2025) PATIENT PRESENTS ALERT ORIENTED X3 SPHERES MOOD DEPRESSED ANXIOUS POOR ATTENTION SPAN POOR ATTPENTION SPAN DIFFICULTY FOCUSING ON TEACHING ABOUT HTN ROLE OFSODIUM, FOOD CHIOCES, UMOTIVATED LEARNER,HAS SIGNIFICANT KNOWLEDGE DEFICITS REGARDING IDENTIFIED DIAGNOSIS DISEASE PROCESS TREATMENT AND MANAGEMENT. SN PERFORMED SUICIDE ASSESSMENT CONTRACTS FOR SAFETY DENIED HAVING ANY SUICIDAL OR HOMICIDAL PLANS, OFFERS A FALSE SENSE OF SAFETY, SN TEACHING SUICIDE PROTOCOL AND EMERGENCY CARE IF HAVING PLANS TO HURT SELF OR OTHERS.PROVIDED SN VISIT (05/31/2025) PATIENT PRESENTS ALERT ORIENTED X3 SPHERES MOOD DEPRESSED ANXIOUS POOR ATTENTION SPAN POOR ATTPENTION SPAN DIFFICULTY FOCUSING ON TEACHING ABOUT HTN ROLE OFSODIUM, FOOD CHIOCES, UMOTIVATED LEARNER,HAS SIGNIFICANT KNOWLEDGE DEFICITS REGARDING IDENTIFIED DIAGNOSIS DISEASE PROCESS TREATMENT AND MANAGEMENT. SN PERFORMED SUICIDE ASSESSMENT CONTRACTS FOR SAFETY DENIED HAVING ANY SUICIDAL OR HOMICIDAL PLANS, OFFERS A FALSE SENSE OF SAFETY, SN TEACHING SUICIDE PROTOCOL AND EMERGENCY CARE IF HAVING PLANS TO HURT SELF OR OTHERS.:</paragraph> Encounters Start Date/Time End Date/Time Encounter Type Admission Type Attending [facility] Care Facility Care Department Encounter ID Discharge Date Discharge Status Discharge Condition Discharge Reason Percent Goals Met 2025-04-02 00:00:00 2025-05-31 00:00:00 Outpatient RECERTIFIC ATION DAVID MITCHELL [facility] [id number]
--- NOTE | 2025-06-01 07:34 | MHC.OFFVIS ---
Intake Visit Reasons: 3m/labs Intake Note: Patient is present for 3M/LABS Urology Medication:TAMSULOSIN,TADALAFIL,VITAMIN C Antibiotic Allergy:GABAPENTIN Blood Thinner:ASPIRIN Head Charger Required: Yes Allergies olanzapine (From ZYPREXA) Allergy (Unknown, Verified 06/01/25 07:52) UNKNOWN mirtazapine (From REMERON) Adverse Reaction (Unknown, Verified 06/01/25 07:52) PAIN IN LEGS sertraline (From ZOLOFT) Adverse Reaction (Unknown, Verified 06/01/25 07:52) ANXIETY gabapentin Adverse Reaction (Verified 06/01/25 07:52) Unknown metformin Adverse Reaction (Verified 06/01/25 07:52) Unknown Medication List - Last Reconciled 06/01/25 by MARTIN Naranjo albuterol sulfate 90 mcg/actuation (Ventolin HFA) 2 puffs inhalation Q4H PRN ascorbic acid (vitamin C) (Vitamin C) 1,000 mg PO DAILY aspirin 81 mg PO DAILY blood sugar diagnostic ([employer] Ultra Test strips) As directed cholecalciferol (vitamin D3) (Vitamin D3) 50 mcg PO DAILY clonazepam 2 mg PO BEDTIME diphenhydramine HCl (Benadryl Allergy) 25 mg PO BEDTIME PRN dorzolamide-timolol 22.3-6.8 mg/mL 1 drp ophthalmic (eye) BID duloxetine 60 mg PO DAILY fluticasone propion-salmeterol 250-50 mcg/dose ([employer]) 1 ea inhalation BID fluticasone propionate 50 mcg/actuation 2 sprays intranasal DAILY PRN glipizide 2.5 mg (1/2 x 5 mg) PO DAILY 30 days hydroxyzine HCl 25 mg PO BID PRN lancets ([employer] Plus Lancet) As directed lisinopril 10 mg PO DAILY loratadine 10 mg PO DAILY magnesium 200 mg PO DAILY 3 months MDD 200mg po montelukast 10 mg PO BEDTIME omeprazole 20 mg PO BID@0630,1630 ropinirole 0.5 mg PO BEDTIME rosuvastatin 40 mg PO BEDTIME tadalafil (Cialis) 5 mg PO DAILY 90 days tadalafil 10 mg PO .on demand PRN 30 days tamsulosin (Flomax) 0.4 mg PO BEDTIME trazodone 150 mg PO BEDTIME PRN verapamil ER 100 mg PO BEDTIME vitamin A 2,400 mcg PO DAILY vitamin E 268 mg PO DAILY zinc acetate 50 mg PO DAILY HPI Comments Details: Milind is a 60-year-old Surinamese-speaking male patient of Dr. Menjivar. He has a past medical history of GERD, asthma, anxiety, hyperlipidemia, hypertension, obstructive sleep apnea, alcohol abuse, suicidal ideation, and diverticulosis. He is being followed up on today via video telehealth for his erectile dysfunction. In discussion with the patient today he reports compliance with daily dosing of Cialis as well as p.r.n. dosing. He does report feeling this has been helpful in maintaining his erections. He reports feeling at times he has been experiencing generalized body aches however is unsure if this is related to the medication or something else. We did review side effects of medication. He continues to follow-up with neurology regarding sleep apnea. When asked he denies any bothersome urinary issues or concerns. He denies urinary urgency, urinary frequency, incontinence, nocturia, hematuria, dysuria, foul smelling urine, changes to urinary stream, flank pain, fever, and or chills. He is happy with his current voiding parameters. We did discuss importance of lifestyle modifications to assist with ED as well as overall health and well-being. All questions were answered. He otherwise offers no other issues or concerns at this time Testosterone: 06/08 311 Free testosterone: 06/08 49.1 PSA:06/08 1.2 PFSH Medical History GERD (gastroesophageal reflux disease) Asthma Anxiety Hyperlipidemia Hypertension BRI (obstructive sleep apnea) Alcohol abuse Suicidal ideation Diverticulosis Surgical History History of laparoscopic cholecystectomy Social History Household Members: None Housing: Apartment Do you presently have visiting nurse or other home services: No Alcohol intake: current Alcohol intake frequency: holidays/special occasions only Alcohol type: beer Comment: sleeping Patient Tobacco Use Status: Never used Tobacco service: No Current occupational status: disabled Sexual orientation: Straight/Heterosexual Review of Systems Const All systems reviewed & are unremarkable except as noted in HPI and below Physical Exam Const General: cooperative, healthy appearing, comfortable, no acute distress, well developed, alert and awake Resp Effort & Inspection: normal respiratory effort and able to speak in complete sentences Psych Appearance: grossly normal and well kempt Speech and movement: Clear speech present Affect: normal affect Attitude: cooperative Thought process: Normal thought process present Thought content: Normal thought content present Insight: Fair insight present (Psych) Judgement: Fair judgement present (Psych) Telehealth Telehealth Telehealth Platform: Telephone Location of provider rendering services: practice address Location of patient: address on file Patient Identification confirmed using: Name, : Yes Telehealth method: video Patient verbally consented to treatment: Yes Patient verbally consented to billing insurance company: Yes Patient informed of any privacy concerns related to visit: Yes Minutes spent on Phone/Video with Pt.: 20 Assessment & Plan Assessment & Plan (1) Erectile dysfunction: Code(s): N52.9 - Male erectile dysfunction, unspecified Category: Medical Plan We did discussed at length potential causes of ED as well as further treatment options and risks and benefits of these treatment options. He currently denies any bothersome urinary issues or concerns. He reports be happy with current voiding parameters. We discussed the importance of lifestyle modifications to assist with ED as well as overall health and well-being. Continue low-dose Cialis as discussed and prescribed. Prescription provided for p.r.n. dosing prior to sexual activity. Continue to follow up with neurology as planned. All questions were answered. Recent labs reviewed with the patient today; as noted above. Follow-up in 3 months with labs; or sooner with any issues, concerns, and or questions. Medications: Refilled tadalafil (Cialis) [id number] [facility] GroupGDRX Member [id number] 5 mg PO DAILY 90 tabs 3RF 90 days tadalafil Take 1 tablet 1 hour prior to sexual activity not to exceed more than 3 times per week [id number] [facility] [id number] 10 mg PO .on demand PRN 10 tabs 3RF sexual activity 30 days N52.9 - Male erectile dysfunction, unspecified Patient Instructions: The patient had an opportunity to ask questions regarding the treatment plan. All questions were answered. Physical exam, labs, and imaging were discussed and reviewed in detail. As well as risks, benefits, and discussion of treatment choices. No major barriers to understanding were identified. The patient expressed understanding and agreement with the above treatment plan. The patient was made aware they should contact our office by phone for worsening of their current condition, the appearance of new symptoms, or with any questions or concerns. Compliance is encouraged with any medications and follow up testing that is ordered. It is a privilege to be allowed the opportunity to participate in? your urological care.? Again, if you have any questions or concerns If you have any questions or concerns please do not hesitate to contact me. The office is [phone]. This note is constructed using voice recognition software. While every effort has been made to ensure accuracy stock and station agent errors may have been included. Yours sincerely, MARTIN Naranjo Coding Level of Care Code Tele Est Pt Level 3 (54290) Add On Problem Visit Only Diagnoses Erectile dysfunction N52.9
--- OUTSIDE RECORDS SUMMARY | 2025-06-01 07:36 | XMS_ITS | Encounter Summary ---
Author Organization [employer] Address 75 [facility] 7t [place] [address] Care Team Providers Care Client Renewal Specialist Name Role Phone Kasey Rodriguez MD Primary Care Provide r Reason for Visit * Reason Comments Med Refill Encounter Details Date Type Department Care Team ([facility] st Contact Info) Description 04/04/2025 Refill [facility] MEDICINE [address] [place], [place] [phone] Kasey Rodriguez MD 230 [place], [place] [phone] Allergic rhinitis, unspecified seasonality, unspecified trigger; Type [...] Description 07/05/2025 9:00 AM EST Office Visit [facility] MEDICINE 230 [place] [address] Kasey Rodriguez MD 230 [place] [address] documented as of this encounter Visit Diagnoses Diagnosis Allergic rhinitis, unspecified seasonality, unspecified trigger Type 2 diabetes mellitus with hyperglycemia, without long-term current use of insulin (HCC) documented in this encounter Additional Health Concerns Assessment Noted Time PHQ-9 Depression Total Score: 2 12/30/19 25 9:22 AM EDT documented as of this encounter Care Teams Client Renewal Specialist Relationship Specialty Start Date End Date Kasey Rodriguez MD [address] [place] [phone] PCP - General Internal Medicine 02/23/23 Robert Parkinson 06/12/23 documented as of this encounter
--- OUTSIDE RECORDS SUMMARY | 2025-06-01 07:36 | XMS_ITS | Encounter Summary ---
Author Organization [employer] Address 75 [facility] 7t [place] [address] Care Team Providers Care Team Psychologist Name Role Phone Kasey Rodriguez MD Primary Care Provide r Reason for Visit * Reason Comments Med Refill Encounter Details Date Type Department Care Team ([facility] st Contact Info) Description 01/03/2024 Refill [facility] MEDICINE 230 [place], [place] [phone] Kasey Rodriguez MD 230 [place], [place] [phone] Chronic obstructive pulmonary disease, unspecified COPD type [...] Description 07/05/2025 9:00 AM EST Office Visit [facility] MEDICINE [address] [place] [address] [phone] Kasey Rodriguez MD 230 [place] [address] documented as of this encounter Visit Diagnoses Diagnosis Chronic obstructive pulmonary disease, unspecified COPD type (CMS/HCC) (HCC) documented in this encounter Additional Health Concerns Assessment Noted Time PHQ-9 Depression Total Score: 4 03/16/20 23 9:21 AM EDT documented as of this encounter Care Teams Team Psychologist Relationship Specialty Start Date End Date Kasey Rodriguez MD [address] [place] [phone] PCP - General Internal Medicine 02/23/23 Robert Parkinson 06/12/23 documented as of this encounter
--- OUTSIDE RECORDS SUMMARY | 2025-06-01 07:36 | XMS_ITS | Encounter Summary ---
Author Organization [employer] Address 75 [facility] 7t [place] [address] Care Team Providers Care Online Education Manager Name Role Phone Kasey Rodriguez MD Primary Care Provide r Reason for Visit * Reason Comments Med Refill Encounter Details Date Type Department Care Team ([facility] st Contact Info) Description 05/10/[address] [facility] MEDICINE 230 [place], [place] [phone] Kasey Rodriguez MD 230 [place], [place] [phone] Type 2 diabetes mellitus with hyperglycemia, without long-term current use of insulin ([facility]); Chronic obstructive pulmonary disease, unspecified COPD type ([facility]/HCC) Social History Tobacco Use Types Packs/Day Years [...] AM EST Office Visit [facility] MEDICINE [address] [place] [address] Kasey Rodriguez MD [address] [place] [address] documented as of this encounter Visit Diagnoses Diagnosis Type 2 diabetes mellitus with hyperglycemia, without long-term current use of insulin (HCC) Chronic obstructive pulmonary disease, unspecified COPD type (CMS/HCC) (HCC) documented in this encounter Additional Health Concerns Assessment Noted Time PHQ-9 Depression Total Score: 4 03/16/20 23 9:21 AM EDT documented as of this encounter Care Teams Online Education Manager Relationship Specialty Start Date End Date Kasey Rodriguez MD [address] [place] [address] PCP - General Internal Medicine 02/23/23 Robert Parkinson 06/12/23 documented as of this encounter
--- OUTSIDE RECORDS SUMMARY | 2025-06-01 07:36 | XMS_ITS | Encounter Summary ---
Author Organization [employer] Address 75 [facility] 7t [place] [address] Care Team Providers Care Excelsior Machine Feeder Name Role Phone Kasey Rodriguez MD Primary Care Provide r Reason for Visit * Reason Comments Med Refill Encounter Details Date Type Department Care Team ([facility] st Contact Info) Description 05/11/2024 Refill [facility] MEDICINE 230 [place], [place] [phone] Kasey Rodriguez MD 230 [place], [place] [phone] Type 2 diabetes mellitus with hyperglycemia, without long-term current use of insulin ([facility]); Chronic obstructive pulmonary disease, unspecified COPD type ([facility]/HCC) Social History Tobacco Use Types Packs/Day Years [...] 9:00 AM EST Office Visit [facility] MEDICINE 230 [place] [address] Kasey Rodriguez MD 230 [place] [address] documented as of this encounter Visit Diagnoses Diagnosis Type 2 diabetes mellitus with hyperglycemia, without long-term current use of insulin (HCC) Chronic obstructive pulmonary disease, unspecified COPD type (CMS/HCC) (HCC) documented in this encounter Additional Health Concerns Assessment Noted Time PHQ-9 Depression Total Score: 4 03/16/20 23 9:21 AM EDT documented as of this encounter Care Teams Excelsior Machine Feeder Relationship Specialty Start Date End Date Kasey Rodriguez MD 230 [place] [address] PCP - General Internal Medicine 02/23/23 Robert Parkinson 06/12/23 documented as of this encounter
--- OUTSIDE RECORDS SUMMARY | 2025-06-01 07:36 | XMS_ITS | Encounter Summary ---
Author Organization [employer] Address 75 [facility] 7t [place] [address] Care Team Providers Care Army Manager Name Role Phone Kasey Rodriguez MD Primary Care Provide r Encounter Details Date Type Department Care Team (Latest Contact Info) Description 10/22/[address] [facility] CONVERSIONS Dental, Provider, DDS Social History [...] Description 07/05/2025 9:00 AM EST Office Visit [facility] MEDICINE 230 [place] [address] Kasey Rodriguez MD 230 [place] [address] documented as of this encounter Visit Diagnoses Not on filedocumented in this encounter Care Teams Army Manager Relationship Specialty Start Date End Date Kasey Rodriguez MD [address] [place] [address] [phone] PCP - General Internal Medicine 02/23/23 Robert Parkinson 06/12/23 documented as of this encounter
--- OUTSIDE RECORDS SUMMARY | 2025-06-01 07:36 | XMS_ITS | Encounter Summary ---
Author Organization [employer] Address 75 [facility] 7t [place] [address] Care Team Providers Care Nutrition Assistant Name Role Phone Kasey Rodriguez MD Primary Care Provide r Reason for Visit * Reason Comments Med Refill Encounter Details Date Type Department Care Team ([facility] st Contact Info) Description 04/15/2024 Refill [facility] MEDICINE 230 [place], [place] [phone] Kasey Rodriguez MD 230 [place], [place] [phone] Social History Tobacco Use Types Packs/Day Years [...] AM EST Office Visit [facility] MEDICINE 230 [place] [address] Kasey Rodriguez MD [address] [place] [address] documented as of this encounter Visit Diagnoses Not on filedocumented in this encounter Additional Health Concerns Assessment Noted Time PHQ-9 Depression Total Score: 4 03/16/20 23 9:21 AM EDT documented as of this encounter Care Teams Nutrition Assistant Relationship Specialty Start Date End Date Kasey Rodriguez MD [address] [place] [phone] PCP - General Internal Medicine 02/23/23 Robert Caring 06/12/23 documented as of this encounter
--- OUTSIDE RECORDS SUMMARY | 2025-06-01 07:36 | XMS_ITS | Encounter Summary ---
Author Organization [employer] Address 75 [facility] 7t [place] [address] Care Team Providers Care Space Systems Operations Manager Name Role Phone Kasey Rodriguez MD Primary Care Provide r Encounter Details Date Type Department Care Team (Latest Contact Info) Description 10/01/2018 Abstract [facility] CONVERSIONS Dental, Provider, DDS Social [...] Description 07/05/2025 9:00 AM EST Office Visit [facility] MEDICINE 230 [place] [address] Kasey Rodriguez MD 230 [place] [address] documented as of this encounter Visit Diagnoses Not on filedocumented in this encounter Care Teams Space Systems Operations Manager Relationship Specialty Start Date End Date Kasey Rodriguez MD [address] [place] [address] [phone] PCP - General Internal Medicine 02/23/23 Robert Parkinson 06/12/23 documented as of this encounter
--- OUTSIDE RECORDS SUMMARY | 2025-06-01 07:36 | XMS_ITS | Encounter Summary ---
Author Organization [employer] Address 75 [facility] 7t [place] [address] Care Team Providers Care Detention Deputy Name Role Phone Kasey Rodriguez MD Primary Care Provide r Reason for Visit * Reason Comments Med Refill Encounter Details Date Type Department Care Team ([facility] st Contact Info) Description 02/07/2025 Refill [facility] MEDICINE 230 [place], [place] [phone] Kasey Rodriguez MD 230 [place], [place] [phone] Essential hypertension Social History Tobacco Use Types [...] Description 07/05/2025 9:00 AM EST Office Visit [facility] MEDICINE 230 [place] [address] Kasey Rodriguez MD 230 [place] [address] documented as of this encounter Visit Diagnoses Diagnosis Essential hypertension Unspecified essential hypertension documented in this encounter Additional Health Concerns Assessment Noted Time PHQ-9 Depression Total Score: 2 12/30/19 25 9:22 AM EDT documented as of this encounter Care Teams Detention Deputy Relationship Specialty Start Date End Date Kasey Rodriguez MD 230 [place] [address] PCP - General Internal Medicine 02/23/23 Robert Parkinson 06/12/23 documented as of this encounter
--- OUTSIDE RECORDS SUMMARY | 2025-06-01 07:36 | XMS_ITS | Encounter Summary ---
Author Organization [employer] [facility] Address [address] [place] [address] 7t [place] [address] Care Team Providers Care Car Sales Representative Name Role Phone Kasey Rodriguez MD Primary Care Provide r Encounter Details Date Type Department Care Team (Latest Contact Info) Description 09/11/2021 Abstract [facility] CONVERSIONS Dental, Provider, DDS Social History [...] Description 07/05/2025 9:00 AM EST Office Visit [facility] MEDICINE 230 [place] [address] Kasey Rodriguez MD 230 [place] [address] documented as of this encounter Procedures Procedure Name Priority Date/Time Associated Diagnosis Comments 2,3,5,8,9,12,14,15 PARTIAL DENTURE - CAST METAL Routine 09/11/2021 12:00 AM EDT documented in this encounter Visit Diagnoses Not on filedocumented in this encounter Care Teams Car Sales Representative Relationship Specialty Start Date End Date Kasey Rodriguez MD [address] [place] [address] [phone] PCP - General Internal Medicine 02/23/23 Robert Parkinson 06/12/23 documented as of this encounter
--- OUTSIDE RECORDS SUMMARY | 2025-06-01 07:36 | XMS_ITS | Encounter Summary ---
Author Organization [employer] Address 75 [facility] 7t [place] [address] Care Team Providers Care Monorail Car Operator Name Role Phone Kasey Rodriguez MD Primary Care Provide r Reason for Visit * Reason Comments Med Refill Encounter Details Date Type Department Care Team ([facility] st Contact Info) Description 01/27/2024 Refill [facility] MEDICINE 230 [place], [place] [phone] Kasey Rodriguez MD 230 [place], [place] [phone] Chronic obstructive pulmonary disease, unspecified COPD type [...] 9:00 AM EST Office Visit [facility] MEDICINE [address] [place] [address] [phone] Kasey Rodriguez MD 230 [place] [address] documented as of this encounter Visit Diagnoses Diagnosis Chronic obstructive pulmonary disease, unspecified COPD type (CMS/HCC) (HCC) documented in this encounter Additional Health Concerns Assessment Noted Time PHQ-9 Depression Total Score: 4 03/16/20 23 9:21 AM EDT documented as of this encounter Care Teams Monorail Car Operator Relationship Specialty Start Date End Date Kasey Rodriguez MD [address] [place] [phone] PCP - General Internal Medicine 02/23/23 Robert Parkinson 06/12/23 documented as of this encounter
--- OUTSIDE RECORDS SUMMARY | 2025-06-01 07:36 | XMS_ITS | Encounter Summary ---
Author Organization [employer] Address 75 [facility] 7t [place] [address] Care Team Providers Care Inspector Wreath Name Role Phone Kasey Rodriguez MD Primary Care Provide r Reason for Visit * Reason Comments Med Refill Encounter Details Date Type Department Care Team ([facility] st Contact Info) Description 05/05/2025 Refill [facility] MEDICINE 230 [place], [place] [phone] Kasey Rodriguez MD 230 [place], [place] [phone] Chronic obstructive pulmonary disease, unspecified COPD type [...] Description 07/05/2025 9:00 AM EST Office Visit [facility] MEDICINE 230 [place] [address] Kasey Rodriguez MD 230 [place] [address] documented as of this encounter Visit Diagnoses Diagnosis Chronic obstructive pulmonary disease, unspecified COPD type (CMS/HCC) ([facility]) Asthma, unspecified asthma severity, unspecified whether complicated, unspecified whether persistent documented in this encounter Additional Health Concerns Assessment Noted Time PHQ-9 Depression Total Score: 2 12/30/19 25 9:22 AM EDT documented as of this encounter Care Teams Inspector Wreath Relationship Specialty Start Date End Date Kasey Rodriguez MD 230 [place] [address] PCP - General Internal Medicine 02/23/23 Robert Parkinson 06/12/23 documented as of this encounter
--- OUTSIDE RECORDS SUMMARY | 2025-06-01 07:36 | XMS_ITS | Encounter Summary ---
Author Organization [employer] Address 75 [facility] 7t [place] [address] Care Team Providers Care Records Analyst Name Role Phone Kasey Rodriguez MD Primary Care Provide r Reason for Visit * Reason Comments Med Refill Encounter Details Date Type Department Care Team ([facility] st Contact Info) Description 04/14/2024 Refill [facility] MEDICINE 230 [place], [place] [phone] Kasey Rodriguez MD 230 [place], [place] [phone] Social History Tobacco Use Types Packs/Day Years [...] 9:00 AM EST Office Visit [facility] MEDICINE 230 [place] [address] Kasey Rodriguez MD [address] [place] [address] documented as of this encounter Visit Diagnoses Not on filedocumented in this encounter Additional Health Concerns Assessment Noted Time PHQ-9 Depression Total Score: 4 03/16/20 23 9:21 AM EDT documented as of this encounter Care Teams Records Analyst Relationship Specialty Start Date End Date Kasey Rodriguez MD [address] [place] [address] PCP - General Internal Medicine 02/23/23 Robert Caring 06/12/23 documented as of this encounter
--- OUTSIDE RECORDS SUMMARY | 2025-06-01 07:36 | XMS_ITS | Encounter Summary ---
Author Organization [employer] Address 75 [facility] 7t [place] [address] Care Team Providers Care Waste Baler Name Role Phone Kasey Rodriguez MD Primary Care Provide r Encounter Details Date Type Department Care Team ([facility] st Contact Info) Description 09/14/2024 Telephone [facility] MEDICINE 230 [place], [place] [phone] Desiree Chan, PharmD 230 [place] [address] Social History Tobacco Use Types Packs/Day Years [...] Visit [facility] MEDICINE [address] [place] [phone] Kasey Rodriguez MD [address] [place] [address] documented as of this encounter Visit Diagnoses Not on filedocumented in this encounter Additional Health Concerns Assessment Noted Time PHQ-9 Depression Total Score: 4 03/16/20 23 9:21 AM EDT documented as of this encounter Care Teams Waste Baler Relationship Specialty Start Date End Date Kasey Rodriguez MD [address] [place] [phone] PCP - General Internal Medicine 02/23/23 Robert Caring 06/12/23 documented as of this encounter
--- OUTSIDE RECORDS SUMMARY | 2025-06-01 07:36 | XMS_ITS | Encounter Summary ---
Author Organization [employer] Address 75 [facility] 7t [place] [address] Care Team Providers Care Machine Hostler Name Role Phone Kasey Rodriguez MD Primary Care Provide r Reason for Visit * Reason Comments Med Refill Encounter Details Date Type Department Care Team ([facility] st Contact Info) Description 04/13/2024 Refill [facility] MEDICINE 230 [place], [place] [phone] Kasey Rodriguez MD 230 [place], [place] [phone] Social History Tobacco Use Types Packs/Day Years [...] Description 07/05/2025 9:00 AM EST Office Visit [facility] MEDICINE 230 [place] [address] Kasey Rodriguez MD [address] [place] [address] documented as of this encounter Visit Diagnoses Not on filedocumented in this encounter Additional Health Concerns Assessment Noted Time PHQ-9 Depression Total Score: 4 03/16/20 23 9:21 AM EDT documented as of this encounter Care Teams Machine Hostler Relationship Specialty Start Date End Date Ksaey Rodriguez MD [address] [place] [phone] PCP - General Internal Medicine 02/23/23 Robert Caring 06/12/23 documented as of this encounter
--- OUTSIDE RECORDS SUMMARY | 2025-06-01 07:36 | XMS_ITS | Patient Health Record ---
Author Organization [facility] Address [address] [place] [address] Care Team Providers Care Fiberglass Container Winding Operator Name Role Phone Chandni Ospina Primary Care Provider Torin Sarmiento Unavailable [phone] Allergies Allergen (clinical drug ingredient) Drug/Non Drug [...] Status Risk Notes Problem Acquired hallux valgus (49113459) Hallux valgus (acquired), left foot (M20.12) Active confirmed Problem Acquired hallux valgus (49434817) Hallux valgus (acquired), right foot (M20.11) Active confirmed Problem Polyneuropathy due to type 2 diabetes mellitus (581025036) Type 2 diabetes mellitus with diabetic polyneuropathy (E11.42) Active confirmed Problem Polyneuropathy due to diabetes mellitus type I (398387309) Type 1 diabetes mellitus with diabetic polyneuropathy (E10.42) Active confirmed Plan Of Treatment Pending Test Test Name Order Date X ray : Foot, left 3V 01/23/2021 X ray : Foot, right 3V 01/23/2021 [id number] SKIN LESIONS, OVER 4 01/24/20 21 [id number] SKIN LESIONS, OVER 4 05/13/20 21 [id number] SKIN LESIONS, OVER 4 08/12/19 22 Insurance Providers Payer Name Payer Address Payer Phone Subscriber Number Group Number Insured Name Patient Relationship to Insured Coverage Start Date Coverage End Date [facility] [employer] Claims [address] [place] [id number] Milind Whitman Self - patient is the [...]
--- OUTSIDE RECORDS SUMMARY | 2025-06-01 07:36 | XMS_ITS | Encounter Summary ---
Author Organization [employer] Address 75 [facility] 7t [place] [address] Care Team Providers Care Delimber Operator Name Role Phone Kasey Rodriguez MD Primary Care Provide r Reason for Visit * Reason Comments Med Refill Encounter Details Date Type Department Care Team ([facility] st Contact Info) Description 04/13/[address] [facility] MEDICINE 230 [place], [place] [phone] Kasey Rodriguez MD 230 [place], [place] [phone] Social History Tobacco Use Types Packs/Day Years [...] with others, in a hotel, in a care home, living outside on the street, on [...] 07/05/2025 9:00 AM EST Office Visit [facility] MEDICINE 230 [place] [address] Kasey Rodriguez MD [address] [place] [address] documented as of this encounter Visit Diagnoses Not on filedocumented in this encounter Additional Health Concerns Assessment Noted Time PHQ-9 Depression Total Score: 4 03/16/20 23 9:21 AM EDT documented as of this encounter Care Teams Delimber Operator Relationship Specialty Start Date End Date Kasey Rodriguez MD [address] [place] [phone] PCP - General Internal Medicine 02/23/23 Robert Caring 06/12/23 documented as of this encounter
--- OUTSIDE RECORDS SUMMARY | 2025-06-01 07:36 | XMS_ITS | Clinical Summary ---
Author Organization [employer] Address [address] [place] [address] 7[address] [place] [address] Care Team Providers Care Retail Shift Supervisor Name Role Phone Ksaey Rodriguez MD Primary Care Provide r Allergies [...] 60 mg by mouth in the morning. 08/16/19 Active traZODone (Desyrel) 150 MG tablet Take 150 mg by mouth if needed at bedtime. 08/18/19 23 Active Blood Pressure Monitor kit Check blood pressure twice a wee. Dx hypertension 1 kit 03/05/20 23 Active OneTouch Delica Lancets 33G miscIndications :Type 2 diabetes mellitus with hyperglycemia, without long-term current use of insulin (HCC) Use 1 lancet to monitor blood glucose twice daily 100 each 3 04/08/20 23 Active ibuprofen 400 MG tablet TAKE 1 TABLET BY MOUTH EVERY 6 HOURS NEEDED FOR PAIN OR FEVER 20 tablet 04/21/20 23 Active Blood Glucose Monitoring Suppl (ONE TOUCH ULTRA 2) w/Device kitIndications: Type 2 diabetes mellitus with hyperglycemia, without long-term current use of insulin (HCC) Use to test blood sugar two times daily 1 kit 05/04/20 23 Active Fluticasone-Ben meterol 250-50 MCG/ACT aerosol powderIndicatio ns:Chronic obstructive pulmonary disease, unspecified COPD type (CMS/HCC) (HCC) INHALE ONE PUFF BY MOUTH TWICE A DAY RINSE MOUTH AFTER USING (BULK) 60 each 11 05/16/20 24 Active OneTouch Ultra Test test stripIndication s:Type 2 diabetes mellitus with hyperglycemia, without long-term current use of insulin ([facility]) USE DIRECTED TWO TIMES A DAY (BULK) 100 strip 11 06/01/20 24 Active Diclofenac Sodium 1 % gelIndications: Chronic pain of both knees Apply 1 Application topically every 12 (twelve) hours if needed (apply on affected area). 150 g 1 09/28/19 25 Active aspirin (Aspirin Low Dose) 81 MG EC tablet TAKE ONE TABLET BY MOUTH EVERY DAY 90 tablet 3 10/13/19 25 Active Ventolin HFA 108 (90 Base) MCG/ACT inhalerIndicati ons:Asthma, unspecified asthma severity, unspecified whether complicated, unspecified whether persistent INHALE 2 PUFFS BY MOUTH EVERY 6 HOURS NEEDED FOR WHEEZING (BULK) 18 g 6 10/20/19 25 Active loratadine (Claritin) 10 MG tablet TAKE ONE TABLET BY MOUTH EVERY MORNING ^1R1 90 tablet 3 01/05/20 25 Active rosuvastatin (Crestor) 40 MG tabletIndicatio ns:Essential hypertension TAKE ONE TABLET BY MOUTH AT BEDTIME 30 tablet 11 02/29/20 25 Active lisinopril 10 MG tabletIndicatio ns:Essential hypertension TAKE ONE TABLET BY MOUTH EVERY MORNING 30 tablet 11 02/29/20 25 Active fluticasone (Flonase) 50 MCG/ACT nasal sprayIndication s:Allergic rhinitis, unspecified seasonality, unspecified trigger Administer 1-2 sprays into each nostril Once per day. Shake gently. Before first use, prime pump. After use, clean tip and replace cap. 16 g 2 04/20/20 25 2025 Active glipiZIDE XL (Glucotrol XL) 2.5 MG 24 hr tabletIndicatio ns:Type 2 diabetes mellitus with hyperglycemia, without long-term current use of insulin ([facility]) Take 1 tablet (2.5 mg) by mouth Once per day. Do not crush, chew, or split.TAKE ONE TABLET BY MOUTH EVERY MORNING DO NOT BREAK, CRUSH, DISSOLVE OR CHEW ^1R1 30 tablet 11 04/20/20 25 Active Mounjaro 5 MG/0.5ML solution auto-injectorIn dications:Type 2 diabetes mellitus with hyperglycemia, without long-term current use of insulin ([facility]) INJECT 5MG UNDER THE SKIN ONCE PER WEEK; START AFTER FINISHING 4 WEEKS OF 2.5MG DOSE 2 mL 2 05/03/20 25 Active Lancets (OneTouch Delica Plus [id number]) miscIndications :Type 2 diabetes mellitus with hyperglycemia, without long-term current use of insulin (HCC) USE DIRECTED TWO TIMES A DAY (BULK) 100 each 11 05/24/20 25 Active Lancets (OneTouch Delica Plus [id number]) miscIndications :Type 2 diabetes mellitus with hyperglycemia, without long-term current use of insulin (HCC) USE DIRECTED TWO TIMES A DAY (BULK) 100 each 11 05/16/20 24 2024 Discontinued Tirzepatide (Mounjaro) 2.5 MG/0.5ML solution auto-injectorIn dications:Type 2 diabetes mellitus with hyperglycemia, without long-term current use of insulin ([facility]) Inject 2.5 mg under the skin 1 (one) time per week. 2 mL 2 04/11/20 25 2024 Discontinued Active Problems Problem Noted Date [...] 05/02/2021 Peripheral neuropathy 03/06/2021 Overview (06/23/2024): [facility], [facility] Aortic dilatation 06/21/2020 Overview (06/23/2024): [...] Farrell Obstructive sleep apnea 03/25/2013 Overview (06/23/2024): [facility] Polysomnogram: Date 06/22/2013; Wt 225# SE 40%; SM 65%; REM 10%; RDI 9 HI 8, worse in REM (RDI 51 AHI 48) Central apneas 0 Obstructive apneas 0 Mixed apneas 0 hypopneas 22; RERAs 5 ;average oxygen saturation 95% (lowest 77% - without saturations <88% for 5% or more of study); PLMs 9. [facility] Polysomnogram treatment study. Date 07/21/2013. SE 61 [...] Encounters Date Type Department Care Team Description 05/24/2025 Refill [facility] [address] [place] [address] Kasey Rodriguez MD Type 2 diabetes mellitus with hyperglycemia, without long-term current use of insulin ([facility]) 05/15/2025 Orders Only GENERIC EXTERNAL DATA DEPARTMENT Provider, Generic External Data 05/08/2025 Telephone [facility] [address] [place] [address] Tiffany Driscoll, OD 05/05/2025 Refill [facility] [address] [place] [address] Kasey Rodriguez MD Chronic obstructive pulmonary disease, unspecified COPD type ([facility]/HCC) ([facility]); Asthma, unspecified asthma severity, unspecified whether complicated, unspecified whether persistent 05/02/2025 Refill [facility] [address] [place] [address] Kasey Rodriguez MD Type 2 diabetes mellitus with hyperglycemia, without long-term current use of insulin (HCC) 04/20/2025 Refill [facility] [address] [place] [address] Kasey Rodriguez MD Allergic rhinitis, unspecified seasonality, unspecified trigger; Type 2 diabetes mellitus with hyperglycemia, without long-term current use of insulin (HCC) 04/18/2025 Orders Only GENERIC EXTERNAL DATA DEPARTMENT Provider, Generic External Data 04/13/2025 Patient Outreach [address] [address] Kavon Trejo Recovery Supports 04/11/2025 9:00 AM EDT Office Visit [address] [address] Kasey Rodriguez MD Type 2 diabetes mellitus with hyperglycemia, without long-term current use of insulin (HCC) (Primary Dx); Essential hypertension; Severe obesity with body mass index (BMI) of 35.0 to 39.9 with comorbidity (HCC); Screening for colon cancer; Onychomycosis; Dietary counseling; Exercise counseling; Encounter for immunization; Encounter for vaccination 04/11/2025 Travel 04/10/2025 Telephone [facility] [address] [place] [phone] Kasey Rodriguez MD Chart Prep 04/04/[address] [phone] Kasey Rodriguez MD Allergic rhinitis, unspecified seasonality, unspecified trigger; Type 2 diabetes mellitus with hyperglycemia, without long-term current use of insulin (HCC) from Last 3 Months Immunizations Immunization Administration [...] the past 12 months, has t he [employer], gas, oil or water company threatened to [...] 07/05/2025 9:00 AM EST Office Visit [facility] [address] [place] [address] Kasey Rodriguez MD [address] [place], [place] [phone] Health Maintenance Due Date Last Done Comments [...] patients manage their type 2 diabetes No Elver Jefferyssica Weekly blood pressure task Care Plan Weekly blood pressure task No Jeffery, Yesenia Help patients manage their type 2 diabetes Care Plan Help patients manage their type 2 diabetes No Jose D Yesenia Patient has chronic kidney disease Care Plan Patient has chronic kidney disease No Jose D Yesenia Weekly blood pressure task Care Plan Weekly blood pressure task No Jeffery Yesenia Patient has chronic kidney disease Care Plan Patient has chronic kidney disease No Jeffery Yesenia Procedures Procedure Name Priority Date/Time Associated Diagnosis Comments TESTOSTERONE, FREE, BIOAVAILABLE AND TOTAL, MALES (ADULT), IA Routine 05/15/2025 8:33 AM EST PSA, TOTAL Routine 05/15/2025 8:33 AM EST METHYLMALONIC ACID Routine 04/18/2025 8: 34 AM [...] Recently Relevant to Health Maintenance Results * Testosterone, Free, Bioavailable and Total, Males (Adult), IA (05/15/2025 8:33 AM EST) Testosterone, Total 311 250 - 1100 ng/dL [facility] Comment:Men with clinically significant hypogonadalsymptoms and testosterone values repeatedly inthe range of the 200-300 ng/dL or less, maybenefit from testosterone treatment afteradequate risk and benefits counseling.For additional information, please refer tohttp://[email or web address]/faq/[email or web address](This link is being provided for informational/educational purposes only.)This test was developed and its analytical performancecharacteristics have been determined by [facility] [place], [place]. It hasnot been cleared or approved by the U.S. Food and DrugAdministration. This assay has been validated pursuantto the CLIA regulations and is used for clinicalpurposes. Testosterone, Free 49.1 35.0 - 155.0 pg/mL [facility] Comment:This test was develo ped and its analytical performancecharacteristics have been determined by [facility] [place], [place]. It hasnot been cleared or approved by the U.S. Food and DrugAdministration. This assay has been validated pursuantto the CLIA regulations and is used for clinicalpurposes.THIS TEST WAS PERFORMED AT:[employer] [id number] [place] [address]SMUCEQEHERNANDEZ CASEY MD,PHD 05/15/2025 8:33 AM EST 05/15/2025 8:33 AM EST us Generic External Data Provider LAB BLOOD ORDERAB LES Final Result [facility] [address] [place] [phone] * PSA,Total (05/15/2025 8:33 AM EST) Prostate Specific Antigen 1.18 <0.05 - 4.0 ng/mL [facility] Comment:PSA methodology: Derrick kaylin Alieliaty i ChemiluminescentMicroparticle Immunoassay (CMIA) 05/15/2025 8:33 AM EST 05/15/2025 8:33 AM EST Generic External Data Provider LAB BLOOD ORDERAB LES Final Result Performing Organization Address City/[facility]/ZIP Co de Phone Number [facility] [address] [place] [phone] * Vitamin B12 (Cobalamin) and Folate Panel, Serum (04/18/2025 8:34 AM EST) Vitamin B12 537 200 - 900 pg/mL [facility] Comment:NORMAL 200-900 PG/ML INDETERMINATE 160-199 PG/ML DEFICIENT < 160 PG/ML Folate 10.7 > or = 4.0 ng/mL [facility] Comment:Reference Values:> o r = 4.0 ng/mL< 4.0 ng/mL suggests folate deficiency Methotrexate, aminopterin and folinic acid(leucovorin) are chemotherapeutic agents whose molecularstructures are similar to folate; therefore, the Architectfolate assay cannot be used for patients using these drugs. 04/18/2025 8:34 AM EST 04/18/2025 8:40 AM EST Generic External Data Provider LAB BLOOD ORDERAB LES Final Result Performing Organization Address City/[facility]/ZIP Co de Phone Number [facility] [address] [place] [phone] * Methylmalonic Acid (04/18/2025 8:34 AM EST) Methylmalonic Acid 141 69 - 390 nmol/L [facility] Comment: Serum methylmalonic acid (MMA) levels [...] outcomes,such as neural tube defects and intrauterine growthrestriction.[employer] utilized Multi-Modal Decomposition(MMD) analysis to establish first and second trimester-specific MMA reference intervals in , as givenbelow:MMA, First trimester (<13 wks gestation): 58-167 nmol/LMMA, Second trimester (13-23 wks gestation):63-241 nmol/LThis test was developed and its analytical performancecharacteristics have been determined by [employer]. It has not been cleared or approved by theFDA. This assay has been validated pursuant to the CLIAregulations and is used for clinical purposes.THIS TEST WAS PERFORMED AT:[employer] [id number] [place] [address]DEJGLCNHERNANDEZ CASEY MD,PHD 04/18/2025 8:34 AM EST 04/18/2025 8:40 AM EST us Generic External Data Provider LAB BLOOD ORDERAB LES Final Result [facility] [address] [place] [phone] * Homocysteine (04/18/2025 8:34 AM EST) Homocysteine 10.5 < or = 15.2 umol/L [facility] Comment:Homocysteine is incr eased by functional deficiency offolate or vitamin B12. Testing for methylmalonic aciddifferentiates between these deficiencies. Other causesof increased homocysteine include renal failure, folateantagonists such as methotrexate and phenytoin, andexposure to nitrous oxide.Cassi Sloan, et al., Claudia [employer] Med. 1999;131(5):331-9.THIS TEST WAS PERFORMED AT:[employer] [place] [address]FPMPSAGUILAR MENG MD 04/18/2025 8:34 AM EST 04/18/2025 8:40 AM EST Generic External Data Provider LAB BLOOD ORDERAB LES Final Result Performing Organization Address [facility] de Phone Number [facility] [address] [place] [phone] * Ferritin (04/18/2025 8:34 AM EST) Ferritin 164 20 - 250 ng/mL [facility] 04/18/2025 8:34 AM EST 04/18/2025 8:40 AM EST Generic External Data Provider LAB BLOOD ORDERAB LES Final Result Performing Organization Address [facility] Phone Number [facility] [address] [place] [phone] * Cologuard?? colon cancer screening (04/17/2025 9:39 AM EST) Cologuard Result Negative Negative 04/21/20 25 7:58 AM EST [employer] (CLIA #:[id number]) Comment: The Cologuard (TM) test was performed [...] cancer. Following a negative Cologuard result, the [place] [employer] Society and U.S. Multi-Society Task Force screening guidelines recommend a Cologuard re-screening interval of 3 years. References: [place] [employer] Guideline for Colorectal Cancer Screening: https://www.cancer.org/cancer/ckkjm-vycbok-fvjrha/lbivottsh-ptkpbkswp-whbqfpr/ac s-rec ommendations.html.; Sandeep DK, Giselle CR, Saskia SloanK, Colorectal Cancer Screening: Recommendations for Physicians and Patients from the U.S. Multi-Society Task Force on Colorectal Cancer Screening , Am J Gastroenterology 2017; 112:5014-3617. TEST DESCRIPTION: Composite algorithmic analysis of stool [...] (Toyin Morris al, N Engl J Med 2014;370(14):4766-0281.) Cologuard may produce a false negative or false positive result (no colorectal cancer or precancerous polyp present at colonoscopy follow up). A negative Cologuard test result does not guarantee the absence of CRC or advanced adenoma (pre-cancer). The current Cologuard screening interval is every 3 years. ([place] [employer] and U.S. Multi-Society Task Force). Cologuard performance data in a 10,000 patient pivotal study using colonoscopy as the reference method can be accessed at the following location: www.[employer]dexLink.com/results. Additional description of the Cologuard test process, warnings and precautions can be found at www.cologPureSignCord.com. Stool specimen (specimen) 04/17/2025 9:39 AM EST 04/18/2025 10:49 AM EST us Kasey Menjivar MD LAB MOLECULAR DIAGNOS TICS ORDERABLES Final Result [employer] (CLIA #:[id number]) [address] [place] [address], * (ABNORMAL) POCT Hgb A1c (04/11/2025 9:03 AM EDT) Hemoglobin A1C 9.4(A) 4.0 - 5.7 % QC Media Lot # [id number] Lot# Expiration Date 5,027 Blood 04/11/2025 9:03 AM EDT us Kasey Menjivar MD POINT OF CARE TEST EN TER/EDIT ORDERABLES Final Result * (ABNORMAL) POCT Glucose (04/11/2025 9:01 AM EDT) Glucose Blood, POC 334(A) 60 - 200 mg/dL [employer] Lot # [id number] Lot# Expiration Date 3,026 Blood Capillary blood specimen / Unknown 04/11/2025 9:01 AM EDT us Kasey Menjivar MD POINT OF CARE TEST EN TER/EDIT ORDERABLES Final Result * Albumin, Random Urine W/Creatinine (12/29/2024 10:18 AM EDT) Creatinine, Urine 141.17 mg/dL [facility] Microalbumin Urine 15.0 mg/L [facility] Microalbum Creatinine Ratio Ur 10.6 <30 ug/mg cr [facility] Comment:Albumin/Creatinine R atio Reference Ranges: Normal: < 30 ug/mg creatinine Microalbuminuria: 30 - 300 ug/mg creatinineClinical Albuminuria: > 300 ug/mg creatinine Urine (Urine, Random) 12/29/2024 10:18 AM EDT 12/29/2024 11:17 AM EDT Kasey Menjivar MD LAB URINE ORDERABLES Final Result Performing Organization Address [facility] Co de Phone Number [facility] [address] [place] [phone] * Hepatitis C Antibody with Reflex to HCV, RNA, Quantitative, Real-Time PCR (09/27/2024 2:12 PM EDT) Hepatitis C Antibody Nonreactive Nonreactive [facility] Comment:Antibodies to HCV no t detected; does not exclude early acuteHCV infection. Blood Venous blood specimen / Unknown 09/27/2024 2:12 PM EDT 09/27/2024 4:10 PM EDT us Kasey Menjivar MD LAB BLOOD ORDERABLES Final Result Performing Organization Address City/[facility] Co de Phone Number [facility] [address] [place] [phone] * HIV-1/2 Antigen and Antibodies, Fourth Generation, with Reflexes (09/27/2024 2:12 PM EDT) HIV AB/AG Nonreactive Nonreactive [facility] Comment:HIV-1 p24 Ag and/or HIV-1/HIV-2 Ab not detected.A test result that is nonreactive does not exclude thepossibility of exposure to or infection with HIV-1 and/orHIV-2. Nonreactive results in this assay for individualswith prior exposure to HIV-1 and/or HIV-2 may be due toantigen and antibody levels that are below the limit ofdetection of this assay.The [employer] HIV Ag/Ab Combo assay result andsupplemental assay results should be interpreted inconjunction with the patient's clinical presentation,history and other laboratory results. If the results areinconsistent with clinical evidence, additional testing issuggested to confirm the result. Blood Venous blood specimen / Unknown 09/27/2024 2:12 PM EDT 09/27/2024 4:10 PM EDT us Kasey Menjivar MD LAB BLOOD ORDERABLES Final Result [facility] [address] [place] [phone] * (ABNORMAL) Lipid Panel, Standard (09/27/2024 2:12 PM EDT) Triglycerides 84 <150 mg/dL [facility] Comment:Desirable Triglyceri de: less than 150 mg/dLBorderline High Triglyceride 150-199 mg/dLHigh Triglyceride: 200-499 mg/dLVery High Triglyceride: greater than or equal to 5OO mg/dL Cholesterol 99 <200 mg/dL [facility] Comment:Desirable Cholestero l: less than 200 mg/dLBorderline High Cholesterol: 200-239 mg/dLHigh Cholesterol: greater than 239 mg/dL LDL Cholesterol Calculated 43 <100 mg/dL [facility] Comment:Desirable LDL: less than 100 mg/dLNear Optimal/Above Optimal LDL: 110- 129 mg/dLBorderline High LDL: 130-159 mg/dLHigh LDL: 160-189 mg/dLVery High LDL: greater than or equal to 190 mg/dL HDL Cholesterol 40(L) >40 mg/dL [facility] Comment:Desirable HDL: great er than 40 mg/dL Note: This HDL assay may give artificially low results in patients with liver disease. Blood Venous blood specimen / Unknown 09/27/2024 2:12 PM EDT 09/27/2024 4:10 PM EDT Kasey Menjivar MD LAB BLOOD ORDERABLES Final Result [facility] [address] [place] [address] [phone] from Last 3 Months or Most Recently Relevant to Health Maintenance Additional Health Concerns Active Problems Noted Date Diagnosed Date Help patients manage their type 2 diabetes 05/08 Weekly blood pressure task 05/08/2025 Help patients manage their type 2 diabetes 05/08 Patient has chronic kidney disease 05/08/2025 Weekly blood pressure task 05/08/2025 Patient has chronic kidney disease 05/08/2025 Insurance [facility] ST[facility] ONE CARE < [address] [facility] Care Teams Retail Shift Supervisor Relationship Specialty Start Date End Date Kasey Rodriguez MD [address] [place], [place] [phone] PCP - General Internal Medicine 02/23/23 Robert Parkinson 06/12/23
--- OUTSIDE RECORDS SUMMARY | 2025-06-01 07:36 | XMS_ITS | Encounter Summary ---
Author Organization [employer] Address [address] [facility] [address]t [place] [address] Care Team Providers Care Brand Leader Name Role Phone Kasey Rodriguez MD Primary Care Provide r Reason for Visit * Reason Comments Med Refill Encounter Details Date Type Department Care Team ([facility] st Contact Info) Description 01/26/2024 Refill [facility] [address] [place], [place] [phone] Kasey Rodriguez MD [address] [place], [place] [phone] Chronic obstructive pulmonary disease, unspecified COPD type [...] 9:00 AM EST Office Visit [facility] [address] [place] [address] [phone] Kasey Rodriguez MD [address] [place] [address] documented as of this encounter Visit Diagnoses Diagnosis Chronic obstructive pulmonary disease, unspecified COPD type (CMS/HCC) (HCC) documented in this encounter Additional Health Concerns Assessment Noted Time PHQ-9 Depression Total Score: 4 03/16/20 23 9:21 AM EDT documented as of this encounter Care Teams Brand Leader Relationship Specialty Start Date End Date Kasey Rodriguez MD [address] [place] [phone] PCP - General Internal Medicine 02/23/23 Robert Parkinson 06/12/23 documented as of this encounter
--- OUTSIDE RECORDS SUMMARY | 2025-06-01 07:36 | XMS_ITS | Encounter Summary ---
Author Organization [employer] Address [address] [facility] 7t [place] [address] Care Team Providers Care Ore Washer Name Role Phone Kasey Rodriguez MD Primary Care Provide r Reason for Visit * Reason Comments Med Refill Encounter Details Date Type Department Care Team ([facility] st Contact Info) Description 09/21/2024 Refill [facility] [address] [place], [place] [phone] Kasey Rodriguez MD [address] [place], [place] [phone] Social History Tobacco Use Types Packs/Day Years [...] 07/05/2025 9:00 AM EST Office Visit [facility] [address] [place] [address] Kasey Rodriguez MD [address] [place] [phone] documented as of this encounter Visit Diagnoses Not on filedocumented in this encounter Additional Health Concerns Assessment Noted Time PHQ-9 Depression Total Score: 4 03/16/20 23 9:21 AM EDT documented as of this encounter Care Teams Ore Washer Relationship Specialty Start Date End Date Kasey Rodriguez MD [address] [place] [phone] PCP - General Internal Medicine 02/23/23 Robert Caring 06/12/23 documented as of this encounter
--- OUTSIDE RECORDS SUMMARY | 2025-06-01 07:37 | XMS_ITS | Encounter Summary ---
Author Organization [employer] Address [address] [facility] 7t [place] [address] Care Team Providers Care Certified Caregiver Name Role Phone Kasey Rodriguez MD Primary Care Provide r Reason for Visit * Reason Comments Med Refill Encounter Details Date Type Department Care Team ([facility] st Contact Info) Description 03/16/2024 Refill [facility] [address] [place], [place] [phone] Kasey Rodriguez MD [address] [place], [place] [phone] Essential hypertension Social History Tobacco Use Types [...] 07/05/2025 9:00 AM EST Office Visit [facility] [address] [place] [phone] Kasey Rodriguez MD [address] [place] [address] documented as of this encounter Visit Diagnoses Diagnosis Essential hypertension Unspecified essential hypertension documented in this encounter Additional Health Concerns Assessment Noted Time PHQ-9 Depression Total Score: 4 03/16/20 23 9:21 AM EDT documented as of this encounter Care Teams Certified Caregiver Relationship Specialty Start Date End Date Kasey Rodriguez MD [address] [place] [phone] PCP - General Internal Medicine 02/23/23 Robert Caring 06/12/23 documented as of this encounter
== END 2025-06-01 08:14 | disposition home or self-care (01) ==
LOC: HO.HUSH 07:34
PROVIDERS: PCP Internal Medicine; Visit Provider Nurse Practitioner Family
DX: N52.9 Male erectile dysfunction, unspecified (principal)
CPT/HCPCS: 99213; G2211